=== PATIENT | male | born 1930 | race Caucasian/White ===

== ENCOUNTER 2016-05-02 16:11 | Observation (INO) | payer MEDICARE ==
[~2016-05-02] VITALS: Ht 170.2 cm; Wt 94.3 kg
[2016-05-02 16:15] VITALS: BP 134/99
[2016-05-02 16:38] LABS: BASOPHILS % (AUTO) 0 % (0-10); EOSINOPHILS # (AUTO) 0.2 10^3/uL (0.0-0.3); EOSINOPHILS % (AUTO) 3 % (0-10); LYMPHOCYTES # (AUTO) 2.2 X 10^3 (1.0-4.0); LYMPHOCYTES % (AUTO) 30 % (12-44); MEAN CORPUSCULAR HEMOGLOBIN 37 PG (25-34); MEAN CORPUSCULAR HGB CONC 37 G/DL (32-36); MEAN CORPUSCULAR VOLUME 99 FL (80-99); MEAN PLATELET VOLUME 9.7 FL (7.4-10.4); MONOCYTES # (AUTO) 0.8 X 10^3 (0.0-1.0); MONOCYTES % (AUTO) 10 % (0-12); NEUTROPHILS # (AUTO) 4.2 X 10^3 (1.8-7.8); NEUTROPHILS % (AUTO) 57 % (42-75); PLATELET COUNT 177 10^3/uL (130-400); RED BLOOD COUNT 4.37 10^6/uL (4.35-5.85); RED CELL DISTRIBUTION WIDTH 12.2 % (10.0-14.5); WHITE BLOOD COUNT 7.3 10^3/uL (4.3-11.0)
--- NOTE | 2016-05-02 16:43 | ED Neurological Problem ---
General Chief Complaint: Neuro-Stroke Like Symptoms Stated Complaint: SLURRED SPEECH/ISSUES WITH MOTOR SKILLS Source: patient (SPEECH DIFFICULT TO UNDERSTAND), family History of Present Illness Time seen by provider: 16:22 Initial Comments PT ARRIVES VIA POV FROM HOME PT HAS BEEN HAVING TIA/STROKE SYMPTOMS SINCE MARCH WITH OVERALL GRADUAL DECLINE IN NEURO STATUS--HAS BEEN SEEN BY DR. ENCARNACION, NEUROLOGIST ( HAS BEEN SEEING HIM FOR A LONG TIME, BUT PT AND FAMILY ARE NOT SURE WHY HE HAS BEEN SEEING HIM) , AND IS CURRENTLY ON PLAVIX PT HAS HAD WORSENING SYMPTOMS SINCE Monday04/29/16 WITH WORSENING OF SPEECH DIFFICULTIES, AND FAMILY NOTICED ON MONDAY THAT HE WAS HAVING PROBLEMS USING HIS RIGHT ARM--WEAK/COORDINATION PROBLEMS. SYMPTOMS ARE NOT ANY DIFFERENT TODAY FAMILY REPORT THAT SPEECH IS ACTUALLY BETTER AT THIS TIME HAVE NOT SOUGHT CARE FOR THIS MOST RECENT PROBLEM UNTIL TODAY. FAMILY CALLED NEUROLOGIST TODAY AND WAS TOLD TO COME HERE. NO HEADACHE NO DIZZINESS NO VISION CHANGES NO NAUSEA/VOMITING NO CHEST PAIN NO SHORTNESS OF BREATH PT ONLY HAS CHRONIC PAIN/NUMBNESS/TINGLING IN BOTH FEET FROM NEUROPATHY, AND IS EQUAL BILATERALLY AND NO DIFFERENT TODAY PCP: FT. [facility]AGO CODY. NEUROLOGIST: DR. ENCARNACION Allergies and Home Medications Allergies Coded Allergies: No Known Drug Allergies (Unverified , 01/16/11) Constitutional: no symptoms reported Eyes: No Symptoms Reported Ears, Nose, Mouth, Throat: no symptoms reported Respiratory: no symptoms reported Cardiovascular: no symptoms reported Gastrointestinal: LLQ Genitourinary: no symptoms reported Musculoskeletal: no symptoms reported Skin: no symptoms reported Psychiatric/Neurological: See HPI Endocrine: No Symptoms Reported Hematologic/Lymphatic: No Symptoms Reported Past Iicliqg-Gpiwid-Tgzkdq Hx Patient Social History Alcohol Use: Rarely Uses Recreational Drug Use: No Smoking Status: Former Smoker (QUIT 30 YEARS AGO, PER PT ON 05/02/16) Recent Foreign Travel: No Contact w/Someone Who Travel: No Surgeries HX Surgeries: Yes (CARDIAC CATH, STENT X 1) Surgeries: Cardiac, Coronary Stent Respiratory Hx Respiratory Disorders: No Cardiovascular Hx Cardiac Disorders: Yes Cardiac Disorders: Coronary Artery Disease, Heart Attack, Hypertension Neurological Hx Neurological Disorders: Yes Neurological Disorders: Neuropathy, TIA Genitourinary Hx Genitourinary Disorders: No Gastrointestinal Hx Gastrointestinal Disorders: No Musculoskeletal Hx Musculoskeletal Disorders: No Endocrine Hx Endocrine Disorders: Yes Endocrine Disorders: Diabetes, Non-Insulin dep HEENT HX ENT Disorders: No Cancer Hx Cancer: No Psychosocial Hx Psychiatric Problems: No Integumentary HX Skin/Integumentary Disorder: No Blood Transfusions Hx Blood Disorders: No Physical Exam Vital Signs Capillary Refill : General Appearance: WD/WN no apparent distress HEENT: PERRL/EOMI Neck: non-tender full range of motion supple normal inspection Respiratory: normal breath sounds no respiratory distress no accessory muscle use Cardiovascular: regular rate, rhythm no murmur Gastrointestinal: normal bowel sounds non tender soft Extremities: normal range of motion non-tender normal inspection no pedal edema no calf tenderness normal capillary refill Neurologic/Psychiatric: 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 BUT NOT ON MY EXAM. PT HAVING SOME SLURRED SPEECH AND EXPRESSIVE APHASIA) Crainal Nerves: PERRLNo facial droop Motor/Sensory: no sensory deficit Skin: normal color warm/dry Focused Exam Lactic Acid Level Laboratory Tests Test 05/02/16 16:31 Alanine Aminotransferase (ALT/SGPT) 34U/L (0-55) Albumin 4.2G/DL (3.2-4.5) Alkaline Phosphatase 54U/L (40-136) Anion Gap 10MMOL/L (5-14) Aspartate Amino Transf (AST/SGOT) 25U/L (5-34) BUN/Creatinine Ratio 19 Blood Urea Nitrogen 18MG/DL (7-18) Calcium Level 8.7MG/DL (8.5-10.1) Carbon Dioxide Level 24MMOL/L (21-32) Chloride Level 105MMOL/L (98-107) Creatinine 0.96MG/DL (0.60-1.30) Estimat Glomerular Filtration Rate > 60 Glucose Level 192MG/DL (70-105) H Magnesium Level 2.2MG/DL (1.8-2.4) Myoglobin 40.1NG/ML (10.0-92.0) Potassium Level 4.6MMOL/L (3.6-5.0) Sodium Level 139MMOL/L (135-145) TSH [place] Testing 0.68UIU/ML (0.35-4.94) Total Bilirubin 0.7MG/DL (0.1-1.0) Total Protein 7.4G/DL (6.4-8.2) Troponin I < 0.30NG/ML (<0.30) Progress/Results/Core Measures Results/Orders Lab Results Laboratory Tests Test 05/02/16 16:31 Range/Units Activated Partial Thromboplast Time 23 L 24-35 SEC Alanine Aminotransferase (ALT/SGPT) 34 0-55 U/L Albumin 4.2 3.2-4.5 G/DL Alkaline Phosphatase 54 40-136 U/L Anion Gap 10 5-14 MMOL/L Aspartate Amino Transf (AST/SGOT) 25 5-34 U/L BUN/Creatinine Ratio 19 Basophils # (Auto) 0.0 0.0-0.1 10^3/uL Basophils (%) (Auto) 0 0-10 % Blood Urea Nitrogen 18 7-18 MG/DL Calcium Level 8.7 8.5-10.1 MG/DL Carbon Dioxide Level 24 21-32 MMOL/L Chloride Level 105 98-107 MMOL/L Creatinine 0.96 0.60-1.30 MG/DL Eosinophils # (Auto) 0.2 0.0-0.3 10^3/uL Eosinophils (%) (Auto) 3 0-10 % Estimat Glomerular Filtration Rate > 60 Glucose Level 192 H 70-105 MG/DL Hematocrit 43 40-54 % Hemoglobin 16.0 13.3-17.7 G/DL INR Comment 1.1 0.8-1.4 Lymphocytes # (Auto) 2.2 1.0-4.0 X 10^3 Lymphocytes (%) (Auto) 30 12-44 % Magnesium Level 2.2 1.8-2.4 MG/DL Mean Corpuscular Hemoglobin 37 H 25-34 PG Mean Corpuscular Hemoglobin Concent 37 H 32-36 G/DL Mean Corpuscular Volume 99 80-99 FL Mean Platelet Volume 9.7 7.4-10.4 FL Monocytes # (Auto) 0.8 0.0-1.0 X 10^3 Monocytes (%) (Auto) 10 0-12 % Myoglobin 40.1 10.0-92.0 NG/ML Neutrophils # (Auto) 4.2 1.8-7.8 X 10^3 Neutrophils (%) (Auto) 57 42-75 % Platelet Count 177 130-400 10^3/uL Potassium Level 4.6 3.6-5.0 MMOL/L Prothrombin Time 13.7 12.2-14.7 SEC Red Blood Count 4.37 4.35-5.85 10^6/uL Red Cell Distribution Width 12.2 10.0-14.5 % Sodium Level 139 135-145 MMOL/L TSH [place] Testing 0.68 0.35-4.94 UIU/ML Total Bilirubin 0.7 0.1-1.0 MG/DL Total Protein 7.4 6.4-8.2 G/DL Troponin I < 0.30 <0.30 NG/ML White Blood Count 7.3 4.3-11.0 10^3/uL My Orders Orders-RUBY ROJAS DO Ekg Tracing (05/02/16 16:33) Cbc With Automated Diff (05/02/16 16:33) Comprehensive Metabolic Panel (05/02/16 16:33) Protime With Inr (05/02/16 16:33) Partial Thromboplastin Time (05/02/16 16:33) Magnesium (05/02/16 16:33) Chest 1 View, Ap/Pa Only (05/02/16 16:33) Cardiac Profile 1 (05/02/16 16:33) Cardiac Profile 2 (05/02/16 22:33) Myoglobin Serum (05/02/16 16:33) Ct Head Wo (05/02/16 16:33) Monitor-Rhythm Ecg Trace Only (05/02/16 16:33) Saline Lock/Iv-Start (05/02/16 16:33) Thyroid Analyzer (05/02/16 16:33) Ua Culture If Indicated (05/02/16 16:33) Enoxaparin Injection (Lovenox Injection) (05/02/16 17:30) Medications Given in ED Current Medications Medications Dose Ordered Sig/Taqueria Route Start Time Stop Time Status Last Admin Dose Admin Enoxaparin Sodium 100 mg ONCE ONCE SC 05/02/16 17:30 05/02/16 17:31 DC 05/02/16 17:59 100 MG Progress Note : Progress Note NO DETERIORATION IN PT'S CONDITION DURING ER STAY ECG Initial ECG Impression Time: 16:22 Initial ECG Rate: 76 Initial ECG Rhythm: Normal Sinus (RBBB) Initial ECG Comparisson: No Previous ECG Available Diagnostic Imaging Comments CXR--NO ACUTE PROCESS CT HEAD--CHRONIC SMALL VESSEL ISCHEMIC CHANGES, 6 MM HYPERDENSITY IN RIGHT PARIETAL AREA--CALCIFICATION VS PUNCTATE HEMORRHAGE PER RADIOLOGIST REPORTS @ 1645 Reviewed: Reviewed by Me, Discussed w/Radiologist Departure Communication Progress Notes 6455--SPOKE WITH DR. 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 Referrals: JOSÉ MIGUEL ROSALES MD (PCP/Family) Primary Care Physician RUBY ROJAS DO May 02, 2016 16:43
[2016-05-02 16:46] LABS: INR 1.1 (0.8-1.4); PROTHROMBIN TIME PATIENT 13.7 SEC (12.2-14.7)
--- NOTE | 2016-05-02 16:47 | Diagnostic Imaging Report ---
INDICATION: Slurred speech EXAM: Portable chest at 4:39 p.m. FINDINGS: Heart size and pulmonary vascularity are normal. Lungs are clear. There are no effusions or pneumothoraces IMPRESSION: Negative chest Dictated by: Dictated on workstation # [id number]
[2016-05-02 16:54] LABS: ALANINE AMINOTRANSFERASE 34 U/L (0-55); ALBUMIN 4.2 G/DL (3.2-4.5); ANION GAP 10 MMOL/L (5-14); ASPARTATE AMINO TRANSFERASE 25 U/L (5-34); BILIRUBIN,TOTAL 0.7 MG/DL (0.1-1.0); BLOOD UREA NITROGEN 18 MG/DL (7-18); BUN/CREATININE RATIO 19; CALCIUM 8.7 MG/DL (8.5-10.1); CARBON DIOXIDE 24 MMOL/L (21-32); CHLORIDE 105 MMOL/L (98-107); CREATININE SERUM 0.96 MG/DL (0.60-1.30); GFR ESTIMATED > 60; GLUCOSE 192 MG/DL (70-105); MAGNESIUM 2.2 MG/DL (1.8-2.4); POTASSIUM 4.6 MMOL/L (3.6-5.0); SODIUM 139 MMOL/L (135-145); TOTAL PROTEIN 7.4 G/DL (6.4-8.2)
--- NOTE | 2016-05-02 17:02 | Diagnostic Imaging Report ---
PROCEDURE: CT head without contrast. TECHNIQUE: Multiple contiguous axial images were obtained through the brain without the use of intravenous contrast. INDICATION: Slurred speech. FINDINGS: There is a 6 mm hyperdense focus seen in the right periventricular white matter, indeterminate whether it represents a focal intraparenchymal hemorrhage or calcification. There is background periventricular and deep white matter hypodensities compatible with chronic microvascular ischemic changes with old appearing lacunar infarcts in the left [place] radiata. There is no hydrocephalus. No extra-axial fluid collection is seen. The calvarium, the paranasal sinuses and orbits visualized portions appear grossly unremarkable. IMPRESSION: There is a 6 mm focus of hyperdensity in the periventricular white matter which may relate to calcification or focal parenchymal hemorrhage. There is background chronic microvascular ischemic changes in the white matter. No prior studies are available for comparison. A CT scan followup in 24-48 hours is suggested. The findings were discussed with Dr. Gomez by Dr. Lyle at time of dictation. Dictated by: Dictated on workstation # [id number]
[2016-05-02 17:14] LABS: MYOGLOBIN SERUM 40.1 NG/ML (10.0-92.0)
[2016-05-02] MEDS ORDERED: ENOXAPARIN 100 MG/1 ML (LOVENOX) SYR SC ONE (17:30)
[2016-05-02] MEDS ORDERED: ASPI-999 PO (18:39)
[2016-05-02] MEDS ORDERED: SIMV40TA4 PO (18:39)
[2016-05-02] MEDS ORDERED: CLOP75TA28 PO (18:39)
[2016-05-02] MEDS ORDERED: LISI40TA PO (18:39)
[2016-05-02] MEDS ORDERED: DOXA8TAB73 PO (18:39)
[2016-05-02] MEDS ORDERED: PHEN100C11 PO (18:39)
[2016-05-02] MEDS ORDERED: FINA5TAB6 PO (18:39)
[2016-05-02] MEDS ORDERED: GLYB5TAB6 PO (18:39)
[2016-05-02] MEDS ORDERED: FISH1CAP15 PO (18:39)
[2016-05-02] MEDS ORDERED: DONE10TA41 PO (18:39)
[2016-05-02] MEDS ORDERED: CYAN25006 SL (18:39)
[2016-05-02 19:00] VITALS: BP 142/72
[2016-05-02] MEDS ORDERED: CATHETER FLUSH 10 ML SYR IV PRN (19:00)
[2016-05-02] MEDS: ENOXAPARIN 100 MG/1 ML (LOVENOX) SYR SC SCH (19:11)
[2016-05-02 20:00] VITALS: BP 142/72
[2016-05-02 21:00] VITALS: BP 148/88
[2016-05-02 22:00] VITALS: BP 134/65
[2016-05-02 23:00] VITALS: BP 143/71
[2016-05-02] MEDS: CATHETER FLUSH 10 ML SYR IV SCH (23:20)
[2016-05-03] VITALS (17 sets, daily range): BP systolic 108–149; BP diastolic 64–96
[2016-05-03 04:37] LABS: BASOPHILS % (AUTO) 0 % (0-10); EOSINOPHILS # (AUTO) 0.4 10^3/uL (0.0-0.3); EOSINOPHILS % (AUTO) 5 % (0-10); LYMPHOCYTES % (AUTO) 40 % (12-44); MEAN CORPUSCULAR HEMOGLOBIN 36 PG (25-34); MEAN CORPUSCULAR HGB CONC 36 G/DL (32-36); MEAN CORPUSCULAR VOLUME 99 FL (80-99); MONOCYTES # (AUTO) 0.8 X 10^3 (0.0-1.0); MONOCYTES % (AUTO) 11 % (0-12); NEUTROPHILS # (AUTO) 3.3 X 10^3 (1.8-7.8); NEUTROPHILS % (AUTO) 45 % (42-75); PLATELET COUNT 159 10^3/uL (130-400); RED CELL DISTRIBUTION WIDTH 12.3 % (10.0-14.5); WHITE BLOOD COUNT 7.4 10^3/uL (4.3-11.0)
[2016-05-03 05:12] LABS: ALANINE AMINOTRANSFERASE 31 U/L (0-55); ALBUMIN 3.6 G/DL (3.2-4.5); ANION GAP 11 MMOL/L (5-14); ASPARTATE AMINO TRANSFERASE 22 U/L (5-34); BILIRUBIN,TOTAL 0.4 MG/DL (0.1-1.0); BLOOD UREA NITROGEN 16 MG/DL (7-18); BUN/CREATININE RATIO 18; CALCIUM 8.3 MG/DL (8.5-10.1); CARBON DIOXIDE 24 MMOL/L (21-32); CHLORIDE 106 MMOL/L (98-107); CREATININE SERUM 0.89 MG/DL (0.60-1.30); GFR ESTIMATED > 60; GLUCOSE 156 MG/DL (70-105); POTASSIUM 4.2 MMOL/L (3.6-5.0); SODIUM 141 MMOL/L (135-145); TOTAL PROTEIN 6.4 G/DL (6.4-8.2)
[2016-05-03] MEDS: ENOXAPARIN 100 MG/1 ML (LOVENOX) SYR SC SCH ×2 (06:09→16:55)
[2016-05-03] MEDS: CATHETER FLUSH 10 ML SYR IV SCH (06:12)
[2016-05-03] MEDS ORDERED: CYAN250010 PO (10:04)
--- NOTE | 2016-05-03 10:35 | History & Physical-Hospitalist ---
HPI History of Present Illness: HPI/Chief Complaint The patient's an 86-year-old white male who is brought to the emergency room last night by his family. From the patient and his family get a history going back Perhaps 2 months in which he had developed speech problems as well as some swallowing difficulty. There is some statement of mild right-sided weakness. They thought that this had gotten somewhat worse yesterday and had called their neurologist Dr. Tres banda [place] who advised them to get to the nearest emergency room. The definition of acute phase here is difficult to extract Date Seen 05/03/16 Attending Physician Lior Dasilva MD PCP No,Local Physician Referring Physician Date of Admission May 02, 2016 at 17:37 Home Medications & Allergies Home Medications Reviewed patient Home Medication Reconciliation Form Allergies Allergies Coded Allergies No Known Drug Allergies (Cxcjcgpucq16/4/11) Past Rcrzwin-Xoerpe-Fbzogf Hx Patient Social History Alcohol Use: Occasionally Uses Recreational Drug Use: No Smoking Status: Former Smoker Physical Abuse Screen: No Sexual Abuse: No Recent Foreign Travel: No Contact w/other who traveled: No Recent Hopitalizations: No Recent Infectious Disease Expo: No Immunizations Up To Date Date of Pneumonia Vaccine: Dec 15, 2015 Date of Influenza Vaccine: Oct 15, 2015 Surgeries HX Surgeries: Yes (CARDIAC CATH, STENT X 1) Surgeries: Cardiac, Coronary Stent Respiratory Hx Respiratory Disorders: No Cardiovascular Hx Cardiovascular Disorders: Yes Cardiac Disorders: Coronary Artery Disease, Heart Attack, Hypertension Neurological Hx Neurological Disorders: Yes Neurological Disorders: Neuropathy, TIA Genitourinary Hx Genitourinary Disorders: No Gastrointestinal Hx Gastrointestinal Disorders: No Musculoskeletal Hx Musculoskeletal Disorders: No Endocrine Hx Endocrine Disorders: Yes Endocrine Disorders: Diabetes, Non-Insulin dep HEENT HX ENT Disorders: No HEENT Disorders: Cataract Cancer Hx Cancer: No Psychosocial Hx Psychiatric Problems: No Integumentary HX Skin/Integumentary Disorder: No Blood Transfusions Hx Blood Disorders: No Family Medical History Family Hx: Diabetes mellitus 19 MOTHER FH: congestive heart failure 19 MOTHER Headache disorder Hypertension 19 FATHER Myocardial infarction 19 FATHER Review of Systems Constitutional: see HPI EENTM: see HPI Respiratory: no symptoms reported Cardiovascular: other (previous NV) Gastrointestinal: no symptoms reported Genitourinary: no symptoms reported Musculoskeletal: muscle weakness Skin: no symptoms reported Psychiatric/Neurological: Numbness Pre-Existing Deficit Tremors (left hand) Physical Exam Physical Exam Vital Signs Vital Sign - Last 12Hours Capillary Refill : Less Than 3 Seconds General Appearance: Mild Distress Eyes: Bilateral Eye Normal Inspection Neck: Normal Inspection Respiratory: Decreased Breath Sounds (distant but clear) Cardiovascular: Regular Rate, Rhythm No Edema No Gallop No JVD No Murmur Normal Peripheral Pulses Gastrointestinal: Normal Bowel Sounds No Organomegaly No Pulsatile Mass Non Tender Soft Back: Normal Inspection No CVA Tenderness No Vertebral Tenderness Extremity: Normal Capillary Refill Normal Inspection Normal Range of Motion Non Tender No Calf Tenderness No Pedal Edema Neurologic/Psychiatric: Alert Oriented x3 No Motor/Sensory Deficits Normal Mood/Affect Skin: Normal Color Warm/Dry Lymphatic: No Adenopathy Comments The patient is alert and pleasant. His tentative in speech and a man of few words. These tend to be somewhat difficult to understand. It also appears that he may have some difficulty in swallowing. I note no abnormality relative to his strength in the upper and lower extremities. [place] [employer] and coordination in the hands appear to be normal. Extension of the hands show a mild tremor on the left. Results Results/Procedures Lab Laboratory Tests 05/02/16 16:31 05/03/16 04:00 Assessment/Plan Admission Diagnosis 1.previous CVA as characterized by speech abnormality and swallowing difficulties. 2.questionable recent increase in symptomatology. 3.past history of myocardial infarction. 4.hypertension. 5.diabetes mellitus type II uzk-rpqxxyg-alaljntps. 6.peripheral neuropathy Assessment and Plan Complete studies relative to MRI, physical therapy, speech therapy, occupational therapy. In addition carotid Dopplers and echocardiogram will be done. Clinical Quality Measures DVT/VTE Risk/Contraindication: Risk Factor Score Per Nursin RFS Level Per Nursing on Admit: 4+=Very High Stroke: Date of last known well: Apr 29, 2016 LIOR DASILVA MD May 03, 2016 10:35
[2016-05-03] MEDS ORDERED: PHENYTOIN 100 MG (DILANTIN) CAP PO SCH (10:54)
[2016-05-03] MEDS ORDERED: lisINopril 20 MG (ZESTRIL) TAB PO SCH (10:55)
[2016-05-03] MEDS ORDERED: CLOPIDOGREL 75 MG (PLAVIX) TABLET PO SCH (10:55)
[2016-05-03] MEDS ORDERED: PATIENT MAY USE OWN MEDS, ALL MC SCH (11:15)
--- NOTE | 2016-05-03 11:19 | Diagnostic Imaging Report ---
PROCEDURE: US Carotid Duplex Bilateral. TECHNIQUE: Multiple real-time grayscale images were obtained over the carotid arteries in various projections bilaterally. Additional duplex Doppler and color Doppler images were also obtained. INDICATION: Difficulty speaking. FINDINGS: Grayscale images demonstrate mild thoracic atherosclerotic plaque along the carotid bifurcation slightly more prominent on the right side. Color Doppler demonstrates patency of the common, internal and external carotid arteries bilaterally. The vertebral arteries demonstrate antegrade flow on both sides. The right ICA velocities are 60, 50 and 82 CM per second from proximal to distal and on the left side 48, 44 and 53 CM per second. ICA versus CCA ratios are up to 1.1 on the right and up to 0.6 on the left. IMPRESSION: Asymmetric underlying stenosis is in the range of 0-40% bilaterally. Dictated by: Dictated on workstation # [id number]
--- NOTE | 2016-05-03 11:48 | Occupational Therapy Eval ---
OT Evaluation-General/PLF Medical Diagnosis Admission Date May 02, 2016 at 17:37 Medical Diagnosis: CVA with right sided weakness and aphasia Onset Date: May 02, 2016 (Daughter in room. States that pt. has acutally had symptoms for approximately 3 weeks, and that she was finally able to convince him to come to hospital.) Therapy Diagnosis Therapy Diagnosis: right sided weakness, Decreased ADL skills Height/Weight Height (Feet): 5 Height (Inches): 7.00 Weight (Pounds): 209 Weight (Ounces): 14.4 Precautions Precautions/Isolations: Fall Prevention, Standard Precautions Safety Interventions: Bed Exit Alarm, Reorient-PRN Weight Bear Status Weight Bearing Restriction: Weight Bearing/Tolerated Referral Physician: Dr. Reinoso Referral Reason: Activity Tolerance, Self Care, Evaluation/Treatment, Strengthening/ROM Medical History Pertinent Medical History: CAD, HTN Additional Medical History cardiac cath, stent x 1 Current History Daughter states that pt. has been "going down hill" for approximately 3 weeks. She states that he got to the point that she almost could not get him out of the car. She was finally able to convince him to come to the hospital. Reviewed History: Yes Social History Home: Single Level Current Living Status: Alone Entry Into Home: Ramp Steps Into Home: 1 (1 step over threshold.) ADL-Prior Level of Function ADL PLOF Comments Previous to 3 weeks ago, when pt. began having symptoms, he was completely independent with daily tasks. DME/Equipment: Bath Chair, Shower DME/Equipment Comments Pt. has a cane that he uses, and a rolling walker that he does not. Drive Self: Yes OT Current Status Subjective No pain reported at this time. Appearance Pt. has just returned from getting CT scan. In wheelchair. Agrees to allow OT to assist him to bed. Mental Status/Objective Patient Orientation: Person, Place Pt. is able to answer in one word answers. This is difficult for him however. Current Hand Dominance: Right Upper Extremity ROM Pt. is able to flex bilateral shoulders to approximately 100 degrees in bed. Demonstrates adequate ROM throughout other planes. Upper Extremity Coordination Seems intact at evaluation. Upper Extremity Strength 5/5 distally in left UE, 4/5 distally in right UE. Edema: no edema noted. ADL-Treatment Functional [place] Measure 0=Not Assessed/NA 4=Minimal Assistance 1=Total Assistance 5=Supervision or Setup 2=Maximal Assistance 6=Modified [place] 3=Moderate Assistance 7=Complete IndependenceIRFPAI Quality Coding Scale 6 Independent with activity with or without an assistive device 5 Patient requires set up or clean up by helper. Patient completes activity by themselves 4 Supervision or touching assist (CGA). Mousie provide cues , steadying assist 3 The helper provides less than half the effort to complete the activity 2 The helper provides more than half the effort to complete the activity 1 Dependent. The helper does all the effort to complete an activity 7 Patient refused to complete or attempt activity 9 The patient did not perform the activity before the current illness or injury 88 Not attempted due to Medical conditions or safety concerns Eating (FIM): 5 (Family states that he has been able to feed himself and swallow. However, has not been hungry. Daughter concerned over this, with pt. having diabetes. However, reported this to nursing and they are watching his blood sugar, and have been offering him food.) Lower Body Dressing (FIM): 3 (Pt. already dressed but did practice doffing/ donning socks. Pt. able to doff socks, but had difficulty getting on his left sock. Continually attempted to put it in between toes. OT assisted him.) Transfers (B, C, W/C) (FIM): 4 (Pt. required min assist to stand and take steps to bed. Pt. able to lay down with SBA, and able to pull self up in bed with SBA and cues to continue to do so.) Other Treatments Spoke with daughter and pt. regarding need for further therapy services. Pt.'s daughter had questions about "what is next." OT educated them on difference between inpatient rehab to go home, and skilled therapy. Pt. made face and daughter states, "he does not like that" when possible intermediate placement was brought up. It is felt at time of this evaluation, that pt. would be a good rehab candidate. Education OT Patient Education: Correct positioning, Exercise program, Modified ADL techniques, Progress toward Goal/Update tx plan, Purpose of tx/functional activities, Reviewed precautions, Rehab process, Transfer techniques Teaching Recipient: Patient, Family Teaching Methods: Demonstration, Discussion Response to Teaching: Verbalize Understanding, Return Demonstration OT Short Term Goals Short Term Goals Time Frame: May 10, 2016 Eating(FIM): 6 Grooming(FIM): 5 Bathing(FIM): 4 Upper Body Dressing(FIM): 4 Lower Body Dressing(FIM): 4 Toileting(FIM): 4 Transfers (B,C,W/C) (FIM): 5 Toilet/Commode Transfer(FIM): 5 Shower Transfer(FIM): 4 Additional Short Term Goals: 1-Demonstrate ADL Tasks, 2-Verbalize Understanding , 3-ImproveStrength/Gamaliel 1=Demonstrate adherence to instructed precautions during ADL tasks. 2=Patient will verbalize/demonstrate understanding of assistive devices/ modifications for ADL. 3=Patient will improve strength/tolerance for activity to enable patient to perform ADL's. OT Mcfp Goals Mcfp Goals Time Frame: May 24, 2016 Eating (FIM): 6 Grooming(FIM): 6 Bathing(FIM): 5 Upper Body Dressing(FIM): 6 Lower Body Dressing(FIM): 6 Toileting(FIM): 6 Transfers (B,C,W/C) (FIM): 6 Toilet/Commode Transfer(FIM): 6 Shower Transfer(FIM): 5 Additional Goals: 1-Demonstrate ADL Tasks, 2-Verbalize Understanding, 3- ImproveStrength/Gamaliel 1=Demonstrate adherence to instructed precautions during ADL tasks. 2=Patient will verbalize/demonstrate understanding of assistive devices/ modifications for ADL. 3=Patient will improve strength/tolerance for activity to enable patient to perform ADL's. OT Education/Plan Problem List/Assessment Assessment: Decreased Activ Tolerance, Decreased UE Strength, Dependent Transfers, Impaired Bed Mobility, Impaired Funct Balance, Impaired I ADL's, Impaired Self-Care Skills, Restricted Funct UE ROM Discharge Recommendations Plan/Recommendations: Continue POC Therapy D/C Recommendations: Acute Rehab Target Placement Pt. would benefit from inpatient rehab services. Treatment Plan/Plan of Care Treatment,Training & Education: Yes Patient would benefit from OT for education, treatment and training to promote independence in ADL's, mobility, safety and/or upper extremity function for ADL' s. Plan of Care: ADL Retraining, Caregiver Training, Cognitive Retraining, Functional Mobility, Group Exercise/Act as Ind, UE Funct Exercise/Act Treatment Duration: May 24, 2016 # of days/week 5-6 Visits Per Week: 5-6 Agreement: Yes Rehab Potential: Good Time/GCodes Start Time: 10:30 Stop Time: 10:50 Total Time Billed (hr/min): 20 Billed Treatment Time 1, EVhigh complexity x 20minutes TREY MICHELLE OT May 03, 2016 11:47
--- NOTE | 2016-05-03 11:51 | Diagnostic Imaging Report ---
PROCEDURE: CT head without contrast. TECHNIQUE: Multiple contiguous axial images were obtained through the brain without the use of intravenous contrast. INDICATION: Slurred speech. Followup hyperdensity in the right frontoparietal region. FINDINGS: When compared to 05/02/2016, a 6 cm hyperdensity in the right periventricular white matter is again noted without change. This could be a focus of parenchymal hemorrhage or calcification. There are background prominent periventricular and deep white hypodensities and lacunar infarcts in the white matter, more prominent in the left periventricular region. There is no hydrocephalus. No extra-axial fluid collection is seen. Geographic lucencies in the superior aspect of the calvarium in the frontal region on both sides are probably related to venous lakes. The visualized paranasal sinuses demonstrate minimal mucosal thickening in the left maxillary sinus. The orbits appear grossly unremarkable. IMPRESSION: The unchanged 6 mm right centrum semiovale hyperdensity could relate to focal parenchymal calcification or intraparenchymal hemorrhage. Dictated by: Dictated on workstation # [id number]
--- NOTE | 2016-05-03 12:16 | Physical Therapy Evaluation ---
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 States that pt. has acutally had symptoms for approximately 3 weeks, and that she was finally able to convince him to come to hospital.) Therapy Diagnosis Therapy Diagnosis: weakness; abn gait Height/Weight Height (Feet): 5 Height (Inches): 7.00 Weight (Pounds): 209 Weight (Ounces): 14.4 Precautions Precautions/Isolations: Fall Prevention, Standard Precautions Weight Bear Status Weight Bearing Restriction: Weight Bearing/Tolerated Referral Physician: Dr. Reinoso Reason for Referral: Evaluation/Treatment Medical History Pertinent Medical History: CAD, DM, HTN, [place] Current History Pt presents to ED with complaints of TIA like symptoms and expressive aphasia. Chart review indicates TIA-like symptoms since Mar with a gradual decline in function. Reviewed History: Yes Social History Home: Single Level Current Living Status: Alone Entry Into Home: Ramp PT Steps Into Home: 1 (1 step over threshold.) Prior/Core FIM Prior Level of Function Functional [place] Measure 0=Not Assessed/NA 4=Minimal Assistance 1=Total Assistance 5=Supervision or Setup 2=Maximal Assistance 6=Modified [place] 3=Moderate Assistance 7=Complete [place] Bed Mobility: 7 Transfers (B,C,W/C) (FIM): 7 Gait: 6 (occas use of cane) Reports he was able to bathe and dress himself and prepare meals. Reports he had someone clean his house. He was unclear if he did own shopping or not. PT Evaluation-Current Subjective Agreeable to PT. No complaints. Pain Numeric Pain Scale: 0-No Pain Location: No Pain Reported Objective Patient Orientation: Person, Place, Time, Situation Problem Solving: Fair ROM/Strength ROM Lower Extremities WFL Strenght Lower Extremities LE strength is grossly 4/5 throughout; unable to detect significant difference between left and right except DF on the right is 3/5. Integumentary/Posture Integumentary intact Bowel Incontinence: No Bladder Incontinence: No Posture normal and symmetrical Neuromuscular (Tone, Coordination, Reflexes) No noted tone. Decreased coordination right LE during gait. Reflexes intact. Sensory Vision: Functional Hearing: Functional Hand Dominance: Right Sensation Right Lower Extremit: Intact Sensation Left Lower Extremity: Intact Transfers Functional [place] Measure 0=Not Assessed/NA 4=Minimal Assistance 1=Total Assistance 5=Supervision or Setup 2=Maximal Assistance 6=Modified [place] 3=Moderate Assistance 7=Complete [place] Transfers (B, C, W/C) (FIM): 4 Supine to/from Sit: 4 (min assit to lift trunk) Sit to/from Stand: 4 (min -CGA to steady him) Gait Mode of Locomotion: Walk Anticipated Mode of Locomotion: Walk Gait (FIM): 2 Distance (FIM): 9=677-22 ft Distance: 125 ft Gait Level of Assist: 4 Gait Assistive Device: FWW Comments/Gait Description Narrow NERY with occas crossing; difficulty with turning 180 degrees with incidences of scissored gait; no yefri LOB noted but necessary to provide close CGA. Balance Sitting Static: Good Sitting Dynamic: Fair Standing Static: Fair Standing Dynamic: Fair Treatment Functional transfers and facilitation of transfers; functional mobility. Pt in chair post treatment with needs met. Assessment/Needs Pt presents with CVA like symptoms with continued testing to diagnose. He has slight weakness in DF on the right LE; requires assist with transfers, has balance deficits and impaired functional gait requiring assist for safety. He follows cues well and is participatory and motivated. He does demonstrate expressive aphasia. He would benefit from skilled PT services to address above noted deficits and assist in functional safety and mobility to allow him to return home alone as before. Rehab Potential: Good PT Short Term Goals Short Term Goals Time Frame: May 07, 2016 Transfers (B,C,W/C) (FIM): 5 Gait (FIM): 4 Distance (FIM): 3=150 ft Gait Assistive Device: FWW Additional Short Term Goals Post STG, recommend follow up therapy services at a different level of care to achieve mod indep status. PT Plan Problem List Problem List: Activity Tolerance, Functional Strength, Safety, Balance, Gait, Transfer, Bed Mobility Treatment/Plan Treatment Plan: Continue Plan of Care Treatment Plan: Bed Mobility, Education, Functional Activity Gamaliel, Functional Strength, Gait, Safety, Therapeutic Exercise, Transfers Treatment Duration: May 07, 2016 # of days/week 5-6 Visits Per Week: 11 Pt/Family Agrees w/Plan: Yes Safety Risks/Education Patient Education: Transfer Techniques, Safety Issues Teaching Recipient: Patient Teaching Methods: Demonstration, Discussion Response to Teaching: Reinforcement Needed Time/GCodes Time In: 1112 Time Out: 1140 Total Billed Treatment Time: 28 Total Billed Treatment visit EVM 15 FA 13 G Codes Necessary: Yes PT/OT Therapy GCodes Therapy Functional Limitation: Physical Therapy Test(s)/Tool used to determine: Level of Assistance Scale Functional Limitation-Current Charge Code: MOBCUR Modifier: RODERICK Functional Limitation-Goal Charge Code: KENNETH Modifier: MERNA JESSICA PT May 03, 2016 12:15
--- NOTE | 2016-05-03 12:58 | ST Dysphagia Evaluation ---
Speech Evaluation-General Medical Diagnosis CVA with Right Sided Weakness and Expressive Aphasia Onset Date: May 02, 2016 (Daughter in room. States that pt. has acutally had symptoms for approximately 3 weeks, and that she was finally able to convince him to come to hospital.) Therapy Diagnosis Therapy Diagnosis: Oropharyngeal Swallow WNL Precautions Precautions: Aspiration Precautions/Isolations: Fall Prevention, Standard Precautions Referral Referring Physician: Dr. Lior Reinoso Reason for Referral: Evaluation/Treatment Clinical Bedside Swallowing Evaluation Medical History Pertinent Medical History: CAD, DM, HTN, [place] TIA Reviewed History: Yes Social History Current Living Status: Alone Speech PLF/Current-Dysphagia Prior Level of Function While the patient does demonstrate mild to moderate expressive aphasia, he was able to report he consumed a regular diet with thin liquids prior to admission. The patient denied signs/symptoms of aspiration with the diet consistency he currently consumes. Subjective The patient was recently admitted to [facility] with a diagnosis of CVA with residual right sided weakness and expressive aphasia. Per chart review , the patient has been experiencing "speech" difficulties and progressive weakness since March 2016. The patient greeted the clinician upon entrance and agreed to participate in the dysphagia evaluation on this date. CXR: 05/02/2016: Negative Chest. Cognitive Status Patient Orientation: Person Oral Motor Skills Dentition: Natural Current Food Consistancy: Regular, Thin Liquids Ability to Follow Directions: Good The patient is currently receiving a heart healthy diet. Voice Voice Phonatory-Based Quality: Normal Voice Pitch: Normal Voice Loudness: Normal Face Facial Symmetry: Symmetrical Oral-Facial Assessment Oral-Facial Dentition: Normal Labial Seal Description: Normal Smile: Normal Puff Cheeks: Normal Lingual Protrusion: Normal Lingual ROM: Normal Lingual Strength: Normal Pharynx Velopharyngeal Move.: Normal Volitional Dry Swallow: Yes Dysphagia Evaluation Consistencies Presented: Regular, Thin Liquid, Pureed No oral impairments were noted throughout the evaluation. No pharyngeal impairments were noted throughout the evaluation. - Thin liquid (via teaspoon, cup sip, straw), puree, and solid: No signs/ symptoms of aspiration were demonstrated with multiple boluses of each consistency tested. The patient's vocal quality remained clear and his SpO2% remained stable at 93%. Dietary Recommendations: Regular Liquid Recommendations: Thin Swallowing Precautions: Small Bites and Sips, Sitting Upright 90 Degrees Dysphagia Evaluation Summary Oropharyngeal swallow function grossly WNL Speech-Plan Treatment Plan Speech Therapy Treatment Plan: Discontinue ST (For dysphagia, only.) Discontinue skilled speech services for dysphagia. Skilled speech services will continue with a detailed expressive and receptive language assessment. Rehab Potential: Good Safety Risks/Education Teaching Recipient: Patient Teaching Methods: Discussion Response to Teaching: Verbalize Understanding Education Topics Provided: Results, Recommendations, Signs/symptoms of aspiration Time Speech Therapy Time In: 10:40 Speech Therapy Time Out: 11:00 Total Billed Time: 20 Billed Treatment Time 1, DYSEVS Speech GCodes Functional Limitation-Current Current: ELDER Modifier: CH Functional Limitation-Goal Goal: SWALGOAL Modifier: CH Functional Limitation-D/C Discharge: [facility] Modifier: CH AUBREY MCMILLAN May 03, 2016 12:58
[2016-05-03] MEDS: LISINOPRIL 40 MG PO SCH (14:01)
[2016-05-03] MEDS: CLOPIDOGREL 75 MG (PLAVIX) TABLET PO SCH (14:01)
[2016-05-03] MEDS: PHENYTOIN 100 MG (DILANTIN) CAP PO SCH ×2 (14:02→20:49)
[2016-05-03] MEDS ORDERED: GADOBUTROL 10 MMOL/10 ML (GADAVIST) VIAL IV ONE (14:45)
--- NOTE | 2016-05-03 16:01 | Physical Therapy Daily Note ---
PT Daily Note-Current Subjective Pt sitting in recliner upon arrival and had just gotten back from MRI. Pt agrees to walk with PT. Mental Status Patient Orientation: Person, Place, Situation Transfers Functional [place] Measure 0=Not Assessed/NA 4=Minimal Assistance 1=Total Assistance 5=Supervision or Setup 2=Maximal Assistance 6=Modified [place] 3=Moderate Assistance 7=Complete IndependenceIRFPAI Quality Coding Scale 6 Independent with activity with or without an assistive device 5 Patient requires set up or clean up by helper. Patient completes activity by themselves 4 Supervision or touching assist (CGA). [place] provide cues , steadying assist 3 The helper provides less than half the effort to complete the activity 2 The helper provides more than half the effort to complete the activity 1 Dependent. The helper does all the effort to complete an activity 7 Patient refused to complete or attempt activity 9 The patient did not perform the activity before the current illness or injury 88 Not attempted due to Medical conditions or safety concerns Transfers (B, C, W/C) (FIM): 5 Scootin Sit to/from Stand: 5 Weight Bearing Weight Bearing Restriction: Full Weight Bearing Location Restriction: L LE Gait Training Gait (FIM): 4 Distance (FIM): 3=150 ft Distance: 400' Gait Level of Assist: 4 Gait Persons Needed: 1 Gait Assistive Device: FWW Pt ambulates at close CGA for safety due scissoring of feet when turning. Treatments Pt transferred at SBA using FWW. Pt ambulated using FWW at close CGA for safety. Pt returns to EOB in room to rest and visit with family at end of tx with all needs met. Assessment Current Status: Good Progress Pt wants to increase his walking distance and get stronger to go home. PT Short Term Goals Short Term Goals Time Frame: May 07, 2016 Transfers (B,C,W/C) (FIM): 5 Gait (FIM): 4 Distance (FIM): 3=150 ft Gait Assistive Device: FWW PT Plan Problem List Problem List: Activity Tolerance, Functional Strength, Safety, Balance, Gait, Transfer Treatment/Plan Treatment Plan: Continue Plan of Care Treatment Plan: Bed Mobility, Education, Functional Activity Gamaliel, Functional Strength, Gait, Safety, Therapeutic Exercise, Transfers Treatment Duration: May 07, 2016 Visits Per Week: 11 Safety Risks/Education Patient Education: Gait Training, Transfer Techniques, Correct Positioning, Safety Issues Teaching Recipient: Patient Teaching Methods: Discussion Response to Teaching: Verbalize Understanding Time/GCodes Time In: 1530 Time Out: 1545 Total Billed Treatment Time: 15 Total Billed Treatment visit, GT (15m) PT/OT Therapy GCodes Therapy Functional Limitation: Physical Therapy Test(s)/Tool used to determine: Level of Assistance Scale Functional Limitation-Current Charge Code: MOBCUR Modifier: FERN Functional Limitation-Goal Charge Code: MOBGOAL Modifier: SAKSHI ANDERSON LADLE PULLER May 03, 2016 16:01
--- NOTE | 2016-05-03 16:08 | Diagnostic Imaging Report ---
PROCEDURE: MR imaging of the brain with and without contrast. TECHNIQUE: Multiplanar, multisequence MR imaging of the brain was performed with and without contrast. INDICATION: Weakness. Slurred speech. 9 mL of Gadavist is administered intravenously. FINDINGS: There are areas of diffusion restriction seen in the periventricular white matter on the left side along the frontoparietal region of the [place] radiata with patchy areas, the largest is 1.6 x 1 cm in size. This is associated with T2 hyperintense lesion and no contrast enhancement compatible with a late acute to subacute infarct. These are within the left MCA territory. There is background T2 hyperintense signal seen in the white matter bilaterally in periventricular, deep and juxtacortical locations compatible with chronic microvascular ischemic changes. There is no enhancing mass in the brain or extra-axial space. There is no hydrocephalus. No fluid collection in the extra-axial space is seen. The focus of hyperdensity seen in the right centrum semiovale noted on concurrent CT scan is occult by MRI. As explained on the CT scan report, it could be related to focal parenchymal calcification or hemorrhage. Based on the acute infarcts in the left [place] radiata, probably explaining the symptoms, the right centrum semiovale hyperdensity on CT scan is more likely to be incidental calcification from prior insult. The pituitary gland is normal in size. No hypothalamic or pineal region mass. The internal auditory canals and inner ear structures appear unremarkable. The central vascular flow-voids appear preserved. The visualized portions of the paranasal sinuses and the mastoid air cells demonstrate no significant abnormality. The orbits appear symmetric. IMPRESSION: 1. Patchy relatively small areas of late acute to subacute infarcts within the left frontoparietal periventricular white matter up to 2 cm in size. These are within the left MCA territory. 2. The focal hyperdensity in the right frontoparietal region seen on CT scan is occult by MRI. Given the recent infarct in the left hemisphere, probably explaining the recent symptoms, the focal hyperdensity CT finding is favored to be an incidental parenchymal calcification. Dr. Reinoso was informed of the findings at time of dictation. Dictated by: Dictated on workstation # [id number]
[2016-05-03] MEDS: glyBURIDE 5 MG (MICRONASE) TAB PO SCH (16:55)
[2016-05-03] MEDS ORDERED: ASPIRIN 81 MG CHEW (CHILDREN'S ASA) PO SCH (21:00)
[2016-05-03] MEDS ORDERED: SIMvastatin 40 MG (ZOCOR) TAB PO SCH (21:00)
[2016-05-03] MEDS ORDERED: DONEPEZIL 10 MG (ARICEPT) TAB PO SCH (21:00)
[2016-05-04 04:00] VITALS: BP 136/74
[2016-05-04] MEDS: ENOXAPARIN 100 MG/1 ML (LOVENOX) SYR SC SCH (06:10)
[2016-05-04] MEDS: glyBURIDE 5 MG (MICRONASE) TAB PO SCH (06:11)
--- NOTE | 2016-05-04 08:06 | ECHOCARDIOGRAPHY REPORT ---
PROCEDURE PHYSICIAN: GIOVANNY CARDOSO DATE OF PROCEDURE: 05/03/2016 TWO DIMENSIONAL ECHOCARDIOGRAM REPORT PRIMARY PHYSICIAN: OTHER PHYSICIAN: REFERRING PHYSICIAN: Dr. Lior Reinoso ORDERING PHYSICIAN: INDICATION FOR THE PROCEDURE: 1. Hypertension. 2. Shortness of breath. MEASUREMENTS DERIVED VALUES LV DIAMETER (LAX) NORMALS NORMALS Diastolic 4 (3.6-5.2) Eject. Fract. 60% (60%+/-6%) Systolic (2.3-3.9) Diastolic Vol. % Shortening (0.22-0.42) Systolic Vol. Aortic Root IVS THICKNESS Diastolic 1.2 (0.6-1.1) LVPW THICKNESS Diastolic 1.2 (0.6-1.1) LA DIAMETER Systolic 4.3 (2.1-3.7) FINDINGS: 1. Technical quality is good. 2. The left ventricle is normal in size with mild left ventricular hypertrophy noted diffusely. Systolic function appeared to be normal. Estimated ejection fraction 60%. 3. The left atrium is normal in size. No clot or thrombus were seen within the left atrium. 4. The right atrium and right ventricle are normal in size. No clot or thrombus were seen within the right side. 5. Mitral valve is normal in morphology with myxomatous degeneration of the mitral leaflet. Mild mitral regurgitation noted by color Doppler flow. No mitral valve prolapse. No mitral valve stenosis. 6. Aortic valve is trileaflet with normal opening with normal opening and closing pattern. No significant aortic valve stenosis was noted. Mild to moderate aortic regurgitation noted by color Doppler flow. 7. Tricuspid valve is normal in morphology with mild tricuspid regurgitation noted by color Doppler flow. Doppler across tricuspid valve estimated pulmonary artery pressure of 36+ right atrial pressure. 8. Pulmonic valve is functioning normally. 9. No pericardial effusion. IN CONCLUSION: 1. Mild to moderate left ventricular hypertrophy noted diffusely with normal systolic function. Estimated ejection fraction 60%. 2. Mildly dilated left atrium. 3. 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 4. Aortic valve sclerosis. No aortic stenosis, mild to moderate aortic regurgitation. 5. Pulmonary hypertension with estimated pulmonary artery pressure of 45 mmHg. Job ID: [id number] Dictated Date: 05/03/2016 15:47:10 Concrete Hopper Operator Date: 05/04/2016 07:59:05 / leo
[2016-05-04 08:45] VITALS: BP 111/62
[2016-05-04] MEDS: CLOPIDOGREL 75 MG (PLAVIX) TABLET PO SCH (08:45)
[2016-05-04] MEDS: LISINOPRIL 40 MG PO SCH (08:46)
[2016-05-04] MEDS: PHENYTOIN 100 MG (DILANTIN) CAP PO SCH (08:47)
[2016-05-04] MEDS ORDERED: ENOX100D4 SC (09:56)
--- NOTE | 2016-05-04 09:57 | Discharge Summary-Hospitalist ---
Diagnosis/Chief Complaint Date of Admission May 02, 2016 at 17:37 Date of Discharge Discharge Date: May 04, 2016 Admission Diagnosis 1.previous CVA as characterized by speech abnormality and swallowing difficulties. 2.questionable recent increase in symptomatology. 3.past history of myocardial infarction. 4.hypertension. 5.diabetes mellitus type II [id number]. 6.peripheral neuropathy Discharge Diagnosis 1.previous CVA as characterized by speech abnormality and swallowing difficulties. 2.questionable recent increase in symptomatology. 3.past history of myocardial infarction. 4.hypertension. 5.diabetes mellitus type II [id number]. 6.peripheral neuropathy Reason Hospital Visit/Course The patient's an 86-year-old white male who is brought to the emergency room last night by his family. From the patient and his family get a history going back Perhaps 2 months in which he had developed speech problems as well as some swallowing difficulty. There is some statement of mild right-sided weakness. They thought that this had gotten somewhat worse yesterday and had called their neurologist Dr. Tres banda Loraine who advised them to get to the nearest emergency room. The definition of acute phase here is difficult to extract Notes from 05/04/2016: Chart Review: Brain MRI late acute to subacute infarct left side. drip box tender: RN states that strength is improving bilaterally and pt is able to swallow. Pt has some difficulty speaking. Pt stable for DC to home if pt feels ready. Rehab will also accept pt. Pt's daughter will visit today. Patient Interview: Pt states that he is doing well today. Pt able to ambulate, drink, and eat without complications. Physical exam stable. Pt has minor pain. Pt reports normal BMs. no fever, vital signs stable, pleasant, slightly aphasic Regular rate and rhythm, clear to auscultation bilaterally Plan: In-patient rehab Scribed by Samuel Denton under the direct supervision of Dr. Mitchell. Hospital course: Patient had an uneventful hospital course it was felt that the stroke had affected his ability to speak and overall balance so he stabilized and was sent to inpatient rehabilitation for further management and recovery following stroke. Discharge Summary Discharge Physical Examination Allergies: Coded Allergies: No Known Drug Allergies (Unverified , 01/16/11) Vitals & I&Os Vital Signs Date Time Temp Pulse Resp B/P (MAP) Pulse Ox O2 Delivery O2 Flow Rate FiO2 05/04/16 10:49 05/04/16 09:00 Room Air 05/04/16 08:45 96.2 57 16 98 Hospital Course Labs (last 24 hrs) Laboratory Tests 05/03/16 16:17: Glucometer 180H 05/03/16 20:27: Glucometer 151H 05/04/16 06:43: Glucometer 142H 05/04/16 10:33: Glucometer 222H Pending Labs Laboratory Tests 05/04/16 06:43: Glucometer 142 05/04/16 10:33: Glucometer 222 Discharge Home Medications: Active Scripts Active Enoxaparin Sodium 100 Mg/1 Ml Syringe 100 Mg SC Q12H 30 Days Reported Vitamin B12 (Cyanocobalamin (Vitamin B-12)) 2,500 Mcg Tablet 1,250 Mcg PO DAILY TAKES 1/2 OF A (2,500 MCG) TABLET Glyburide 5 Mg Tablet 5 Mg PO BIDAC Clopidogrel (Clopidogrel Bisulfate) 75 Mg Tablet 75 Mg PO DAILY Aspirin 81 Mg Tab.chew 81 Mg PO HS Finasteride 5 Mg Tablet 5 Mg PO HS Simvastatin 40 Mg Tablet 20 Mg PO HS TAKES 1/2 OF A (40 MG) TABLET Fish Oil 1,200 mg Fish Oil (Fish Oil/Dha/Epa) 1 Each Capsule 2,400 Mg PO BID TAKES 2 (1,200 MG) CAPSULES Doxazosin Mesylate 8 Mg Tablet 4 Mg PO HS TAKES 1/2 OF A (8 MG) TABLET Donepezil HCl 10 Mg Tablet 10 Mg PO HS Lisinopril 40 Mg Tablet 40 Mg PO DAILY Phenytoin Sodium Extended 100 Mg Capsule 200 Mg PO BID TAKES 2 (100 MG) CAPSULES Instructions to patient/family Please see electonic discharge instructions given to patient. Clinical Quality Measures DVT/VTE Risk/Contraindication: Risk Factor Score Per Nursin RFS Level Per Nursing on Admit: 4+=Very High Stroke: Date of last known well: Apr 29, 2016 MARYAM MITCHELL DO May 04, 2016 09:57
== END 2016-05-04 09:56 ==
LOC: DELPENDDIS → EDUNIT# 16:11 → ER 16:14 → UNDOADMOB 17:37 → ICU 17:37 → 4TH 05-03 14:06 → ICU 05-03 14:06 → UNDODISOB 05-04 10:32
PROVIDERS: ADMIT Internal Medicine; ATTEND Internal Medicine
DX: I69.320 Aphasia following cerebral infarction (principal); I69.391 Dysphagia following cerebral infarction; I10 Essential (primary) hypertension; E11.9 Type 2 diabetes mellitus without complications; G62.9 Polyneuropathy, unspecified; I25.2 Old myocardial infarction; Z79.84 Long term (current) use of oral hypoglycemic drugs
CPT/HCPCS: 36415; 70450; 70553; 71010; 80053; 82962; 83735; 83874; 84443; 84484; 85025; 85610; 85730; 93005; 93041; 93306; 93880; 96372; G0378

== ENCOUNTER 2016-05-04 10:32 | Inpatient (IN) | payer MEDICARE ==
[~2016-05-04] VITALS: Ht 167.6 cm; Wt 93.2 kg
[~2016-05-04 10:32] MED LIST: ASPI-999 PO; CLOP75TA28 PO; CYAN250010 PO; CYAN25006 SL; DONE10TA41 PO; DOXA8TAB73 PO; ENOX100D4 SC; FINA5TAB6 PO; FISH1CAP15 PO; GLYB5TAB6 PO; LISI40TA PO; PHEN100C11 PO; SIMV40TA4 PO
[2016-05-04 12:00] VITALS: BP 100/62
--- NOTE | 2016-05-04 12:16 | Physical Therapy Evaluation ---
PT Evaluation-General Medical Diagnosis Admission Date May 04, 2016 at 10:32 Medical Diagnosis: CVA Onset Date: May 02, 2016 Therapy Diagnosis Therapy Diagnosis: weakness; abn gait Height/Weight Height (Feet): 5 Height (Inches): 7.00 Weight (Pounds): 207 Weight (Ounces): 14.4 Precautions Precautions/Isolations: Standard Precautions Referral Physician: Christiano Reason for Referral: Evaluation/Treatment Medical History Pertinent Medical History: CAD, DM, HTN, [place] Current History Pt admitted with stroke like symptoms; family reports this type of symptom ongoing since Mar with a gradual decline in function. Reviewed History: Yes Social History Home: Single Level Current Living Status: Alone Entry Into Home: Ramp Prior/Core FIM Prior Level of Function Functional [place] Measure 0=Not Assessed/NA 4=Minimal Assistance 1=Total Assistance 5=Supervision or Setup 2=Maximal Assistance 6=Modified [place] 3=Moderate Assistance 7=Complete [place] Bed Mobility: 7 Transfers (B,C,W/C) (FIM): 7 Gait: 6 (occas use of Quad cane, but not always) Pt reports he still drives and is a community ambulator. PT Evaluation-Current Subjective Agreeable to PT. Denies pain. Pain Numeric Pain Scale: 0-No Pain Location: No Pain Reported Objective Patient Orientation: Person, Place, Time, Situation Problem Solving: Fair ROM/Strength ROM Lower Extremities WFL Strenght Lower Extremities grossly 4/5 throughout Integumentary/Posture Integumentary Intact Bowel Incontinence: No Bladder Incontinence: No Posture normal and symmetrical Neuromuscular (Tone, Coordination, Reflexes) Slight diminished coordination right LE with turning and during gait activities. No noted increased or decreased tone and reflexes intact Sensory Vision: Wears Glasses Hearing: Functional Hand Dominance: Right Sensation Right Lower Extremit: Intact Sensation Left Lower Extremity: Intact Transfers Functional [place] Measure 0=Not Assessed/NA 4=Minimal Assistance 1=Total Assistance 5=Supervision or Setup 2=Maximal Assistance 6=Modified [place] 3=Moderate Assistance 7=Complete IndependenceIRFPAI Quality Coding Scale 6 Independent with activity with or without an assistive device 5 Patient requires set up or clean up by helper. Patient completes activity by themselves 4 Supervision or touching assist (CGA). [place] provide cues , steadying assist 3 The helper provides less than half the effort to complete the activity 2 The helper provides more than half the effort to complete the activity 1 Dependent. The helper does all the effort to complete an activity 7 Patient refused to complete or attempt activity 9 The patient did not perform the activity before the current illness or injury 88 Not attempted due to Medical conditions or safety concerns Transfers (B, C, W/C) (FIM): 4 Roll Left to Right (QC): 5 Supine to/from Sit: 4 (assist to sit up in bed to transfer to EOB) Sit to/from Stand: 4 (CGA for safety. ) Sit to Lying (QC): 5 Lying to Sitting/Side of Bed(Q: 4 Sit to Stand (QC): 4 Chair/Dbr-sy-Xgmaj Xfer(QC): 4 Car Transfer (QC): 4 Requires heavy cueing for hand placement with sit to/from stand, want to reach for or leave hands on the walker. Gait Does the Patient Walk?: Yes Mode of Locomotion: Walk Anticipated Mode of Locomotion: Walk Gait (FIM): 4 Distance (FIM): 3=150 ft Walk 10 feet (QC): 4 Walk 50 ft with 2 Turns(QC): 4 Walk 150 ft (QC): 4 Walking 10ft/uneven surface-QC: 4 Gait Assistive Device: FWW Comments/Gait Description Skilled cues for safety with turning and CGA for safety. Pt tends to run into objects on his right and had trouble squaring up to uneven surface with acknowledging the right edge. Cues and min assist to correct. Wheelchair Training Does the Pt Use a Wheelchair?: No Stairs Stairs (FIM): 1 #of Steps: 1 Level of Assist: 4 (CGA for safety and verbal cues to sequence. ) 1 Step (curb) (QC): 4 4 Steps (QC): 88 Assistive Device: Walker 12 Steps (QC): 88 Balance Sitting Static: Good Sitting Dynamic: Good Standing Static: Fair Standing Dynamic: Fair Picking up an Object (QC): 4 Treatment Gait training with turns and varied surfaces to focus on attention to the right. Also worked on sit to from stand anc correct hand placement. Assessment/Needs Post CVA with deficits with gait and safety and noted right neglect with ambulation and management of FWW safely. He has some difficulty with sequencing for sit to from stand transfers needing heavy cuing to complete correctly. slight balance deficits noted as well. Pt is an excellent candidate for skilled PT intervention to work on functional strength and mobility to allow him to return home alone. Co morbidities include TIA like symptoms x 2 months, IA, HTN, DM. Systems affected include gait, balance, transfers, safety awareness and feel his presentation is unstable as the expressive aphasia seems more enhances as well as the right neglect. High complexity evaluation. Rehab Potential: Good PT Short Term Goals Short Term Goals Time Frame: May 11, 2016 Transfers (B,C,W/C) (FIM): 5 Gait (FIM): 5 Distance (FIM): 3=150 ft Stairs (FIM): 4 PT Custodial Goals Custodial Goals PT Custodial Goals Time Frame: May 25, 2016 Transfers (B,C,W/C) (FIM): 7 Sit to Lying (QC): 6 Lying-Sitting on Side/Bed(QC): 6 Sit to Stand (QC): 6 Roll Left to Right (QC): 6 Chair/Zor-tw-Vjnkj Xfer(QC): 6 Car Transfer (QC): 6 Does the Patient Walk: Yes Gait (FIM): 6 Gait distance (FIM): 3=150 ft Walk 10 feet (QC): 6 Walk 10ft-Uneven Surface(QC): 6 Walk 50ft with 2 Turns (QC): 6 Walk 150 ft (QC): 6 Gait Assistive Device: FWW Does the Pt use WC or Scooter?: No Stairs (FIM): 6 # of Steps: 12 1 Step (curb) (QC): 6 4 Steps (QC): 6 12 Steps (QC): 6 Picking up an Object (QC): 6 PT Plan Problem List Problem List: Activity Tolerance, Functional Strength, Safety, Balance, Gait, Transfer, Bed Mobility Treatment/Plan Treatment Plan: Continue Plan of Care Treatment Plan: Bed Mobility, Education, Functional Activity Gamaliel, Functional Strength, Group Therapy, Gait, Safety, Therapeutic Exercise, Transfers Treatment Duration: May 25, 2016 # of days/week 5-6 Visits Per Week: 10-15 Minutes/Day (M-F): 60-90 Minutes/Day (Sat/Fierro): prn Pt/Family Agrees w/Plan: Yes Safety Risks/Education Patient Education: Transfer Techniques, Safety Issues Teaching Recipient: Patient Teaching Methods: Demonstration, Discussion Response to Teaching: Reinforcement Needed Discharge Recommendations Therapy D/C Recommendations: Physical Therapy Home Care Time/GCodes Time In: 1020 Time Out: 1100 Total Billed Treatment Time: 40 Total Billed Treatment visit EVH 15 GT 15 FA 10 MERNA HUMPHRIES PT May 04, 2016 12:16
--- NOTE | 2016-05-04 13:08 | Occupational Therapy Eval ---
OT Evaluation-General/PLF Medical Diagnosis Admission Date May 04, 2016 at 10:32 Medical Diagnosis: CVA Onset Date: May 02, 2016 Therapy Diagnosis Therapy Diagnosis: Right sided weakness, Decreased ADL skills Height/Weight Height (Feet): 5 Height (Inches): 6.00 Weight (Pounds): 206 Weight (Ounces): 0.8 Precautions Precautions/Isolations: Standard Precautions Weight Bear Status Weight Bearing Restriction: Weight Bearing/Tolerated Referral Physician: Christiano Referral Reason: Activity Tolerance, Self Care, Evaluation/Treatment, Strengthening/ROM Medical History Pertinent Medical History: CAD, DM, HTN, [place] Current History Daughter states at yesterday's session, that pt. was having symptoms for the last three weeks. He began having increased weakness. Daughter was able to talk him into going to hospital. Reviewed History: Yes Social History Home: Single Level Current Living Status: Alone Entry Into Home: Ramp ADL-Prior Level of Function ADL PLOF Comments Previous to three weeks ago, pt. was independent with daily tasks. 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 is non verbal. He attempts to speak, but is unable to get words out. OT provides paper and pen, but pt. is unable to legibly write. Is able to nod yes and no. Appearance Pt. is up in chair. Is able to indicate that he has already bathed and dressed on acute. Pt. does however agree to work with OT. Mental Status/Objective Patient Orientation: Person Please defer speech to speech pathologist. Current Hand Dominance: Right Upper Extremity ROM Pt. is today able to demonstrate bilateral ROM functionally within all planes. Upper Extremity Coordination Pt. demonstrates impaired coordination in right UE. With further testing, pt. had difficulty tying his shoes. Also noted that when he was completing a beading activity, he would switch hands so that his left was his dominant, even with cues to stay with the right. Pt. is able to grasp objects, but noted that he does not complete full hand closure, and requires cues to perform this. Upper Extremity Strength Left UE- 4/5 distally Right UE- 3/5 distally Edema: no edema noted. ADL-Treatment Functional [place] Measure 0=Not Assessed/NA 4=Minimal Assistance 1=Total Assistance 5=Supervision or Setup 2=Maximal Assistance 6=Modified [place] 3=Moderate Assistance 7=Complete IndependenceIRFPAI Quality Coding Scale 6 Independent with activity with or without an assistive device 5 Patient requires set up or clean up by helper. Patient completes activity by themselves 4 Supervision or touching assist (CGA). [place] provide cues , steadying assist 3 The helper provides less than half the effort to complete the activity 2 The helper provides more than half the effort to complete the activity 1 Dependent. The helper does all the effort to complete an activity 7 Patient refused to complete or attempt activity 9 The patient did not perform the activity before the current illness or injury 88 Not attempted due to Medical conditions or safety concerns Lower Body Dressing (FIM): 4 (Pt. is able to doff/don socks, and doff/don shoes. However, requires cues to tie shoes.) On/Off Footwear (QC): 4 Transfers (B, C, W/C) (FIM): 4 (CGA with transfers. Able to stand and ambulate with CGA. Requires cues due to inattention on right side.) Noted during transfers that pt. demonstrates right sided neglect. OT completed crude testing for visual kaur. Note that pt. seems to be unable to see anything in upper quadrant kaur. Is able to see items at mid range and below. Other Treatments Pt. ambulated to therapy gym with CGA. Completed 5 minutes on armbike. Tested blood pressure. 95/59. Waited a minute and took it again. 100/62. Waited another minute and then taken again. 102/63. Pt. completed another 5 minutes on armbike at mod resistance. Tolerated well. Indicates that he is not dizzy. Blood pressure again is 98/63. Ambulated back to room. All needs met. Nursing notified of pt's blood pressure. Education OT Patient Education: Correct positioning, Exercise program, Modified ADL techniques, Progress toward Goal/Update tx plan, Purpose of tx/functional activities, Reviewed precautions, Rehab process, Transfer techniques Teaching Recipient: Patient Teaching Methods: Demonstration, Discussion Response to Teaching: Verbalize Understanding, Return Demonstration OT Short Term Goals Short Term Goals Time Frame: May 11, 2016 Eating(FIM): 5 Grooming(FIM): 5 Bathing(FIM): 4 Upper Body Dressing(FIM): 5 Lower Body Dressing(FIM): 5 Toileting(FIM): 5 Transfers (B,C,W/C) (FIM): 5 Toilet/Commode Transfer(FIM): 5 Shower Transfer(FIM): 4 Additional Short Term Goals: 1-Demonstrate ADL Tasks, 2-Verbalize Understanding , 3-ImproveStrength/Gamaliel 1=Demonstrate adherence to instructed precautions during ADL tasks. 2=Patient will verbalize/demonstrate understanding of assistive devices/ modifications for ADL. 3=Patient will improve strength/tolerance for activity to enable patient to perform ADL's. OT Pattern Fitter Goals Pattern Fitter Goals Time Frame: May 18, 2016 Eating (FIM): 6 Eating (QC): 6 Groomin Oral Hygiene (QC): 6 Bathing(FIM): 5 Shower/Bathe Self (QC): 5 Upper Body Dressing(FIM): 6 Upper Body Dressing (QC): 6 Lower Body Dressing(FIM): 6 Lower Body Dressing (QC): 6 On/Off Footwear (QC): 6 Toileting(FIM): 6 Toileting Hygiene (QC): 6 Transfers (B,C,W/C) (FIM): 6 Toilet/Commode Transfer(FIM): 6 Toilet/Commode Transfer (QC): 6 Shower Transfer(FIM): 5 Additional Goals: 1-Demonstrate ADL Tasks, 2-Verbalize Understanding, 3- ImproveStrength/Gam[place]iel 1=Demonstrate adherence to instructed precautions during ADL tasks. 2=Patient will verbalize/demonstrate understanding of assistive devices/ modifications for ADL. 3=Patient will improve strength/tolerance for activity to enable patient to perform ADL's. OT Education/Plan Problem List/Assessment Assessment: Decreased Activ Tolerance, Decreased UE Strength, Dependent Transfers, Impaired Bed Mobility, Impaired Coordination, Impaired Funct Balance , Impaired I ADL's, Impaired Self-Care Skills, Visual-Perceptual Deficit Discharge Recommendations Plan/Recommendations: Continue POC Therapy D/C Recommendations: Home w/ Family Support, Occupational Therapy Home Care, Scheduled Assistance Comment Unsure at this time of exact equipment needs. Pt. unable to fully state what equipment he has at home. Target Placement Home with daughter support. Patient/Family Goals On acute, daughter told this therapist that pt. adamently does not want to go to a [facility]. Treatment Plan/Plan of Care Treatment,Training & Education: Yes Patient would benefit from OT for education, treatment and training to promote independence in ADL's, mobility, safety and/or upper extremity function for ADL' s. Plan of Care: ADL Retraining, Functional Mobility, UE Funct Exercise/Act Treatment Duration: May 18, 2016 # of days/week 5-6 Visits Per Week: 10-12 Minutes/Day (M-F): 60-90 Minutes/Day (Sat/Fierro): PRN Agreement: Yes Rehab Potential: Good Time/GCodes Start Time: 11:00 Stop Time: 11:50 Total Time Billed (hr/min): 50 Billed Treatment Time 1, EVmod complexity x 15minutes, FA x 35minutes TREY MICHELLE OT May 04, 2016 13:08
--- NOTE | 2016-05-04 14:53 | Therapy Group Daily Note ---
Therapy Daily Group Note Patient Education Topic Home Safety Exercises LE Seated Exercise, UE Exercise Other/Notes Pt was an active participant in OT group but did seem sleepy at times. He was unable to verbally introduce himself to the group but could nod yes and no when questioned - he indicated that he likes to be outside in the springtime. He attended to group education/discussion on home safety and fall prevention but was not able to verbally offer comments. He did seated exercises but needed occasion additional physical or verbal assistance. At the end of the group, he was not able to verbalize the springtime activities of the other group members but nodded agreement. He walked back to his room with assistance, FWW and was left seated in recliner, chair alarm on, all needs met. Start Time: 13:00 Stop Time: 14:10 Total Billed Treatment Time: 70 Total Billed Treatment visit, 70 minutes group DARELL GALVEZ OT May 04, 2016 14:53
--- NOTE | 2016-05-04 15:13 | ST Cognitive Linguistic Eval ---
Speech Evaluation-General Medical Diagnosis CVA Onset Date: May 02, 2016 Therapy Diagnosis Therapy Diagnosis: Severe Expressive Aphasia, Moderate Receptive Aphasia Precautions Precautions/Isolations: Standard Precautions Referral Referring Physician: Dr. Rafi Alvarado Reason for Referral: Evaluation/Treatment Cognitive, Speech, Language Evaluation Medical History Pertinent Medical History: CAD, DM, HTN, [place] Reviewed History: Yes Social History Current Living Status: Alone Speech PLF-Current Status Prior Level of Function The patient was unable to provide information regarding prior level of function due to severe expressive aphasia. Subjective The patient was recently admitted to [facility] following a CVA with residual weakness and expressive aphasia. The patient made eye contact with clinician upon entrance into the room. The patient agreed ( nonverbally with head nod) to participate in the cognitive, speech, and language evaluation on this date. Language Eval: Auditory Comprehends Simple Yes/No Ques: Moderate (Inconsistent: The patient demonstrated inconsistent, inaccurate responses to simple and complex yes/no questions.) Indent/Objects Multiple Lauren: Moderate (The patient was able to inconsistently name single, common objects.) Ident/Pics in Multiple Lauren: Moderate (The patient was able to identify pictures by function, however, not by name.) Follows 1-Step Commands: Severe (The patient was able to intermittently following single, one-step commands, however, frequent repetition and direct modeling was necessary.) Follows Complex Directions: Severe Follows General Conversations: Moderate Language Eval: Verbal Language Completes Spontaneous Greeting: Moderate Produces Auto, Serial Info: Severe Imitates Simple Words/Phrases: Severe (The patient was able to intermittently repeat single words following several attempts. The patient was unable to repeat short phrases.) Requests Basic Needs: Severe States Basic Personal Info: Severe Expresses Complex Ideas: Severe Language Evaluation: Reading Comprehends Single Nouns: Severe Follows Simple Written Direct: Severe The patient was unable to follow written directions, read single words, or identify specific single words in a field of three. Language Evaluation: Writing Writes to Simple Dictation: Severe Writes Personal Information: Severe (The patient was unable to write personal information (request presented verbally and in writing).) Cognitive Patient Orientation Patient orientation is unknown due to severe expressive and moderate receptive aphasia. The patient stated his first name once, however, was unable to repeat his name at the close of the session or provide additional orientation information. Objective Cognitive Domain Unable to receive accurate cognitive information/results due to severe expressive and moderate receptive aphasia. Objective Oral Motor/Speech Production A right labial droop is noted, as well as, right labial weakness. Imprecise articulation was noted throughout patient's attempts to repeat clinician's prompts. Impression The patient demonstrates severe expressive aphasia and moderate receptive aphasia. Communication/Social Cognition Comprehension: 2 Expression: 1 Social Interaction: 2 Speech Patient Assess Expression of Ideas/Wants: Rarely/Never (1) Understanding [place] Content: Rarely/Never Understand (1) Brief Interview-Mental Status: No(pt is rarely/never understood) Memory/Recall Ability: None of the above were recalled Speech Short Term Goals Short Term Goals Short Term Goals 1. The patient will state names of five common objects and five common pictures with 90% accuracy and mild clinician cueing. 2. The patient will repeat single words and short phrases with 90% accuracy with moderate clinician verbal cueing. 3. The patient will demonstrated 90% accuracy with simple yes/no questions. 4. The patient will display 90% accuracy with simple, one-step commands. Time Frame-STG: Three Weeks Speech Fdc Goals Mold Carrier Goals 1. The patient will demonstrate improved receptive and expressive communication skills for increased safety and function with ADL's. Time Frame: Two Months Comprehension: 3 Expression: 3 Social Interaction: 4 Speech-Plan Treatment Plan Speech Therapy Treatment Plan: Continue Plan of Care Continue skilled speech therapy to target receptive and expressive communication. Treatment Duration: June 29, 2016 # of days/week Five. Visits Per Week: Five. Minutes/Day (M-F): 30 to 60 Rehab Potential: Guarded Safety Risks/Education Teaching Recipient: Patient, Family Teaching Methods: Discussion Response to Teaching: Verbalize Understanding, Reinforcement Needed Education Topics Provided: Results, Recommendations Time Speech Therapy Time In: 14:10 Speech Therapy Time Out: 14:40 Total Billed Time: 30 Billed Treatment Time 1, GALINDOANAYA AUBREY MCMILLAN May 04, 2016 15:13
[2016-05-04 17:00] VITALS: BP 118/66
[2016-05-04] MEDS: ENOXAPARIN 100 MG/1 ML (LOVENOX) SYR SC SCH (17:11)
[2016-05-04] MEDS: glyBURIDE 5 MG (MICRONASE) TAB PO SCH (17:11)
[2016-05-04] MEDS: OMEGA 3 (FISH OIL) 1000 MG CAP PO SCH (17:11)
[2016-05-04] MEDS: FINASTERIDE (PROSCAR) 5 MG TAB PO SCH (20:57)
[2016-05-04] MEDS: PHENYTOIN 100 MG (DILANTIN) CAP PO SCH (20:57)
[2016-05-04] MEDS: SIMvastatin 20 MG (ZOCOR) TAB PO SCH (20:57)
[2016-05-04] MEDS: DONEPEZIL 10 MG (ARICEPT) TAB PO SCH (20:57)
[2016-05-04] MEDS: doxAzosin 4 MG (CARDURA) TAB PO SCH (20:59)
[2016-05-05] MEDS: ENOXAPARIN 100 MG/1 ML (LOVENOX) SYR SC SCH (05:33)
[2016-05-05 05:39] VITALS: BP 136/70
[2016-05-05] MEDS: glyBURIDE 5 MG (MICRONASE) TAB PO SCH ×2 (06:45→16:16)
[2016-05-05] MEDS: OMEGA 3 (FISH OIL) 1000 MG CAP PO SCH ×2 (06:45→16:15)
[2016-05-05] MEDS: lisINopril 20 MG (ZESTRIL) TAB PO SCH (08:00)
[2016-05-05] MEDS: CLOPIDOGREL 75 MG (PLAVIX) TABLET PO SCH (08:01)
[2016-05-05] MEDS: CYANOCOBALAMIN 500 MCG TAB (VITAMIN B-12) PO SCH (08:01)
[2016-05-05] MEDS: ASPIRIN 81 MG CHEW (CHILDREN'S ASA) PO SCH (08:02)
[2016-05-05] MEDS: PHENYTOIN 100 MG (DILANTIN) CAP PO SCH ×2 (08:27→20:22)
--- NOTE | 2016-05-05 09:00 | Physical Therapy Daily Note ---
PT Daily Note-Current Subjective Pt sitting in recliner upon arrival. Pt agrees to PT by nodding due to unable to verbalize. Pain Location: No Pain Reported Mental Status Patient Orientation: Person, Place, Time, Situation Pt has some cognitive awareness problems and when FWW is in front of pt, pt will stand without staff. Transfers Functional [place] Measure 0=Not Assessed/NA 4=Minimal Assistance 1=Total Assistance 5=Supervision or Setup 2=Maximal Assistance 6=Modified [place] 3=Moderate Assistance 7=Complete IndependenceIRFPAI Quality Coding Scale 6 Independent with activity with or without an assistive device 5 Patient requires set up or clean up by helper. Patient completes activity by themselves 4 Supervision or touching assist (CGA). [place] provide cues , steadying assist 3 The helper provides less than half the effort to complete the activity 2 The helper provides more than half the effort to complete the activity 1 Dependent. The helper does all the effort to complete an activity 7 Patient refused to complete or attempt activity 9 The patient did not perform the activity before the current illness or injury 88 Not attempted due to Medical conditions or safety concerns Scootin Sit to/from Stand: 5 Sit to Stand (QC): 5 Weight Bearing Weight Bearing Restriction: Full Weight Bearing Location Restriction: LE Bilateral Gait Training Does the Patient Walk?: Yes Gait (FIM): 4 Distance (FIM): 3=150 ft Distance: 150' Walk 10 feet (QC): 4 Walk 50 ft with 2 Turns(QC): 4 Walk 150 ft (QC): 4 Gait Level of Assist: 4 Gait Persons Needed: 1 Gait Assistive Device: FWW Pt leans to the R side when ambulating and demonstrates some R neglect especially with turning toward R. Pt has slow [place] and has moments of unsteadiness but no LOB. Wheelchair Training Does the Pt Use a Wheelchair?: No Exercises Seated Therapy Exercises: Ankle pumps, Long arc quads, Hip flexion, Kicking activity Seated Reps: 20 NuStep Minutes: 10 NuStep Workload: 5 Treatments Pt transfers using FWW at close SBA for safety and balance upon standing. Pt ambulates using FWW at Min A-CGA for safety due to balance while ambulating. Pt uses NuStep and completes Seated Ex in chair to increase strength, activity tolerance and balance/coordination. Assessment Current Status: Fair Progress Pt needs VC for hand placement with transfers. Pt also tries to stand independently if FWW is in front of him. Pt has deficit in cognitive awareness. PT Short Term Goals Short Term Goals Time Frame: May 11, 2016 Transfers (B,C,W/C) (FIM): 5 Gait (FIM): 5 Distance (FIM): 3=150 ft Stairs (FIM): 4 PT Long-Term Goals Long-Term Goals PT Long-Term Goals Time Frame: May 25, 2016 Transfers (B,C,W/C) (FIM): 7 Sit to Lying (QC): 6 Lying-Sitting on Side/Bed(QC): 6 Sit to Stand (QC): 6 Roll Left to Right (QC): 6 Chair/Cal-fk-Wmppx Xfer(QC): 6 Car Transfer (QC): 6 Does the Patient Walk: Yes Gait (FIM): 6 Gait distance (FIM): 3=150 ft Walk 10 feet (QC): 6 Walk 10ft-Uneven Surface(QC): 6 Walk 50ft with 2 Turns (QC): 6 Walk 150 ft (QC): 6 Gait Assistive Device: FWW Does the Pt use WC or Scooter?: No Stairs (FIM): 6 # of Steps: 12 1 Step (curb) (QC): 6 4 Steps (QC): 6 12 Steps (QC): 6 Picking up an Object (QC): 6 PT Plan Problem List Problem List: Activity Tolerance, Functional Strength, Safety, Balance, Gait, Transfer Treatment/Plan Treatment Plan: Continue Plan of Care Treatment Plan: Bed Mobility, Education, Functional Activity Gamaliel, Functional Strength, Group Therapy, Gait, Safety, Therapeutic Exercise, Transfers Treatment Duration: May 25, 2016 Visits Per Week: 10-15 Minutes/Day (M-F): 60-90 Minutes/Day (Sat/Fierro): prn Safety Risks/Education Patient Education: Gait Training, Transfer Techniques, Correct Positioning, Safety Issues Teaching Recipient: Patient Teaching Methods: Discussion Response to Teaching: Reinforcement Needed Time/GCodes Time In: 800 Time Out: 845 Total Billed Treatment Time: 45 Total Billed Treatment visit, EX X2 (25m) & GT (20m) SAKSHI PRESSLEY PTA May 05, 2016 09:00
--- NOTE | 2016-05-05 09:45 | HISTORY AND PHYSICAL ---
DATE OF ADMISSION: 05/04/2016 CHIEF COMPLAINT: Difficulty with walking. HISTORY OF PRESENT ILLNESS: The patient is an 86 year-old male who was admitted via the ED to [facility] on 05/12 to the hospitalist service due to right-sided weakness, swallowing and speech difficulty. The patient had an MRI revealing an acute WA. He has a history of prior stroke with similar symptomatology and family has seen Dr. Joshua, neurologist, in the past. The patient was continued on home medications, Accu-Cheks monitored, and blood pressure control. The patient was started on therapy and found to be appropriate for inpatient rehabilitation. The patient referred here this date. PAST MEDICAL HISTORY: 1. Prior stroke. 2. WA. 3. Hypertension. 4. Coronary artery disease. 5. Type 2 diabetes mellitus. 6. Diabetic peripheral neuropathy. PAST SURGICAL HISTORY: Noncontributory. ALLERGIES: No known medication allergies. FAMILY HISTORY: Noncontributory. SOCIAL HISTORY: She lives alone in single level house with ramps. He lives in [place], [place]. REVIEW OF SYSTEMS: Ten-point review of systems significant for right-sided weakness, aphasia, cognitive impairment, difficulty with speech and memory. MEDICATIONS: 1. Lisinopril 40 mg p.o. daily. 2. Vitamin B12 1200 mcg p.o. daily. 3. Plavix 75 mg p.o. daily. 4. ASA 81 mg p.o. daily. 5. Simvastatin 20 mg p.o. at bedtime. 6. Phenytoin 200 mg p.o. q.12 h. 7. Cardura 4 mg p.o. at bedtime. 8. Finasteride 5 mg p.o. at bedtime. 9. Aricept 10 mg p.o. at bedtime. 10. Lovenox 100 mg subcutaneous q.12 hours. 11. Fish oil 2000 mg p.o. b.i.d. with meals. 12. Glyburide 5 mg p.o. b.i.d. before meals. PHYSICAL EXAMINATION: Significant for a male appearing his stated age, alert, and oriented in no acute distress. BMI 32.3 kg, per meter square. VITAL SIGNS: He is afebrile. Pulse 62, respirations 18, blood pressure 162, O2 sat 95% on room air. HEENT: He has some word finding difficulty, mild aphasia. Hearing and vision grossly intact. No oral lesion is noted. NECK: Supple without mass. HEART: Regular rhythm. LUNGS: Clear. ABDOMEN: Soft, nontender. Bowel sounds present. EXTREMITIES: No lower leg edema. No calf tenderness. MUSCULOSKELETAL: The patient has functional active range of motion of all 4 extremities. NEUROLOGIC: He has a mild right hemiparesis, mostly in the upper limb 3/5, right distally 4/5, left upper limb strength 4/5 of both lower extremities. He is reported to be continent of bowel and bladder. He has slightly diminished coordination on the right side. Sensation is grossly intact to touch. Cognition mildly impaired IMPRESSION: 1. Ambulatory dysfunction secondary to acute left-sided infarct with mild right hemiparesis and aphasia. 2. Hypertension, controlled with medication. 3. Diabetes type, controlled with medication. 4. History of prior stroke 5. Diabetic peripheral neuropathy. PLAN: The patient will have comprehensive program of inpatient rehabilitation with goal of maximizing level of functional independence prior to discharge home. The patient will have PT/OT 90 minutes per day, each discipline 5 days week for gait strengthening, conditioning, balance, ADLs, any patient family care and training necessary, any adaptive equipment and training necessary. Speech therapy to treat speech and cognitive impairments 3 to 5 times a week, 30 to 45 minutes per session for 2 to 3 weeks. Rehabilitation nursing to assist with bowel, bladder, and skin care. Rehabilitation nursing to assist with bowel, bladder, skin care, medication administration, pain management, reorientation as needed. grain farmworker to assist with discharge planning, community reentry. Follow-up with hospitalist service Dr. Weinberg for medical issues. Routine admission labs monitor Accu-Cheks, adjust medications as needed. ESTIMATED LENGTH OF STAY: 2 to 3 weeks. PROGNOSIS: Rehab prognosis appears good for goal of discharging home with family, modified independent to supervision for ADLs and mobility skills. DIET: Carb consistent. CODE STATUS: Full code. POST ADMISSION PHYSICIAN ASSESSMENT: The preadmission screen agrees with the post admission assessment that the patient is a good candidate for inpatient rehabilitation. He appears to be well motivated to participate in 3 hours of therapy a day. He should be able tolerate 3 hours therapy a day from a medical standpoint. He should benefit from the 3 hours of therapy a day. He has a reasonable discharge plan, reasonable discharge rehabilitation goals and a supportive family. He has various comorbidities that need to be closely monitored with medications and treatments adjusted on daily basis as needed. These include his hypertension and diabetes mellitus. BARRIERS TO DISCHARGE: Barriers to discharge for this patient who had been modified independent prior to this are for him to be modified independent to supervision for ADLs and mobility skills, with improved speech communication skills, cognitive skills, prior to discharge home so as to lessen the burden of the caregivers. RISKS FOR THIS PATIENT: Include: 1. Recurrent stroke. 2. Poorly controlled diabetes. 3. Poorly controlled hypertension. 4. DVT. 5. Pulmonary embolism. 6. Urinary retention. 7. UTI. 8. Respiratory infection. 9. Aspiration. 10. We will utilize SCDs for DVT prophylaxis. Job ID: [id number] Dictated Date: 05/04/2016 16:42:21 House Supervisor Date: 05/05/2016 09:06:44/leo
--- NOTE | 2016-05-05 10:01 | Speech Therapy Daily Note ---
Speech Daily Progress Note Subjective The patient was seated upright in recliner upon entrance. The patient greeted the clinician and was agreeable to participate in speech and language therapy on this date. To note, the patient appears more alert for his treatment session , replying to clinician's questions more promptly. Objective Orientation: The patient and clinician discussed the in-room white board for orientation aid on this date. The patient continues to state the date is (his date of ) regardless of maximum clinician cueing. With the use of the white board (external aid), the patient was able to intermittently ( increased accuracy) state the month, date, year, and day of week with verbal prompting and direct modeling by the clinician. Repetition: The patient was able to consistently repeat single words and short phrases with 100% accuracy on this date. The patient continues to demonstrate moderate dysarthria and right labial weakness, reduced coordination. Yes/No: Increased accuracy was demonstrated with yes/no questions (simple) on this date, however, moderate clinician verbal prompting was required (70% accuracy). Phrase Completion: The patient demonstrated 83% accuracy with simple phrase completion. Picture Naming: The patient demonstrated 65% accuracy with picture naming with mild clinician verbal cueing. * The patient demonstrated increased accuracy with receptive and expressive communication on this date. Assessment Assessment Current Status: Good Progress Treatment Plan Continue Plan of Care Communication Comprehension: 3 Expression: 2 Social Cognition Social Interaction: 2 Problem Solvin Memory: 3 Speech Short Term Goals Short Term Goals Short Term Goals 1. The patient will state names of five common objects and five common pictures with 90% accuracy and mild clinician cueing. 2. The patient will repeat single words and short phrases with 90% accuracy with moderate clinician verbal cueing. 3. The patient will demonstrated 90% accuracy with simple yes/no questions. 4. The patient will display 90% accuracy with simple, one-step commands. Time Frame-STG: Three Weeks Speech Long-Term Goals Long-Term Goals 1. The patient will demonstrate improved receptive and expressive communication skills for increased safety and function with ADL's. Time Frame: Two Months Comprehension: 3 Expression: 3 Social Interaction: 4 Speech-Plan Treatment Plan Speech Therapy Treatment Plan: Continue Plan of Care Continue skilled speech therapy to target expressive and receptive communication. Treatment Duration: June 29, 2016 # of days/week Five. Visits Per Week: Five. Minutes/Day (M-F): 30 to 60 Rehab Potential: Guarded Safety Risks/Education Teaching Recipient: Patient Teaching Methods: Demonstration, Discussion Response to Teaching: Verbalize Understanding, Return Demonstration, Reinforcement Needed Education Topics Provided: Orientation Strategies Time Speech Therapy Time In: 08:45 Speech Therapy Time Out: 09:15 Total Billed Time: 30 Billed Treatment Time 1, AUBREY GALLEGOS May 05, 2016 10:01
--- NOTE | 2016-05-05 11:01 | Occupational Ther Daily Note ---
OT Current Status-Daily Note Subjective Pt. attempts multiple times to verbalize, but has great difficulty. Is able to nod yes and no. No pain reported this morning. Appearance Pt. is up in chair. Agrees to shower. Mental Status/Objective Patient Orientation: Person Functional [place] Measure 0=Not Assessed/NA 4=Minimal Assistance 1=Total Assistance 5=Supervision or Setup 2=Maximal Assistance 6=Modified [place] 3=Moderate Assistance 7=Complete [place] ADL-Treatment Functional [place] Measure 0=Not Assessed/NA 4=Minimal Assistance 1=Total Assistance 5=Supervision or Setup 2=Maximal Assistance 6=Modified [place] 3=Moderate Assistance 7=Complete IndependenceIRFPAI Quality Coding Scale 6 Independent with activity with or without an assistive device 5 Patient requires set up or clean up by helper. Patient completes activity by themselves 4 Supervision or touching assist (CGA). [place] provide cues , steadying assist 3 The helper provides less than half the effort to complete the activity 2 The helper provides more than half the effort to complete the activity 1 Dependent. The helper does all the effort to complete an activity 7 Patient refused to complete or attempt activity 9 The patient did not perform the activity before the current illness or injury 88 Not attempted due to Medical conditions or safety concerns Grooming (FIM): 5 (set up to brush hair only. Pt. did indicate that he wanted to shave. Pt. has a razor in room, but no shave cream. Left note for family.) Bathing (FIM): 4 (Pt. needs constant CGA in stance during shower. Requires cues as well for safety.) Upper Body (FIM): 3 (Pt. has difficulty manipulating shirt over his head. Requires assistance for this.) Lower Body Dressing (FIM): 3 (Pt. is able to don underwear and pants with CGA, but requires assistance to don socks, and then assist to tie shoes.) Transfers (B, C, W/C) (FIM): 4 (Pt. requires min assist at times with hand placement on walker with right hand, especially when he fatigues.) Shower Transfer(FIM): 4 Other Treatment After shower, pt. ambulated to therapy gym. Tolerated armbike x 15 minutes at mod resistance. Worked on bilateral coordination on armbike for increased ability to don shirt, and other coordination with tasks. Pt. required several brief rest breaks, but unable to identify with therapist that he was tired. Pt. given nut/bolt activity. Pt. was asked to undo the bolts, and put them back on. Pt. able to undo them, but this was difficult for him. Pt. attempted to put them back together, but unable to do. Became discouraged. Pt. is encouraged to keep trying, as he needs to work on coordination. Ambulated back to room. All needs met. Education OT Patient Education: Correct positioning, Exercise program, Modified ADL techniques, Progress toward Goal/Update tx plan, Purpose of tx/functional activities, Reviewed precautions, Rehab process, Transfer techniques Teaching Recipient: Patient Teaching Methods: Demonstration, Discussion Response to Teaching: Verbalize Understanding, Return Demonstration OT Short Term Goals Short Term Goals Time Frame: May 11, 2016 Eating(FIM): 5 Grooming(FIM): 5 Bathing(FIM): 4 Upper Body Dressing(FIM): 5 Lower Body Dressing(FIM): 5 Toileting(FIM): 5 Transfers (B,C,W/C) (FIM): 5 Toilet/Commode Transfer(FIM): 5 Shower Transfer(FIM): 4 Additional Short Term Goals: 1-Demonstrate ADL Tasks, 2-Verbalize Understanding , 3-ImproveStrength/Gamaliel 1=Demonstrate adherence to instructed precautions during ADL tasks. 2=Patient will verbalize/demonstrate understanding of assistive devices/ modifications for ADL. 3=Patient will improve strength/tolerance for activity to enable patient to perform ADL's. OT [facility] Goals [facility] Goals Time Frame: May 18, 2016 Eating (FIM): 6 Eating (QC): 6 Groomin Oral Hygiene (QC): 6 Bathing(FIM): 5 Shower/Bathe Self (QC): 5 Upper Body Dressing(FIM): 6 Upper Body Dressing (QC): 6 Lower Body Dressing(FIM): 6 Lower Body Dressing (QC): 6 On/Off Footwear (QC): 6 Toileting(FIM): 6 Toileting Hygiene (QC): 6 Transfers (B,C,W/C) (FIM): 6 Toilet/Commode Transfer(FIM): 6 Toilet/Commode Transfer (QC): 6 Shower Transfer(FIM): 5 Comprehension(FIM): 3 Expression (FIM): 3 Social Interaction(FIM): 4 Additional Goals: 1-Demonstrate ADL Tasks, 2-Verbalize Understanding, 3- ImproveStrength/Gam[place]iel 1=Demonstrate adherence to instructed precautions during ADL tasks. 2=Patient will verbalize/demonstrate understanding of assistive devices/ modifications for ADL. 3=Patient will improve strength/tolerance for activity to enable patient to perform ADL's. OT Education/Plan Problem List/Assessment Assessment: Decreased Safety Aware, Decreased UE Strength, Impaired Coordination, Impaired Funct Balance, Impaired I ADL's, Impaired Self-Care Skills, Visual-Perceptual Deficit Pt. was noted to run into items on the right side. Note right sided neglect. Discharge Recommendations Plan/Recommendations: Continue POC Therapy D/C Recommendations: Home w/ Family Support, Occupational Therapy Home Care, Scheduled Assistance Barriers to Progress Aphasia, fatigue Target Placement Home with family support. Treatment Plan/Plan of Care Treatment,Training & Education: Yes Patient would benefit from OT for education, treatment and training to promote independence in ADL's, mobility, safety and/or upper extremity function for ADL' s. Plan of Care: ADL Retraining, Functional Mobility, UE Funct Exercise/Act Treatment Duration: May 18, 2016 Visits Per Week: 10-12 Minutes/Day (M-F): 60-90 Minutes/Day (Sat/Fierro): PRN Agreement: Yes Rehab Potential: Fair Time/GCodes Start Time: 09:30 Stop Time: 10:45 Total Time Billed (hr/min): 75 Billed Treatment Time 1, ADL x 45minutes, Ex x 15minutes, FA x 15minutes TREY MICHELLE OT May 05, 2016 11:01
--- NOTE | 2016-05-05 11:52 | Physical Therapy Daily Note ---
PT Daily Note-Current Subjective Pt agreeable. Pt attempted to but unable to express and answer to this INVESTMENT DIRECTOR at times during the treatment. Pt able to tell me he is from [place]. Mental Status Patient Orientation: Person, Non-Verbal/Aphasic some frustration evident with aphasia. Transfers Functional [place] Measure 0=Not Assessed/NA 4=Minimal Assistance 1=Total Assistance 5=Supervision or Setup 2=Maximal Assistance 6=Modified [place] 3=Moderate Assistance 7=Complete IndependenceIRFPAI Quality Coding Scale 6 Independent with activity with or without an assistive device 5 Patient requires set up or clean up by helper. Patient completes activity by themselves 4 Supervision or touching assist (CGA). [place] provide cues , steadying assist 3 The helper provides less than half the effort to complete the activity 2 The helper provides more than half the effort to complete the activity 1 Dependent. The helper does all the effort to complete an activity 7 Patient refused to complete or attempt activity 9 The patient did not perform the activity before the current illness or injury 88 Not attempted due to Medical conditions or safety concerns Gait Training Gait Assistive Device: FWW Pt seen for gait training in [facility], x 25 min with emphasis on obstacles, very simple instructions, and turning to the R. Practiced sit to stand, ambulation around a round table and back to same chair x 4 bouts, turning the R. Pt requires direction from his (L) side in order to ambulate and turn successfully to the R. Stair Training Stair Training: Handrails/: 2 handrails CGA of 2 people for practice up/down steps of 4 x one bout. Pt tended to hurry going up the stairs in automatic fashion, with pt landing (R) foot precariously on the last step. No incident but pt did not follow directions to stop. Pt was able to go down the steps in slow and controlled manner and followed directions for sequence appropriately. Treatments Pt seated and practiced following object and tracking with eyes to the R. Pt able to follow the object perfectly x 10. Pt also practiced turning head to the R x 5 bouts. Pt able to demonstrate R cervical rotation equal to that on the L. Assessment Current Status: Good Progress Pt neema well with rest breaks as needed. (R) LE appeared to fatigue toward end of treatment. Pt safety limited by R side neglect. Pt able to follow directions most of the time with exception of ascending stairs and using hands for sit <->stand transfers. Pt was back in recliner with call light and all needs met. Ambu alarm activated. PT Short Term Goals Short Term Goals Time Frame: May 11, 2016 Transfers (B,C,W/C) (FIM): 5 Gait (FIM): 5 Distance (FIM): 3=150 ft Stairs (FIM): 4 PT Bed Operator Goals Bed Operator Goals PT Nursing Home Goals Time Frame: May 25, 2016 Transfers (B,C,W/C) (FIM): 7 Sit to Lying (QC): 6 Lying-Sitting on Side/Bed(QC): 6 Sit to Stand (QC): 6 Roll Left to Right (QC): 6 Chair/Ouv-as-Syjye Xfer(QC): 6 Car Transfer (QC): 6 Does the Patient Walk: Yes Gait (FIM): 6 Gait distance (FIM): 3=150 ft Walk 10 feet (QC): 6 Walk 10ft-Uneven Surface(QC): 6 Walk 50ft with 2 Turns (QC): 6 Walk 150 ft (QC): 6 Gait Assistive Device: FWW Does the Pt use WC or Scooter?: No Stairs (FIM): 6 # of Steps: 12 1 Step (curb) (QC): 6 4 Steps (QC): 6 12 Steps (QC): 6 Picking up an Object (QC): 6 PT Plan Treatment/Plan Treatment Plan: Continue Plan of Care Treatment Plan: Bed Mobility, Education, Functional Activity Gamaliel, Functional Strength, Group Therapy, Gait, Safety, Therapeutic Exercise, Transfers Treatment Duration: May 25, 2016 Visits Per Week: 10-15 Minutes/Day (M-F): 60-90 Minutes/Day (Sat/Fierro): prn Time/GCodes Time In: 1110 Time Out: 1140 Total Billed Treatment Time: 30 Total Billed Treatment 1, gait 30 min BALDOMERO WHALEN CPTA May 05, 2016 11:52
[2016-05-05 18:22] VITALS: BP 110/65
[2016-05-05] MEDS: SIMvastatin 20 MG (ZOCOR) TAB PO SCH (20:22)
[2016-05-05] MEDS: DONEPEZIL 10 MG (ARICEPT) TAB PO SCH (20:22)
[2016-05-05] MEDS: FINASTERIDE (PROSCAR) 5 MG TAB PO SCH (20:22)
[2016-05-05] MEDS: doxAzosin 4 MG (CARDURA) TAB PO SCH (20:22)
--- NOTE | 2016-05-05 20:26 | PM & R (SOAP) Progress Note ---
Subjective Subjective/Events-last exam Patient was seen on IRU earlier today Adjusting well to Unit Patient min assist for transfers Review of Systems Neurological: Weakness Objective Exam Last Set of Vital Signs Vital Signs Date Time Temp Pulse Resp B/P (MAP) Pulse Ox O2 Delivery O2 Flow Rate FiO2 05/05/16 18:22 97.5 72 14 110/65 95 05/05/16 09:00 Room Air 05/04/16 12:00 95.00 Capillary Refill : I&O Bad tableGeneral: Alert, Oriented X3, Cooperative, No Acute Distress HEENT: Atraumatic, PERRLA, EOMI, Mucous Memb Moist/[place] Neck: Supple, No JVD Lungs: Clear to Auscultation Heart: Regular Rate Abdomen: Normal Bowel Sounds, Soft, No Tenderness Extremities: No Edema Neuro: Other (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) Results Lab Laboratory Tests 05/05/16 05:20: Glucometer 151H 05/05/16 11:01: Glucometer 137H 05/05/16 16:08: Glucometer 128H Assessment/Plan Assessment Left MCA distribution CVA( frontal-parietal ) with RT 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
--- NOTE | 2016-05-05 20:34 | Individualized Plan of Care ---
Individualized Plan of Care Rehab Nursing IPOC Order Admission Date May 04, 2016 at 10:32 Current Orders Orders Code/Resuscitation (05/05/16 01:14) Consult Physician (05/05/16 09:38) Patient Visit (05/05/16 ) Treat. Speech/Lang/Voice (05/05/16 ) Patient Visit (05/05/16 ) Exercise Therap, Ea 15 Min (05/05/16 ) Gait Training, Ea 15 Min (05/05/16 ) Patient Visit (05/05/16 ) Gait Training, Ea 15 Min (05/05/16 ) Cbc With Automated Diff (05/06/16 06:00) Comprehensive Metabolic Panel (05/06/16 06:00) Rehab Nursing Orders: Diseage Management, Edu in Press Rel Techn, Hydration Management, Nutrition Management, Pain Management Toilet every (bladder): (hrs): q 2 hours while awake PT IPOC Problem List: Activity Tolerance, Functional Strength, Safety, Balance, Gait, Transfer Treatment Plan: Continue Plan of Care Bed Mobility, Education, Functional Activity Gamal[place], Functional Strength, Group Therapy, Gait, Safety, Therapeutic Exercise, Transfers Treatment Duration: May 25, 2016 Visits Per Week: 10-15 Minutes/Day (M-F): 60-90 Minutes/Day (Sat/Fierro): prn OT IPOC Problems: Decreased Safety Aware, Decreased UE Strength, Impaired Coordination , Impaired Funct Balance, Impaired I ADL's, Impaired Self-Care Skills, Visual- Perceptual Deficit OT Problems Pt. was noted to run into items on the right side. Note right sided neglect. Plan of Care: ADL Retraining, Functional Mobility, UE Funct Exercise/Act Treatment Duration: May 18, 2016 Visits Per Week: 10-12 Minutes/Day (M-F): 60-90 Minutes/Day (Sat/Fierro): PRN ST IPOC Speech Therapy Treatment Plan: Continue Plan of Care Treatment Duration: June 29, 2016 Visits Per Week: Five. Minutes/Day (M-F): 30 to 60 Physician IPOC Medical Issues being managed closely and that require the 24 hour availability of a physician:DM HTN Medical Issues: Bowel/Bladder Function, DVT Prophylaxis, Falls Precautions, Fluid/Electrolyte/Nutrition Balance, Infection Protection, Pain Management, Other (List) (as per above) Brief Synthesis of Preadmission Screen, Post-Admission Evaluation, and Therapy Evaluations:86 yo male who had been Independent and living in [facility] who had a repeat Left MCA distribution stroke with Rt HP and aphasia.Had a decline in Functional [place] due to this.Referred to IRU for comprhensive stroke rehab program Medical Prognosis: good Anticipated Length of Stay: 05/25/2016 Rehab Goals Modified Independent to supervision for adls and mobility skills with improved speech intelligibility Anticipated discharge destinat: Home with family and [facility] RACHAEL THEODORE MD May 05, 2016 20:34
[2016-05-06 05:13] VITALS: BP 124/57
[2016-05-06 05:32] LABS: BASOPHILS % (AUTO) 1 % (0-10); EOSINOPHILS # (AUTO) 0.2 10^3/uL (0.0-0.3); EOSINOPHILS % (AUTO) 3 % (0-10); LYMPHOCYTES % (AUTO) 36 % (12-44); MEAN CORPUSCULAR HEMOGLOBIN 36 PG (25-34); MEAN CORPUSCULAR HGB CONC 37 G/DL (32-36); MEAN CORPUSCULAR VOLUME 98 FL (80-99); MEAN PLATELET VOLUME 10.2 FL (7.4-10.4); MONOCYTES # (AUTO) 0.6 X 10^3 (0.0-1.0); MONOCYTES % (AUTO) 11 % (0-12); NEUTROPHILS # (AUTO) 2.7 X 10^3 (1.8-7.8); NEUTROPHILS % (AUTO) 50 % (42-75); PLATELET COUNT 150 10^3/uL (130-400); RED BLOOD COUNT 3.88 10^6/uL (4.35-5.85); RED CELL DISTRIBUTION WIDTH 12.1 % (10.0-14.5); WHITE BLOOD COUNT 5.5 10^3/uL (4.3-11.0)
[2016-05-06 05:58] LABS: ALANINE AMINOTRANSFERASE 38 U/L (0-55); ALBUMIN 3.5 G/DL (3.2-4.5); ANION GAP 11 MMOL/L (5-14); ASPARTATE AMINO TRANSFERASE 34 U/L (5-34); BILIRUBIN,TOTAL 0.5 MG/DL (0.1-1.0); BLOOD UREA NITROGEN 12 MG/DL (7-18); BUN/CREATININE RATIO 16; CALCIUM 8.2 MG/DL (8.5-10.1); CARBON DIOXIDE 22 MMOL/L (21-32); CHLORIDE 106 MMOL/L (98-107); CREATININE SERUM 0.77 MG/DL (0.60-1.30); GFR ESTIMATED > 60; GLUCOSE 154 MG/DL (70-105); POTASSIUM 3.8 MMOL/L (3.6-5.0); SODIUM 139 MMOL/L (135-145)
[2016-05-06] MEDS: OMEGA 3 (FISH OIL) 1000 MG CAP PO SCH ×2 (06:09→17:04)
[2016-05-06] MEDS: glyBURIDE 5 MG (MICRONASE) TAB PO SCH ×2 (06:09→17:04)
[2016-05-06] MEDS: lisINopril 20 MG (ZESTRIL) TAB PO SCH (07:46)
[2016-05-06] MEDS: CYANOCOBALAMIN 500 MCG TAB (VITAMIN B-12) PO SCH (07:47)
[2016-05-06] MEDS: PHENYTOIN 100 MG (DILANTIN) CAP PO SCH ×2 (07:47→20:09)
[2016-05-06] MEDS: ASPIRIN 81 MG CHEW (CHILDREN'S ASA) PO SCH (07:47)
[2016-05-06] MEDS: CLOPIDOGREL 75 MG (PLAVIX) TABLET PO SCH (07:47)
--- NOTE | 2016-05-06 07:57 | PM & R (SOAP) Progress Note ---
Subjective Subjective/Events-last exam Patient was seen in his room this AM Patient min assist for transfers Objective Exam Last Set of Vital Signs Vital Signs Date Time Temp Pulse Resp B/P (MAP) Pulse Ox O2 Delivery O2 Flow Rate FiO2 05/06/16 05:13 97.0 61 18 124/57 96 Room Air 05/04/16 12:00 95.00 Capillary Refill : I&O Intake and Output 05/06/16 00:00 Intake Total 1050 ml Balance 1050 ml Intake Oral 1050 ml # Voids 6 # Bowel Movements 1 General: Alert, Oriented X3, Cooperative, No Acute Distress HEENT: Atraumatic, PERRLA, EOMI, Mucous Memb Moist/[place] Neck: Supple, No JVD Lungs: Clear to Auscultation Heart: Regular Rate Abdomen: Normal Bowel Sounds, Soft, No Tenderness Extremities: No Edema Neuro: Other (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) Results Lab Laboratory Tests 05/05/16 05:20: Glucometer 151H 05/05/16 11:01: Glucometer 137H 05/05/16 16:08: Glucometer 128H 05/05/16 20:21: Glucometer 209H 05/06/16 05:10: Glucometer 147H 05/06/16 05:18: White Blood Count 5.5, Red Blood Count 3.88L, Hemoglobin 14.1, Hematocrit 38L, Mean Corpuscular Volume 98, Mean Corpuscular Hemoglobin 36H, Mean Corpuscular Hemoglobin Concent 37H, Red Cell Distribution Width 12.1, Platelet Count 150, Mean Platelet Volume 10.2, Neutrophils (%) (Auto) 50, Lymphocytes (%) (Auto) 36 , Monocytes (%) (Auto) 11, Eosinophils (%) (Auto) 3, Basophils (%) (Auto) 1, Neutrophils # (Auto) 2.7, Lymphocytes # (Auto) 2.0, Monocytes # (Auto) 0.6, Eosinophils # (Auto) 0.2, Basophils # (Auto) 0.0, Sodium Level 139, Potassium Level 3.8, Chloride Level 106, Carbon Dioxide Level 22, Anion Gap 11, Blood Urea Nitrogen 12, Creatinine 0.77, Estimat Glomerular Filtration Rate > 60, BUN/ Creatinine Ratio 16, Glucose Level 154H, Calcium Level 8.2L, Total Bilirubin 0.5 , Aspartate Amino Transf (AST/SGOT) 34, Alanine Aminotransferase (ALT/SGPT) 38, Alkaline Phosphatase 50, Total Protein 6.0L, Albumin 3.5 Assessment/Plan Assessment 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
--- NOTE | 2016-05-06 09:41 | Occupational Ther Daily Note ---
OT Current Status-Daily Note Subjective Pt alert, sitting in recliner. Pt agreed to therapy. No c/o pain at this time. Mental Status/Objective Patient Orientation: Person, Place, Time, Situation Functional [place] Measure 0=Not Assessed/NA 4=Minimal Assistance 1=Total Assistance 5=Supervision or Setup 2=Maximal Assistance 6=Modified [place] 3=Moderate Assistance 7=Complete [place] ADL-Treatment Pt declined a shower today and wanted to wash up at the sink. Pt took increased time to complete grooming skills due to working through steps and how to do things. Pt applied shaving cream to L side of face and shaved L side, inefficient. GRIDER had pt feel R side of face to make pt aware of R side. Pt completed own oral care and washed face sitting at sink. Cleansed upper body by self then SBA to cleanse lower body. After set up, pt donned/doffed upper body clothing and lower body clothing with SBA. Pt had difficulty stating what he needed then would either gesture to item or if seen and in reach would pick it up. After therapy, nrsg present in room, pt sitting in recliner with call light/phone in reach. All needs met in room. Functional [place] Measure 0=Not Assessed/NA 4=Minimal Assistance 1=Total Assistance 5=Supervision or Setup 2=Maximal Assistance 6=Modified [place] 3=Moderate Assistance 7=Complete IndependenceIRFPAI Quality Coding Scale 6 Independent with activity with or without an assistive device 5 Patient requires set up or clean up by helper. Patient completes activity by themselves 4 Supervision or touching assist (CGA). [place] provide cues , steadying assist 3 The helper provides less than half the effort to complete the activity 2 The helper provides more than half the effort to complete the activity 1 Dependent. The helper does all the effort to complete an activity 7 Patient refused to complete or attempt activity 9 The patient did not perform the activity before the current illness or injury 88 Not attempted due to Medical conditions or safety concerns Grooming (FIM): 3 Oral Hygiene (QC): 5 Bathing (FIM): 4 Upper Body (FIM): 5 Lower Body Dressing (FIM): 5 Transfers (B, C, W/C) (FIM): 4 OT Short Term Goals Short Term Goals Time Frame: May 11, 2016 Eating(FIM): 5 Grooming(FIM): 5 Bathing(FIM): 4 Upper Body Dressing(FIM): 5 Lower Body Dressing(FIM): 5 Toileting(FIM): 5 Transfers (B,C,W/C) (FIM): 5 Toilet/Commode Transfer(FIM): 5 Shower Transfer(FIM): 4 Additional Short Term Goals: 1-Demonstrate ADL Tasks, 2-Verbalize Understanding , 3-ImproveStrength/[place] 1=Demonstrate adherence to instructed precautions during ADL tasks. 2=Patient will verbalize/demonstrate understanding of assistive devices/ modifications for ADL. 3=Patient will improve strength/tolerance for activity to enable patient to perform ADL's. OT Shelter Goals B2B Sales Executive Goals Time Frame: May 18, 2016 Eating (FIM): 6 Eating (QC): 6 Groomin Oral Hygiene (QC): 6 Bathing(FIM): 5 Shower/Bathe Self (QC): 5 Upper Body Dressing(FIM): 6 Upper Body Dressing (QC): 6 Lower Body Dressing(FIM): 6 Lower Body Dressing (QC): 6 On/Off Footwear (QC): 6 Toileting(FIM): 6 Toileting Hygiene (QC): 6 Transfers (B,C,W/C) (FIM): 6 Toilet/Commode Transfer(FIM): 6 Toilet/Commode Transfer (QC): 6 Shower Transfer(FIM): 5 Comprehension(FIM): 3 Expression (FIM): 3 Social Interaction(FIM): 4 Additional Goals: 1-Demonstrate ADL Tasks, 2-Verbalize Understanding, 3- ImproveStrength/Gamaliel 1=Demonstrate adherence to instructed precautions during ADL tasks. 2=Patient will verbalize/demonstrate understanding of assistive devices/ modifications for ADL. 3=Patient will improve strength/tolerance for activity to enable patient to perform ADL's. OT Education/Plan Problem List/Assessment Pt. was noted to run into items on the right side. Note right sided neglect. Discharge Recommendations Plan/Recommendations: Continue POC Treatment Plan/Plan of Care Patient would benefit from OT for education, treatment and training to promote independence in ADL's, mobility, safety and/or upper extremity function for ADL' s. Plan of Care: ADL Retraining, Functional Mobility, UE Funct Exercise/Act Treatment Duration: May 18, 2016 Visits Per Week: 10-12 Minutes/Day (M-F): 60-90 Minutes/Day (Sat/Fierro): PRN Agreement: Yes Rehab Potential: Fair Time/GCodes Start Time: 07:00 Stop Time: 08:00 Total Time Billed (hr/min): 60 Billed Treatment Time 1 visit-ADL 4 (60 min) MERNA HOPSON May 06, 2016 09:41
--- NOTE | 2016-05-06 09:55 | Physical Therapy Daily Note ---
PT Daily Note-Current Subjective Pt agreeable and denies pain. Pt communicating by pointing and shaking head yes or no this morning. Pt did say a few appropriate phrases in answer to this SALES ORDER PROCESSOR' s questions. Pt also tends to repeat my instructions to verify he understands. Mental Status Patient Orientation: Person, Place, Situation Transfers Functional [place] Measure 0=Not Assessed/NA 4=Minimal Assistance 1=Total Assistance 5=Supervision or Setup 2=Maximal Assistance 6=Modified [place] 3=Moderate Assistance 7=Complete IndependenceIRFPAI Quality Coding Scale 6 Independent with activity with or without an assistive device 5 Patient requires set up or clean up by helper. Patient completes activity by themselves 4 Supervision or touching assist (CGA). [place] provide cues , steadying assist 3 The helper provides less than half the effort to complete the activity 2 The helper provides more than half the effort to complete the activity 1 Dependent. The helper does all the effort to complete an activity 7 Patient refused to complete or attempt activity 9 The patient did not perform the activity before the current illness or injury 88 Not attempted due to Medical conditions or safety concerns Pt requires vc's for hand placement during sit <->stand transfers. Pt showing better follow through by using hands today in comparison to yesterday. Gait Training Gait Assistive Device: FWW Gait training with and without FWW today. Pt practiced standing from a chair and walking 75ft around a round table and back to the chair, (practicing turning to his R) x 4 bouts. Pt required vc's for turns the first 2 bouts, pt did not require any vc's during the lat 2 bouts. Pt showing improvement in scanning and looking to his R this morning. Gait training x 125ft without AD, CGA of 2. Stair Training Stairs up/down x 2 bouts with rest between, CGA of 2 and vc's as needed as pt tends to hurry going up the stairs. Vc's to place entire foot on the step as needed and manual assist to the (R) hand for advancement as needed. Exercises Standin way Ex=Flex, Abd, Ext, Marching, Side steps Standing Reps: 15 Treatments Pt donned pants SBA. Pt donned shoes with assist. BR privileges, SBA. Pt seen for gait, balance and stair training. Pt education on safe transfer with use of hands, vc's for awareness to the R required and practice scanning with eyes toward the R throughout the treatment. Assessment Current Status: Good Progress Pt following instructions appropriately. Pt showing improved balance and coordination (R) LE today. Pt also showing improved awareness with improved ability to turn R. Pt back to chair with call light and all needs met. Ambu alarm activated. PT Short Term Goals Short Term Goals Time Frame: May 11, 2016 Transfers (B,C,W/C) (FIM): 5 Gait (FIM): 5 Distance (FIM): 3=150 ft Stairs (FIM): 4 PT Skilled Nursing Goals Photograph Editor Goals PT Skilled Nursing Goals Time Frame: May 25, 2016 Transfers (B,C,W/C) (FIM): 7 Sit to Lying (QC): 6 Lying-Sitting on Side/Bed(QC): 6 Sit to Stand (QC): 6 Roll Left to Right (QC): 6 Chair/Erm-if-Jokyq Xfer(QC): 6 Car Transfer (QC): 6 Does the Patient Walk: Yes Gait (FIM): 6 Gait distance (FIM): 3=150 ft Walk 10 feet (QC): 6 Walk 10ft-Uneven Surface(QC): 6 Walk 50ft with 2 Turns (QC): 6 Walk 150 ft (QC): 6 Gait Assistive Device: FWW Does the Pt use WC or Scooter?: No Stairs (FIM): 6 # of Steps: 12 1 Step (curb) (QC): 6 4 Steps (QC): 6 12 Steps (QC): 6 Picking up an Object (QC): 6 PT Plan Treatment/Plan Treatment Plan: Continue Plan of Care Treatment Plan: Bed Mobility, Education, Functional Activity Gamaliel, Functional Strength, Group Therapy, Gait, Safety, Therapeutic Exercise, Transfers Treatment Duration: May 25, 2016 Visits Per Week: 10-15 Minutes/Day (M-F): 60-90 Minutes/Day (Sat/Fierro): prn Time/GCodes Time In: 850 Time Out: 945 Total Billed Treatment Time: 55 Total Billed Treatment 1, FA 10min, Gait 30 min, Ther ex 15 min BALDOMERO WHALEN CPTA May 06, 2016 09:55
--- NOTE | 2016-05-06 10:08 | Speech Therapy Daily Note ---
Speech Daily Progress Note Subjective The patient was seated upright in recliner upon entrance. The patient greeted the clinician appropriately and agreed to participate in the speech and language session on this date. To note, the patient reported left eye discomfort. The patient's eye was visualized to be red and watery with sensitivity to light observed. The patient's RN was notified of the discomfort and stated she would address the report with the patient. Objective Orientation: The patient accurately stated his name, location, month, date, day of week, and year (independently). The patient continues to demonstrate imprecise articulation, however, remains 80% intelligible in known contexts. Bilabial Single and Multi-Syllabic Words: The patient demonstrated 80% accuracy with single syllable /b/ words (moderate clinician verbal cueing and modeling) and 90% accuracy with single syllable /p/ words (moderate clinician verbal cueing and modeling). The patient's accuracy continued to multi-syllabic words, however, slightly reduced to 70% with bilabial sentences. Providing the patient with a visual of the words appeared to increase accuracy. Assessment Assessment Current Status: Good Progress Treatment Plan Continue Plan of Care Communication Comprehension: 3 Expression: 2 Social Cognition Social Interaction: 2 Problem Solvin Memory: 4 Speech Short Term Goals Short Term Goals Short Term Goals 1. The patient will state names of five common objects and five common pictures with 90% accuracy and mild clinician cueing. 2. The patient will repeat single words and short phrases with 90% accuracy with moderate clinician verbal cueing. 3. The patient will demonstrated 90% accuracy with simple yes/no questions. 4. The patient will display 90% accuracy with simple, one-step commands. Time Frame-STG: Three Weeks Speech Fpc Goals Fpc Goals 1. The patient will demonstrate improved receptive and expressive communication skills for increased safety and function with ADL's. Time Frame: Two Months Comprehension: 3 Expression: 3 Social Interaction: 4 Speech-Plan Treatment Plan Speech Therapy Treatment Plan: Continue Plan of Care Continue skilled speech therapy to target improved expressive and receptive communication. Treatment Duration: June 29, 2016 # of days/week Five Visits Per Week: Five. Minutes/Day (M-F): 30 to 60 Rehab Potential: Fair Safety Risks/Education Teaching Recipient: Patient Teaching Methods: Demonstration, Handout, Discussion Response to Teaching: Reinforcement Needed Education Topics Provided: Bilabial Practice Sheets Time Speech Therapy Time In: 08:00 Speech Therapy Time Out: 08:45 Total Billed Time: 45 Billed Treatment Time 1, AUBREY GALLEGOS May 06, 2016 10:08
--- NOTE | 2016-05-06 10:25 | Progress Note-Hospitalist ---
Progress Note Progress Notes/Assess & Plan Date Seen 05/06/16 Diagonsis/Assessment & Plan Chart Review: Vitals stable WBC 5.5 Hgb 14 CMP all normal supplier quality engineer: RN states that pt is doing well and RN has no requests. Patient Interview: Pt states that he does not feel very well overall, and has some pain. Pt reports regular BMs. Physical exam stable. abdomen fever, vital signs stable, pleasant, up in chair Mostly aphasic Regular rate and rhythm, clear to auscultation bilaterally No edema Assessment: 1.previous CVA as characterized by speech abnormality and swallowing difficulties. 2.questionable recent increase in symptomatology. 3.past history of myocardial infarction. 4.hypertension. 5.diabetes mellitus type II [id number]. 6.peripheral neuropathy Plan: Pain management Continue rehab recovery Scribed by Samuel Denton under the direct supervision of Dr. Mitchell. MARYAM MITCHELL DO May 06, 2016 10:25
--- NOTE | 2016-05-06 14:56 | Therapy Group Daily Note ---
Therapy Daily Group Note Patient Education Topic Home Safety, Exercises Exercises LE Seated Exercise, LE Standing Exercise, Balance, Sit to/from Stand, ROM, Stretching, Gross Motor, UE Exercise Other/Notes Patient participated in OT/PT therapeutic group activity. Tasks performed with intent to stimulate skills needed for discharge plan. He was able to whisper but needed assist to clearly make answers know to the group. Performed seated and standing exercises. Worked on dynamic balance in standing to perform dice and valderrama bag toss. Worked on multi step planning during high attention activities. Cognitive facilitation during group to stimulate critical thinking and educate on home safety. Pt was able to stand with Minimal Assist for balance. Pt worked on verbalizing to the group in response to home safety questions. He ambulated 75ft with a FWW and Minimal Assist. Pt highly fatigued post treatment and became unsafe with transfer back to bed. Start Time: 13:00 Stop Time: 14:15 Total Billed Treatment Time: 75 Total Billed Treatment visit, Therapeutic group 75 minutes AGATHA REYEZ PT May 06, 2016 14:56
[2016-05-06] MEDS: LIDOCAINE 2% VISCOUS 15 ML UDC PO SCH (17:04)
[2016-05-06 17:28] VITALS: BP 133/75
[2016-05-06] MEDS: doxAzosin 4 MG (CARDURA) TAB PO SCH (20:08)
[2016-05-06] MEDS: DONEPEZIL 10 MG (ARICEPT) TAB PO SCH (20:08)
[2016-05-06] MEDS: FINASTERIDE (PROSCAR) 5 MG TAB PO SCH (20:08)
[2016-05-06] MEDS: SIMvastatin 20 MG (ZOCOR) TAB PO SCH (20:09)
[2016-05-06 20:18] VITALS: BP 118/82
[2016-05-07 05:08] VITALS: BP 125/63
[2016-05-07] MEDS: LIDOCAINE 2% VISCOUS 15 ML UDC PO SCH ×3 (06:00→16:32)
[2016-05-07] MEDS: OMEGA 3 (FISH OIL) 1000 MG CAP PO SCH ×2 (06:05→16:32)
[2016-05-07] MEDS: glyBURIDE 5 MG (MICRONASE) TAB PO SCH ×2 (06:05→16:32)
[2016-05-07] MEDS: CYANOCOBALAMIN 500 MCG TAB (VITAMIN B-12) PO SCH (08:02)
[2016-05-07] MEDS: ASPIRIN 81 MG CHEW (CHILDREN'S ASA) PO SCH (08:03)
[2016-05-07] MEDS: lisINopril 20 MG (ZESTRIL) TAB PO SCH (08:03)
[2016-05-07] MEDS: PHENYTOIN 100 MG (DILANTIN) CAP PO SCH ×2 (08:03→20:25)
[2016-05-07] MEDS: CLOPIDOGREL 75 MG (PLAVIX) TABLET PO SCH (08:03)
--- NOTE | 2016-05-07 09:41 | Physical Therapy Daily Note ---
PT Daily Note-Current Subjective Pt is non-verbal, but nods yes/no as needed. No issues indicated prior to start of therapy. Mental Status Patient Orientation: Non-Verbal/Aphasic Transfers Functional [place] Measure 0=Not Assessed/NA 4=Minimal Assistance 1=Total Assistance 5=Supervision or Setup 2=Maximal Assistance 6=Modified [place] 3=Moderate Assistance 7=Complete IndependenceIRFPAI Quality Coding Scale 6 Independent with activity with or without an assistive device 5 Patient requires set up or clean up by helper. Patient completes activity by themselves 4 Supervision or touching assist (CGA). [place] provide cues , steadying assist 3 The helper provides less than half the effort to complete the activity 2 The helper provides more than half the effort to complete the activity 1 Dependent. The helper does all the effort to complete an activity 7 Patient refused to complete or attempt activity 9 The patient did not perform the activity before the current illness or injury 88 Not attempted due to Medical conditions or safety concerns Transfers (B, C, W/C) (FIM): 6 Sit to/from Stand: 6 Gait Training Does the Patient Walk?: Yes Gait (FIM): 5 Distance: 225ft Gait Level of Assist: 5 Gait Persons Needed: 1 Gait Assistive Device: FWW Exercises Seated Therapy Exercises: LE Protocol Seated Reps: 15 Assessment Pt showed instability while turning to either direction. Good activity tolerance, and safe sit to/from stand transfers. PT Short Term Goals Short Term Goals Time Frame: May 11, 2016 Transfers (B,C,W/C) (FIM): 5 Gait (FIM): 5 Distance (FIM): 3=150 ft Stairs (FIM): 4 PT Mcfp Goals Mcfp Goals PT Mcfp Goals Time Frame: May 25, 2016 Transfers (B,C,W/C) (FIM): 7 Sit to Lying (QC): 6 Lying-Sitting on Side/Bed(QC): 6 Sit to Stand (QC): 6 Roll Left to Right (QC): 6 Chair/Vsy-hz-Zjuhz Xfer(QC): 6 Car Transfer (QC): 6 Does the Patient Walk: Yes Gait (FIM): 6 Gait distance (FIM): 3=150 ft Walk 10 feet (QC): 6 Walk 10ft-Uneven Surface(QC): 6 Walk 50ft with 2 Turns (QC): 6 Walk 150 ft (QC): 6 Gait Assistive Device: FWW Does the Pt use WC or Scooter?: No Stairs (FIM): 6 # of Steps: 12 1 Step (curb) (QC): 6 4 Steps (QC): 6 12 Steps (QC): 6 Picking up an Object (QC): 6 PT Plan Treatment/Plan Treatment Plan: Continue Plan of Care Treatment Plan: Bed Mobility, Education, Functional Activity Gamaliel, Functional Strength, Group Therapy, Gait, Safety, Therapeutic Exercise, Transfers Treatment Duration: May 25, 2016 Visits Per Week: 10-15 Minutes/Day (M-F): 60-90 Minutes/Day (Sat/Fierro): prn Time/GCodes Time In: 914 Time Out: 929 Total Billed Treatment Time: 15 Total Billed Treatment 1, gt 15 LUIS ANTONIO VANCE PT May 07, 2016 09:41
[2016-05-07 18:28] VITALS: BP 152/66
[2016-05-07] MEDS: FINASTERIDE (PROSCAR) 5 MG TAB PO SCH (20:26)
[2016-05-07] MEDS: DONEPEZIL 10 MG (ARICEPT) TAB PO SCH (20:26)
[2016-05-07] MEDS: doxAzosin 4 MG (CARDURA) TAB PO SCH (20:26)
[2016-05-07] MEDS: SIMvastatin 20 MG (ZOCOR) TAB PO SCH (20:26)
[2016-05-08 05:18] VITALS: BP 127/65
[2016-05-08] MEDS: LIDOCAINE 2% VISCOUS 15 ML UDC PO SCH ×3 (06:00→17:00)
[2016-05-08] MEDS: OMEGA 3 (FISH OIL) 1000 MG CAP PO SCH ×2 (06:14→17:00)
[2016-05-08] MEDS: glyBURIDE 5 MG (MICRONASE) TAB PO SCH ×2 (06:14→17:00)
[2016-05-08] MEDS: PHENYTOIN 100 MG (DILANTIN) CAP PO SCH ×2 (09:00→19:56)
[2016-05-08] MEDS: CYANOCOBALAMIN 500 MCG TAB (VITAMIN B-12) PO SCH (09:00)
[2016-05-08] MEDS: CLOPIDOGREL 75 MG (PLAVIX) TABLET PO SCH (09:00)
[2016-05-08] MEDS: ASPIRIN 81 MG CHEW (CHILDREN'S ASA) PO SCH (09:00)
[2016-05-08] MEDS: lisINopril 20 MG (ZESTRIL) TAB PO SCH (09:00)
[2016-05-08 18:00] VITALS: BP 125/67
[2016-05-08] MEDS: doxAzosin 4 MG (CARDURA) TAB PO SCH (19:56)
[2016-05-08] MEDS: DONEPEZIL 10 MG (ARICEPT) TAB PO SCH (19:56)
[2016-05-08] MEDS: FINASTERIDE (PROSCAR) 5 MG TAB PO SCH (19:56)
[2016-05-08] MEDS: SIMvastatin 20 MG (ZOCOR) TAB PO SCH (19:56)
[2016-05-09 05:03] VITALS: BP 117/62
[2016-05-09] MEDS: LIDOCAINE 2% VISCOUS 15 ML UDC PO SCH ×3 (06:08→17:22)
[2016-05-09] MEDS: glyBURIDE 5 MG (MICRONASE) TAB PO SCH ×2 (06:08→17:21)
[2016-05-09] MEDS: OMEGA 3 (FISH OIL) 1000 MG CAP PO SCH ×2 (06:08→17:21)
[2016-05-09] MEDS: CYANOCOBALAMIN 500 MCG TAB (VITAMIN B-12) PO SCH (07:51)
[2016-05-09] MEDS: CLOPIDOGREL 75 MG (PLAVIX) TABLET PO SCH (07:52)
[2016-05-09] MEDS: lisINopril 20 MG (ZESTRIL) TAB PO SCH (07:52)
[2016-05-09] MEDS: ASPIRIN 81 MG CHEW (CHILDREN'S ASA) PO SCH (07:53)
[2016-05-09] MEDS: PHENYTOIN 100 MG (DILANTIN) CAP PO SCH ×2 (07:56→21:28)
--- NOTE | 2016-05-09 10:49 | Speech Therapy Daily Note ---
Speech Daily Progress Note Subjective The patient was seated upright in recliner upon entrance. The patient greeted the clinician appropriately and agreed to participate in the speech and language session on this date. Objective Orientation: The patient accurately stated his name, location, month, date, day of week, and year (year requiring repetition cue from clinician). The patient continues to demonstrate imprecise articulation, however, remains 80% intelligible in known contexts. Bilabial Single and Multi-Syllabic Words: The patient demonstrated 60% accuracy with single syllable /w/ and /m/ words (moderate clinician verbal cueing and modeling). The patient's accuracy continued to multi-syllabic words. Providing the patient with a visual of the words appeared to increase accuracy. The patient's accuracy was mildly declined on this date and the patient demonstrated increased frustration on this date. Assessment Assessment Current Status: Fair Progress Treatment Plan Continue Plan of Care Communication Comprehension: 3 Expression: 2 Social Cognition Social Interaction: 3 Problem Solvin Memory: 3 Speech Short Term Goals Short Term Goals Short Term Goals 1. The patient will state names of five common objects and five common pictures with 90% accuracy and mild clinician cueing. 2. The patient will repeat single words and short phrases with 90% accuracy with moderate clinician verbal cueing. 3. The patient will demonstrated 90% accuracy with simple yes/no questions. 4. The patient will display 90% accuracy with simple, one-step commands. Time Frame-STG: Three Weeks Speech Intermediate Goals Popped Corn Oven Attendant Goals 1. The patient will demonstrate improved receptive and expressive communication skills for increased safety and function with ADL's. Time Frame: Two Months Comprehension: 3 Expression: 3 Social Interaction: 4 Speech-Plan Treatment Plan Speech Therapy Treatment Plan: Continue Plan of Care Continue skilled speech pathology to improve verbal expressive communication. Treatment Duration: June 29, 2016 # of days/week Five. Visits Per Week: Five. Minutes/Day (M-F): 30 to 60 Rehab Potential: Fair Safety Risks/Education Teaching Recipient: Patient Teaching Methods: Demonstration, Handout, Discussion Response to Teaching: Return Demonstration, Reinforcement Needed Education Topics Provided: Bilabial Practice Sheets Time Speech Therapy Time In: 09:07 Speech Therapy Time Out: 09:52 Total Billed Time: 45 Billed Treatment Time 1FRANNIE ELIZABETH May 09, 2016 10:49
--- NOTE | 2016-05-09 11:18 | Physical Therapy Daily Note ---
PT Daily Note-Current Transfers Functional [place] Measure 0=Not Assessed/NA 4=Minimal Assistance 1=Total Assistance 5=Supervision or Setup 2=Maximal Assistance 6=Modified [place] 3=Moderate Assistance 7=Complete IndependenceIRFPAI Quality Coding Scale 6 Independent with activity with or without an assistive device 5 Patient requires set up or clean up by helper. Patient completes activity by themselves 4 Supervision or touching assist (CGA). [place] provide cues , steadying assist 3 The helper provides less than half the effort to complete the activity 2 The helper provides more than half the effort to complete the activity 1 Dependent. The helper does all the effort to complete an activity 7 Patient refused to complete or attempt activity 9 The patient did not perform the activity before the current illness or injury 88 Not attempted due to Medical conditions or safety concerns PT Short Term Goals Short Term Goals Time Frame: May 11, 2016 Transfers (B,C,W/C) (FIM): 5 Gait (FIM): 5 Distance (FIM): 3=150 ft Stairs (FIM): 4 PT Senior Living Goals Senior Living Goals PT Shipping Inspector Goals Time Frame: May 25, 2016 Transfers (B,C,W/C) (FIM): 7 Sit to Lying (QC): 6 Lying-Sitting on Side/Bed(QC): 6 Sit to Stand (QC): 6 Roll Left to Right (QC): 6 Chair/Tle-oj-Yjfuc Xfer(QC): 6 Car Transfer (QC): 6 Does the Patient Walk: Yes Gait (FIM): 6 Gait distance (FIM): 3=150 ft Walk 10 feet (QC): 6 Walk 10ft-Uneven Surface(QC): 6 Walk 50ft with 2 Turns (QC): 6 Walk 150 ft (QC): 6 Gait Assistive Device: FWW Does the Pt use WC or Scooter?: No Stairs (FIM): 6 # of Steps: 12 1 Step (curb) (QC): 6 4 Steps (QC): 6 12 Steps (QC): 6 Picking up an Object (QC): 6 PT Plan Treatment/Plan Treatment Plan: Bed Mobility, Education, Functional Activity Gamaliel, Functional Strength, Group Therapy, Gait, Safety, Therapeutic Exercise, Transfers Treatment Duration: May 25, 2016 Visits Per Week: 10-15 Minutes/Day (M-F): 60-90 Minutes/Day (Sat/Fierro): prn Time/GCodes Time In: 1000 Time Out: 1045 Total Billed Treatment Time: 45 Total Billed Treatment visit, GT(20m), EX (15m) & FA (10m) SAKSHI PRESSLEY LEAD RUBY ON RAILS DEVELOPER May 09, 2016 11:18
--- NOTE | 2016-05-09 12:16 | Physical Therapy Daily Note ---
PT Daily Note-Current Subjective Pt sitting in recliner upon arrival. Pt reports no pain when asked. Pt agrees to PT by nodding head. Pain Location: No Pain Reported Mental Status Patient Orientation: Person, Place, Time, Situation Transfers Functional [place] Measure 0=Not Assessed/NA 4=Minimal Assistance 1=Total Assistance 5=Supervision or Setup 2=Maximal Assistance 6=Modified [place] 3=Moderate Assistance 7=Complete IndependenceIRFPAI Quality Coding Scale 6 Independent with activity with or without an assistive device 5 Patient requires set up or clean up by helper. Patient completes activity by themselves 4 Supervision or touching assist (CGA). [place] provide cues , steadying assist 3 The helper provides less than half the effort to complete the activity 2 The helper provides more than half the effort to complete the activity 1 Dependent. The helper does all the effort to complete an activity 7 Patient refused to complete or attempt activity 9 The patient did not perform the activity before the current illness or injury 88 Not attempted due to Medical conditions or safety concerns Transfers (B, C, W/C) (FIM): 4 Scootin Sit to/from Stand: 4 Sit to Stand (QC): 4 Weight Bearing Weight Bearing Restriction: Full Weight Bearing Location Restriction: LE Bilateral Gait Training Does the Patient Walk?: Yes Gait (FIM): 4 Distance (FIM): 3=150 ft Distance: 300' Walk 10 feet (QC): 4 Walk 50 ft with 2 Turns(QC): 4 Walk 150 ft (QC): 4 Gait Level of Assist: 4 Gait Persons Needed: 1 Gait Assistive Device: FWW Pt walks with R lean due to R side neglect and has difficulty making R turns. Pt tends to drift to R while ambulating and PT is at [facility] for safety/balance. Wheelchair Training Does the Pt Use a Wheelchair?: No Exercises NuStep Minutes: 10 NuStep Workload: 6 Treatments Pt transfers at [facility] for safety/balance. Pt is also [facility] while ambulating using FWW. Pt needs frequent VC for reference and sequencing especially with R turns due to R neglect. Pt completes ambulation in [facility] with focus on R neglect while ambulating. Pt uses NuStep for strengthening and activity tolerance to increase balance. Pt returns to room to use restroom at end of tx before returning to recliner to rest with all needs met. Assessment Current Status: Fair Progress Pt is motivated and at times gets a little frustrated with self during tasks when getting VC for transfers and ambulation. Pt has some cognitive awareness deficits and PT tries to offer encouragement during tx if pt appears down. PT Short Term Goals Short Term Goals Time Frame: May 11, 2016 Transfers (B,C,W/C) (FIM): 5 Gait (FIM): 5 Distance (FIM): 3=150 ft Stairs (FIM): 4 PT Haul Truck Driver Goals Half-Way Goals PT Haul Truck Driver Goals Time Frame: May 25, 2016 Transfers (B,C,W/C) (FIM): 7 Sit to Lying (QC): 6 Lying-Sitting on Side/Bed(QC): 6 Sit to Stand (QC): 6 Roll Left to Right (QC): 6 Chair/Zsf-pg-Tajis Xfer(QC): 6 Car Transfer (QC): 6 Does the Patient Walk: Yes Gait (FIM): 6 Gait distance (FIM): 3=150 ft Walk 10 feet (QC): 6 Walk 10ft-Uneven Surface(QC): 6 Walk 50ft with 2 Turns (QC): 6 Walk 150 ft (QC): 6 Gait Assistive Device: FWW Does the Pt use WC or Scooter?: No Stairs (FIM): 6 # of Steps: 12 1 Step (curb) (QC): 6 4 Steps (QC): 6 12 Steps (QC): 6 Picking up an Object (QC): 6 PT Plan Problem List Problem List: Activity Tolerance, Functional Strength, Safety, Balance, Gait, Transfer Treatment/Plan Treatment Plan: Continue Plan of Care Treatment Plan: Bed Mobility, Education, Functional Activity Gamaliel, Functional Strength, Group Therapy, Gait, Safety, Therapeutic Exercise, Transfers Treatment Duration: May 25, 2016 Visits Per Week: 10-15 Minutes/Day (M-F): 60-90 Minutes/Day (Sat/Fierro): prn Safety Risks/Education Patient Education: Gait Training, Transfer Techniques, Correct Positioning, Safety Issues Teaching Recipient: Patient Teaching Methods: Discussion Response to Teaching: Reinforcement Needed Time/GCodes Time In: 1000 Time Out: 1045 Total Billed Treatment Time: 45 Total Billed Treatment visit, GT (20m), EX (15m) & FA (10m) SAKSHI PRESSLEY PTA May 09, 2016 12:16
--- NOTE | 2016-05-09 13:13 | Occupational Ther Daily Note ---
OT Current Status-Daily Note Subjective Pt seen in room, up in recliner, agreeable to OT. No pain mentioned Appearance Alert, cooperative, answered with yes/no that was about 75% accurate Mental Status/Objective Functional [place] Measure 0=Not Assessed/NA 4=Minimal Assistance 1=Total Assistance 5=Supervision or Setup 2=Maximal Assistance 6=Modified [place] 3=Moderate Assistance 7=Complete [place] ADL-Treatment Pt declined to bathe or change clothes but did agree to brush teeth. Functional [place] Measure 0=Not Assessed/NA 4=Minimal Assistance 1=Total Assistance 5=Supervision or Setup 2=Maximal Assistance 6=Modified [place] 3=Moderate Assistance 7=Complete IndependenceIRFPAI Quality Coding Scale 6 Independent with activity with or without an assistive device 5 Patient requires set up or clean up by helper. Patient completes activity by themselves 4 Supervision or touching assist (CGA). [place] provide cues , steadying assist 3 The helper provides less than half the effort to complete the activity 2 The helper provides more than half the effort to complete the activity 1 Dependent. The helper does all the effort to complete an activity 7 Patient refused to complete or attempt activity 9 The patient did not perform the activity before the current illness or injury 88 Not attempted due to Medical conditions or safety concerns Grooming (FIM): 5 (Pt sat in chair to brush teeth. He was able to find all the items necessary, put toothpaste on his toothbrush and clean his teeth with supervision. Had some difficulty locating items on Right side of sink. Walker to and from bathroom with FWW, CGA, help with steering) Other Treatment Pt walked CGA, FWW to gym, with assistance as he ran into items on R side and didn't look where he was going (for example, ran into leg of chair on his R side ). [facility] for safety. In gym, pt did 12 minutes bilat UE exercise with arm bike set at 20W resistance, with no breaks. To streghen arms for walker use. Also did standardized testing on UES: Marine Plumber: R 60, 56 58 (average (58 lb) L 54, 54, 60 (average (average 56 lb.) Box and Blocks Coordination test: R 15 blocks in 1 minute L 29 blocks in 1 minute 9 Hole Peg test: R 2:20 L :50 Gross strength is comparable in both hands but coordination is impaired Pt walked back to room, CGA, FWW and still ran into items on R side. Sat EOB and was able to feed himself with minimal setup. Education OT Patient Education: Progress toward Goal/Update tx plan, Purpose of tx/ functional activities Teaching Recipient: Patient Teaching Methods: Discussion Response to Teaching: Return Demonstration OT Short Term Goals Short Term Goals Time Frame: May 11, 2016 Eating(FIM): 5 Grooming(FIM): 5 Bathing(FIM): 4 Upper Body Dressing(FIM): 5 Lower Body Dressing(FIM): 5 Toileting(FIM): 5 Transfers (B,C,W/C) (FIM): 5 Toilet/Commode Transfer(FIM): 5 Shower Transfer(FIM): 4 Additional Short Term Goals: 1-Demonstrate ADL Tasks, 2-Verbalize Understanding , 3-ImproveStrength/Gamaliel 1=Demonstrate adherence to instructed precautions during ADL tasks. 2=Patient will verbalize/demonstrate understanding of assistive devices/ modifications for ADL. 3=Patient will improve strength/tolerance for activity to enable patient to perform ADL's. OT Retirement Goals Retirement Goals Time Frame: May 18, 2016 Eating (FIM): 6 Eating (QC): 6 Groomin Oral Hygiene (QC): 6 Bathing(FIM): 5 Shower/Bathe Self (QC): 5 Upper Body Dressing(FIM): 6 Upper Body Dressing (QC): 6 Lower Body Dressing(FIM): 6 Lower Body Dressing (QC): 6 On/Off Footwear (QC): 6 Toileting(FIM): 6 Toileting Hygiene (QC): 6 Transfers (B,C,W/C) (FIM): 6 Toilet/Commode Transfer(FIM): 6 Toilet/Commode Transfer (QC): 6 Shower Transfer(FIM): 5 Comprehension(FIM): 3 Expression (FIM): 3 Social Interaction(FIM): 4 Additional Goals: 1-Demonstrate ADL Tasks, 2-Verbalize Understanding, 3- ImproveStrength/Gamaliel 1=Demonstrate adherence to instructed precautions during ADL tasks. 2=Patient will verbalize/demonstrate understanding of assistive devices/ modifications for ADL. 3=Patient will improve strength/tolerance for activity to enable patient to perform ADL's. OT Education/Plan Problem List/Assessment Pt. was noted to run into items on the right side. Note right sided neglect. Discharge Recommendations Plan/Recommendations: Continue POC Treatment Plan/Plan of Care Patient would benefit from OT for education, treatment and training to promote independence in ADL's, mobility, safety and/or upper extremity function for ADL' s. Plan of Care: ADL Retraining, Functional Mobility, UE Funct Exercise/Act Treatment Duration: May 18, 2016 Visits Per Week: 10-12 Minutes/Day (M-F): 60-90 Minutes/Day (Sat/Fierro): PRN Agreement: Yes Rehab Potential: Fair Time/GCodes Start Time: 11:00 Stop Time: 11:45 Total Time Billed (hr/min): 45 Billed Treatment Time visit, ADL 10 minutes, neuromotor 35 minutes DARELL GALVEZ OT May 09, 2016 13:13
--- NOTE | 2016-05-09 13:39 | Physical Therapy Daily Note ---
PT Daily Note-Current Subjective Pt. with some right neglect unless cued, attempts speaking and conversing several times and does eventually get his point across but its apparent he is frustrated with himself. Pain Numeric Pain Scale: 0-No Pain Appearance pt. only looks to right with cues and direction , but with cues pt. gives greater effort Mental Status Patient Orientation: Non-Verbal/Aphasic Transfers Functional [place] Measure 0=Not Assessed/NA 4=Minimal Assistance 1=Total Assistance 5=Supervision or Setup 2=Maximal Assistance 6=Modified [place] 3=Moderate Assistance 7=Complete IndependenceIRFPAI Quality Coding Scale 6 Independent with activity with or without an assistive device 5 Patient requires set up or clean up by helper. Patient completes activity by themselves 4 Supervision or touching assist (CGA). [place] provide cues , steadying assist 3 The helper provides less than half the effort to complete the activity 2 The helper provides more than half the effort to complete the activity 1 Dependent. The helper does all the effort to complete an activity 7 Patient refused to complete or attempt activity 9 The patient did not perform the activity before the current illness or injury 88 Not attempted due to Medical conditions or safety concerns Transfers (B, C, W/C) (FIM): 4 Scootin Rollin Supine to/from Sit: 5 Sit to/from Stand: 5 Bed to/from Chair: 4 pts. aphasia precludes his functional mobility, pt. can TRF with SBA but needs direction and often a demonstration repeated Gait Training Does the Patient Walk?: Yes Gait (FIM): 4 Distance (FIM): 3=150 ft Gait Level of Assist: 4 Gait Persons Needed: 1 Gait Assistive Device: FWW repeated cues and direction at pts right side as he leans occas and right hand begins to slip off FWW. pt. also would run into objects on right if not cued. Pt. does respond to repeated direction and shows at times temporary improvement Exercises Seated Therapy Exercises: Ankle pumps, Sit to stand, Long arc quads, Hip flexion Seated Reps: 15 NuStep Minutes: 10 NuStep Workload: 3 Treatments on Nustep much direction for attentiveness to right side as pts right hand slipped off occas etc. Assessment Current Status: Good Progress PT Short Term Goals Short Term Goals Time Frame: May 11, 2016 Transfers (B,C,W/C) (FIM): 5 Gait (FIM): 5 Distance (FIM): 3=150 ft Stairs (FIM): 4 PT Mcc Goals Tape Transferrer Goals PT Mcc Goals Time Frame: May 25, 2016 Transfers (B,C,W/C) (FIM): 7 Sit to Lying (QC): 6 Lying-Sitting on Side/Bed(QC): 6 Sit to Stand (QC): 6 Roll Left to Right (QC): 6 Chair/Yxc-sr-Yfhtt Xfer(QC): 6 Car Transfer (QC): 6 Does the Patient Walk: Yes Gait (FIM): 6 Gait distance (FIM): 3=150 ft Walk 10 feet (QC): 6 Walk 10ft-Uneven Surface(QC): 6 Walk 50ft with 2 Turns (QC): 6 Walk 150 ft (QC): 6 Gait Assistive Device: FWW Does the Pt use WC or Scooter?: No Stairs (FIM): 6 # of Steps: 12 1 Step (curb) (QC): 6 4 Steps (QC): 6 12 Steps (QC): 6 Picking up an Object (QC): 6 PT Plan Treatment/Plan Treatment Plan: Continue Plan of Care Treatment Plan: Bed Mobility, Education, Functional Activity Gamaliel, Functional Strength, Group Therapy, Gait, Safety, Therapeutic Exercise, Transfers Treatment Duration: May 25, 2016 Visits Per Week: 10-15 Minutes/Day (M-F): 60-90 Minutes/Day (Sat/Fierro): prn Safety Risks/Education Patient Education: Gait Training, Transfer Techniques, Correct Positioning, Disease Process, Safety Issues Teaching Recipient: Patient Teaching Methods: Demonstration, Discussion Response to Teaching: Verbalize Understanding, Return Demonstration, Reinforcement Needed Time/GCodes Time In: 1300 Time Out: 1330 Total Billed Treatment Time: 30 Total Billed Treatment 1,EX15,GT15 G Codes Necessary: AMNA Espinal FUR EXAMINER May 09, 2016 13:38
--- NOTE | 2016-05-09 15:04 | Occupational Ther Daily Note ---
OT Current Status-Daily Note Subjective Pt seen in room, up in recliner, agreeable to OT. No pain mentioned Appearance Alert, cooperative Mental Status/Objective Functional [place] Measure 0=Not Assessed/NA 4=Minimal Assistance 1=Total Assistance 5=Supervision or Setup 2=Maximal Assistance 6=Modified [place] 3=Moderate Assistance 7=Complete [place] ADL-Treatment Functional [place] Measure 0=Not Assessed/NA 4=Minimal Assistance 1=Total Assistance 5=Supervision or Setup 2=Maximal Assistance 6=Modified [place] 3=Moderate Assistance 7=Complete IndependenceIRFPAI Quality Coding Scale 6 Independent with activity with or without an assistive device 5 Patient requires set up or clean up by helper. Patient completes activity by themselves 4 Supervision or touching assist (CGA). [place] provide cues , steadying assist 3 The helper provides less than half the effort to complete the activity 2 The helper provides more than half the effort to complete the activity 1 Dependent. The helper does all the effort to complete an activity 7 Patient refused to complete or attempt activity 9 The patient did not perform the activity before the current illness or injury 88 Not attempted due to Medical conditions or safety concerns Other Treatment Pt walked CGA for safety, FWW to gym. pt sometimes leaned to the right and ran into chair legs or door frames unless skilled cues provided. Pt worked on fine motor coordination tasks with R hand, copying block patterns with 1" blocks an. Able to match colors and shapes but some incoord with placement of block. Also worked with 1" and 1/2" pegs, with assistance to place peg in his fingers. He occasionally used L hand to steady peg or to reposition it. occasional cues to look to the right side. Pt demonstrated increased accuracy with placement by end of tx. Pt walked back to room with CGA, FWW with occ leaning to R side. pt left up in recliner, chair alarm on, all needs met. Education OT Patient Education: Progress toward Goal/Update tx plan, Purpose of tx/ functional activities, Safety issues Teaching Methods: Discussion Response to Teaching: Return Demonstration, Reinforcement Needed OT Short Term Goals Short Term Goals Time Frame: May 11, 2016 Eating(FIM): 5 Grooming(FIM): 5 Bathing(FIM): 4 Upper Body Dressing(FIM): 5 Lower Body Dressing(FIM): 5 Toileting(FIM): 5 Transfers (B,C,W/C) (FIM): 5 Toilet/Commode Transfer(FIM): 5 Shower Transfer(FIM): 4 Additional Short Term Goals: 1-Demonstrate ADL Tasks, 2-Verbalize Understanding , 3-ImproveStrength/Gamaliel 1=Demonstrate adherence to instructed precautions during ADL tasks. 2=Patient will verbalize/demonstrate understanding of assistive devices/ modifications for ADL. 3=Patient will improve strength/tolerance for activity to enable patient to perform ADL's. OT Ergonomics Technician Goals Fdc Goals Time Frame: May 18, 2016 Eating (FIM): 6 Eating (QC): 6 Groomin Oral Hygiene (QC): 6 Bathing(FIM): 5 Shower/Bathe Self (QC): 5 Upper Body Dressing(FIM): 6 Upper Body Dressing (QC): 6 Lower Body Dressing(FIM): 6 Lower Body Dressing (QC): 6 On/Off Footwear (QC): 6 Toileting(FIM): 6 Toileting Hygiene (QC): 6 Transfers (B,C,W/C) (FIM): 6 Toilet/Commode Transfer(FIM): 6 Toilet/Commode Transfer (QC): 6 Shower Transfer(FIM): 5 Comprehension(FIM): 3 Expression (FIM): 3 Social Interaction(FIM): 4 Additional Goals: 1-Demonstrate ADL Tasks, 2-Verbalize Understanding, 3- ImproveStrength/Gamaliel 1=Demonstrate adherence to instructed precautions during ADL tasks. 2=Patient will verbalize/demonstrate understanding of assistive devices/ modifications for ADL. 3=Patient will improve strength/tolerance for activity to enable patient to perform ADL's. OT Education/Plan Problem List/Assessment Pt. was noted to run into items on the right side. Note right sided neglect. Discharge Recommendations Plan/Recommendations: Continue POC Treatment Plan/Plan of Care Patient would benefit from OT for education, treatment and training to promote independence in ADL's, mobility, safety and/or upper extremity function for ADL' s. Plan of Care: ADL Retraining, Functional Mobility, UE Funct Exercise/Act Treatment Duration: May 18, 2016 Visits Per Week: 10-12 Minutes/Day (M-F): 60-90 Minutes/Day (Sat/Fierro): PRN Agreement: Yes Rehab Potential: Fair Time/GCodes Start Time: 13:30 Stop Time: 14:00 Total Time Billed (hr/min): 30 Billed Treatment Time visit, 30 minutes neuromotor DARELL GALVEZ OT May 09, 2016 15:04
[2016-05-09 18:43] VITALS: BP 153/78
--- NOTE | 2016-05-09 20:42 | PM & R (SOAP) Progress Note ---
Subjective Subjective/Events-last exam Patient was seen in his room this evening Patient min assist for transfers.Appreciate DR Chakraborty note Objective Exam Last Set of Vital Signs Vital Signs Date Time Temp Pulse Resp B/P (MAP) Pulse Ox O2 Delivery O2 Flow Rate FiO2 05/09/16 18:43 98.4 74 20 153/78 96 Room Air 05/04/16 12:00 95.00 Capillary Refill : I&O Intake and Output 05/09/16 00:00 Intake Total 2300 ml Balance 2300 ml Intake Oral 2300 ml # Voids 6 # Bowel Movements 3 General: Alert, Oriented X3, Cooperative, No Acute Distress HEENT: Atraumatic, PERRLA, EOMI, Mucous Memb Moist/Krebs Neck: Supple, No JVD Lungs: Clear to Auscultation Heart: Regular Rate Abdomen: Normal Bowel Sounds, Soft, No Tenderness Extremities: No Edema Neuro: Other (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) Results Lab Laboratory Tests 05/07/16 06:06: Glucometer 173H 05/07/16 11:03: Glucometer 231H 05/07/16 16:30: Glucometer 108 05/07/16 21:06: Glucometer 200H 05/08/16 05:00: Glucometer 163H 05/08/16 11:09: Glucometer 259H 05/08/16 16:01: Glucometer 167H 05/08/16 20:28: Glucometer 251H 05/09/16 05:30: Glucometer 150H 05/09/16 10:56: Glucometer 200H 05/09/16 16:29: Glucometer 157H 05/09/16 20:11: Glucometer 249H Assessment/Plan Assessment 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
[2016-05-09] MEDS: doxAzosin 4 MG (CARDURA) TAB PO SCH (21:28)
[2016-05-09] MEDS: DONEPEZIL 10 MG (ARICEPT) TAB PO SCH (21:29)
[2016-05-09] MEDS: FINASTERIDE (PROSCAR) 5 MG TAB PO SCH (21:29)
[2016-05-09] MEDS: SIMvastatin 20 MG (ZOCOR) TAB PO SCH (21:29)
[2016-05-10 06:00] VITALS: BP 131/78
[2016-05-10] MEDS: LIDOCAINE 2% VISCOUS 15 ML UDC PO SCH ×3 (06:23→17:23)
[2016-05-10] MEDS: glyBURIDE 5 MG (MICRONASE) TAB PO SCH ×2 (06:23→17:23)
[2016-05-10] MEDS: OMEGA 3 (FISH OIL) 1000 MG CAP PO SCH ×2 (06:23→17:23)
[2016-05-10 08:01] VITALS: BP 114/68
[2016-05-10] MEDS: CYANOCOBALAMIN 500 MCG TAB (VITAMIN B-12) PO SCH (08:02)
[2016-05-10] MEDS: CLOPIDOGREL 75 MG (PLAVIX) TABLET PO SCH (08:03)
[2016-05-10] MEDS: ASPIRIN 81 MG CHEW (CHILDREN'S ASA) PO SCH (08:03)
[2016-05-10] MEDS: PHENYTOIN 100 MG (DILANTIN) CAP PO SCH ×2 (08:03→20:58)
[2016-05-10] MEDS: lisINopril 20 MG (ZESTRIL) TAB PO SCH (08:03)
--- NOTE | 2016-05-10 10:26 | Speech Therapy Daily Note ---
Speech Daily Progress Note Subjective The patient was seated upright in recliner upon entrance. The patient greeted the clinician appropriately and agreed to participate in the speech and language session on this date. Objective Orientation: The patient accurately stated his name, location, month, date, day of week, and year (year requiring repetition cue from clinician). The patient continues to demonstrate imprecise articulation, however, remains 80% intelligible in known contexts. Bilabial Single and Multi-Syllabic Words: The patient demonstrated 60% accuracy with single syllable /w/, /b/, /p/ and /m/ words (moderate clinician verbal cueing and modeling). The patient's accuracy continued to multi-syllabic words. Providing the patient with a visual of the words appeared to increase accuracy. The patient's accuracy was mildly declined on this date and the patient demonstrated increased frustration on this date. Sentence Completion: The patient demonstrated reduced accuracy with sentence completion on this date (approximately 40%) with maximum clinician cueing. Assessment Assessment Current Status: Fair Progress Treatment Plan Continue Plan of Care Communication Comprehension: 4 Expression: 3 Social Cognition Social Interaction: 3 Problem Solvin Memory: 3 Speech Short Term Goals Short Term Goals Short Term Goals 1. The patient will state names of five common objects and five common pictures with 90% accuracy and mild clinician cueing. 2. The patient will repeat single words and short phrases with 90% accuracy with moderate clinician verbal cueing. 3. The patient will demonstrated 90% accuracy with simple yes/no questions. 4. The patient will display 90% accuracy with simple, one-step commands. Time Frame-STG: Three Weeks Speech Skilled Nursing Goals Skilled Nursing Goals 1. The patient will demonstrate improved receptive and expressive communication skills for increased safety and function with ADL's. Time Frame: Two Months Comprehension: 3 Expression: 3 Social Interaction: 4 Speech-Plan Treatment Plan Speech Therapy Treatment Plan: Continue Plan of Care Continue skilled speech therapy to target functional expressive communication. Treatment Duration: June 29, 2016 # of days/week Five. Visits Per Week: Five. Minutes/Day (M-F): 30 to 60 Rehab Potential: Fair Safety Risks/Education Teaching Recipient: Patient Teaching Methods: Demonstration, Discussion Response to Teaching: Return Demonstration, Reinforcement Needed Education Topics Provided: Word-Finding Strategies Time Speech Therapy Time In: 08:30 Speech Therapy Time Out: 09:15 Total Billed Time: 45 Billed Treatment Time 1, SLAUBREY ROSARIO May 10, 2016 10:26
--- NOTE | 2016-05-10 11:05 | Occupational Ther Daily Note ---
OT Current Status-Daily Note Subjective Pt seen in room, up in recliner, agreeable to OT. Pt did not verbalize or demonstrate any pain. Pt pleased with progress Appearance Alert, cooperative Mental Status/Objective Functional [place] Measure 0=Not Assessed/NA 4=Minimal Assistance 1=Total Assistance 5=Supervision or Setup 2=Maximal Assistance 6=Modified [place] 3=Moderate Assistance 7=Complete [place] ADL-Treatment Pt used R hand throughout ADLs, with occasional skilled cues to use R UE. Able to wash under L arm, open toothpaste and put it on toothbrush, shave. Occasional cues due to R sided neglect Functional [place] Measure 0=Not Assessed/NA 4=Minimal Assistance 1=Total Assistance 5=Supervision or Setup 2=Maximal Assistance 6=Modified [place] 3=Moderate Assistance 7=Complete IndependenceIRFPAI Quality Coding Scale 6 Independent with activity with or without an assistive device 5 Patient requires set up or clean up by helper. Patient completes activity by themselves 4 Supervision or touching assist (CGA). [place] provide cues , steadying assist 3 The helper provides less than half the effort to complete the activity 2 The helper provides more than half the effort to complete the activity 1 Dependent. The helper does all the effort to complete an activity 7 Patient refused to complete or attempt activity 9 The patient did not perform the activity before the current illness or injury 88 Not attempted due to Medical conditions or safety concerns Grooming (FIM): 5 (supervision, occasional skilled cues for sequencing or completion of step. Washed face and hands, shaved, brushed teeth, combed hair. Seated) Bathing (FIM): 5 (Washed and dried all parts except back. Supervision and occasional cues for completing step in process of bathing. For example, skilled cues to wash lower legs, cues to sit for safety. Shower bench, grab bars, hand held shower. ) Upper Body (FIM): 5 (setup) Lower Body Dressing (FIM): 5 (SBA, supervision. Occas cues for sequencing and to sit to doff/don pants, for safety. ) Toileting (FIM): 5 (SBA when standing to manage clothing. managed hygiene.) Transfers (B, C, W/C) (FIM): 5 (Occ skilled cues for hand placement, especially for stand to sit so that he doesn't "plop") Toilet/Commode Transfer (FIM): 5 (SBA, supervision to use grab bar instead of FWW to stand up. Tall toilet, grab bar, FWW) Shower Transfer(FIM): 5 (SBA, shower bench, grab bars, FWW) Other Treatment Pt walked with CGA, FWW to [facility]. He tends to lean when he turns to his L side and is more unsteady than turns to his R. He also bumped items on R side x 3 with FWW throughout ADLS. In [facility], worked with R (medium resistance ) theraputty to find beads, working on coordination. Also did several additional exercises with the putty, working on coordination, not strengthening. pt returned to his room, up in recliner, chair alarm on, all needs met. Education OT Patient Education: Progress toward Goal/Update tx plan, Purpose of tx/ functional activities, Safety issues, Transfer techniques Teaching Recipient: Patient Teaching Methods: Demonstration, Discussion Response to Teaching: Reinforcement Needed OT Short Term Goals Short Term Goals Time Frame: May 11, 2016 Eating(FIM): 5 Grooming(FIM): 5 Bathing(FIM): 4 Upper Body Dressing(FIM): 5 Lower Body Dressing(FIM): 5 Toileting(FIM): 5 Transfers (B,C,W/C) (FIM): 5 Toilet/Commode Transfer(FIM): 5 Shower Transfer(FIM): 4 Additional Short Term Goals: 1-Demonstrate ADL Tasks, 2-Verbalize Understanding , 3-ImproveStrength/Gamaliel 1=Demonstrate adherence to instructed precautions during ADL tasks. 2=Patient will verbalize/demonstrate understanding of assistive devices/ modifications for ADL. 3=Patient will improve strength/tolerance for activity to enable patient to perform ADL's. OT [facility] Goals [facility] Goals Time Frame: May 18, 2016 Eating (FIM): 6 Eating (QC): 6 Groomin Oral Hygiene (QC): 6 Bathing(FIM): 5 Shower/Bathe Self (QC): 5 Upper Body Dressing(FIM): 6 Upper Body Dressing (QC): 6 Lower Body Dressing(FIM): 6 Lower Body Dressing (QC): 6 On/Off Footwear (QC): 6 Toileting(FIM): 6 Toileting Hygiene (QC): 6 Transfers (B,C,W/C) (FIM): 6 Toilet/Commode Transfer(FIM): 6 Toilet/Commode Transfer (QC): 6 Shower Transfer(FIM): 5 Comprehension(FIM): 3 Expression (FIM): 3 Social Interaction(FIM): 4 Additional Goals: 1-Demonstrate ADL Tasks, 2-Verbalize Understanding, 3- ImproveStrength/Gamaliel 1=Demonstrate adherence to instructed precautions during ADL tasks. 2=Patient will verbalize/demonstrate understanding of assistive devices/ modifications for ADL. 3=Patient will improve strength/tolerance for activity to enable patient to perform ADL's. OT Education/Plan Problem List/Assessment Pt. was noted to run into items on the right side. Note right sided neglect. Discharge Recommendations Plan/Recommendations: Continue POC Treatment Plan/Plan of Care Patient would benefit from OT for education, treatment and training to promote independence in ADL's, mobility, safety and/or upper extremity function for ADL' s. Plan of Care: ADL Retraining, Functional Mobility, UE Funct Exercise/Act Treatment Duration: May 18, 2016 Visits Per Week: 10-12 Minutes/Day (M-F): 60-90 Minutes/Day (Sat/[place]ier[place]): PRN Agreement: Yes Rehab Potential: Fair Time/GCodes Start Time: 09:15 Stop Time: 10:30 Total Time Billed (hr/min): 75 Billed Treatment Time visit, 55 minutes ADL, 20 minutes neuromotor DARELL GALVEZ OT May 10, 2016 11:05
--- NOTE | 2016-05-10 12:03 | Physical Therapy Daily Note ---
PT Daily Note-Current Subjective Pt. continues frustrated that he cant communicate well . Does states simple automatic responses however. " I dont know" "Oh boy" Pain Numeric Pain Scale: 0-No Pain Transfers Functional [place] Measure 0=Not Assessed/NA 4=Minimal Assistance 1=Total Assistance 5=Supervision or Setup 2=Maximal Assistance 6=Modified [place] 3=Moderate Assistance 7=Complete IndependenceIRFPAI Quality Coding Scale 6 Independent with activity with or without an assistive device 5 Patient requires set up or clean up by helper. Patient completes activity by themselves 4 Supervision or touching assist (CGA). [place] provide cues , steadying assist 3 The helper provides less than half the effort to complete the activity 2 The helper provides more than half the effort to complete the activity 1 Dependent. The helper does all the effort to complete an activity 7 Patient refused to complete or attempt activity 9 The patient did not perform the activity before the current illness or injury 88 Not attempted due to Medical conditions or safety concerns Transfers (B, C, W/C) (FIM): 4 Scootin Rollin Supine to/from Sit: 4 Sit to/from Stand: 4 Bed to/from Chair: 4 pt. on mat for rolling requires cuing and tactile directioning for all . sup to sit toward right side also requires the same. Gait Training Does the Patient Walk?: Yes Gait (FIM): 3 Distance (FIM): 3=150 ft (150, 75x2,50) Gait Level of Assist: 3 Gait Persons Needed: 1 Gait Assistive Device: FWW heavy list and lean to right during most of gait initially, mirror image used which helps pt. somewhat. pt. was challenged to walk and visually note items on his right side ie refrigerator, stove and medical practice administrator, pt. got 1/3 Exercises Supine Ex: Bridging, Ankle pumps, Quad Set, Rolling, Glut sets, Heel Slides, Short Arc Quads, Scooting, D1 F/E UE, Straight leg raise, D2 F/E UE, Hip abd/add Supine Reps: 12 D1 D2 RLE as well x10 Assessment Current Status: Fair Progress gait balance and quality waxes and wanes PT Short Term Goals Short Term Goals Time Frame: May 11, 2016 Transfers (B,C,W/C) (FIM): 5 Gait (FIM): 5 Distance (FIM): 3=150 ft Stairs (FIM): 4 PT Mixing Machine Operator Goals Mixing Machine Operator Goals PT Half-Way Goals Time Frame: May 25, 2016 Transfers (B,C,W/C) (FIM): 7 Sit to Lying (QC): 6 Lying-Sitting on Side/Bed(QC): 6 Sit to Stand (QC): 6 Rollin Roll Left to Right (QC): 6 Chair/Zne-hb-Aejji Xfer(QC): 6 Car Transfer (QC): 6 Does the Patient Walk: Yes Gait (FIM): 6 Gait distance (FIM): 3=150 ft Walk 10 feet (QC): 6 Walk 10ft-Uneven Surface(QC): 6 Walk 50ft with 2 Turns (QC): 6 Walk 150 ft (QC): 6 Gait Assistive Device: FWW Does the Pt use WC or Scooter?: No Stairs (FIM): 6 # of Steps: 12 1 Step (curb) (QC): 6 4 Steps (QC): 6 12 Steps (QC): 6 Picking up an Object (QC): 6 PT Plan Treatment/Plan Treatment Plan: Continue Plan of Care Treatment Plan: Bed Mobility, Education, Functional Activity Gamaliel, Functional Strength, Group Therapy, Gait, Safety, Therapeutic Exercise, Transfers Treatment Duration: May 25, 2016 Visits Per Week: 10-15 Minutes/Day (M-F): 60-90 Minutes/Day (Sat/Fierro): prn Safety Risks/Education Patient Education: Gait Training, Transfer Techniques, Correct Positioning, Disease Process, Safety Issues Teaching Recipient: Patient Teaching Methods: Demonstration, Discussion Response to Teaching: Verbalize Understanding, Return Demonstration, Reinforcement Needed Time/GCodes Time In: 1115 Time Out: 1200 Total Billed Treatment Time: 45 Total Billed Treatment 1,NM15m,GT15m,EX15m G Codes Necessary: [facility] DEPARTMENT CHAIR May 10, 2016 12:03
--- NOTE | 2016-05-10 15:34 | Physical Therapy Daily Note ---
PT Daily Note-Current Subjective Patient agrees to PT. No c/o at this time. Pain Numeric Pain Scale: 0-No Pain Location: No Pain Reported Mental Status Patient Orientation: Non-Verbal/Aphasic Problem Solvin (elevator button task with verbal instruction by PT for floor #; right and left problem solving) Transfers Functional [place] Measure 0=Not Assessed/NA 4=Minimal Assistance 1=Total Assistance 5=Supervision or Setup 2=Maximal Assistance 6=Modified [place] 3=Moderate Assistance 7=Complete IndependenceIRFPAI Quality Coding Scale 6 Independent with activity with or without an assistive device 5 Patient requires set up or clean up by helper. Patient completes activity by themselves 4 Supervision or touching assist (CGA). [place] provide cues , steadying assist 3 The helper provides less than half the effort to complete the activity 2 The helper provides more than half the effort to complete the activity 1 Dependent. The helper does all the effort to complete an activity 7 Patient refused to complete or attempt activity 9 The patient did not perform the activity before the current illness or injury 88 Not attempted due to Medical conditions or safety concerns Transfers (B, C, W/C) (FIM): 4 Scootin Sit to/from Stand: 4 Sit to Stand (QC): 4 Car Transfer (QC): 4 CGA for safety; noted right neglect with all mobility Gait Training Does the Patient Walk?: Yes Gait (FIM): 4 Distance (FIM): 3=150 ft Distance: 250' x 2; 400' x 3 Walk 150 ft (QC): 4 Gait Level of Assist: 4 Gait Persons Needed: 1 Gait Assistive Device: FWW 4 episodes LOB with self correct to right; slight shuffle gait sequence Exercises NuStep Minutes: 15 (reciprocal movement) NuStep Workload: 4 Assessment Patient tolerated treatment well and is up in recliner with needs met. PT to increase problem solving activity with functional mobility tasks. PT Short Term Goals Short Term Goals Time Frame: May 11, 2016 Transfers (B,C,W/C) (FIM): 5 Gait (FIM): 5 Distance (FIM): 3=150 ft Stairs (FIM): 4 PT Jail Goals Electrical Controls Assembler Goals PT Jail Goals Time Frame: May 25, 2016 Transfers (B,C,W/C) (FIM): 7 Sit to Lying (QC): 6 Lying-Sitting on Side/Bed(QC): 6 Sit to Stand (QC): 6 Rollin Roll Left to Right (QC): 6 Chair/Tkl-yp-Ucrts Xfer(QC): 6 Car Transfer (QC): 6 Does the Patient Walk: Yes Gait (FIM): 6 Gait distance (FIM): 3=150 ft Walk 10 feet (QC): 6 Walk 10ft-Uneven Surface(QC): 6 Walk 50ft with 2 Turns (QC): 6 Walk 150 ft (QC): 6 Gait Assistive Device: FWW Does the Pt use WC or Scooter?: No Stairs (FIM): 6 # of Steps: 12 1 Step (curb) (QC): 6 4 Steps (QC): 6 12 Steps (QC): 6 Picking up an Object (QC): 6 PT Plan Treatment/Plan Treatment Plan: Continue Plan of Care Treatment Plan: Bed Mobility, Education, Functional Activity Gamaliel, Functional Strength, Group Therapy, Gait, Safety, Therapeutic Exercise, Transfers Treatment Duration: May 25, 2016 Visits Per Week: 10-15 Minutes/Day (M-F): 60-90 Minutes/Day (Sat/Fierro): prn Time/GCodes Time In: 1440 Time Out: 1525 Total Billed Treatment Time: 45 Total Billed Treatment 1 visit GT x 2 30 min EX 15 min FORD QUAN PT May 10, 2016 15:33
[2016-05-10 18:08] VITALS: BP 110/67
--- NOTE | 2016-05-10 19:31 | PM & R (SOAP) Progress Note ---
Subjective Subjective/Events-last exam Patient was seen in his room earlier today Patient Min assist for transfers Mod assist for gait with FWW Objective Exam Last Set of Vital Signs Vital Signs Date Time Temp Pulse Resp B/P (MAP) Pulse Ox O2 Delivery O2 Flow Rate FiO2 05/10/16 18:08 96.3 70 16 110/67 98 05/10/16 08:56 Room Air 05/04/16 12:00 95.00 Capillary Refill : I&O Intake and Output 05/10/16 00:00 Intake Total 1390 ml Balance 1390 ml Intake Oral 1390 ml # Voids 7 # Bowel Movements 1 General: Alert, Oriented X3, Cooperative, No Acute Distress HEENT: Atraumatic, PERRLA, EOMI, Mucous Memb Moist/[place] Neck: Supple, No JVD Lungs: Clear to Auscultation Heart: Regular Rate Abdomen: Normal Bowel Sounds, Soft, No Tenderness Extremities: No Edema Neuro: Other (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) Results Lab Laboratory Tests 05/07/16 21:06: Glucometer 200H 05/08/16 05:00: Glucometer 163H 05/08/16 11:09: Glucometer 259H 05/08/16 16:01: Glucometer 167H 05/08/16 20:28: Glucometer 251H 05/09/16 05:30: Glucometer 150H 05/09/16 10:56: Glucometer 200H 05/09/16 16:29: Glucometer 157H 05/09/16 20:11: Glucometer 249H 05/10/16 06:18: Glucometer 143H 05/10/16 11:56: Glucometer 178H 05/10/16 16:00: Glucometer 181H Assessment/Plan Assessment 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
[2016-05-10] MEDS: DONEPEZIL 10 MG (ARICEPT) TAB PO SCH (20:58)
[2016-05-10] MEDS: FINASTERIDE (PROSCAR) 5 MG TAB PO SCH (20:58)
[2016-05-10] MEDS: doxAzosin 4 MG (CARDURA) TAB PO SCH (20:58)
[2016-05-10] MEDS: SIMvastatin 20 MG (ZOCOR) TAB PO SCH (20:58)
[2016-05-11 06:00] VITALS: BP 123/67
[2016-05-11] MEDS: LIDOCAINE 2% VISCOUS 15 ML UDC PO SCH ×3 (06:18→17:49)
[2016-05-11] MEDS: glyBURIDE 5 MG (MICRONASE) TAB PO SCH ×2 (06:18→17:49)
[2016-05-11] MEDS: OMEGA 3 (FISH OIL) 1000 MG CAP PO SCH ×2 (06:18→17:49)
[2016-05-11] MEDS: PHENYTOIN 100 MG (DILANTIN) CAP PO SCH ×2 (08:37→20:03)
[2016-05-11] MEDS: lisINopril 20 MG (ZESTRIL) TAB PO SCH (08:37)
[2016-05-11] MEDS: CLOPIDOGREL 75 MG (PLAVIX) TABLET PO SCH (08:37)
[2016-05-11] MEDS: CYANOCOBALAMIN 500 MCG TAB (VITAMIN B-12) PO SCH (08:37)
[2016-05-11] MEDS: ASPIRIN 81 MG CHEW (CHILDREN'S ASA) PO SCH (08:37)
--- NOTE | 2016-05-11 09:14 | Speech Therapy Daily Note ---
Speech Daily Progress Note Subjective The patient was seated upright in bed upon entrance. The patient was agreeable to speech and language therapy on this date. To note: The patient appeared fatigued throughout the session and demonstrated increased difficulty with language on this date. Additionally, the patient reported the presence of tremors in his right hand and increased weakness. Per patient, the above observations are new upon waking this morning. The patient's RN was notified of the discussion and findings. Objective Orientation: The patient was able to stated his first and last name, the month and the day of week accurately and independently. The patient require initial phoneme prompt for accurate statement of the year. In preparation for group therapy on this date, the patient was asked questions regarding his interests. The patient was unable to independently state his prior profession or favorite cheese. The patient was able to provide his favorite item when items were provided in a field of two. Picture Naming: The patient demonstrated 42% accuracy with picture naming which is a reduction in accuracy in comparison to a previous session. The patient's accuracy increased with initial phoneme cues, as well as, sentence completion cues. Assessment Assessment Current Status: Regressing Treatment Plan Continue Plan of Care Communication Comprehension: 3 Expression: 2 Social Cognition Social Interaction: 3 Problem Solvin Memory: 3 Speech Short Term Goals Short Term Goals Short Term Goals 1. The patient will state names of five common objects and five common pictures with 90% accuracy and mild clinician cueing. 2. The patient will repeat single words and short phrases with 90% accuracy with moderate clinician verbal cueing. 3. The patient will demonstrated 90% accuracy with simple yes/no questions. 4. The patient will display 90% accuracy with simple, one-step commands. Time Frame-STG: Three Weeks Speech [facility] Goals [facility] Goals 1. The patient will demonstrate improved receptive and expressive communication skills for increased safety and function with ADL's. Time Frame: Two Months Comprehension: 3 Expression: 3 Social Interaction: 4 Speech-Plan Treatment Plan Speech Therapy Treatment Plan: Continue Plan of Care Continue skilled speech pathology to target improvement of functional expressive communication. Treatment Duration: June 29, 2016 # of days/week Five. Visits Per Week: Five. Minutes/Day (M-F): 30 to 60 Rehab Potential: Fair Safety Risks/Education Teaching Recipient: Patient Teaching Methods: Discussion Response to Teaching: Verbalize Understanding Education Topics Provided: Progression, Results, Recommendations Time Speech Therapy Time In: 08:15 Speech Therapy Time Out: 09:00 Total Billed Time: 45 Billed Treatment Time 1, AUBREY GALLEGOS May 11, 2016 09:14
--- NOTE | 2016-05-11 10:16 | Occupational Ther Daily Note ---
OT Current Status-Daily Note Subjective Pt seen in room, up in bed, agreeable to OT. Pt indicated that he wanted to brush his teeth and shave but could not verbalize this. No pain mentioned. Appearance Alert, cooperative, makes needs known Mental Status/Objective Functional [place] Measure 0=Not Assessed/NA 4=Minimal Assistance 1=Total Assistance 5=Supervision or Setup 2=Maximal Assistance 6=Modified [place] 3=Moderate Assistance 7=Complete [place] ADL-Treatment Functional [place] Measure 0=Not Assessed/NA 4=Minimal Assistance 1=Total Assistance 5=Supervision or Setup 2=Maximal Assistance 6=Modified [place] 3=Moderate Assistance 7=Complete IndependenceIRFPAI Quality Coding Scale 6 Independent with activity with or without an assistive device 5 Patient requires set up or clean up by helper. Patient completes activity by themselves 4 Supervision or touching assist (CGA). [place] provide cues , steadying assist 3 The helper provides less than half the effort to complete the activity 2 The helper provides more than half the effort to complete the activity 1 Dependent. The helper does all the effort to complete an activity 7 Patient refused to complete or attempt activity 9 The patient did not perform the activity before the current illness or injury 88 Not attempted due to Medical conditions or safety concerns Grooming (FIM): 5 (Supervision for brushing teeth, combing hair, shaving. Used R hand throughout but at times needed to assist it with L hand. Sequenced correctly. One initiation cue. Done seated.) Lower Body Dressing (FIM): 4 (Pt was able to get pants over feet sitting EOB but needed min assist to maintain balance when standing to pull pant up, FWW. He tended to lean to the R. When standing to pull pull pants up from toileting , he did not lean R and stood with light CGA only. ) Toileting (FIM): 4 (CGA when standing to manage clothing. Better balance than when dressing. ) Transfers (B, C, W/C) (FIM): 4 (CGA, skilled cues when sitting down in recliner to reach back before sitting) Toilet/Commode Transfer (FIM): 5 (On/off tall toilet with SBA, using grab bar, FWW. ) Other Treatment Pt walked with CGA, FWW to commons area and sat down on chair without arms. He worked on coordination of R hand, placing and manipulating 1" pegs on a board, with some items placed on his R to address visual neglect. He also was able to place 1" plastic pegs with 1/4" stems, manipulating them slowly but accurately. He includes L hand in process but will do R hand only with cues. Also addressed manipulation with speed. Pt walked back to room with CGA, FWW, with skilled cues needed for hand placement prior to sitting. Chair alarm on, all needs met. Education OT Patient Education: Modified ADL techniques, Progress toward Goal/Update tx plan, Purpose of tx/functional activities, Safety issues, Transfer techniques Teaching Recipient: Patient Teaching Methods: Demonstration, Discussion Response to Teaching: Reinforcement Needed OT Short Term Goals Short Term Goals Time Frame: May 11, 2016 Eating(FIM): 5 Grooming(FIM): 5 Bathing(FIM): 4 Upper Body Dressing(FIM): 5 Lower Body Dressing(FIM): 5 Toileting(FIM): 5 Transfers (B,C,W/C) (FIM): 5 Toilet/Commode Transfer(FIM): 5 Shower Transfer(FIM): 4 Additional Short Term Goals: 1-Demonstrate ADL Tasks, 2-Verbalize Understanding , 3-ImproveStrength/Gamaliel 1=Demonstrate adherence to instructed precautions during ADL tasks. 2=Patient will verbalize/demonstrate understanding of assistive devices/ modifications for ADL. 3=Patient will improve strength/tolerance for activity to enable patient to perform ADL's. OT Skilled Nursing Goals Skilled Nursing Goals Time Frame: May 18, 2016 Eating (FIM): 6 Eating (QC): 6 Groomin Oral Hygiene (QC): 6 Bathing(FIM): 5 Shower/Bathe Self (QC): 5 Upper Body Dressing(FIM): 6 Upper Body Dressing (QC): 6 Lower Body Dressing(FIM): 6 Lower Body Dressing (QC): 6 On/Off Footwear (QC): 6 Toileting(FIM): 6 Toileting Hygiene (QC): 6 Transfers (B,C,W/C) (FIM): 6 Toilet/Commode Transfer(FIM): 6 Toilet/Commode Transfer (QC): 6 Shower Transfer(FIM): 5 Comprehension(FIM): 3 Expression (FIM): 3 Social Interaction(FIM): 4 Additional Goals: 1-Demonstrate ADL Tasks, 2-Verbalize Understanding, 3- ImproveStrength/Gamaliel 1=Demonstrate adherence to instructed precautions during ADL tasks. 2=Patient will verbalize/demonstrate understanding of assistive devices/ modifications for ADL. 3=Patient will improve strength/tolerance for activity to enable patient to perform ADL's. OT Education/Plan Problem List/Assessment Pt. was noted to run into items on the right side. Note right sided neglect. Discharge Recommendations Plan/Recommendations: Continue POC Treatment Plan/Plan of Care Patient would benefit from OT for education, treatment and training to promote independence in ADL's, mobility, safety and/or upper extremity function for ADL' s. Plan of Care: ADL Retraining, Functional Mobility, UE Funct Exercise/Act Treatment Duration: May 18, 2016 Visits Per Week: 10-12 Minutes/Day (M-F): 60-90 Minutes/Day (Sat/[place]): PRN Agreement: Yes Rehab Potential: Fair Time/GCodes Start Time: 09:15 Stop Time: 10:00 Total Time Billed (hr/min): 45 Billed Treatment Time visit, 25 minutes ADL, 20 minutes neuromotor DARELL GALVEZ OT May 11, 2016 10:16
--- NOTE | 2016-05-11 11:51 | PM & R (SOAP) Progress Note ---
Subjective Subjective/Events-last exam Patient was seen in his rrom earlier today Seems upset and RN reports patient concerned re patients speech still being impaired and some tremors DR Mitchell to assess Objective Exam Last Set of Vital Signs Vital Signs Date Time Temp Pulse Resp B/P (MAP) Pulse Ox O2 Delivery O2 Flow Rate FiO2 05/11/16 06:00 96.3 71 20 123/67 95 Room Air Capillary Refill : I&O Intake and Output 05/11/16 00:00 Intake Total 1330 ml Balance 1330 ml Intake Oral 1330 ml # Voids 5 # Bowel Movements 1 General: Alert, Oriented X3, Cooperative, No Acute Distress HEENT: Atraumatic, PERRLA, EOMI, Mucous Memb Moist/[place] Neck: Supple, No JVD Lungs: Clear to Auscultation Heart: Regular Rate Abdomen: Normal Bowel Sounds, Soft, No Tenderness Extremities: No Edema Neuro: Other (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) Results Lab Laboratory Tests 05/08/16 16:01: Glucometer 167H 05/08/16 20:28: Glucometer 251H 05/09/16 05:30: Glucometer 150H 05/09/16 10:56: Glucometer 200H 05/09/16 16:29: Glucometer 157H 05/09/16 20:11: Glucometer 249H 05/10/16 06:18: Glucometer 143H 05/10/16 11:56: Glucometer 178H 05/10/16 16:00: Glucometer 181H 05/10/16 20:15: Glucometer 199H 05/11/16 05:32: Glucometer 136H Assessment/Plan Assessment 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
--- NOTE | 2016-05-11 12:05 | Physical Therapy Daily Note ---
PT Daily Note-Current Subjective Once again pt. tries many times to express himself but is very frustrated. Does express that his grandson attended(s) college of one of the many college shirts he has worn. Frequent look of dispair and disappointment on his face. Pain Numeric Pain Scale: 0-No Pain Appearance worried look, frustrated, right ignoral. It is noted that pts. abdomen is > right than left and protrudes more to right but is soft to palpation and does not produce painful response Mental Status Patient Orientation: Non-Verbal/Aphasic (receptive and expressive) pt. follows commands approx 45-50% of time , speaks appropriately 20% of time he attempts Transfers Functional [place] Measure 0=Not Assessed/NA 4=Minimal Assistance 1=Total Assistance 5=Supervision or Setup 2=Maximal Assistance 6=Modified [place] 3=Moderate Assistance 7=Complete IndependenceIRFPAI Quality Coding Scale 6 Independent with activity with or without an assistive device 5 Patient requires set up or clean up by helper. Patient completes activity by themselves 4 Supervision or touching assist (CGA). [place] provide cues , steadying assist 3 The helper provides less than half the effort to complete the activity 2 The helper provides more than half the effort to complete the activity 1 Dependent. The helper does all the effort to complete an activity 7 Patient refused to complete or attempt activity 9 The patient did not perform the activity before the current illness or injury 88 Not attempted due to Medical conditions or safety concerns Transfers (B, C, W/C) (FIM): 5 Scootin Rollin Supine to/from Sit: 5 Sit to/from Stand: 5 Gait Training Does the Patient Walk?: Yes Gait (FIM): 3 Distance (FIM): 3=150 ft (x2) Gait Level of Assist: 3 Gait Persons Needed: 1 Gait Assistive Device: FWW pts gait improved this date as he did extend right knee and elbow and had better tending to right but still occas needs skilled verbal instruction for safety and staying inside FWW. Stair Training Stair Training: Handrails/: 2 handrails Stairs (FIM): 2 #of Steps: 4 Stairs: Pattern: Reciprocal Level of Assist: 4 pt. reciprocated and did well but needed tactile cues and assist to use UEs and for safety Exercises Supine Ex: Bridging, Ankle pumps, Quad Set, Rolling, Glut sets, Heel Slides, Short Arc Quads, Scooting, Straight leg raise, Hip abd/add Supine Reps: 12 pt. needs repeated and tactile as well as verbal to perform therex NuStep Minutes: 10 NuStep Workload: 3 Neuromuscular nu step with R hand on physician office assistant only and constant verbal reminders to tend to right , look right etc Treatments D1 D2 patterns RLE Assessment Current Status: Fair Progress gait more stable , less listing right PT Short Term Goals Short Term Goals Time Frame: May 11, 2016 Transfers (B,C,W/C) (FIM): 5 Gait (FIM): 5 Distance (FIM): 3=150 ft Stairs (FIM): 4 PT Solvent Process Extractor Operator Goals Solvent Process Extractor Operator Goals PT Solvent Process Extractor Operator Goals Time Frame: May 25, 2016 Transfers (B,C,W/C) (FIM): 7 Sit to Lying (QC): 6 Lying-Sitting on Side/Bed(QC): 6 Sit to Stand (QC): 6 Rollin Roll Left to Right (QC): 6 Chair/Qug-er-Zvyqv Xfer(QC): 6 Car Transfer (QC): 6 Does the Patient Walk: Yes Gait (FIM): 6 Gait distance (FIM): 3=150 ft Walk 10 feet (QC): 6 Walk 10ft-Uneven Surface(QC): 6 Walk 50ft with 2 Turns (QC): 6 Walk 150 ft (QC): 6 Gait Assistive Device: FWW Does the Pt use WC or Scooter?: No Stairs (FIM): 6 # of Steps: 12 1 Step (curb) (QC): 6 4 Steps (QC): 6 12 Steps (QC): 6 Picking up an Object (QC): 6 PT Plan Treatment/Plan Treatment Plan: Continue Plan of Care Treatment Plan: Bed Mobility, Education, Functional Activity Gamaliel, Functional Strength, Group Therapy, Gait, Safety, Therapeutic Exercise, Transfers Treatment Duration: May 25, 2016 Visits Per Week: 10-15 Minutes/Day (M-F): 60-90 Minutes/Day (Sat/[place]): prn Safety Risks/Education Patient Education: Gait Training, Correct Positioning, Disease Process, Safety Issues Teaching Recipient: Patient Teaching Methods: Demonstration, Discussion Response to Teaching: Reinforcement Needed Time/GCodes Time In: 1100 Time Out: 1200 Total Billed Treatment Time: 60 Total Billed Treatment 1,FA15m,GT15m,EX30m G Codes Necessary: AMNA Espinal FOUNTAIN WORKER May 11, 2016 12:05
--- NOTE | 2016-05-11 14:49 | Therapy Group Daily Note ---
Therapy Daily Group Note Patient Education Topic Fall Prevention Exercises LE Seated Exercise, UE Exercise Other/Notes Pt was a somewhat active participant in OT/PT group. He was unable to verbally introduce himself to the group due to expressive aphasia and attended to education/discussion on fall prevention and home safety but did not verbalize. At the end of the discussion, he was not able to identify at least one change that he has made in his home to be safer but did acknowledge that he has made some of the changed discussed. He also did seated UE and LE exercises but needed some physical assistance to complete several of the exercises. He needed mod assist to walk to the group with FWW, leaning to the right, but required the help of three people to get him back into the wheelchair after group. He was unable to stand on his R leg. Max assist of two people to transfer him from w/c to bed. Nursing notified and participated in transfers. Pt left up in bed, 4 rails up. Start Time: 13:00 Stop Time: 14:15 Total Billed Treatment Time: 75 Total Billed Treatment visit, 75 minutes group DARELL GALVEZ OT May 11, 2016 14:49
--- NOTE | 2016-05-11 15:48 | Diagnostic Imaging Report ---
PROCEDURE: MR imaging of the brain without contrast. TECHNIQUE: Multiplanar, multisequence MR imaging of the brain was performed without contrast. INDICATION: Right-sided weakness. Worsening symptoms. Rule out new extension of infarct seen on 05/03/2016. FINDINGS: The previously seen areas of diffusion restriction are again noted in the periventricular white matter on the right side with slightly increased more posteriorly with a new acute lacunar infarct in the periventricular white matter at the level of the atrium of the right lateral ventricle. The new area affected is 1.1 cm in size. There is otherwise no significant change from the previous exam with multiple acute to subacute lacunar infarcts in the periventricular white matter on the left side. No acute infarct in the right side of the brain. There is no large vascular territory involvement with an infarct seen as well. There is background periventricular and deep white matter hypodensities compatible with chronic microvascular ischemic changes. The pituitary gland is normal in size. No hypothalamic or pineal region mass. There is no hydrocephalus. No extra-axial fluid collection seen. The central vascular flow-voids appear grossly unremarkable. The internal auditory canals and inner ear structures appear unremarkable. IMPRESSION: There is a new component of acute lacunar infarct in the posterior left periventricular white matter seen in addition to the acute to subacute patchy left periventricular white matter infarcts seen on 05/03/2016. Dr. Rafi Alvarado was called about findings at time of dictation. Dictated by: Dictated on workstation # [id number]
[2016-05-11 15:51] LABS: BASOPHILS % (AUTO) 1 % (0-10); EOSINOPHILS # (AUTO) 0.2 10^3/uL (0.0-0.3); EOSINOPHILS % (AUTO) 2 % (0-10); LYMPHOCYTES # (AUTO) 1.8 X 10^3 (1.0-4.0); LYMPHOCYTES % (AUTO) 27 % (12-44); MEAN CORPUSCULAR HEMOGLOBIN 37 PG (25-34); MEAN CORPUSCULAR HGB CONC 37 G/DL (32-36); MEAN CORPUSCULAR VOLUME 100 FL (80-99); MEAN PLATELET VOLUME 9.8 FL (7.4-10.4); MONOCYTES # (AUTO) 0.8 X 10^3 (0.0-1.0); MONOCYTES % (AUTO) 12 % (0-12); NEUTROPHILS # (AUTO) 3.9 X 10^3 (1.8-7.8); NEUTROPHILS % (AUTO) 59 % (42-75); PLATELET COUNT 162 10^3/uL (130-400); RED BLOOD COUNT 4.02 10^6/uL (4.35-5.85); RED CELL DISTRIBUTION WIDTH 12.5 % (10.0-14.5); WHITE BLOOD COUNT 6.6 10^3/uL (4.3-11.0)
[2016-05-11 16:01] LABS: ALANINE AMINOTRANSFERASE 42 U/L (0-55); ALBUMIN 3.9 G/DL (3.2-4.5); ANION GAP 5 MMOL/L (5-14); ASPARTATE AMINO TRANSFERASE 24 U/L (5-34); BILIRUBIN,TOTAL 0.5 MG/DL (0.1-1.0); BLOOD UREA NITROGEN 13 MG/DL (7-18); BUN/CREATININE RATIO 15; CALCIUM 8.6 MG/DL (8.5-10.1); CARBON DIOXIDE 29 MMOL/L (21-32); CHLORIDE 103 MMOL/L (98-107); CREATININE SERUM 0.86 MG/DL (0.60-1.30); GFR ESTIMATED > 60; GLUCOSE 185 MG/DL (70-105); POTASSIUM 4.6 MMOL/L (3.6-5.0); SODIUM 137 MMOL/L (135-145); TOTAL PROTEIN 6.8 G/DL (6.4-8.2)
[2016-05-11 18:00] VITALS: BP 123/67
[2016-05-11] MEDS: DONEPEZIL 10 MG (ARICEPT) TAB PO SCH (20:03)
[2016-05-11] MEDS: FINASTERIDE (PROSCAR) 5 MG TAB PO SCH (20:03)
[2016-05-11] MEDS: SIMvastatin 20 MG (ZOCOR) TAB PO SCH (20:03)
[2016-05-11] MEDS: doxAzosin 4 MG (CARDURA) TAB PO SCH (20:03)
[2016-05-12 05:13] VITALS: BP 121/62
[2016-05-12] MEDS: glyBURIDE 5 MG (MICRONASE) TAB PO SCH ×2 (06:01→16:51)
[2016-05-12] MEDS: LIDOCAINE 2% VISCOUS 15 ML UDC PO SCH ×3 (06:01→16:51)
[2016-05-12] MEDS: OMEGA 3 (FISH OIL) 1000 MG CAP PO SCH ×2 (06:01→16:51)
--- NOTE | 2016-05-12 08:17 | PM & R (SOAP) Progress Note ---
Subjective Subjective/Events-last exam Patient was seen in his room this AM Sppech improved to baseline at least grossly-Will f/u with ST re her impression-Dr Brizuela Cardiology here to see re cardiac w/u fro repeated stroke Objective Exam Last Set of Vital Signs Vital Signs Date Time Temp Pulse Resp B/P (MAP) Pulse Ox O2 Delivery O2 Flow Rate FiO2 05/12/16 05:13 98.7 83 18 121/62 95 Room Air Capillary Refill : I&O Intake and Output 05/12/16 00:00 Intake Total 650 ml Balance 650 ml Intake Oral 650 ml # Voids 6 # Bowel Movements 1 General: Alert, Oriented X3, Cooperative, No Acute Distress HEENT: Atraumatic, PERRLA, EOMI, Mucous Memb Moist/[place] Neck: Supple, No JVD Lungs: Clear to Auscultation Heart: Regular Rate Abdomen: Normal Bowel Sounds, Soft, No Tenderness Extremities: No Edema Neuro: Other (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) Results Lab Laboratory Tests 05/09/16 10:56: Glucometer 200H 05/09/16 16:29: Glucometer 157H 05/09/16 20:11: Glucometer 249H 05/10/16 06:18: Glucometer 143H 05/10/16 11:56: Glucometer 178H 05/10/16 16:00: Glucometer 181H 05/10/16 20:15: Glucometer 199H 05/11/16 05:32: Glucometer 136H 05/11/16 15:30: White Blood Count 6.6, Red Blood Count 4.02L, Hemoglobin 14.9, Hematocrit 40, Mean Corpuscular Volume 100H, Mean Corpuscular Hemoglobin 37H, Mean Corpuscular Hemoglobin Concent 37H, Red Cell Distribution Width 12.5, Platelet Count 162, Mean Platelet Volume 9.8, Neutrophils (%) (Auto) 59, Lymphocytes (%) (Auto) 27, Monocytes (%) (Auto) 12, Eosinophils (%) (Auto) 2, Basophils (%) (Auto) 1, Neutrophils # (Auto) 3.9, Lymphocytes # (Auto) 1.8, Monocytes # (Auto) 0.8, Eosinophils # (Auto) 0.2, Basophils # (Auto) 0.0, Sodium Level 137, Potassium Level 4.6, Chloride Level 103, Carbon Dioxide Level 29, Anion Gap 5, Blood Urea Nitrogen 13, Creatinine 0.86, Estimat Glomerular Filtration Rate > 60, BUN/ Creatinine Ratio 15, Glucose Level 185H, Calcium Level 8.6, Total Bilirubin 0.5 , Aspartate Amino Transf (AST/SGOT) 24, Alanine Aminotransferase (ALT/SGPT) 42, Alkaline Phosphatase 51, Total Protein 6.8, Albumin 3.9 05/11/16 20:53: Glucometer 234H 05/12/16 05:59: Glucometer 160H Assessment/Plan Assessment 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
[2016-05-12] MEDS: CYANOCOBALAMIN 500 MCG TAB (VITAMIN B-12) PO SCH (08:42)
[2016-05-12] MEDS: PHENYTOIN 100 MG (DILANTIN) CAP PO SCH ×2 (08:42→20:31)
[2016-05-12] MEDS: ASPIRIN 81 MG CHEW (CHILDREN'S ASA) PO SCH (08:42)
[2016-05-12] MEDS: CLOPIDOGREL 75 MG (PLAVIX) TABLET PO SCH (08:42)
[2016-05-12] MEDS: lisINopril 20 MG (ZESTRIL) TAB PO SCH (08:43)
--- NOTE | 2016-05-12 08:49 | Consultation-Cardiology ---
HPI-Cardiology Cardiology Consultation Date of Consultation 05/12/16 Date of Admission Indication: CVA HPI Patient is a very pleasant 86 yo male with past history of IA in the remote past , HTN, HLP. Has been in ARU after having CVA with dysphagia and aphasia. Patient began having worsening of his symptoms. Repeat MRI done 04/14/2016 revealed new area of infarct. Upon interviewing the patient he denies any chest pain or palpitations. Denies any dizziness or lightheadedness. Still having speech difficulties. Next Patient was seen and evaluated with Yaa, unable to provide full history due to speech impairment with his stroke, has history of coronary artery disease , hypertension and hyperlipidemia. Admitted with CVA and aphasia. On echocardiogram had mildly enlarged left atrium. No arrhythmia was detected, has been on aspirin and Plavix. Home Medications & Allergies Allergies: Coded Allergies: No Known Drug Allergies (Unverified , 01/16/11) Home Medication List Reviewed: Yes ULL-Svhhjj-Mpcoga Hx Patient Social History Employed/Student: retired Alcohol Use: Occasionally Uses Recreational Drug Use: No Smoking Status: Former Smoker Recent Foreign Travel: No Recent Infectious Disease Expo: No Recent Hopitalizations: No Physical Abuse Screen: No Sexual Abuse: No Immunizations Up To Date Date of Pneumonia Vaccine: Dec 15, 2015 Date of Influenza Vaccine: Oct 15, 2015 Past Medical History CVA, hypertension, hyperlipidemia. Family Medical History Significant Family History: No Pertinent Family Hx Family History: Diabetes mellitus 19 MOTHER FH: congestive heart failure 19 MOTHER Headache disorder Hypertension 19 FATHER Myocardial infarction 19 FATHER Constitutional: No diaphoresis, No dizziness, No fever, malaise, No weakness EENTM: other (dysphagia, aphasia), No blurred vision, No double vision, No vision loss Respiratory: No cough, No dyspnea on exertion Cardiovascular: No chest pain, No edema, No palpitations Gastrointestinal: No abdominal pain, No constipation, No diarrhea, dysphagia Genitourinary: No discharge, No frequency Musculoskeletal: No back pain, No joint pain Skin: No lesions, No rash Psychiatric/Neurological: Denies Anxiety, Denies Depressed Reviewed Test Results Reviewed Test Results Lab Laboratory Tests 05/11/16 15:30: White Blood Count 6.6, Red Blood Count 4.02L, Hemoglobin 14.9, Hematocrit 40, Mean Corpuscular Volume 100H, Mean Corpuscular Hemoglobin 37H, Mean Corpuscular Hemoglobin Concent 37H, Red Cell Distribution Width 12.5, Platelet Count 162, Mean Platelet Volume 9.8, Neutrophils (%) (Auto) 59, Lymphocytes (%) (Auto) 27, Monocytes (%) (Auto) 12, Eosinophils (%) (Auto) 2, Basophils (%) (Auto) 1, Neutrophils # (Auto) 3.9, Lymphocytes # (Auto) 1.8, Monocytes # (Auto) 0.8, Eosinophils # (Auto) 0.2, Basophils # (Auto) 0.0, Sodium Level 137, Potassium Level 4.6, Chloride Level 103, Carbon Dioxide Level 29, Anion Gap 5, Blood Urea Nitrogen 13, Creatinine 0.86, Estimat Glomerular Filtration Rate > 60, BUN/ Creatinine Ratio 15, Glucose Level 185H, Calcium Level 8.6, Total Bilirubin 0.5 , Aspartate Amino Transf (AST/SGOT) 24, Alanine Aminotransferase (ALT/SGPT) 42, Alkaline Phosphatase 51, Total Protein 6.8, Albumin 3.9 05/11/16 20:53: Glucometer 234H 05/12/16 05:59: Glucometer 160H ECG Impression ECG Initial ECG Rhythm: Normal Sinus Physical Exam Vital Signs Vital Sign - Last 12Hours 05/06/16 05:13 Temp 97.0 Pulse 61 Resp 18 B/P (MAP) 124/57 Pulse Ox 96 O2 Delivery Room Air Capillary Refill : General Appearance: No Apparent Distress, WD/WN HEENT: PERRL/EOMI Neck: Non Tender, Supple Respiratory: Chest Non Tender, Lungs Clear, Normal Breath Sounds Cardiovascular: Regular Rate, Rhythm, No Edema, No Gallop, Normal Peripheral Pulses Gastrointestinal: No Pulsatile Mass, Non Tender, Soft Rectal: Deferred Back: No CVA Tenderness Extremity: Non Tender, No Calf Tenderness Neurologic/Psychiatric: Alert, Oriented x3, Aphasia, Facial Droop Skin: Normal Color, Warm/Dry A/P-Cardiology Admission Diagnosis CVA HTN HLP CAD Assessment/Plan CVA-patient having some dysphagia, expressive aphasia. Patient has been in the acute rehabilitation unit receiving physical therapy, had worsening of his symptoms. Repeat MRI of brain revealed no area of infarct. Has been maintained on Plavix and aspirin. Unknown etiology. Discussed management plan with patient. 2-D echocardiogram done 05/03/2016 revealed mild left atrial dilatation of 4.3. I will place him on telemetry, planning for GIANCARLO to be done tomorrow morning. Consider Linq implantation for further monitoring for atrial fibrillation. Coronary artery disease-patient reports history of IA in the remote past. 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 I will try to obtain records. States he has not seen his assistant plant control operator in a long time. Hypertension-controlled. Continue to monitor blood pressure/heart rate Hyperlipidemia-maintained on statin. Diabetes mellitus-managed by primary care physician Thank you for allowing us to participate in the management of . This is Yaa Catalan PA-C, acting as a scribe for Dr. Brizuela. Patient was seen and evaluated with Yaa, on examination lungs were clear to auscultation bilaterally, heart is regular rate and rhythm. Had CVA of unknown origin, I will place him on telemetry for the next 24-48 hours and monitor for arrhythmia, I will evaluate GIANCARLO, continue on aspirin and Plavix and consider a reveal device implantation if no other sources of stroke were found. Continue to monitor blood pressure and lipids. Tight control on his diabetes. I interviewed the patient and perform physical examination with Yaa, discussed the management plan and agree with the current scribe, I made few modification to the note and used Italic Font Clinical Quality Measures DVT/VTE Risk/Contraindication: Risk Factor Score Per Nursin RFS Level Per Nursing on Admit: 4+=Very High YAA DONOVAN May 12, 2016 08:49 GIOVANNY BRIZUELA MD May 12, 2016 09:38
--- NOTE | 2016-05-12 10:14 | Speech Therapy Daily Note ---
Speech Daily Progress Note Subjective The patient was seated upright in recliner upon entrance. The patient was alert , appropriate, and agreeable to the speech and language treatment session. To note: The patient demonstrated a decline in function during the previous session, due to this, a MRI was complete to assess for changes. The patient demonstrated the presence of a new CVA. Please see MRI results below for additional information. Due to this, the patient's language function will be reassessed for accuracy of treatment goals. Brain MRI: 05/11/16: The previously seen areas of diffusion restriction are again noted in the periventricular white matter on the right side with slightly increased more posteriorly with a new acute lacunar infarct in the periventricular white matter at the level of the atrium of the right lateral ventricle. The new area affected is 1.1 cm in size. There is otherwise no significant change from the previous exam with multiple acute to subacute lacunar infarcts in the periventricular white matter on the left side. Objective Orientation: The patient was able to state his full name, however, could not provide age or date. The patient required location orientation questions to be asked in yes/no format. Once presented with yes/no and in a field of two, the patient was able to identify his location of the hospital. The patient could state the month and day of week, however, could not state the year. Automatics: The patient was unable to complete automatic phrases (counting to ten, days of the week) regardless of maximum clinician verbal cueing. Attention and Memory: The patient was able to recall five digits forward. The patient was unable to recall three single words following a five minute delay. Language: The patient was able to repeat short, simple phrases. The patient was unable to state similarities between two items, list three fruits, complete word -finding activity, or describe the sequence of a common event. The patient was able to name three of five black and white photographs. Situation Problem Solving: The patient was unable to state appropriate solutions to simple safety problem solving. Auditory Comprehension: The patient demonstrated 50% accuracy with simple yes/ no questions. The patient was able to follow single, one-step commands, however , was unable to follow simple two-step commands. Confrontational Naming: The patient demonstrated 75% accuracy with naming items located in his room. Visuospatial: The patient was unable to complete clock drawing task. Patient was able to scan multiple letters for identification of a specific letter ( complete left and right attention noted). The patient has demonstrated a decline in function in expressive and receptive language, as well as, cognition. Assessment Assessment Current Status: Regressing Treatment Plan Modify Plan, See Comments (Due to a decline in status, the patient's short term goals have been modified.) Communication Comprehension: 2 Expression: 1 Social Cognition Social Interaction: 2 Problem Solvin Speech Short Term Goals Short Term Goals Short Term Goals 1. The patient will state names of five common objects and five common pictures with 80% accuracy and moderate clinician cueing. 2. The patient will repeat single words and short phrases with 70% accuracy with moderate clinician verbal cueing. 3. The patient will demonstrated 90% accuracy with simple yes/no questions. 4. The patient will display 90% accuracy with simple, one-step commands. Time Frame-STG: Three Weeks Speech Exterminator Helper Goals Longterm Goals 1. The patient will demonstrate improved receptive and expressive communication skills for increased safety and function with ADL's. Time Frame: Two Months Comprehension: 3 Expression: 3 Social Interaction: 4 Speech-Plan Treatment Plan Speech Therapy Treatment Plan: Continue Plan of Care Continue skilled speech therapy for improved receptive and expressive language. Treatment Duration: June 29, 2016 # of days/week Five. Visits Per Week: Five. Minutes/Day (M-F): 30 to 60 Rehab Potential: Fair Safety Risks/Education Teaching Recipient: Patient Teaching Methods: Discussion Response to Teaching: Verbalize Understanding Education Topics Provided: Results, Recommendations Time Speech Therapy Time In: 08:30 Speech Therapy Time Out: 09:15 Total Billed Time: 45 Billed Treatment Time 1FRANNIE ELIZABETH May 12, 2016 10:14
--- NOTE | 2016-05-12 11:45 | Occupational Ther Daily Note ---
OT Current Status-Daily Note Subjective Pt seen in room, up in recliner, agreeable to OT. Appearance Initially seemed sad, with flattened affect but became more animated. Mental Status/Objective Functional [place] Measure 0=Not Assessed/NA 4=Minimal Assistance 1=Total Assistance 5=Supervision or Setup 2=Maximal Assistance 6=Modified [place] 3=Moderate Assistance 7=Complete [place] ADL-Treatment Pt choked a little after brushing teeth. Unknown if this was from swallowing his own saliva or from water in mouth from rinsing after brushing. Information shared with speech therapy. Functional [place] Measure 0=Not Assessed/NA 4=Minimal Assistance 1=Total Assistance 5=Supervision or Setup 2=Maximal Assistance 6=Modified [place] 3=Moderate Assistance 7=Complete IndependenceIRFPAI Quality Coding Scale 6 Independent with activity with or without an assistive device 5 Patient requires set up or clean up by helper. Patient completes activity by themselves 4 Supervision or touching assist (CGA). [place] provide cues , steadying assist 3 The helper provides less than half the effort to complete the activity 2 The helper provides more than half the effort to complete the activity 1 Dependent. The helper does all the effort to complete an activity 7 Patient refused to complete or attempt activity 9 The patient did not perform the activity before the current illness or injury 88 Not attempted due to Medical conditions or safety concerns Grooming (FIM): 5 (Pt removed and reapplied cap to toothpaste. Brushed teeth using R hand. Setup, supervision. Washed face and hands with washcloth, setup) Upper Body (FIM): 5 (Doffed and donned t shirt with setup. ) Lower Body Dressing (FIM): 4 (Able to get pants over feet and pull them up but CGA needed whenstanding and he tends to lean over to the right side) Transfers (B, C, W/C) (FIM): 5 (Able to get up out of recliner with a little difficulty but able to do it. Cues for hand placement) Other Treatment 05-09-16 scores: Polishing Wheel Setter: R 60, 56 58 (average (58 lb) L 54, 54, 60 (average (average 56 lb.) 9 Hole Peg test: R 2:20 L :50 05-12-16 scores: Polishing Wheel Setter: R 62, 63, 59 (average 61 lb) L 64, 65, 65 (average 65 lb) 9 Hole Peg test: R 1:20 L :43 Polishing Wheel Setter strength scores have improved from previous testing. Speed has also increased with 9 hole peg test. Functionally, R hand is a little more clumsy today but pt still able to use it during ADLs. Pt worked on table top coordination activity with dominoes. He had difficulty picking up the dominoes because they were flat but was able to place them, with occasional cues for matching or for looking toward the right side to find items. Pleased that he won the game! Pt walked to and from commons area with min to CGA assistance, seeming to lean to the right side a little more, FWW. Pt returned to room, up in recliner, all needs met. Education OT Patient Education: Modified ADL techniques, Progress toward Goal/Update tx plan, Purpose of tx/functional activities, Transfer techniques Teaching Recipient: Patient Teaching Methods: Demonstration, Discussion Response to Teaching: Verbalize Understanding, Return Demonstration, Reinforcement Needed OT Short Term Goals Short Term Goals Time Frame: May 11, 2016 Eating(FIM): 5 Grooming(FIM): 5 Bathing(FIM): 4 Upper Body Dressing(FIM): 5 Lower Body Dressing(FIM): 5 Toileting(FIM): 5 Transfers (B,C,W/C) (FIM): 5 Toilet/Commode Transfer(FIM): 5 Shower Transfer(FIM): 4 Additional Short Term Goals: 1-Demonstrate ADL Tasks, 2-Verbalize Understanding , 3-ImproveStrength/Gamaliel 1=Demonstrate adherence to instructed precautions during ADL tasks. 2=Patient will verbalize/demonstrate understanding of assistive devices/ modifications for ADL. 3=Patient will improve strength/tolerance for activity to enable patient to perform ADL's. OT Retirement Goals Local Sales Manager Goals Time Frame: May 18, 2016 Eating (FIM): 6 Eating (QC): 6 Groomin Oral Hygiene (QC): 6 Bathing(FIM): 5 Shower/Bathe Self (QC): 5 Upper Body Dressing(FIM): 6 Upper Body Dressing (QC): 6 Lower Body Dressing(FIM): 6 Lower Body Dressing (QC): 6 On/Off Footwear (QC): 6 Toileting(FIM): 6 Toileting Hygiene (QC): 6 Transfers (B,C,W/C) (FIM): 6 Toilet/Commode Transfer(FIM): 6 Toilet/Commode Transfer (QC): 6 Shower Transfer(FIM): 5 Comprehension(FIM): 3 Expression (FIM): 3 Social Interaction(FIM): 4 Additional Goals: 1-Demonstrate ADL Tasks, 2-Verbalize Understanding, 3- ImproveStrength/Gamaliel 1=Demonstrate adherence to instructed precautions during ADL tasks. 2=Patient will verbalize/demonstrate understanding of assistive devices/ modifications for ADL. 3=Patient will improve strength/tolerance for activity to enable patient to perform ADL's. OT Education/Plan Problem List/Assessment Pt. was noted to run into items on the right side. Note right sided neglect. Discharge Recommendations Plan/Recommendations: Continue POC Treatment Plan/Plan of Care Patient would benefit from OT for education, treatment and training to promote independence in ADL's, mobility, safety and/or upper extremity function for ADL' s. Plan of Care: ADL Retraining, Functional Mobility, UE Funct Exercise/Act Treatment Duration: May 18, 2016 Visits Per Week: 10-12 Minutes/Day (M-F): 60-90 Minutes/Day (Sat/Fierro): PRN Agreement: Yes Rehab Potential: Fair Time/GCodes Start Time: 09:45 Stop Time: 11:00 Total Time Billed (hr/min): 75 Billed Treatment Time visit, 35 minutes ADL, 40 minutes neuromotor DARELL GALVEZ OT May 12, 2016 11:45
--- NOTE | 2016-05-12 11:51 | Progress Note-Hospitalist ---
Progress Note Progress Notes/Assess & Plan Date Seen 05/12/16 Diagonsis/Assessment & Plan Had more issues with a aphasia that was similar to when he presented although he 's been taking aspirin and Plavix for additional prevention but MRI was repeated and it showed a new acute lacunar infarct I consulted Dr. Brizuela who will evaluate a GIANCARLO tomorrow to see if there is any thrombosis in the left atrium slightly enlarged on echocardiogram if nothing is identified will place loop recorder reveal device and contemplate additional anticoagulation I saw the patient and he is certainly more aphasic today but this is a very difficult situation considering his advanced age at 86 and additional comorbidities the strokes could continue to occur and be more severe in nature causing more debility abdomen fever, vital signs stable, pleasant, up in chair Mostly aphasic and more so today Regular rate and rhythm, clear to auscultation bilaterally No edema Assessment: 1.previous CVA as characterized by speech abnormality and swallowing difficulties with another acute lacunar infarct prompting consultation with cardiology and GIANCARLO will be performed tomorrow and possible loop recorder implantation 2.questionable recent increase in symptomatology but now more aphasic since yesterday 3.past history of myocardial infarction. 4.hypertension. 5.diabetes mellitus type II pyc-cprmbky-kyuxxojin. 6.peripheral neuropathy Plan: Pain management Continue rehab recovery GIANCARLO tomorrow with loop recorder implantation Appreciate cardiology input MARYAM MANZO DO May 12, 2016 11:51
--- NOTE | 2016-05-12 12:06 | Physical Therapy Daily Note ---
PT Daily Note-Current Subjective Pt. expresses that he is fatigued, shakes his head no and opens only one eye keeping one closed at times. Pain Numeric Pain Scale: 0-No Pain Mental Status Patient Orientation: Non-Verbal/Aphasic minimally verbal Transfers Functional [place] Measure 0=Not Assessed/NA 4=Minimal Assistance 1=Total Assistance 5=Supervision or Setup 2=Maximal Assistance 6=Modified [place] 3=Moderate Assistance 7=Complete IndependenceIRFPAI Quality Coding Scale 6 Independent with activity with or without an assistive device 5 Patient requires set up or clean up by helper. Patient completes activity by themselves 4 Supervision or touching assist (CGA). [place] provide cues , steadying assist 3 The helper provides less than half the effort to complete the activity 2 The helper provides more than half the effort to complete the activity 1 Dependent. The helper does all the effort to complete an activity 7 Patient refused to complete or attempt activity 9 The patient did not perform the activity before the current illness or injury 88 Not attempted due to Medical conditions or safety concerns Transfers (B, C, W/C) (FIM): 4 Scootin Rollin Supine to/from Sit: 4 Sit to/from Stand: 4 Bed to/from Chair: 4 pt. listing to right at times heavily today during TRFs. sup to sit to right with min assist and instruction to tend appropriately Gait Training Does the Patient Walk?: Yes Gait (FIM): 2 Distance (FIM): 1=352-14 ft (75ftx4) Gait Level of Assist: 3 Gait Persons Needed: 1 (also safe to have w/c follow up as pt waxes and wanes with heavy lean to right) Gait Assistive Device: FWW poor geology professor on FWW right as well as poor extension right knee in stance phase Exercises Supine Ex: Bridging, Ankle pumps, Quad Set, Rolling, Lower trunk rotation, Heel Slides, Short Arc Quads, Scooting, Straight leg raise, Hip abd/add Supine Reps: 15 Standing: Side steps, Weight shifts Standing Reps: 10 use of mirror at parallel bars for feedback and chair behind for safety. pt. with some improvement with mirror Assessment Current Status: Fair Progress dependent for all mobility, communicated with OT re: possible double vision PT Short Term Goals Short Term Goals Time Frame: May 11, 2016 Transfers (B,C,W/C) (FIM): 5 Gait (FIM): 5 Distance (FIM): 3=150 ft Stairs (FIM): 4 PT Detention Goals Maintenance Worker Municipal Goals PT Detention Goals Time Frame: May 25, 2016 Transfers (B,C,W/C) (FIM): 7 Sit to Lying (QC): 6 Lying-Sitting on Side/Bed(QC): 6 Sit to Stand (QC): 6 Rollin Roll Left to Right (QC): 6 Chair/Ukr-ol-Yyikq Xfer(QC): 6 Car Transfer (QC): 6 Does the Patient Walk: Yes Gait (FIM): 6 Gait distance (FIM): 3=150 ft Walk 10 feet (QC): 6 Walk 10ft-Uneven Surface(QC): 6 Walk 50ft with 2 Turns (QC): 6 Walk 150 ft (QC): 6 Gait Assistive Device: FWW Does the Pt use WC or Scooter?: No Stairs (FIM): 6 # of Steps: 12 1 Step (curb) (QC): 6 4 Steps (QC): 6 12 Steps (QC): 6 Picking up an Object (QC): 6 PT Plan Treatment/Plan Treatment Plan: Continue Plan of Care Treatment Plan: Bed Mobility, Education, Functional Activity Gamaliel, Functional Strength, Group Therapy, Gait, Safety, Therapeutic Exercise, Transfers Treatment Duration: May 25, 2016 Visits Per Week: 10-15 Minutes/Day (M-F): 60-90 Minutes/Day (Sat/Fierro): prn Safety Risks/Education Patient Education: Gait Training, Transfer Techniques, Correct Positioning, Safety Issues Teaching Recipient: Patient Teaching Methods: Demonstration Response to Teaching: Return Demonstration (60% of time), Reinforcement Needed Time/GCodes Time In: 1100 Time Out: 1200 Total Billed Treatment Time: 60 Total Billed Treatment 1,NM25M,gt15M,ex20M G Codes Necessary: AMNA Espinal WARE FINISHER May 12, 2016 12:06
--- NOTE | 2016-05-12 13:49 | Physical Therapy Daily Note ---
PT Daily Note-Current Subjective Pt. in recliner head down, seemingly asleep. When awakened looks up and shakes his head 'no'. Shakes head 'yes' when after several attempts at standing with difficulty, if he would like to go to bed. Pain Numeric Pain Scale: 0-No Pain Mental Status Patient Orientation: Non-Verbal/Aphasic Pt. indicates with slight nod that he is not in pain but acknowledges as well with a nod that he feels foggy Transfers Functional [place] Measure 0=Not Assessed/NA 4=Minimal Assistance 1=Total Assistance 5=Supervision or Setup 2=Maximal Assistance 6=Modified [place] 3=Moderate Assistance 7=Complete IndependenceIRFPAI Quality Coding Scale 6 Independent with activity with or without an assistive device 5 Patient requires set up or clean up by helper. Patient completes activity by themselves 4 Supervision or touching assist (CGA). [place] provide cues , steadying assist 3 The helper provides less than half the effort to complete the activity 2 The helper provides more than half the effort to complete the activity 1 Dependent. The helper does all the effort to complete an activity 7 Patient refused to complete or attempt activity 9 The patient did not perform the activity before the current illness or injury 88 Not attempted due to Medical conditions or safety concerns sit to stand trials x 5 with mod assist and upon stance listing heavy to right, pt. required mod assist chair and 8 steps to bed Gait Training Gait Assistive Device: FWW 8-10 steps with heavy list right and required assist to stablize right knee into extension and utilize right hand on FWW Exercises Supine Ex: Bridging, Ankle pumps, Quad Set, Heel Slides, Straight leg raise, Hip abd/add Supine Reps: 10 pt. continues with great difficulty following directions and completing therex Assessment Current Status: Fair Progress very fatigued, more dependent this PM, pale manrique color, BP116/72, HR 73, O2sats 94% PT Short Term Goals Short Term Goals Time Frame: May 11, 2016 Transfers (B,C,W/C) (FIM): 5 Gait (FIM): 5 Distance (FIM): 3=150 ft Stairs (FIM): 4 PT Snf Goals Geologic Technician Goals PT Geologic Technician Goals Time Frame: May 25, 2016 Transfers (B,C,W/C) (FIM): 7 Sit to Lying (QC): 6 Lying-Sitting on Side/Bed(QC): 6 Sit to Stand (QC): 6 Rollin Roll Left to Right (QC): 6 Chair/Ohi-cj-Ljvxn Xfer(QC): 6 Car Transfer (QC): 6 Does the Patient Walk: Yes Gait (FIM): 6 Gait distance (FIM): 3=150 ft Walk 10 feet (QC): 6 Walk 10ft-Uneven Surface(QC): 6 Walk 50ft with 2 Turns (QC): 6 Walk 150 ft (QC): 6 Gait Assistive Device: FWW Does the Pt use WC or Scooter?: No Stairs (FIM): 6 # of Steps: 12 1 Step (curb) (QC): 6 4 Steps (QC): 6 12 Steps (QC): 6 Picking up an Object (QC): 6 PT Plan Treatment/Plan Treatment Plan: Continue Plan of Care Treatment Plan: Bed Mobility, Education, Functional Activity Gamaliel, Functional Strength, Group Therapy, Gait, Safety, Therapeutic Exercise, Transfers Treatment Duration: May 25, 2016 Visits Per Week: 10-15 Minutes/Day (M-F): 60-90 Minutes/Day (Sat/Fierro): prn Safety Risks/Education Patient Education: Transfer Techniques Time/GCodes Time In: 1320 Time Out: 1350 Total Billed Treatment Time: 30 Total Billed Treatment 1,FA20m,EX10m G Codes Necessary: AMNA Espinal FIELD ARTILLERY FIRE CONTROL MAN May 12, 2016 13:49
--- NOTE | 2016-05-12 15:21 | Physical Therapy Progress Note ---
Therapy Progress Note Review of MRI report reveals new component of acute lacunar infarct in the posterior left periventricular white matter. Pt's PT treatment and POC will remain unchanged at this time. Continue with skilled therapy intervention. MERNA HUMPHRIES PT May 12, 2016 15:21
[2016-05-12 18:55] VITALS: BP 132/73
[2016-05-12] MEDS: doxAzosin 4 MG (CARDURA) TAB PO SCH (20:31)
[2016-05-12] MEDS: DONEPEZIL 10 MG (ARICEPT) TAB PO SCH (20:31)
[2016-05-12] MEDS: SIMvastatin 20 MG (ZOCOR) TAB PO SCH (20:32)
[2016-05-12] MEDS: FINASTERIDE (PROSCAR) 5 MG TAB PO SCH (20:32)
[2016-05-12 21:55] LABS: BILIRUBIN,URINE NEGATIVE (NEGATIVE); KETONES,URINE NEGATIVE (NEGATIVE); LEUKOCYTE ESTERASE ,URINE NEGATIVE (NEGATIVE); NITRITE,URINE NEGATIVE (NEGATIVE); PH,URINE 7 (5-9); PROTEIN,URINE NEGATIVE (NEGATIVE); UROBILINOGEN,URINE NORMAL (NORMAL)
[2016-05-12 22:05] LABS: SQUAMOUS EPITHELIAL CELL,UR RARE /HPF
[2016-05-13] VITALS (14 sets, daily range): BP systolic 107–144; BP diastolic 56–94
[2016-05-13] MEDS: glyBURIDE 5 MG (MICRONASE) TAB PO SCH ×2 (04:49→17:45)
[2016-05-13] MEDS: OMEGA 3 (FISH OIL) 1000 MG CAP PO SCH ×2 (04:49→17:45)
[2016-05-13] MEDS: LIDOCAINE 2% VISCOUS 15 ML UDC PO SCH ×3 (04:49→17:46)
[2016-05-13] MEDS ORDERED: LIDOCAINE 2% VISCOUS 15 ML UDC ONE (07:23)
[2016-05-13] MEDS ORDERED: fentaNYL INJECTION 100 MCG/2 ML AMP ONE (07:23)
[2016-05-13] MEDS ORDERED: MIDAZOLAM 5 MG/5 ML (VERSED) VIAL ONE (07:27)
[2016-05-13] MEDS ORDERED: FLUMAZENIL (ROMAZICON) 0.1 MG/ML 5 ML VIAL ONE (07:27)
--- NOTE | 2016-05-13 07:53 | PM & R (SOAP) Progress Note ---
Subjective Subjective/Events-last exam Patient was seen in his room this AM Patient mod assist for transfers Patient to have GIANCARLO this AM Appreciate Cardiology and DR Chakraborty notes and orders. Labs reviewed U/A negative Objective Exam Last Set of Vital Signs Vital Signs Date Time Temp Pulse Resp B/P (MAP) Pulse Ox O2 Delivery O2 Flow Rate FiO2 05/13/16 05:00 97.4 61 20 144/64 96 Room Air Capillary Refill : I&O Intake and Output 05/13/16 00:00 Intake Total 1040 ml Balance 1040 ml Intake Oral 1040 ml # Voids 3 General: Alert, Oriented X3, Cooperative, No Acute Distress HEENT: Atraumatic, PERRLA, EOMI, Mucous Memb Moist/[place] Neck: Supple, No JVD Lungs: Clear to Auscultation Heart: Regular Rate Abdomen: Normal Bowel Sounds, Soft, No Tenderness Extremities: No Edema Neuro: Other (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) Results Lab Laboratory Tests 05/10/16 11:56: Glucometer 178H 05/10/16 16:00: Glucometer 181H 05/10/16 20:15: Glucometer 199H 05/11/16 05:32: Glucometer 136H 05/11/16 15:30: White Blood Count 6.6, Red Blood Count 4.02L, Hemoglobin 14.9, Hematocrit 40, Mean Corpuscular Volume 100H, Mean Corpuscular Hemoglobin 37H, Mean Corpuscular Hemoglobin Concent 37H, Red Cell Distribution Width 12.5, Platelet Count 162, Mean Platelet Volume 9.8, Neutrophils (%) (Auto) 59, Lymphocytes (%) (Auto) 27, Monocytes (%) (Auto) 12, Eosinophils (%) (Auto) 2, Basophils (%) (Auto) 1, Neutrophils # (Auto) 3.9, Lymphocytes # (Auto) 1.8, Monocytes # (Auto) 0.8, Eosinophils # (Auto) 0.2, Basophils # (Auto) 0.0, Sodium Level 137, Potassium Level 4.6, Chloride Level 103, Carbon Dioxide Level 29, Anion Gap 5, Blood Urea Nitrogen 13, Creatinine 0.86, Estimat Glomerular Filtration Rate > 60, BUN/ Creatinine Ratio 15, Glucose Level 185H, Calcium Level 8.6, Total Bilirubin 0.5 , Aspartate Amino Transf (AST/SGOT) 24, Alanine Aminotransferase (ALT/SGPT) 42, Alkaline Phosphatase 51, Total Protein 6.8, Albumin 3.9 05/11/16 20:53: Glucometer 234H 05/12/16 05:59: Glucometer 160H 05/12/16 11:33: Glucometer 166H 05/12/16 16:10: Glucometer 162H 05/12/16 16:22: Glucometer 151H 05/12/16 20:23: Glucometer 225H 05/12/16 21:35: Urine Color YELLOW, Urine Clarity CLEAR, Urine pH 7, Urine Specific [place] 1.010L, Urine Protein NEGATIVE, Urine Glucose (UA) 4+H, Urine Ketones NEGATIVE, Urine Nitrite NEGATIVE, Urine Bilirubin NEGATIVE, Urine Urobilinogen NORMAL, Urine Leukocyte Esterase NEGATIVE, Urine RBC (Auto) NEGATIVE, Urine RBC NONE, Urine WBC NONE, Urine Squamous Epithelial Cells RARE, Urine Crystals NONE, Urine Bacteria NONE, Urine Casts NONE, Urine Mucus NEGATIVE, Urine Culture Indicated NO 05/13/16 05:35: Glucometer 142H Assessment/Plan Assessment 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
--- NOTE | 2016-05-13 08:09 | Speech Therapy Progress Note ---
Therapy Progress Note Speech pathology received consultation for dysphagia evaluation and chart reviewed. The patient is currently NPO pending cardiac procedure this AM. ACETALDEHYDE CONVERTER OPERATOR will re-attempt dysphagia evaluation when patient is removed from NPO status. Thank you. AUBREY MCMILLAN May 13, 2016 08:09
[2016-05-13] MEDS ORDERED: NS IV 1000 ML 1,000 ML IV ONE (08:54)
[2016-05-13] MEDS: CLOPIDOGREL 75 MG (PLAVIX) TABLET PO SCH (09:00)
[2016-05-13] MEDS: PHENYTOIN 100 MG (DILANTIN) CAP PO SCH ×2 (09:00→20:51)
[2016-05-13] MEDS ORDERED: LIDOCAINE TOPICAL 4% 50 ML BTL MM PRN (09:00)
[2016-05-13] MEDS: ASPIRIN 81 MG CHEW (CHILDREN'S ASA) PO SCH (09:00)
[2016-05-13] MEDS ORDERED: fentaNYL INJECTION 100 MCG/2 ML AMP INJ PRN (09:00)
[2016-05-13] MEDS ORDERED: MIDAZOLAM 5 MG/5 ML (VERSED) VIAL IV PRN (09:00)
[2016-05-13] MEDS: lisINopril 20 MG (ZESTRIL) TAB PO SCH (09:00)
[2016-05-13] MEDS: CYANOCOBALAMIN 500 MCG TAB (VITAMIN B-12) PO SCH (09:00)
--- NOTE | 2016-05-13 09:16 | Cardiac Procedure Note-CS/ASA ---
Pre-Procedure Note Pre-Op Procedure Note H&P Reviewed The H&P was reviewed, patient examined and no changes noted. Date H&P Reviewed: May 13, 2016 Time H&P Reviewed: 08:10 Conscious Sedation Pre-Proced Time Reviewed: 08:10 ASA Class: 3 Airway Mallampati Classification: ([place] appropriate class) I. II. III, IV Lungs Heart ASA score ASA 1: a normal healthy patient ASA 2: a patient with a mild systemic disease (mid diabetes, controlled hypertension, obesity ASA 3: a patient with a severe systemic disease that limits activity (angina , COPD, prior Myocardial infarction) ASA 4: a patient with an incapacitating disease that is a constant threat to life (CHF, renal failure) ASA 5: a moribund patient not expected to survive 24 hrs. (ruptured aneurysm) ASA 6: a declared brain patient whose organs are being harvested. For emergent operations, add the letter E after the classification Grade 3 Sedation Plan: Analgesia, Amnesia, Plan communicated to team members, Discussed options with patient/fam, Discussed risks with patient/fam Note The patient is an appropriate candidate to undergo the planned procedure, sedation, and anesthesia. The patient immediately re-assessed prior to indication. LISA CHAUDHRY MD FACP FAC CCDS May 13, 2016 09:16
--- NOTE | 2016-05-13 09:24 | Progress Note-Cardiology ---
Cardiology SOAP Progress Note Subjective: Does not report cp or palp or syncope Able to communicated with gestures Objective: I&O/Vital Signs Vital Sign - Last 12Hours 05/13/16 05/13/16 05/13/16 05/13/16 00:57 05:00 07:56 08:12 Temp 97.4 Pulse 61 61 72 Resp 20 B/P (MAP) 144/64 136/64 Pulse Ox 96 96 O2 Delivery Room Air Nasal Cannula O2 Flow Rate 4.00 05/13/16 05/13/16 05/13/16 05/13/16 08:14 08:18 08:25 08:29 Pulse 77 69 66 71 Resp 18 17 B/P (MAP) 109/94 113/56 119/64 114/64 Pulse Ox 94 97 97 97 O2 Delivery Nasal Cannula Nasal Cannula Nasal Cannula Nasal Cannula O2 Flow Rate 4.00 4.00 4.00 4.00 05/13/16 05/13/16 05/13/16 05/13/16 08:34 08:41 08:46 08:51 Pulse 68 69 71 68 Resp 16 16 B/P (MAP) 130/64 119/63 117/59 110/66 Pulse Ox 96 96 95 96 O2 Delivery Nasal Cannula Nasal Cannula Nasal Cannula Room Air O2 Flow Rate 4.00 4.00 4.00 05/13/16 05/13/16 08:56 09:01 Pulse 75 72 B/P (MAP) 124/58 107/60 Pulse Ox 93 94 O2 Delivery Room Air Intake and Output 05/13/16 00:00 Intake Total 440 ml Balance 440 ml Weight (Pounds): 205 Weight (Ounces): 0.8 Weight (Calculated Kilograms): 92.133815 Constitutional: well-developed, well-nourished, other (appears oriented and seems to understand issues) Respiratory: No accessory muscle use, lungs clear to percussion, lungs clear to auscultation Cardiovascular: regular rate-rhythm, S1 and S2, systolic murmur (faint LIA at card base) Gastrointestional: No tender, soft, No guarding, No rebound, audible bowel sounds Extremities: No clubbing, No cyanosis, No significant edema Neurologic/Psychiatric: other (expressive aphasia; seems to be able to move all limbs ) Skin: No rash on exposed areas, No ulcerations on exposed areas Results/Procedures: Labs Laboratory Tests 3/30/17 11:33: Glucometer 166H 05/12/16 16:10: Glucometer 162H 05/12/16 16:22: Glucometer 151H 05/12/16 20:23: Glucometer 225H 05/12/16 21:35: Urine Color YELLOW, Urine Clarity CLEAR, Urine pH 7, Urine Specific [place] 1.010L, Urine Protein NEGATIVE, Urine Glucose (UA) 4+H, Urine Ketones NEGATIVE, Urine Nitrite NEGATIVE, Urine Bilirubin NEGATIVE, Urine Urobilinogen NORMAL, Urine Leukocyte Esterase NEGATIVE, Urine RBC (Auto) NEGATIVE, Urine RBC NONE, Urine WBC NONE, Urine Squamous Epithelial Cells RARE, Urine Crystals NONE, Urine Bacteria NONE, Urine Casts NONE, Urine Mucus NEGATIVE, Urine Culture Indicated NO 05/13/16 05:35: Glucometer 142H Laboratory Tests 05/11/16 15:30 A/P: Assessment: CVA: dysphagia, expressive aphasia. GIANCARLO on 05/13/16: no intracardiac thrombus, no evidence of intracardiac shunt on bubble contrast study, LVEF approx 60%, trivial MR and TR, technically difficult study Coronary artery disease-patient reports history of AR in the remote past, details not known Hypertension-controlled Hyperlipidemia-maintained on statin. Diabetes mellitus-managed by primary care physician Plan: I spoke with the patient prior to GIANCARLO and obtained informed consent Source of CVA remain unknown. PAF is a consideration. Dr Brizuela is consider implantable loop recorder I spoke with his family and explained GIANCARLO results and answered questions LISA CHAUDHRY MD [facility] May 13, 2016 09:24
--- NOTE | 2016-05-13 12:59 | Occupational Ther Daily Note ---
OT Current Status-Daily Note Subjective Pt seen in room, hopped up to take himself to the bathroom as OT walked in to room. Pt had been off floor for GIANCARLO. Appearance Alert, cooperative, aphasic Mental Status/Objective Functional [place] Measure 0=Not Assessed/NA 4=Minimal Assistance 1=Total Assistance 5=Supervision or Setup 2=Maximal Assistance 6=Modified [place] 3=Moderate Assistance 7=Complete [place] Attachments: IV ADL-Treatment Pt wanted to take a shower today. Initially had little difficulty using R hand but, as ADLs progressed, his ability to use R arm declined. He held things in his hand and wasn't aware of them and reached for faucet but didn't turn it on. He also had difficulty shaving with R hand. Nursing notified of changes. Pt is NPO after surgery - hasn't regained gag reflex. Pt walked fairly even to bathroom but, when walking back to recliner, listed to R and had decreased balance, requiring min assist, FWW. Functional [place] Measure 0=Not Assessed/NA 4=Minimal Assistance 1=Total Assistance 5=Supervision or Setup 2=Maximal Assistance 6=Modified [place] 3=Moderate Assistance 7=Complete IndependenceIRFPAI Quality Coding Scale 6 Independent with activity with or without an assistive device 5 Patient requires set up or clean up by helper. Patient completes activity by themselves 4 Supervision or touching assist (CGA). [place] provide cues , steadying assist 3 The helper provides less than half the effort to complete the activity 2 The helper provides more than half the effort to complete the activity 1 Dependent. The helper does all the effort to complete an activity 7 Patient refused to complete or attempt activity 9 The patient did not perform the activity before the current illness or injury 88 Not attempted due to Medical conditions or safety concerns Grooming (FIM): 4 (Needed help finishing shaving. Used both hands together to brush teeth. Washed face and hands in shower. ) Bathing (FIM): 5 (Pt was able to wash and dry all parts but needed skilled cues to wash LEs and to sit to bathe for safety. Required supervision. SHower bench, grab bars, hand held shower. ) Upper Body (FIM): 5 (Put shirt on with setup but did not get R arm into shirt until last step.Was able to problem solve why shirt wasn't going on.) Lower Body Dressing (FIM): 4 (Required heavy min assist to maintain balance when standing to pull boxers and pants on. Leaned heavily to R side. Able to get slipper socks on with setup. ) Toileting (FIM): 5 (Able to manage hygiene and clothing off. Tall toilet, grab bar, FWW) Toilet/Commode Transfer (FIM): 5 (SBA, off tall toilet, grab bar, FWW) Shower Transfer(FIM): 4 (Min assist to get up off bench after bathing. Grab bars) Pt left up in recliner, all needs met, chair alarm on. OT Short Term Goals Short Term Goals Time Frame: May 11, 2016 Eating(FIM): 5 Grooming(FIM): 5 Bathing(FIM): 4 Upper Body Dressing(FIM): 5 Lower Body Dressing(FIM): 5 Toileting(FIM): 5 Transfers (B,C,W/C) (FIM): 5 Toilet/Commode Transfer(FIM): 5 Shower Transfer(FIM): 4 Additional Short Term Goals: 1-Demonstrate ADL Tasks, 2-Verbalize Understanding , 3-ImproveStrength/Gamaliel 1=Demonstrate adherence to instructed precautions during ADL tasks. 2=Patient will verbalize/demonstrate understanding of assistive devices/ modifications for ADL. 3=Patient will improve strength/tolerance for activity to enable patient to perform ADL's. OT Professor Of Art Goals Longterm Goals Time Frame: May 18, 2016 Eating (FIM): 6 Eating (QC): 6 Groomin Oral Hygiene (QC): 6 Bathing(FIM): 5 Shower/Bathe Self (QC): 5 Upper Body Dressing(FIM): 6 Upper Body Dressing (QC): 6 Lower Body Dressing(FIM): 6 Lower Body Dressing (QC): 6 On/Off Footwear (QC): 6 Toileting(FIM): 6 Toileting Hygiene (QC): 6 Transfers (B,C,W/C) (FIM): 6 Toilet/Commode Transfer(FIM): 6 Toilet/Commode Transfer (QC): 6 Shower Transfer(FIM): 5 Comprehension(FIM): 3 Expression (FIM): 3 Social Interaction(FIM): 4 Additional Goals: 1-Demonstrate ADL Tasks, 2-Verbalize Understanding, 3- ImproveStrength/Gamaliel 1=Demonstrate adherence to instructed precautions during ADL tasks. 2=Patient will verbalize/demonstrate understanding of assistive devices/ modifications for ADL. 3=Patient will improve strength/tolerance for activity to enable patient to perform ADL's. OT Education/Plan Problem List/Assessment Pt. was noted to run into items on the right side. Note right sided neglect. Discharge Recommendations Plan/Recommendations: Continue POC Treatment Plan/Plan of Care Patient would benefit from OT for education, treatment and training to promote independence in ADL's, mobility, safety and/or upper extremity function for ADL' s. Plan of Care: ADL Retraining, Functional Mobility, UE Funct Exercise/Act Treatment Duration: May 18, 2016 Visits Per Week: 10-12 Minutes/Day (M-F): 60-90 Minutes/Day (Sat/Fierro): PRN Agreement: Yes Rehab Potential: Fair Time/GCodes Start Time: 09:40 Stop Time: 10:45 Total Time Billed (hr/min): 65 Billed Treatment Time visit, 65 minutes ADL DARELL GALVEZ OT May 13, 2016 12:59
--- NOTE | 2016-05-13 13:29 | Physical Therapy Daily Note ---
PT Daily Note-Current Subjective Pt. shakes head yes, ready for Rx. Pain Numeric Pain Scale: 0-No Pain Appearance right side ignoral Mental Status Patient Orientation: Non-Verbal/Aphasic Transfers Functional [place] Measure 0=Not Assessed/NA 4=Minimal Assistance 1=Total Assistance 5=Supervision or Setup 2=Maximal Assistance 6=Modified [place] 3=Moderate Assistance 7=Complete IndependenceIRFPAI Quality Coding Scale 6 Independent with activity with or without an assistive device 5 Patient requires set up or clean up by helper. Patient completes activity by themselves 4 Supervision or touching assist (CGA). [place] provide cues , steadying assist 3 The helper provides less than half the effort to complete the activity 2 The helper provides more than half the effort to complete the activity 1 Dependent. The helper does all the effort to complete an activity 7 Patient refused to complete or attempt activity 9 The patient did not perform the activity before the current illness or injury 88 Not attempted due to Medical conditions or safety concerns Transfers (B, C, W/C) (FIM): 4 Scootin Rollin (needs time) Supine to/from Sit: 4 Sit to/from Stand: 4 Bed to/from Chair: 4 Gait Training Does the Patient Walk?: Yes Gait (FIM): 2 Distance (FIM): 9=626-50 ft (50ftx4) Gait Level of Assist: 3 Gait Persons Needed: 1 Gait Assistive Device: FWW heavy list and lean right 60% of time during gait and rx Wheelchair Training Does the Pt Use a Wheelchair?: Yes Wheelchair (FIM): 2 Wheelchair Distance: 2=268-76 ft Wheelchair Level of Assist: 3 Type of Wheelchair: Manual pt. initiated to w/c mobility today as gait with FWW waxes and wanes and not functional off and on. pt educated in brakes off and on as well as propelling with UEs and heel digs Exercises Standing: Heel/toe raises, Sit to Stand, Weight shifts Standing Reps: 10 standing at parallel bars for wt shifts and sidestep with w/c behind as well as mirror in front of pt for feedback; NuStep Minutes: 10 NuStep Workload: 3 Neuromuscular using right hand only on Nustep Assessment Current Status: Fair Progress aphasia inhibits progress PT Short Term Goals Short Term Goals Time Frame: May 11, 2016 Transfers (B,C,W/C) (FIM): 5 Gait (FIM): 5 Distance (FIM): 3=150 ft Stairs (FIM): 4 PT Composition Roll Maker And Cutter Goals Composition Roll Maker And Cutter Goals PT Retirement Goals Time Frame: May 25, 2016 Transfers (B,C,W/C) (FIM): 7 Sit to Lying (QC): 6 Lying-Sitting on Side/Bed(QC): 6 Sit to Stand (QC): 6 Rollin Roll Left to Right (QC): 6 Chair/Gsq-rt-Cbatu Xfer(QC): 6 Car Transfer (QC): 6 Does the Patient Walk: Yes Gait (FIM): 6 Gait distance (FIM): 3=150 ft Walk 10 feet (QC): 6 Walk 10ft-Uneven Surface(QC): 6 Walk 50ft with 2 Turns (QC): 6 Walk 150 ft (QC): 6 Gait Assistive Device: FWW Does the Pt use WC or Scooter?: No Stairs (FIM): 6 # of Steps: 12 1 Step (curb) (QC): 6 4 Steps (QC): 6 12 Steps (QC): 6 Picking up an Object (QC): 6 PT Plan Treatment/Plan Treatment Plan: Continue Plan of Care Treatment Plan: Bed Mobility, Education, Functional Activity Gamaliel, Functional Strength, Group Therapy, Gait, Safety, Therapeutic Exercise, Transfers Treatment Duration: May 25, 2016 Visits Per Week: 10-15 Minutes/Day (M-F): 60-90 Minutes/Day (Sat/Fierro): prn Safety Risks/Education Patient Education: Gait Training, Transfer Techniques, Correct Positioning, W/ C Management, Safety Issues Teaching Recipient: Patient Teaching Methods: Demonstration Response to Teaching: Return Demonstration, Reinforcement Needed Time/GCodes Time In: 1215 Time Out: 1300 Total Billed Treatment Time: 45 Total Billed Treatment 1,EX25,WC20 G Codes Necessary: AMNA Espinal MINE ENGINEERING MANAGER May 13, 2016 13:29
--- NOTE | 2016-05-13 14:45 | Therapy Group Daily Note ---
Therapy Daily Group Note Exercises Balance, Sit to/from Stand, Fine Motor, UE Exercise Other/Notes Pt finished up with PT then was transported to OT/PT group in /. Group consisted of introductions, socialization, UE exercises, memory recall, fine motor, sit to stand activities and transfers. Pt was able to contribute to group conversations and answer questions when given choices to choose from. Pt has difficulty with receptive/expressive aphasia. Pt was able to recall safety items from previous group without difficulty with choices. Pt relied on GRIDER assistance during fine motor activities to assist reducing amount of choices then was able to appropriately pick item to place. Pt worked on UE exercises in standing. After each attempt pt would lean toward R side and lose balance. After group, pt transferred with mod A x1 to recliner from /. Call light/ phone in reach. All needs met in room. Start Time: 13:00 Stop Time: 14:15 Total Billed Treatment Time: 75 Total Billed Treatment 1-GRP MERNA HOPSON May 13, 2016 14:45
--- NOTE | 2016-05-13 14:50 | ST Dysphagia Evaluation ---
Speech Evaluation-General Medical Diagnosis CVA Onset Date: May 02, 2016 Therapy Diagnosis Therapy Diagnosis: Mild Oropharyngeal Dysphagia Precautions Precautions: Aspiration Precautions/Isolations: Fall Prevention, Standard Precautions Referral Referring Physician: Dr. Rafi Alvarado Reason for Referral: Evaluation/Treatment Clinical Bedside Swallowing Evaluation Medical History Pertinent Medical History: CAD, DM, HTN, IA Reviewed History: Yes Social History Current Living Status: Alone Speech PLF/Current-Dysphagia Prior Level of Function The patient reported consumption of a regular diet with thin liquids prior to admission. Subjective The patient was recently admitted to [facility] secondary to a stroke. Upon admission, the patient experienced a second CVA. Due to the presence of the second CVA, a dysphagia evaluation was requested. The patient was agreeable to participate in the dysphagia evaluation on this date. Cognitive Status Patient Orientation: Person Severe expressive aphasia noted. Oral Motor Skills Dentition: Natural Ability to Follow Directions: Fair Oral Expression Ability: Severe Impairment The patient is NPO following a recent cardiac procedure and pending the dysphagia evaluation. Voice Voice Phonatory-Based Quality: Glottal Granados Voice Pitch: Normal Voice Loudness: Normal Face Facial Symmetry: Asymmetrical (Right sided droop) Oral-Facial Assessment Oral-Facial Dentition: Normal Labial Seal Description: Droops Right Smile: Droops Right Puff Cheeks: Reduced Strength (Right) Lingual Protrusion: Normal Lingual ROM: Normal Lingual Strength: Normal Pharynx Velopharyngeal Move.: Normal Volitional Dry Swallow: Yes Dysphagia Evaluation Consistencies Presented: Regular, Thin Liquid, Mechanical Soft, Pureed Oral Phase: Anterior Spillage One occurrence of right labial anterior spillage was noted of thin liquid via straw. Additionally, mild right lingual residue was noted of puree following the swallow. Pharyngeal Phase: Reduced Laryngeal Elevation Mildly reduced laryngeal elevation was noted with all consistencies tested. To note: The patient demonstrated a wet vocal quality at baseline. The patient was able to clear vocal quality with a cued throat clear. - Thin Liquid (via teaspoon, cup sip, straw): No signs/symptoms of aspiration were demonstrated with multiple small, single sips of thin liquid. A delayed throat clear was noted with a large, consecutive straw drink of thin liquid ( water). - Puree, Mechanical Soft, Solid: No signs/symptoms of aspiration were demonstrated with multiple boluses of puree, mechanical soft, and solid consistencies tested. Dietary Recommendations: Regular Liquid Recommendations: Thin Swallowing Precautions: Small Bites and Sips, Sitting Upright 90 Degrees, Right Tongue Sweep 1. Crush medication and place in puree for administration. 2. Aid patient in meal ordering/placement. Dysphagia Evaluation Summary Mild oropharyngeal dysphagia characterized by decreased right labial strength, reduced lingual sensation, and decreased laryngeal elevation. Speech Short Term Goals Short Term Goals Short Term Goals 1. The patient will state names of five common objects and five common pictures with 80% accuracy and moderate clinician cueing. 2. The patient will repeat single words and short phrases with 70% accuracy with moderate clinician verbal cueing. 3. The patient will demonstrated 90% accuracy with simple yes/no questions. 4. The patient will display 90% accuracy with simple, one-step commands. Time Frame-STG: Three Weeks Speech Credit Manager Goals Credit Manager Goals 1. The patient will demonstrate improved receptive and expressive communication skills for increased safety and function with ADL's. Time Frame: Two Months Comprehension: 3 Expression: 3 Social Interaction: 4 Speech-Plan Treatment Plan Speech Therapy Treatment Plan: Discontinue ST Discontinue speech pathology for dysphagia services only. Speech pathology will continue to follow patient for speech and language. Treatment Duration: June 29, 2016 Rehab Potential: Fair Safety Risks/Education Teaching Recipient: Patient Teaching Methods: Handout, Discussion Response to Teaching: Verbalize Understanding Education Topics Provided: Results and Recommendations Time Speech Therapy Time In: 14:15 Speech Therapy Time Out: 14:45 Total Billed Time: 30 Billed Treatment Time 1, AUBREY VEE May 13, 2016 14:50
[2016-05-13] MEDS: FINASTERIDE (PROSCAR) 5 MG TAB PO SCH (20:51)
[2016-05-13] MEDS: SIMvastatin 20 MG (ZOCOR) TAB PO SCH (20:51)
[2016-05-13] MEDS: DONEPEZIL 10 MG (ARICEPT) TAB PO SCH (20:51)
[2016-05-13] MEDS: doxAzosin 4 MG (CARDURA) TAB PO SCH (20:51)
[2016-05-14 05:01] VITALS: BP 124/69
[2016-05-14] MEDS: LIDOCAINE 2% VISCOUS 15 ML UDC PO SCH ×3 (06:12→16:59)
[2016-05-14] MEDS: glyBURIDE 5 MG (MICRONASE) TAB PO SCH ×2 (06:12→16:59)
[2016-05-14] MEDS: OMEGA 3 (FISH OIL) 1000 MG CAP PO SCH ×2 (06:12→16:59)
[2016-05-14 09:53] VITALS: BP 126/64
[2016-05-14] MEDS: CLOPIDOGREL 75 MG (PLAVIX) TABLET PO SCH (09:57)
[2016-05-14] MEDS: lisINopril 20 MG (ZESTRIL) TAB PO SCH (09:57)
[2016-05-14] MEDS: ASPIRIN 81 MG CHEW (CHILDREN'S ASA) PO SCH (09:57)
[2016-05-14] MEDS: PHENYTOIN 100 MG (DILANTIN) CAP PO SCH ×2 (09:57→20:33)
[2016-05-14] MEDS: CYANOCOBALAMIN 500 MCG TAB (VITAMIN B-12) PO SCH (09:58)
--- NOTE | 2016-05-14 12:58 | Physical Therapy Daily Note ---
PT Daily Note-Current Subjective Pt sitting in chair and agreeable to treatment. Pt given choices on a piece of paper and asked to choose percentage of where his (R) leg strength falls at this time. Pt indicated (R) LE is 30% of where it should be. Mental Status Patient Orientation: Person, Non-Verbal/Aphasic Pt responds appropriately to instructions. Pt trying to speak but unable at times, at other times automatic. Transfers Functional [place] Measure 0=Not Assessed/NA 4=Minimal Assistance 1=Total Assistance 5=Supervision or Setup 2=Maximal Assistance 6=Modified [place] 3=Moderate Assistance 7=Complete IndependenceIRFPAI Quality Coding Scale 6 Independent with activity with or without an assistive device 5 Patient requires set up or clean up by helper. Patient completes activity by themselves 4 Supervision or touching assist (CGA). [place] provide cues , steadying assist 3 The helper provides less than half the effort to complete the activity 2 The helper provides more than half the effort to complete the activity 1 Dependent. The helper does all the effort to complete an activity 7 Patient refused to complete or attempt activity 9 The patient did not perform the activity before the current illness or injury 88 Not attempted due to Medical conditions or safety concerns PT donned pants with SBA, Pt stood without use of hands and demonstrated ability to pull up pants and get situated. Gait Training Gait Assistive Device: FWW Pt practiced turning and going toward his R around the round table in the dinning room. Practiced gait and traveling around the table 5 x 45 ft with seated rest each time so he had to practice his approach to chair and safe sitting technique. Pt improved each bout by less and less cueing required. Exercises Seated Therapy Exercises: Long arc quads, Hip flexion, Hip abd/add Seated Reps: 20 Practiced head turns and looking to his (R) with a target x 20 Assessment Current Status: Good Progress Pt was able to perform above gait training and transfers CGA. No LOB or unsteadiness noted. Pt back to chair with call light and lunch in front of him , ambu alarm activated. All needs met. PT Short Term Goals Short Term Goals Time Frame: May 11, 2016 Transfers (B,C,W/C) (FIM): 5 Gait (FIM): 5 Distance (FIM): 3=150 ft Stairs (FIM): 4 PT Risk Reduction Counselor Goals Correction Goals PT Risk Reduction Counselor Goals Time Frame: May 25, 2016 Transfers (B,C,W/C) (FIM): 7 Sit to Lying (QC): 6 Lying-Sitting on Side/Bed(QC): 6 Sit to Stand (QC): 6 Rollin (needs time) Roll Left to Right (QC): 6 Chair/Ggm-af-Evuhk Xfer(QC): 6 Car Transfer (QC): 6 Does the Patient Walk: Yes Gait (FIM): 6 Gait distance (FIM): 3=150 ft Walk 10 feet (QC): 6 Walk 10ft-Uneven Surface(QC): 6 Walk 50ft with 2 Turns (QC): 6 Walk 150 ft (QC): 6 Gait Assistive Device: FWW Does the Pt use WC or Scooter?: No Stairs (FIM): 6 # of Steps: 12 1 Step (curb) (QC): 6 4 Steps (QC): 6 12 Steps (QC): 6 Picking up an Object (QC): 6 PT Plan Treatment/Plan Treatment Plan: Continue Plan of Care Treatment Plan: Bed Mobility, Education, Functional Activity Gamaliel, Functional Strength, Group Therapy, Gait, Safety, Therapeutic Exercise, Transfers Treatment Duration: May 25, 2016 Visits Per Week: 10-15 Minutes/Day (M-F): 60-90 Minutes/Day (Sat/Fierro): prn Time/GCodes Time In: 1100 Time Out: 1140 Total Billed Treatment Time: 40 Total Billed Treatment 1, gait x 30 min, Ther ex 15min BALDOMERO WHALEN CPTDevon May 14, 2016 12:58
--- NOTE | 2016-05-14 15:18 | Cardiology Progress Note ---
Cardiology SOAP Progress Note Subjective: no complaints Objective: I&O/Vital Signs Vital Sign - Last 12Hours 05/14/16 05/14/16 05/14/16 05/14/16 05:01 07:00 08:01 09:53 Temp 98.6 96.5 Pulse 62 66 72 Resp 18 18 B/P (MAP) 124/69 126/64 Pulse Ox 96 95 O2 Delivery Room Air Room Air Room Air 05/14/16 13:00 Pulse 78 Intake and Output 05/14/16 00:00 Intake Total 650 ml Balance 650 ml Weight (Pounds): 205 Weight (Ounces): 0.8 Weight (Calculated Kilograms): 92.042800 Constitutional: well-developed, well-nourished, other (appears oriented and seems to understand issues) Respiratory: No accessory muscle use, lungs clear to percussion, lungs clear to auscultation Cardiovascular: regular rate-rhythm, S1 and S2, systolic murmur (faint LIA at card base) Gastrointestional: No tender, soft, No guarding, No rebound, audible bowel sounds Extremities: No clubbing, No cyanosis, No significant edema Neurologic/Psychiatric: other (expressive aphasia; seems to be able to move all limbs ) Skin: No rash on exposed areas, No ulcerations on exposed areas Results/Procedures: Labs Laboratory Tests 05/13/16 15:48: Glucometer 196H 05/13/16 20:50: Glucometer 167H 05/14/16 05:16: Glucometer 150H 05/14/16 11:20: Glucometer 172H A/P: Assessment/Dx: Assessment: CVA: dysphagia, expressive aphasia. GIANCARLO on 05/13/16: no intracardiac thrombus, no evidence of intracardiac shunt on bubble contrast study, LVEF approx 60%, trivial MR and TR, technically difficult study Coronary artery disease-patient reports history of GA in the remote past, details not known Hypertension-controlled Hyperlipidemia-maintained on statin. Diabetes mellitus-managed by primary care physician Plan: Plan: Source of CVA remain unknown. PAF is a consideration. Dr Brizuela is consider implantable loop recorder. if low risk for bleeding, it may be prudent to start him on oral anticoagulation. I will defer to Dr. Brizuela. GIANCARLO did not show any major abnormality. Liss MONTANO MD May 14, 2016 15:18
[2016-05-14 18:08] VITALS: BP 124/68
[2016-05-14] MEDS: DONEPEZIL 10 MG (ARICEPT) TAB PO SCH (20:33)
[2016-05-14] MEDS: SIMvastatin 20 MG (ZOCOR) TAB PO SCH (20:33)
[2016-05-14] MEDS: doxAzosin 4 MG (CARDURA) TAB PO SCH (20:33)
[2016-05-14] MEDS: FINASTERIDE (PROSCAR) 5 MG TAB PO SCH (20:33)
[2016-05-15 05:07] VITALS: BP 127/67
[2016-05-15] MEDS: glyBURIDE 5 MG (MICRONASE) TAB PO SCH ×2 (06:29→16:38)
[2016-05-15] MEDS: OMEGA 3 (FISH OIL) 1000 MG CAP PO SCH ×2 (06:29→16:38)
[2016-05-15] MEDS: LIDOCAINE 2% VISCOUS 15 ML UDC PO SCH ×3 (06:29→16:44)
[2016-05-15] MEDS: PHENYTOIN 100 MG (DILANTIN) CAP PO SCH ×2 (08:25→20:29)
[2016-05-15] MEDS: lisINopril 20 MG (ZESTRIL) TAB PO SCH (08:25)
[2016-05-15] MEDS: ASPIRIN 81 MG CHEW (CHILDREN'S ASA) PO SCH (08:25)
[2016-05-15] MEDS: CLOPIDOGREL 75 MG (PLAVIX) TABLET PO SCH (08:25)
[2016-05-15] MEDS: CYANOCOBALAMIN 500 MCG TAB (VITAMIN B-12) PO SCH (08:26)
--- NOTE | 2016-05-15 14:26 | Cardiology Progress Note ---
Cardiology SOAP Progress Note Subjective: Stable Objective: I&O/Vital Signs Vital Sign - Last 12Hours 05/15/16 05/15/16 05:07 08:56 Temp 97.0 Pulse 65 Resp 18 B/P (MAP) 127/67 Pulse Ox 94 O2 Delivery Room Air Room Air Intake and Output 05/15/16 00:00 Intake Total 1175 ml Balance 1175 ml Weight (Pounds): 205 Weight (Ounces): 0.8 Weight (Calculated Kilograms): 92.991111 Constitutional: well-developed, well-nourished, other (appears oriented and seems to understand issues) Respiratory: No accessory muscle use, lungs clear to percussion, lungs clear to auscultation Cardiovascular: regular rate-rhythm, S1 and S2, systolic murmur (faint LIA at card base) Gastrointestional: No tender, soft, No guarding, No rebound, audible bowel sounds Extremities: No clubbing, No cyanosis, No significant edema Neurologic/Psychiatric: other (expressive aphasia; seems to be able to move all limbs ) Skin: No rash on exposed areas, No ulcerations on exposed areas Results/Procedures: Labs Laboratory Tests 05/14/16 15:58: Glucometer 234H 05/14/16 20:16: Glucometer 127H 05/15/16 06:28: Glucometer 173H 05/15/16 11:46: Glucometer 235H A/P: Assessment/Dx: Assessment: CVA: dysphagia, expressive aphasia. GIANCARLO on 05/13/16: no intracardiac thrombus, no evidence of intracardiac shunt on bubble contrast study, LVEF approx 60%, trivial MR and TR, technically difficult study Coronary artery disease-patient reports history of HI in the remote past, details not known Hypertension-controlled Hyperlipidemia-maintained on statin. Diabetes mellitus-managed by primary care physician Plan: Plan: Source of CVA remain unknown. PAF is a consideration. Dr Brizuela is consider implantable loop recorder. if low risk for bleeding, it may be prudent to start him on oral anticoagulation. I will defer to Dr. Brizuela. GIANCARLO did not show any major abnormality. Continue physical therapy. Liss MONTANO MD May 15, 2016 14:26
[2016-05-15 16:37] VITALS: BP 130/70
[2016-05-15 17:50] VITALS: BP 114/69
[2016-05-15] MEDS: SIMvastatin 20 MG (ZOCOR) TAB PO SCH (20:29)
[2016-05-15] MEDS: DONEPEZIL 10 MG (ARICEPT) TAB PO SCH (20:29)
[2016-05-15] MEDS: FINASTERIDE (PROSCAR) 5 MG TAB PO SCH (20:29)
[2016-05-15] MEDS: doxAzosin 4 MG (CARDURA) TAB PO SCH (20:29)
[2016-05-16 05:07] VITALS: BP 122/54
[2016-05-16] MEDS: OMEGA 3 (FISH OIL) 1000 MG CAP PO SCH ×2 (06:15→16:49)
[2016-05-16] MEDS: LIDOCAINE 2% VISCOUS 15 ML UDC PO SCH ×3 (06:15→16:49)
[2016-05-16] MEDS: glyBURIDE 5 MG (MICRONASE) TAB PO SCH ×2 (06:15→16:49)
[2016-05-16] MEDS: CYANOCOBALAMIN 500 MCG TAB (VITAMIN B-12) PO SCH (07:59)
[2016-05-16] MEDS: CLOPIDOGREL 75 MG (PLAVIX) TABLET PO SCH (08:00)
[2016-05-16] MEDS: ASPIRIN 81 MG CHEW (CHILDREN'S ASA) PO SCH (08:00)
[2016-05-16] MEDS: PHENYTOIN 100 MG (DILANTIN) CAP PO SCH ×2 (08:00→20:47)
[2016-05-16] MEDS: lisINopril 20 MG (ZESTRIL) TAB PO SCH (08:00)
--- NOTE | 2016-05-16 08:33 | Cardiology Progress Note ---
Subjective Subjective/Events-last exam Patient is in chair. Complaining of some left jaw and eye pain. Jaw pain reproducible with palpation. Denies any CP or dyspnea. Review of Systems General: No Night Sweats, No Fatigue, No Malaise HEENT: Visual Changes, Eye Pain (left), Other (left jaw/dental pain) Pulmonary: No Dyspnea, No Cough Cardiovascular: No: Chest Pain, Edema, Palpitations, Paroxysmal Noc. Dyspnea Gastrointestinal: No: Abdominal Pain, Nausea, Vomiting Genitourinary: No Dysuria, No Frequency Musculoskeletal: No: back pain, neck pain Neurological: No: Change in speech, Confusion, Numbness, Weakness Objective-Cardiology Exam Last Set of Vital Signs Vital Signs 05/13/16 05/16/16 08:46 05:07 Temp 98.1 Pulse 75 Resp 18 B/P (MAP) 122/54 Pulse Ox 97 O2 Delivery Room Air O2 Flow Rate 4.00 Capillary Refill : I&O Intake and Output 05/16/16 00:00 Intake Total 1690 ml Balance 1690 ml Intake Oral 1690 ml # Voids 14 # Bowel Movements 3 General: Alert, Oriented X3, Cooperative, No Acute Distress HEENT: Atraumatic, PERRLA, EOMI, Mucous Memb Moist/[place] Neck: Supple, No JVD Lungs: Clear to Auscultation Heart: Regular Rate Abdomen: Normal Bowel Sounds, Soft, No Tenderness Extremities: No Edema Neuro: Other (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) A/P-Cardiology Admission Diagnosis CVA HTN HLP CAD Assessment/Plan CVA-patient having some dysphagia, expressive aphasia. Patient has been in the acute rehabilitation unit receiving physical therapy, had worsening of his symptoms. Repeat MRI of brain revealed new area of infarct. Has been maintained on Plavix and aspirin. Unknown etiology. GIANCARLO done 05/13/16 revealed no intracardiac thrombus, no evidence of intracardiac shunt on bubble contrast study, LVEF approx 60%, trivial MR and TR, technically difficult study. Telemetry showed SR with BBB. Planning for Linq implantation for further monitoring. Coronary artery disease-patient reports history of [place] in the remote past. 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 I will try to obtain records. States he has not seen his camera supervisor in a long time. Hypertension-controlled. Continue to monitor blood pressure/heart rate Hyperlipidemia-maintained on statin. Diabetes mellitus-managed by primary care physician Left jaw and eye pain- jaw pain reproducible with palpation. I will defer management to PCP. Clinical Quality Measures DVT/VTE Risk/Contraindication: Risk Factor Score Per Nursin RFS Level Per Nursing on Admit: 4+=Very High EMMA DONOVAN May 16, 2016 08:32
--- NOTE | 2016-05-16 09:04 | Physical Therapy Daily Note ---
PT Daily Note-Current Subjective Pt. sitting up in chair drinking coffee using right hand, speaking better, finishing thoughts etc. Pain Numeric Pain Scale: 0-No Pain Mental Status Patient Orientation: Non-Verbal/Aphasic Transfers Functional [place] Measure 0=Not Assessed/NA 4=Minimal Assistance 1=Total Assistance 5=Supervision or Setup 2=Maximal Assistance 6=Modified [place] 3=Moderate Assistance 7=Complete IndependenceIRFPAI Quality Coding Scale 6 Independent with activity with or without an assistive device 5 Patient requires set up or clean up by helper. Patient completes activity by themselves 4 Supervision or touching assist (CGA). [place] provide cues , steadying assist 3 The helper provides less than half the effort to complete the activity 2 The helper provides more than half the effort to complete the activity 1 Dependent. The helper does all the effort to complete an activity 7 Patient refused to complete or attempt activity 9 The patient did not perform the activity before the current illness or injury 88 Not attempted due to Medical conditions or safety concerns Transfers (B, C, W/C) (FIM): 5 Scootin Rollin Supine to/from Sit: 5 Sit to/from Stand: 5 Gait Training Does the Patient Walk?: Yes Gait (FIM): 4 Distance (FIM): 3=150 ft Gait Level of Assist: 4 Gait Persons Needed: 1 Gait Assistive Device: FWW gait improved, CGA with improved step length no listing, right hand manager community improved Exercises Seated Therapy Exercises: Ankle pumps, Sit to stand, Long arc quads, Hip flexion Seated Reps: 12 Treatments toileted with SBa to min assist for pants up down Assessment Current Status: Good Progress Cardiac in for procedure to place LINK device recorder PT Short Term Goals Short Term Goals Time Frame: May 11, 2016 Transfers (B,C,W/C) (FIM): 5 Gait (FIM): 5 Distance (FIM): 3=150 ft Stairs (FIM): 4 PT Fpc Goals Auto Fleet Maintenance Manager Goals PT Fpc Goals Time Frame: May 25, 2016 Transfers (B,C,W/C) (FIM): 7 Sit to Lying (QC): 6 Lying-Sitting on Side/Bed(QC): 6 Sit to Stand (QC): 6 Rollin (needs time) Roll Left to Right (QC): 6 Chair/Kvb-zg-Fgfda Xfer(QC): 6 Car Transfer (QC): 6 Does the Patient Walk: Yes Gait (FIM): 6 Gait distance (FIM): 3=150 ft Walk 10 feet (QC): 6 Walk 10ft-Uneven Surface(QC): 6 Walk 50ft with 2 Turns (QC): 6 Walk 150 ft (QC): 6 Gait Assistive Device: FWW Does the Pt use WC or Scooter?: No Stairs (FIM): 6 # of Steps: 12 1 Step (curb) (QC): 6 4 Steps (QC): 6 12 Steps (QC): 6 Picking up an Object (QC): 6 PT Plan Treatment/Plan Treatment Plan: Continue Plan of Care Treatment Plan: Bed Mobility, Education, Functional Activity Gamaliel, Functional Strength, Group Therapy, Gait, Safety, Therapeutic Exercise, Transfers Treatment Duration: May 25, 2016 Visits Per Week: 10-15 Minutes/Day (M-F): 60-90 Minutes/Day (Sat/Fierro): prn Safety Risks/Education Patient Education: Gait Training, Transfer Techniques, Correct Positioning, Safety Issues Teaching Recipient: Patient Teaching Methods: Demonstration Response to Teaching: Reinforcement Needed Time/GCodes Time In: 815 Time Out: 845 Total Billed Treatment Time: 30 Total Billed Treatment 1,FA20m,EX10m G Codes Necessary: No AMNA ABRAHAM PTA May 16, 2016 09:04
--- NOTE | 2016-05-16 09:16 | Cardiology Progress Note ---
Subjective Subjective/Events-last exam Patient is in bed, feeling better, complaining of left eye and jaw pain Review of Systems General: No Chills, No Night Sweats, No Fatigue, No Malaise, No Appetite, No Other HEENT: No Head Aches, No Visual Changes, No Eye Pain, No Ear Pain, No Dysphasia , No Sinus Congestion, No Post Nasal Drip, No Sore Throat, No Other Pulmonary: No Dyspnea, No Cough, No Pleuritic Chest Pain, No Other Cardiovascular: No: Chest Pain, Edema, Lt Headedness, Orthopnea, Other, Palpitations, Paroxysmal Noc. Dyspnea Objective-Cardiology Exam Last Set of Vital Signs Vital Signs 05/13/16 05/16/16 05/16/16 08:46 05:07 09:01 Temp 98.1 Pulse 75 Resp 18 B/P (MAP) 122/54 Pulse Ox 97 O2 Delivery Room Air O2 Flow Rate 4.00 Capillary Refill : I&O Intake and Output 05/16/16 00:00 Intake Total 1690 ml Balance 1690 ml Intake Oral 1690 ml # Voids 14 # Bowel Movements 3 General: Alert, Oriented X3, Cooperative, No Acute Distress HEENT: Atraumatic, PERRLA, EOMI, Mucous Memb Moist/[place] Neck: Supple, No JVD Lungs: Clear to Auscultation Heart: Regular Rate Abdomen: Normal Bowel Sounds, Soft, No Tenderness Extremities: No Edema Neuro: Other (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) Results Lab Laboratory Tests Test 05/15/16 11:46 05/15/16 16:38 05/15/16 20:35 05/16/16 05:11 Range/Units Glucometer 235 H 150 H 248 H 149 H 70-110 MG/DL A/P-Cardiology Admission Diagnosis CVA HTN HLP CAD Assessment/Plan CVA-patient having some dysphagia, expressive aphasia. Patient has been in the acute rehabilitation unit receiving physical therapy, had worsening of his symptoms. Repeat MRI of brain revealed new area of infarct. Has been maintained on Plavix and aspirin. Unknown etiology. GIANCARLO done 05/13/16 revealed no intracardiac thrombus, no evidence of intracardiac shunt on bubble contrast study, LVEF approx 60%, trivial MR and TR, technically difficult study. Telemetry showed SR with BBB. I proceeded with Linq implant with no complications, I will monitor for underlying A fib as a source of stroke Coronary artery disease-patient reports history of [place] in the remote past. Had supervisor dyer at [employer]. I will try to obtain records. States he has not seen his supervisor dyer in a long time. Hypertension-controlled. Continue to monitor blood pressure/heart rate Hyperlipidemia-maintained on statin. Diabetes mellitus-managed by primary care physician Left jaw and eye pain- jaw pain reproducible with palpation. I will defer management to PCP. Clinical Quality Measures DVT/VTE Risk/Contraindication: Risk Factor Score Per Nursin RFS Level Per Nursing on Admit: 4+=Very High GIOVANNY CARDOSO MD May 16, 2016 09:16
[2016-05-16] MEDS ORDERED: LIDOCAINE 1% INJ 20 ML (XYLOCAINE) VIAL ONE (09:51)
--- NOTE | 2016-05-16 10:27 | OPERATIVE REPORT ---
PROCEDURE PHYSICIAN: GIOVANNY CARDOSO DATE OF PROCEDURE: 05/16/2016 REVEAL DEVICE IMPLANTATION REPORT BRIEF HISTORY: Mr. Ruiz is an 86-year-old gentleman with a history of coronary artery disease, multiple CVA, occurred while on aspirin and Plavix. No source of stroke was identified. He was placed on telemetry and no arrhythmia was detected. We decided to proceed with Reveal device implantation to evaluate the source of stroke. PROCEDURE NOTE: After explaining the procedure to the patient, all pros and cons were explained. All questions were answered. The patient was in his room, no sedation was needed. Local anesthesia applied. A small skin incision was made. Then review LINQ device was implanted subcutaneously with serial number [id number]. Manual pressure applied. Dermabond applied. No complication noted. CONCLUSION: Successful Reveal device implantation with no complications. Job ID: [id number] Dictated Date: 05/16/2016 09:30:32 Radio Despatcher Date: 05/16/2016 10:22:49 / alfred
--- NOTE | 2016-05-16 11:54 | Occupational Ther Daily Note ---
OT Current Status-Daily Note Subjective Pt seen in room, up in bed, agreeable to OT. No pain mentioned. Appearance Alert, cooperative Mental Status/Objective Functional [place] Measure 0=Not Assessed/NA 4=Minimal Assistance 1=Total Assistance 5=Supervision or Setup 2=Maximal Assistance 6=Modified [place] 3=Moderate Assistance 7=Complete [place] ADL-Treatment Pt had cardiac procedure today and is not supposed to bathe for 24 hours. Pt agreeable to get dressed and groom. Functional [place] Measure 0=Not Assessed/NA 4=Minimal Assistance 1=Total Assistance 5=Supervision or Setup 2=Maximal Assistance 6=Modified [place] 3=Moderate Assistance 7=Complete IndependenceIRFPAI Quality Coding Scale 6 Independent with activity with or without an assistive device 5 Patient requires set up or clean up by helper. Patient completes activity by themselves 4 Supervision or touching assist (CGA). [place] provide cues , steadying assist 3 The helper provides less than half the effort to complete the activity 2 The helper provides more than half the effort to complete the activity 1 Dependent. The helper does all the effort to complete an activity 7 Patient refused to complete or attempt activity 9 The patient did not perform the activity before the current illness or injury 88 Not attempted due to Medical conditions or safety concerns Grooming (FIM): 5 (Pt sat next to sink, able to brush eeth with supervision only. Chose not to shave today) Upper Body (FIM): 5 (Supervision. Pt put R arm in wrong opening on shirt. Struggled and was able to solve problem and get shirt on correctly. ) Lower Body Dressing (FIM): 5 (Able to get pants on over feet and pulled up, with supervision. Stood with FWW for balance.) Toileting (FIM): 5 (SBA. Managed clothing and hygiene. Tall toilet, grab bars, FWW) Transfers (B, C, W/C) (FIM): 4 (CGA, getting up off chair. Walked to [facility] area with CGA and very little help needed due to not much trouble listing to R side. ) Toilet/Commode Transfer (FIM): 5 (SBA, tall toilet, grab bar, FWW) Other Treatment Pt walked to [facility] area with CGA, FWW, little leaning to R side. Sat in chair with arms at table, working on peg activity for R hand coordination. He was able to place and remove 1" pegs with 1/4" stem, choosing a pattern he created. Also worked on speed when taking pegs out of frame. Pt shows improvement in coordination R hand and it is evidenced by easier tooth brushing. Pt walked back to room, up in recliner, chair alarm on, all needs met. Education OT Patient Education: Progress toward Goal/Update tx plan, Purpose of tx/ functional activities Teaching Recipient: Patient Teaching Methods: Discussion Response to Teaching: Verbalize Understanding OT Short Term Goals Short Term Goals Time Frame: May 11, 2016 Eating(FIM): 5 Grooming(FIM): 5 Bathing(FIM): 4 Upper Body Dressing(FIM): 5 Lower Body Dressing(FIM): 5 Toileting(FIM): 5 Transfers (B,C,W/C) (FIM): 5 Toilet/Commode Transfer(FIM): 5 Shower Transfer(FIM): 4 Additional Short Term Goals: 1-Demonstrate ADL Tasks, 2-Verbalize Understanding , 3-ImproveStrength/[place] 1=Demonstrate adherence to instructed precautions during ADL tasks. 2=Patient will verbalize/demonstrate understanding of assistive devices/ modifications for ADL. 3=Patient will improve strength/tolerance for activity to enable patient to perform ADL's. OT Nursing Home Goals Nursing Home Goals Time Frame: May 18, 2016 Eating (FIM): 6 Eating (QC): 6 Groomin Oral Hygiene (QC): 6 Bathing(FIM): 5 Shower/Bathe Self (QC): 5 Upper Body Dressing(FIM): 6 Upper Body Dressing (QC): 6 Lower Body Dressing(FIM): 6 Lower Body Dressing (QC): 6 On/Off Footwear (QC): 6 Toileting(FIM): 6 Toileting Hygiene (QC): 6 Transfers (B,C,W/C) (FIM): 6 Toilet/Commode Transfer(FIM): 6 Toilet/Commode Transfer (QC): 6 Shower Transfer(FIM): 5 Comprehension(FIM): 3 Expression (FIM): 3 Social Interaction(FIM): 4 Additional Goals: 1-Demonstrate ADL Tasks, 2-Verbalize Understanding, 3- ImproveStrength/[place] 1=Demonstrate adherence to instructed precautions during ADL tasks. 2=Patient will verbalize/demonstrate understanding of assistive devices/ modifications for ADL. 3=Patient will improve strength/tolerance for activity to enable patient to perform ADL's. OT Education/Plan Problem List/Assessment Pt. was noted to run into items on the right side. Note right sided neglect. Discharge Recommendations Plan/Recommendations: Continue POC Treatment Plan/Plan of Care Patient would benefit from OT for education, treatment and training to promote independence in ADL's, mobility, safety and/or upper extremity function for ADL' s. Plan of Care: ADL Retraining, Functional Mobility, UE Funct Exercise/Act Treatment Duration: May 18, 2016 Visits Per Week: 10-12 Minutes/Day (M-F): 60-90 Minutes/Day (Sat/Fierro): PRN Agreement: Yes Rehab Potential: Fair Time/GCodes Start Time: 10:30 Stop Time: 11:15 Total Time Billed (hr/min): 45 Billed Treatment Time visit, 20 minutes ADL, 25 minutes neuromotor DARELL GALVEZ OT May 16, 2016 11:54
--- NOTE | 2016-05-16 12:38 | Speech Therapy Daily Note ---
Speech Daily Progress Note Subjective The patient was seated upright in bed upon entrance. The patient was agreeable to participate in speech and language therapy on this date. Objective Orientation: The patient accurately stated the month, date, day of week, and year (independently with additional processing time). The patient continues to demonstrate imprecise articulation, remaining approximately 60% intelligible in known contexts. Bilabial Single and Multi-Syllabic Words: The patient demonstrated 60% accuracy with single syllable /p/ words (moderate clinician verbal cueing and modeling). The patient's accuracy continued to multi-syllabic words. Providing the patient with a visual of the words appeared to increase accuracy. Phrase Completion: The patient demonstrated less than 50% accuracy with phrase completion with maximum clinician verbal cueing. Assessment Assessment Current Status: Poor Progress Treatment Plan Continue Plan of Care Speech Short Term Goals Short Term Goals Short Term Goals 1. The patient will state names of five common objects and five common pictures with 80% accuracy and moderate clinician cueing. 2. The patient will repeat single words and short phrases with 70% accuracy with moderate clinician verbal cueing. 3. The patient will demonstrated 90% accuracy with simple yes/no questions. 4. The patient will display 90% accuracy with simple, one-step commands. Time Frame-STG: Three Weeks Speech Ecommerce Merchandising Manager Goals Ecommerce Merchandising Manager Goals 1. The patient will demonstrate improved receptive and expressive communication skills for increased safety and function with ADL's. Time Frame: Two Months Comprehension: 3 Expression: 3 Social Interaction: 4 Speech-Plan Treatment Plan Speech Therapy Treatment Plan: Continue Plan of Care Continue skilled speech therapy to target functional expressive communication. Treatment Duration: June 29, 2016 # of days/week Five Visits Per Week: Five Minutes/Day (M-F): 30 to 45 Rehab Potential: Guarded Safety Risks/Education Teaching Recipient: Patient Teaching Methods: Demonstration, Handout, Discussion Response to Teaching: Return Demonstration, Reinforcement Needed Education Topics Provided: Bilabial Practice Sheets Time Speech Therapy Time In: 09:45 Speech Therapy Time Out: 10:30 Total Billed Time: 45 Billed Treatment Time NatalieFRANNIEAUBREY ST May 16, 2016 12:38
[2016-05-16 12:43] VITALS: BP 113/65
--- NOTE | 2016-05-16 13:24 | Physical Therapy Daily Note ---
PT Daily Note-Current Subjective Pt. up in recliner with nearly full plate of cold food in front of him. Pt. with furrowed brow, lifts right hand in air and motions for this GREEN BUILDING ENERGY ENGINEER to exit as he shakes his head "no". Eyes whinced, this GREEN BUILDING ENERGY ENGINEER inquires as to what is wrong, pt. points repeatedly to left eye, cheek and jaw and expresses pain. This GREEN BUILDING ENERGY ENGINEER asking and giving choices for pain level pt. inidicates 11/22. This was shared with nurse who explains that she has given him pain meds and has contacted Dr. Mitchell x2 with no other course of action ordered. Pt. agrees to lay down with encouragement. Pain Numeric Pain Scale: 10-Worst Possible Pain Location: Left Location Body Site: Cheek Pain Description: Twisting Appearance pt. appears to be in severe pain and is very distraught Transfers Functional [place] Measure 0=Not Assessed/NA 4=Minimal Assistance 1=Total Assistance 5=Supervision or Setup 2=Maximal Assistance 6=Modified [place] 3=Moderate Assistance 7=Complete IndependenceIRFPAI Quality Coding Scale 6 Independent with activity with or without an assistive device 5 Patient requires set up or clean up by helper. Patient completes activity by themselves 4 Supervision or touching assist (CGA). [place] provide cues , steadying assist 3 The helper provides less than half the effort to complete the activity 2 The helper provides more than half the effort to complete the activity 1 Dependent. The helper does all the effort to complete an activity 7 Patient refused to complete or attempt activity 9 The patient did not perform the activity before the current illness or injury 88 Not attempted due to Medical conditions or safety concerns TRFd recliner to bed with CGA to min assist. sit to supine min assist Assessment Current Status: Refused Treatment BP 119/68, HR 68, [id number]% PT Short Term Goals Short Term Goals Time Frame: May 11, 2016 Transfers (B,C,W/C) (FIM): 5 Gait (FIM): 5 Distance (FIM): 3=150 ft Stairs (FIM): 4 PT Fci Goals Aluminizer Goals PT Aluminizer Goals Time Frame: May 25, 2016 Transfers (B,C,W/C) (FIM): 7 Sit to Lying (QC): 6 Lying-Sitting on Side/Bed(QC): 6 Sit to Stand (QC): 6 Rollin Roll Left to Right (QC): 6 Chair/Tok-gu-Cihpg Xfer(QC): 6 Car Transfer (QC): 6 Does the Patient Walk: Yes Gait (FIM): 6 Gait distance (FIM): 3=150 ft Walk 10 feet (QC): 6 Walk 10ft-Uneven Surface(QC): 6 Walk 50ft with 2 Turns (QC): 6 Walk 150 ft (QC): 6 Gait Assistive Device: FWW Does the Pt use WC or Scooter?: No Stairs (FIM): 6 # of Steps: 12 1 Step (curb) (QC): 6 4 Steps (QC): 6 12 Steps (QC): 6 Picking up an Object (QC): 6 PT Plan Treatment/Plan Treatment Plan: Continue Plan of Care Treatment Plan: Bed Mobility, Education, Functional Activity Gamaliel, Functional Strength, Group Therapy, Gait, Safety, Therapeutic Exercise, Transfers Treatment Duration: May 25, 2016 Visits Per Week: 10-15 Minutes/Day (M-F): 60-90 Minutes/Day (Sat/Fierro): prn Time/GCodes Time In: 1300 Time Out: 1320 Total Billed Treatment Time: 20 Total Billed Treatment 1,FA20m G Codes Necessary: AMNA Espinal GREEN BUILDING ENERGY ENGINEER May 16, 2016 13:24
--- NOTE | 2016-05-16 13:35 | Occ Therapy Progress Note ---
Therapy Progress Note 1330 Pt seen in room, in bed, eyes closed. When asked, said, "No therapy" and pointed/indicated pain in L eye/cheek area. Pain rated 10/10. Nursing has been notified. DARELL GALVEZ OT May 16, 2016 13:35
[2016-05-16 17:24] VITALS: BP 109/59
--- NOTE | 2016-05-16 18:23 | Consultation ---
History of Present Illness History of Present Illness Patient Consulted On(josie/time) 05/16/16 18:12 Consulted on Pt for Left Jaw pain. Pt does have expressive aphasia so history was difficult to obtain. Pt c/o of pain in Left Jaw/Check area for at least last 2 days Nurse stated he has been treated with lidocaine rinse and tramadol- tramadol which is new and did seem to help Pt is also c/o pain in left side of face, around eye/nose area and maxillary check, and then jaw area stated burning pain Physical exam Pt sitting up in chair eating dinner. Face: no swelling or redness noted Oral exam: normal mucosa, left parotid area nontender with exam, left sublingual area nontender with exam, Left lower gum line with redness around back teeth, tenderness with touch Neck: supple with no masses or adenopathy Plan: Discussed with Dr. Guerra - will start on PenVK 500mg [id number] x 10 days for dental infection/abscess Would recommend dental referral either inpatient or outpatient for evaluation and follow up Reviewed last CT head showed minimal sinus thickening in max. sinus so I do not think this is the cause of the Left sided facial pain that he is having Left side facial pain could be neuralgia or referred dental pain Date of Admission Reason for Visit: CVA Allergies and Home Medications Allergies Coded Allergies: No Known Drug Allergies (Unverified , 01/16/11) Home Medications Aspirin 81 Mg Tab.chew, 81 MG PO HS, (Reported) Clopidogrel Bisulfate 75 Mg Tablet, 75 MG PO DAILY, (Reported) Cyanocobalamin (Vitamin B-12) 2,500 Mcg Tablet, 1,250 MCG PO DAILY, (Reported) TAKES 1/2 OF A (2,500 MCG) TABLET Donepezil HCl 10 Mg Tablet, 10 MG PO HS, (Reported) Doxazosin Mesylate 8 Mg Tablet, 4 MG PO HS, (Reported) TAKES 1/2 OF A (8 MG) TABLET Finasteride 5 Mg Tablet, 5 MG PO HS, (Reported) Fish Oil/Dha/Epa 1 Each Capsule, 2,400 MG PO BID, (Reported) TAKES 2 (1,200 MG) CAPSULES Glyburide 5 Mg Tablet, 5 MG PO BIDAC, (Reported) Lisinopril 40 Mg Tablet, 40 MG PO DAILY, (Reported) Phenytoin Sodium Extended 100 Mg Capsule, 200 MG PO BID, (Reported) TAKES 2 (100 MG) CAPSULES Simvastatin 40 Mg Tablet, 20 MG PO HS, (Reported) TAKES 1/2 OF A (40 MG) TABLET Past Mpqvjsb-Xdoxaq-Zehtxs Hx Patient Social History Alcohol Use: Occasionally Uses Recreational Drug Use: No Smoking Status: Former Smoker Recent Foreign Travel: No Contact w/Someone Who Travel: No Recent Infectious Disease Expo: No Recent Hopitalizations: No Physical Abuse Screen: No Sexual Abuse: No Immunizations Up To Date PED Vaccines UTD: Yes Date of Pneumonia Vaccine: Dec 15, 2015 Date of Influenza Vaccine: Oct 15, 2015 Seasonal Allergies Seasonal Allergies: No Surgeries HX Surgeries: Yes (CARDIAC CATH, STENT X 1) Surgeries: Cardiac, Coronary Stent Respiratory Hx Respiratory Disorders: No Cardiovascular Hx Cardiac Disorders: Yes Cardiac Disorders: Coronary Artery Disease, Heart Attack, Hypertension Neurological Hx Neurological Disorders: Yes Neurological Disorders: Neuropathy, TIA Reproductive System Sexually Transmitted Disease: No HIV/AIDS: No Genitourinary Hx Genitourinary Disorders: No Gastrointestinal Hx Gastrointestinal Disorders: No Musculoskeletal Hx Musculoskeletal Disorders: No Endocrine Hx Endocrine Disorders: Yes Endocrine Disorders: Diabetes, Non-Insulin dep HEENT HX ENT Disorders: No HEENT Disorders: Cataract Loss of Vision: Denies Hearing Impairment: Denies Cancer Hx Cancer: No Psychosocial Hx Psychiatric Problems: No Integumentary HX Skin/Integumentary Disorder: No Blood Transfusions Hx Blood Disorders: No Adverse Reaction to a Blood Tr: No Family Medical History Significant Family History: No Pertinent Family Hx Family Medial History: Diabetes mellitus 19 MOTHER FH: congestive heart failure 19 MOTHER Headache disorder Hypertension 19 FATHER Myocardial infarction 19 FATHER Physical Exam-General Problems Physical Exam Vital Signs Vital Sign - Last 12Hours 05/10/16 05/13/16 06:00 08:12 Temp 99.0 Pulse 61 Resp 20 B/P (MAP) 131/78 Pulse Ox 93 O2 Delivery Room Air O2 Flow Rate 4.00 Capillary Refill : Clinical Quality Measures DVT/VTE Risk/Contraindication: Risk Factor Score Per Nursin RFS Level Per Nursing on Admit: 4+=Very High DANIEL KEYES ESCORT BLIND May 16, 2016 18:23
[2016-05-16] MEDS: PENICILLIN V K 250 MG TAB PO SCH (19:47)
--- NOTE | 2016-05-16 19:58 | PM & R (SOAP) Progress Note ---
Subjective Subjective/Events-last exam Patient was seen in his room this evening Discussed case with RN earlier Patient again c/o rt sided facial pain ENT has Seen Appreciate their note and orders Patient SBA for transfers Using toilet in his room with assistance Review of Systems HEENT: Other (as per above) Objective Exam Last Set of Vital Signs Vital Signs Date Time Temp Pulse Resp B/P (MAP) Pulse Ox O2 Delivery O2 Flow Rate FiO2 05/16/16 17:24 96.9 55 16 109/59 97 Room Air 05/13/16 08:46 4.00 Capillary Refill : I&O Intake and Output 05/16/16 00:00 Intake Total 1690 ml Balance 1690 ml Intake Oral 1690 ml # Voids 14 # Bowel Movements 3 General: Alert, Oriented X3, Cooperative, No Acute Distress HEENT: Atraumatic, PERRLA, EOMI, Mucous Memb Moist/[place], Other (possible periodontal inflammation/infection) Neck: Supple, No JVD Lungs: Clear to Auscultation Heart: Regular Rate Abdomen: Normal Bowel Sounds, Soft, No Tenderness Extremities: No Edema Neuro: Other (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) Results Lab Laboratory Tests 05/13/16 20:50: Glucometer 167H 05/14/16 05:16: Glucometer 150H 05/14/16 11:20: Glucometer 172H 05/14/16 15:58: Glucometer 234H 05/14/16 20:16: Glucometer 127H 05/15/16 06:28: Glucometer 173H 05/15/16 11:46: Glucometer 235H 05/15/16 16:38: Glucometer 150H 05/15/16 20:35: Glucometer 248H 05/16/16 05:11: Glucometer 149H 05/16/16 10:55: Glucometer 217H 05/16/16 15:34: Glucometer 158H Assessment/Plan Assessment 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 with a set back with increased RT HP and Aphasia DM controlled HTN controlled Left facial pain-possible dental pain/periodontal pain Plan Continue PT/OT/ST -as tolerated-Has missed some therapy time the past 2 days due to recurrent stroke Monitor Blood pressure and Accucheks and adjust meds as needed Current labs and therapy notes reviewed F/U re Cardiology consult and orders-GIANCARLO done appreciate results The patient is currently on ASA and Plavix Discussed case/GIANCARLO with patients daughter last week F/U with ENT re any further recs Next Team Conference 05/18/16 Appreciate Cardiology note-Reveal device placed RACHAEL THEODORE MD May 16, 2016 19:58
[2016-05-16] MEDS: FINASTERIDE (PROSCAR) 5 MG TAB PO SCH (20:47)
[2016-05-16] MEDS: SIMvastatin 20 MG (ZOCOR) TAB PO SCH (20:47)
[2016-05-16] MEDS: doxAzosin 4 MG (CARDURA) TAB PO SCH (20:47)
[2016-05-16] MEDS: DONEPEZIL 10 MG (ARICEPT) TAB PO SCH (20:47)
[2016-05-17] MEDS: PENICILLIN V K 250 MG TAB PO SCH ×4 (00:52→16:04)
[2016-05-17 05:19] VITALS: BP 142/67
[2016-05-17] MEDS: LIDOCAINE 2% VISCOUS 15 ML UDC PO SCH ×3 (06:18→16:04)
[2016-05-17] MEDS: OMEGA 3 (FISH OIL) 1000 MG CAP PO SCH ×2 (06:18→16:04)
[2016-05-17] MEDS: glyBURIDE 5 MG (MICRONASE) TAB PO SCH ×2 (06:18→16:04)
--- NOTE | 2016-05-17 08:21 | Cardiology Progress Note ---
Subjective Subjective/Events-last exam Patient is with PT. Continues to complain of left jaw pain. Denies any CP or dyspnea. Review of Systems General: No Night Sweats, No Fatigue, No Malaise HEENT: No Visual Changes, No Dysphasia Pulmonary: No Dyspnea, No Cough Cardiovascular: No: Chest Pain, Palpitations Gastrointestinal: No: Abdominal Pain, Nausea, Vomiting Genitourinary: No Dysuria, No Frequency Musculoskeletal: No: back pain, neck pain Neurological: Change in speech, Weakness, No: Confusion (Right HP) Objective-Cardiology Exam Last Set of Vital Signs Vital Signs 05/13/16 05/17/16 08:46 05:19 Temp 97.1 Pulse 67 Resp 18 B/P (MAP) 142/67 Pulse Ox 96 O2 Delivery Room Air O2 Flow Rate 4.00 Capillary Refill : I&O Intake and Output 05/17/16 00:00 Intake Total 1710 ml Balance 1710 ml Intake Oral 1710 ml # Voids 7 General: Alert, Oriented X3, Cooperative, No Acute Distress HEENT: Atraumatic, PERRLA, EOMI, Mucous Memb Moist/[place], Other (possible periodontal inflammation/infection) Neck: Supple, No JVD Lungs: Clear to Auscultation Heart: Regular Rate Abdomen: Normal Bowel Sounds, Soft, No Tenderness Extremities: No Edema Neuro: Other (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) A/P-Cardiology Admission Diagnosis CVA HTN HLP CAD Assessment/Plan CVA-patient having some dysphagia, expressive aphasia. Patient has been in the acute rehabilitation unit receiving physical therapy, had worsening of his symptoms. Repeat MRI of brain revealed new area of infarct. Has been maintained on Plavix and aspirin. Unknown etiology. GIANCARLO done 05/13/16 revealed no intracardiac thrombus, no evidence of intracardiac shunt on bubble contrast study, LVEF approx 60%, trivial MR and TR, technically difficult study. Telemetry showed SR with BBB. S/P LINQ implantation, monitor for underlying A fib as a source of stroke. Coronary artery disease-patient reports history of CA in the remote past. 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 I will try to obtain records. States he has not seen his dinkey engine operator in a long time. Hypertension-controlled. Continue to monitor blood pressure/heart rate Hyperlipidemia-maintained on statin. Diabetes mellitus-managed by primary care physician Left jaw and eye pain- jaw pain reproducible with palpation. Evaluated by ENT. Placed on antibiotic for possible dental infection. Continue to monitor. Clinical Quality Measures DVT/VTE Risk/Contraindication: Risk Factor Score Per Nursin RFS Level Per Nursing on Admit: 4+=Very High EMMA DONOVAN May 17, 2016 08:21
--- NOTE | 2016-05-17 08:49 | Physical Therapy Daily Note ---
PT Daily Note-Current Subjective Patient sitting EOB with nurse pre tx, agrees to PT, has no complaints of pain. Appearance Patient in recliner post tx with nurse call, tray, chair alarm on, all needs met. Mental Status Patient Orientation: Unable to Assess Transfers Functional [place] Measure 0=Not Assessed/NA 4=Minimal Assistance 1=Total Assistance 5=Supervision or Setup 2=Maximal Assistance 6=Modified [place] 3=Moderate Assistance 7=Complete IndependenceIRFPAI Quality Coding Scale 6 Independent with activity with or without an assistive device 5 Patient requires set up or clean up by helper. Patient completes activity by themselves 4 Supervision or touching assist (CGA). Damon provide cues , steadying assist 3 The helper provides less than half the effort to complete the activity 2 The helper provides more than half the effort to complete the activity 1 Dependent. The helper does all the effort to complete an activity 7 Patient refused to complete or attempt activity 9 The patient did not perform the activity before the current illness or injury 88 Not attempted due to Medical conditions or safety concerns Transfers (B, C, W/C) (FIM): 5 Sit to/from Stand: 5 cues for safety and hand placement Gait Training Gait (FIM): 5 Distance: 150'x2 Gait Level of Assist: 5 Gait Persons Needed: 1 Gait Assistive Device: FWW occasional cues for obstacles due to right neglect Stair Training Stair Training: Handrails/: 2 handrails Stairs (FIM): 2 #of Steps: 8 Stairs: Pattern: Step to Level of Assist: 4 cues for safety and step pattern Exercises LAQ alternating for 5 min with 2# ankle weights NuStep Minutes: 15 NuStep Workload: 5 Treatments transfers, ambulation, functional strengthening, stair training Assessment Current Status: Fair Progress PT Short Term Goals Short Term Goals Time Frame: May 11, 2016 Transfers (B,C,W/C) (FIM): 5 Gait (FIM): 5 Distance (FIM): 3=150 ft Stairs (FIM): 4 PT Chief Dispatcher Service Goals Chief Dispatcher Service Goals PT Chief Dispatcher Service Goals Time Frame: May 25, 2016 Transfers (B,C,W/C) (FIM): 7 Sit to Lying (QC): 6 Lying-Sitting on Side/Bed(QC): 6 Sit to Stand (QC): 6 Rollin Roll Left to Right (QC): 6 Chair/Uxa-eg-Jybxx Xfer(QC): 6 Car Transfer (QC): 6 Does the Patient Walk: Yes Gait (FIM): 6 Gait distance (FIM): 3=150 ft Walk 10 feet (QC): 6 Walk 10ft-Uneven Surface(QC): 6 Walk 50ft with 2 Turns (QC): 6 Walk 150 ft (QC): 6 Gait Assistive Device: FWW Does the Pt use WC or Scooter?: No Stairs (FIM): 6 # of Steps: 12 1 Step (curb) (QC): 6 4 Steps (QC): 6 12 Steps (QC): 6 Picking up an Object (QC): 6 PT Plan Problem List Problem List: Activity Tolerance, Functional Strength, Safety, Balance, Gait, Transfer Treatment/Plan Treatment Plan: Continue Plan of Care Treatment Plan: Bed Mobility, Education, Functional Activity Gamaliel, Functional Strength, Group Therapy, Gait, Safety, Therapeutic Exercise, Transfers Treatment Duration: May 25, 2016 Visits Per Week: 10-15 Minutes/Day (M-F): 60-90 Minutes/Day (Sat/Fierro): prn Safety Risks/Education Patient Education: Gait Training, Transfer Techniques, Steps, Safety Issues Teaching Recipient: Patient Teaching Methods: Demonstration, Discussion Response to Teaching: Reinforcement Needed Time/GCodes Time In: 800 Time Out: 845 Total Billed Treatment Time: 45 Total Billed Treatment 1 visit GT 15 min EX 30 min CORY STEIN PT May 17, 2016 08:49
[2016-05-17] MEDS: CYANOCOBALAMIN 500 MCG TAB (VITAMIN B-12) PO SCH (08:59)
[2016-05-17] MEDS: CLOPIDOGREL 75 MG (PLAVIX) TABLET PO SCH (09:00)
[2016-05-17] MEDS: ASPIRIN 81 MG CHEW (CHILDREN'S ASA) PO SCH (09:00)
[2016-05-17] MEDS: PHENYTOIN 100 MG (DILANTIN) CAP PO SCH ×2 (09:00→19:53)
[2016-05-17] MEDS: lisINopril 20 MG (ZESTRIL) TAB PO SCH (09:02)
--- NOTE | 2016-05-17 09:17 | Speech Therapy Daily Note ---
Speech Daily Progress Note Subjective The patient was seated upright in recliner upon entrance. The patient was agreeable to speech and language therapy on this date. Objective - To note: The patient demonstrated increased difficulty on this date, as well as, increased frustration. The patient verbalized limited information and responses to the clinician regardless of maximum clinician cueing. - Confrontational Naming: The patient demonstrated 45% accuracy (+9/20) with confrontational naming on this date. Phonemic cues were mildly helpful in increasing accuracy. - Orientation: The patient required maximum cueing for orientation information on this date. The patient was able to repeat the month, date, day, and year following clinician direct modeling. Assessment Assessment Current Status: Poor Progress Treatment Plan Continue Plan of Care Communication Comprehension: 3 Expression: 1 Social Cognition Social Interaction: 2 Problem Solvin Memory: 2 Speech Short Term Goals Short Term Goals Short Term Goals 1. The patient will state names of five common objects and five common pictures with 80% accuracy and moderate clinician cueing. 2. The patient will repeat single words and short phrases with 70% accuracy with moderate clinician verbal cueing. 3. The patient will demonstrated 90% accuracy with simple yes/no questions. 4. The patient will display 90% accuracy with simple, one-step commands. Time Frame-STG: Three Weeks Speech Custodial Goals Licensed Funeral Director And Embalmer Goals 1. The patient will demonstrate improved receptive and expressive communication skills for increased safety and function with ADL's. Time Frame: Two Months Comprehension: 3 Expression: 3 Social Interaction: 4 Speech-Plan Treatment Plan Speech Therapy Treatment Plan: Continue Plan of Care Continue skilled speech therapy to target functional expressive communication. Treatment Duration: June 29, 2016 # of days/week Five. Visits Per Week: Five Minutes/Day (M-F): 30 to 45 Rehab Potential: Guarded Safety Risks/Education Teaching Recipient: Patient Teaching Methods: Demonstration, Discussion Response to Teaching: Return Demonstration, Reinforcement Needed Education Topics Provided: Expression Strategies Time Speech Therapy Time In: 08:45 Speech Therapy Time Out: 09:15 Total Billed Time: 30 Billed Treatment Time NatalieNENAMALLORY MARYDashaAUBREY May 17, 2016 09:17
--- NOTE | 2016-05-17 12:35 | Progress Note-Hospitalist ---
Standard Progress Note Progress Notes/Assess & Plan Date Seen 05/17/16 Assess & Plan/Chief Complaint Patient visit secondary to nursing request. Apparently the patient has begun to complain of pain in his left eye. Etiology is not clear. He is not able to give enough history to be helpful. Dr. Guerra has ordered a CT to evaluate. Tonometry may be in order as well. Physical exam: The eyes appear normal bilaterally. Lungs are clear to auscultation. CV is regular. Impression: Status post CVA in the same distribution 3. Hypertension. Left eye pain. Plan: Await CT. Continue physical therapy. MANJU DASILVA MD May 17, 2016 12:35
--- NOTE | 2016-05-17 12:47 | Occupational Ther Daily Note ---
OT Current Status-Daily Note Subjective Pt seen in room, up in recliner, agreeable to OT. No pain mentioned. Appearance Alert, cooperative Mental Status/Objective Functional [place] Measure 0=Not Assessed/NA 4=Minimal Assistance 1=Total Assistance 5=Supervision or Setup 2=Maximal Assistance 6=Modified [place] 3=Moderate Assistance 7=Complete [place] Problem Solving(FIM): 4 (Occasional assist with problem solving during ADLs ) ADL-Treatment Because pt had cardiac procedure yesterday, did sponge bath only - will do shower tomorrow. Pt walked to bathroom for ADLS with little difficulty with leaning to the right side but still required CGA, especially with turning toward his left side. Functional [place] Measure 0=Not Assessed/NA 4=Minimal Assistance 1=Total Assistance 5=Supervision or Setup 2=Maximal Assistance 6=Modified [place] 3=Moderate Assistance 7=Complete IndependenceIRFPAI Quality Coding Scale 6 Independent with activity with or without an assistive device 5 Patient requires set up or clean up by helper. Patient completes activity by themselves 4 Supervision or touching assist (CGA). [place] provide cues , steadying assist 3 The helper provides less than half the effort to complete the activity 2 The helper provides more than half the effort to complete the activity 1 Dependent. The helper does all the effort to complete an activity 7 Patient refused to complete or attempt activity 9 The patient did not perform the activity before the current illness or injury 88 Not attempted due to Medical conditions or safety concerns Grooming (FIM): 5 (Brushed teeth, shaved, brushed hair, all with supervision and occasional assist for sequencing and problem solving) Bathing (FIM): 5 (Pt washed and dried all parts with sponge bath at sink, setup , supervision during standing components. Stood with SBA when washing klaus/ bottom) Upper Body (FIM): 5 (setup. Oriented shirt without cues) Lower Body Dressing (FIM): 5 (SBA to pull pants up when leaning against the sink, balancing on counter top. Doffed and donned slipper socks with setup) Toileting (FIM): 5 (Managed clothing and hygiene with SBA, tall toilet, grab bars, FWW) Transfers (B, C, W/C) (FIM): 5 (Required skilled cues for hand placement and to get into position before sitting down, FWW) Toilet/Commode Transfer (FIM): 5 (SBA, tall toilet, grab bars, FWW) Other Treatment Pt walked with CGA, FWW to meat cutter area. Did 8 minutes bilat activity on arm bike set at 10W resistance, working on coordination, bilat integration, pt able to maintain R hand on arm job compositor throughout activity. Only required one brief recovery break. Pt walked back to room with CGA, FWW and was left up in recliner , chair alarm on, all needs met. Education OT Patient Education: Progress toward Goal/Update tx plan, Purpose of tx/ functional activities, Transfer techniques Teaching Recipient: Patient Teaching Methods: Demonstration, Discussion Response to Teaching: Reinforcement Needed OT Short Term Goals Short Term Goals Time Frame: May 11, 2016 Eating(FIM): 5 Grooming(FIM): 5 Bathing(FIM): 4 Upper Body Dressing(FIM): 5 Lower Body Dressing(FIM): 5 Toileting(FIM): 5 Transfers (B,C,W/C) (FIM): 5 Toilet/Commode Transfer(FIM): 5 Shower Transfer(FIM): 4 Additional Short Term Goals: 1-Demonstrate ADL Tasks, 2-Verbalize Understanding , 3-ImproveStrength/[place] 1=Demonstrate adherence to instructed precautions during ADL tasks. 2=Patient will verbalize/demonstrate understanding of assistive devices/ modifications for ADL. 3=Patient will improve strength/tolerance for activity to enable patient to perform ADL's. OT City Marshal Goals City Marshal Goals Time Frame: May 18, 2016 Eating (FIM): 6 Eating (QC): 6 Groomin Oral Hygiene (QC): 6 Bathing(FIM): 5 Shower/Bathe Self (QC): 5 Upper Body Dressing(FIM): 6 Upper Body Dressing (QC): 6 Lower Body Dressing(FIM): 6 Lower Body Dressing (QC): 6 On/Off Footwear (QC): 6 Toileting(FIM): 6 Toileting Hygiene (QC): 6 Transfers (B,C,W/C) (FIM): 6 Toilet/Commode Transfer(FIM): 6 Toilet/Commode Transfer (QC): 6 Shower Transfer(FIM): 5 Comprehension(FIM): 3 Expression (FIM): 3 Social Interaction(FIM): 4 Additional Goals: 1-Demonstrate ADL Tasks, 2-Verbalize Understanding, 3- ImproveStrength/[place] 1=Demonstrate adherence to instructed precautions during ADL tasks. 2=Patient will verbalize/demonstrate understanding of assistive devices/ modifications for ADL. 3=Patient will improve strength/tolerance for activity to enable patient to perform ADL's. OT Education/Plan Problem List/Assessment Pt. was noted to run into items on the right side. Note right sided neglect. Discharge Recommendations Plan/Recommendations: Continue POC Treatment Plan/Plan of Care Patient would benefit from OT for education, treatment and training to promote independence in ADL's, mobility, safety and/or upper extremity function for ADL' s. Plan of Care: ADL Retraining, Functional Mobility, UE Funct Exercise/Act Treatment Duration: May 18, 2016 Visits Per Week: 10-12 Minutes/Day (M-F): 60-90 Minutes/Day (Sat/Fierro): PRN Agreement: Yes Rehab Potential: Guarded Time/GCodes Start Time: 10:05 Stop Time: 11:20 Total Time Billed (hr/min): 75 Billed Treatment Time visit, 45 minutes ADL, 30 minutes neuromotor DARELL GALVEZ OT May 17, 2016 12:47
--- NOTE | 2016-05-17 14:02 | Diagnostic Imaging Report ---
PROCEDURE: CT sinuses without contrast TECHNIQUE: Multiple contiguous axial images were obtained through the sinuses without the use of intravenous contrast. Coronal and sagittal reformations were then performed. INDICATION: Facial pain. FINDINGS: There are no previous CT sinus examinations available for comparison. The MRI brain exam performed on 05/11/2016 failed to show any evidence for active sinus disease. On this study, the sinuses are generally clear and well aerated. There is very mild mucosal thickening of the ethmoid sinuses. There is also 5 mm mucosal thickening of the floor of the right maxillary antrum, and there appears to be a small 7 x 7 mm retention cyst in the floor of the left maxillary antrum. The ostiomeatal complexes are patent. The frontal and sphenoid sinuses are generally clear. The nasal septum is slightly bowed to the right. The orbits are symmetrical and within normal limits. The osseous structures, where visualized, are intact. The intracranial contents show no sign of an acute abnormality. IMPRESSION: There is mild bilateral ethmoid and right maxillary sinusitis. There is also small retention cyst in the floor of the left maxillary antrum. The sinuses are otherwise clear. Dictated by: Dictated on workstation # [id number]
--- NOTE | 2016-05-17 14:09 | PM & R (SOAP) Progress Note ---
Subjective Subjective/Events-last exam Patient was seen in his room this noonhour Discussed case with RN ORal/facial pain improved with antibiotic DR Guerra ENT has ordered CT sinuses Patient CGA for transfers Objective Exam Last Set of Vital Signs Vital Signs Date Time Temp Pulse Resp B/P (MAP) Pulse Ox O2 Delivery O2 Flow Rate FiO2 05/17/16 05:19 97.1 67 18 142/67 96 Room Air 05/13/16 08:46 4.00 Capillary Refill : I&O Intake and Output 05/17/16 00:00 Intake Total 1710 ml Balance 1710 ml Intake Oral 1710 ml # Voids 7 General: Alert, Oriented X3, Cooperative, No Acute Distress HEENT: Atraumatic, PERRLA, EOMI, Mucous Memb Moist/[place], Other (possible periodontal inflammation/infection) Neck: Supple, No JVD Lungs: Clear to Auscultation Heart: Regular Rate Abdomen: Normal Bowel Sounds, Soft, No Tenderness Extremities: No Edema Neuro: Other (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) Results Lab Laboratory Tests 05/14/16 15:58: Glucometer 234H 05/14/16 20:16: Glucometer 127H 05/15/16 06:28: Glucometer 173H 05/15/16 11:46: Glucometer 235H 05/15/16 16:38: Glucometer 150H 05/15/16 20:35: Glucometer 248H 05/16/16 05:11: Glucometer 149H 05/16/16 10:55: Glucometer 217H 05/16/16 15:34: Glucometer 158H 05/16/16 20:37: Glucometer 223H 05/17/16 05:48: Glucometer 156H 05/17/16 10:57: Glucometer 189H Assessment/Plan Assessment 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 with a set back with increased RT HP and Aphasia DM controlled HTN controlled Left facial/oral pain-possible dental pain/periodontal pain/sinus pain Plan Continue PT/OT/ST -as tolerated-Has missed some therapy time the past 2 days due to recurrent stroke Monitor Blood pressure and Accucheks and adjust meds as needed Current labs and therapy notes reviewed F/U re Cardiology consult and orders-GIANCARLO done appreciate results The patient is currently on ASA and Plavix Discussed case/GIANCARLO with patients daughter last week F/U with ENT re any further recs-done CT Sinuses ordered Next Team Conference tomorrow 05/18/16 Appreciate Cardiology note-Reveal device placed RACHAEL THEODORE MD May 17, 2016 14:09
--- NOTE | 2016-05-17 14:29 | Physical Therapy Daily Note ---
PT Daily Note-Current Subjective Patient in recliner pre tx, agrees to PT, no complaints of pain. Appearance Patient on toilet post tx with nurse call, instructed to call nurse when he is done, there is a nurse stationed right outside of his room, nurse notified patient is on toilet. Mental Status Patient Orientation: Unable to Assess Transfers Functional [place] Measure 0=Not Assessed/NA 4=Minimal Assistance 1=Total Assistance 5=Supervision or Setup 2=Maximal Assistance 6=Modified [place] 3=Moderate Assistance 7=Complete IndependenceIRFPAI Quality Coding Scale 6 Independent with activity with or without an assistive device 5 Patient requires set up or clean up by helper. Patient completes activity by themselves 4 Supervision or touching assist (CGA). [place] provide cues , steadying assist 3 The helper provides less than half the effort to complete the activity 2 The helper provides more than half the effort to complete the activity 1 Dependent. The helper does all the effort to complete an activity 7 Patient refused to complete or attempt activity 9 The patient did not perform the activity before the current illness or injury 88 Not attempted due to Medical conditions or safety concerns Transfers (B, C, W/C) (FIM): 4 Sit to/from Stand: 4 CGA with sit to stand Gait Training Gait (FIM): 4 Distance: 500', 150' Gait Level of Assist: 4 Gait Persons Needed: 1 Gait Assistive Device: FWW Patient seems a little unsteady this afternoon so CGA needed Exercises Standing: Hip Abduction, Heel/toe raises, Marching, Mini squats Standing Reps: 20 Treatments transfers, ambulation, functional strengthening Assessment Current Status: Fair Progress improving endurance, but he did seem a little unsteady this afternoon. PT Short Term Goals Short Term Goals Time Frame: May 11, 2016 Transfers (B,C,W/C) (FIM): 5 Gait (FIM): 5 Distance (FIM): 3=150 ft Stairs (FIM): 4 PT Confectionery Maker Goals Chcf Goals PT Chcf Goals Time Frame: May 25, 2016 Transfers (B,C,W/C) (FIM): 7 Sit to Lying (QC): 6 Lying-Sitting on Side/Bed(QC): 6 Sit to Stand (QC): 6 Rollin Roll Left to Right (QC): 6 Chair/Wgy-by-Jrtep Xfer(QC): 6 Car Transfer (QC): 6 Does the Patient Walk: Yes Gait (FIM): 6 Gait distance (FIM): 3=150 ft Walk 10 feet (QC): 6 Walk 10ft-Uneven Surface(QC): 6 Walk 50ft with 2 Turns (QC): 6 Walk 150 ft (QC): 6 Gait Assistive Device: FWW Does the Pt use WC or Scooter?: No Stairs (FIM): 6 # of Steps: 12 1 Step (curb) (QC): 6 4 Steps (QC): 6 12 Steps (QC): 6 Picking up an Object (QC): 6 PT Plan Problem List Problem List: Activity Tolerance, Functional Strength, Safety, Balance, Gait, Transfer, Bed Mobility Treatment/Plan Treatment Plan: Continue Plan of Care Treatment Plan: Bed Mobility, Education, Functional Activity Gamaliel, Functional Strength, Group Therapy, Gait, Safety, Therapeutic Exercise, Transfers Treatment Duration: May 25, 2016 Visits Per Week: 10-15 Minutes/Day (M-F): 60-90 Minutes/Day (Sat/[place]): prn Safety Risks/Education Patient Education: Gait Training, Transfer Techniques, Correct Positioning, Safety Issues Teaching Recipient: Patient Teaching Methods: Demonstration, Discussion Response to Teaching: Reinforcement Needed Time/GCodes Time In: 1400 Time Out: 1430 Total Billed Treatment Time: 30 Total Billed Treatment 1 visit GT 20 min EX 10 min CORY STEIN PT May 17, 2016 14:29
--- NOTE | 2016-05-17 15:24 | Cardiology Progress Note ---
Subjective Subjective/Events-last exam Patient was seen and evaluated, has been feeling better, reporting improvement in his symptoms. Review of Systems General: No Chills, No Night Sweats, No Fatigue, No Malaise, No Appetite, No Other HEENT: No Head Aches, No Visual Changes, No Eye Pain, No Ear Pain, No Dysphasia , No Sinus Congestion, No Post Nasal Drip, No Sore Throat, No Other Pulmonary: No Dyspnea, No Cough, No Pleuritic Chest Pain, No Other Cardiovascular: No: Chest Pain, Edema, Lt Headedness, Orthopnea, Other, Palpitations, Paroxysmal Noc. Dyspnea Objective-Cardiology Exam Last Set of Vital Signs Vital Signs 05/13/16 05/17/16 08:46 05:19 Temp 97.1 Pulse 67 Resp 18 B/P (MAP) 142/67 Pulse Ox 96 O2 Delivery Room Air O2 Flow Rate 4.00 Capillary Refill : I&O Intake and Output 05/17/16 00:00 Intake Total 1710 ml Balance 1710 ml Intake Oral 1710 ml # Voids 7 General: Alert, Oriented X3, Cooperative, No Acute Distress HEENT: Atraumatic, PERRLA, EOMI, Mucous Memb Moist/[place], Other (possible periodontal inflammation/infection) Neck: Supple, No JVD Lungs: Clear to Auscultation Heart: Regular Rate Abdomen: Normal Bowel Sounds, Soft, No Tenderness Extremities: No Edema Neuro: Other (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) A/P-Cardiology Admission Diagnosis CVA HTN HLP CAD Assessment/Plan CVA-patient having some dysphagia, expressive aphasia. Patient has been in the acute rehabilitation unit receiving physical therapy, had worsening of his symptoms. Repeat MRI of brain revealed new area of infarct. Has been maintained on Plavix and aspirin. Unknown etiology. GIANCARLO done 05/13/16 revealed no intracardiac thrombus, no evidence of intracardiac shunt on bubble contrast study, LVEF approx 60%, trivial MR and TR, technically difficult study. Telemetry showed SR with BBB. S/P LINQ implantation, monitor for underlying A fib as a source of stroke. Coronary artery disease-patient reports history of [place] in the remote past. 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 I will try to obtain records. States he has not seen his welding equipment repairer supervisor in a long time. Hypertension-controlled. Continue to monitor blood pressure/heart rate Hyperlipidemia-maintained on statin. Diabetes mellitus-managed by primary care physician Left jaw and eye pain- jaw pain reproducible with palpation. Evaluated by ENT. Placed on antibiotic for possible dental infection. Continue to monitor. Clinical Quality Measures DVT/VTE Risk/Contraindication: Risk Factor Score Per Nursin RFS Level Per Nursing on Admit: 4+=Very High GIOVANNY CARDOSO MD May 17, 2016 15:24
[2016-05-17 18:15] VITALS: BP 122/68
--- NOTE | 2016-05-17 19:48 | Progress Note-Standard ---
Standard Progress Note Progress Notes/Assess & Plan Progress/Assessment & Plan ENT-Mari Patient seen and evaluated CT of sinuses clear c/o pain on lower left face NOthing on ENT exam to explain pain IMP Left Facial Pain ] REc: 1. would continue the pcn vk and get a dental eval when possible 2. If dental eval is negative then pain must be either neurologic and related to his stroke or potenitally trigeminal neuralgia neuroloigc evaluation would be rec. at that point Final Diagnosis Left FAcial Pain RUSLAN TERRELL MD May 17, 2016 7:48 pm
[2016-05-17] MEDS: FINASTERIDE (PROSCAR) 5 MG TAB PO SCH (19:53)
[2016-05-17] MEDS: doxAzosin 4 MG (CARDURA) TAB PO SCH (19:53)
[2016-05-17] MEDS: DONEPEZIL 10 MG (ARICEPT) TAB PO SCH (19:53)
[2016-05-17] MEDS: SIMvastatin 20 MG (ZOCOR) TAB PO SCH (19:53)
[2016-05-18] MEDS: PENICILLIN V K 250 MG TAB PO SCH ×5 (01:02→23:54)
[2016-05-18 05:20] VITALS: BP 119/64
[2016-05-18] MEDS: OMEGA 3 (FISH OIL) 1000 MG CAP PO SCH ×2 (06:02→17:33)
[2016-05-18] MEDS: LIDOCAINE 2% VISCOUS 15 ML UDC PO SCH ×3 (06:02→17:31)
[2016-05-18] MEDS: glyBURIDE 5 MG (MICRONASE) TAB PO SCH ×2 (06:02→17:31)
[2016-05-18] MEDS: lisINopril 20 MG (ZESTRIL) TAB PO SCH (07:49)
[2016-05-18] MEDS: CYANOCOBALAMIN 500 MCG TAB (VITAMIN B-12) PO SCH (07:49)
[2016-05-18] MEDS: PHENYTOIN 100 MG (DILANTIN) CAP PO SCH ×2 (07:50→20:19)
[2016-05-18] MEDS: CLOPIDOGREL 75 MG (PLAVIX) TABLET PO SCH (07:50)
[2016-05-18] MEDS: ASPIRIN 81 MG CHEW (CHILDREN'S ASA) PO SCH (07:50)
--- NOTE | 2016-05-18 08:28 | PM & R (SOAP) Progress Note ---
Subjective Subjective/Events-last exam Patient was seen in his room this AM Up in chair eating breakfast without complaint No c/o oral or dental pain CT Sinuses appreciated Patient min assist for transfers Objective Exam Last Set of Vital Signs Vital Signs Date Time Temp Pulse Resp B/P (MAP) Pulse Ox O2 Delivery O2 Flow Rate FiO2 05/18/16 05:20 97.9 75 18 119/64 96 Room Air 05/13/16 08:46 4.00 Capillary Refill : I&O Intake and Output 05/18/16 00:00 Intake Total 950 ml Balance 950 ml Intake Oral 950 ml # Voids 7 # Bowel Movements 1 General: Alert, Oriented X3, Cooperative, No Acute Distress HEENT: Atraumatic, PERRLA, EOMI, Mucous Memb Moist/[place], Other (possible periodontal inflammation/infection) Neck: Supple, No JVD Lungs: Clear to Auscultation Heart: Regular Rate Abdomen: Normal Bowel Sounds, Soft, No Tenderness Extremities: No Edema Neuro: Other (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) Results Lab Laboratory Tests 05/15/16 11:46: Glucometer 235H 05/15/16 16:38: Glucometer 150H 05/15/16 20:35: Glucometer 248H 05/16/16 05:11: Glucometer 149H 05/16/16 10:55: Glucometer 217H 05/16/16 15:34: Glucometer 158H 05/16/16 20:37: Glucometer 223H 05/17/16 05:48: Glucometer 156H 05/17/16 10:57: Glucometer 189H 05/17/16 16:38: Glucometer 224H 05/18/16 05:11: Glucometer 176H Assessment/Plan Assessment 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 with a set back with increased RT HP and Aphasia DM controlled HTN controlled Left facial/oral pain-possible dental pain/periodontal pain/sinus pain-improved with po antibiotic Plan Continue PT/OT/ST -as tolerated-Has missed some therapy time the past 2 days due to recurrent stroke Monitor Blood pressure and Accucheks and adjust meds as needed Current labs and therapy notes reviewed F/U re Cardiology consult and orders-GIANCARLO done appreciate results The patient is currently on ASA and Plavix Discussed case/GIANCARLO with patients daughter last week F/U with ENT re any further recs-done CT Sinuses completed ENT to review Appreciate Cardiology note-Reveal device placed Team Conference later today See report for full functional update and POC and RACHAEL PHILLIPS MD May 18, 2016 08:28
--- NOTE | 2016-05-18 08:46 | Physical Therapy Daily Note ---
PT Daily Note-Current Subjective Patient in recliner pre tx, agrees to PT, states he does not have any pain. Patient needs to get dressed. Appearance Patient in recliner post tx with nurse call, phone, tray, chair alarm. Mental Status Patient Orientation: Unable to Assess Transfers Functional [place] Measure 0=Not Assessed/NA 4=Minimal Assistance 1=Total Assistance 5=Supervision or Setup 2=Maximal Assistance 6=Modified [place] 3=Moderate Assistance 7=Complete IndependenceIRFPAI Quality Coding Scale 6 Independent with activity with or without an assistive device 5 Patient requires set up or clean up by helper. Patient completes activity by themselves 4 Supervision or touching assist (CGA). [place] provide cues , steadying assist 3 The helper provides less than half the effort to complete the activity 2 The helper provides more than half the effort to complete the activity 1 Dependent. The helper does all the effort to complete an activity 7 Patient refused to complete or attempt activity 9 The patient did not perform the activity before the current illness or injury 88 Not attempted due to Medical conditions or safety concerns Transfers (B, C, W/C) (FIM): 4 Scootin Rollin Supine to/from Sit: 5 Sit to/from Stand: 4 bed mobility SBA, sit to stand CGA Gait Training Gait (FIM): 5 Distance: 400', 150' Gait Level of Assist: 5 Gait Persons Needed: 1 Gait Assistive Device: FWW patient occasionally will get his right walker wheel caught on obstacles Stair Training Stair Training: Handrails/: 2 handrails Stairs (FIM): 4 #of Steps: 12 Level of Assist: 4 CGA, needs cues to get his right hand on the railing correctly Exercises NuStep Minutes: 15 NuStep Workload: 5 Treatments ambulation, bed mobility and transfers, stair training, functional strengthening Assessment Current Status: Fair Progress improving endurance, has some right neglect PT Short Term Goals Short Term Goals Time Frame: May 11, 2016 Transfers (B,C,W/C) (FIM): 5 Gait (FIM): 5 Distance (FIM): 3=150 ft Stairs (FIM): 4 PT Chcf Goals Hat Finisher Goals PT Chcf Goals Time Frame: May 25, 2016 Transfers (B,C,W/C) (FIM): 7 Sit to Lying (QC): 6 Lying-Sitting on Side/Bed(QC): 6 Sit to Stand (QC): 6 Rollin Roll Left to Right (QC): 6 Chair/Diy-sl-Rahla Xfer(QC): 6 Car Transfer (QC): 6 Does the Patient Walk: Yes Gait (FIM): 6 Gait distance (FIM): 3=150 ft Walk 10 feet (QC): 6 Walk 10ft-Uneven Surface(QC): 6 Walk 50ft with 2 Turns (QC): 6 Walk 150 ft (QC): 6 Gait Assistive Device: FWW Does the Pt use WC or Scooter?: No Stairs (FIM): 6 # of Steps: 12 1 Step (curb) (QC): 6 4 Steps (QC): 6 12 Steps (QC): 6 Picking up an Object (QC): 6 PT Plan Problem List Problem List: Activity Tolerance, Functional Strength, Safety, Balance, Gait, Transfer, Bed Mobility Treatment/Plan Treatment Plan: Continue Plan of Care Treatment Plan: Bed Mobility, Education, Functional Activity Gamaliel, Functional Strength, Group Therapy, Gait, Safety, Therapeutic Exercise, Transfers Treatment Duration: May 25, 2016 Visits Per Week: 10-15 Minutes/Day (M-F): 60-90 Minutes/Day (Sat/[place]ierro): prn Safety Risks/Education Patient Education: Gait Training, Transfer Techniques, Steps, Safety Issues Teaching Recipient: Patient Teaching Methods: Demonstration, Discussion Response to Teaching: Reinforcement Needed Time/GCodes Time In: 800 Time Out: 845 Total Billed Treatment Time: 45 Total Billed Treatment 1 visit EX 15 min FA 15 min GT 15 min CORY STEIN PT May 18, 2016 08:46
--- NOTE | 2016-05-18 11:13 | Speech Therapy Daily Note ---
Speech Daily Progress Note Subjective The patient was seated upright in recliner upon entrance. The patient made eye contact and smiled at the clinician upon entrance. The patient was agreeable to speech and language therapy via head nod to clinician. Objective - Confrontational Naming: The patient demonstrated 35% accuracy (+7/20) with confrontational naming on this date during the first attempt. The patient demonstrated mildly increased accuracy with confrontational naming on the second attempt to 45% accuracy (+9/20). Phonemic cues were mildly helpful in increasing accuracy. - Orientation: The patient required maximum cueing for orientation information on this date. The patient was able to repeat the month, date, day, and year following clinician direct modeling. Assessment Assessment Current Status: Poor Progress Treatment Plan Continue Plan of Care Communication Comprehension: 3 Expression: 2 Social Cognition Social Interaction: 3 Problem Solvin Memory: 2 Speech Short Term Goals Short Term Goals Short Term Goals 1. The patient will state names of five common objects and five common pictures with 80% accuracy and moderate clinician cueing. 2. The patient will repeat single words and short phrases with 70% accuracy with moderate clinician verbal cueing. 3. The patient will demonstrated 90% accuracy with simple yes/no questions. 4. The patient will display 90% accuracy with simple, one-step commands. Time Frame-STG: Three Weeks Speech Jail Goals Shop Tailor Apprentice Goals 1. The patient will demonstrate improved receptive and expressive communication skills for increased safety and function with ADL's. Time Frame: Two Months Comprehension: 3 Expression: 3 Social Interaction: 4 Speech-Plan Treatment Plan Speech Therapy Treatment Plan: Continue Plan of Care Continue skilled speech pathology to target expressive functional communication. Treatment Duration: June 29, 2016 # of days/week Five Visits Per Week: Five Minutes/Day (M-F): 30 to 45 Rehab Potential: Guarded Safety Risks/Education Teaching Recipient: Patient Teaching Methods: Demonstration, Discussion Response to Teaching: Return Demonstration, Reinforcement Needed Education Topics Provided: Orientation Strategies, Expressive Language Strategies Time Speech Therapy Time In: 08:45 Speech Therapy Time Out: 09:15 Total Billed Time: 30 Billed Treatment Time FRANNIE Estrada ELIZABETH May 18, 2016 11:13
--- NOTE | 2016-05-18 11:34 | Cardiology Progress Note ---
Subjective Subjective/Events-last exam Patient is in chair, eating lunch. No new complaints. No evidence of atrial fibrillation on Linq device. Review of Systems General: No Night Sweats, No Fatigue, No Malaise HEENT: No Visual Changes, No Dysphasia Pulmonary: No Dyspnea, No Cough Cardiovascular: No: Chest Pain, Palpitations Gastrointestinal: No: Abdominal Pain, Nausea, Vomiting Genitourinary: No Dysuria, No Frequency Musculoskeletal: No: back pain, neck pain Neurological: Change in speech, Weakness, No: Confusion, Numbness Objective-Cardiology Exam Last Set of Vital Signs Vital Signs 05/13/16 05/18/16 08:46 05:20 Temp 97.9 Pulse 75 Resp 18 B/P (MAP) 119/64 Pulse Ox 96 O2 Delivery Room Air O2 Flow Rate 4.00 Capillary Refill : I&O Intake and Output 05/18/16 00:00 Intake Total 950 ml Balance 950 ml Intake Oral 950 ml # Voids 7 # Bowel Movements 1 General: Alert, Oriented X3, Cooperative, No Acute Distress HEENT: Atraumatic, PERRLA, EOMI, Mucous Memb Moist/[place], Other (possible periodontal inflammation/infection) Neck: Supple, No JVD Lungs: Clear to Auscultation Heart: Regular Rate Abdomen: Normal Bowel Sounds, Soft, No Tenderness Extremities: No Edema Neuro: Other (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) A/P-Cardiology Admission Diagnosis CVA HTN HLP CAD Assessment/Plan CVA-patient having some dysphagia, expressive aphasia. Patient has been in the acute rehabilitation unit receiving physical therapy, had worsening of his symptoms. Repeat MRI of brain revealed new area of infarct. Has been maintained on Plavix and aspirin. Unknown etiology. GIANCARLO done 05/13/16 revealed no intracardiac thrombus, no evidence of intracardiac shunt on bubble contrast study, LVEF approx 60%, trivial MR and TR, technically difficult study. Telemetry showed SR with BBB. S/P LINQ implantation, monitor for underlying A fib as a source of stroke. Coronary artery disease-patient reports history of [place] in the remote past. 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 I will try to obtain records. Hypertension-controlled. Continue to monitor blood pressure/heart rate Hyperlipidemia-maintained on statin. Diabetes mellitus-managed by primary care physician Left jaw and eye pain- Evaluated by ENT. Placed on antibiotic for possible dental infection vs trigeminal neuralgia. Continue to monitor. Clinical Quality Measures DVT/VTE Risk/Contraindication: Risk Factor Score Per Nursin RFS Level Per Nursing on Admit: 4+=Very High EMMA DONOVAN May 18, 2016 11:34
--- NOTE | 2016-05-18 11:58 | Progress Note-Hospitalist ---
Progress Note Progress Notes/Assess & Plan Date Seen 05/18/16 Di[place]is/Assessment & Plan training facilitator: Will call Dr. Vargas. Pt is doing well today. Patient Interview: Pt was told an eye doctor will come look at pt left eye today. Physical exam was stable. Pt states he had BM. Scribed by Herrera Coyne under the direct supervision of Dr. Mitchell. AF, vital signs stable, pleasant, up in chair Mostly aphasic no change Regular rate and rhythm, clear to auscultation bilaterally No edema Assessment: 1.previous CVA as characterized by speech abnormality and swallowing difficulties with another acute lacunar infarct prompting consultation with cardiology but GIANCARLO negative so placed loop recorder implantation 2.questionable recent increase in symptomatology but now more aphasic since yesterday 3.past history of myocardial infarction. 4.hypertension. 5.diabetes mellitus type II [id number]. 6.peripheral neuropathy 7. Left eye pain Plan: Pain management Continue rehab recovery Appreciate cardiology input Eye doctor to see today MARYAM MITCHELL DO May 18, 2016 11:58
--- NOTE | 2016-05-18 14:51 | Occupational Ther Daily Note ---
OT Current Status-Daily Note Subjective Pt seen in room, up in recliner, agreeable to OT. Pt was able to communicate that his shirt and pants were clean but he needed new underwear (some verbal and some prompting) Appearance Alert, cooperative Mental Status/Objective Functional [place] Measure 0=Not Assessed/NA 4=Minimal Assistance 1=Total Assistance 5=Supervision or Setup 2=Maximal Assistance 6=Modified [place] 3=Moderate Assistance 7=Complete [place] ADL-Treatment Pt left up in recliner, all needs met, chair alarm on. Functional [place] Measure 0=Not Assessed/NA 4=Minimal Assistance 1=Total Assistance 5=Supervision or Setup 2=Maximal Assistance 6=Modified [place] 3=Moderate Assistance 7=Complete IndependenceIRFPAI Quality Coding Scale 6 Independent with activity with or without an assistive device 5 Patient requires set up or clean up by helper. Patient completes activity by themselves 4 Supervision or touching assist (CGA). [place] provide cues , steadying assist 3 The helper provides less than half the effort to complete the activity 2 The helper provides more than half the effort to complete the activity 1 Dependent. The helper does all the effort to complete an activity 7 Patient refused to complete or attempt activity 9 The patient did not perform the activity before the current illness or injury 88 Not attempted due to Medical conditions or safety concerns Grooming (FIM): 5 (Supervision, sitting at sink to brush teeth, comb hair, shave. Pt was able to problem solve that he held razor in his R hand hand, not a toothbrush. Some difficulty problem solving putting shaving cream on.) Bathing (FIM): 4 (CGA when standing to wash bottom. Pt washed and dried all parts, with some verbal cues. Shower bench, grab bars, hand held shower. Needed a little help to get hair wet to wash it. ) Upper Body (FIM): 5 (Doffed and donned t shirt with setup) Lower Body Dressing (FIM): 5 (One time LOB toward R side when standing to pull pants up. Able to doff slipper socks and don shoes. ) Transfers (B, C, W/C) (FIM): 4 (Skilled cues each time for hand placement, FWW) Shower Transfer(FIM): 4 (CGA, FWW, grab bars, shower bench) Education OT Patient Education: Modified ADL techniques, Progress toward Goal/Update tx plan, Purpose of tx/functional activities, Safety issues, Transfer techniques Teaching Recipient: Patient Teaching Methods: Demonstration, Discussion Response to Teaching: Reinforcement Needed OT Short Term Goals Short Term Goals Time Frame: May 11, 2016 Eating(FIM): 5 Grooming(FIM): 5 Bathing(FIM): 4 Upper Body Dressing(FIM): 5 Lower Body Dressing(FIM): 5 Toileting(FIM): 5 Transfers (B,C,W/C) (FIM): 5 Toilet/Commode Transfer(FIM): 5 Shower Transfer(FIM): 4 Additional Short Term Goals: 1-Demonstrate ADL Tasks, 2-Verbalize Understanding , 3-ImproveStrength/Gamaliel 1=Demonstrate adherence to instructed precautions during ADL tasks. 2=Patient will verbalize/demonstrate understanding of assistive devices/ modifications for ADL. 3=Patient will improve strength/tolerance for activity to enable patient to perform ADL's. OT Casino Accountant Goals Casino Accountant Goals Time Frame: May 18, 2016 Eating (FIM): 6 Eating (QC): 6 Groomin Oral Hygiene (QC): 6 Bathing(FIM): 5 Shower/Bathe Self (QC): 5 Upper Body Dressing(FIM): 6 Upper Body Dressing (QC): 6 Lower Body Dressing(FIM): 6 Lower Body Dressing (QC): 6 On/Off Footwear (QC): 6 Toileting(FIM): 6 Toileting Hygiene (QC): 6 Transfers (B,C,W/C) (FIM): 6 Toilet/Commode Transfer(FIM): 6 Toilet/Commode Transfer (QC): 6 Shower Transfer(FIM): 5 Comprehension(FIM): 3 Expression (FIM): 3 Social Interaction(FIM): 4 Additional Goals: 1-Demonstrate ADL Tasks, 2-Verbalize Understanding, 3- ImproveStrength/Gamaliel 1=Demonstrate adherence to instructed precautions during ADL tasks. 2=Patient will verbalize/demonstrate understanding of assistive devices/ modifications for ADL. 3=Patient will improve strength/tolerance for activity to enable patient to perform ADL's. OT Education/Plan Problem List/Assessment Pt. was noted to run into items on the right side. Note right sided neglect. Discharge Recommendations Plan/Recommendations: Continue POC Treatment Plan/Plan of Care Patient would benefit from OT for education, treatment and training to promote independence in ADL's, mobility, safety and/or upper extremity function for ADL' s. Plan of Care: ADL Retraining, Functional Mobility, UE Funct Exercise/Act Treatment Duration: May 18, 2016 Visits Per Week: 10-12 Minutes/Day (M-F): 60-90 Minutes/Day (Sat/Fierro): PRN Agreement: Yes Rehab Potential: Guarded Time/GCodes Start Time: 09:45 Stop Time: 10:45 Total Time Billed (hr/min): 60 Billed Treatment Time visit, 60 minutes ADL DARELL GALVEZ OT May 18, 2016 14:51
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
--- NOTE | 2016-05-18 16:41 | Cardiology Progress Note ---
Subjective Subjective/Events-last exam Patient is in bed, feeling better, still having jaw pain Objective-Cardiology Exam Last Set of Vital Signs Vital Signs 05/13/16 05/18/16 08:46 05:20 Temp 97.9 Pulse 75 Resp 18 B/P (MAP) 119/64 Pulse Ox 96 O2 Delivery Room Air O2 Flow Rate 4.00 Capillary Refill : I&O Intake and Output 05/18/16 00:00 Intake Total 950 ml Balance 950 ml Intake Oral 950 ml # Voids 7 # Bowel Movements 1 General: Alert, Oriented X3, Cooperative, No Acute Distress HEENT: Atraumatic, PERRLA, EOMI, Mucous Memb Moist/[place], Other (possible periodontal inflammation/infection) Neck: Supple, No JVD Lungs: Clear to Auscultation Heart: Regular Rate Abdomen: Normal Bowel Sounds, Soft, No Tenderness Extremities: No Edema Neuro: Other (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) A/P-Cardiology Admission Diagnosis CVA HTN HLP CAD Assessment/Plan CVA-patient having some dysphagia, expressive aphasia. Patient has been in the acute rehabilitation unit receiving physical therapy, had worsening of his symptoms. Repeat MRI of brain revealed new area of infarct. Has been maintained on Plavix and aspirin. Unknown etiology. GIANCARLO done 05/13/16 revealed no intracardiac thrombus, no evidence of intracardiac shunt on bubble contrast study, LVEF approx 60%, trivial MR and TR, technically difficult study. Telemetry showed SR with BBB. S/P LINQ implantation, monitor for underlying A fib as a source of stroke. Coronary artery disease-patient reports history of ID in the remote past. 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 I will try to obtain records. Hypertension-controlled. Continue to monitor blood pressure/heart rate Hyperlipidemia-maintained on statin. Diabetes mellitus-managed by primary care physician Left jaw and eye pain- Evaluated by ENT. Placed on antibiotic for possible dental infection vs trigeminal neuralgia. Continue to monitor. Clinical Quality Measures DVT/VTE Risk/Contraindication: Risk Factor Score Per Nursin RFS Level Per Nursing on Admit: 4+=Very High GIOVANNY CARDOSO MD May 18, 2016 4:41 pm
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
[2016-05-18 18:25] VITALS: BP 135/77
[2016-05-18] MEDS: SIMvastatin 20 MG (ZOCOR) TAB PO SCH (20:19)
[2016-05-18] MEDS: doxAzosin 4 MG (CARDURA) TAB PO SCH (20:19)
[2016-05-18] MEDS: FINASTERIDE (PROSCAR) 5 MG TAB PO SCH (20:19)
[2016-05-18] MEDS: DONEPEZIL 10 MG (ARICEPT) TAB PO SCH (20:19)
[2016-05-19 05:04] VITALS: BP 113/61
[2016-05-19] MEDS: OMEGA 3 (FISH OIL) 1000 MG CAP PO SCH ×2 (06:04→16:56)
[2016-05-19] MEDS: LIDOCAINE 2% VISCOUS 15 ML UDC PO SCH ×3 (06:04→16:59)
[2016-05-19] MEDS: PENICILLIN V K 250 MG TAB PO SCH ×3 (06:04→17:00)
[2016-05-19] MEDS: glyBURIDE 5 MG (MICRONASE) TAB PO SCH ×2 (06:04→16:56)
[2016-05-19] MEDS: CYANOCOBALAMIN 500 MCG TAB (VITAMIN B-12) PO SCH (08:26)
[2016-05-19] MEDS: CLOPIDOGREL 75 MG (PLAVIX) TABLET PO SCH (08:26)
[2016-05-19] MEDS: lisINopril 20 MG (ZESTRIL) TAB PO SCH (08:26)
[2016-05-19] MEDS: ASPIRIN 81 MG CHEW (CHILDREN'S ASA) PO SCH (08:26)
[2016-05-19] MEDS: PHENYTOIN 100 MG (DILANTIN) CAP PO SCH ×2 (08:26→19:59)
--- NOTE | 2016-05-19 08:36 | PM & R (SOAP) Progress Note ---
Subjective Subjective/Events-last exam Patient was seen in his room this AM Dental/facial pain improved with antibiotic and Tramodol prn Current meds reviewed Appreciate Optometrists consult and recs Patient min assist for transfers Objective Exam Last Set of Vital Signs Vital Signs Date Time Temp Pulse Resp B/P (MAP) Pulse Ox O2 Delivery O2 Flow Rate FiO2 05/19/16 05:04 98.6 70 18 113/61 95 Room Air 05/13/16 08:46 4.00 Capillary Refill : I&O Intake and Output 05/18/16 23:59 Intake Total 2200 ml Balance 2200 ml Intake Oral 2200 ml # Voids 8 General: Alert, Oriented X3, Cooperative, No Acute Distress HEENT: Atraumatic, PERRLA, EOMI, Mucous Memb Moist/[place], Other (possible periodontal inflammation/infection) Neck: Supple, No JVD Lungs: Clear to Auscultation Heart: Regular Rate Abdomen: Normal Bowel Sounds, Soft, No Tenderness Extremities: No Edema Neuro: Other (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) Results Lab Laboratory Tests 05/16/16 10:55: Glucometer 217H 05/16/16 15:34: Glucometer 158H 05/16/16 20:37: Glucometer 223H 05/17/16 05:48: Glucometer 156H 05/17/16 10:57: Glucometer 189H 05/17/16 16:38: Glucometer 224H 05/18/16 05:11: Glucometer 176H 05/18/16 10:53: Glucometer 164H 05/18/16 15:53: Glucometer 160H 05/19/16 06:02: Glucometer 175H Assessment/Plan Assessment 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 gradually improving Recurrent Left MCA distribution CVA with a set back with increased RT HP and Aphasia DM controlled HTN controlled Left facial/oral pain-possible dental pain/periodontal pain/sinus pain-improved with po antibiotic Plan Continue PT/OT/ST -as tolerated-Has missed some therapy time during stay due to recurrent stroke Monitor Blood pressure and Accucheks and adjust meds as needed Current labs and therapy notes reviewed F/U re Cardiology consult and orders-GIANCARLO done appreciate results The patient is currently on ASA and Plavix Discussed case/GIANCARLO with patients daughter last week-negative F/U with ENT re any further recs-done CT Sinuses completed ENT to review-done Women'S Studies Lecturer has seen Appreciate Cardiology note-Reveal device placed Team Conference held yesterday See report for full functional update and POC and ELOS Discharge set tentatively for Monday05/23/16 RACHAEL THEODORE MD May 19, 2016 08:36
--- NOTE | 2016-05-19 08:47 | Physical Therapy Daily Note ---
PT Daily Note-Current Subjective Patient in recliner pre tx, agrees to PT, no complaints of pain. Appearance Patient in recliner post tx with nurse call, phone, tray, all needs met. Mental Status Patient Orientation: Unable to Assess Transfers Functional [place] Measure 0=Not Assessed/NA 4=Minimal Assistance 1=Total Assistance 5=Supervision or Setup 2=Maximal Assistance 6=Modified [place] 3=Moderate Assistance 7=Complete IndependenceIRFPAI Quality Coding Scale 6 Independent with activity with or without an assistive device 5 Patient requires set up or clean up by helper. Patient completes activity by themselves 4 Supervision or touching assist (CGA). [place] provide cues , steadying assist 3 The helper provides less than half the effort to complete the activity 2 The helper provides more than half the effort to complete the activity 1 Dependent. The helper does all the effort to complete an activity 7 Patient refused to complete or attempt activity 9 The patient did not perform the activity before the current illness or injury 88 Not attempted due to Medical conditions or safety concerns Transfers (B, C, W/C) (FIM): 5 Sit to/from Stand: 5 cues for safety and hand placement, patient will often pull up from the walker Gait Training Gait (FIM): 5 Distance: 400', 150' Gait Level of Assist: 5 Gait Persons Needed: 1 Gait Assistive Device: FWW slow, needs cues for direction, occasional cues to put his right hand on the walker Exercises Seated Therapy Exercises: Long arc quads, Hip flexion Seated Reps: 20 Standing: Heel/toe raises, Step-ups Standing Reps: 10 NuStep Minutes: 15 NuStep Workload: 5 Treatments transfers, ambulation, functional strengthening Assessment Current Status: Fair Progress improving endurance PT Short Term Goals Short Term Goals Time Frame: May 11, 2016 Transfers (B,C,W/C) (FIM): 5 Gait (FIM): 5 Distance (FIM): 3=150 ft Stairs (FIM): 4 PT Director Of Science Goals Assisted Goals PT Assisted Goals Time Frame: May 25, 2016 Transfers (B,C,W/C) (FIM): 7 Sit to Lying (QC): 6 Lying-Sitting on Side/Bed(QC): 6 Sit to Stand (QC): 6 Rollin Roll Left to Right (QC): 6 Chair/Wtp-pm-Kldhd Xfer(QC): 6 Car Transfer (QC): 6 Does the Patient Walk: Yes Gait (FIM): 6 Gait distance (FIM): 3=150 ft Walk 10 feet (QC): 6 Walk 10ft-Uneven Surface(QC): 6 Walk 50ft with 2 Turns (QC): 6 Walk 150 ft (QC): 6 Gait Assistive Device: FWW Does the Pt use WC or Scooter?: No Stairs (FIM): 6 # of Steps: 12 1 Step (curb) (QC): 6 4 Steps (QC): 6 12 Steps (QC): 6 Picking up an Object (QC): 6 PT Plan Problem List Problem List: Activity Tolerance, Functional Strength, Safety, Balance, Gait, Transfer Treatment/Plan Treatment Plan: Continue Plan of Care Treatment Plan: Bed Mobility, Education, Functional Activity Gamaliel, Functional Strength, Group Therapy, Gait, Safety, Therapeutic Exercise, Transfers Treatment Duration: May 25, 2016 Visits Per Week: 10-15 Minutes/Day (M-F): 60-90 Minutes/Day (Sat/Fierro): prn Safety Risks/Education Patient Education: Gait Training, Transfer Techniques, Correct Positioning, Safety Issues Teaching Recipient: Patient Teaching Methods: Demonstration, Discussion Response to Teaching: Reinforcement Needed Time/GCodes Time In: 800 Time Out: 845 Total Billed Treatment Time: 45 Total Billed Treatment 1 visit EX 30 min GT 15 min CORY STEIN PT May 19, 2016 08:47
[2016-05-19] MEDS ORDERED: carBAMazepine 200 MG (TEGretol) TAB PO SCH (10:00)
[2016-05-19] MEDS ORDERED: HYDROcodone/APAP 5 MG/325 MG (LORTAB) TAB PO PRN (10:30)
[2016-05-19] MEDS ORDERED: ACETAMINOPHEN 500 MG TAB (TYLENOL) PO PRN ×2 (10:30)
--- NOTE | 2016-05-19 10:41 | Progress Note-Hospitalist ---
Progress Note Progress Notes/Assess & Plan Date Seen 05/19/16 Diagonsis/Assessment & Plan manager hospice: Dr. Vargas saw pt and states the left eye issue is trigeminal neuralgia or dental issue. Patient Interview: Pt states he is doing okay. Pt was told he will be started on a different medicine to treat pain. Physical exam was stable. Pt states he has no needs currently. Scribed by Herrera Coyne under the direct supervision of Dr. Mitchell. AF, vital signs stable, pleasant, up in chair in bathroom brushing teeth Mostly aphasic no change Regular rate and rhythm, clear to auscultation bilaterally No edema Assessment: 1.previous CVA as characterized by speech abnormality and swallowing difficulties with another acute lacunar infarct prompting consultation with cardiology but GIANCARLO negative so placed loop recorder implantation 2.questionable recent increase in symptomatology but now more aphasic since yesterday 3.past history of myocardial infarction. 4.hypertension. 5.diabetes mellitus type II adv-[id number]. 6.peripheral neuropathy 7. Left eye pain likely due to trigeminal neuralgia Plan: Pain management w/APAP and Hydrocodone and DC Ultram to be able to start Tegretol Continue rehab recovery Appreciate cardiology input MARYAM MITCHELL DO May 19, 2016 10:41
--- NOTE | 2016-05-19 10:54 | Occupational Ther Daily Note ---
OT Current Status-Daily Note Subjective Pt seen in room, up in chair, agreeable to OT. Indicated he wasn't in any pain this morning but he just didn't look like he felt good. Mental Status/Objective Functional [place] Measure 0=Not Assessed/NA 4=Minimal Assistance 1=Total Assistance 5=Supervision or Setup 2=Maximal Assistance 6=Modified [place] 3=Moderate Assistance 7=Complete [place] ADL-Treatment Functional [place] Measure 0=Not Assessed/NA 4=Minimal Assistance 1=Total Assistance 5=Supervision or Setup 2=Maximal Assistance 6=Modified [place] 3=Moderate Assistance 7=Complete IndependenceIRFPAI Quality Coding Scale 6 Independent with activity with or without an assistive device 5 Patient requires set up or clean up by helper. Patient completes activity by themselves 4 Supervision or touching assist (CGA). [place] provide cues , steadying assist 3 The helper provides less than half the effort to complete the activity 2 The helper provides more than half the effort to complete the activity 1 Dependent. The helper does all the effort to complete an activity 7 Patient refused to complete or attempt activity 9 The patient did not perform the activity before the current illness or injury 88 Not attempted due to Medical conditions or safety concerns Grooming (FIM): 5 (Supervision, setup for shaving, brushing teeth. Today he was not able to problem-solve how to get shaving cream from can to his face. He used both hands for shaving and is slow but accurate - no nicks. No assistance needed with brushing teeth.) Upper Body (FIM): 5 (Doffed and donned shirt with setup, supervision, while seated) Lower Body Dressing (FIM): 5 (Supervision, setup, SBA for balance. Pt wobbled 1 -2 times toward R side but self-corrected. Had more difficulty with sit to stand , with hand placement and LOB backwards. Able to get socks on without help) Toileting (FIM): 3 (Pt was able to manage clothing but asked for help for wiping bottom. ) Transfers (B, C, W/C) (FIM): 4 (Physical assist for hand placement each time he got up and down. He has LOB backwards a couple times when getting up if he didn't push up from arms of chair) Toilet/Commode Transfer (FIM): 5 (SBA when getting up off toilet. Sat down without using grab bar and tends to sit a little hard. ) Other Treatment Pt walked to gym with CGA, FWW and ran walker into either doorway when turning R or chair legs on the right. Tends to look ahead and not where walker is. In gym, worked with 1" blocks to recreate designs, with min assist. Was able to do both two dimensional and three dimensional designs, with a little incoordination. Also was able to manipulate graded clothespins with R hand, showing increased coordination. Pt walked back to room, CGA, FWW and left up in recliner, chair alarm on, all needs met. Education OT Patient Education: Purpose of tx/functional activities, Safety issues, Transfer techniques Teaching Recipient: Patient Response to Teaching: Reinforcement Needed OT Short Term Goals Short Term Goals Time Frame: May 11, 2016 Eating(FIM): 5 Grooming(FIM): 5 Bathing(FIM): 4 Upper Body Dressing(FIM): 5 Lower Body Dressing(FIM): 5 Toileting(FIM): 5 Transfers (B,C,W/C) (FIM): 5 Toilet/Commode Transfer(FIM): 5 Shower Transfer(FIM): 4 Additional Short Term Goals: 1-Demonstrate ADL Tasks, 2-Verbalize Understanding , 3-ImproveStrength/Gamaliel 1=Demonstrate adherence to instructed precautions during ADL tasks. 2=Patient will verbalize/demonstrate understanding of assistive devices/ modifications for ADL. 3=Patient will improve strength/tolerance for activity to enable patient to perform ADL's. OT Senior Living Goals Senior Living Goals Time Frame: May 18, 2016 Eating (FIM): 6 Eating (QC): 6 Groomin Oral Hygiene (QC): 6 Bathing(FIM): 5 Shower/Bathe Self (QC): 5 Upper Body Dressing(FIM): 6 Upper Body Dressing (QC): 6 Lower Body Dressing(FIM): 6 Lower Body Dressing (QC): 6 On/Off Footwear (QC): 6 Toileting(FIM): 6 Toileting Hygiene (QC): 6 Transfers (B,C,W/C) (FIM): 6 Toilet/Commode Transfer(FIM): 6 Toilet/Commode Transfer (QC): 6 Shower Transfer(FIM): 5 Comprehension(FIM): 3 Expression (FIM): 3 Social Interaction(FIM): 4 Additional Goals: 1-Demonstrate ADL Tasks, 2-Verbalize Understanding, 3- ImproveStrength/Gamaliel 1=Demonstrate adherence to instructed precautions during ADL tasks. 2=Patient will verbalize/demonstrate understanding of assistive devices/ modifications for ADL. 3=Patient will improve strength/tolerance for activity to enable patient to perform ADL's. OT Education/Plan Problem List/Assessment Pt. was noted to run into items on the right side. Note right sided neglect. Discharge Recommendations Plan/Recommendations: Continue POC Treatment Plan/Plan of Care Patient would benefit from OT for education, treatment and training to promote independence in ADL's, mobility, safety and/or upper extremity function for ADL' s. Plan of Care: ADL Retraining, Functional Mobility, UE Funct Exercise/Act Treatment Duration: May 18, 2016 Visits Per Week: 10-12 Minutes/Day (M-F): 60-90 Minutes/Day (Sat/Fierro): PRN Agreement: Yes Rehab Potential: Guarded Time/GCodes Start Time: 09:30 Stop Time: 10:45 Total Time Billed (hr/min): 75 Billed Treatment Time visit, 35 minutes ADL, 40 minutes neuromotor DARELL GALVEZ OT May 19, 2016 10:54
--- NOTE | 2016-05-19 11:40 | Speech Therapy Daily Note ---
Speech Daily Progress Note Subjective The patient was seated upright in recliner upon entrance. The patient made eye contact and smiled at the clinician upon entrance. The patient was agreeable to speech and language therapy via head nod to clinician. Objective - Confrontational Naming (Common ADL Items): The patient demonstrated 35% accuracy (+7/20) with confrontational naming on this date with maximum clinician verbal cueing. Phonemic cues were mildly helpful in increasing accuracy, however, phrase completion was not an effective strategy. The patient was unable to write or spell the name of the pictures provided. - Orientation: The patient required maximum cueing for orientation information on this date. The patient was able to repeat the month and year following clinician direct modeling. Assessment Assessment Current Status: Poor Progress Treatment Plan Continue Plan of Care Communication Comprehension: 4 Expression: 1 Social Cognition Social Interaction: 3 Problem Solvin Memory: 4 Speech Short Term Goals Short Term Goals Short Term Goals 1. The patient will state names of five common objects and five common pictures with 80% accuracy and moderate clinician cueing. 2. The patient will repeat single words and short phrases with 70% accuracy with moderate clinician verbal cueing. 3. The patient will demonstrated 90% accuracy with simple yes/no questions. 4. The patient will display 90% accuracy with simple, one-step commands. Time Frame-STG: Three Weeks Speech Migration Agent Goals Migration Agent Goals 1. The patient will demonstrate improved receptive and expressive communication skills for increased safety and function with ADL's. Time Frame: Two Months Comprehension: 3 Expression: 3 Social Interaction: 4 Speech-Plan Treatment Plan Speech Therapy Treatment Plan: Continue Plan of Care Continue skilled speech pathology intervention to target improved expressive communication. Treatment Duration: June 29, 2016 # of days/week Five. Visits Per Week: Five Minutes/Day (M-F): 30 to 45 Rehab Potential: Guarded Safety Risks/Education Teaching Recipient: Patient Teaching Methods: Demonstration, Discussion Response to Teaching: Return Demonstration, Reinforcement Needed Education Topics Provided: Expressive Speech Strategies Time Speech Therapy Time In: 08:45 Speech Therapy Time Out: 09:15 Total Billed Time: 30 Billed Treatment Time FRANNIE Estrada ELIZABETH May 19, 2016 11:40
[2016-05-19] MEDS: carBAMazepine 100 MG (TEGretol) CHEW PO SCH ×2 (12:01→19:59)
--- NOTE | 2016-05-19 13:21 | Cardiology Progress Note ---
Subjective Subjective/Events-last exam Patient sitting up in chair. No new complaints. Denies any CP or palpitation Review of Systems General: No Night Sweats, No Fatigue, No Malaise HEENT: No Visual Changes Pulmonary: No Dyspnea, No Cough Cardiovascular: No: Chest Pain, Palpitations Gastrointestinal: No: Abdominal Pain, Nausea, Vomiting Genitourinary: No Dysuria, No Frequency Musculoskeletal: No: back pain, neck pain Neurological: No: Change in speech, Confusion, Numbness, Weakness Objective-Cardiology Exam Last Set of Vital Signs Vital Signs 05/13/16 05/19/16 08:46 05:04 Temp 98.6 Pulse 70 Resp 18 B/P (MAP) 113/61 Pulse Ox 95 O2 Delivery Room Air O2 Flow Rate 4.00 Capillary Refill : I&O Intake and Output 05/19/16 00:00 Intake Total 2200 ml Balance 2200 ml Intake Oral 2200 ml # Voids 8 General: Alert, Oriented X3, Cooperative, No Acute Distress HEENT: Atraumatic, PERRLA, EOMI, Mucous Memb Moist/[place], Other (possible periodontal inflammation/infection) Neck: Supple, No JVD Lungs: Clear to Auscultation Heart: Regular Rate Abdomen: Normal Bowel Sounds, Soft, No Tenderness Extremities: No Edema Neuro: Other (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) A/P-Cardiology Admission Diagnosis CVA HTN HLP CAD Assessment/Plan CVA-patient having some dysphagia, expressive aphasia. Patient has been in the acute rehabilitation unit receiving physical therapy, had worsening of his symptoms. Repeat MRI of brain revealed new area of infarct. Has been maintained on Plavix and aspirin. Unknown etiology. GIANCARLO done 05/13/16 revealed no intracardiac thrombus, no evidence of intracardiac shunt on bubble contrast study, LVEF approx 60%, trivial MR and TR, technically difficult study. Telemetry showed SR with BBB. S/P LINQ implantation, monitor for underlying A fib as a source of stroke. Coronary artery disease-patient reports history of PR in the remote past. 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 I will try to obtain records. Hypertension-controlled. Continue to monitor blood pressure/heart rate Hyperlipidemia-maintained on statin. Diabetes mellitus-managed by primary care physician Left jaw and eye pain- Evaluated by Dr. Guerra and Dr. Brock. Placed on antibiotic for possible dental infection vs trigeminal neuralgia. Continue to monitor. Clinical Quality Measures DVT/VTE Risk/Contraindication: Risk Factor Score Per Nursin RFS Level Per Nursing on Admit: 4+=Very High EMMA DONOVAN May 19, 2016 13:21
--- NOTE | 2016-05-19 16:19 | Physical Therapy Daily Note ---
PT Daily Note-Current Subjective Nods to agree to therapy. Transfers Functional [place] Measure 0=Not Assessed/NA 4=Minimal Assistance 1=Total Assistance 5=Supervision or Setup 2=Maximal Assistance 6=Modified [place] 3=Moderate Assistance 7=Complete IndependenceIRFPAI Quality Coding Scale 6 Independent with activity with or without an assistive device 5 Patient requires set up or clean up by helper. Patient completes activity by themselves 4 Supervision or touching assist (CGA). [place] provide cues , steadying assist 3 The helper provides less than half the effort to complete the activity 2 The helper provides more than half the effort to complete the activity 1 Dependent. The helper does all the effort to complete an activity 7 Patient refused to complete or attempt activity 9 The patient did not perform the activity before the current illness or injury 88 Not attempted due to Medical conditions or safety concerns Treatments Treatment consisted of gait training throughout facility with multiple turns, elevator (with pt pushing elevator buttons and selecting correct button) needing skilled cues to problem solve and for safe gait pattern. Pt ambulated up/down a sloped resendiz with FWW wth close CGA. Pt ambulate >1000 ft total with 3 -4 sitting rest breaks. Up/down 12 steps with hand rail with close CGA and skilled cues for safety with pattern inconsistent between reciprocal and 1 step at a time. Pt in chair with alarm activated after treatment. Assessment Impulsive and at times has difficulty with turning and presents with decreased safety awareness. PT Short Term Goals Short Term Goals Time Frame: May 11, 2016 Transfers (B,C,W/C) (FIM): 5 Gait (FIM): 5 Distance (FIM): 3=150 ft Stairs (FIM): 4 PT Long-Term Goals Nurse Discharge Planner Goals PT Long-Term Goals Time Frame: May 25, 2016 Transfers (B,C,W/C) (FIM): 7 Sit to Lying (QC): 6 Lying-Sitting on Side/Bed(QC): 6 Sit to Stand (QC): 6 Rollin Roll Left to Right (QC): 6 Chair/Cao-gn-Ltqvo Xfer(QC): 6 Car Transfer (QC): 6 Does the Patient Walk: Yes Gait (FIM): 6 Gait distance (FIM): 3=150 ft Walk 10 feet (QC): 6 Walk 10ft-Uneven Surface(QC): 6 Walk 50ft with 2 Turns (QC): 6 Walk 150 ft (QC): 6 Gait Assistive Device: FWW Does the Pt use WC or Scooter?: No Stairs (FIM): 6 # of Steps: 12 1 Step (curb) (QC): 6 4 Steps (QC): 6 12 Steps (QC): 6 Picking up an Object (QC): 6 PT Plan Problem List Problem List: Activity Tolerance, Functional Strength, Safety Treatment/Plan Treatment Plan: Continue Plan of Care Treatment Plan: Bed Mobility, Education, Functional Activity Gamaliel, Functional Strength, Group Therapy, Gait, Safety, Therapeutic Exercise, Transfers Treatment Duration: May 25, 2016 Visits Per Week: 10-15 Minutes/Day (M-F): 60-90 Minutes/Day (Sat/Fierro): prn Safety Risks/Education Patient Education: Safety Issues Teaching Recipient: Patient Teaching Methods: Discussion Response to Teaching: Reinforcement Needed Time/GCodes Time In: 1345 Time Out: 1415 Total Billed Treatment Time: 30 Total Billed Treatment vsiit GT 30 MERNA HUMPHRIES PT May 19, 2016 16:19
--- NOTE | 2016-05-19 16:41 | Cardiology Progress Note ---
Subjective Subjective/Events-last exam Patient is sitting in a chair, feeling better. Denied any chest pain. Review of Systems General: No Chills, No Night Sweats, No Fatigue, No Malaise, No Appetite, No Other HEENT: No Head Aches, No Visual Changes, No Eye Pain, No Ear Pain, No Dysphasia , No Sinus Congestion, No Post Nasal Drip, No Sore Throat, No Other Pulmonary: No Dyspnea, No Cough, No Pleuritic Chest Pain, No Other Cardiovascular: No: Chest Pain, Edema, Lt Headedness, Orthopnea, Other, Palpitations, Paroxysmal Noc. Dyspnea Objective-Cardiology Exam Last Set of Vital Signs Vital Signs 05/13/16 05/19/16 08:46 05:04 Temp 98.6 Pulse 70 Resp 18 B/P (MAP) 113/61 Pulse Ox 95 O2 Delivery Room Air O2 Flow Rate 4.00 Capillary Refill : I&O Intake and Output 05/19/16 00:00 Intake Total 2200 ml Balance 2200 ml Intake Oral 2200 ml # Voids 8 General: Alert, Oriented X3, Cooperative, No Acute Distress HEENT: Atraumatic, PERRLA, EOMI, Mucous Memb Moist/[place], Other (possible periodontal inflammation/infection) Neck: Supple, No JVD Lungs: Clear to Auscultation Heart: Regular Rate Abdomen: Normal Bowel Sounds, Soft, No Tenderness Extremities: No Edema Neuro: Other (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) Results Lab Laboratory Tests Test 05/19/16 06:02 05/19/16 11:26 Range/Units Glucometer 175 H 170 H 70-110 MG/DL A/P-Cardiology Admission Diagnosis CVA HTN HLP CAD Assessment/Plan CVA-patient having some dysphagia, expressive aphasia. Patient has been in the acute rehabilitation unit receiving physical therapy, had worsening of his symptoms. Repeat MRI of brain revealed new area of infarct. Has been maintained on Plavix and aspirin. Unknown etiology. GIANCARLO done 05/13/16 revealed no intracardiac thrombus, no evidence of intracardiac shunt on bubble contrast study, LVEF approx 60%, trivial MR and TR, technically difficult study. Telemetry showed SR with BBB. S/P LINQ implantation, monitor for underlying A fib as a source of stroke. Coronary artery disease-patient reports history of [place] in the remote past. 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 I will try to obtain records. Hypertension-controlled. Continue to monitor blood pressure/heart rate Hyperlipidemia-maintained on statin. Diabetes mellitus-managed by primary care physician Left jaw and eye pain- Evaluated by Dr. Guerra and Dr. Brock. Placed on antibiotic for possible dental infection vs trigeminal neuralgia. Continue to monitor. Clinical Quality Measures DVT/VTE Risk/Contraindication: Risk Factor Score Per Nursin RFS Level Per Nursing on Admit: 4+=Very High GIOVANNY CARDOSO MD May 19, 2016 16:41
[2016-05-19 17:01] VITALS: BP 121/71
[2016-05-19] MEDS: FINASTERIDE (PROSCAR) 5 MG TAB PO SCH (19:58)
[2016-05-19] MEDS: SIMvastatin 20 MG (ZOCOR) TAB PO SCH (19:59)
[2016-05-19] MEDS: doxAzosin 4 MG (CARDURA) TAB PO SCH (19:59)
[2016-05-19] MEDS: DONEPEZIL 10 MG (ARICEPT) TAB PO SCH (19:59)
[2016-05-19 20:30] VITALS: BP 126/75
[2016-05-20] MEDS: PENICILLIN V K 250 MG TAB PO SCH ×4 (00:21→17:12)
[2016-05-20 05:14] VITALS: BP 123/71
[2016-05-20] MEDS: OMEGA 3 (FISH OIL) 1000 MG CAP PO SCH ×2 (06:31→17:12)
[2016-05-20] MEDS: glyBURIDE 5 MG (MICRONASE) TAB PO SCH ×2 (06:31→17:12)
[2016-05-20] MEDS: LIDOCAINE 2% VISCOUS 15 ML UDC PO SCH ×3 (06:31→17:12)
[2016-05-20] MEDS: lisINopril 20 MG (ZESTRIL) TAB PO SCH (08:18)
[2016-05-20] MEDS: CYANOCOBALAMIN 500 MCG TAB (VITAMIN B-12) PO SCH (08:19)
[2016-05-20] MEDS: CLOPIDOGREL 75 MG (PLAVIX) TABLET PO SCH (08:19)
[2016-05-20] MEDS: PHENYTOIN 100 MG (DILANTIN) CAP PO SCH ×2 (08:19→21:26)
[2016-05-20] MEDS: ASPIRIN 81 MG CHEW (CHILDREN'S ASA) PO SCH (08:19)
[2016-05-20] MEDS: carBAMazepine 100 MG (TEGretol) CHEW PO SCH ×2 (08:20→21:26)
--- NOTE | 2016-05-20 08:43 | Physical Therapy Daily Note ---
PT Daily Note-Current Subjective Patient in recliner pre tx, has no complaints of pain. Patient needs to get dressed, has a lot of difficulty with that and needs mod assist. Appearance Patient in recliner post tx with nurse call, tray, chair alarm. Mental Status Patient Orientation: Unable to Assess Transfers Functional [place] Measure 0=Not Assessed/NA 4=Minimal Assistance 1=Total Assistance 5=Supervision or Setup 2=Maximal Assistance 6=Modified [place] 3=Moderate Assistance 7=Complete IndependenceIRFPAI Quality Coding Scale 6 Independent with activity with or without an assistive device 5 Patient requires set up or clean up by helper. Patient completes activity by themselves 4 Supervision or touching assist (CGA). [place] provide cues , steadying assist 3 The helper provides less than half the effort to complete the activity 2 The helper provides more than half the effort to complete the activity 1 Dependent. The helper does all the effort to complete an activity 7 Patient refused to complete or attempt activity 9 The patient did not perform the activity before the current illness or injury 88 Not attempted due to Medical conditions or safety concerns Transfers (B, C, W/C) (FIM): 4 Sit to/from Stand: 4 Patient min assist for transfers today, he is having some problems with retropulsion and balance. Needs cues for safety and hand placement. Gait Training Gait (FIM): 4 Distance: 150'x2 Gait Level of Assist: 4 Gait Persons Needed: 1 Gait Assistive Device: FWW min assist for balance Exercises NuStep Minutes: 15 NuStep Workload: 5 Treatments transfers, ambulation, functional strengthening, dressing Assessment Current Status: Poor Progress Patient had a decline in function today. PT Short Term Goals Short Term Goals Time Frame: May 11, 2016 Transfers (B,C,W/C) (FIM): 5 Gait (FIM): 5 Distance (FIM): 3=150 ft Stairs (FIM): 4 PT Care Home Goals Care Home Goals PT Care Home Goals Time Frame: May 25, 2016 Transfers (B,C,W/C) (FIM): 7 Sit to Lying (QC): 6 Lying-Sitting on Side/Bed(QC): 6 Sit to Stand (QC): 6 Rollin Roll Left to Right (QC): 6 Chair/Atz-tm-Kemob Xfer(QC): 6 Car Transfer (QC): 6 Does the Patient Walk: Yes Gait (FIM): 6 Gait distance (FIM): 3=150 ft Walk 10 feet (QC): 6 Walk 10ft-Uneven Surface(QC): 6 Walk 50ft with 2 Turns (QC): 6 Walk 150 ft (QC): 6 Gait Assistive Device: FWW Does the Pt use WC or Scooter?: No Stairs (FIM): 6 # of Steps: 12 1 Step (curb) (QC): 6 4 Steps (QC): 6 12 Steps (QC): 6 Picking up an Object (QC): 6 PT Plan Problem List Problem List: Activity Tolerance, Functional Strength, Safety, Balance, Gait, Transfer, Bed Mobility, ROM Treatment/Plan Treatment Plan: Continue Plan of Care Treatment Plan: Bed Mobility, Education, Functional Activity Gamaliel, Functional Strength, Group Therapy, Gait, Safety, Therapeutic Exercise, Transfers Treatment Duration: May 25, 2016 Visits Per Week: 10-15 Minutes/Day (M-F): 60-90 Minutes/Day (Sat/Fierro): prn Safety Risks/Education Patient Education: Gait Training, Transfer Techniques, Safety Issues Teaching Recipient: Patient Teaching Methods: Demonstration, Discussion Response to Teaching: Reinforcement Needed Time/GCodes Time In: 800 Time Out: 845 Total Billed Treatment Time: 45 Total Billed Treatment 1 visit FA 15 min GT 15 min EX 15 min CORY STEIN PT May 20, 2016 08:43
--- NOTE | 2016-05-20 09:40 | Cardiology Progress Note ---
Subjective Subjective/Events-last exam patient is sitting in a chair receiving therapy, worsening today with his facial droop and muscle strength. Reveal device interrogation did not show any episode of atrial fibrillation. Review of Systems General: No Chills, No Night Sweats, No Fatigue, No Malaise, No Appetite, No Other HEENT: No Head Aches, No Visual Changes, No Eye Pain, No Ear Pain, No Dysphasia , No Sinus Congestion, No Post Nasal Drip, No Sore Throat, No Other Pulmonary: No Dyspnea, No Cough, No Pleuritic Chest Pain, No Other Cardiovascular: No: Chest Pain, Edema, Lt Headedness, Orthopnea, Other, Palpitations, Paroxysmal Noc. Dyspnea Objective-Cardiology Exam Last Set of Vital Signs Vital Signs 05/20/16 05:14 Temp 96.9 Pulse 67 Resp 18 B/P (MAP) 123/71 Pulse Ox 93 O2 Delivery Room Air Capillary Refill : I&O Intake and Output 05/20/16 00:00 Intake Total 950 ml Balance 950 ml Intake Oral 950 ml # Voids 9 General: Alert, Oriented X3, Cooperative, No Acute Distress HEENT: Atraumatic, PERRLA, EOMI, Mucous Memb Moist/[place], Other (possible periodontal inflammation/infection) Neck: Supple, No JVD Lungs: Clear to Auscultation Heart: Regular Rate, Normal S1, Normal S2 Abdomen: Normal Bowel Sounds, Soft, No Tenderness Extremities: No Clubbing, No Cyanosis, No Edema Skin: No Rashes, No Breakdown Neuro: Other (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) A/P-Cardiology Admission Diagnosis CVA HTN HLP CAD Assessment/Plan CVA-patient having some dysphagia, expressive aphasia. Patient has been in the acute rehabilitation unit receiving physical therapy, had worsening of his symptoms. Repeat MRI of brain revealed new area of infarct. Has been maintained on Plavix and aspirin. Unknown etiology. GIANCARLO done 05/13/16 revealed no intracardiac thrombus, no evidence of intracardiac shunt on bubble contrast study, LVEF approx 60%, trivial MR and TR, technically difficult study. Telemetry showed SR with BBB. S/P LINQ implantation, noted today to have slight induration in his symptoms, interrogation of his linq device did not show any episode of atrial fibrillation, I discussed the management plan with Dr. Mitchell, we will continue with physical therapy at this time. I will evaluate Plavix metabolism Coronary artery disease-patient reports history of CA in the remote past. Had net coordinator at [facility]. Hypertension-controlled. Continue to monitor blood pressure/heart rate Hyperlipidemia-maintained on statin. Diabetes mellitus-managed by primary care physician Left jaw and eye pain- Evaluated by Dr. Guerra and Dr. Brock. Placed on antibiotic for possible dental infection vs trigeminal neuralgia. Continue to monitor. Clinical Quality Measures DVT/VTE Risk/Contraindication: Risk Factor Score Per Nursin RFS Level Per Nursing on Admit: 4+=Very High GIOVANNY CARDOSO MD May 20, 2016 09:40
--- NOTE | 2016-05-20 10:23 | Progress Note-Hospitalist ---
Progress Note Progress Notes/Assess & Plan Date Seen 05/20/16 Diagonsis/Assessment & Plan Dr. Brizuela Review: Pt is infarcting again in cerebral region and on all medicine available to prevent. Switch to Aggrenox and baby Aspirin. REVEAL device did not reveal any AF. Pharmacy Review: Switch to Aggrenox and baby Aspirin. vending machine refiller: Pt is not doing well currently. Pt is on Plavix and Aspirin. Pt has not complained of left eye pain. Patient Interview: Pt was told his heart looks good. Pt is on medicine to prevent strokes and is still having issues. Pt states his pain meds are helping. Scribed by Herrera Coyne under the direct supervision of Dr. Mitchell. AF, vital signs stable, pleasant, up in chair Mostly aphasic no change Regular rate and rhythm, clear to auscultation bilaterally No edema Assessment: 1.previous CVA as characterized by speech abnormality and swallowing difficulties with another acute lacunar infarct prompting consultation with cardiology but GIANCARLO negative so placed loop recorder implantation 2.questionable recent increase in symptomatology but now more aphasic since yesterday 3.past history of myocardial infarction. 4.hypertension. 5.diabetes mellitus type II [id number]. 6.peripheral neuropathy 7. Left eye pain to trigeminal neuralgia responding to Tegretol Plan: Pain management w/APAP and Hydrocodone and DC Ultram to be able to start Tegretol Continue rehab recovery Appreciate cardiology input ASA 81mg along with Aggrenox MARYAM MITCHELL DO May 20, 2016 10:23
--- NOTE | 2016-05-20 11:05 | Occupational Ther Daily Note ---
OT Current Status-Daily Note Subjective Pt seen in room, up in bed, indicated that he didn't feel good but wasn't in any pain. Pt reported, "I want to quit" and talked a little about going to the [facility] next week. Appearance Alert, cooperative, looks sad Mental Status/Objective Functional [place] Measure 0=Not Assessed/NA 4=Minimal Assistance 1=Total Assistance 5=Supervision or Setup 2=Maximal Assistance 6=Modified [place] 3=Moderate Assistance 7=Complete [place] ADL-Treatment Pt did not want to brush his teeth, shave or shower (which is unusual for him). Struggled a little with supine to sit and needed min assist to stand, with some retropulsion. Min assist transfer to recliner, with FWW. Skilled cues for hand placement throughout, including help to get R hand on walker. Once seated, did AROM, with a little lag with R UE at shoulder. AROM elbow and distal was equal ( visual cues and occasional physical assist to do correctly). Pt worked with Theraputty for coordination and was able to use both hands together to find hidden beads. Also able to do gross grasp and roll putty into ball, using both hands. Pt was also able to put regular socks on, shoes on and tie his shoes, although it took some effort. Pt attempted to talk about going to [facility]dc and said "I want to quit."Pt left up in recliner, all needs met, chair alarm on. Pt said it was OK with him to call jewelry bearing maker to talk to him. Functional [place] Measure 0=Not Assessed/NA 4=Minimal Assistance 1=Total Assistance 5=Supervision or Setup 2=Maximal Assistance 6=Modified [place] 3=Moderate Assistance 7=Complete IndependenceIRFPAI Quality Coding Scale 6 Independent with activity with or without an assistive device 5 Patient requires set up or clean up by helper. Patient completes activity by themselves 4 Supervision or touching assist (CGA). [place] provide cues , steadying assist 3 The helper provides less than half the effort to complete the activity 2 The helper provides more than half the effort to complete the activity 1 Dependent. The helper does all the effort to complete an activity 7 Patient refused to complete or attempt activity 9 The patient did not perform the activity before the current illness or injury 88 Not attempted due to Medical conditions or safety concerns Education OT Patient Education: Progress toward Goal/Update tx plan, Purpose of tx/ functional activities, Transfer techniques Teaching Recipient: Patient Response to Teaching: Reinforcement Needed OT Short Term Goals Short Term Goals Time Frame: May 11, 2016 Eating(FIM): 5 Grooming(FIM): 5 Bathing(FIM): 4 Upper Body Dressing(FIM): 5 Lower Body Dressing(FIM): 5 Toileting(FIM): 5 Transfers (B,C,W/C) (FIM): 5 Toilet/Commode Transfer(FIM): 5 Shower Transfer(FIM): 4 Additional Short Term Goals: 1-Demonstrate ADL Tasks, 2-Verbalize Understanding , 3-ImproveStrength/[place] 1=Demonstrate adherence to instructed precautions during ADL tasks. 2=Patient will verbalize/demonstrate understanding of assistive devices/ modifications for ADL. 3=Patient will improve strength/tolerance for activity to enable patient to perform ADL's. OT Cad Designer Goals Cad Designer Goals Time Frame: May 18, 2016 Eating (FIM): 6 Eating (QC): 6 Groomin Oral Hygiene (QC): 6 Bathing(FIM): 5 Shower/Bathe Self (QC): 5 Upper Body Dressing(FIM): 6 Upper Body Dressing (QC): 6 Lower Body Dressing(FIM): 6 Lower Body Dressing (QC): 6 On/Off Footwear (QC): 6 Toileting(FIM): 6 Toileting Hygiene (QC): 6 Transfers (B,C,W/C) (FIM): 6 Toilet/Commode Transfer(FIM): 6 Toilet/Commode Transfer (QC): 6 Shower Transfer(FIM): 5 Comprehension(FIM): 3 Expression (FIM): 3 Social Interaction(FIM): 4 Additional Goals: 1-Demonstrate ADL Tasks, 2-Verbalize Understanding, 3- ImproveStrength/[place] 1=Demonstrate adherence to instructed precautions during ADL tasks. 2=Patient will verbalize/demonstrate understanding of assistive devices/ modifications for ADL. 3=Patient will improve strength/tolerance for activity to enable patient to perform ADL's. OT Education/Plan Problem List/Assessment Pt. was noted to run into items on the right side. Note right sided neglect. Discharge Recommendations Plan/Recommendations: Continue POC Treatment Plan/Plan of Care Patient would benefit from OT for education, treatment and training to promote independence in ADL's, mobility, safety and/or upper extremity function for ADL' s. Plan of Care: ADL Retraining, Functional Mobility, UE Funct Exercise/Act Treatment Duration: May 18, 2016 Visits Per Week: 10-12 Minutes/Day (M-F): 60-90 Minutes/Day (Sat/Fierro): PRN Agreement: Yes Rehab Potential: Guarded Time/GCodes Start Time: 09:15 Stop Time: 10:00 Total Time Billed (hr/min): 45 Billed Treatment Time visit, 30 minutes neuromotor, 15 minutes ADL DARELL GALVEZ OT May 20, 2016 11:05
[2016-05-20] MEDS: DIPYRIDAMOLE/ASA ER CAPSULE (AGGRENOX) PO SCH ×2 (11:32→21:26)
--- NOTE | 2016-05-20 12:57 | Speech Therapy Daily Note ---
Speech Daily Progress Note Subjective Pt up in chair, agreed to therapy. Pleasant and cooperative with all therapy tasks. Objective Phrase completion with 9/15 (60%) accy given min phonemic cues. Confrontational naming completed with 70% accy given min phonemic/phrase lead-in cues. 1-step commands completed with mod cues with 60% accy. [place] naming completed with 100% accy for days of week and 50% accy for months of year. Assessment Assessment Current Status: Fair Progress Treatment Plan Continue Plan of Care Communication Comprehension: 3 Expression: 2 Social Cognition Social Interaction: 3 Problem Solvin Memory: 2 Speech Short Term Goals Short Term Goals Short Term Goals 1. The patient will state names of five common objects and five common pictures with 80% accuracy and moderate clinician cueing. 2. The patient will repeat single words and short phrases with 70% accuracy with moderate clinician verbal cueing. 3. The patient will demonstrated 90% accuracy with simple yes/no questions. 4. The patient will display 90% accuracy with simple, one-step commands. Time Frame-STG: Three Weeks Speech Group Home Goals Maintenance Associate Goals 1. The patient will demonstrate improved receptive and expressive communication skills for increased safety and function with ADL's. Time Frame: Two Months Comprehension: 3 Expression: 3 Social Interaction: 4 Speech-Plan Treatment Plan Speech Therapy Treatment Plan: Continue Plan of Care Treatment Duration: June 29, 2016 Visits Per Week: Five Minutes/Day (M-F): 30 to 45 Rehab Potential: Fair Time Speech Therapy Time In: 10:48 Speech Therapy Time Out: 11:20 Billed Treatment Time [address] May 20, 2016 12:57
--- NOTE | 2016-05-20 14:33 | Therapy Group Daily Note ---
Therapy Daily Group Note Patient Education Topic Other List Below Other/Notes Pt was an active participant in OT/PT group. For introductions, he was able to state his name "Bruce", where he lived "[facility]" and if he had ever been scammed "No." He listened to guest speakers from [place] [employer] who talked about phone and credit card scams, public safety techniques, home safety, and community services available such as well checks. He walked back to his room with FWW and assistance and was left up in recliner, chair alarm on, all needs met. Start Time: 13:00 Stop Time: 14:15 Total Billed Treatment Time: 75 Total Billed Treatment visit, 75 minutes group DARELL GALVEZ OT May 20, 2016 14:33
[2016-05-20 18:31] VITALS: BP 122/68
[2016-05-20] MEDS: SIMvastatin 20 MG (ZOCOR) TAB PO SCH (21:26)
[2016-05-20] MEDS: FINASTERIDE (PROSCAR) 5 MG TAB PO SCH (21:26)
[2016-05-20] MEDS: DONEPEZIL 10 MG (ARICEPT) TAB PO SCH (21:26)
[2016-05-20] MEDS: doxAzosin 4 MG (CARDURA) TAB PO SCH (21:26)
[2016-05-21] MEDS: PENICILLIN V K 250 MG TAB PO SCH ×4 (00:56→17:00)
[2016-05-21 04:41] VITALS: BP 118/62
[2016-05-21] MEDS: OMEGA 3 (FISH OIL) 1000 MG CAP PO SCH ×2 (06:39→17:00)
[2016-05-21] MEDS: LIDOCAINE 2% VISCOUS 15 ML UDC PO SCH ×3 (06:39→17:00)
[2016-05-21] MEDS: glyBURIDE 5 MG (MICRONASE) TAB PO SCH ×2 (06:39→17:00)
[2016-05-21] MEDS: DIPYRIDAMOLE/ASA ER CAPSULE (AGGRENOX) PO SCH ×2 (09:23→20:24)
[2016-05-21] MEDS: ASPIRIN 81 MG CHEW (CHILDREN'S ASA) PO SCH (09:24)
[2016-05-21] MEDS: lisINopril 20 MG (ZESTRIL) TAB PO SCH (09:24)
[2016-05-21] MEDS: PHENYTOIN 100 MG (DILANTIN) CAP PO SCH ×2 (09:24→20:24)
[2016-05-21] MEDS: CYANOCOBALAMIN 500 MCG TAB (VITAMIN B-12) PO SCH (09:24)
[2016-05-21] MEDS: carBAMazepine 100 MG (TEGretol) CHEW PO SCH ×2 (09:25→20:24)
--- NOTE | 2016-05-21 10:39 | Physical Therapy Daily Note ---
PT Daily Note-Current Subjective Patient agrees to PT. Pain Numeric Pain Scale: 0-No Pain Location: No Pain Reported Mental Status Patient Orientation: Non-Verbal/Aphasic Transfers Functional [place] Measure 0=Not Assessed/NA 4=Minimal Assistance 1=Total Assistance 5=Supervision or Setup 2=Maximal Assistance 6=Modified [place] 3=Moderate Assistance 7=Complete IndependenceIRFPAI Quality Coding Scale 6 Independent with activity with or without an assistive device 5 Patient requires set up or clean up by helper. Patient completes activity by themselves 4 Supervision or touching assist (CGA). [place] provide cues , steadying assist 3 The helper provides less than half the effort to complete the activity 2 The helper provides more than half the effort to complete the activity 1 Dependent. The helper does all the effort to complete an activity 7 Patient refused to complete or attempt activity 9 The patient did not perform the activity before the current illness or injury 88 Not attempted due to Medical conditions or safety concerns Transfers (B, C, W/C) (FIM): 4 Scootin Sit to/from Stand: 4 Sit to Stand (QC): 4 CGA with gait belt for safety Gait Training Does the Patient Walk?: Yes Gait (FIM): 1 Distance (FIM): 1=up to 49 ft Distance: 15' x 2 Walk 10 feet (QC): 4 Gait Level of Assist: 4 Gait Persons Needed: 1 Gait Assistive Device: FWW functional, slightly unsteady Exercises Standing: Weight shifts standing balance activity at sink for patient to shave and brush teeth. Patient fatigues with this activity and ceased treatment upon completion. Patient was close SBA with this activity. Assessment Patient tolerated treatment and returned to recliner with needs met. PT Short Term Goals Short Term Goals Time Frame: May 11, 2016 Transfers (B,C,W/C) (FIM): 5 Gait (FIM): 5 Distance (FIM): 3=150 ft Stairs (FIM): 4 PT Senior Living Goals Senior Living Goals PT Senior Living Goals Time Frame: May 25, 2016 Transfers (B,C,W/C) (FIM): 7 Sit to Lying (QC): 6 Lying-Sitting on Side/Bed(QC): 6 Sit to Stand (QC): 6 Rollin Roll Left to Right (QC): 6 Chair/Otr-io-Ybvvi Xfer(QC): 6 Car Transfer (QC): 6 Does the Patient Walk: Yes Gait (FIM): 6 Gait distance (FIM): 3=150 ft Walk 10 feet (QC): 6 Walk 10ft-Uneven Surface(QC): 6 Walk 50ft with 2 Turns (QC): 6 Walk 150 ft (QC): 6 Gait Assistive Device: FWW Does the Pt use WC or Scooter?: No Stairs (FIM): 6 # of Steps: 12 1 Step (curb) (QC): 6 4 Steps (QC): 6 12 Steps (QC): 6 Picking up an Object (QC): 6 PT Plan Treatment/Plan Treatment Plan: Continue Plan of Care Treatment Plan: Bed Mobility, Education, Functional Activity Gamaliel, Functional Strength, Group Therapy, Gait, Safety, Therapeutic Exercise, Transfers Treatment Duration: May 25, 2016 Visits Per Week: 10-15 Minutes/Day (M-F): 60-90 Minutes/Day (Sat/Fierro): prn Time/GCodes Time In: 1020 Time Out: 1035 Total Billed Treatment Time: 15 Total Billed Treatment 1 visit FA 15 min FORD QUAN PT May 21, 2016 10:39
[2016-05-21 17:05] VITALS: BP 131/72
[2016-05-21] MEDS: SIMvastatin 20 MG (ZOCOR) TAB PO SCH (20:24)
[2016-05-21] MEDS: doxAzosin 4 MG (CARDURA) TAB PO SCH (20:24)
[2016-05-21] MEDS: FINASTERIDE (PROSCAR) 5 MG TAB PO SCH (20:24)
[2016-05-21] MEDS: DONEPEZIL 10 MG (ARICEPT) TAB PO SCH (20:24)
[2016-05-22] MEDS: PENICILLIN V K 250 MG TAB PO SCH ×5 (00:15→23:06)
[2016-05-22 04:53] VITALS: BP 114/61
[2016-05-22] MEDS: OMEGA 3 (FISH OIL) 1000 MG CAP PO SCH ×2 (06:08→16:27)
[2016-05-22] MEDS: glyBURIDE 5 MG (MICRONASE) TAB PO SCH ×2 (06:08→16:27)
[2016-05-22] MEDS: LIDOCAINE 2% VISCOUS 15 ML UDC PO SCH ×4 (06:08→16:00)
[2016-05-22] MEDS: CYANOCOBALAMIN 500 MCG TAB (VITAMIN B-12) PO SCH (09:18)
[2016-05-22] MEDS: carBAMazepine 100 MG (TEGretol) CHEW PO SCH ×2 (09:18→20:12)
[2016-05-22] MEDS: ASPIRIN 81 MG CHEW (CHILDREN'S ASA) PO SCH (09:18)
[2016-05-22] MEDS: PHENYTOIN 100 MG (DILANTIN) CAP PO SCH ×2 (09:18→20:12)
[2016-05-22] MEDS: DIPYRIDAMOLE/ASA ER CAPSULE (AGGRENOX) PO SCH ×2 (09:18→20:11)
[2016-05-22] MEDS: lisINopril 20 MG (ZESTRIL) TAB PO SCH (09:18)
[2016-05-22 18:36] VITALS: BP 126/69
[2016-05-22] MEDS: doxAzosin 4 MG (CARDURA) TAB PO SCH (20:12)
[2016-05-22] MEDS: DONEPEZIL 10 MG (ARICEPT) TAB PO SCH (20:12)
[2016-05-22] MEDS: FINASTERIDE (PROSCAR) 5 MG TAB PO SCH (20:12)
[2016-05-22] MEDS: SIMvastatin 20 MG (ZOCOR) TAB PO SCH (20:12)
[2016-05-23 05:26] VITALS: BP 125/65
[2016-05-23] MEDS: glyBURIDE 5 MG (MICRONASE) TAB PO SCH (06:07)
[2016-05-23] MEDS: LIDOCAINE 2% VISCOUS 15 ML UDC PO SCH ×2 (06:07→11:00)
[2016-05-23] MEDS: PENICILLIN V K 250 MG TAB PO SCH (06:07)
[2016-05-23] MEDS: OMEGA 3 (FISH OIL) 1000 MG CAP PO SCH (06:07)
[2016-05-23] MEDS: ASPIRIN 81 MG CHEW (CHILDREN'S ASA) PO SCH (08:25)
[2016-05-23] MEDS: CYANOCOBALAMIN 500 MCG TAB (VITAMIN B-12) PO SCH (08:25)
[2016-05-23] MEDS: carBAMazepine 100 MG (TEGretol) CHEW PO SCH (08:25)
[2016-05-23] MEDS: PHENYTOIN 100 MG (DILANTIN) CAP PO SCH (08:25)
[2016-05-23] MEDS: lisINopril 20 MG (ZESTRIL) TAB PO SCH (08:25)
[2016-05-23] MEDS: DIPYRIDAMOLE/ASA ER CAPSULE (AGGRENOX) PO SCH (08:25)
--- NOTE | 2016-05-23 08:31 | Cardiology Progress Note ---
Subjective Subjective/Events-last exam Patient in chair. No new complaints. Denies any CP. States facial pain has improved. Review of Systems General: No Night Sweats, No Fatigue, No Malaise HEENT: No Visual Changes, No Eye Pain, No Dysphasia Pulmonary: No Dyspnea, No Cough Cardiovascular: No: Chest Pain, Edema, Palpitations Gastrointestinal: No: Abdominal Pain, Nausea, Vomiting Genitourinary: No Dysuria, No Frequency Musculoskeletal: No: back pain, neck pain Neurological: Change in speech, Weakness, No: Confusion, Numbness Objective-Cardiology Exam Last Set of Vital Signs Vital Signs 05/23/16 05:26 Temp 97.1 Pulse 73 Resp 18 B/P (MAP) 125/65 Pulse Ox 98 O2 Delivery Room Air Capillary Refill : I&O Intake and Output 05/23/16 00:00 Intake Total 1360 ml Balance 1360 ml Intake Oral 1360 ml # Voids 9 # Bowel Movements 1 General: Alert, Oriented X3, Cooperative, No Acute Distress HEENT: Atraumatic, PERRLA, EOMI, Mucous Memb Moist/[place], Other (possible periodontal inflammation/infection) Neck: Supple, No JVD Lungs: Clear to Auscultation Heart: Regular Rate, Normal S1, Normal S2 Abdomen: Normal Bowel Sounds, Soft, No Tenderness Extremities: No Clubbing, No Cyanosis, No Edema Skin: No Rashes, No Breakdown Neuro: Other (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) A/P-Cardiology Admission Diagnosis CVA HTN HLP CAD Assessment/Plan CVA-patient having some dysphagia, expressive aphasia. Patient has been in the acute rehabilitation unit receiving physical therapy, had worsening of his symptoms. Repeat MRI of brain revealed new area of infarct. Has been maintained on Plavix and aspirin. Unknown etiology. GIANCARLO done 05/13/16 revealed no intracardiac thrombus, no evidence of intracardiac shunt on bubble contrast study, LVEF approx 60%, trivial MR and TR, technically difficult study. Telemetry showed SR with BBB. S/P LINQ implantation, noted on Monday to have slight induration in his symptoms, interrogation of his linq device did not show any episode of atrial fibrillation, I discussed the management plan with Dr. Mitchell, we will continue with physical therapy at this time. I will evaluate Plavix metabolism. Currently on Aggrenox and ASA. Coronary artery disease-patient reports history of [place] in the remote past. Had viscosity tester at [facility]. Hypertension-controlled. Continue to monitor blood pressure/heart rate Hyperlipidemia-maintained on statin. Diabetes mellitus-managed by primary care physician Left jaw and eye pain- Evaluated by Dr. Guerra and Dr. Brock. Placed on antibiotic for possible dental infection vs trigeminal neuralgia. Continue to monitor. Clinical Quality Measures DVT/VTE Risk/Contraindication: Risk Factor Score Per Nursin RFS Level Per Nursing on Admit: 4+=Very High EMMA DONOVAN May 23, 2016 08:31
[2016-05-23] MEDS ORDERED: DPAS20025 PO (09:45)
[2016-05-23] MEDS ORDERED: CARB100T6 PO (09:45)
--- NOTE | 2016-05-23 09:47 | Discharge Inst-Skilled Nursing ---
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 Residential Facility Order: Nursing Services, Slot Tag Inserter-Evaluate & Treat, Physical Therapy-Evaluate & Treat, Speech Language-Evaluate & Treat Discharge Diet: No Restrictions Daily Activity as Tolerated: Yes New & Resume Previous Orders Ara Mitchell May 23, 2016 09:46 ARA MITCHELL DO May 23, 2016 09:47
--- NOTE | 2016-05-23 11:06 | Physical Therapy Daily Note ---
PT Daily Note-Current Subjective Patient in recliner pre tx, agrees to PT. Patient is discharging today and just needs to be FIM'ed. Pain Numeric Pain Scale: 0-No Pain Appearance Patient in wheelchair post tx, his ride is here to take him out of this facility. Mental Status Patient Orientation: Unable to Assess Transfers Functional [place] Measure 0=Not Assessed/NA 4=Minimal Assistance 1=Total Assistance 5=Supervision or Setup 2=Maximal Assistance 6=Modified [place] 3=Moderate Assistance 7=Complete IndependenceIRFPAI Quality Coding Scale 6 Independent with activity with or without an assistive device 5 Patient requires set up or clean up by helper. Patient completes activity by themselves 4 Supervision or touching assist (CGA). [place] provide cues , steadying assist 3 The helper provides less than half the effort to complete the activity 2 The helper provides more than half the effort to complete the activity 1 Dependent. The helper does all the effort to complete an activity 7 Patient refused to complete or attempt activity 9 The patient did not perform the activity before the current illness or injury 88 Not attempted due to Medical conditions or safety concerns Transfers (B, C, W/C) (FIM): 4 Scootin Rollin Roll Left to Right (QC): 6 Supine to/from Sit: 6 Sit to/from Stand: 4 Sit to Lying (QC): 6 Sit to Stand (QC): 4 Chair/Uow-sx-Itlsj Xfer(QC): 4 Bed to/from Chair: 4 Car Transfer (QC): 88 Patient performs bed mobility with mod I and transfers with close CGA and cues for safety and hand placement. Gait Training Gait (FIM): 4 Distance: 150'x2 Walk 10 feet (QC): 4 Walk 50 ft with 2 Turns(QC): 4 Walk 150 ft (QC): 4 Walking 10ft/uneven surface-QC: 3 Gait Level of Assist: 4 Gait Persons Needed: 1 Gait Assistive Device: FWW Patient needs CGA to ambulate 150' with a rolling walker (including 50' with at least 2 turns of 90 degrees). However to go 10' on an uneven surface using a rolling walker he needs min assist to maintain balance. Stair Training Stair Training: Handrails/: 2 handrails Stairs (FIM): 2 #of Steps: 4 1 Step (curb) (QC): 3 4 Steps (QC): 3 12 Steps (QC): 88 Stairs: Pattern: Step to Level of Assist: 4 Patient needs min/mod assist to go up and down 4 steps using 2 handrails. He almost always proceeds using the wrong leg and needs cues and assist for positioning and balance. Balance Picking up an Object (QC): 88 Treatments bed mobility and transfers, ambulation, stair training Assessment Current Status: Poor Progress Patient has had a decline overall in balance and mobility and endurance. Patient is being discharged from this facility, see DC note. PT Short Term Goals Short Term Goals Time Frame: May 11, 2016 Transfers (B,C,W/C) (FIM): 5 Gait (FIM): 5 Distance (FIM): 3=150 ft Stairs (FIM): 4 PT Instructor Watch Assembly Goals Instructor Watch Assembly Goals PT Instructor Watch Assembly Goals Time Frame: May 25, 2016 Transfers (B,C,W/C) (FIM): 7 Sit to Lying (QC): 6 (met) Lying-Sitting on Side/Bed(QC): 6 (met) Sit to Stand (QC): 6 Rollin (met) Roll Left to Right (QC): 6 (met) Chair/Yvl-ty-Fpcka Xfer(QC): 6 Car Transfer (QC): 6 Does the Patient Walk: Yes Gait (FIM): 6 Gait distance (FIM): 3=150 ft Walk 10 feet (QC): 6 Walk 10ft-Uneven Surface(QC): 6 Walk 50ft with 2 Turns (QC): 6 Walk 150 ft (QC): 6 Gait Assistive Device: FWW Does the Pt use WC or Scooter?: No Stairs (FIM): 6 # of Steps: 12 1 Step (curb) (QC): 6 4 Steps (QC): 6 12 Steps (QC): 6 Picking up an Object (QC): 6 PT Plan Problem List Problem List: Activity Tolerance, Functional Strength, Safety, Balance, Gait, Transfer Treatment/Plan Treatment Plan: Discontinue PT Treatment Plan: Bed Mobility, Education, Functional Activity Gamaliel, Functional Strength, Group Therapy, Gait, Safety, Therapeutic Exercise, Transfers Treatment Duration: May 25, 2016 Visits Per Week: 10-15 Minutes/Day (M-F): 60-90 Minutes/Day (Sat/Fierro): prn Safety Risks/Education Patient Education: Gait Training, Transfer Techniques, Steps, Correct Positioning, Safety Issues Teaching Recipient: Patient Teaching Methods: Demonstration, Discussion Response to Teaching: Reinforcement Needed Time/GCodes Time In: 1045 Time Out: 1100 Total Billed Treatment Time: 15 Total Billed Treatment 1 visit GT 15' CORY STEIN PT May 23, 2016 11:06
--- NOTE | 2016-05-23 11:21 | Therapy Team Discharge Summary ---
Therapy Discharge Summary Discharge Recommendations Date of Discharge Therapy D/C Recommendations: Home w/ Family Support, Occupational Therapy Home Care, Scheduled Assistance Physical Therapy Patient came to rehab following a CVA. Upon admission patient performed bed mobility and transfers with min assist, ambulated 150' with min assist, and could go up and down 1 step using a rolling walker with CGA. Patient has been performing bed mobility and transfer training, balance and endurance training, functional strengthening, stair training, gait training, and education. Patient has made poor progress due to a declining medical status. He has only met his bed bug exterminator goals for bed mobility. Now, patient performs bed mobility with mod I, performs transfers with CGA (close guarding), can ambulate 150' with a rolling walker with CGA, and can go up and down 4 steps using 2 handrails with mod A. Patient is being discharged from this facility today and will be discharged from PT at this time. PT Embalmer Assistant Goals [facility] Goals PT Embalmer Assistant Goals Time Frame: May 25, 2016 Transfers (B,C,W/C) (FIM): 7 Roll Left to Right (QC): 6 (met) Sit to Lying (QC): 6 (met) Lying-Sitting on Side/Bed(QC): 6 (met) Sit to Stand (QC): 6 Chair/Oya-fq-Tvbkl Xfer(QC): 6 Car Transfer (QC): 6 Does the Patient Walk: Yes Gait (FIM): 6 Gait distance (FIM): 3=150 ft Walk 10 feet (QC): 6 Walk 10ft-Uneven Surface(QC): 6 Walk 50ft with 2 Turns (QC): 6 Walk 150 ft (QC): 6 Gait Assistive Device: FWW Does the Pt use WC or Scooter?: No Stairs (FIM): 6 # of Steps: 12 1 Step (curb) (QC): 6 4 Steps (QC): 6 12 Steps (QC): 6 Picking up an Object (QC): 6 OT Embalmer Assistant Goals [facility] Goals Time Frame: May 18, 2016 Eating (FIM): 6 Eating (QC): 6 Oral Hygiene (QC): 6 Grooming(FIM): 6 Bathing(FIM): 5 Shower/Bathe Self (QC): 5 Upper Body Dressing(FIM): 6 Upper Body Dressing (QC): 6 Lower Body Dressing(FIM): 6 Lower Body Dressing (QC): 6 On/Off Footwear (QC): 6 Toileting(FIM): 6 Toileting Hygiene (QC): 6 Transfers (B,C,W/C) (FIM): 6 Toilet/Commode Transfer(FIM): 6 Toilet/Commode Transfer (QC): 6 Shower Transfer(FIM): 5 Comprehension(FIM): 3 Expression (FIM): 3 Social Interaction(FIM): 4 Additional Goals: 1-Demonstrate ADL Tasks, 2-Verbalize Understanding, 3- ImproveStrength/Gamaliel 1=Demonstrate adherence to instructed precautions during ADL tasks. 2=Patient will verbalize/demonstrate understanding of assistive devices/ modifications for ADL. 3=Patient will improve strength/tolerance for activity to enable patient to perform ADL's. Speech Embalmer Assistant Goals Embalmer Assistant Goals 1. The patient will demonstrate improved receptive and expressive communication skills for increased safety and function with ADL's. Time Frame: Two Months Comprehension: 3 Expression: 3 Social Interaction: 4 CORY STEIN PT May 23, 2016 11:21
--- NOTE | 2016-05-23 15:09 | Occupational Ther Daily Note ---
OT Current Status-Daily Note Subjective Pt seen in room, up in recliner, agreeable to OT. No pain mentioned. Appearance Pleasant, cooperative, smiled and laughed occasionally Mental Status/Objective Functional [place] Measure 0=Not Assessed/NA 4=Minimal Assistance 1=Total Assistance 5=Supervision or Setup 2=Maximal Assistance 6=Modified [place] 3=Moderate Assistance 7=Complete [place] ADL-Treatment Functional [place] Measure 0=Not Assessed/NA 4=Minimal Assistance 1=Total Assistance 5=Supervision or Setup 2=Maximal Assistance 6=Modified [place] 3=Moderate Assistance 7=Complete IndependenceIRFPAI Quality Coding Scale 6 Independent with activity with or without an assistive device 5 Patient requires set up or clean up by helper. Patient completes activity by themselves 4 Supervision or touching assist (CGA). [place] provide cues , steadying assist 3 The helper provides less than half the effort to complete the activity 2 The helper provides more than half the effort to complete the activity 1 Dependent. The helper does all the effort to complete an activity 7 Patient refused to complete or attempt activity 9 The patient did not perform the activity before the current illness or injury 88 Not attempted due to Medical conditions or safety concerns Eating (FIM): 6 (Pt can open packages and cut up food. Extra time.) Eating (QC): 6 Grooming (FIM): 5 (Supervision throughout, seated in chair with arms. Pt put toothpaste on razor and did not see it. Had difficulty problem solving how to get shaving cream in his face. Washed face and hands in shower. ) Oral Hygiene (QC): 4 (Supervision) Bathing (FIM): 4 (Washed and dried all parts, sitting or standing with CGA. Skilled cues to wash lower legs. Perseverated on washing hair and arms. Shower bench, grab bars, hand held shower. Decreased safety awareness when standing) Bathing Location: L Arm, R Arm, L Upper Leg, R Upper Leg, L Lower Leg ( including foot), R Lower Leg (including foot), Chest, Abdomen, Buttocks, Perineal Area Shower/Bathe Self (QC): 4 (Supervision) Upper Body (FIM): 5 (Supervision. Pt got tangled up in shirt and needed help to just take it off and start over. ) Upper Body Dressing (QC): 4 Lower Body Dressing (FIM): 4 (Help to tie shoes. Doffed and donned pants, needing close SBA to CGA when standing because he tends to lean to the right. FWW for balance) Lower Body Dressing (QC): 4 (CGA) On/Off Footwear (QC): 3 (Just a little help to tie shoe laces) Toileting (FIM): 5 (SBA to manage clothing and hygiene. Grab bar, tall toilet, FWW. Supervision because he will get up without calling for help) Toileting Hygiene (QC): 4 (Supervision) Transfers (B, C, W/C) (FIM): 5 (Supervision. Consistently needs skilled cues to push up rather than pull up from chair. CGA when walking because he tends to lose balance or drift away from FWW when he makes left turns. Also consistently runs walker into door frame on the right side when entering rooms) Toilet/Commode Transfer (FIM): 5 (SBA when getting off and on toilet. Supervision for safety) Toilet Transfer (QC): 4 (Supervision for safety) Shower Transfer(FIM): 5 (SBA, shower bench, grab bars) Pt returned to recliner, left with chair alarm on, all needs met. Education OT Patient Education: Modified ADL techniques, Progress toward Goal/Update tx plan, Purpose of tx/functional activities, Safety issues, Transfer techniques Response to Teaching: Reinforcement Needed OT Short Term Goals Short Term Goals Time Frame: May 11, 2016 Eating(FIM): 5 Grooming(FIM): 5 Bathing(FIM): 4 Upper Body Dressing(FIM): 5 Lower Body Dressing(FIM): 5 Toileting(FIM): 5 Transfers (B,C,W/C) (FIM): 5 Toilet/Commode Transfer(FIM): 5 Shower Transfer(FIM): 4 Additional Short Term Goals: 1-Demonstrate ADL Tasks, 2-Verbalize Understanding , 3-ImproveStrength/Gamaliel 1=Demonstrate adherence to instructed precautions during ADL tasks. 2=Patient will verbalize/demonstrate understanding of assistive devices/ modifications for ADL. 3=Patient will improve strength/tolerance for activity to enable patient to perform ADL's. OT Snf Goals Snf Goals Time Frame: May 18, 2016 Eating (FIM): 6 (met 05-23-16) Eating (QC): 6 (met 05-23-16) Groomin (Not met 05-23-16) Oral Hygiene (QC): 6 (Not met 05-23-16) Bathing(FIM): 5 (Not met 05-23-16) Shower/Bathe Self (QC): 5 (Not met 05-23-16) Upper Body Dressing(FIM): 6 (Not met 05-23-16) Upper Body Dressing (QC): 6 (Not met 05-23-16) Lower Body Dressing(FIM): 6 (Not met 05-23-16) Lower Body Dressing (QC): 6 (Not met 05-23-16) On/Off Footwear (QC): 6 (Not met 05-23-16) Toileting(FIM): 6 (Not met 05-23-16) Toileting Hygiene (QC): 6 (Not met 05-23-16) Transfers (B,C,W/C) (FIM): 6 (Not met 05-23-16) Toilet/Commode Transfer(FIM): 6 (Not met 05-23-16) Toilet/Commode Transfer (QC): 6 (Not met 05-23-16) Shower Transfer(FIM): 5 (Met 05-23-16) Comprehension(FIM): 3 Expression (FIM): 3 Social Interaction(FIM): 4 Additional Goals: 1-Demonstrate ADL Tasks, 2-Verbalize Understanding, 3- ImproveStrength/Gamaliel 1=Demonstrate adherence to instructed precautions during ADL tasks. 2=Patient will verbalize/demonstrate understanding of assistive devices/ modifications for ADL. 3=Patient will improve strength/tolerance for activity to enable patient to perform ADL's. OT Education/Plan Problem List/Assessment Pt. was noted to run into items on the right side. Note right sided neglect. Discharge Recommendations Plan/Recommendations: Discharge/Goals Met (See tx plan for specifics) Treatment Plan/Plan of Care Patient would benefit from OT for education, treatment and training to promote independence in ADL's, mobility, safety and/or upper extremity function for ADL' s. Plan of Care: ADL Retraining, Functional Mobility, UE Funct Exercise/Act Treatment Duration: May 18, 2016 Visits Per Week: 10-12 Minutes/Day (M-F): 60-90 Minutes/Day (Sat/Fierro): PRN Agreement: Yes Rehab Potential: Fair Time/GCodes Start Time: 09:15 Stop Time: 10:25 Total Time Billed (hr/min): 70 Billed Treatment Time visit, 70 minutes ADL DARELL GALVEZ OT May 23, 2016 15:09
--- NOTE | 2016-05-23 15:27 | Occ Therapy Rehab Re-Cert ---
OT Re-Certification Form Plan of Care: ADL Retraining, Functional Mobility, Group Exercise/Act as Ind, UE Funct Exercise/Act, UE Neuromus Re-Ed/Coord Continue same goals. Pt making progress but tx plan is longer due to discharge plans Treatment Duration: May 23, 2016 # of days/week 5-6 Visits Per Week: 10-12 Minutes/Day (M-F): 60-90 Minutes/Day (Sat/Fierro): PRN Agreement: Yes Rehab Potential: Fair OT Short Term Goals Short Term Goals Time Frame: May 11, 2016 Eating(FIM): 5 Grooming(FIM): 5 Bathing(FIM): 4 Upper Body Dressing(FIM): 5 Lower Body Dressing(FIM): 5 Toileting(FIM): 5 Transfers (B,C,W/C) (FIM): 5 Toilet/Commode Transfer(FIM): 5 Shower Transfer(FIM): 4 Additional Short Term Goals: 1-Demonstrate ADL Tasks, 2-Verbalize Understanding , 3-ImproveStrength/Gamaliel 1=Demonstrate adherence to instructed precautions during ADL tasks. 2=Patient will verbalize/demonstrate understanding of assistive devices/ modifications for ADL. 3=Patient will improve strength/tolerance for activity to enable patient to perform ADL's. OT Emt Goals Half-Way Goals Time Frame: May 18, 2016 Eating (FIM): 6 (met 05-23-) Grooming(FIM): 6 (Not met 05-23-) Bathing(FIM): 5 (Not met 05-23-) Upper Body Dressing(FIM): 6 (Not met 05-23-16) Lower Body Dressing(FIM): 6 (Not met 05-23-16) Toileting(FIM): 6 (Not met --17) Transfers (B,C,W/C) (FIM): 6 (Not met 05-23-17) Toilet/Commode Transfer(FIM): 6 (Not met 05-23-) Shower Transfer(FIM): 5 (Met --17) Comprehension(FIM): 3 Expression (FIM): 3 Social Interaction(FIM): 4 Additional Goals: 1-Demonstrate ADL Tasks, 2-Verbalize Understanding, 3- ImproveStrength/Gamaliel 1=Demonstrate adherence to instructed precautions during ADL tasks. 2=Patient will verbalize/demonstrate understanding of assistive devices/ modifications for ADL. 3=Patient will improve strength/tolerance for activity to enable patient to perform ADL's. DARELL GALVEZ OT May 23, 2016 15:27
--- NOTE | 2016-05-23 15:33 | Therapy Team Discharge Summary ---
Therapy Discharge Summary Discharge Recommendations Date of Discharge Therapy D/C Recommendations: Home w/ Family Support, Occupational Therapy Home Care, Senior Care (TCU/NH) Occupational Therapy Pt was seen for skilled OT to increase his independence in basic self care to allow him to return home after CVA and decreased coordination/strength. On admission be needed mod to min assist with most ADLs. By discharge he needed supervision and setup for most ADLs and CGA when standing for bath. He was modified independent with eating. His coordination improved but he still has some R sided neglect, especially when walking during ADLs and needs supervision due to cognitive reasons. Equipment used included shower bench, FWW, grab bars and tall toilet. See tx plan for goals met. Pt discharged to [facility] with continued OT. PT Coordinator Of Health Services Goals Fci Goals PT Fci Goals Time Frame: May 25, 2016 Transfers (B,C,W/C) (FIM): 7 Roll Left to Right (QC): 6 (met) Sit to Lying (QC): 6 (met) Lying-Sitting on Side/Bed(QC): 6 (met) Sit to Stand (QC): 6 Chair/Znz-hk-Rasgr Xfer(QC): 6 Car Transfer (QC): 6 Does the Patient Walk: Yes Gait (FIM): 6 Gait distance (FIM): 3=150 ft Walk 10 feet (QC): 6 Walk 10ft-Uneven Surface(QC): 6 Walk 50ft with 2 Turns (QC): 6 Walk 150 ft (QC): 6 Gait Assistive Device: FWW Does the Pt use WC or Scooter?: No Stairs (FIM): 6 # of Steps: 12 1 Step (curb) (QC): 6 4 Steps (QC): 6 12 Steps (QC): 6 Picking up an Object (QC): 6 OT Coordinator Of Health Services Goals Coordinator Of Health Services Goals Time Frame: May 18, 2016 Eating (FIM): 6 (met 05-23-16) Eating (QC): 6 (met 05-23-16) Oral Hygiene (QC): 6 (Not met 05-23-16) Grooming(FIM): 6 (Not met 05-23-16) Bathing(FIM): 5 (Not met 05-23-16) Shower/Bathe Self (QC): 5 (Not met 4-10-17) Upper Body Dressing(FIM): 6 (Not met 05-23-16) Upper Body Dressing (QC): 6 (Not met 05-23-16) Lower Body Dressing(FIM): 6 (Not met 05-23-16) Lower Body Dressing (QC): 6 (Not met 05-23-16) On/Off Footwear (QC): 6 (Not met 05-23-16) Toileting(FIM): 6 (Not met 05-23-16) Toileting Hygiene (QC): 6 (Not met 05-23-16) Transfers (B,C,W/C) (FIM): 6 (Not met 05-23-16) Toilet/Commode Transfer(FIM): 6 (Not met 05-23-16) Toilet/Commode Transfer (QC): 6 (Not met 05-23-16) Shower Transfer(FIM): 5 (Met 05-23-16) Comprehension(FIM): 3 Expression (FIM): 3 Social Interaction(FIM): 4 Additional Goals: 1-Demonstrate ADL Tasks, 2-Verbalize Understanding, 3- ImproveStrength/Gamaliel 1=Demonstrate adherence to instructed precautions during ADL tasks. 2=Patient will verbalize/demonstrate understanding of assistive devices/ modifications for ADL. 3=Patient will improve strength/tolerance for activity to enable patient to perform ADL's. Speech Coordinator Of Health Services Goals Coordinator Of Health Services Goals 1. The patient will demonstrate improved receptive and expressive communication skills for increased safety and function with ADL's. Time Frame: Two Months Comprehension: 3 Expression: 3 Social Interaction: 4 DARELL GALVEZ OT May 23, 2016 15:33
--- NOTE | 2016-05-24 14:26 | Therapy Team Discharge Summary ---
Therapy Discharge Summary Discharge Recommendations Date of Discharge May 23, 2016 at 11:15 Therapy D/C Recommendations: Home w/ Family Support, Occupational Therapy Home Care, Senior Living (TCU/NH) Speech-Language Pathology The patient was recently admitted to [facility] following a CVA. Upon admission, the patient demonstrated moderate expressive and mild receptive aphasia. Unfortunately, the patient experienced a second stroke throughout his stay. Following the second stroke, the patient demonstrated severe expressive aphasia. Skilled speech pathology focused on confrontational naming, phrase completion, word-finding strategies, and orientation questions. The patient did not reach initial goals placed by speech pathology. Speech pathology recommends continued skilled speech intervention post discharge to target expressive communication. PT Fci Goals Media Director Goals PT Media Director Goals Time Frame: May 25, 2016 Transfers (B,C,W/C) (FIM): 7 Roll Left to Right (QC): 6 (met) Sit to Lying (QC): 6 (met) Lying-Sitting on Side/Bed(QC): 6 (met) Sit to Stand (QC): 6 Chair/Bap-rd-Cyqjm Xfer(QC): 6 Car Transfer (QC): 6 Does the Patient Walk: Yes Gait (FIM): 6 Gait distance (FIM): 3=150 ft Walk 10 feet (QC): 6 Walk 10ft-Uneven Surface(QC): 6 Walk 50ft with 2 Turns (QC): 6 Walk 150 ft (QC): 6 Gait Assistive Device: FWW Does the Pt use WC or Scooter?: No Stairs (FIM): 6 # of Steps: 12 1 Step (curb) (QC): 6 4 Steps (QC): 6 12 Steps (QC): 6 Picking up an Object (QC): 6 OT Media Director Goals Fci Goals Time Frame: May 18, 2016 Eating (FIM): 6 (met 4-10-17) Eating (QC): 6 (met 4-10-17) Oral Hygiene (QC): 6 (Not met 4-10-17) Grooming(FIM): 6 (Not met 4-10-17) Bathing(FIM): 5 (Not met 4-10-17) Shower/Bathe Self (QC): 5 (Not met 4-10-17) Upper Body Dressing(FIM): 6 (Not met 4-10-17) Upper Body Dressing (QC): 6 (Not met 4-10-17) Lower Body Dressing(FIM): 6 (Not met 05-23-16) Lower Body Dressing (QC): 6 (Not met 05-23-16) On/Off Footwear (QC): 6 (Not met 05-23-16) Toileting(FIM): 6 (Not met 05-23-16) Toileting Hygiene (QC): 6 (Not met 05-23-16) Transfers (B,C,W/C) (FIM): 6 (Not met 05-23-16) Toilet/Commode Transfer(FIM): 6 (Not met 05-23-16) Toilet/Commode Transfer (QC): 6 (Not met 05-23-16) Shower Transfer(FIM): 5 (Met 05-23-16) Comprehension(FIM): 3 Expression (FIM): 3 Social Interaction(FIM): 4 Additional Goals: 1-Demonstrate ADL Tasks, 2-Verbalize Understanding, 3- ImproveStrength/Gamaliel 1=Demonstrate adherence to instructed precautions during ADL tasks. 2=Patient will verbalize/demonstrate understanding of assistive devices/ modifications for ADL. 3=Patient will improve strength/tolerance for activity to enable patient to perform ADL's. Speech Media Director Goals Fci Goals 1. The patient will demonstrate improved receptive and expressive communication skills for increased safety and function with ADL's. Time Frame: Two Months Comprehension: 3 (Not Met) Expression: 3 (Not Met) Social Interaction: 4 (Not Met) Problem Solvin (Not Met) Memory: 4 (Not Met) AUBREY MCMILLAN May 24, 2016 14:26
[2016-05-26 07:04] LABS: CYP2C19 GENO *2/Neg; CYP2C19 SPEC Whole Blood
--- NOTE | 2016-06-01 12:51 | TEE REPORT ---
DATE OF PROCEDURE: 05/13/2016 ORDERING PHYSICIAN: Dr. Brizuela. ATTENDING PHYSICIAN: Dr. Alvarado CLINICAL DIAGNOSIS: Cerebral vascular accident. Transesophageal echocardiography was carried out under conscious sedation using multiplane probe. The patient tolerated the procedure well. Global left ventricular systolic function appears normal with an ejection fraction of approximately 60%. Aortic, mitral, tricuspid and pulmonic valve leaflets show good leaflet excursion. The aortic valve is trileaflet and exhibits mild thickening and sclerosis. Doppler imaging shows mild mitral and tricuspid regurgitation. Pulmonary artery systolic pressure is estimated to be approximately 25 to 30 mmHg on this study. There is no evidence of any intracardiac thrombus. Left atrial appendage was visualized and no thrombus was seen. We used a right arm pain to inject agitated saline contrast, which delineated the right heart well. There was no spill over of the contrast into the left heart, indicating no significant intracardiac shunt. No negative contrast was seen either. The visualized of the intra-atrial septum, however, was quite difficult. CONCLUSIONS: 1. No evidence of intracardiac thrombus. 2. No evidence of intracardiac shunt. 3. Normal global left ventricular systolic function with an ejection fraction of 60%. 4. Trivial to mild mitral and tricuspid regurgitation. Job ID: [id number] Dictated Date: 05/13/2016 08:58:00 Vocational Guidance Counselor Date: 05/13/2016 13:24:48/alfred
== END 2016-05-23 11:15 | DRG 40 ==
LOC: DELPENDDIS
PROVIDERS: ADMIT Physical Medicine & Rehabilitation; ATTEND Physical Medicine & Rehabilitation
PROC: 0JH602Z Insertion of Monitoring Device into Chest Subcutaneous Tissue and Fascia, Open Approach (ICD-10-PCS; principal; 2016-05-16)
DX: I69.351 Hemiplegia and hemiparesis following cerebral infarction affecting right dominant side (principal); I69.320 Aphasia following cerebral infarction; I63.512 Cerebral infarction due to unspecified occlusion or stenosis of left middle cerebral artery; R13.10 Dysphagia, unspecified; G50.0 Trigeminal neuralgia; K04.7 Periapical abscess without sinus; E11.51 Type 2 diabetes mellitus with diabetic peripheral angiopathy without gangrene; I10 Essential (primary) hypertension; I25.10 Atherosclerotic heart disease of native coronary artery without angina pectoris; E78.5 Hyperlipidemia, unspecified; I25.2 Old myocardial infarction; Z79.84 Long term (current) use of oral hypoglycemic drugs
CPT/HCPCS: 33282; 36415; 70486; 70551; 80053; 81000; 81225; 82962; 85025; 93312

== ENCOUNTER → 2016-07-20 | Outpatient (CLI) | payer MEDICARE ==
[~2016-07-20] VITALS: Ht 167.6 cm; Wt 93.0 kg
[~2016-07-20] MED LIST changes: +CARB100T6 PO; +CATHETER FLUSH 10 ML SYR IV PRN; +DPAS20025 PO; +REGADENOSON 0.4 MG/5 ML SYR (LEXISCAN) IV ONE
[2016-07-20 09:16] VITALS: BP 133/75
--- NOTE | 2016-07-21 06:07 | STRESS TEST ---
DATE OF SERVICE: 07/20/2016 LEXISCAN MYOVIEW STRESS TEST Baseline heart rate is 60. Baseline blood pressure 142/73. Baseline EKG is sinus rhythm with no ischemic changes, right bundle branch block. SUMMARY: The patient was injected with 10.38 mCi of technetium-99 Myoview and the resting images were obtained. Then the patient received 0.4 mg of Lexiscan followed by 30.8 mCi of technetium-99 Myoview. Throughout the test, there were no EKG changes. The resting and stress images were reviewed and compared in the short axis, horizontal long axis and vertical long axis views. Review of the images showed good radiotracer uptake with no significant ischemia or infarction on SPECT images. SSS is 1, SDS 1, TID value 1.08. On the gated images, the left ventricle appeared to be normal size with normal contractility. Calculated ejection fraction 65%. Job ID: [id number] DocumentID: [id number] Dictated Date: 07/20/2016 15:00:54 Electric Motor And Generator Assembler Date: 07/20/2016 19:29:54 Dictated By: GIOVANNY CARDOSO MD
== END ==
LOC: CARD 07:33
PROVIDERS: ATTEND Physician Assistant
DX: I63.8 Other cerebral infarction (principal); I65.23 Occlusion and stenosis of bilateral carotid arteries; E78.2 Mixed hyperlipidemia; I34.0 Nonrheumatic mitral (valve) insufficiency
CPT/HCPCS: 78452; 93017

== ENCOUNTER 2017-11-21 22:31 | Inpatient (IN) | payer MEDICARE ==
[~2017-11-21] VITALS: Ht 175.3 cm; Wt 91.7 kg
[~2017-11-21 22:31] MED LIST changes: -CATHETER FLUSH 10 ML SYR IV PRN; -REGADENOSON 0.4 MG/5 ML SYR (LEXISCAN) IV ONE
[2017-11-22] MEDS ORDERED: ACETAMINOPHEN 325 MG TABLET ONE (00:22)
[2017-11-22] MEDS ORDERED: NS IV 1000 ML 1,000 ML ONE (00:23)
[2017-11-22] MEDS ORDERED: ACETAMINOPHEN 325 MG TABLET PO PRN (00:30)
[2017-11-22] MEDS: NS IV 1000 ML 1,000 ML IV SCH ×2 (00:47→10:41)
[2017-11-22 04:00] VITALS: BP 141/75
[2017-11-22 04:13] VITALS: BP 166/71
[2017-11-22] MEDS ORDERED: RT-ALBUTEROL SULF 2.5 MG/3 ML PRE-MIX VIAL INH PRN (04:30)
[2017-11-22 05:27] LABS: BASOPHILS % (AUTO) 0 % (0-10); EOSINOPHILS # (AUTO) 0.2 10^3/uL (0.0-0.3); EOSINOPHILS % (AUTO) 3 % (0-10); HEMATOCRIT 33 % (40-54); HEMOGLOBIN 12.7 G/DL (13.3-17.7); LYMPHOCYTES # (AUTO) 2.6 X 10^3 (1.0-4.0); LYMPHOCYTES % (AUTO) 31 % (12-44); MEAN CORPUSCULAR HEMOGLOBIN 38 PG (25-34); MEAN CORPUSCULAR HGB CONC 38 G/DL (32-36); MEAN CORPUSCULAR VOLUME 99 FL (80-99); MEAN PLATELET VOLUME 9.2 FL (7.4-10.4); MONOCYTES # (AUTO) 0.9 X 10^3 (0.0-1.0); MONOCYTES % (AUTO) 11 % (0-12); NEUTROPHILS # (AUTO) 4.6 X 10^3 (1.8-7.8); NEUTROPHILS % (AUTO) 55 % (42-75); PLATELET COUNT 195 10^3/uL (130-400); RED BLOOD COUNT 3.34 10^6/uL (4.35-5.85); RED CELL DISTRIBUTION WIDTH 12.2 % (10.0-14.5); WHITE BLOOD COUNT 8.3 10^3/uL (4.3-11.0)
[2017-11-22 05:43] LABS: BUN/CREATININE RATIO 11; CALCIUM 8.1 MG/DL (8.5-10.1); CARBON DIOXIDE 21 MMOL/L (21-32); CHLORIDE 108 MMOL/L (98-107); CREATININE SERUM 0.73 MG/DL (0.60-1.30); GFR ESTIMATED > 60; GLUCOSE 161 MG/DL (70-105); POTASSIUM 3.8 MMOL/L (3.6-5.0); SODIUM 137 MMOL/L (135-145)
[2017-11-22 08:00] VITALS: BP 158/78
--- NOTE | 2017-11-22 11:54 | History & Physical-Hospitalist ---
History of Present Illness HPI/Chief Complaint The patient is an 87-year-old white male who referred to the hospitalist service from the emergency room at [facility]. He apparently lives in an assisted living facility. He had been troubled by a cough and his family member who is present today states that he seemed to get progressively more anxious as the day went on. Workup at the emergency room showed no evidence of pneumonia however he was unable to urinate. Bladder scan showed 600+ cc of urine. He was asked to urinate and could not. In attempt was made to place a Randolph with a COUDE. This was unsuccessful but caused hematuria. He was able to urinate 300+ ML's of urine. Transfer was accepted relative to the possibility of urinary retention and ultimate sepsis. His family member reports that cough had continued to be the primary complaint. He has limited speech ability. Chest x-ray report that accompanied him from [place] showed no evidence of pneumonia or other process. He was given Zosyn 4.5 g vancomycin 1500 mg and Levaquin 750 mg IV as well as 30 mL/kg of normal saline. It is noted that he had a CVA earlier this year and has had limited speech plus impaired gait and the requirement of using a walker for ambulation Source: family Exam Limitations: no limitations Date Seen 11/22/17 Time Seen by a Provider: 11:54 Attending Physician Lior Dasilva MD PCP Rafat Rios MD Referring Physician Date of Admission Nov 21, 2017 at 23:47 Home Medications & Allergies Home Medications Reviewed patient Home Medication Reconciliation performed by pharmacy medication reconciliations refrigerating technician and/or nursing. Patients Allergies have been reviewed. Allergies Allergies Coded Allergies dapagliflozin (Verified Allergy, Unknown, 11/22/17) donepezil (Verified Allergy, Unknown, 11/22/17) iodine (Verified Allergy, Unknown, 11/22/17) Past Fyvffon-Cdjhvv-Vyxwla Hx Past Med/Social Hx: Reviewed Nursing Past Med/Soc Hx Patient Social History Alcohol Use: Occasionally Uses Alcohol Beverage of Choice: Beer, Gabbs, Wine Recreational Drug Use: No Smoking Status: Former Smoker Type Used: Cigarettes Physical Abuse Screen: No Sexual Abuse: No Recent Foreign Travel: No Contact w/other who traveled: No Recent Hopitalizations: Yes Recent Infectious Disease Expo: No Immunizations Up To Date Pediatric: Yes Date of Pneumonia Vaccine: Dec 15, 2015 Date of Influenza Vaccine: Nov 20, 2017 Seasonal Allergies Seasonal Allergies: No Past Medical History Surgeries: Cardiac, Coronary Stent Currently Using CPAP: No Currently Using BIPAP: No Cardiac: Coronary Artery Disease, Heart Attack, Hypertension Neurological: Neuropathy, TIA Sexually Transmitted Disease: No HIV/AIDS: No Endocrine: Diabetes, Non-Insulin dep HEENT: Cataract Loss of Vision: Denies Hearing Impairment: Denies History of Blood Disorders: No Adverse Reaction to Blood Hensley: No Family History Diabetes mellitus 19 MOTHER FH: congestive heart failure 19 MOTHER Headache disorder Hypertension 19 FATHER Myocardial infarction 19 FATHER No Pertinent Family Hx Review of Systems Constitutional: other EENTM: other (watery nasal drainage) Respiratory: cough Cardiovascular: no symptoms reported Physical Exam Physical Exam Vital Signs Capillary Refill : Less Than 3 Seconds Height, Weight, BMI Height: 5'9.00" Weight: 202lbs. 1.0oz. 91.063879lc; 29.8 BMI Method:Stated General Appearance: No Apparent Distress, WD/WN HEENT: Normal ENT Inspection Neck: Normal Inspection Respiratory: Chest Non Tender, Lungs Clear, Normal Breath Sounds, No Accessory Muscle Use, No Respiratory Distress Cardiovascular: Regular Rate, Rhythm, No Edema, No Gallop, No JVD, No Murmur, Normal Peripheral Pulses Gastrointestinal: Normal Bowel Sounds, No Organomegaly, No Pulsatile Mass, Non Tender, Soft Extremity: Normal Capillary Refill, Normal Inspection Neurologic/Psychiatric: Alert, Oriented x3, No Motor/Sensory Deficits, Normal Mood/Affect Results Results/Procedures Labs Patient resulted labs reviewed. Assessment/Plan Admission Diagnosis Cough for the past 2 weeks. Likely viral. 2.diabetes mellitus type II. 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 4.prostatism Admission Status: Observation Assessment and Plan Patient has been seen by Dr. Guzman who recommends conservative care. He will be seen as an outpatient at Dr. Guzman s office next week. See discharge summary for medications and activities. Clinical Quality Measures DVT/VTE Risk/Contraindication: Risk Factor Score Per Nursin RFS Level Per Nursing on Admit: 3=High LIOR DASILVA MD Nov 22, 2017 11:54
--- NOTE | 2017-11-22 11:58 | Discharge Instructions ---
Discharge Instructions Patient Instructions Patient Instructions: Medications and routines as on the discharge sequence. Keep appointment with Dr. Guzman for next week. Activity & Diet Discharge Diet: No Restrictions Activity as Tolerated: Yes MANJU DASILVA MD Nov 22, 2017 11:58
[2017-11-22 12:00] VITALS: BP 163/72
--- NOTE | 2017-11-22 12:32 | CONSULTATION REPORT ---
DATE OF SERVICE: 11/22/2017 REFERRING PHYSICIAN: Lior Reinoso MD. SUMMARY: The patient admitted with apparently pneumonia, urosepsis, hematuria from [facility] where he was seen originally in an attempt to insert a Randolph catheter for a presumed retention of about 600 mL, was unsuccessful causing some hematuria after multiple attempts after which the patient voided 250 mL and was transferred here. Since then, he has been voiding well with no problems and clear urine. The patient has a questionable history of prostate surgery and he is not very clear about it and never was. IMPRESSION: 1. Gross hematuria, resolved 2. Urinary retention resolved. PLAN: I will do a postvoid residual bladder scanner and was only 190cc. We will observe, no instrumentation at this point. Sometime next week at the office as an outpatient, we will do a cystoscopy to check the channel and make sure there are no obstruction and/or false passages. Thank you for letting me participate in the care of this patient. We will follow with you. Job ID: [id number] DocumentID: [id number] Dictated Date: 11/22/2017 11:52:05 Risk Tech Date: 11/22/2017 12:31:11 Dictated By: BAMBI GOLDEN MD MTDD
[2017-11-22] MEDS ORDERED: IPRA30SP NS (12:50)
[2017-11-22] MEDS ORDERED: GUAI120L56 PO (12:50)
--- NOTE | 2017-12-11 10:25 | Physician Query-Final Dx ---
CRYSTAL HUNT 12/11/17 1025: Final Diagnosis Give Final Diagnosis Please give Final Diagnosis SERENITY DUNLAP 12/20/17 1014: CRYSTAL HUNT Dec 11, 2017 10:25 SERENITY DUNLAP Dec 20, 2017 10:14
--- NOTE | 2017-12-19 13:04 | Short Stay Summary-Hospitalist ---
Short Stay Diagnosis D/C Date Nov 22, 2017 at 15:16 Hematuria post unsuccessful attempt at insertion of catheter. 2.urinary tract infection. Clinical Quality Measures DVT/VTE Risk/Contraindication: Risk Factor Score Per Nursin RFS Level Per Nursing on Admit: 3=High MANJU DASILVA MD Dec 19, 2017 13:04
== END 2017-11-22 15:16 | DRG 699 ==
LOC: 4TH 23:47
PROVIDERS: ADMIT Internal Medicine; ATTEND Internal Medicine
DX: S37.30XA Unspecified injury of urethra, initial encounter (principal); R31.0 Gross hematuria; N39.0 Urinary tract infection, site not specified; R33.9 Retention of urine, unspecified; I25.10 Atherosclerotic heart disease of native coronary artery without angina pectoris; I10 Essential (primary) hypertension; E11.40 Type 2 diabetes mellitus with diabetic neuropathy, unspecified; I25.2 Old myocardial infarction; Z86.73 Personal history of transient ischemic attack (TIA), and cerebral infarction without residual deficits; Z87.891 Personal history of nicotine dependence
CPT/HCPCS: 36415; 80048; 83605; 85025; 94760

== ENCOUNTER 2018-05-19 22:00 | Inpatient (IN) | payer MEDICARE ==
[~2018-05-19] VITALS: Ht 175.3 cm; Wt 91.6 kg
[~2018-05-19 22:00] MED LIST changes: +GUAI120L56 PO; +IPRA30SP NS
[2018-05-19] MEDS ORDERED: RT-ALBUTEROL/IPRATROPIUM 3 ML (DUONEB) VIAL ONE (22:04)
[2018-05-19] MEDS ORDERED: RT-ALBUTEROL SULF 2.5 MG/3 ML PRE-MIX VIAL ONE (22:10)
[2018-05-19] MEDS ORDERED: cefTRIAXone FOR IV USE 1,000 MG in WATER (STERILE) FOR INJECTION 10 ML IV ONE (22:15)
--- OUTSIDE RECORDS SUMMARY | 2018-05-19 22:27 | XMS REPORT | Continuity of Care Document ---
Author Organization Unknown Address Unknown Allergies There is no data. Medications There is no data. Problems There is no data. Procedures There is no data. Results Test Result Range A1C - 05/07/18 10:11 HEMOGLOBIN A1c 6.4 % of total Hgb <5.7 Encounters ACCT No. Visit Date/Time Discharge Status Pt. Type Provider Facility Loc./Unit Complaint [id number] 05/19/2018 17:20:00 [facility] [id number] 05/07/2018 09:00:00 Document Registration
[2018-05-19] MEDS ORDERED: methylPREDNISolone 125 MG (Solu-MEDROL) VIAL IVP ONE (22:30)
[2018-05-19 22:36] LABS: BASOPHILS % (AUTO) 0 % (0-10); EOSINOPHILS # (AUTO) 0.1 10^3/uL (0.0-0.3); EOSINOPHILS % (AUTO) 2 % (0-10); HEMATOCRIT 34 % (40-54); HEMOGLOBIN 12.6 G/DL (13.3-17.7); LYMPHOCYTES % (AUTO) 24 % (12-44); MEAN CORPUSCULAR HEMOGLOBIN 38 PG (25-34); MEAN CORPUSCULAR HGB CONC 37 G/DL (32-36); MEAN CORPUSCULAR VOLUME 105 FL (80-99); MEAN PLATELET VOLUME 9.2 FL (7.4-10.4); MONOCYTES % (AUTO) 12 % (0-12); NEUTROPHILS # (AUTO) 5.1 X 10^3 (1.8-7.8); NEUTROPHILS % (AUTO) 63 % (42-75); PLATELET COUNT 174 10^3/uL (130-400); RED CELL DISTRIBUTION WIDTH 13.2 % (10.0-14.5); WHITE BLOOD COUNT 8.2 10^3/uL (4.3-11.0)
[2018-05-19 22:44] LABS: INR 1.1 (0.8-1.4); PROTHROMBIN TIME PATIENT 14.1 SEC (12.2-14.7)
[2018-05-19 22:54] LABS: ALANINE AMINOTRANSFERASE 19 U/L (0-55); ALBUMIN 3.6 GM/DL (3.2-4.5); ALKALINE PHOSPHATASE 57 U/L (40-136); BILIRUBIN,TOTAL 0.6 MG/DL (0.1-1.0); BUN/CREATININE RATIO 12; CALCIUM 8.4 MG/DL (8.5-10.1); CARBON DIOXIDE 22 MMOL/L (21-32); CHLORIDE 100 MMOL/L (98-107); CREATININE SERUM 0.94 MG/DL (0.60-1.30); GFR ESTIMATED > 60; GLUCOSE 393 MG/DL (70-105); MAGNESIUM 2.2 MG/DL (1.8-2.4); POTASSIUM 3.8 MMOL/L (3.6-5.0); SODIUM 133 MMOL/L (135-145); TOTAL PROTEIN 6.4 GM/DL (6.4-8.2)
--- NOTE | 2018-05-19 23:12 | NUR ---
REPORT TO ILYA GARCIA
[2018-05-19] MEDS ORDERED: NS IV 500 ML 500 ML IV ONE (23:17)
[2018-05-19] MEDS ORDERED: inSUlin (REGULAR) HUMAN 1 UNIT/0.01 ML (CHARGE PER UNIT) IV ONE (23:30)
--- OUTSIDE RECORDS SUMMARY | 2018-05-19 23:59 | XMS REPORT | Continuity of Care Document ---
Author Organization Unknown Address Unknown Allergies There is no data. Medications There is no data. Problems There is no data. Procedures There is no data. Results Test Result Range A1C - 05/07/18 10:11 HEMOGLOBIN A1c 6.4 % of total Hgb <5.7 Encounters ACCT No. Visit Date/Time Discharge Status Pt. Type Provider Facility Loc./Unit Complaint [id number] 05/19/2018 17:20:00 [facility] Out[facility] SELF[facility] [id number] 05/07/2018 09:00:00 Document Registration
[2018-05-20] VITALS (7 sets, daily range): BP systolic 109–131; BP diastolic 53–66
[2018-05-20] MEDS ORDERED: ONDANSETRON 4 MG/2 ML (SDV) Z0FRAN IV PRN (01:00)
[2018-05-20] MEDS ORDERED: NS IV 1000 ML 1,000 ML IV SCH (01:00)
[2018-05-20] MEDS ORDERED: AZITHROMYCIN INJECTION 500 MG in NS (IVPB) 250 ML IV SCH (01:00)
[2018-05-20] MEDS ORDERED: RT-ALBUTEROL/IPRATROPIUM 3 ML (DUONEB) VIAL INH PRN (02:30)
--- NOTE | 2018-05-20 03:30 | NUR ---
pt cool and diaphoretic, aroused drowsy and pt is aphagic, fsbs done 214 mg/dl. more alert as time passes.
[2018-05-20] MEDS: methylPREDNISolone 125 MG (Solu-MEDROL) VIAL IVP SCH ×3 (04:44→16:40)
[2018-05-20 05:38] LABS: BASOPHILS % (AUTO) 0 % (0-10); EOSINOPHILS % (AUTO) 0 % (0-10); HEMATOCRIT 34 % (40-54); HEMOGLOBIN 12.2 G/DL (13.3-17.7); LYMPHOCYTES # (AUTO) 0.5 X 10^3 (1.0-4.0); LYMPHOCYTES % (AUTO) 7 % (12-44); MEAN CORPUSCULAR HEMOGLOBIN 38 PG (25-34); MEAN CORPUSCULAR HGB CONC 36 G/DL (32-36); MEAN CORPUSCULAR VOLUME 105 FL (80-99); MEAN PLATELET VOLUME 9.1 FL (7.4-10.4); MONOCYTES # (AUTO) 0.2 X 10^3 (0.0-1.0); MONOCYTES % (AUTO) 3 % (0-12); NEUTROPHILS % (AUTO) 90 % (42-75); PLATELET COUNT 171 10^3/uL (130-400); RED CELL DISTRIBUTION WIDTH 13.2 % (10.0-14.5); WHITE BLOOD COUNT 7.8 10^3/uL (4.3-11.0)
[2018-05-20 05:58] LABS: ALANINE AMINOTRANSFERASE 18 U/L (0-55); ALBUMIN 3.6 GM/DL (3.2-4.5); ALKALINE PHOSPHATASE 55 U/L (40-136); BILIRUBIN,TOTAL 0.5 MG/DL (0.1-1.0); BUN/CREATININE RATIO 14; CALCIUM 8.3 MG/DL (8.5-10.1); CARBON DIOXIDE 23 MMOL/L (21-32); CHLORIDE 102 MMOL/L (98-107); CREATININE SERUM 0.86 MG/DL (0.60-1.30); GFR ESTIMATED > 60; GLUCOSE 264 MG/DL (70-105); POTASSIUM 4.3 MMOL/L (3.6-5.0); SODIUM 135 MMOL/L (135-145); TOTAL PROTEIN 6.5 GM/DL (6.4-8.2)
--- NOTE | 2018-05-20 07:36 | Diagnostic Imaging Report ---
INDICATION: Shortness of breath. Comparison made with prior examination from 05/02/2016. FINDINGS: Heart size is normal. There is mild venous congestion. There is no pleural effusion, pneumothorax or pneumonia. The mediastinum is unremarkable. Pacemaker overlies the left heart border. IMPRESSION: Interval placement of a pacemaker. Mild central pulmonary venous congestion. Dictated by: Dictated on workstation # [id number]
[2018-05-20] MEDS: RT-ALBUTEROL/IPRATROPIUM 3 ML (DUONEB) VIAL INH SCH ×4 (07:57→20:10)
[2018-05-20] MEDS: AZITHROMYCIN 250 MG TAB (ZITHROMAX) PO SCH (08:23)
[2018-05-20 11:04] LABS: BILIRUBIN,URINE NEGATIVE (NEGATIVE); CLARITY,URINE SLIGHTLY CLOUDY; COLOR,URINE YELLOW; GLUCOSE, URINE (UA) 4+ (NEGATIVE); KETONES,URINE NEGATIVE (NEGATIVE); LEUKOCYTE ESTERASE ,URINE NEGATIVE (NEGATIVE); NITRITE,URINE NEGATIVE (NEGATIVE); PH,URINE 6 (5-9); PROTEIN,URINE 2+ (NEGATIVE); UROBILINOGEN,URINE 1 MG/DL (NORMAL)
[2018-05-20 11:18] LABS: BACTERIA,URINE NEGATIVE /HPF
[2018-05-20] MEDS ORDERED: FUROSEMIDE 40 MG/4 ML INJ (LASIX) ONE (11:34)
--- NOTE | 2018-05-20 11:44 | NUR ---
DR DE LEÓN HERE, ORDERED TO GIVE LASIX 40MG IV NOW, DC IV FLUIDS AND GET ABG'S, O2 ON PER NC AT 2 LITERS, WHEEZES HEARD
[2018-05-20 11:52] LABS: ABG BASE EXCESS 0.2 MMOL/L (-2.5-2.5); ABG OXYGEN SATURATION 96 % (94-100); ABG PCO2 41 MMHG (35-45); ABG PH 7.39 (7.37-7.43); ABG PO2 73 MMHG (79-93); ABG TCO2 25.8 MMOL/L (21.0-31.0)
[2018-05-20 11:54] LABS: ALLENS TEST YES-POS; INSPIRED O2 2; PATIENT TEMP 98.2; VENTILATOR NO
[2018-05-20] MEDS ORDERED: FUROSEMIDE 40 MG/4 ML INJ (LASIX) IVP NR (12:30)
--- NOTE | 2018-05-20 14:12 | NUR ---
LACTIC ACID 4.77, RESULTS CALLED TO DR DE LEÓN, ORDER TO REPEAT IN FOUR HOURS, BP 126/58,PULSE 74, O2 SAT 96 PERCENT, TEMP 98.6, O2 ON PER NC AT 2 LITERS, DENIES PAIN, GOOD URINE OUTPUT FROM LASIX, UP IN CHAIR WATCHING TV WITH FAMILY
--- NOTE | 2018-05-20 18:11 | ED Respiratory ---
General Chief Complaint: Respiratory Problems Stated Complaint: PNEUMONIA; HYPOXIA; DIABETES;APHASIA DEMENTIA Nursing Triage Note: PT TO ED PER [facility] FOR C/O SOB ONSET THIS AFTERNOON AFTER BEING DX W/ PNEUMONIA THIS AM. PT IS NONVERBAL R/T STROKE. PRODUCTIVE MOIST COUGH NOTED. PER EMS, BREATHING TX ADMINISTERED ENROUTE. PT CURRENTLY ON 4L NC. NO OTHER C/O VOICED Source: patient, family, EMS Exam Limitations: other (PT IS NON-VERBAL BUT CAN NOD HEAD YES/NO--SEEMS APPROPRIATELY) History of Present Illness Date Seen by Provider: May 19, 2018 Time Seen by Provider: 22:09 Initial Comments PT ARRIVES VIA [facility] FROM [facility]. PT HAS BEEN SICK FOR AT LEAST A WEEK WITH COUGH AND CONGESTION WAS STARTED ON MUCINEX ON MONDAY, AND HAD SEEN DR. ROSALES FOR ROUTINE EXAM THAT DAY APPARENTLY PT'S SYMPTOMS WORSENED, AND RX FOR ZITHROMAX WAS CALLED IN YESTERDAY AND PT TOOK A DOSE LAST NIGHT PT HAS HAD INCREASED COUGH AND SHORTNESS OF BREATH TODAY, SO WENT TO URGENT CARE THIS AM AND WAS DX WITH PNEUMONIA. NO NEW RX'S WERE GIVEN. PT HAS HAD INCREASED SHORTNESS OF BREATH AND PT REPORTEDLY HAD O2 SATS OF 85-88 % AT NURSING FACILITY. FAMILY WANTED PT ADMITTED HERE, SO EMS WAS DIRECTED TO COME TO THIS ER EMS GAVE DUONEB TREATMENT EN ROUTE, AND PT IS STILL WITH WHEEZING ON ARRIVAL O2 SATS 95-97/5 ON 4L/NC ON ARRIVAL PT DOES NOT HAVE A HISTORY OF RESPIRATORY PROBLEMS, DOES NOT WEAR HOME O2 PT DENIES ANY PAIN ANYWHERE PT DENIES FEVER. PT IS FULL CODE PCP: DR. ROSALES Allergies and Home Medications Allergies Coded Allergies: dapagliflozin (Verified Allergy, Unknown, 11/22/17) donepezil (Verified Allergy, Unknown, 11/22/17) iodine (Verified Allergy, Unknown, 11/22/17) Home Medications Aspirin 81 Mg Tab.chew, 81 MG PO HS, (Reported) Carbamazepine 100 Mg Tab.chew, 100 MG PO BID Prescribed by: MARYAM MANZO on 05/23/16 2319 Cyanocobalamin (Vitamin B-12) 2,500 Mcg Tablet, 1,250 MCG PO DAILY, (Reported) TAKES 1/2 OF A (2,500 MCG) TABLET Dipyridamole/Aspirin 1 Ea Cap, 1 EA PO BID Prescribed by: MARYAM MANZO on 05/23/16 0945 Donepezil HCl 10 Mg Tablet, 10 MG PO HS, (Reported) Doxazosin Mesylate 8 Mg Tablet, 4 MG PO HS, (Reported) TAKES 1/2 OF A (8 MG) TABLET Finasteride 5 Mg Tablet, 5 MG PO HS, (Reported) Fish Oil/Dha/Epa 1 Each Capsule, 2,400 MG PO BID, (Reported) TAKES 2 (1,200 MG) CAPSULES Glyburide 5 Mg Tablet, 5 MG PO BIDAC, (Reported) Guaifenesin/Codeine Phosphate 120 Ml Liquid, 10 ML PO 4 TIMES A DAY PRN for COUGH Prescribed by: MANJU DASILVA on 11/22/17 1250 Ipratropium [place] 30 Ml [place], 30 ML NS twice a day 1 puff each nostril twice a day Prescribed by: MANJU DASILVA on 11/22/17 1250 Lisinopril 40 Mg Tablet, 40 MG PO DAILY, (Reported) Phenytoin Sodium Extended 100 Mg Capsule, 200 MG PO BID, (Reported) TAKES 2 (100 MG) CAPSULES Simvastatin 40 Mg Tablet, 20 MG PO HS, (Reported) TAKES 1/2 OF A (40 MG) TABLET Patient Home Medication List Home Medication List Reviewed: Yes Review of Systems Review of Systems Constitutional: weakness EENTM: nose congestion Respiratory: see HPI, cough, short of breath, wheezing Cardiovascular: No chest pain Musculoskeletal: other (NO SWELLING) Psychiatric/Neurological: Pre-Existing Deficit, Other (PT WITH APHASIA) Past Emtmdqd-Wsdzlv-Uyhnoe Hx Patient Social History Alcohol Use: Regular Use Number of Drinks Today: 1 Alcohol Beverage of Choice: [place], Wine Recreational Drug Use: No Smoking Status: Former Smoker Type Used: Cigarettes Recent Foreign Travel: No Contact w/Someone Who Travel: No Recent Infectious Disease Expo: No Recent Hopitalizations: Yes Physical Abuse: No Sexual Abuse: No Mistreated: No Fear: No Immunizations Up To Date PED Vaccines UTD: Yes Date of Pneumonia Vaccine: Dec 15, 2015 Date of Influenza Vaccine: Nov 20, 2017 Seasonal Allergies Seasonal Allergies: Yes Past Medical History Surgeries: Yes (KNEE SCOPE; CARDIAC CATHS WITH STENT; LOOP RECORDER) Cardiac, Coronary Stent, Orthopedic Respiratory: No Currently Using CPAP: No Currently Using BIPAP: No Cardiac: Yes (CARDIAC CATH WITH STENT; LOOP RECORDER IN PLACE) Coronary Artery Disease, Heart Attack, High Cholesterol, Hypertension Neurological: Yes (CVA WITH APHASIA; TRIGEMINAL NEURALGIA) Neuropathy, Stroke, TIA Sexually Transmitted Disease: No HIV/AIDS: No Genitourinary: Yes Prostate Problems Gastrointestinal: No Musculoskeletal: Yes (KNEE SCOPE) Endocrine: Yes Diabetes, Non-Insulin dep Are Your Blood Sugars Over 250: No HEENT: Yes Cataract Loss of Vision: Denies Hearing Impairment: Denies Cancer: No Psychosocial: Yes Depression Integumentary: No Blood Disorders: No Adverse Reaction/Blood Tranf: No Family Medical History Diabetes mellitus 19 MOTHER FH: congestive heart failure 19 MOTHER Headache disorder Hypertension 19 FATHER Myocardial infarction 19 FATHER No Pertinent Family Hx Physical Exam Vital Signs - First Documented Capillary Refill : NONELess Than 3 Seconds Height: 5'9.00" Weight: 200lbs. 8.0oz. 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, no motor/sensory deficits ( GROSSLY INTACT), alert, normal mood/affect, aphasia Skin: normal color, warm/dry Focused Exam Lactic Acid Level Laboratory Tests Test 05/19/18 22:20 Lactic Acid Level 2.56 MMOL/L (0.50-2.00) *H Progress/Results/Core Measures Suspected Sepsis Recent Fever Within 48 Hours: No Infection Criteria Present: Suspected New Infection New/Unexplained Altered Menta: No Sepsis Screen: No Definite Risk SIRS Temperature:97.6 Pulse: 72 Respiratory Rate: 18 Laboratory Tests 05/19/18 22:20: White Blood Count 8.2 Blood Pressure 131 /64 Mean: 86 Laboratory Tests 05/19/18 22:20: Creatinine 0.94, INR Comment 1.1, Platelet Count 174, Total Bilirubin 0.6 Results/Orders Lab Results Laboratory Tests Test 05/19/18 22:20 Range/Units White Blood Count 8.2 4.3-11.0 10^3/uL Red Blood Count 3.29 L 4.35-5.85 10^6/uL Hemoglobin 12.6 L 13.3-17.7 G/DL Hematocrit 34 L 40-54 % Mean Corpuscular Volume 105 H 80-99 FL Mean Corpuscular Hemoglobin 38 H 25-34 PG Mean Corpuscular Hemoglobin Concent 37 H 32-36 G/DL Red Cell Distribution Width 13.2 10.0-14.5 % Platelet Count 174 130-400 10^3/uL Mean Platelet Volume 9.2 7.4-10.4 FL Neutrophils (%) (Auto) 63 42-75 % Lymphocytes (%) (Auto) 24 12-44 % Monocytes (%) (Auto) 12 0-12 % Eosinophils (%) (Auto) 2 0-10 % Basophils (%) (Auto) 0 0-10 % Neutrophils # (Auto) 5.1 1.8-7.8 X 10^3 Lymphocytes # (Auto) 2.0 1.0-4.0 X 10^3 Monocytes # (Auto) 1.0 0.0-1.0 X 10^3 Eosinophils # (Auto) 0.1 0.0-0.3 10^3/uL Basophils # (Auto) 0.0 0.0-0.1 10^3/uL Prothrombin Time 14.1 12.2-14.7 SEC INR Comment 1.1 0.8-1.4 Activated Partial Thromboplast Time 29 24-35 SEC Sodium Level 133 L 135-145 MMOL/L Potassium Level 3.8 3.6-5.0 MMOL/L Chloride Level 100 98-107 MMOL/L Carbon Dioxide Level 22 21-32 MMOL/L Anion Gap 11 5-14 MMOL/L Blood Urea Nitrogen 11 7-18 MG/DL Creatinine 0.94 0.60-1.30 MG/DL Estimat Glomerular Filtration Rate > 60 BUN/Creatinine Ratio 12 Glucose Level 393 H 70-105 MG/DL Lactic Acid Level 2.56 *H 0.50-2.00 MMOL/L Calcium Level 8.4 L 8.5-10.1 MG/DL Corrected Calcium 8.7 8.5-10.1 MG/DL Magnesium Level 2.2 1.8-2.4 MG/DL Total Bilirubin 0.6 0.1-1.0 MG/DL Aspartate Amino Transf (AST/SGOT) 16 5-34 U/L Alanine Aminotransferase (ALT/SGPT) 19 0-55 U/L Alkaline Phosphatase 57 40-136 U/L Troponin I < 0.028 <0.028 NG/ML B-Type Natriuretic Peptide 27.9 <100.0 PG/ML Total Protein 6.4 6.4-8.2 GM/DL Albumin 3.6 3.2-4.5 GM/DL Micro Results Microbiology 05/19/18 Blood Culture - Preliminary, Resulted No growth 05/19/18 Blood Culture - Preliminary, Resulted No growth 05/19/18 Influenza Types A,B Antigen (KELLEY) - Final, Complete My Orders Orders - RUBY ROJAS DO Albuterol/Ipra Inhalation Soln (Duoneb I (05/19/18 22:04) Cbc With Automated Diff (05/19/18 22:05) Comprehensive Metabolic Panel (05/19/18 22:05) Blood Culture (05/19/18 22:05) Sputum Culture (05/19/18 22:05) Urinalysis (05/19/18 22:05) Urine Culture (05/19/18 22:05) Protime With Inr (05/19/18 22:05) Partial Thromboplastin Time (05/19/18 22:05) Chest 1 View, Ap/Pa Only (05/19/18 22:05) Saline Lock/Iv-Start (05/19/18 22:05) Saline Lock/Iv-Start (05/19/18 22:05) Ekg Tracing (05/19/18 22:05) Troponin I (05/19/18 22:05) Vital Signs Adult Sepsis Patie Q15M (05/19/18 22:05) O2 (05/19/18 22:05) Remove Rings In Anticipation O (05/19/18 22:05) Lactic Acid Analyzer (05/19/18 22:05) Influenza A And B Antigens (05/19/18 22:05) Ceftriaxone For Iv Use (Rocephin For I (05/19/18 22:15) BNP (05/19/18 22:05) Magnesium (05/19/18 22:05) Albuterol Pre-Mix Nebs (Rt) (Proventil (05/19/18 22:10) Methylprednisolone Sod Succ (Solu-Medrol (05/19/18 22:30) Vital Signs/I&O 05/19/18 05/19/18 05/19/18 22:02 22:02 22:19 Temp 99.7 Pulse 89 Resp 20 B/P (MAP) 109/69 (82) Pulse Ox 96 97 O2 Delivery Nasal Cannula Nasal Cannula Nasal Cannula O2 Flow Rate 4.00 4.00 4.00 Capillary Refill : NONELess Than 3 Seconds Blood Pressure Mean: 86 Progress Note : Progress Note PT WITH INCREASED AERATION, DECREASED WHEEZING BUT HAS RHONCHI AND UPPER AIRWAY NOISE O2 SATS REMAINED IN LOW TO MID 90'S NO DETERIORATION IN PT'S CONDITION DURING ER STAY ECG Initial ECG Impression Date: May 19, 2018 Initial ECG Impression Time: 22:24 Initial ECG Rate: 90 Initial ECG Rhythm: Normal Sinus (RBBB) Diagnostic Imaging Comments CXR--BIBASILAR INFILTRATES, PENDING RADIOLOGIST REVIEW Reviewed: Reviewed by Me Departure Communication (Admissions) 1030--SPOKE WITH DR. DE LEÓN, ACCEPTS PT FOR ADMIT Impression Primary Impression: Pneumonia Additional Impressions: Hypoxia HX OF CVA WITH APHASIA NIDDM Disposition: ADMITTED INPATIENT Condition: Improved Departure-Patient Inst. Referrals: JOSÉ MIGUEL ROSALES MD (PCP) Primary Care Physician RUBY ROJAS DO May 20, 2018 18:11
--- NOTE | 2018-05-20 18:27 | History & Physicial (CHS) ---
HPI History of Present Illness: 88 yo M that presented with hypoxia after being diagnosed with PNA yesterday. Patient states that he has not yet got his antibiotic that was sent to the pharmacy. States that he has been short of breath for several days. Patient does not have a home oxygen requirement. Recent stroke has left him with aphasia. Source: patient Exam Limitations: clinical condition Date seen by provider: May 20, 2018 Time Seen by Provider: 11:00 Attending Physician Kade Valdivia MD PCP Self,Rafat NUÑEZ Consult Date of Admission May 19, 2018 at 23:15 Home Medications Home Medications Reviewed patient Home Medication Reconciliation performed by pharmacy medication reconciliations soil field technician and/or nursing. Patients Allergies have been reviewed. Allergies Coded Allergies: dapagliflozin (Verified Allergy, Unknown, 11/22/17) donepezil (Verified Allergy, Unknown, 11/22/17) iodine (Verified Allergy, Unknown, 11/22/17) RND-Vkudxw-Ebjinz Hx Patient Social History Alcohol Use: Regular Use Recreational Drug Use: No Smoking Status: Former Smoker Type Used: Cigarettes Recent Foreign Travel: No Contact w/other who traveled: No Recent Hopitalizations: Yes Recent Infectious Disease Expo: No Physical Abuse Screen: No Sexual Abuse: No Immunizations Up To Date Date of Pneumonia Vaccine: Dec 15, 2015 Date of Influenza Vaccine: Nov 20, 2017 Past Medical History CVA with aphasia Family Medical History Significant Family History: No Pertinent Family Hx Family History: Diabetes mellitus 19 MOTHER FH: congestive heart failure 19 MOTHER Headache disorder Hypertension 19 FATHER Myocardial infarction 19 FATHER Review of Systems (CHC) Constitutional: no symptoms reported, fever, weakness EENTM: nose congestion, throat pain Respiratory: cough, dyspnea on exertion, short of breath Cardiovascular: no symptoms reported; No chest pain, No edema, No palpitations Gastrointestinal: no symptoms reported; No abdominal pain, No constipation, No diarrhea, No loss of appetite, No nausea, No vomiting Genitourinary: no symptoms reported; No dysuria, No frequency, No hematuria Musculoskeletal: no symptoms reported; No back pain, No joint pain, No muscle pain Skin: no symptoms reported; No rash Psychiatric/Neurological: No Symptoms Reported Reviewed Test Results Reviewed Test Results Lab Laboratory Tests Test 05/19/18 22:20 05/20/18 00:18 05/20/18 03:32 05/20/18 05:20 Range/Units White Blood Count 8.2 7.8 4.3-11.0 10^3/uL Red Blood Count 3.29 L 3.22 L 4.35-5.85 10^6/uL Hemoglobin 12.6 L 12.2 L 13.3-17.7 G/DL Hematocrit 34 L 34 L 40-54 % Mean Corpuscular Volume 105 H 105 H 80-99 FL Mean Corpuscular Hemoglobin 38 H 38 H 25-34 PG Mean Corpuscular Hemoglobin Concent 37 H 36 32-36 G/DL Red Cell Distribution Width 13.2 13.2 10.0-14.5 % Platelet Count 174 171 130-400 10^3/uL Mean Platelet Volume 9.2 9.1 7.4-10.4 FL Neutrophils (%) (Auto) 63 90 H 42-75 % Lymphocytes (%) (Auto) 24 7 L 12-44 % Monocytes (%) (Auto) 12 3 0-12 % Eosinophils (%) (Auto) 2 0 0-10 % Basophils (%) (Auto) 0 0 0-10 % Neutrophils # (Auto) 5.1 7.0 1.8-7.8 X 10^3 Lymphocytes # (Auto) 2.0 0.5 L 1.0-4.0 X 10^3 Monocytes # (Auto) 1.0 0.2 0.0-1.0 X 10^3 Eosinophils # (Auto) 0.1 0.0 0.0-0.3 10^3/uL Basophils # (Auto) 0.0 0.0 0.0-0.1 10^3/uL Prothrombin Time 14.1 12.2-14.7 SEC INR Comment 1.1 0.8-1.4 Activated Partial Thromboplast Time 29 24-35 SEC Sodium Level 133 L 135 135-145 MMOL/L Potassium Level 3.8 4.3 3.6-5.0 MMOL/L Chloride Level 100 102 98-107 MMOL/L Carbon Dioxide Level 22 23 21-32 MMOL/L Anion Gap 11 10 5-14 MMOL/L Blood Urea Nitrogen 11 12 7-18 MG/DL Creatinine 0.94 0.86 0.60-1.30 MG/DL Estimat Glomerular Filtration Rate > 60 > 60 BUN/Creatinine Ratio 12 14 Glucose Level 393 H 264 H 70-105 MG/DL Lactic Acid Level 2.56 *H 4.00 *H 0.50-2.00 MMOL/L Calcium Level 8.4 L 8.3 L 8.5-10.1 MG/DL Corrected Calcium 8.7 8.6 8.5-10.1 MG/DL Magnesium Level 2.2 1.8-2.4 MG/DL Total Bilirubin 0.6 0.5 0.1-1.0 MG/DL Aspartate Amino Transf (AST/SGOT) 16 16 5-34 U/L Alanine Aminotransferase (ALT/SGPT) 19 18 0-55 U/L Alkaline Phosphatase 57 55 40-136 U/L Troponin I < 0.028 <0.028 NG/ML B-Type Natriuretic Peptide 27.9 <100.0 PG/ML Total Protein 6.4 6.5 6.4-8.2 GM/DL Albumin 3.6 3.6 3.2-4.5 GM/DL Glucometer 214 H 70-110 MG/DL Test 05/20/18 07:35 05/20/18 11:21 05/20/18 11:47 05/20/18 13:41 Range/Units Urine Color YELLOW Urine Clarity SLIGHTLY CLOUDY Urine pH 6 5-9 Urine Specific [place] 1.015 L 1.016-1.022 Urine Protein 2+ H NEGATIVE Urine Glucose (UA) 4+ H NEGATIVE Urine Ketones NEGATIVE NEGATIVE Urine Nitrite NEGATIVE NEGATIVE Urine Bilirubin NEGATIVE NEGATIVE Urine Urobilinogen 1 NORMAL MG/DL Urine Leukocyte Esterase NEGATIVE NEGATIVE Urine RBC (Auto) NEGATIVE NEGATIVE Urine RBC NONE /HPF Urine WBC NONE /HPF Urine Squamous Epithelial Cells NONE /HPF Urine Crystals NONE /LPF Urine Bacteria NEGATIVE /HPF Urine Casts NONE /LPF Urine Mucus NEGATIVE /LPF Urine Culture Indicated CULTURE PENDING Lactic Acid Level 2.42 *H 4.77 *H 0.50-2.00 MMOL/L Blood Gas Puncture Site R RAD Blood Gas Patient Temperature 98.2 Arterial Blood pH 7.39 7.37-7.43 Arterial Blood Partial Pressure CO2 41 35-45 MMHG Arterial Blood Partial Pressure O2 73 L 79-93 MMHG Arterial Blood HCO3 25 23-27 MMOL/L Arterial Blood Total CO2 25.8 21.0-31.0 MMOL/L Arterial Blood Oxygen Saturation 96 94-100 % Arterial Blood Base Excess 0.2 -2.5-2.5 MMOL/L Izaiah Test YES-POS Blood Gas Ventilator Setting NO Blood Gas Inspired Oxygen 2 Test 05/20/18 17:49 Range/Units Lactic Acid Level 1.35 0.50-2.00 MMOL/L Physical Exam-(CHC) Physical Exam Vital Signs VS - Last 72 Hours, by Label 05/19/18 05/19/18 05/19/18 05/20/18 22:02 22:02 22:19 00:30 Temp 99.7 99.7 Pulse 89 91 Resp 20 18 B/P (MAP) 109/69 (82) 110/60 (77) Pulse Ox 96 97 97 O2 Delivery Nasal Cannula Nasal Cannula Nasal Cannula Nasal Cannula O2 Flow Rate 4.00 4.00 4.00 3.00 05/20/18 05/20/18 05/20/18 05/20/18 00:51 01:00 02:05 04:00 Temp 98.3 97.8 Pulse 87 82 69 Resp 18 B/P (MAP) 111/66 109/53 (71) Pulse Ox 97 91 93 O2 Delivery Nasal Cannula Nasal Cannula Nasal Cannula O2 Flow Rate 3.00 3.00 FiO2 28 05/20/18 05/20/18 05/20/18 05/20/18 04:44 07:00 08:00 08:00 Temp 98.0 Pulse 69 63 65 Resp 18 B/P (MAP) 112/55 (74) Pulse Ox 92 95 O2 Delivery Nasal Cannula Nasal Cannula O2 Flow Rate 2.00 05/20/18 05/20/18 05/20/18 05/20/18 08:01 11:21 12:00 13:00 Temp 98.3 Pulse 70 86 Resp 20 B/P (MAP) 122/60 (80) Pulse Ox 95 96 95 O2 Delivery Nasal Cannula Nasal Cannula Nasal Cannula O2 Flow Rate 2.00 2.00 2.00 05/20/18 05/20/18 05/20/18 14:28 15:15 16:00 Temp 96.0 97.6 Pulse 74 72 Resp 20 18 B/P (MAP) 126/58 (80) 131/64 (86) Pulse Ox 96 96 97 O2 Delivery Nasal Cannula Nasal Cannula Nasal Cannula O2 Flow Rate 2.00 2.00 2.00 Capillary Refill : NONELess Than 3 Seconds General Appearance: mild distress HEENT: PERRL/EOMI Neck: non-tender, full range of motion, supple Respiratory: respiratory distress, crackles, wheezing Cardiovascular: normal peripheral pulses, regular rate, rhythm, no edema, no murmur Gastrointestinal: normal bowel sounds, non tender, soft, no organomegaly Back: no CVA tenderness, no vertebral tenderness Extremities: normal range of motion, no calf tenderness, normal capillary refill, pedal edema (1+ pitting edema) 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, no motor/sensory deficits, alert, aphasia Skin: normal color, warm/dry Lymphatic: no adenopathy Assessment/Plan Assessment/Plan Admission Status: Inpatient Order (span 2 midnights) Reason for Inpatient Admission: Requiring oxygen and IV antibiotics (1) CAP (community acquired pneumonia) Status: Acute Assessment & Plan: - Azithromycin, MAT protocol (2) Hypoxia Status: Acute Assessment & Plan: - Titrate oxygen as tolerated (3) HTN (hypertension) Status: Acute Assessment & Plan: - Continue home meds Qualifiers: Qualified Codes: I10 - Essential (primary) hypertension (4) CVA (cerebral vascular accident) Status: Chronic (5) DVT prophylaxis Status: Acute Assessment & Plan: - Lovenox Clinical Quality Measures DVT/VTE Risk/Contraindication: Risk Factor Score Per Nursin RFS Level Per Nursing on Admit: 4+=Very High Copy Copies To 1: SELF,KADE BUCIO MD, MD May 20, 2018 18:27
[2018-05-20] MEDS ORDERED: CARBAMAZEPINE 100 MG PO SCH (21:00)
[2018-05-20] MEDS ORDERED: NON-FORMULARY MEDICATION 1 EA EA (Phenytoin Sodium Extended 200 MG) PO SCH (21:00)
[2018-05-20] MEDS: DIPYRIDAMOLE/ASA ER CAPSULE (AGGRENOX) PO SCH (21:57)
[2018-05-20] MEDS: FINASTERIDE (PROSCAR) 5 MG TAB PO SCH (21:57)
[2018-05-20] MEDS: PHENYTOIN 100 MG (DILANTIN) CAP PO SCH (21:57)
[2018-05-20] MEDS: carBAMazepine 100 MG (TEGretol) CHEW PO SCH (21:58)
[2018-05-20] MEDS: cefTRIAXone FOR IV USE 1,000 MG in WATER (STERILE) FOR INJECTION 10 ML IV SCH (21:58)
[2018-05-21 00:12] VITALS: BP 128/60
[2018-05-21 04:05] VITALS: BP 157/79
[2018-05-21 06:42] LABS: BASOPHILS % (AUTO) 0 % (0-10); EOSINOPHILS # (AUTO) 0.1 10^3/uL (0.0-0.3); EOSINOPHILS % (AUTO) 0 % (0-10); HEMATOCRIT 35 % (40-54); HEMOGLOBIN 12.6 G/DL (13.3-17.7); LYMPHOCYTES # (AUTO) 2.4 X 10^3 (1.0-4.0); LYMPHOCYTES % (AUTO) 18 % (12-44); MEAN CORPUSCULAR HEMOGLOBIN 38 PG (25-34); MEAN CORPUSCULAR HGB CONC 36 G/DL (32-36); MEAN CORPUSCULAR VOLUME 105 FL (80-99); MEAN PLATELET VOLUME 9.1 FL (7.4-10.4); MONOCYTES # (AUTO) 1.2 X 10^3 (0.0-1.0); MONOCYTES % (AUTO) 9 % (0-12); NEUTROPHILS # (AUTO) 9.2 X 10^3 (1.8-7.8); NEUTROPHILS % (AUTO) 72 % (42-75); PLATELET COUNT 188 10^3/uL (130-400); RED CELL DISTRIBUTION WIDTH 13.3 % (10.0-14.5); WHITE BLOOD COUNT 12.8 10^3/uL (4.3-11.0)
[2018-05-21 07:07] LABS: ALANINE AMINOTRANSFERASE 19 U/L (0-55); ALBUMIN 3.6 GM/DL (3.2-4.5); ALKALINE PHOSPHATASE 56 U/L (40-136); BILIRUBIN,TOTAL 0.4 MG/DL (0.1-1.0); BUN/CREATININE RATIO 21; CALCIUM 8.6 MG/DL (8.5-10.1); CARBON DIOXIDE 28 MMOL/L (21-32); CHLORIDE 99 MMOL/L (98-107); CREATININE SERUM 0.73 MG/DL (0.60-1.30); GFR ESTIMATED > 60; GLUCOSE 211 MG/DL (70-105); POTASSIUM 3.9 MMOL/L (3.6-5.0); SODIUM 135 MMOL/L (135-145); TOTAL PROTEIN 6.3 GM/DL (6.4-8.2)
[2018-05-21 08:00] VITALS: BP 161/69
[2018-05-21] MEDS: RT-ALBUTEROL/IPRATROPIUM 3 ML (DUONEB) VIAL INH SCH ×4 (08:00→20:14)
[2018-05-21] MEDS ORDERED: lisINopril 40 MG (PRINIVIL) TABLET PO SCH (09:00)
[2018-05-21] MEDS: DIPYRIDAMOLE/ASA ER CAPSULE (AGGRENOX) PO SCH (09:01)
[2018-05-21] MEDS: PHENYTOIN 100 MG (DILANTIN) CAP PO SCH ×2 (09:02→21:53)
[2018-05-21] MEDS: AZITHROMYCIN 250 MG TAB (ZITHROMAX) PO SCH (09:02)
[2018-05-21] MEDS: carBAMazepine 100 MG (TEGretol) CHEW PO SCH (09:02)
[2018-05-21] MEDS: ACETAMINOPHEN 500 MG TAB (TYLENOL) PO PRN ×2 (09:04→21:54)
--- NOTE | 2018-05-21 09:33 | NUR ---
PRIOR TO A.M. MEDICATIONS PULSE WAS 63 B/P 161/69
[2018-05-21] MEDS ORDERED: TRAM50TA2 PO (09:51)
[2018-05-21] MEDS ORDERED: GUAI600T43 PO (09:51)
[2018-05-21] MEDS ORDERED: ASPI-983 PO (09:51)
[2018-05-21] MEDS ORDERED: CARB15DR OU (09:51)
[2018-05-21] MEDS ORDERED: LORA10TA7 PO (09:51)
[2018-05-21] MEDS ORDERED: POLY17PO6 PO (09:51)
[2018-05-21] MEDS ORDERED: CLOP75TA69 PO (09:51)
[2018-05-21] MEDS ORDERED: GUAI-813 PO (09:51)
[2018-05-21] MEDS ORDERED: SILV25CR21 TOP (09:51)
[2018-05-21] MEDS ORDERED: HYDR-3812 PO (09:51)
[2018-05-21] MEDS ORDERED: CITA40TA11 PO (09:51)
[2018-05-21] MEDS ORDERED: TRAZ-189 PO (09:51)
[2018-05-21] MEDS ORDERED: OMG1KC PO (09:51)
[2018-05-21] MEDS ORDERED: METF-397 PO (09:51)
[2018-05-21] MEDS ORDERED: PHEN177S52 MM (09:51)
[2018-05-21] MEDS ORDERED: AZIT250T12 PO (09:51)
--- NOTE | 2018-05-21 10:00 | NUR ---
UPDATED MED REC WITH MAR FROM [facility]. SEVERAL CHANGES WERE MADE AND SOME OF THOSE CHANGES HAD ALREADY BEEN CONTINUED BY . I GAVE CORRECTIONS TO PHARMACIST FOR CLARIFICATION.
--- NOTE | 2018-05-21 10:07 | Progress Note-Hospitalist ---
Subjective HPI/CC On Admission Date Seen by Provider: May 21, 2018 Time Seen by Provider: 09:00 Subjective/Events-last exam Will order PT and OT. Pt resides in assisted living so will need to evaluate for return there or go to a longterm. Weaning off oxygen so he doesn't have to go home on oxygen. Will review home meds after they were corrected after admission this weekend. Pt has dementia and Parkinson's and overall has difficulty communicating. Review of Systems General: Fatigue Pulmonary: Cough Neurological: Confusion Focused Exam Lactate Level 05/20/18 11:21: Lactic Acid Level 2.42*H 05/20/18 13:41: Lactic Acid Level 4.77*H 05/20/18 17:49: Lactic Acid Level 1.35 Objective Exam Vital Signs Vital Signs Date Time Temp Pulse Resp B/P (MAP) Pulse Ox O2 Delivery O2 Flow Rate FiO2 05/21/18 19:35 98.2 71 20 134/68 (90) 95 Nasal Cannula 1.00 05/20/18 02:05 28 Capillary Refill : NONELess Than 3 Seconds General Appearance: No Apparent Distress, WD/WN Respiratory: No Accessory Muscle Use, No Respiratory Distress, Crackles, Decreased Breath Sounds, Wheezing Cardiovascular: Regular Rate, Rhythm, No Edema, No Gallop, No JVD, No Murmur, Normal Peripheral Pulses Neurologic/Psychiatric: Alert, Oriented x3, No Motor/Sensory Deficits, Normal Mood/Affect, Disoriented Results/Procedures Lab Laboratory Tests 05/21/18 06:05 Patient resulted labs reviewed. Assessment/Plan Assessment and Plan Assess & Plan/Chief Complaint (1) CAP (community acquired pneumonia) Status: Acute Assessment & Plan: - Azithromycin, MAT protocol (2) Hypoxia Status: Acute Assessment & Plan: - Titrate oxygen as tolerated (3) HTN (hypertension) Status: Acute Assessment & Plan: - Continue home meds Qualifiers: Qualified Codes: I10 - Essential (primary) hypertension (4) CVA (cerebral vascular accident) Status: Chronic (5) DVT prophylaxis Status: Acute Assessment & Plan: - Lovenox DC tomorrow Diagnosis/Problems Diagnosis/Problems (1) CAP (community acquired pneumonia) Status: Acute Qualifiers: Lung location: unspecified part of lung (2) CVA (cerebral vascular accident) Status: Chronic Qualifiers: CVA mechanism: unspecified Qualified Codes: I63.9 - Cerebral infarction, unspecified (3) HTN (hypertension) Status: Chronic Qualifiers: Hypertension type: essential hypertension Qualified Codes: I10 - Essential (primary) hypertension (4) DVT prophylaxis Status: Acute (5) Hypoxia Status: Acute (6) Dementia Status: Chronic Qualifiers: Dementia type: unspecified type (7) Aphasia Status: Chronic (8) Diabetes Status: Chronic Qualifiers: Diabetes mellitus type: type 2 Diabetes mellitus terminal worker insulin use: without terminal worker use Diabetes mellitus complication status: with unspecified complications Qualified Codes: 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 transplanted heart: [place] heart Associated angina: without angina Qualified Codes: I25.10 - Atherosclerotic heart disease of [place] coronary artery without angina pectoris Clinical Quality Measures DVT/VTE Risk/Contraindication: Risk Factor Score Per Nursin RFS Level Per Nursing on Admit: 4+=Very High MARYAM MANZO DO May 21, 2018 10:07
--- NOTE | 2018-05-21 11:42 | Physical Therapy Evaluation ---
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 Patient completes activity by themselves 4 Supervision or touching assist (CGA). [place] provide cues , steadying assist 3 The helper provides less than half the effort to complete the activity 2 The helper provides more than half the effort to complete the activity 1 Dependent. The helper does all the effort to complete an activity 7 Patient refused to complete or attempt activity 9 The patient did not perform the activity before the current illness or injury 88 Not attempted due to Medical conditions or safety concerns Functional Abilities and Goals: Independent: Patient completed the activities by him/herself, with or without an assistive device, with no assistance from a helper. Needed Some Help: Patient needed partial assistance from another person to complete activities. Dependent: A helper completed the activities for the patient. Unknown: Not Applicable: Bed Mobility: 5 Transfers (B,C,W/C) (FIM): 5 Gait: 5 Indoor Mobility (Ambulation): Needed Some Help Prior Devices Use: Walker PT Evaluation-Current Subjective Patient agrees to PT by nodding head. Pain Numeric Pain Scale: 0-No Pain Location: No Pain Reported Objective Patient Orientation: Confused Problem Solving: Poor Attachments: Oxygen ROM/Strength ROM Lower Extremities bilateral LE WFL Strength Lower Extremities bilateral LE WFL Integumentary/Posture Integumentary refer to nursing notes Bowel Incontinence: No Bladder Incontinence: No Posture slight kyphosis Neuromuscular (Tone, Coordination, Reflexes) grossly intact Sensory Vision: Functional Hearing: Impaired Sensation Right Lower Extremit: Impaired Sensation Left Lower Extremity: Impaired Transfers Therapy Code Descriptions/Definitions Functional [place] Measure: 0=Not Assessed/NA 4=Minimal Assistance 1=Total Assistance 5=Supervision or Setup 2=Maximal Assistance 6=Modified [place] 3=Moderate Assistance 7=Complete [place] Transfers (B, C, W/C) (FIM): 4 Scootin Rollin Supine to/from Sit: 5 Sit to/from Stand: 4 CGA for safety Gait Mode of Locomotion: Walk Anticipated Mode of Locomotion: Walk Gait (FIM): 4 Distance (FIM): 3=150 ft Distance: 350' Gait Level of Assist: 4 Gait Persons Needed: 1 Gait Assistive Device: FWW Comments/Gait Description CGA for safety Balance Sitting Static: Normal Sitting Dynamic: Normal Standing Static: Good Standing Dynamic: Good Assessment/Needs 88 y.o. male, will benefit from skilled PT to address functional strength and mobility to improve current LOF. Rehab Potential: Fair PT Welder Explosion Goals Custodial Goals PT Welder Explosion Goals Time Frame: May 30, 2018 Transfers (B,C,W/C) (FIM): 5 Gait (FIM): 5 Gait distance (FIM): 3=150 ft Distance: 350' Gait Level of Assist: 5 Gait Assistive Device: FWW PT Plan Problem List Problem List: Activity Tolerance, Safety Treatment/Plan Treatment Plan: Continue Plan of Care Treatment Plan: Bed Mobility, Education, Functional Activity Gamaliel, Functional Strength, Gait, Safety, Therapeutic Exercise, Transfers Treatment Duration: May 30, 2018 Frequency: 6 times per week Estimated Hrs Per Day: .25 hour per day Patient and/or Family Agrees t: Yes Discharge Recommendations Therapy D/C Recommendations: Assisted Placement, Snf (TCU/NH) Time/GCodes Time In: 1050 Time Out: 1100 Total Billed Treatment Time: 10 Total Billed Treatment 1 visit EVLow 10 min FORD QUAN PT May 21, 2018 11:42
[2018-05-21 12:00] VITALS: BP 106/56
--- NOTE | 2018-05-21 14:13 | Occupational Therapy Eval ---
OT Evaluation-General/PLF Medical Diagnosis Admission Date May 19, 2018 at 23:15 Medical Diagnosis: pneumonia/hypoxia Onset Date: May 19, 2018 Therapy Diagnosis Therapy Diagnosis: impaired ADLs and mobility Height/Weight Height (Feet): 5 Height (Inches): 9.00 Weight (Pounds): 205 Weight (Ounces): 1.0 Precautions Precautions/Isolations: Standard Precautions Safety Interventions: Bed Exit Alarm Referral Physician: Paula Referral Reason: Activity Tolerance, Self Care, Evaluation/Treatment, Strengthening/ROM Medical History Pertinent Medical History: CAD, CVA, DM, Dementia, HTN, [place] Social History Home: [facility] Entry Into Home: Level Entry ADL-Prior Level of Function Therapy Code Descriptions/Definitions Functional [place] Measure: 0=Not Assessed/NA 4=Minimal Assistance 1=Total Assistance 5=Supervision or Setup 2=Maximal Assistance 6=Modified [place] 3=Moderate Assistance 7=Complete [place] Therapy Quality Codes: 6 Independent with activity with or without an assistive device 5 Patient requires set up or clean up by helper. Patient completes activity by themselves 4 Supervision or touching assist (CGA). [place] provide cues , steadying assist 3 The helper provides less than half the effort to complete the activity 2 The helper provides more than half the effort to complete the activity 1 Dependent. The helper does all the effort to complete an activity 7 Patient refused to complete or attempt activity 9 The patient did not perform the activity before the current illness or injury 88 Not attempted due to Medical conditions or safety concerns Functional Abilities and Goals: Independent: Patient completed the activities by him/herself, with or without an assistive device, with no assistance from a helper. Needed Some Help: Patient needed partial assistance from another person to complete activities. Dependent: A helper completed the activities for the patient. Unknown: Not Applicable: Self Care: Independent OT Current Status Subjective pt reports no pain. pt agreed to OT evaluation session Appearance pt agreed to work with therapy. pt wearing O2 NC Mental Status/Objective Patient Orientation: Person Current Glasses/Contacts: Yes Hand Dominance: Right Upper Extremity Coordination decrease [facility] Mohsen UE ROM WFL Upper Extremity Sensation mohsen 4/5 MMT ADL-Treatment Therapy Code Descriptions/Definitions Functional [place] Measure: 0=Not Assessed/NA 4=Minimal Assistance 1=Total Assistance 5=Supervision or Setup 2=Maximal Assistance 6=Modified [place] 3=Moderate Assistance 7=Complete [place] Therapy Quality Codes: 6 Independent with activity with or without an assistive device 5 Patient requires set up or clean up by helper. Patient completes activity by themselves 4 Supervision or touching assist (CGA). [place] provide cues , steadying assist 3 The helper provides less than half the effort to complete the activity 2 The helper provides more than half the effort to complete the activity 1 Dependent. The helper does all the effort to complete an activity 7 Patient refused to complete or attempt activity 9 The patient did not perform the activity before the current illness or injury 88 Not attempted due to Medical conditions or safety concerns Grooming (FIM): 4 (CGA while standing for safety) Lower Body Dressing (FIM): 5 (mohsen socks sitting EOB) Toilet/Commode Transfer (FIM): 4 (CGA. noted 2 LOB corrected by therapist ) Education OT Patient Education: Correct positioning, Energy conservation, Safety issues Teaching Recipient: Patient Teaching Methods: Discussion Response to Teaching: Verbalize Understanding OT Short Term Goals Short Term Goals Grooming(FIM): 5 (standing at sink) Bathing(FIM): 5 Lower Body Dressing(FIM): 5 (with gathing clothing from closet ) Toileting(FIM): 5 Toilet/Commode Transfer(FIM): 5 1=Demonstrate adherence to instructed precautions during ADL tasks. 2=Patient will verbalize/demonstrate understanding of assistive devices/ modifications for ADL. 3=Patient will improve strength/tolerance for activity to enable patient to perform ADL's. OT Alf Goals Entertainment Agent Goals Grooming(FIM): 6 (standing at sink) Bathing(FIM): 6 Lower Body Dressing(FIM): 6 Toileting(FIM): 6 Toilet/Commode Transfer(FIM): 6 1=Demonstrate adherence to instructed precautions during ADL tasks. 2=Patient will verbalize/demonstrate understanding of assistive devices/ modifications for ADL. 3=Patient will improve strength/tolerance for activity to enable patient to perform ADL's. OT Education/Plan Problem List/Assessment Assessment: Decreased Activ Tolerance, Decreased Safety Aware, Decreased UE Strength, Impaired Coordination, Impaired Funct Balance, Impaired I ADL's 88 year old males presents to OT services secondary to dx of hypoxia chart review completed NSG stated pt may participate in OT evaluation session. Pt laying supine in bed upon OT arrival with HOB elevated to approx 50 degrees in no apparent distress. Pt agreed to OT evaluation session. Pt presents with functional limitations affecting areas of ADLS and functional transfers with deficits in: SOB with activity, decrease dyn standing balance, decrease safety awareness. Pt would benefit from OT services to address above mention deficits and to increase overall safety with functional transfers in sitting/ standing. pt will required supervision when d.c from hospital Discharge Recommendations Plan/Recommendations: Continue POC Therapy D/C Recommendations: [facility] Placement, Fdc (TCU/NH) Treatment Plan/Plan of Care Treatment,Training & Education: Yes Patient would benefit from OT for education, treatment and training to promote independence in ADL's, mobility, safety and/or upper extremity function for ADL' s. Plan of Care: ADL Retraining, Caregiver Training, Functional Mobility, UE Funct Exercise/Act Treatment Duration: Jun 04, 2018 Frequency: 5 times per week Estimated Hrs Per Day: .5 hour per day Agreement: Yes Rehab Potential: Fair Time/GCodes Start Time: 13:08 Stop Time: 13:28 Total Time Billed (hr/min): 20 Billed Treatment Time ISAI GORDILLO OT May 21, 2018 14:13
[2018-05-21 15:25] VITALS: BP 124/61
[2018-05-21 19:35] VITALS: BP 134/68
[2018-05-21] MEDS: cefTRIAXone FOR IV USE 1,000 MG in WATER (STERILE) FOR INJECTION 10 ML IV SCH (21:53)
[2018-05-21] MEDS: FINASTERIDE (PROSCAR) 5 MG TAB PO SCH (21:54)
[2018-05-22 00:48] VITALS: BP 143/68
[2018-05-22 04:21] VITALS: BP 162/69
[2018-05-22 06:14] LABS: BASOPHILS # (AUTO) 0.1 10^3/uL (0.0-0.1); BASOPHILS % (AUTO) 1 % (0-10); EOSINOPHILS # (AUTO) 0.2 10^3/uL (0.0-0.3); EOSINOPHILS % (AUTO) 2 % (0-10); HEMATOCRIT 38 % (40-54); HEMOGLOBIN 13.9 G/DL (13.3-17.7); LYMPHOCYTES # (AUTO) 2.9 X 10^3 (1.0-4.0); LYMPHOCYTES % (AUTO) 37 % (12-44); MEAN CORPUSCULAR HEMOGLOBIN 38 PG (25-34); MEAN CORPUSCULAR HGB CONC 37 G/DL (32-36); MEAN CORPUSCULAR VOLUME 104 FL (80-99); MEAN PLATELET VOLUME 9.4 FL (7.4-10.4); MONOCYTES # (AUTO) 0.8 X 10^3 (0.0-1.0); MONOCYTES % (AUTO) 10 % (0-12); NEUTROPHILS # (AUTO) 3.9 X 10^3 (1.8-7.8); NEUTROPHILS % (AUTO) 50 % (42-75); PLATELET COUNT 158 10^3/uL (130-400); RED CELL DISTRIBUTION WIDTH 13.5 % (10.0-14.5); WHITE BLOOD COUNT 7.8 10^3/uL (4.3-11.0)
[2018-05-22 06:56] LABS: ALANINE AMINOTRANSFERASE 21 U/L (0-55); ALBUMIN 3.6 GM/DL (3.2-4.5); ALKALINE PHOSPHATASE 56 U/L (40-136); BILIRUBIN,TOTAL 0.4 MG/DL (0.1-1.0); BUN/CREATININE RATIO 18; CALCIUM 8.4 MG/DL (8.5-10.1); CARBON DIOXIDE 25 MMOL/L (21-32); CHLORIDE 102 MMOL/L (98-107); CREATININE SERUM 0.76 MG/DL (0.60-1.30); GFR ESTIMATED > 60; GLUCOSE 204 MG/DL (70-105); POTASSIUM 4.5 MMOL/L (3.6-5.0); SODIUM 137 MMOL/L (135-145); TOTAL PROTEIN 6.3 GM/DL (6.4-8.2)
[2018-05-22] MEDS: RT-ALBUTEROL/IPRATROPIUM 3 ML (DUONEB) VIAL INH SCH ×2 (07:20→11:51)
[2018-05-22 08:00] VITALS: BP 141/66
[2018-05-22] MEDS: PHENYTOIN 100 MG (DILANTIN) CAP PO SCH (08:57)
[2018-05-22] MEDS: AZITHROMYCIN 250 MG TAB (ZITHROMAX) PO SCH (08:57)
--- NOTE | 2018-05-22 09:53 | Physical Therapy Daily Note ---
PT Daily Note-Current Subjective Patient is in bed and agrees to PT. Mental Status Patient Orientation: Person Attachments: Oxygen Transfers Therapy Code Descriptions/Definitions Functional [place] Measure: 0=Not Assessed/NA 4=Minimal Assistance 1=Total Assistance 5=Supervision or Setup 2=Maximal Assistance 6=Modified [place] 3=Moderate Assistance 7=Complete [place] Therapy Quality Codes: 6 Independent with activity with or without an assistive device 5 Patient requires set up or clean up by helper. Patient completes activity by themselves 4 Supervision or touching assist (CGA). [place] provide cues , steadying assist 3 The helper provides less than half the effort to complete the activity 2 The helper provides more than half the effort to complete the activity 1 Dependent. The helper does all the effort to complete an activity 7 Patient refused to complete or attempt activity 9 The patient did not perform the activity before the current illness or injury 88 Not attempted due to Medical conditions or safety concerns Transfers (B, C, W/C) (FIM): 5 Scootin Rollin Supine to/from Sit: 6 Sit to/from Stand: 5 Bed to/from Chair: 5 Gait Training Gait (FIM): 5 Distance (FIM): 3=150 ft Distance: 600' Gait Level of Assist: 5 Gait Assistive Device: FWW steady, functional gait sequence with SBA only for safety Exercises Supine Ex: Ankle pumps, Quad Set, Heel Slides Supine Reps: 15 Seated Therapy Exercises: Long arc quads Seated Reps: 20 Assessment Patient tolerated treatment well and is up in recliner with needs met. Patient is currently at SBA with all gross motor skills. PT Basketball Player Goals Care Home Goals PT Care Home Goals Time Frame: May 30, 2018 Transfers (B,C,W/C) (FIM): 5 Gait (FIM): 5 Gait distance (FIM): 3=150 ft Distance: 350' Gait Level of Assist: 5 Gait Assistive Device: FWW PT Plan Treatment/Plan Treatment Plan: Continue Plan of Care Treatment Plan: Bed Mobility, Education, Functional Activity Gamaliel, Functional Strength, Gait, Safety, Therapeutic Exercise, Transfers Treatment Duration: May 30, 2018 Frequency: 6 times per week Estimated Hrs Per Day: .25 hour per day Patient and/or Family Agrees t: Yes Time/GCodes Time In: 850 Time Out: 913 Total Billed Treatment Time: 23 Total Billed Treatment 1 visit FA x 2 23 min FORD QUAN PT May 22, 2018 09:52
[2018-05-22] MEDS ORDERED: CEFD300C3 PO (10:51)
--- NOTE | 2018-05-22 10:54 | D/C HH Face to Face Order ---
D/C Face to Face Orders Instructions for Patient Home Health Patient Instructions/FollowUp: [facility] 1 week Physician to follow Patient: [facility] Discharge Diet for Home: ADA Diet Patient Problems: Pneumonia Goals for Patient: Return to independent living Patient Data-Allergies,Ht & Wt Patient Allergies: Coded Allergies: dapagliflozin (Verified Allergy, Unknown, 11/22/17) donepezil (Verified Allergy, Unknown, 11/22/17) iodine (Verified Allergy, Unknown, 11/22/17) Height (Feet): 5 Height (Inches): 9.00 Weight (Pounds): 202 Weight (Ounces): 0.0 Home Health Need/Face to Face Date of Face to Face: May 22, 2018 Clinical Findings: Generalized weakness and fatigue, Muscle weakness, Shortness of breath, Unsteady gait I have seen Pt [id number]: Yes Discharged To: Home Diagnosis/Conditions: pneumonia Patient is Homebound due to: CognItive deficits, Shortness of breath/distress Homebound Status Due to the above stated illness, injury or surgical procedure (medical condition or diagnosis) and associated clinical findings, the patient is homebound because of his/her inability to leave home except with aid of a supportive device and/or person AND leaving the home requires a considerable and taxing effort or is medically contraindicated. Pt req the following assistanc: Walker Home Health Nursing Orders Home Health Services Order: Physical Therapy-Evaluate & Treat Home Health Infusion Therapy Line Start Date: May 21, 2018 Line Start Time: 2300 Line Type: Saline Lock Site Location: Antecubital Certify Stmt I certify that this patient is under my care and that I, a nurse practitioner or a physician; a lead recreation assistant working with me, had a face to face encounter that - meets the physician face to face encounter requirements with this patient as dated. MARYAM MANZO DO May 22, 2018 10:54
--- NOTE | 2018-05-22 10:55 | Discharge Summary-Hospitalist ---
Diagnosis/Chief Complaint Date of Admission May 19, 2018 at 23:15 Date of Discharge Discharge Date: May 22, 2018 Discharge Diagnosis (1) CAP (community acquired pneumonia) Status: Acute (2) CVA (cerebral vascular accident) Status: Chronic (3) HTN (hypertension) Status: Chronic (4) DVT prophylaxis Status: Acute (5) Hypoxia Status: Acute (6) Dementia Status: Chronic (7) Aphasia Status: Chronic (8) Diabetes Status: Chronic (9) Peripheral neuropathy Status: Chronic (10) CAD (coronary artery disease) Status: Chronic Discharge Summary Discharge Physical Exam Allergies: Coded Allergies: dapagliflozin (Verified Allergy, Unknown, 11/22/17) donepezil (Verified Allergy, Unknown, 11/22/17) iodine (Verified Allergy, Unknown, 11/22/17) Vitals & I&Os Vital Signs Date Time Temp Pulse Resp B/P (MAP) Pulse Ox O2 Delivery O2 Flow Rate FiO2 05/22/18 13:56 86 20 122/74 93 Nasal Cannula 1.00 05/22/18 12:00 98.3 05/20/18 02:05 28 General Appearance: No Apparent Distress, WD/WN, Chronically ill Respiratory: Chest Non Tender, Normal Breath Sounds, No Accessory Muscle Use, No Respiratory Distress, Decreased Breath Sounds, Wheezing Cardiovascular: Regular Rate, Rhythm, No Edema, No Gallop, No JVD, No Murmur, Normal Peripheral Pulses Neurologic/Psychiatric: Alert, Oriented x3, No Motor/Sensory Deficits, Normal Mood/Affect Hospital Course Was the Problem List Reviewed?: Yes Hospital course: Pt had a lengthy hospital course after he was admitted for B/L pneumonia and hypoxia. He does have a history of aphasia from prior stroke so difficulty communicating during entire hospital course which was chronic. He was able to be discharged on oral antibiotics to complete medical treatment and home oxygen evaluation was completed at time of discharge and he will go home on home health with PT. Labs (last 24 hrs) Laboratory Tests 05/22/18 05:41: White Blood Count 7.8, Red Blood Count 3.65L, Hemoglobin 13.9, Hematocrit 38L, Mean Corpuscular Volume 104H, Mean Corpuscular Hemoglobin 38H, Mean Corpuscular Hemoglobin Concent 37H, Red Cell Distribution Width 13.5, Platelet Count 158, Mean Platelet Volume 9.4, Neutrophils (%) (Auto) 50, Lymphocytes (%) (Auto) 37, Monocytes (%) (Auto) 10, Eosinophils (%) (Auto) 2, Basophils (%) (Auto) 1, Neutrophils # (Auto) 3.9, Lymphocytes # (Auto) 2.9, Monocytes # (Auto) 0.8, Eosinophils # (Auto) 0.2, Basophils # (Auto) 0.1, Sodium Level 137, Potassium Level 4.5, Chloride Level 102, Carbon Dioxide Level 25, Anion Gap 10, Blood Urea Nitrogen 14, Creatinine 0.76, Estimat Glomerular Filtration Rate > 60, BUN/ Creatinine Ratio 18, Glucose Level 204H, Calcium Level 8.4L, Corrected Calcium 8.7, Total Bilirubin 0.4, Aspartate Amino Transf (AST/SGOT) 23, Alanine Aminotransferase (ALT/SGPT) 21, Alkaline Phosphatase 56, Total Protein 6.3L, Albumin 3.6 Microbiology 05/19/18 Blood Culture - Preliminary, Resulted No growth 05/19/18 Influenza Types A,B Antigen (KELLEY) - Final, Complete 05/20/18 Urine Culture - Final, Complete 3 or more isolates Patient resulted labs reviewed. Pending Labs Discussion & Recommendations Discharge Planning: <30 minutes discharge planning Discharge Home Medications: Active Scripts Active Cefdinir 300 Mg Capsule 300 Mg PO BID Reported Ssd (Silver Sulfadiazine) 25 Gm Cream..g. TOP DAILY RIGHT ANKLE Sore Throat [place] (Phenol) 177 Ml [place] 1 [place] MM Q2H PRN Virtussin AC Liquid (Guaifenesin/Codeine Phosphate) 118 Ml Liquid 10 Ml PO Q6H PRN Hydrocodone-Acetamin 5-325 mg (Hydrocodone/Acetaminophen) 1 Each Tablet 1 Tab PO Q4H PRN Loratadine 10 Mg Tablet 10 Mg PO DAILY Refresh Tears (Carboxymethylcellulose Sodium) 15 Ml Drops 1 Drop OU TID Metformin HCl 500 Mg Tablet 500 Mg PO DAILY Mucinex (Guaifenesin) 600 Mg Tab.er.12h 600 Mg PO Q12H PRN Tramadol HCl 50 Mg Tablet 50 Mg PO Q6H PRN Miralax (Polyethylene Glycol 3350) 17 Gm Powd.pack 17 Gm PO DAILY Plavix (Clopidogrel Bisulfate) 75 Mg Tablet 75 Mg PO DAILY Trazodone HCl 50 Mg Tablet 150 Mg PO HS TAKES 3 (50MG) TABLETS Citalopram HBr (Citalopram Hydrobromide) 40 Mg Tablet 20 Mg PO HS TAKES 1/2 (40MG) TABLET Aspirin EC (Aspirin) 81 Mg Tablet.dr 81 Mg PO HS Fish Oil 1,000 mg Capsule ([place] 3 Polyunsat Fatty Acids) 1,000 Mg Cap 2,000 Mg PO BID Vitamin B12 (Cyanocobalamin (Vitamin B-12)) 2,500 Mcg Tablet 1,250 Mcg PO DAILY TAKES 1/2 OF A (2,500 MCG) TABLET Glyburide 5 Mg Tablet 5 Mg PO 0700,1630 Finasteride 5 Mg Tablet 5 Mg PO DAILY Simvastatin 40 Mg Tablet 20 Mg PO HS TAKES 1/2 OF A (40 MG) TABLET Doxazosin Mesylate 8 Mg Tablet 8 Mg PO HS Donepezil HCl 10 Mg Tablet 10 Mg PO HS Phenytoin Sodium Extended 100 Mg Capsule 200 Mg PO BID TAKES 2 (100 MG) CAPSULES Instructions to patient/family Please see electronic discharge instructions given to patient. Clinical Quality Measures DVT/VTE Risk/Contraindication: Risk Factor Score Per Nursin RFS Level Per Nursing on Admit: 4+=Very High Problem Qualifiers (1) CAP (community acquired pneumonia): Lung location: unspecified part of lung (2) CVA (cerebral vascular accident): CVA mechanism: unspecified Qualified Codes: I63.9 - Cerebral infarction, unspecified (3) HTN (hypertension): Hypertension type: essential hypertension Qualified Codes: I10 - Essential ( primary) hypertension (4) Dementia: Dementia type: unspecified type (5) Diabetes: Diabetes mellitus type: type 2 Diabetes mellitus mcc insulin use: without mcc use Diabetes mellitus complication status: with unspecified complications Qualified Codes: E11.8 - Type 2 diabetes mellitus with unspecified complications (6) Peripheral neuropathy: Peripheral neuropathy type: polyneuropathy, unspecified Qualified Codes: G62.9 - Polyneuropathy, unspecified (7) CAD (coronary artery disease): Coronary Disease-Associated Artery/Lesion type: [place] artery [place] vs. transplanted heart: [place] heart Associated angina: without angina Qualified Codes: I25.10 - Atherosclerotic heart disease of [place] coronary artery without angina pectoris MARYAM MANZO DO May 22, 2018 10:55
--- NOTE | 2018-05-22 11:20 | Occupational Ther Daily Note ---
OT Current Status-Daily Note Subjective pt sitting in recliner chair upon OT arrival in no apparent distress. pt agreed to OT TX session with focus on increasing independence with toileting. pt became frustrated with task requiring additional timing. pt c/o of 0/10 pain throughout session Mental Status/Objective Therapy Code Descriptions/Definitions Functional [place] Measure: 0=Not Assessed/NA 4=Minimal Assistance 1=Total Assistance 5=Supervision or Setup 2=Maximal Assistance 6=Modified [place] 3=Moderate Assistance 7=Complete [place] ADL-Treatment Toileting (FIM): 3 (pt demo ability to pull up/ down brief but requried total assist to perform hygiene. pt required encourgement to perform hygine task. pt became frustrated and through toilet paper on floor during activity. ) Toilet/Commode Transfer (FIM): 4 (CGA secodnary to safety/ balance. pt demo poor safety awareness during task. (to BSC) pt demo poor use of RW and required education for proper technique/ hand placment) Education OT Patient Education: Energy conservation, Modified ADL techniques, Progress toward Goal/Update tx plan, Safety issues, Transfer techniques Teaching Recipient: Patient Teaching Methods: Demonstration, Discussion Response to Teaching: Verbalize Understanding, Reinforcement Needed OT Short Term Goals Short Term Goals Grooming(FIM): 5 (standing at sink) Bathing(FIM): 5 Lower Body Dressing(FIM): 5 (with gathing clothing from closet ) Toileting(FIM): 5 Toilet/Commode Transfer(FIM): 5 1=Demonstrate adherence to instructed precautions during ADL tasks. 2=Patient will verbalize/demonstrate understanding of assistive devices/ modifications for ADL. 3=Patient will improve strength/tolerance for activity to enable patient to perform ADL's. OT Business Process Specialist Goals Mcc Goals Grooming(FIM): 6 (standing at sink) Bathing(FIM): 6 Lower Body Dressing(FIM): 6 Toileting(FIM): 6 Toilet/Commode Transfer(FIM): 6 1=Demonstrate adherence to instructed precautions during ADL tasks. 2=Patient will verbalize/demonstrate understanding of assistive devices/ modifications for ADL. 3=Patient will improve strength/tolerance for activity to enable patient to perform ADL's. OT Education/Plan Problem List/Assessment 88 year old males presents to OT services secondary to dx of hypoxia chart review completed NSG stated pt may participate in OT evaluation session. Pt laying supine in bed upon OT arrival with HOB elevated to approx 50 degrees in no apparent distress. Pt agreed to OT evaluation session. Pt presents with functional limitations affecting areas of ADLS and functional transfers with deficits in: SOB with activity, decrease dyn standing balance, decrease safety awareness. Pt would benefit from OT services to address above mention deficits and to increase overall safety with functional transfers in sitting/ standing. pt will required supervision when d.c from hospital Discharge Recommendations Plan/Recommendations: Continue POC Therapy D/C Recommendations: 24 hr Supervision, Half-Way (TCU/NH) Treatment Plan/Plan of Care Patient would benefit from OT for education, treatment and training to promote independence in ADL's, mobility, safety and/or upper extremity function for ADL' s. Plan of Care: ADL Retraining, Caregiver Training, Functional Mobility, UE Funct Exercise/Act Treatment Duration: Jun 04, 2018 Frequency: 5 times per week Estimated Hrs Per Day: .5 hour per day Agreement: Yes Rehab Potential: Fair Time/GCodes Start Time: 10:22 Stop Time: 10:52 Total Time Billed (hr/min): 30 Billed Treatment Time ADL 2 units, 30 minutes ISAI BENITEZ OT May 22, 2018 11:20
--- NOTE | 2018-05-22 11:55 | NUR ---
SPO2 DID NOT DROP BELOW 90% WITH EXERTION. Addendum: 05/22/18 at 1158 by CHRISSY CAST RT Amended: Links added.
[2018-05-22 12:00] VITALS: BP 122/74
[2018-05-22 13:56] VITALS: BP 122/74
--- NOTE | 2018-05-22 13:56 | NUR ---
MENDEL AGUERO demonstrates understanding of discharge instructions and accurately returns instructions upon questioning. Copy of Post-Discharge Instructions and Medication Discharge Instructions given to . MENDEL AGUERO is able to manage continuing needs after discharge. Patients belongings returned to patient. Skin dry and intact; no breakdown noted. Patient discharged from [facility] on 05/22/18 at 1356. MENDEL AGUERO left floor via wheelchair, accompanied by family and staff.
--- NOTE | 2018-05-22 14:24 | NUR ---
CM/SS, respond to referral. Patient discharge back to established residency with [facility] in [place]. Daughter Marita Graham will transport later this afternoon. Dicer Operator has updated [facility] staff Taty x 2 phone calls. Faxed final orders. [facility]: Coordinated with [facility] for PT at request of Marita by phone and with agreement from [facility]. [facility] PH: [phone] FX: [phone] RN/Bonnie
== END 2018-05-22 13:56 | disposition home health service (06) | DRG 195 ==
LOC: EDUNIT# 22:00 → ER 22:01 → 4TH 23:15
PROVIDERS: ADMIT Family Medicine; ATTEND Family Medicine
DX: J18.9 Pneumonia, unspecified organism (principal); R09.02 Hypoxemia; I69.320 Aphasia following cerebral infarction; I10 Essential (primary) hypertension; I25.10 Atherosclerotic heart disease of native coronary artery without angina pectoris; I25.2 Old myocardial infarction; E11.42 Type 2 diabetes mellitus with diabetic polyneuropathy; G20 Parkinson's disease; F02.80 Dementia in other diseases classified elsewhere, unspecified severity, without behavioral disturbance, psychotic disturbance, mood disturbance, and anxiety; E78.00 Pure hypercholesterolemia, unspecified; G50.0 Trigeminal neuralgia; N42.9 Disorder of prostate, unspecified; F32.9 Major depressive disorder, single episode, unspecified; Z95.5 Presence of coronary angioplasty implant and graft; Z87.891 Personal history of nicotine dependence; Z79.84 Long term (current) use of oral hypoglycemic drugs
CPT/HCPCS: 36415; 36600; 71045; 80053; 81000; 82805; 82962; 83605; 83735; 83880; 84484; 85025; 85610; 85730; 87040; 87088; 87804; 93005; 94640; 94760; 94761; 96361; 96374; 96375

== ENCOUNTER 2018-06-29 09:25 | Emergency (ER) | payer MEDICARE ==
[~2018-06-29] VITALS: Ht 172.7 cm; Wt 113.4 kg
[~2018-06-29 09:25] MED LIST changes: +ASPI-983 PO; +AZIT250T12 PO; +CARB15DR OU; +CEFD300C3 PO; +CITA40TA11 PO; +CLOP75TA69 PO; +GUAI-813 PO; +GUAI600T43 PO; +HYDR-3812 PO; +LORA10TA7 PO; +METF-397 PO; +OMG1KC PO; +PHEN177S52 MM; +POLY17PO6 PO; +SILV25CR21 TOP; +TRAM50TA2 PO; +TRAZ-189 PO
--- NOTE | 2018-06-29 11:10 | Diagnostic Imaging Report ---
INDICATION: Abdominal pain and constipation. TIME OF EXAM: 10:27 a.m. Correlation is made with prior study from 05/19/2018. Cardiac monitoring device overlies the left chest. The lungs are clear. There is no infiltrate or failure. There is no effusion. No free air is identified. Bowel gas pattern is nonobstructive. There is moderate stool throughout the colon suggestive of constipation. No pathologic calcifications are seen. IMPRESSION: Constipation. The study is otherwise unremarkable. Dictated by: Dictated on workstation # [id number]
[2018-06-29 11:40] LABS: CLARITY,URINE CLEAR; COLOR,URINE YELLOW; PH,URINE 8.5 (5-9)
[2018-06-29 11:41] LABS: BACTERIA,URINE NEGATIVE /HPF; BILIRUBIN,URINE NEGATIVE (NEGATIVE); GLUCOSE, URINE (UA) 1+ (NEGATIVE); KETONES,URINE NEGATIVE (NEGATIVE); LEUKOCYTE ESTERASE ,URINE NEGATIVE (NEGATIVE); NITRITE,URINE NEGATIVE (NEGATIVE); PROTEIN,URINE NEGATIVE (NEGATIVE); UROBILINOGEN,URINE 0.2 MG/DL (NORMAL); WBC,URINE RARE /HPF
[2018-06-29] MEDS ORDERED: FLEET ENEMA ADULT 1 EA BTL PR ONE (12:45)
--- NOTE | 2018-06-29 12:45 | ED Abdominal Pain ---
General Chief Complaint: Abdominal/GI Problems Stated Complaint: BOWEL CONSTIPATION; NAUSEA Nursing Triage Note: Pt arrived with family member with chief complaint of abdominal pain, constipation and possible fungal infection on right foot. [facility] Pt's daughter did not know much of what was going on and patient can't communicate well verbally, besides rubbing his stomach, so [facility] stated that the patient has been on miralax on and off for 1 month and on it for 5 days now. He is only having pebble stools and some liquid. They stated he has been shaking for 2-3 day and is uncomfortable/ told staff he wanted to get looked at. Dr. Rios told the [facility] to send him to ER to get evaluated. They also think the patient's right foot is a fungal infection, because they have been treating it with silvadene cream and it is still rough and would like for it to get looked at as well. They stated his vital signs were stable for them. Sepsis Screen: No Definite Risk Source of Information: Patient History of Present Illness Date Seen by Provider: June 29, 2018 Time Seen by Provider: 12:18 Initial Comments 88 yo M presents from [place] with his daughter. Pt has had a prior stroke so he has difficulty with communicating. The [place] reportedly has been trying to treat him with miralax for constipation but he is complaining of abdominal pain still and not having more than a few rabbit pellet sized stools. he also has a small red rash to the outside of his foot theya re applying silvadene to but it is not resolving. He was not having any vomiting but was not eating as well as usual. No fever or chills. No change in urination Allergies and Home Medications Allergies Coded Allergies: dapagliflozin (Verified Allergy, Unknown, 11/22/17) donepezil (Verified Allergy, Unknown, 11/22/17) iodine (Verified Allergy, Unknown, 11/22/17) Home Medications Aspirin 81 Mg Tablet., 81 MG PO HS, (Reported) Carboxymethylcellulose Sodium 15 Ml Drops, 1 DROP OU TID, (Reported) Cefdinir 300 Mg Capsule, 300 MG PO BID Prescribed by: MARYAM MANZO on 05/22/18 1051 Citalopram Hydrobromide 40 Mg Tablet, 20 MG PO HS, (Reported) TAKES 1/2 (40MG) TABLET Clopidogrel Bisulfate 75 Mg Tablet, 75 MG PO DAILY, (Reported) Clotrimazole 15 Gm Cream..g., 15 GM TP BID Apply thin layer to rash on foot twice a day for 10 days to treat fungal rash Prescribed by: THOMAS CISNEROS on 06/29/18 1406 Cyanocobalamin (Vitamin B-12) 2,500 Mcg Tablet, 1,250 MCG PO DAILY, (Reported) TAKES 1/2 OF A (2,500 MCG) TABLET Donepezil HCl 10 Mg Tablet, 10 MG PO HS, (Reported) Doxazosin Mesylate 8 Mg Tablet, 8 MG PO HS, (Reported) Finasteride 5 Mg Tablet, 5 MG PO DAILY, (Reported) Glyburide 5 Mg Tablet, 5 MG PO 0700,1630, (Reported) Guaifenesin 600 Mg Tab.er.12h, 600 MG PO Q12H PRN for URI, (Reported) Guaifenesin/Codeine Phosphate 118 Ml Liquid, 10 ML PO Q6H PRN for COUGH, (Reported) Hydrocodone/Acetaminophen 1 Each Tablet, 1 TAB PO Q4H PRN for PAIN-MODERATE, (Reported) Loratadine 10 Mg Tablet, 10 MG PO DAILY, (Reported) Metformin HCl 500 Mg Tablet, 500 MG PO DAILY, (Reported) [place] 3 Polyunsat Fatty Acids 1,000 Mg Cap, 2,000 MG PO BID, (Reported) Phenol 177 Ml [place], 1 SPRAY MM Q2H PRN for SORE THROAT, (Reported) Phenytoin Sodium Extended 100 Mg Capsule, 200 MG PO BID, (Reported) TAKES 2 (100 MG) CAPSULES Polyethylene Glycol 3350 17 Gm Powd.pack, 17 GM PO DAILY, (Reported) Silver Sulfadiazine 25 Gm Cream..g., TOP DAILY, (Reported) RIGHT ANKLE Simvastatin 40 Mg Tablet, 20 MG PO HS, (Reported) TAKES 1/2 OF A (40 MG) TABLET Tramadol HCl 50 Mg Tablet, 50 MG PO Q6H PRN for PAIN-MODERATE, (Reported) Trazodone HCl 50 Mg Tablet, 150 MG PO HS, (Reported) TAKES 3 (50MG) TABLETS Patient Home Medication List Home Medication List Reviewed: Yes Review of Systems Review of Systems Constitutional: No chills, No fever EENTM: No Symptoms Reported Respiratory: No Symptoms Reported Cardiovascular: No Symptoms Reported Gastrointestinal: See HPI Genitourinary: No Symptoms Reported Musculoskeletal: no symptoms reported Skin: no symptoms reported Psychiatric/Neurological: No Symptoms Reported Past Zrfgopr-Asaojv-Oeztye Hx Past Med/Social Hx: Reviewed Nursing Past Med/Soc Hx Patient Social History Alcohol Use: Denies Use Alcohol Beverage of Choice: [place], Wine Recreational Drug Use: No Smoking Status: Unknown if Ever Smoked Type Used: Cigarettes 2nd Hand Smoke Exposure: No Recent Foreign Travel: No Contact w/Someone Who Travel: No Recent Infectious Disease Expo: No Recent Hopitalizations: No Physical Abuse: No Sexual Abuse: No Mistreated: No Fear: No Immunizations Up To Date PED Vaccines UTD: Yes Date of Pneumonia Vaccine: Dec 15, 2015 Date of Influenza Vaccine: Nov 20, 2017 Seasonal Allergies Seasonal Allergies: No Past Medical History Surgeries: Yes (KNEE SCOPE; CARDIAC CATHS WITH STENT; LOOP RECORDER) Cardiac, Coronary Stent, Orthopedic Respiratory: No Chronic Bronchitis Currently Using CPAP: No Currently Using BIPAP: No Cardiac: Yes (CARDIAC CATH WITH STENT; LOOP RECORDER IN PLACE) Coronary Artery Disease, Heart Attack, High Cholesterol, Hypertension Neurological: Yes (CVA WITH APHASIA; TRIGEMINAL NEURALGIA) Neuropathy, Stroke, TIA Sexually Transmitted Disease: No HIV/AIDS: No Genitourinary: Yes Prostate Problems Gastrointestinal: No Musculoskeletal: Yes (KNEE SCOPE) Endocrine: Yes Diabetes, Non-Insulin dep HEENT: Yes Cataract Loss of Vision: Denies Hearing Impairment: Denies Cancer: No Psychosocial: Yes Depression Integumentary: No Blood Disorders: No Adverse Reaction/Blood Tranf: No Family Medical History Diabetes mellitus 19 MOTHER FH: congestive heart failure 19 MOTHER Headache disorder Hypertension 19 FATHER Myocardial infarction 19 FATHER No Pertinent Family Hx Physical Exam Vital Signs Vital Signs - First Documented 06/29/18 10:29 Temp 97.4 Pulse 58 Resp 24 B/P (MAP) 155/65 (95) Pulse Ox 97 O2 Delivery Room Air Capillary Refill : Less Than 3 Seconds Height/Weight/BMI Height: 5'8.00" Weight: 250lbs. 0oz. 113.628059ea; 29.6 BMI Method:Estimated General Appearance: WD/WN, no apparent distress HEENT: pharynx normal Neck: non-tender, supple Respiratory: chest non-tender, lungs clear Cardiovascular: normal peripheral pulses, regular rate, rhythm Gastrointestinal: soft, no pulsatile mass, abnormal bowel sounds (hypoactive bowel sounds); No rebound; tenderness (mild diffuse tenderness) Genital/Rectal: normal rectal exam, normal rectal tone, other (No fecal impaction palpated with my finger but he was so tensed up that I could not remov e any stool with my finger either) Neurologic/Psychiatric: alert Skin: normal color, warm/dry, rash (erythematous lacy rash on lateral portion of right foot by heel) Progress/Results/Core Measures Results/Orders Lab Results Laboratory Tests Test 06/29/18 10:25 Range/Units Urine Color YELLOW Urine Clarity CLEAR Urine pH 8.5 5-9 Urine Specific [place] 1.010 L 1.016-1.022 Urine Protein NEGATIVE NEGATIVE Urine Glucose (UA) 1+ H NEGATIVE Urine Ketones NEGATIVE NEGATIVE Urine Nitrite NEGATIVE NEGATIVE Urine Bilirubin NEGATIVE NEGATIVE Urine Urobilinogen 0.2 NORMAL MG/DL Urine Leukocyte Esterase NEGATIVE NEGATIVE Urine RBC (Auto) NEGATIVE NEGATIVE Urine RBC NONE /HPF Urine WBC RARE /HPF Urine Squamous Epithelial Cells 5-10 /HPF Urine Crystals NONE /LPF Urine Bacteria NEGATIVE /HPF Urine Casts NONE /LPF Urine Mucus NEGATIVE /LPF Urine Culture Indicated NO My Orders Orders - THOMAS CISNEROS MD Acute Abd Series (06/29/18 10:23) Ua Culture If Indicated (06/29/18 11:23) Na Phos/Na Biphos Enema (Fleet Enema [place] (06/29/18 12:45) Medications Given in ED Vital Signs/I&O 06/29/18 06/29/18 10:29 14:20 Temp 97.4 97.5 Pulse 58 72 Resp 24 20 B/P (MAP) 155/65 (95) 135/71 (92) Pulse Ox 97 96 O2 Delivery Room Air Room Air Blood Pressure Mean: 95 Progress Progress Note #1: Progress Note acute abdomen xray does show constipation and increased stool but no perforation or free air and no obstruction seen on films. No impaction felt or able to be removed by ROSENDA so will try a fleet's enema and see if that helps him have a BM and relieve his abdominal pain Progress Note #2: Progress Note He had good results with enema and was feeling better. discharge back to [place] and advised to use miralax daily. use clotrimazole on rash on his foot. Diagnostic Imaging Diagonstic Imaging: Xray Plain Films/CT/US/NM/MRI: abdomen Comments NAME: MENDEL AGUERO [facility] REC#: [id number] PT STATUS: REG ER : 1930 PHYSICIAN: THOMAS CISNEROS MD ADMIT DATE: 06/29/18/ER FS Signed Date of Exam:06/29/18 ACUTE ABD SERIES INDICATION: Abdominal pain and constipation. TIME OF EXAM: 10:27 a.m. Correlation is made with prior study from 05/19/2018. Cardiac monitoring device overlies the left chest. The lungs are clear. There is no infiltrate or failure. There is no effusion. No free air is identified. Bowel gas pattern is nonobstructive. There is moderate stool throughout the colon suggestive of constipation. No pathologic calcifications are seen. IMPRESSION: Constipation. The study is otherwise unremarkable. Dictated by: Dictated on workstation # [id number] Dict: 06/29/18 1105 Trans: 06/29/18 1522 [facility] [id number] Interpreted by: EZEQUIEL HUNT MD Electronically signed by: EZEQUIEL HUNT MD 06/29/18 1522 Departure Impression Primary Impression: Constipation Qualified Codes: K59.00 - Constipation, unspecified Additional Impression: Tinea corporis Disposition: HOME, SELF-CARE Condition: Stable Departure-Patient Inst. Decision time for Depature: 13:48 Referrals: JOSÉ MIGUEL RIOS MD (PCP/Family) Primary Care Physician Patient Instructions: Constipation, Adult (DC) Add. Discharge Instructions: Stay well hydrated and follow up with Dr. Rios. Drink more water to help with the constipation Resume all prior medicines and orders. Take Miralax on a daily basis to help with constipation. All discharge instructions reviewed with patient and/or family. Voiced understanding. Scripts Clotrimazole (Clotrimazole) 15 Gm Cream..g. 15 GM TP BID for fungal rash for 10 Days, #1 TUBE 0 Refills Apply thin layer to rash on foot twice a day for 10 days to treat fungal rash Prov: THOMAS CISNEROS MD 06/29/18 THOMAS CISNEROS MD June 29, 2018 12:45
[2018-06-29] MEDS ORDERED: CLOT15CR5 TP (14:06)
[2018-06-29 14:20] VITALS: BP 135/71
== END 2018-06-29 14:20 | disposition home or self-care (01) ==
LOC: EDUNIT# 09:25 → ER FS 09:26
DX: K59.00 Constipation, unspecified (principal); B35.4 Tinea corporis; I25.10 Atherosclerotic heart disease of native coronary artery without angina pectoris; I25.2 Old myocardial infarction; E78.00 Pure hypercholesterolemia, unspecified; I10 Essential (primary) hypertension; E11.40 Type 2 diabetes mellitus with diabetic neuropathy, unspecified; F32.9 Major depressive disorder, single episode, unspecified; Z86.73 Personal history of transient ischemic attack (TIA), and cerebral infarction without residual deficits; Z91.041 Radiographic dye allergy status; Z88.8 Allergy status to other drugs, medicaments and biological substances; Z82.49 Family history of ischemic heart disease and other diseases of the circulatory system; Z79.82 Long term (current) use of aspirin; Z79.02 Long term (current) use of antithrombotics/antiplatelets; Z79.4 Long term (current) use of insulin; Z95.5 Presence of coronary angioplasty implant and graft; Z98.890 Other specified postprocedural states; Z87.09 Personal history of other diseases of the respiratory system
CPT/HCPCS: 74022; 81000

== ENCOUNTER → 2018-07-07 | Outpatient (CLI) | payer MEDICARE ==
[~2018-07-07] MED LIST changes: +CLOT15CR5 TP; +FLUO10CA29 PO; +FLUO20CA42 PO; -TRAZ-189 PO; +TRAZ-222 PO
[2018-07-07 14:57] LABS: CLARITY,URINE CLEAR; COLOR,URINE YELLOW; GLUCOSE, URINE (UA) TRACE (NEGATIVE); KETONES,URINE NEGATIVE (NEGATIVE); NITRITE,URINE NEGATIVE (NEGATIVE); PROTEIN,URINE NEGATIVE (NEGATIVE)
[2018-07-07 14:58] LABS: BACTERIA,URINE NEGATIVE /HPF; BILIRUBIN,URINE NEGATIVE (NEGATIVE); LEUKOCYTE ESTERASE ,URINE NEGATIVE (NEGATIVE); SQUAMOUS EPITHELIAL CELL,UR 0-2 /HPF; UROBILINOGEN,URINE 0.2 MG/DL (NORMAL)
== END ==
LOC: LAB FS 14:39
PROVIDERS: ATTEND Family Medicine
DX: R35.0 Frequency of micturition (principal)
CPT/HCPCS: 81000

== ENCOUNTER 2018-07-10 17:34 | Emergency (ER) | payer MEDICARE ==
[~2018-07-10] VITALS: Ht 172.7 cm; Wt 113.4 kg
[~2018-07-10 17:34] MED LIST changes: -FLUO10CA29 PO; -FLUO20CA42 PO
[2018-07-10] MEDS ORDERED: fentaNYL INJECTION 100 MCG/2 ML AMP IVP ONE (18:30)
--- NOTE | 2018-07-10 18:38 | ED Integumentary General ---
General Chief Complaint: General Problems/Pain Stated Complaint: STROKE SYMPTOMS Source: patient, family Exam Limitations: clinical condition (post CVA dysphasia) History of Present Illness Date Seen by Provider: July 10, 2018 Time Seen by Provider: 18:22 Initial Comments Pt to ER from group home with 3-4 days increased weakness, shaking, difficulty ambulating with walker. He has a previous stroke with deficits walking and cannot verbally express himself. He nods his head and gestures. His daughter indicates that recently he developed a pressure ulcer in the gluteal cleft and is having significant pain. He indicates 10/10 pain. He becomes frustrated and has a tremor associated with his inability to express himself adequately. After an exhaustive ROS he hits upon no weakness but pos for numbness/tingling in the left arm down to the hand. He denies the symptoms are similar to previous stroke. No CP, SOA, N/V, Const, Diarrhea, abd pain, indigestion, RETANA, visual dis turbances, dysuria, etc. He is on dual antiplatelet but not a blood thinner. History of 2 falls last week per staff and CBG 140. Allergies and Home Medications Allergies Coded Allergies: dapagliflozin (Verified Allergy, Unknown, 11/22/17) donepezil (Verified Allergy, Unknown, 11/22/17) iodine (Verified Allergy, Unknown, 11/22/17) Home Medications Aspirin 81 Mg Tablet.dr, 81 MG PO HS, (Reported) Carboxymethylcellulose Sodium 15 Ml Drops, 1 DROP OU TID, (Reported) Cefdinir 300 Mg Capsule, 300 MG PO BID Prescribed by: MARYAM MANZO on 05/22/18 1051 Citalopram Hydrobromide 40 Mg Tablet, 20 MG PO HS, (Reported) TAKES 1/2 (40MG) TABLET Clopidogrel Bisulfate 75 Mg Tablet, 75 MG PO DAILY, (Reported) Clotrimazole 15 Gm Cream..g., 15 GM TP BID Apply thin layer to rash on foot twice a day for 10 days to treat fungal rash Prescribed by: THOMAS CISNEROS on 06/29/18 1406 Cyanocobalamin (Vitamin B-12) 2,500 Mcg Tablet, 1,250 MCG PO DAILY, (Reported) TAKES 1/2 OF A (2,500 MCG) TABLET Donepezil HCl 10 Mg Tablet, 10 MG PO HS, (Reported) Doxazosin Mesylate 8 Mg Tablet, 8 MG PO HS, (Reported) Finasteride 5 Mg Tablet, 5 MG PO DAILY, (Reported) Glyburide 5 Mg Tablet, 5 MG PO 0700,1630, (Reported) Guaifenesin 600 Mg Tab.er.12h, 600 MG PO Q12H PRN for URI, (Reported) Guaifenesin/Codeine Phosphate 118 Ml Liquid, 10 ML PO Q6H PRN for COUGH, (Reported) Hydrocodone/Acetaminophen 1 Each Tablet, 1 TAB PO Q4H PRN for PAIN-MODERATE, (Reported) Loratadine 10 Mg Tablet, 10 MG PO DAILY, (Reported) Metformin HCl 500 Mg Tablet, 500 MG PO DAILY, (Reported) [place] 3 Polyunsat Fatty Acids 1,000 Mg Cap, 2,000 MG PO BID, (Reported) Phenol 177 Ml [place], 1 SPRAY MM Q2H PRN for SORE THROAT, (Reported) Phenytoin Sodium Extended 100 Mg Capsule, 200 MG PO BID, (Reported) TAKES 2 (100 MG) CAPSULES Polyethylene Glycol 3350 17 Gm Powd.pack, 17 GM PO DAILY, (Reported) Silver Sulfadiazine 25 Gm Cream..g., TOP DAILY, (Reported) RIGHT ANKLE Simvastatin 40 Mg Tablet, 20 MG PO HS, (Reported) TAKES 1/2 OF A (40 MG) TABLET Tramadol HCl 50 Mg Tablet, 50 MG PO Q6H PRN for PAIN-MODERATE, (Reported) Trazodone HCl 50 Mg Tablet, 150 MG PO HS, (Reported) TAKES 3 (50MG) TABLETS Patient Home Medication List Home Medication List Reviewed: Yes Review of Systems Review of Systems Constitutional: No chills, No diaphoresis EENTM: No ear discharge, No ear pain, No eye pain, No vision loss, No mouth pain, No nose congestion, No nose pain, No throat pain Respiratory: No cough, No short of breath Cardiovascular: No chest pain, No edema Gastrointestinal: No abdominal pain, No constipation, No diarrhea, No heartburn, No loss of appetite, No nausea, No vomiting Genitourinary: No discharge, No dysuria Musculoskeletal: No back pain, No joint pain Skin: see HPI Psychiatric/Neurological: Numbness (LUE), Tremors Past Qewcyoq-Uhrcnv-Gudkmn Hx Patient Social History Alcohol Use: Regular Use Alcohol Beverage of Choice: [place], Wine Recreational Drug Use: No Smoking Status: Current Everyday Smoker Type Used: Cigarettes 2nd Hand Smoke Exposure: No Recent Foreign Travel: No Contact w/Someone Who Travel: No Recent Hopitalizations: No Immunizations Up To Date PED Vaccines UTD: Yes Date of Pneumonia Vaccine: Dec 15, 2015 Date of Influenza Vaccine: Nov 20, 2017 Seasonal Allergies Seasonal Allergies: No Past Medical History Surgeries: Yes (KNEE SCOPE; CARDIAC CATHS WITH STENT; LOOP RECORDER) Cardiac, Coronary Stent, Orthopedic Respiratory: No Chronic Bronchitis Currently Using CPAP: No Currently Using BIPAP: No Cardiac: Yes (CARDIAC CATH WITH STENT; LOOP RECORDER IN PLACE) Coronary Artery Disease, Heart Attack, High Cholesterol, Hypertension Neurological: Yes (CVA WITH APHASIA; TRIGEMINAL NEURALGIA) Neuropathy, Stroke, TIA Sexually Transmitted Disease: No HIV/AIDS: No Genitourinary: Yes Prostate Problems Gastrointestinal: No Musculoskeletal: Yes (KNEE SCOPE) Endocrine: Yes Diabetes, Non-Insulin dep HEENT: Yes Cataract Loss of Vision: Denies Hearing Impairment: Denies Cancer: No Psychosocial: Yes Depression Integumentary: No Blood Disorders: No Adverse Reaction/Blood Tranf: No Family Medical History Diabetes mellitus 19 MOTHER FH: congestive heart failure 19 MOTHER Headache disorder Hypertension 19 FATHER Myocardial infarction 19 FATHER No Pertinent Family Hx Physical Exam Vital Signs Capillary Refill : General Appearance: WD/WN, mild distress HEENT: PERRL/EOMI, normal ENT inspection, TMs normal, pharynx normal Neck: full range of motion, normal inspection Cardiovascular: normal peripheral pulses, regular rate, rhythm, other (1+ pedal cas edema) Respiratory: chest non-tender, lungs clear, normal breath sounds, no respiratory distress, no accessory muscle use Gastrointestinal: normal bowel sounds, non tender, soft 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 ) Skin: normal color, warm/dry, other (stage I PU in gluteal cleft 6x10 cm with some fissure/breakdown with a rubbery duoform type dressing and white cream. ) Progress/Results/Core Measures Results/Orders Lab Results Laboratory Tests Test 07/10/18 18:49 07/10/18 18:52 Range/Units Urine Color YELLOW Urine Clarity CLEAR Urine pH 8.0 5-9 Urine Specific [place] 1.010 L 1.016-1.022 Urine Protein NEGATIVE NEGATIVE Urine Glucose (UA) NEGATIVE NEGATIVE Urine Ketones NEGATIVE NEGATIVE Urine Nitrite NEGATIVE NEGATIVE Urine Bilirubin NEGATIVE NEGATIVE Urine Urobilinogen 0.2 NORMAL MG/DL Urine Leukocyte Esterase NEGATIVE NEGATIVE Urine RBC (Auto) NEGATIVE NEGATIVE Urine RBC NONE /HPF Urine WBC 0-2 /HPF Urine Squamous Epithelial Cells NONE /HPF Urine Crystals NONE /LPF Urine Bacteria TRACE /HPF Urine Casts NONE /LPF Urine Mucus NONE /LPF Urine Culture Indicated NO White Blood Count 7.9 4.3-11.0 10^3/uL Red Blood Count 3.61 L 4.35-5.85 10^6/uL Hemoglobin 13.6 13.3-17.7 G/DL Hematocrit 37 L 40-54 % Mean Corpuscular Volume 101 H 80-99 FL Mean Corpuscular Hemoglobin 38 H 25-34 PG Mean Corpuscular Hemoglobin Concent 37 H 32-36 G/DL Red Cell Distribution Width 11.7 10.0-14.5 % Platelet Count 179 130-400 10^3/uL Mean Platelet Volume 9.0 7.4-10.4 FL Neutrophils (%) (Auto) 39 L 42-75 % Lymphocytes (%) (Auto) 46 H 12-44 % Monocytes (%) (Auto) 10 0-12 % Eosinophils (%) (Auto) 3 0-10 % Basophils (%) (Auto) 1 0-10 % Neutrophils # (Auto) 3.1 1.8-7.8 X 10^3 Lymphocytes # (Auto) 3.6 1.0-4.0 X 10^3 Monocytes # (Auto) 0.8 0.0-1.0 X 10^3 Eosinophils # (Auto) 0.3 0.0-0.3 10^3/uL Basophils # (Auto) 0.1 0.0-0.1 10^3/uL Prothrombin Time 14.1 12.2-14.7 SEC INR Comment 1.1 0.8-1.4 Activated Partial Thromboplast Time 25 24-35 SEC Sodium Level 137 135-145 MMOL/L Potassium Level 3.4 L 3.6-5.0 MMOL/L Chloride Level 99 98-107 MMOL/L Carbon Dioxide Level 25 21-32 MMOL/L Anion Gap 13 5-14 MMOL/L Blood Urea Nitrogen 10 7-18 MG/DL Creatinine 0.67 0.60-1.30 MG/DL Estimat Glomerular Filtration Rate > 60 BUN/Creatinine Ratio 15 Glucose Level 121 H 70-105 MG/DL Calcium Level 8.5 8.5-10.1 MG/DL Corrected Calcium 8.6 8.5-10.1 MG/DL Total Bilirubin 0.7 0.1-1.0 MG/DL Aspartate Amino Transf (AST/SGOT) 21 5-34 U/L Alanine Aminotransferase (ALT/SGPT) 21 0-55 U/L Alkaline Phosphatase 57 40-136 U/L Troponin T 10 <=15 NG/L Pro-B-Type Natriuretic Peptide 60.2 <75.0 PG/ML Total Protein 6.6 6.4-8.2 GM/DL Albumin 3.9 3.2-4.5 GM/DL My Orders Orders - JEREMIAS BERKOWITZ Cbc With Automated Diff (07/10/18 18:26) Comprehensive Metabolic Panel (07/10/18 18:26) Protime With Inr (07/10/18 18:26) Partial Thromboplastin Time (07/10/18 18:26) Ua Culture If Indicated (07/10/18 18:26) Troponin T (07/10/18 18:26) Probnp Fs (07/10/18 18:26) Chest 1 View Ap/Pa Only (07/10/18 18:26) Shoulder 3 View Left (07/10/18 18:26) Ct Head/Cervical Spine Wo (07/10/18 18:26) Ekg Tracing (07/10/18 18:26) Continuous Ekg Monitoring (07/10/18 18:26) Fentanyl Injection (Sublimaze Injection (07/10/18 18:30) Hydrocodone/Apap 5/325 Tablet (Lortab 5 (07/10/18 19:45) Medications Given in ED Current Medications Medications Dose Ordered Sig/Taqueria Route Start Time Stop Time Status Last Admin Dose Admin Fentanyl Citrate 75 mcg ONCE ONCE IVP 07/10/18 18:30 07/10/18 18:31 DC 07/10/18 19:02 75 MCG Progress Progress Note #1: Time: 18:44 Progress Note Will clean and dress the gluteal cleft wound appropriately. If he is using a debriding cream on the PU then we would recommend to stop that. Fentanyl 75mcg for pain. EKG and CT head, chest and left shoulder plain films. Parasthesia from new CVA? intracranial bleed, fall related or atypical CAD? Progress Note #2: Time: 20:37 Progress Note After a thorough workup of labs, urine, imaging will find any evidence of infection, heart attack, stroke or intracranial hemorrhage. We've discussed this with him and he says that he is ready to go on home. I discussed with family and the patient has quite a bit of anxiety at baseline with panic attacks and I suspect that maybe the tingling he is feeling in his arms and hands which have since resolved are more related to panic attack. He was put on Prozac as well as trazodone for insomnia. We could probably increase his Prozac to 30 mg and have him follow-up in one to 2 weeks with primary care if that helps with his anxiety. He drinks alcohol so using Ativan is probably not a very good option. Initial ECG Impression Date: July 10, 2018 Initial ECG Impression Time: 18:39 Initial ECG Rate: 58 Initial ECG Rhythm: Normal Sinus Initial ECG Intervals: CA (230) Initial ECG Impression: Normal, Nonspecific Changes Comment Right bundle-branch block. No clinically significant ST elevation or depression. Diagnostic Imaging Diagonstic Imaging: Xray Plain Films/CT/US/NM/MRI: chest (1v) Comments NAME: MENDEL AGUERO [facility] REC#: [id number] PT STATUS: REG ER : 1930 PHYSICIAN: JEREMIAS BERKOWITZ MD ADMIT DATE: 07/10/18/ER FS Signed Date of Exam:07/10/18 CT HEAD/CERVICAL SPINE WO PROCEDURE: CT head and CT cervical spine without contrast. TECHNIQUE: Multiple contiguous axial images were obtained through the brain and cervical spine without the use of intravenous contrast. Sagittal and coronal reformations through the cervical spine were then performed. Auto Exposure Controls were utilized during the CT exam to meet ALARA standards for radiation dose reduction. INDICATION: Stroke symptoms and ectasia. COMPARISON: 05/03/2016. FINDINGS: There is prominence of the ventricles and sulci. There is moderate chronic microvascular ischemic disease. There is no hydrocephalus. There is no midline shift. There is no intracranial mass, hemorrhage or extra-axial fluid collection. There is an unchanged benign-appearing calcification in the right frontal lobe. There is extensive calcification along the frontal falx. The calvarium is intact. Sinuses and mastoid air cells are clear. There is straightening of the normal cervical lordosis. There is slight anterolisthesis of C3 on C4 and C4 on C5 which appears to be on a degenerative basis. There is degenerative disc disease at C4-5, C5-6 and C6-7. There is no fracture or traumatic subluxation. The odontoid is intact. The lateral masses are well-aligned. There is marked posterior facet arthropathy. Pre-vertebral soft tissues are within normal limits. The lung apices are clear. IMPRESSION: 1. Atrophy and chronic microvascular ischemic disease however no other acute intracranial abnormality. 2. Moderate cervical spondylosis and degenerative disc disease without acute fracture or traumatic subluxation. Dictated by: Dictated on workstation # [id number] Dict: 07/10/181933 Trans: 07/10/182013 [facility] [id number] Interpreted by: SHERIE ELAM MD Electronically signed by: SHERIE ELAM MD 07/10/182013 Reviewed: Reviewed by [facility] Diagonstic Imaging: Xray Plain Films/CT/US/NM/MRI: other (Left Shoulder) Comments Osteopenia and some degenerative changes however no acute fracture or dislocation. Reviewed: Reviewed by [facility] Diagonstic Imaging: CT (noncontrast) Plain Films/CT/US/NM/MRI: c-spine, head Comments NAME: MENDEL AGUERO [facility] REC#: [id number] PT STATUS: REG ER : 1930 PHYSICIAN: JEREMIAS BERKOWITZ MD ADMIT DATE: 07/10/18/ER FS Signed Date of Exam:07/10/18 CT HEAD/CERVICAL SPINE WO PROCEDURE: CT head and CT cervical spine without contrast. TECHNIQUE: Multiple contiguous axial images were obtained through the brain and cervical spine without the use of intravenous contrast. Sagittal and coronal reformations through the cervical spine were then performed. Auto Exposure Controls were utilized during the CT exam to meet ALARA standards for radiation dose reduction. INDICATION: Stroke symptoms and ectasia. COMPARISON: 05/03/2016. FINDINGS: There is prominence of the ventricles and sulci. There is moderate chronic microvascular ischemic disease. There is no hydrocephalus. There is no midline shift. There is no intracranial mass, hemorrhage or extra-axial fluid collection. There is an unchanged benign-appearing calcification in the right frontal lobe. There is extensive calcification along the frontal falx. The calvarium is intact. Sinuses and mastoid air cells are clear. There is straightening of the normal cervical lordosis. There is slight anterolisthesis of C3 on C4 and C4 on C5 which appears to be on a degenerative basis. There is degenerative disc disease at C4-5, C5-6 and C6-7. There is no fracture or traumatic subluxation. The odontoid is intact. The lateral masses are well-aligned. There is marked posterior facet arthropathy. Pre-vertebral soft tissues are within normal limits. The lung apices are clear. IMPRESSION: 1. Atrophy and chronic microvascular ischemic disease however no other acute intracranial abnormality. 2. Moderate cervical spondylosis and degenerative disc disease without acute fracture or traumatic subluxation. Dictated by: Dictated on workstation # [id number] Dict: 07/10/18 1934 Trans: 07/10/182013 [facility] [phone] Interpreted by: SHERIE ELAM MD Electronically signed by: SHERIE ELAM MD 07/10/182013 Reviewed: Reviewed by Me Departure Impression Primary Impression: Anxiety Additional Impressions: Panic attack Paresthesia of upper extremity Pressure ulcer of coccygeal region, stage 2 Disposition: 01 HOME, SELF-CARE Condition: Stable Departure-Patient Inst. Decision time for Depature: 20:39 Referrals: SELFJOSÉ MIGUEL MD (PCP/Family) Primary Care Physician Patient Instructions: Panic Disorder (DC), Pressure Sores Add. Discharge Instructions: Increase the Prozac to 30 mg at bedtime. Follow-up 1-2 weeks with primary care. Discuss whether the medication change helped. Reexamine the wound over the coccyx. Keep the skin clean with regular soap and water and dried thoroughly in the gluteal cleft. Apply a thin layer of vitamin A D ointment or other skin barriers cream with the zinc. Do not use silver sulfadiazine or similar debriding creams. All discharge instructions reviewed with patient and/or family. Voiced understanding. Scripts Fluoxetine HCl (Prozac) 20 Mg Capsule 20 MG PO HS for 14 Days, #14 CAP 0 Refills Prov: JEREMIAS BERKOWITZ 07/10/18 Fluoxetine HCl (Prozac) 10 Mg Capsule 10 MG PO HS for 14 Days, #14 CAP 0 Refills Prov: JEREMIAS BERKOWITZ 07/10/18 Copy Copies To 1: SELF,JEREMIAS CURIEL MD July 10, 2018 18:37
[2018-07-10 19:03] LABS: HEMATOCRIT 37 % (40-54); HEMOGLOBIN 13.6 G/DL (13.3-17.7); MEAN CORPUSCULAR HEMOGLOBIN 38 PG (25-34); MEAN CORPUSCULAR VOLUME 101 FL (80-99); WHITE BLOOD COUNT 7.9 10^3/uL (4.3-11.0)
[2018-07-10 19:04] LABS: MEAN CORPUSCULAR HGB CONC 37 G/DL (32-36); PLATELET COUNT 179 10^3/uL (130-400); RED CELL DISTRIBUTION WIDTH 11.7 % (10.0-14.5)
[2018-07-10 19:05] LABS: BASOPHILS # (AUTO) 0.1 10^3/uL (0.0-0.1); BASOPHILS % (AUTO) 1 % (0-10); EOSINOPHILS # (AUTO) 0.3 10^3/uL (0.0-0.3); EOSINOPHILS % (AUTO) 3 % (0-10); LYMPHOCYTES # (AUTO) 3.6 X 10^3 (1.0-4.0); LYMPHOCYTES % (AUTO) 46 % (12-44); MONOCYTES # (AUTO) 0.8 X 10^3 (0.0-1.0); MONOCYTES % (AUTO) 10 % (0-12); NEUTROPHILS # (AUTO) 3.1 X 10^3 (1.8-7.8); NEUTROPHILS % (AUTO) 39 % (42-75)
[2018-07-10 19:09] LABS: CLARITY,URINE CLEAR; COLOR,URINE YELLOW
[2018-07-10 19:10] LABS: BACTERIA,URINE TRACE /HPF; BILIRUBIN,URINE NEGATIVE (NEGATIVE); GLUCOSE, URINE (UA) NEGATIVE (NEGATIVE); KETONES,URINE NEGATIVE (NEGATIVE); LEUKOCYTE ESTERASE ,URINE NEGATIVE (NEGATIVE); NITRITE,URINE NEGATIVE (NEGATIVE); PROTEIN,URINE NEGATIVE (NEGATIVE); UROBILINOGEN,URINE 0.2 MG/DL (NORMAL)
[2018-07-10 19:11] LABS: WBC,URINE 0-2 /HPF
[2018-07-10 19:40] LABS: INR 1.1 (0.8-1.4); PROTHROMBIN TIME PATIENT 14.1 SEC (12.2-14.7)
--- NOTE | 2018-07-10 19:40 | Diagnostic Imaging Report ---
INDICATION: Stroke symptoms. FINDINGS: There is cardiomegaly and central pulmonary venous congestion. The lungs clear. There is no pleural effusion or pneumothorax. IMPRESSION: Cardiomegaly and moderate central venous pulmonary congestion. Dictated by: Dictated on workstation # [id number]
--- NOTE | 2018-07-10 19:40 | Diagnostic Imaging Report ---
INDICATION: Shoulder pain. FINDINGS: The alignment is normal. There are degenerative changes. There is no fracture or dislocation. Left lung is clear. Soft tissues are unremarkable. IMPRESSION: Osteopenia and some degenerative changes, however, no acute fracture or dislocation. Dictated by: Dictated on workstation # [id number]
--- NOTE | 2018-07-10 19:44 | Diagnostic Imaging Report ---
PROCEDURE: CT head and CT cervical spine without contrast. TECHNIQUE: Multiple contiguous axial images were obtained through the brain and cervical spine without the use of intravenous contrast. Sagittal and coronal reformations through the cervical spine were then performed. Auto Exposure Controls were utilized during the CT exam to meet ALARA standards for radiation dose reduction. INDICATION: Stroke symptoms and ectasia. COMPARISON: 05/03/2016. FINDINGS: There is prominence of the ventricles and sulci. There is moderate chronic microvascular ischemic disease. There is no hydrocephalus. There is no midline shift. There is no intracranial mass, hemorrhage or extra-axial fluid collection. There is an unchanged benign-appearing calcification in the right frontal lobe. There is extensive calcification along the frontal falx. The calvarium is intact. Sinuses and mastoid air cells are clear. There is straightening of the normal cervical lordosis. There is slight anterolisthesis of C3 on C4 and C4 on C5 which appears to be on a degenerative basis. There is degenerative disc disease at C4-5, C5-6 and C6-7. There is no fracture or traumatic subluxation. The odontoid is intact. The lateral masses are well-aligned. There is marked posterior facet arthropathy. Pre-vertebral soft tissues are within normal limits. The lung apices are clear. IMPRESSION: 1. Atrophy and chronic microvascular ischemic disease however no other acute intracranial abnormality. 2. Moderate cervical spondylosis and degenerative disc disease without acute fracture or traumatic subluxation. Dictated by: Dictated on workstation # [id number]
[2018-07-10] MEDS ORDERED: HYDROcodone/APAP 5 MG/325 MG (LORTAB) TAB PO ONE (19:45)
[2018-07-10 19:50] LABS: BILIRUBIN,TOTAL 0.7 MG/DL (0.1-1.0); BUN/CREATININE RATIO 15; CALCIUM 8.5 MG/DL (8.5-10.1); CARBON DIOXIDE 25 MMOL/L (21-32); CHLORIDE 99 MMOL/L (98-107); CREATININE SERUM 0.67 MG/DL (0.60-1.30); GFR ESTIMATED > 60; GLUCOSE 121 MG/DL (70-105); POTASSIUM 3.4 MMOL/L (3.6-5.0); SODIUM 137 MMOL/L (135-145)
[2018-07-10 19:51] LABS: ALANINE AMINOTRANSFERASE 21 U/L (0-55); ALBUMIN 3.9 GM/DL (3.2-4.5); ALKALINE PHOSPHATASE 57 U/L (40-136); TOTAL PROTEIN 6.6 GM/DL (6.4-8.2)
[2018-07-10] MEDS ORDERED: FLUO20CA42 PO (20:43)
[2018-07-10] MEDS ORDERED: FLUO10CA29 PO (20:43)
[2018-07-10 21:40] VITALS: BP 171/70
== END 2018-07-10 21:15 | disposition home or self-care (01) ==
LOC: EDUNIT# 17:34 → ER FS 17:34
DX: F41.0 Panic disorder [episodic paroxysmal anxiety] (principal); R20.2 Paresthesia of skin; L89.152 Pressure ulcer of sacral region, stage 2; I25.10 Atherosclerotic heart disease of native coronary artery without angina pectoris; I25.2 Old myocardial infarction; E78.00 Pure hypercholesterolemia, unspecified; I10 Essential (primary) hypertension; E11.40 Type 2 diabetes mellitus with diabetic neuropathy, unspecified; F32.9 Major depressive disorder, single episode, unspecified; F17.210 Nicotine dependence, cigarettes, uncomplicated; Z86.73 Personal history of transient ischemic attack (TIA), and cerebral infarction without residual deficits; Z82.49 Family history of ischemic heart disease and other diseases of the circulatory system; Z95.5 Presence of coronary angioplasty implant and graft; Z98.890 Other specified postprocedural states; Z88.8 Allergy status to other drugs, medicaments and biological substances; Z91.041 Radiographic dye allergy status; Z79.82 Long term (current) use of aspirin; Z79.02 Long term (current) use of antithrombotics/antiplatelets; Z79.4 Long term (current) use of insulin
CPT/HCPCS: 36415; 70450; 71045; 72125; 73030; 80053; 81000; 83880; 84484; 85025; 85610; 85730; 96374

== ENCOUNTER 2018-08-22 19:34 | Emergency (ER) | payer MEDICARE ==
[~2018-08-22] VITALS: Ht 172.7 cm; Wt 113.4 kg
[~2018-08-22 19:34] MED LIST changes: +FLUO10CA29 PO; +FLUO20CA42 PO
[2018-08-22] MEDS ORDERED: TETANUS,DIPTH,PERTUSS P/F (BOOSTRIX) 0.5 ML VIAL IM ONE (20:00)
[2018-08-22 20:01] LABS: BILIRUBIN,URINE NEGATIVE (NEGATIVE); CLARITY,URINE SLIGHTLY CLOUDY; COLOR,URINE YELLOW; GLUCOSE, URINE (UA) 2+ (NEGATIVE); KETONES,URINE NEGATIVE (NEGATIVE); LEUKOCYTE ESTERASE ,URINE NEGATIVE (NEGATIVE); NITRITE,URINE NEGATIVE (NEGATIVE); PH,URINE 6 (5-9); PROTEIN,URINE 1+ (NEGATIVE); UROBILINOGEN,URINE 1 MG/DL (NORMAL)
[2018-08-22 20:08] LABS: BACTERIA,URINE NEGATIVE /HPF; SQUAMOUS EPITHELIAL CELL,UR RARE /HPF
--- NOTE | 2018-08-22 20:26 | ED Lower Extremity ---
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 Daughter spent most of afternoon with him at [facility], his legs were elevated. After dinner, he was not attended to and got on his motorized scooter and was found driving down the road. He is complaining of left leg pain from swelling, his daughter reports both legs look swollen but no worse than usual. He had appt with Kristel TALBERT today, but didn't want to go, so they re-scheduled. He has superficial abrasions to his right lower leg and ecchymosis to his right inner thigh. When asked where he hurts, he points to his right thigh. He was unable to bear weight to be transferred from wheelchair to bed. He is on both Plavix and aspirin. Onset: this evening Pain/Injury Location: bilateral leg Method of Injury: unknown Allergies and Home Medications Allergies Coded Allergies: dapagliflozin (Verified Allergy, Unknown, 11/22/17) donepezil (Verified Allergy, Unknown, 11/22/17) iodine (Verified Allergy, Unknown, 11/22/17) Home Medications Aspirin 81 Mg Tablet.dr, 81 MG PO HS, (Reported) Carboxymethylcellulose Sodium 15 Ml Drops, 1 DROP OU TID, (Reported) Cefdinir 300 Mg Capsule, 300 MG PO BID Prescribed by: MARYAM MANZO on 05/22/18 1051 Citalopram Hydrobromide 40 Mg Tablet, 20 MG PO HS, (Reported) TAKES 1/2 (40MG) TABLET Clopidogrel Bisulfate 75 Mg Tablet, 75 MG PO DAILY, (Reported) Clotrimazole 15 Gm Cream..g., 15 GM TP BID Apply thin layer to rash on foot twice a day for 10 days to treat fungal rash Prescribed by: THOMAS CISNEROS on 06/29/18 1406 Cyanocobalamin (Vitamin B-12) 2,500 Mcg Tablet, 1,250 MCG PO DAILY, (Reported) TAKES 1/2 OF A (2,500 MCG) TABLET Donepezil HCl 10 Mg Tablet, 10 MG PO HS, (Reported) Doxazosin Mesylate 8 Mg Tablet, 8 MG PO HS, (Reported) Finasteride 5 Mg Tablet, 5 MG PO DAILY, (Reported) Fluoxetine HCl 10 Mg Capsule, 10 MG PO HS Prescribed by: JEREMIAS BERKOWITZ on 07/10/182042 Fluoxetine HCl 20 Mg Capsule, 20 MG PO HS Prescribed by: JEREMIAS BERKOWITZ on 07/10/182042 Furosemide 40 Mg Tablet, 40 MG PO DAILY Prescribed by: HIPOLITO AMANDA on 08/22/182130 Glyburide 5 Mg Tablet, 5 MG PO 0700,1630, (Reported) Guaifenesin 600 Mg Tab.er.12h, 600 MG PO Q12H PRN for URI, (Reported) Guaifenesin/Codeine Phosphate 118 Ml Liquid, 10 ML PO Q6H PRN for COUGH, (Reported) Hydrocodone/Acetaminophen 1 Each Tablet, 1 TAB PO Q4H PRN for PAIN-MODERATE, (Reported) Loratadine 10 Mg Tablet, 10 MG PO DAILY, (Reported) Metformin HCl 500 Mg Tablet, 500 MG PO DAILY, (Reported) Presto 3 Polyunsat Fatty Acids 1,000 Mg Cap, 2,000 MG PO BID, (Reported) Phenol 177 Ml Spearfish, 1 SPRAY MM Q2H PRN for SORE THROAT, (Reported) Phenytoin Sodium Extended 100 Mg Capsule, 200 MG PO BID, (Reported) TAKES 2 (100 MG) CAPSULES Polyethylene Glycol 3350 17 Gm Powd.pack, 17 GM PO DAILY, (Reported) Silver Sulfadiazine 25 Gm Cream..g., TOP DAILY, (Reported) RIGHT ANKLE Simvastatin 40 Mg Tablet, 20 MG PO HS, (Reported) TAKES 1/2 OF A (40 MG) TABLET Tramadol HCl 50 Mg Tablet, 50 MG PO Q6H PRN for PAIN-MODERATE, (Reported) Trazodone HCl 50 Mg Tablet, 150 MG PO HS, (Reported) TAKES 3 (50MG) TABLETS Patient Home Medication List Home Medication List Reviewed: Yes Review of Systems Constitutional: no symptoms reported, see HPI Musculoskeletal: see HPI, muscle pain (bilateral lower extremities) All Other Systems Reviewed Negative Unless Noted: Yes Past Fgybfhn-Ogfoum-Odhmwq Hx Past Med/Social Hx: Reviewed Nursing Past Med/Soc Hx Patient Social History Alcohol Beverage of Choice: [place], Wine Type Used: Cigarettes 2nd Hand Smoke Exposure: No Recent Foreign Travel: No Contact w/Someone Who Travel: No Recent Hopitalizations: No Immunizations Up To Date PED Vaccines UTD: Yes Date of Pneumonia Vaccine: Dec 15, 2015 Date of Influenza Vaccine: Nov 20, 2017 Seasonal Allergies Seasonal Allergies: No Past Medical History Surgeries: Yes (KNEE SCOPE; CARDIAC CATHS WITH STENT; LOOP RECORDER) Cardiac, Coronary Stent, Orthopedic Respiratory: No Chronic Bronchitis Currently Using CPAP: No Currently Using BIPAP: No Cardiac: Yes (CARDIAC CATH WITH STENT; LOOP RECORDER IN PLACE) Coronary Artery Disease, Heart Attack, High Cholesterol, Hypertension Neurological: Yes (CVA WITH APHASIA; TRIGEMINAL NEURALGIA) Neuropathy, Stroke, TIA Sexually Transmitted Disease: No HIV/AIDS: No Genitourinary: Yes Prostate Problems Gastrointestinal: No Musculoskeletal: Yes (KNEE SCOPE) Endocrine: Yes Diabetes, Non-Insulin dep HEENT: Yes Cataract Loss of Vision: Denies Hearing Impairment: Denies Cancer: No Psychosocial: Yes Depression Integumentary: No Blood Disorders: No Adverse Reaction/Blood Tranf: No Family Medical History Diabetes mellitus 19 MOTHER FH: congestive heart failure 19 MOTHER Headache disorder Hypertension 19 FATHER Myocardial infarction 19 FATHER No Pertinent Family Hx Physical Exam Vital Signs Vital Signs - First Documented 08/22/18 08/22/18 19:48 20:48 Temp 96.8 Pulse 64 Resp 18 B/P (MAP) 133/68 (89) Pulse Ox 99 O2 Delivery Room Air Capillary Refill : Height, Weight, BMI Height: 5'8.00" Weight: 250lbs. 0oz. 113.729086gy; 29.6 BMI Method:Estimated General Appearance: WD/WN, no apparent distress Neck: non-tender, full range of motion, supple, normal inspection Cardiovascular: normal peripheral pulses, regular rate, rhythm; No no edema; no murmur, other (peripheral pulses are 2+ and symmetric. 2+ pitting edema bilateral lower extremities) Respiratory: chest non-tender, lungs clear, normal breath sounds Gastrointestinal: normal bowel sounds, non tender, soft Hips: bilateral hip non-tender, bilateral hip normal inspection, bilateral hip normal range of motion, bilateral hip no evidence of injury Legs: right leg deformity (tray shortening and neck sternal rotation), right leg ecchymosis (medial thigh) Knees: left knee normal inspection, left knee normal range of motion, left knee bone tenderness, left knee pain (tibial tuberosity), left knee soft tissue tenderness Feet: bilateral foot non-tender, bilateral foot normal range of motion, bilateral foot no evidence of injury, bilateral foot swelling Neurologic/Tendon: normal sensation, normal motor functions, normal tendon functions Neurologic/Psychiatric: no motor/sensory deficits, alert, normal mood/affect (per baseline), other (negative Homans bilateral lower extremities) Skin: normal color, warm/dry Progress/Results/Core Measures Results/Orders Lab Results Laboratory Tests Test 08/22/18 19:48 08/22/18 19:54 Range/Units Urine Color YELLOW Urine Clarity SLIGHTLY CLOUDY Urine pH 6 5-9 Urine Specific [place] 1.015 L 1.016-1.022 Urine Protein 1+ H NEGATIVE Urine Glucose (UA) 2+ H NEGATIVE Urine Ketones NEGATIVE NEGATIVE Urine Nitrite NEGATIVE NEGATIVE Urine Bilirubin NEGATIVE NEGATIVE Urine Urobilinogen 1 NORMAL MG/DL Urine Leukocyte Esterase NEGATIVE NEGATIVE Urine RBC (Auto) NEGATIVE NEGATIVE Urine RBC NONE /HPF Urine WBC NONE /HPF Urine Squamous Epithelial Cells RARE /HPF Urine Crystals NONE /LPF Urine Bacteria NEGATIVE /HPF Urine Casts NONE /LPF Urine Mucus NEGATIVE /LPF Urine Culture Indicated NO Glucometer 193 H 70-110 MG/DL My Orders Orders - HIPOLITO AMANDA [employer] Tibia/Fibula, Right, 2 Views (08/22/18 19:57) Pelvis With Right Hip 2-3views (08/22/18 19:57) Dipht,Pertuss(Acell),Tet Adult (Boostrix (08/22/18 20:00) Ua Culture If Indicated (08/22/18 19:57) Knee, Left, 3 Views (08/22/18 21:00) Acetaminophen Tablet/Caplet (Tylenol T (08/22/18 21:23) Medications Given in ED Current Medications Medications Dose Ordered Sig/Taqueria Route Start Time Stop Time Status Last Admin Dose Admin Diphtheria/ Tetanus/Acell Pertussis 0.5 ml ONCE ONCE IM 08/22/18 20:00 08/22/18 20:01 DC 08/22/18 20:10 0.5 ML Vital Signs/I&O 08/22/18 08/22/18 08/22/18 19:48 20:48 21:41 Temp 96.8 96.8 96.8 Pulse 64 62 60 Resp 18 18 18 B/P (MAP) 133/68 (89) 126/84 (98) 130/66 (87) Pulse Ox 99 99 O2 Delivery Room Air Room Air Diagnostic Imaging Diagonstic Imaging: Xray Plain Films/CT/US/NM/MRI: pelvis, hip Comments NAME: MENDEL AGUERO [facility] REC#: [id number] PT STATUS: REG ER : 1930 PHYSICIAN: HIPOLITO AMANDA ADMIT DATE: 08/22/18/ER Draft Date of Exam:08/22/18 PELVIS WITH RIGHT HIP 2-3VIEWS INDICATION: Fell, right hip pain FINDINGS: AP view of the pelvis and two views of the right hip demonstrate no fracture, dislocation or diastasis. Arteriosclerosis is present. IMPRESSION: There are no acute findings. Dictated on workstation # [id number] Dict: 08/22/182028 Trans: 08/22/182036 JOHNIE [phone] Interpreted by: ADRIAN LEE MD Electronically signed by: Reviewed: Reviewed by Me Diagonstic Imaging: Xray Plain Films/CT/US/NM/MRI: other (tib-fib) Comments NAME: MENDEL AGUERO [facility] REC#: [id number] PT STATUS: REG ER : 1930 PHYSICIAN: HIPOLITO AMANDA ADMIT DATE: 08/22/18/ER Draft Date of Exam:08/22/18 TIBIA/FIBULA, RIGHT, 2 VIEWS INDICATION: Fell, right hip pain, right tibia and fibular swelling FINDINGS: Two views of the right tibia and fibula demonstrate no fracture or dislocation. IMPRESSION: Negative right tibia and fibula. Dictated on workstation # [id number] Dict: 08/22/182027 Trans: 08/22/182034 JOHNIE [phone] Interpreted by: ADRIAN LEE MD Electronically signed by: Reviewed: Reviewed by Me Diagonstic Imaging: Xray Plain Films/CT/US/NM/MRI: knee Comments NAME: MENDEL AGUERO [facility] REC#: [id number] PT STATUS: REG ER : 1930 PHYSICIAN: HIPOLITO AMANDA ADMIT DATE: 08/22/18/ER Draft Date of Exam:08/22/18 KNEE, LEFT, 3 VIEWS INDICATION: Fell with left knee pain. FINDINGS: 3 views of the left knee demonstrates mild degenerative changes. No fracture, dislocation or joint effusion is present. Arteriosclerosis is present. IMPRESSION: There are no acute findings to the left knee. Dictated on workstation # [id number] Dict: 08/22/182118 Trans: 08/22/182122 [facility] [phone] Interpreted by: ADRIAN LEE MD Electronically signed by: Reviewed: Reviewed by Me Departure Impression Primary Impression: Localized swelling of both lower legs Disposition: HOME, SELF-CARE Condition: Improved Departure-Patient Inst. Decision time for Depature: 21:15 Referrals: JOSÉ MIGUEL RIOS MD (PCP/Family) Primary Care Physician Patient Instructions: Dependent Edema (DC) Add. Discharge Instructions: Ice to left knee for 20 minutes every 2 hours while awake. Continue medications as previously ordered by Dr. Rios. Lasix 40 mg every morning. Follow-up with Dr. Rios early next week. Reschedule appointment with cardiology for next week. Return to emergency department for new, urgent health care problems. All discharge instructions reviewed with patient and/or family. Voiced understanding. Scripts Furosemide (Lasix) 40 Mg Tablet 40 MG PO DAILY, #6 TAB 0 Refills Prov: HIPOLITO AMANDA 08/22/18 Copy Copies To 1: JOSÉ MIGUEL RIOS MD, AMY ARNP Aug 22, 2018 20:26
--- NOTE | 2018-08-22 20:36 | Diagnostic Imaging Report ---
INDICATION: Fell, right hip pain, right tibia and fibular swelling FINDINGS: Two views of the right tibia and fibula demonstrate no fracture or dislocation. IMPRESSION: Negative right tibia and fibula. Dictated by: Dictated on workstation # [id number]
--- NOTE | 2018-08-22 20:37 | Diagnostic Imaging Report ---
INDICATION: Fell, right hip pain FINDINGS: AP view of the pelvis and two views of the right hip demonstrate no fracture, dislocation or diastasis. Arteriosclerosis is present. IMPRESSION: There are no acute findings. Dictated by: Dictated on workstation # [id number]
[2018-08-22] MEDS ORDERED: ACETAMINOPHEN 325 MG TABLET PO STA (21:23)
--- NOTE | 2018-08-22 21:24 | Diagnostic Imaging Report ---
INDICATION: Fell with left knee pain. FINDINGS: 3 views of the left knee demonstrates mild degenerative changes. No fracture, dislocation or joint effusion is present. Arteriosclerosis is present. IMPRESSION: There are no acute findings to the left knee. Dictated by: Dictated on workstation # [id number]
[2018-08-22] MEDS ORDERED: FURO-124 PO (21:31)
[2018-08-22 21:41] VITALS: BP 130/66
== END 2018-08-22 21:50 | disposition home or self-care (01) ==
LOC: EDUNIT# 19:34 → ER 19:36
DX: R22.43 Localized swelling, mass and lump, lower limb, bilateral (principal); J42 Unspecified chronic bronchitis; I10 Essential (primary) hypertension; E78.00 Pure hypercholesterolemia, unspecified; I25.10 Atherosclerotic heart disease of native coronary artery without angina pectoris; I25.2 Old myocardial infarction; E11.40 Type 2 diabetes mellitus with diabetic neuropathy, unspecified; F32.9 Major depressive disorder, single episode, unspecified; Z88.8 Allergy status to other drugs, medicaments and biological substances; Z91.041 Radiographic dye allergy status; Z79.82 Long term (current) use of aspirin; Z79.02 Long term (current) use of antithrombotics/antiplatelets; Z79.84 Long term (current) use of oral hypoglycemic drugs; Z95.5 Presence of coronary angioplasty implant and graft; Z86.73 Personal history of transient ischemic attack (TIA), and cerebral infarction without residual deficits; Z82.49 Family history of ischemic heart disease and other diseases of the circulatory system
CPT/HCPCS: 73562; 73590; 81000; 82962; 90471; 90715

== ENCOUNTER → 2018-10-08 | Outpatient (CLI) | payer MEDICARE ==
[~2018-10-08] MED LIST changes: +FURO-124 PO
[2018-10-08 17:50] LABS: CLARITY,URINE CLEAR; COLOR,URINE YELLOW; PH,URINE 6.5 (5-9)
[2018-10-08 17:51] LABS: BACTERIA,URINE NEGATIVE /HPF; BILIRUBIN,URINE NEGATIVE (NEGATIVE); GLUCOSE, URINE (UA) NEGATIVE (NEGATIVE); KETONES,URINE NEGATIVE (NEGATIVE); LEUKOCYTE ESTERASE ,URINE NEGATIVE (NEGATIVE); NITRITE,URINE NEGATIVE (NEGATIVE); PROTEIN,URINE NEGATIVE (NEGATIVE); SQUAMOUS EPITHELIAL CELL,UR RARE /HPF; UROBILINOGEN,URINE 0.2 MG/DL (NORMAL); WBC,URINE RARE /HPF
== END ==
LOC: LAB FS 17:33
PROVIDERS: ATTEND Family Medicine
DX: R39.15 Urgency of urination (principal)
CPT/HCPCS: 81000

== ENCOUNTER 2019-04-05 05:44 | Emergency (ER) | payer MEDICARE ==
[~2019-04-05] VITALS: Ht 180.3 cm; Wt 105.0 kg
[~2019-04-05 05:44] MED LIST changes: +SIMV40TA25 PO; -SIMV40TA4 PO; -TRAM50TA2 PO; -TRAZ-222 PO; +TRM50T PO; +TRZ50T PO
[2019-04-05] MEDS ORDERED: fentaNYL INJECTION 100 MCG/2 ML AMP IVP ONE ×2 (06:30→07:45)
--- NOTE | 2019-04-05 06:34 | ED General ---
General Stated Complaint: FALL History of Present Illness Date Seen by Provider: Apr 05, 2019 Time Seen by Provider: 06:10 Initial Comments The patient is an 89-year-old male with a history of hypertension, hyperlipidemia, coronary artery disease status post stenting, some degree of heart failure versus peripheral swelling managed with daily Lasix (no echocardiogram on file), seizure disorder on phenytoin, dementia, history of prior stroke with resulting aphasia although alert and able to answer questions appropriately by shaking head yes or no and following commands correctly as well. Mr. Juárez presents with concern for acute onset of right upper chest wall discomfort and bruising as well as left thigh and knee pain after a reported ground level fall yesterday. Fall was unwitnessed but [facility] staff told family that they believe the patient tried to get up from his recliner without preparing the chair properly and fell down. He was found down on the ground yesterday. He was evaluated by the facility nurse and was felt not to be significantly injured yesterday and so transportation to the emergency department for evaluation was deferred. This morning the patient was noted to be clutching his chest wall in discomfort and so he was transported here for evaluation. Patient is alert and responsive consistent with his baseline mental status per EMS. He appears in no significant distress. Vital signs were appropriate en route. Allergies and Home Medications Allergies Coded Allergies: dapagliflozin (Verified Allergy, Unknown, 11/22/17) donepezil (Verified Allergy, Unknown, 11/22/17) iodine (Verified Allergy, Unknown, 11/22/17) Home Medications Aspirin 81 Mg Tablet.dr, 81 MG PO HS, (Reported) Carboxymethylcellulose Sodium 15 Ml Drops, 1 DROP OU TID, (Reported) Cefdinir 300 Mg Capsule, 300 MG PO BID Prescribed by: MARYAM MANZO on 05/22/18 1051 Citalopram Hydrobromide 40 Mg Tablet, 20 MG PO HS, (Reported) TAKES 1/2 (40MG) TABLET Clopidogrel Bisulfate 75 Mg Tablet, 75 MG PO DAILY, (Reported) Clotrimazole 15 Gm Cream..g., 15 GM TP BID Apply thin layer to rash on foot twice a day for 10 days to treat fungal rash Prescribed by: THOMAS CISNEROS on 06/29/18 1406 Cyanocobalamin (Vitamin B-12) 2,500 Mcg Tablet, 1,250 MCG PO DAILY, (Reported) TAKES 1/2 OF A (2,500 MCG) TABLET Donepezil HCl 10 Mg Tablet, 10 MG PO HS, (Reported) Doxazosin Mesylate 8 Mg Tablet, 8 MG PO HS, (Reported) Finasteride 5 Mg Tablet, 5 MG PO DAILY, (Reported) Fluoxetine HCl 10 Mg Capsule, 10 MG PO HS Prescribed by: JEREMIAS BERKOWITZ on 07/10/182042 Fluoxetine HCl 20 Mg Capsule, 20 MG PO HS Prescribed by: JEREMIAS BERKOWITZ on 07/10/182042 Furosemide 40 Mg Tablet, 40 MG PO DAILY Prescribed by: HIPOLITO AMANDA on 08/22/182130 Glyburide 5 Mg Tablet, 5 MG PO 0700,1630, (Reported) Guaifenesin 600 Mg Tab.er.12h, 600 MG PO Q12H PRN for URI, (Reported) Guaifenesin/Codeine Phosphate 118 Ml Liquid, 10 ML PO Q6H PRN for COUGH, (Reported) Hydrocodone/Acetaminophen 1 Each Tablet, 1 TAB PO Q4H PRN for PAIN-MODERATE, (Reported) Loratadine 10 Mg Tablet, 10 MG PO DAILY, (Reported) Metformin HCl 500 Mg Tablet, 500 MG PO DAILY, (Reported) [place] 3 Polyunsat Fatty Acids 1,000 Mg Cap, 2,000 MG PO BID, (Reported) Phenol 177 Ml Ceiba, 1 SPRAY MM Q2H PRN for SORE THROAT, (Reported) Phenytoin Sodium Extended 100 Mg Capsule, 200 MG PO BID, (Reported) TAKES 2 (100 MG) CAPSULES Polyethylene Glycol 3350 17 Gm Powd.pack, 17 GM PO DAILY, (Reported) Silver Sulfadiazine 25 Gm Cream..g., TOP DAILY, (Reported) RIGHT ANKLE Simvastatin 40 Mg Tablet, 20 MG PO HS, (Reported) TAKES 1/2 OF A (40 MG) TABLET Tramadol HCl 50 Mg Tablet, 50 MG PO Q6H PRN for PAIN-MODERATE, (Reported) Trazodone HCl 50 Mg Tablet, 150 MG PO HS, (Reported) TAKES 3 (50MG) TABLETS Patient Home Medication List Home Medication List Reviewed: Yes Review of Systems Review of Systems Constitutional: see HPI All Other Systems Reviewed Negative Unless Noted: Yes (Negative excepted noted.) Past Rzzqmoe-Tuynyw-Iqnfgd Hx Past Med/Social Hx: Reviewed Nursing Past Med/Soc Hx Patient Social History Alcohol Beverage of Choice: Gallia, Wine Type Used: Cigarettes 2nd Hand Smoke Exposure: No Recent Foreign Travel: No Contact w/Someone Who Travel: No Recent Hopitalizations: No Immunizations Up To Date PED Vaccines UTD: Yes Date of Pneumonia Vaccine: Dec 15, 2015 Date of Influenza Vaccine: Nov 20, 2017 Seasonal Allergies Seasonal Allergies: No Past Medical History Surgeries: Yes (KNEE SCOPE; CARDIAC CATHS WITH STENT; LOOP RECORDER) Cardiac, Coronary Stent, Orthopedic Respiratory: No Chronic Bronchitis Currently Using CPAP: No Currently Using BIPAP: No Cardiac: Yes (CARDIAC CATH WITH STENT; LOOP RECORDER IN PLACE) Coronary Artery Disease, Heart Attack, High Cholesterol, Hypertension Neurological: Yes (CVA WITH APHASIA; TRIGEMINAL NEURALGIA) Neuropathy, Stroke, TIA Sexually Transmitted Disease: No HIV/AIDS: No Genitourinary: Yes Prostate Problems Gastrointestinal: No Musculoskeletal: Yes (KNEE SCOPE) Endocrine: Yes Diabetes, Non-Insulin dep HEENT: Yes Cataract Loss of Vision: Denies Hearing Impairment: Denies Cancer: No Psychosocial: Yes Depression Integumentary: No Blood Disorders: No Adverse Reaction/Blood Tranf: No Family Medical History Reviewed Nursing Family Hx Diabetes mellitus 19 MOTHER FH: congestive heart failure 19 MOTHER Headache disorder Hypertension 19 FATHER Myocardial infarction 19 FATHER No Pertinent Family Hx Physical Exam Vital Signs Vital Signs - First Documented 04/05/19 06:15 Temp 36.1 Pulse 72 Resp 20 B/P (MAP) 104/53 (70) Pulse Ox 100 O2 Delivery Room Air Capillary Refill : Height, Weight, BMI Height: 5'8.00" Weight: 250lbs. 0oz. [phone]; 29.6 BMI Method:Estimated General Appearance: No Apparent Distress Comments This is a very elderly male appearing nontoxic and in no acute distress. Head is normocephalic and atraumatic. Neck is supple and nontender. Oropharynx is moist. Lungs are clear to auscultation in all stations. There is a normal S1 and S2 without rubs or gallops and capillary refill is appropriate, less than 2 seconds globally. There is marked tenderness to palpation of the ribs over the right upper lateral chest wall and right lateral back with associated large area of bruising. No obvious deformity of the chest wall, flail segment or increased work of breathing. Abdomen is soft, nontender and nondistended. Examination of the back reveals bruising to the far right lateral back as above but no midline erythema, warmth, swelling, step-offs or deformities. Skin is warm and dry without cyanosis, clubbing or edema. Psychiatrically, the patient demonstrates appropriate mood and affect and is al ert. Ranging of all extremities demonstrates no pain with ranging of any joint aside from very mild pain with ranging at the left knee. Patient is focally tender over the left mid to lower thigh. Bilateral upper and lower extremities are neurovascularly intact. Neurologically, patient moves all extremities equally, cranial nerves II through XII are intact and no lateralizing deficits are grossly noted. Patient is alert and oriented consistent with his baseline mental status, and is aphasic consistent with his baseline. Progress/Results/Core Measures Suspected Sepsis SIRS Temperature: Pulse: Respiratory Rate: Laboratory Tests 04/05/19 06:30: White Blood Count 6.0 Blood Pressure / Mean: Laboratory Tests 04/05/19 06:30: Creatinine 0.71, INR Comment 1.0, Platelet Count 196, Total Bilirubin 0.5 Results/Orders Lab Results Laboratory Tests Test 04/05/19 06:30 Range/Units White Blood Count 6.0 4.3-11.0 10^3/uL Red Blood Count 3.58 L 4.35-5.85 10^6/uL Hemoglobin 13.6 13.3-17.7 G/DL Hematocrit 38 L 40-54 % Mean Corpuscular Volume 105 H 80-99 FL Mean Corpuscular Hemoglobin 38 H 25-34 PG Mean Corpuscular Hemoglobin Concent 36 32-36 G/DL Red Cell Distribution Width 12.9 10.0-14.5 % Platelet Count 196 130-400 10^3/uL Mean Platelet Volume 9.2 7.4-10.4 FL Neutrophils (%) (Auto) 50 42-75 % Lymphocytes (%) (Auto) 35 12-44 % Monocytes (%) (Auto) 10 0-12 % Eosinophils (%) (Auto) 4 0-10 % Basophils (%) (Auto) 1 0-10 % Neutrophils # (Auto) 3.0 1.8-7.8 X 10^3 Lymphocytes # (Auto) 2.1 1.0-4.0 X 10^3 Monocytes # (Auto) 0.6 0.0-1.0 X 10^3 Eosinophils # (Auto) 0.2 0.0-0.3 10^3/uL Basophils # (Auto) 0.0 0.0-0.1 10^3/uL Prothrombin Time 14.0 12.2-14.7 SEC INR Comment 1.0 0.8-1.4 Activated Partial Thromboplast Time 22 L 24-35 SEC Urine Color YELLOW Urine Clarity CLEAR Urine pH 8.0 5-9 Urine Specific [place] 1.010 L 1.016-1.022 Urine Protein NEGATIVE NEGATIVE Urine Glucose (UA) TRACE H NEGATIVE Urine Ketones NEGATIVE NEGATIVE Urine Nitrite NEGATIVE NEGATIVE Urine Bilirubin NEGATIVE NEGATIVE Urine Urobilinogen 0.2 < = 1.0 MG/DL Urine Leukocyte Esterase NEGATIVE NEGATIVE Urine RBC (Auto) NEGATIVE NEGATIVE Urine RBC NONE /HPF Urine WBC NONE /HPF Urine Squamous Epithelial Cells RARE /HPF Urine Crystals NONE /LPF Urine Bacteria NEGATIVE /HPF Urine Casts NONE /LPF Urine Mucus NEGATIVE /LPF Urine Culture Indicated NO Sodium Level 138 135-145 MMOL/L Potassium Level 4.3 3.6-5.0 MMOL/L Chloride Level 99 98-107 MMOL/L Carbon Dioxide Level 27 21-32 MMOL/L Anion Gap 12 5-14 MMOL/L Blood Urea Nitrogen 13 7-18 MG/DL Creatinine 0.71 0.60-1.30 MG/DL Estimat Glomerular Filtration Rate > 60 BUN/Creatinine Ratio 18 Glucose Level 187 H 70-105 MG/DL Calcium Level 8.7 8.5-10.1 MG/DL Corrected Calcium 8.6 8.5-10.1 MG/DL Total Bilirubin 0.5 0.1-1.0 MG/DL Aspartate Amino Transf (AST/SGOT) 18 5-34 U/L Alanine Aminotransferase (ALT/SGPT) 17 0-55 U/L Alkaline Phosphatase 73 40-136 U/L Troponin I < 0.30 <0.30 NG/ML Total Protein 7.0 6.4-8.2 GM/DL Albumin 4.1 3.2-4.5 GM/DL My Orders Orders - KEY BERMUDEZ MD Cbc With Automated Diff (04/05/19 06:21) Comprehensive Metabolic Panel (04/05/19 06:21) Troponin I Fs (04/05/19 06:21) Ekg Tracing (04/05/19 06:21) Ct Cervical Spine Wo (04/05/19 06:21) Ct Chest Wo (04/05/19 06:21) Protime With Inr (04/05/19 06:21) Partial Thromboplastin Time (04/05/19 06:21) Ua Culture If Indicated (04/05/19 06:21) Fentanyl Injection (Sublimaze Injection (04/05/19 06:30) Femur 2 View Left (04/05/19 06:27) Knee 2 View Left (04/05/19 06:27) Ct Head/Cervical Spine Wo (04/05/19 06:21) Fentanyl Injection (Sublimaze Injection (04/05/19 07:45) Tibia Fibula 2 View Left (04/05/19 07:59) Pelvis (Ap) (04/05/19 07:59) Medications Given in ED Current Medications Medications Dose Ordered Sig/Taqueria Route Start Time Stop Time Status Last Admin Dose Admin Fentanyl Citrate 50 mcg ONCE ONCE IVP 04/05/19 06:30 04/05/19 06:31 DC 04/05/19 06:30 50 MCG Fentanyl Citrate 50 mcg ONCE ONCE IVP 04/05/19 07:45 04/05/19 07:46 DC 04/05/19 07:38 50 MCG Vital Signs/I&O 04/05/19 06:15 Temp 36.1 Pulse 72 Resp 20 B/P (MAP) 104/53 (70) Pulse Ox 100 O2 Delivery Room Air Capillary Refill : Progress Note : Time: 06:37 Progress Note Very elderly gentleman with a fall at the nursing facility with right-sided rib discomfort and bruising since then. Also complaining of pain to his left thigh and knee. Likely a mechanical fall based on history but will obtain labs and urine and EKG to further evaluate for underlying medical cause for weakness leading to fall. We will image head, cervical spine and chest as well as left lower extremity as noted and will give medication for discomfort. We will then reevaluate. Update 0800: Patient is resting comfortably in no acute distress upon reassessment. Plain films read as negative. Labs and EKG nonacute. Patient continues to indicate that he is having discomfort and due to his baseline communication deficits it is rather difficult to discern exactly where he is having discomfort. He does seem to indicate his left buttock where we note a Stage 1 pressure ulcer which is, per daughter, not new. Patient also seems to indicate his left lower leg laterally where some mild bruising is seen. Low suspicion for fracture but will image both areas. Still pending CT reads at this time. Update 0840: Advanced imaging is back and remarkable for a subtle right fifth rib fracture, likely the source for the patient's chest wall pain. Pain is cont rolled here. We will discharge back to the nursing facility with medication for discomfort and instructions to follow-up very closely with his primary care physician in the office after the weekend. Patient and family are counseled that if he feels worse is that of better or develops other new symptoms of concern that he will need to return to the emergency department right away for reevaluation. All questions are answered. ECG Comment Sinus rhythm, rate 62, no acute ST elevation or depression, right bundle branch block, WA 229, QRS 140, QTc 469, nonischemic tracing, baseline artifact mildly complicates interpretation, EP interpretation. Diagnostic Imaging Comments FEMUR 2 VIEW LEFT INDICATION: Fall out of chair. TECHNIQUE: AP and lateral views left femur, 6:55 AM. CORRELATION STUDY: None FINDINGS: Advanced degenerative changes of the left hip with mild joint space narrowing and osteophyte formation. The femur is intact without evidence for acute fracture. Evaluation of the knee is limited on this study but appears generally unremarkable. Prominent vascular calcifications. IMPRESSION: 1. Negative for acute displaced left femur fracture. Dictated on workstation # [id number] KNEE 2 VIEW LEFT INDICATION: Fall out of chair, pain. TECHNIQUE: 2 views of the left knee CORRELATION STUDY: None FINDINGS: There is no acute fracture. Mild joint space narrowing medially and to a lesser degree laterally. Mild spurlike formation about superior and inferior pole of the patella. Prominent vascular calcifications. IMPRESSION: 1. Negative for acute bony abnormality of the knee. Mildly advanced degenerative changes left knee. Dictated on workstation # [id number] CT HEAD/CERVICAL SPINE WO PROCEDURE: CT head and CT cervical spine without contrast. TECHNIQUE: Multiple contiguous axial images were obtained through the brain and cervical spine without the use of intravenous contrast. Sagittal and coronal reformations through the cervical spine were then performed. Auto Exposure Controls were utilized during the CT exam to meet ALARA standards for radiation dose reduction. INDICATION: Status post fall out of chair. Right-sided rib pain. Bruising. Nonverbal from previous stroke. CORRELATION STUDY: 07/10/2018. FINDINGS: Overall assessment is compromised by some motion artifact. CT HEAD: Generalized atrophic changes with prominence of the ventricles and sulci. Scattered areas of decreased attenuation, while nonspecific, likely reflective of small vessel ischemic disease. Calcification of the right centrum semiovale appears unchanged. Extensive ossification along the falx. No intracranial hemorrhage. No definitive evidence for hyperdense MCA sign. Bony calvarium is intact. CT CERVICAL SPINE: There is rather significant straightening and reversal of the normal cervical lordosis. There is mild anterolisthesis of C3 on C4 and C4 on C5. Slight loss of fine anterior wedging at the C6 level. Rather significant severity of multilevel degenerative disc disease with various areas of disc space narrowing. Endplate osteophyte formation and spur-like formation. Posterior elements with asymmetric areas of hypertrophic facet arthropathy. Odontoid is intact. Lateral masses of C1 and C2 are aligned. Paraspinal soft tissues appearing unremarkable. No apical pneumothorax. IMPRESSION: CT HEAD: 1. Negative for acute traumatic intracranial abnormality. 2. Generalized atrophic changes and involutional changes are present. CT CERVICAL SPINE: 1. Negative for acute fracture or traumatic subluxation. 2. Rather pronounced multilevel cervical spondylosis with significant straightening and reversal of the normal cervical lordosis. Dictated on workstation # [id number] Date of Exam:04/05/19 CT CHEST WO PROCEDURE: CT chest without contrast. TECHNIQUE: Multiple contiguous axial images were obtained through the chest without the use of intravenous contrast. Auto Exposure Controls were utilized during the CT exam to meet ALARA standards for radiation dose reduction. INDICATION: Status post fall out of chair, nonverbal from prior stroke. Right-sided rib pain. CORRELATION STUDY: None FINDINGS: Heart size is enlarged with a prominent coronary artery calcification. No appreciable pericardial effusion. Small hiatal hernia. No appreciable mediastinal hematoma. No definitive pathologically enlarged mediastinal lymph nodes on noncontrast imaging. Moderate calcification of the thoracic aorta, nonaneurysmal. Lung kaur demonstrate no consolidating infiltrate. Trace pleural effusions. There is presence of a subtle nondisplaced anterior right 5th rib fracture just proximal to the costochondral junction. Loop recorder device over the anterior left chest. Visualized portion upper abdomen appearing unremarkable. IMPRESSION: 1. Subtle, nondisplaced anterior right 5th rib fracture. 2. Trace pleural effusions. Dictated on workstation # [id number] Departure Impression Primary Impression: Closed traumatic nondisplaced fracture of one rib of right side Qualified Codes: S22.31XA - Fracture of one rib, right side, initial encounter for closed fracture Additional Impression: Fall at [facility] Qualified Codes: W19.XXXA - Unspecified fall, initial encounter; Y92.129 - Unspecified place in [facility] as the place of occurrence of the external cause Disposition: 03 XFER SNF Condition: Improved Departure-Patient Inst. Referrals: JOSÉ MIGUEL ROSALES MD (PCP/Family) Primary Care Physician Patient Instructions: Preventing Falls in the Older Adult, Rib Fractures in [place] lts Add. Discharge Instructions: Please take Tylenol as needed for discomfort and if your pain is not controlled with Tylenol you may try a dose of the stronger pain medicine as discussed. Please follow up with her primary care physician in the next 2-4 days in the office. Return to the emergency department right away with worsening symptoms or other new concerns. Scripts Tramadol HCl (Tramadol HCl) 50 Mg Tablet 25 MG PO Q6H PRN for PAIN-SEVERE (8-10), #8 TAB Prov: KEY BERMUDEZ MD 04/05/19 Acetaminophen (Tylenol Extra Strength) 500 Mg Tablet 500 MG PO Q6H for Pain, #50 TAB Prov: KEY BERMUDEZ MD 04/05/19 KEY BERMUDEZ MD Apr 05, 2019 06:33
[2019-04-05 06:41] LABS: BASOPHILS % (AUTO) 1 % (0-10); EOSINOPHILS # (AUTO) 0.2 10^3/uL (0.0-0.3); EOSINOPHILS % (AUTO) 4 % (0-10); HEMATOCRIT 38 % (40-54); HEMOGLOBIN 13.6 G/DL (13.3-17.7); LYMPHOCYTES # (AUTO) 2.1 X 10^3 (1.0-4.0); LYMPHOCYTES % (AUTO) 35 % (12-44); MEAN CORPUSCULAR HEMOGLOBIN 38 PG (25-34); MEAN CORPUSCULAR HGB CONC 36 G/DL (32-36); MEAN CORPUSCULAR VOLUME 105 FL (80-99); MEAN PLATELET VOLUME 9.2 FL (7.4-10.4); MONOCYTES # (AUTO) 0.6 X 10^3 (0.0-1.0); MONOCYTES % (AUTO) 10 % (0-12); NEUTROPHILS % (AUTO) 50 % (42-75); PLATELET COUNT 196 10^3/uL (130-400); RED CELL DISTRIBUTION WIDTH 12.9 % (10.0-14.5)
[2019-04-05 06:42] LABS: BILIRUBIN,URINE NEGATIVE (NEGATIVE); CLARITY,URINE CLEAR; COLOR,URINE YELLOW; GLUCOSE, URINE (UA) TRACE (NEGATIVE); KETONES,URINE NEGATIVE (NEGATIVE); LEUKOCYTE ESTERASE ,URINE NEGATIVE (NEGATIVE); NITRITE,URINE NEGATIVE (NEGATIVE); PROTEIN,URINE NEGATIVE (NEGATIVE)
[2019-04-05 06:43] LABS: BACTERIA,URINE NEGATIVE /HPF; SQUAMOUS EPITHELIAL CELL,UR RARE /HPF
[2019-04-05 06:57] LABS: ALANINE AMINOTRANSFERASE 17 U/L (0-55); ALBUMIN 4.1 GM/DL (3.2-4.5); ALKALINE PHOSPHATASE 73 U/L (40-136); BILIRUBIN,TOTAL 0.5 MG/DL (0.1-1.0); BUN/CREATININE RATIO 18; CALCIUM 8.7 MG/DL (8.5-10.1); CARBON DIOXIDE 27 MMOL/L (21-32); CHLORIDE 99 MMOL/L (98-107); CREATININE SERUM 0.71 MG/DL (0.60-1.30); GFR ESTIMATED > 60; GLUCOSE 187 MG/DL (70-105); POTASSIUM 4.3 MMOL/L (3.6-5.0); SODIUM 138 MMOL/L (135-145)
--- NOTE | 2019-04-05 07:16 | Diagnostic Imaging Report ---
INDICATION: Fall out of chair, pain. TECHNIQUE: 2 views of the left knee CORRELATION STUDY: None FINDINGS: There is no acute fracture. Mild joint space narrowing medially and to a lesser degree laterally. Mild spurlike formation about superior and inferior pole of the patella. Prominent vascular calcifications. IMPRESSION: 1. Negative for acute bony abnormality of the knee. Mildly advanced degenerative changes left knee. Dictated by: Dictated on workstation # [id number]
--- NOTE | 2019-04-05 07:26 | Diagnostic Imaging Report ---
INDICATION: Fall out of chair. TECHNIQUE: AP and lateral views left femur, 6:55 AM. CORRELATION STUDY: None FINDINGS: Advanced degenerative changes of the left hip with mild joint space narrowing and osteophyte formation. The femur is intact without evidence for acute fracture. Evaluation of the knee is limited on this study but appears generally unremarkable. Prominent vascular calcifications. IMPRESSION: 1. Negative for acute displaced left femur fracture. Dictated by: Dictated on workstation # [id number]
--- NOTE | 2019-04-05 08:28 | Diagnostic Imaging Report ---
Indication: Trauma, fell out of chair Pelvis AP view pelvis shows no fracture or dislocation. IMPRESSION: Negative pelvis Dictated by: Dictated on workstation # [id number]
--- NOTE | 2019-04-05 08:29 | Diagnostic Imaging Report ---
Indication: Leg injury, fell out of chair AP and lateral views of left tibia-fibula show no fracture or dislocation. IMPRESSION: Negative left tibia and fibula Dictated by: Dictated on workstation # [id number]
--- NOTE | 2019-04-05 08:35 | Diagnostic Imaging Report ---
PROCEDURE: CT chest without contrast. TECHNIQUE: Multiple contiguous axial images were obtained through the chest without the use of intravenous contrast. Auto Exposure Controls were utilized during the CT exam to meet ALARA standards for radiation dose reduction. INDICATION: Status post fall out of chair, nonverbal from prior stroke. Right-sided rib pain. CORRELATION STUDY: None FINDINGS: Heart size is enlarged with a prominent coronary artery calcification. No appreciable pericardial effusion. Small hiatal hernia. No appreciable mediastinal hematoma. No definitive pathologically enlarged mediastinal lymph nodes on noncontrast imaging. Moderate calcification of the thoracic aorta, nonaneurysmal. Lung kaur demonstrate no consolidating infiltrate. Trace pleural effusions. There is presence of a subtle nondisplaced anterior right 5th rib fracture just proximal to the costochondral junction. Loop recorder device over the anterior left chest. Visualized portion upper abdomen appearing unremarkable. IMPRESSION: 1. Subtle, nondisplaced anterior right 5th rib fracture. 2. Trace pleural effusions. Dictated by: Dictated on workstation # [id number]
--- NOTE | 2019-04-05 08:38 | Diagnostic Imaging Report ---
PROCEDURE: CT head and CT cervical spine without contrast. TECHNIQUE: Multiple contiguous axial images were obtained through the brain and cervical spine without the use of intravenous contrast. Sagittal and coronal reformations through the cervical spine were then performed. Auto Exposure Controls were utilized during the CT exam to meet ALARA standards for radiation dose reduction. INDICATION: Status post fall out of chair. Right-sided rib pain. Bruising. Nonverbal from previous stroke. CORRELATION STUDY: 07/10/2018. FINDINGS: Overall assessment is compromised by some motion artifact. CT HEAD: Generalized atrophic changes with prominence of the ventricles and sulci. Scattered areas of decreased attenuation, while nonspecific, likely reflective of small vessel ischemic disease. Calcification of the right centrum semiovale appears unchanged. Extensive ossification along the falx. No intracranial hemorrhage. No definitive evidence for hyperdense MCA sign. Bony calvarium is intact. CT CERVICAL SPINE: There is rather significant straightening and reversal of the normal cervical lordosis. There is mild anterolisthesis of C3 on C4 and C4 on C5. Slight loss of fine anterior wedging at the C6 level. Rather significant severity of multilevel degenerative disc disease with various areas of disc space narrowing. Endplate osteophyte formation and spur-like formation. Posterior elements with asymmetric areas of hypertrophic facet arthropathy. Odontoid is intact. Lateral masses of C1 and C2 are aligned. Paraspinal soft tissues appearing unremarkable. No apical pneumothorax. IMPRESSION: CT HEAD: 1. Negative for acute traumatic intracranial abnormality. 2. Generalized atrophic changes and involutional changes are present. CT CERVICAL SPINE: 1. Negative for acute fracture or traumatic subluxation. 2. Rather pronounced multilevel cervical spondylosis with significant straightening and reversal of the normal cervical lordosis. Dictated by: Dictated on workstation # [id number]
[2019-04-05] MEDS ORDERED: ACET-2267 PO (08:56)
[2019-04-05] MEDS ORDERED: TRM50T PO (08:56)
[2019-04-05 09:20] VITALS: BP 115/58
== END 2019-04-05 09:15 ==
LOC: EDUNIT# 05:44 → ER FS 06:14
DX: S22.31XA Fracture of one rib, right side, initial encounter for closed fracture (principal); I11.0 Hypertensive heart disease with heart failure; I50.9 Heart failure, unspecified; E78.00 Pure hypercholesterolemia, unspecified; I25.10 Atherosclerotic heart disease of native coronary artery without angina pectoris; G40.909 Epilepsy, unspecified, not intractable, without status epilepticus; I25.2 Old myocardial infarction; E11.40 Type 2 diabetes mellitus with diabetic neuropathy, unspecified; F32.9 Major depressive disorder, single episode, unspecified; Z86.73 Personal history of transient ischemic attack (TIA), and cerebral infarction without residual deficits; Z88.8 Allergy status to other drugs, medicaments and biological substances; Z79.82 Long term (current) use of aspirin; Z79.02 Long term (current) use of antithrombotics/antiplatelets; Z79.84 Long term (current) use of oral hypoglycemic drugs; Z95.5 Presence of coronary angioplasty implant and graft; W18.30XA Fall on same level, unspecified, initial encounter; Y92.129 Unspecified place in nursing home as the place of occurrence of the external cause
CPT/HCPCS: 36415; 70450; 71250; 72125; 72170; 73552; 73560; 73590; 80053; 81000; 84484; 85025; 85610; 85730; 93005; 96374; 96376

== ENCOUNTER 2019-06-11 09:31 | Emergency (ER) | payer MEDICARE ==
[~2019-06-11] VITALS: Ht 172.7 cm; Wt 101.0 kg
[~2019-06-11 09:31] MED LIST changes: +ACET-2267 PO; +ACHD5005 PO; -HYDR-3812 PO
[2019-06-11] MEDS ORDERED: BENZONATATE 100 MG (TESSALON) CAPSULE PO STA (09:49)
--- NOTE | 2019-06-11 09:58 | ED Chest Pain ---
General Chief Complaint: Trauma-Non Activation Stated Complaint: RT SIDE PAIN Nursing Triage Note: Pt arrived via [facility] with c/o of Rt rib pain secondary to a fall from standing 4 days ago. Pt non verbal due to hx of CVA but able to communicate. Report per [facility] from [facility]. Pt denies any other pain or problem. Nursing Sepsis Screen: No Definite Risk Source: patient, RN notes reviewed, [facility] records, old records Exam Limitations: language barrier (old Stroke) History of Present Illness Date Seen by Provider: Jun 11, 2019 Time Seen by Provider: 09:54 Initial Comments This patient is an 89-year-old male that has a long history of stroke and dysphagia presents to the emergency department after slipping out of his wheelchair 4 days ago. Patient has bruising along the right rib cage. Complaints of pain with palpation of the right ribs. Patient states hurts to move his right arm. And is guarding his ribs. Patient was brought [facility] for x- rays to rule out fracture. Location Injury Occurred: intermediate Timing/Duration: 4-5 days Severity/Quality: moderate Radiation: no radiation Activities at Onset: activity Modifying Factors: improves with movement Allergies and Home Medications Allergies Coded Allergies: dapagliflozin (Verified Allergy, Unknown, 11/22/17) donepezil (Verified Allergy, Unknown, 11/22/17) iodine (Verified Allergy, Unknown, 11/22/17) Home Medications Acetaminophen 500 Mg Tablet, 500 MG PO Q6H Prescribed by: KEY BERMUDEZ on 04/05/19 0856 Aspirin 81 Mg Tablet.dr, 81 MG PO HS, (Reported) Carboxymethylcellulose Sodium 15 Ml Drops, 1 DROP OU TID, (Reported) Cefdinir 300 Mg Capsule, 300 MG PO BID Prescribed by: MARYAM MANZO on 05/22/18 1051 Citalopram Hydrobromide 40 Mg Tablet, 20 MG PO HS, (Reported) TAKES 1/2 (40MG) TABLET Clopidogrel Bisulfate 75 Mg Tablet, 75 MG PO DAILY, (Reported) Clotrimazole 15 Gm Cream..g., 15 GM TP BID Apply thin layer to rash on foot twice a day for 10 days to treat fungal rash Prescribed by: THOMAS CISNEROS on 06/29/18 1406 Cyanocobalamin (Vitamin B-12) 2,500 Mcg Tablet, 1,250 MCG PO DAILY, (Reported) TAKES 1/2 OF A (2,500 MCG) TABLET Donepezil HCl 10 Mg Tablet, 10 MG PO HS, (Reported) Doxazosin Mesylate 8 Mg Tablet, 8 MG PO HS, (Reported) Finasteride 5 Mg Tablet, 5 MG PO DAILY, (Reported) Fluoxetine HCl 10 Mg Capsule, 10 MG PO HS Prescribed by: JEREMIAS BERKOWITZ on 07/10/182042 Fluoxetine HCl 20 Mg Capsule, 20 MG PO HS Prescribed by: JEREMIAS BERKOWITZ on 07/10/182042 Furosemide 40 Mg Tablet, 40 MG PO DAILY Prescribed by: HIPOLITO AMANDA on 08/22/182130 Glyburide 5 Mg Tablet, 5 MG PO 0700,1630, (Reported) Guaifenesin 600 Mg Tab.er.12h, 600 MG PO Q12H PRN for URI, (Reported) Guaifenesin/Codeine Phosphate 118 Ml Liquid, 10 ML PO Q6H PRN for COUGH, (Reported) Hydrocodone Bit/Acetaminophen 1 Each Tablet, 1 TAB PO Q4H PRN for PAIN-MODERATE, (Reported) Loratadine 10 Mg Tablet, 10 MG PO DAILY, (Reported) Metformin HCl 500 Mg Tablet, 500 MG PO DAILY, (Reported) [place] 3 Polyunsat Fatty Acids 1,000 Mg Cap, 2,000 MG PO BID, (Reported) Phenol 177 Ml [place], 1 SPRAY MM Q2H PRN for SORE THROAT, (Reported) Phenytoin Sodium Extended 100 Mg Capsule, 200 MG PO BID, (Reported) TAKES 2 (100 MG) CAPSULES Polyethylene Glycol 3350 17 Gm Powd.pack, 17 GM PO DAILY, (Reported) Silver Sulfadiazine 25 Gm Cream..g., TOP DAILY, (Reported) RIGHT ANKLE Simvastatin 40 Mg Tablet, 20 MG PO HS, (Reported) TAKES 1/2 OF A (40 MG) TABLET Tramadol HCl 50 Mg Tablet, 50 MG PO Q6H PRN for PAIN-MODERATE, (Reported) Tramadol HCl 50 Mg Tablet, 25 MG PO Q6H PRN for PAIN-SEVERE (8-10) Prescribed by: KEY BERMUDEZ on 04/05/19 0856 Trazodone HCl 50 Mg Tablet, 150 MG PO HS, (Reported) TAKES 3 (50MG) TABLETS Patient Home Medication List Home Medication List Reviewed: Yes Review of Systems Review of Systems Constitutional: no symptoms reported, see HPI, chills, diaphoresis, dizziness, fever, malaise, weakness, weight gain, weight loss, other EENTM: No No Symptoms Reported, No See HPI, No Blurred Vision, No Double Vision, No Eye Pain, No Eye Tearing, No Ear Drainage, No Ear Pain, No Mouth Pain, No Mouth Swelling, No Nose Congestion, No Nose Pain, No Throat Pain, No Throat Swelling, No Other Respiratory: Denies No Symptoms Reported, Denies See HPI, Denies Cough, Denies Orthopnea, Denies Shortness of Air, Denies SOA With Exertion, Denies SOA at Rest, Denies Stridor, Denies Wheezing, Denies Other Cardiovascular: Chest Pain Gastrointestinal: Denies No Symptoms Reported, Denies See HPI, Denies Abdomen Distended, Denies Abdominal Pain, Denies Blood Streaked Stools, Denies Constipated, Denies Diarrhea, Denies Difficulty Swallowing, Denies Nausea, Denies Poor Appetite, Denies Poor Fluid Intake, Denies Rectal Bleeding, Denies Vomiting, Denies Other Genitourinary: Denies No Symptoms Reported, Denies See HPI, Denies Burning, Denies Discharge, Denies Drainage, Denies Frequency, Denies Flank Pain, Denies Hematuria, Denies Incontinence, Denies Pain, Denies Urgency, Denies Other Musculoskeletal: No no symptoms reported, No see HPI, No back pain, No gout, No joint pain, No joint swelling, No muscle pain, No muscle stiffness, No muscle cramps, No muscle twitching, No muscle weakness, No neck pain, No other Skin: No no symptoms reported, No see HPI, No change in color, No change in h air/nails, No dryness, No hx of skin cancer, No lesions, No lumps, No pruritus, No rash, No other Psychiatric/Neurological: Denies No Symptoms Reported, Denies See HPI, Denies Anxiety, Denies Depressed, Denies Emotional Problems, Denies Headache, Denies Numbness, Denies Paresthesia, Denies Pre-Existing Deficit, Denies Seizure, Denies Tingling, Denies Tremors, Denies Weakness, Denies Other Endocrine: Denies No Symptoms Reported, Denies See HPI, Denies Excessive Swe ating, Denies Flushing, Denies Intolerance to Cold, Denies Intolerance to Heat, Denies Increased Hunger, Denies Increased Thrist, Denies Increased Urine, Denies Unexplained Weight Gain, Denies Unexplaned Weight Loss, Denies Other All Other Systems Reviewed Negative Unless Noted: Yes Past Enuxulx-Kkybcl-Zypyam Hx Patient Social History Alcohol Beverage of Choice: [place], Wine Type Used: Cigarettes 2nd Hand Smoke Exposure: No Recent Foreign Travel: No Contact w/Someone Who Travel: No Recent Hopitalizations: No Immunizations Up To Date PED Vaccines UTD: Yes Date of Pneumonia Vaccine: Dec 15, 2015 Date of Influenza Vaccine: Nov 20, 2017 Seasonal Allergies Seasonal Allergies: No Past Medical History Surgeries: Yes (KNEE SCOPE; CARDIAC CATHS WITH STENT; LOOP RECORDER) Cardiac, Coronary Stent, Orthopedic Respiratory: No Chronic Bronchitis Currently Using CPAP: No Currently Using BIPAP: No Cardiac: Yes (CARDIAC CATH WITH STENT; LOOP RECORDER IN PLACE) Coronary Artery Disease, Heart Attack, High Cholesterol, Hypertension Neurological: Yes (CVA WITH APHASIA; TRIGEMINAL NEURALGIA) Neuropathy, Stroke, TIA Sexually Transmitted Disease: No HIV/AIDS: No Genitourinary: Yes Prostate Problems Gastrointestinal: No Musculoskeletal: Yes (KNEE SCOPE) Endocrine: Yes Diabetes, Non-Insulin dep HEENT: Yes Cataract Loss of Vision: Denies Hearing Impairment: Denies Cancer: No Psychosocial: Yes Depression Integumentary: No Blood Disorders: No Adverse Reaction/Blood Tranf: No Family Medical History Diabetes mellitus 19 MOTHER FH: congestive heart failure 19 MOTHER Headache disorder Hypertension 19 FATHER Myocardial infarction 19 FATHER No Pertinent Family Hx Physical Exam Vital Signs Vital Signs - First Documented 06/11/19 09:42 Temp 36.9 Pulse 58 Resp 18 B/P (MAP) 123/50 (74) Pulse Ox 96 O2 Delivery Room Air Capillary Refill : Less Than 3 Seconds Height, Weight, BMI Height: 5'8.00" Weight: 250lbs. 0oz. 113.760666ox; 32.00 BMI Method:Estimated General Appearance: No Apparent Distress, WD/WN HEENT: PERRL/EOMI, TMs Normal, Normal ENT Inspection, Pharynx Normal Neck: Full Range of Motion, Normal Inspection, Non Tender Respiratory: Lungs Clear, Normal Breath Sounds, No Accessory Muscle Use, No Respiratory Distress, Other (Chest Wall Tenderness on ) Cardiovascular: Regular Rate, Rhythm, No Edema, No Gallop, No JVD, No Murmur, Normal Peripheral Pulses Gastrointestinal: Normal Bowel Sounds, No Organomegaly, No Pulsatile Mass, Non Tender Extremity: Normal Capillary Refill, Normal Inspection, Normal Range of Motion, Non Tender, No Calf Tenderness, No Pedal Edema Neurologic/Psychiatric: Alert, Oriented x3, No Motor/Sensory Deficits, Normal Mood/Affect, Other (Chronic Deficit from previous Stroke. Wheel chair bound and Dysphasia) Skin: Normal Color, Warm/Dry Progress/Results/Core Measures Results/Orders My Orders Orders - MOSES TRAN MD Ribs 2-3 View Right (06/11/19 09:49) Benzonatate Capsule (Tessalon Perles) (06/11/19 09:49) Vital Signs/I&O 06/11/19 06/11/19 09:42 09:42 Temp 36.9 36.9 Pulse 58 58 Resp 18 18 B/P (MAP) 123/50 (74) 123/50 (74) Pulse Ox 96 O2 Delivery Room Air Room Air Blood Pressure Mean: 74 Diagnostic Imaging Diagonstic Imaging: Xray Plain Films/CT/US/NM/MRI: chest Comments Negative for any acute injury. Reviewed: Reviewed by Me Departure Impression Primary Impression: Rib contusion Additional Impression: Fall Disposition: 03 XFER SNF Condition: Stable Departure-Patient Inst. Decision time for Depature: 10:46 Referrals: JOSÉ MIGUEL ROSALES MD (PCP/Family) Primary Care Physician Patient Instructions: Bruised Rib Add. Discharge Instructions: Continue with home hydrocodone medication to take for pain. We will add Tessalon Perles to help with the chest wall pain. Follow-up with your primary care physician as needed. May use ice as needed for pain. Watch closely and be careful of falls. All discharge instructions reviewed with patient and/or family. Voiced understanding. Scripts Benzonatate (TESSALON PERLES) 100 Mg Capsule 100 MG PO TID for 10 Days, #30 CAP 0 Refills Prov: MOESS TRAN MD 06/11/19 MOSES TRAN MD Jun 11, 2019 09:58
--- OUTSIDE RECORDS SUMMARY | 2019-06-11 09:58 | XMS REPORT ---
Author Author [employer] Organization [employer] Address [address] [address] Care Team Providers Care Budget Examiner Name Role Phone NO, LOCAL PHYSICIAN Unavailable Unavailable VENUS TALBERT, EMMA Kraft Unavailable Unavailab nicki DASILVA MD, MANJU Kraft Unavailable Unavailable VIDYA NUÑEZ, MANJU Kraft Unavailable Unavailable EWELINA NUÑEZ, RACHAEL He Unavailable Unavailable EWELINA NUÑEZ, RACHAEL He Unavailable Unavailable SELF, JOSÉ MIGUEL Unavailable GENET NUÑEZ, KADE Fulton Unavailable Unavailable GENET NUÑEZ, KADE [place] Unavailable Unavailable SELF, JOSÉ MIGUEL PCP VENUS TALBERT, EMMA Kraft Unavailable Unavailab nicki DASILVA MD, MANJU Kraft Unavailable Unavailable VIDYA NUÑEZ, MANJU Kraft Unavailable Unavailable EWELINA NUÑEZ, RACHAEL E Unavailable Unavailable EWELINA NUÑEZ, RACHAEL E Unavailable Unavailable BLAYNE NUÑEZ, OSCAR He Unavailable Unavailable BOB RIDER, RUBY K Unavailable Unavailable VASILIY, [facility] Unavailable Unavailable JEREMIAS BERKOWITZ Unavailable Unavailable SELF, JOSÉ MIGUEL J Unavailable Unavailable SELF, JOSÉ MIGUEL Unavailable YASMIN ACOSTA DO Unavailable Unavailable JEREMIAS BERKOWITZ MD Unavailable Unavailable MICHELLE NUÑEZ, TASNEEM Gaspar Unavailable Unavailable SELF , JOSÉ MIGUEL Unavailable Unavailable ANUEL LEONARD Unavailable KEY BERMUDEZ MD Unavailable Unavailable Unavailable Unavailable Allergies Normalized Allergy Reported Date of Reaction(s) Care Provider Facility Allergy Type classification allergen Allergy Onset Drug Allergy dapagliflozin dapagliflozin 11-22-2017 - Unknown MANJU DASILVA Not Available (20 sources.) MD ([id number]) Translations: [ Allergy to Substance, Propensity to adverse reactions] Drug Allergy donepezil donepezil 11-22-2017 - Unknown MANJU RED Not Available (20 sources.) Translations: MD ([id number]) Translations: [ Donepezil, [ Allergy to Donepezil Substance, hydrochloride Drug allergy] 10 MG Disintegrating Oral Tablet, DONEPEZIL HCL] Propensity to Unclassified IODINATED 03-25-2019 - D[facility] [facility] reactions (1 AND IV [facility] [place] source[place] ([address]) Drug Allergy Iodine (and iodine 11-22-2017 - iodine MANJU Shaikh DGFELICIANO Not Available (20 sources.) Iodine Translations: ([id number]) MD ( 19460) Translations: containting [ iodine [ Allergy to drugs) ([id number])] Substance] DA (20 Unclassified No Known Drug 01-16-2011 - no information MANJU DASILVA Not Available sources.) Allergies , (73730) Medications Current Medications Medication Ingredient Drug Dose Dates Status Sig Sig Care Class(es) (Normalized) (Original) Provid er acetaminoph Acetaminoph Opioid 10-14-19 Active no Hydrocodon e- no en 325 mg / en / Agonist 18 information Acetaminophe name HYDROcodone HYDROcodone n 5-325 MG (no bitartrate Translation Sep, phone) 5 mg oral s: [ Active tablet (2 Hydrocodone sources.) -Acetaminop hen 5-325 MG] Completed take Hydrocod (no 5-325 one/Acet phone) mg by aminophe mouth n every (Hydroco four done-Deonte hours tamin as 5-325 needed Mg) 1 Each Tablet 1 Tab ORAL Every 4HRS as needed for Pain-Mod erate betamethaso Betamethaso Corticoster 6 mg 07-14-19 Active no no no ne 3 mg/ml ne / oid 18 information information n lonny / Betamethaso (no betamethaso ne acetate phone) ne acetate Translation 3 mg/ml s: [ injectable Betamethaso suspension ne Sod Phos (1 source.) & Acet 6 (3-3) MG/ML] no Carboxymeth no 0.5 % Active no no no information ylcellulose information information information name (1 source.) Sodium 0.5 (no % Eye Drops phone) ciprofloxac Ciprofloxac Quinolone 3 08-16-19 Active no no no in 3 mg/ml in Antimicrobi mg/mL 17 information informati on name ophthalmic Translation al (no solution (1 s: [ phone) source.) Ciprofloxac in HCl 0.3 %] citalopram Citalopram Serotonin 20 mg 08-10-19 Active no no no 20 mg oral Translation Reuptake 17 information informatio n name tablet (2 s: [ Inhibitor (no sources.) Citalopram phone) 20 MG Oral Tablet, Citalopram Hydrobromid e 20 MG] 40 mg Completed take 1 Citalopr (no tablet am phone) by Hydrobro mouth mide at (Citalop bedtim cheng Hbr) e 40 Mg Tablet 20 Mg ORAL Bedtime TAKES 1/2 (40MG) TABLET no Codeine 10 no 12-16-19 Active no no no information Mg-Guaifene information 18 information inform ation name (1 source.) sin 100 (no Mg/5 Ml phone) Oral Liquid 10 fluticasone fluticasone Corticoster 2.5 11-22-19 Active no no no propionate Translation oid mg/{ac 18 information informati on name 0.05 s: [ tuate} (no mg/actuat Fluticasone phone) metered Propionate dose nasal 50 MCG/ACT] spray (1 source.) loratadine Loratadine no 10 mg 11-14-19 Active no Lorat adine no 10 mg oral Translation information 18 information 10 MG 0 1 name tablet (3 s: [ Nov, 2017 (no sources.) Loratadine Active phone) 10 MG] metFORMIN metFORMIN Biguanide 500 mg 08-10-19 Active no Metf ormin no hydrochlori Translation 17 information HCl 500 MG name de 500 mg s: [ Jul, (no oral tablet Metformin Active phone) (2 HCl 500 MG] sources.) nystatin Nystatin Polyene [id number] 11-21-19 Active no no no [id number] Translation Antifungal [IU]/m 18 information informati on name unt/ml s: [ L (no topical Nystatin phone) cream (1 478191 source.) UNIT/GM] no [place] no 01-17-20 Active no [place] no information 3-Dha-Epa-F information 17 information 3-Dha- Epa-Fi name (1 source.) khloe Oil sh Oil 1,000 (no 1,000 Mg Mg (120 phone) (120 Mg-180 Mg-180 Mg) Mg) Capsule Capsule 1999Jan, Active polyethylen POLYETHYLEN Osmotic 17 g 10-04-19 Active no no no e glycol E GLYCOL Laxative 18 information information na me [phone] (no mg powder Translation phone) for oral s: [ solution (2 POLYETHYLEN sources.) E GLYCOL 3350 81306 MG Powder for Oral Solution, Polyethylen e Glycol 3350 -] traMADol traMADol Opioid 50 mg 08-10-19 Active no Tramadol HCl no hydrochlori Translation Agonist 18 information 50 MG 27 name de 50 mg s: [ Jul, 2017 (no oral tablet Tramadol Active phone) (2 HCl 50 MG] sources.) traZODone traZODone Serotonin 150 mg 11-09-19 Active no Traz odone no hydrochlori Translation Reuptake 18 information HCl 150 M G name de 150 mg s: [ Inhibitor Oct, (no oral tablet Trazodone Active phone) (2 Hydrochlori sources.) de 150 MG Oral Tablet, Trazodone HCl 150 MG] 150 mg Completed take 3 Trazodon (no tablet e Hcl 50 phone) s by Mg mouth Tablet at 150 Mg bedtim ORAL e Bedtime TAKES 3 (50MG) TABLETS Completed/Discontinued Medications Medication Ingredient Drug Dose Dates Status Sig Sig Care Class(es) (Normalized) (Original) Provid er azithromyci Azithromyci Macrolide 05-23-19 Complete no Azith romycin (no n 250 mg n Antimicrobi 19 d information 250 Mg ph one) oral tablet al Tablet, 250 (1 source.) Mg Oral As Directed Discontinued carboxymeth Carboxymeth no 1 Complete take 1 Carboxymeth y (no ylcellulose ylcellulose information drop(s d drop(s) into l cellulose phone) sodium 5 ) the eye(s) Sodium mg/ml three times (Refresh ophthalmic daily Tears) 15 Ml solution (1 Drops 1 Drop source.) OPTHALMIC Three Times A Day cefdinir cefdinir Cephalospor 300 mg 05-23-19 Complete take 1 Ce fdinir 300 Ara 300 mg oral in 19 d capsule by Mg Capsule G arner capsule (1 Antibacteri mouth twice 300 Mg ORAL (no source.) al daily Twice A Day phone) 6 Cap 05/22/18 clotrimazol Clotrimazol Azole 150 06-30-19 Complete apply 15 g Clotrimazole Oscar E e 10 mg/ml e Antifungal mg/mL 19 - d topically 15 G m Enyart topical 07-10-19 twice daily Cream..g. 15 (no cream (1 19 Gm TOPICAL phone) source.) Twice A Day for Fungal Rash 10 Days 1 Tube Apply thin layer to rash on foot twice a day for 10 days to treat fungal rash 06/29/18 codeine codeine / Opioid 11-23-19 Complete no Guaifenesin/ Manju phosphate 2 guaiFENesin Agonist 18 - d information Codein e K mg/ml / 05-22-19 Phosphate [place] guaiFENesin 19 (Codeine-Gua (no 20 mg/ml ifen phone) oral Mg/5 Ml) 120 solution (3 Ml Liquid, sources.) 10 Ml Oral 4 Times A Day as needed for Cough 11/22/17 Discontinued Completed take 1 Guaifene (no mL by sin/Code phone) mouth ine every Phosphat six e hours (Virtuss as in Ac needed Liquid) for 118 Ml cough Liquid 10 Ml ORAL Every 6 Hours as needed for Cough no Fish no 05-22-19 Complete no Fish (no information Oil/Dha/Epa information 19 d information Oi l/Dha/Epa phone) (1 source.) (Fish Oil (Fish Oil 1,200 Mg 1,200 Mg Fish Oil) 1 Fish Oil) 1 Each Each Capsule, Capsule, 2400 Mg 2400 Mg Oral Oral Twice A Day Discontinued 12 hr guaiFENesin no 600 mg Complete take 1 Guaifenesin (n o guaiFENesin information d tablet by (Mucinex) phone) 600 mg mouth every 600 Mg extended twelve hours Tab.er.12h release as needed 600 Mg ORAL oral tablet Every 12 (1 source.) Hours as needed for Uri ipratropium ipratropium Anticholine 0.021 11-23-19 Complete no Ipratropium Manju bromide rgic mg/{ac 18 - d information [place] 30 K 0.021 tuate} 05-22-19 Ml [place], 30 [place] mg/actuat 19 Ml Not (no metered Applicable phone) dose nasal Twice A Day spray (2 11/22/17 sources.) Discontinued 1 puff(s) 11-22-2017 Completed take 1 Ipratrop Manju K puff(s ium [place] ) [place] (no nasal 30 Ml phone) route [place] 30 twice Ml NOT daily APPLICAB LE Twice A Day 1 [facility] [place] 1 puff each nostril twice a day 10/10/18 no [place] 3 no 2000 Complete no [place] 3 (no information Polyunsat information mg d information Polyu nsat phone) (1 source.) Fatty Acids Fatty Acids (Fish Oil (Fish Oil 1,000 Mg 1,000 Mg Capsule) Capsule) 1,000 Mg 1,000 Mg Cap Cap 2,000 Mg ORAL Twice A Day phenol 14 phenol no 1 Complete no Phenol (Sore (no mg/ml information spray( d information Throat johnny ne) mucosal s) Halfway) 177 spray (1 Ml Halfway 1 source.) [place] SUBMUCOSAL Every 2 Hours as needed for Sore Throat silver silver Sulfonamide 250 Complete apply 25 g Silver (no sulfADIAZIN sulfADIAZIN Antibacteri mg/mL d topically Sulfa diazine phone) E 10 mg/ml E al once daily (Ssd) 25 Gm topical Cream..g. cream (1 TOPICAL source.) Daily RIGHT ANKLE Problems Active Problems Problem Normalized Date of Normalized Normalized Provider Fac ility Classification Problem(s) Problem Problem Problem Sta tus Onset/Resoluti Duration on Other upper Acute upper Episodic Active JOSÉ MIGUEL SELF Commu nity respiratory respiratory [facility] [facility] infections (2 infection, [place] sources.) unspecified [place] ([address]) Translations: [ - Viral upper respiratory tract infection J06.9] Anxiety Anxiety 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 Active JEREMIAS SHO [facility] Via disorders (15 Translations: [place] sources.) [ Anxiety, - Hospital - Anxiety F41.9, [place] PANIC DISORDER (88365) [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 JOSÉ MIGUEL SELF [facility] Via system [address] [place] disorders (1 Hospital source.) (33152) 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 MANJU CHOU RS Not Available of following MD (21082) cerebrovascula cerebral r disease (29 infarction sources.) Translations: [ DYSPHAGIA FOLLOWING CEREBRAL INFARCTION, HEMIPLGA FOLLOWING CEREBRAL INFRC AFF RI, APHASIA FOLLOWING CEREBRAL INFARCTION, DYSPHAGIA FOLLOWING CEREBRAL INFARCTION, APHASIA FOLLOWING CEREBRAL INFARCTION, Aphasia as late effect of cerebrovascula r disease, Aphasia as late effect of stroke, - 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, - 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, Aphasia following cerebral infarction] Other Constipation Episodic Active JOSÉ MIGUEL SELF [facility] Via gastrointestin Translations: 36422 [place] al disorders [ Hospital (3 sources.) Constipation, (11518) unspecified constipation type, Constipation, unspecified constipation type] Other Constipation, 04-05-2019 - Episodic Active OSCAR Yousif [facility] Via gastrointestin unspecified MD [place] pan disorders Translations: Hospital - (14 sources.) [ - [place] Constipation, (35458) unspecified constipation type K59.00] Superficial Contusion of Episodic Active JOSÉ MIGUEL SELF Comm unity injury; left upper [address] [facility] contusion (2 arm, initial [facility] sources[facility] encounter [place] () Translations: [ - Contusion of left upper extremity, initial encounter S40.022A] Other lower Cough Episodic Active JOSÉ MIGUEL SELF Communit y respiratory Translations: [address] [facility] disease (2 [ - Cough R05] [place] sources[place] (67145) 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 KADE DE LEÓN , Not Available dementia and other diseases (09464) amnestic and classified other elsewhere cognitive without disorders (13 behavioral sources.) disturbance Other 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 AKDE ARLENE T , Not Available genital prostate, (60353) disorders (13 unspecified sources.) Other skin Disorder of Episodic Active JOSÉ MIGUEL SELF Commun ity disorders (4 the skin and [address] [facility] sources.) subcutaneous of [place], [place] () unspecified Translations: [ - Skin lesion L98.9] Other Dysphagia, 04-05-2019 - Episodic Active RACHAEL THEODORE [facility] Via gastrointestin unspecified MD [place] pan disorders Hospital - (11 sources.) [place] (63106) Epilepsy; Epilepsy, 04-09-2019 - Chronic Active RADHA SALVADOR Via convulsions (2 unspecified, MD Tong sources.) not Hospital - intractable, [place] without status (41997) epilepticus 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 ANUEL COLLINS Community disorders (1 dysphasia [facility] [facility] source.) Translations: [facility] [ Expressive [place] (59205) aphasia] External cause Fall on same 04-09-2019 - Episodic Active RADHA SALVADOR Via codes: Fall (2 level, MD [place] sources.) unspecified, Hospital - initial [place] encounter (96597) Residual Family history 04-05-2019 - Episodic Active OSCAR MORENO RT , [facility] Via codes; of ischemic MD Tong unclassified heart disease Hospital - (15 sources.) and other [place] diseases of (72106) the circulatory system Fever of Fever, Episodic Active JOSÉ MIGUEL SELF Community unknown origin unspecified [address] [facility] (2 sources.) Translations: [facility] [ - Fever, [place] (87259) unspecified fever cause R50.9] Other Fracture of 04-09-2019 - Episodic Active KEY BERMUDEZ [facility] Via fractures (4 one rib, right MD Tong sources.) side, initial Hospital - encounter for [place] closed (32331) fracture Genitourinary Gross 04-05-2019 - Episodic Active MANJU HASSAN ERS [facility] Via symptoms and hematuria , MD Tong ill-defined Translations: Hospital - conditions (22 [ RETENTION OF [place] sources.) URINE, (94593) UNSPECIFIED, RETENTION OF URINE, UNSPECIFIED, - Urgency of urination R39.15, FREQUENCY OF MICTURITION] Congestive Heart failure, 04-09-2019 - Chronic Active KEY SWAN [facility] Via heart failure; unspecified MD Tong nonhypertensiv Hospital - e (2 sources.) [place] (57893) Hypertension Hypertensive 04-09-2019 - Chronic Active KEY SWAN [facility] Via with heart disease MD Tong complications with heart Hospital - and secondary failure [place] hypertension (65776) (2 sources.) Other lower Hypoxemia 04-05-2019 - Episodic Active KADE DE LEÓN , Not Available respiratory (74185) disease (13 sources.) Other lower Hypoxia Episodic Active JOSÉ MIGUEL SELF [facility] Via respiratory 8[address] [place] disease (2 Hospital sources.) (53378) Residual Localized Episodic Active JOSÉ MIGUEL SELF Community codes; edema [id number] [place] [address] unclassified Translations: [facility] [place] (5 sources.) [ - Lower leg [place] (39495) edema R60.0, - Pedal edema R60.0] Other skin Localized 04-05-2019 - Episodic Active HIPOLITO VASILIY [facility] Via disorders (5 swelling, mass [place] sources.) and lump, Hospital - lower limb, [place] bilateral (32596) Other ferry terminal agent 04-05-2019 - Episodic Active OSCAR CISNEROS , [facility] Via aftercare (17 (current) use MD Tong sources.) of Hospital - antithrombotic [place] s/antiplatelet (34204) s Other ferry terminal agent 04-05-2019 - Episodic Active OSCAR ENYART , [facility] Via aftercare (17 (current) use MD Tong sources.) of aspirin [facility] (88707) Other [facility] 04-05-2019 - Episodic Active OSCAR ENYART , [facility] Via aftercare (10 (current) use MD Tong sources.) of insulin 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 KADE ZAMORA LT , [facility] Via (16 sources.) depressive MD Tong disorder, [facility] - single [place] episode, (48909) unspecified Disorders of Mixed 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 Active RACHAEL THEODORE , [facility] Via lipid hyperlipidemia MD Tong metabolism (23 Translations: Hospital - sources.) [ [place] HYPERLIPIDEMIA (59986) , UNSPECIFIED, PURE HYPERCHOLESTER OLEMIA, UNSPECIFIED, Pure hypercholester olemia, Pure hypercholester olemia] Other Morbid Chronic Active [employer] nutritional; (severe) [address] [facility] endocrine; and obesity due to of [facility] metabolic excess [place] (15563) disorders (4 calories sources.) Translations: [ - Morbid obesity E66.01] Substance-rela Nicotine 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 Active JEREMIAS WEL LER [facility] Via denis [place] cheung (4 sources.) cigarettes, Hospital - uncomplicated [place] (30676) Heart valve Nonrheumatic Chronic Active [facility] Not Taryn ilable disorders (10 mitral (valve) [facility] (66606) sources.) insufficiency N , [place] Other Obesity 09-01-2010 - Chronic Active [employer]ity nutritional; Translations: 28419 [facility] endocrine; and [ Obesity] of [facility] metabolic [place] (13252) disorders (2 sources.) Residual Obstructive 08-26-2008 - Chronic Active Fluid Stone Community codes; sleep apnea 73642 [facility] unclassified syndrome of [facility] (2 sources.) Translations: [place] (83409) [ SOPHIE on CPAP] Occlusion or Occlusion and Chronic Active [facility] Not A vailable stenosis of stenosis of [facility] (14821) precerebral bilateral N , [place] arteries (10 carotid sources.) arteries Coronary 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 KADE DE LEÓN , Not Available atherosclerosi infarction (82721) s and other Translations: heart disease [ ATHSCL HEART (21 sources.) DISEASE OF [place] CORONARY , PRESENCE OF CORONARY ANGIOPLASTY IMPLANT, OLD MYOCARDIAL INFARCTION, OLD MYOCARDIAL INFARCTION, PRESENCE OF CORONARY ANGIOPLASTY IMPLANT] Osteoarthritis Osteoarthritis 12-27-2011 - Chronic Active [employer] (2 sources.) of knee [address] [facility] Center Translations: [facility] [ [place] (77879) Osteoarthritis of left knee] Residual Other amnesia Episodic Active ANUEL LEONARD Comm unity codes; Translations: [address] [place] [address] unclassified [ - Memory of [facility] (1 source.) loss R41.3] [place] (48243) Residual Other 04-05-2019 - Episodic Active OSCAR CISNEROS [facility] Via codes; specified MD Tong unclassified postprocedural Hospital - (9 sources.) [facility] (56949) Transient Other 04-11-2016 - Chronic Active Fluid Stone [facility] cerebral transient [id number] [place] [address] Center ischemia (2 cerebral of [facility] sources.) ischemic [place] (57085) attacks and related syndromes Translations: [ Acute anterior circulation transient ischemic attack] Other Pain in left Episodic Active ANUEL Bettsu [place] non-traumatic ankle and [address] [facility] Center joint joints of left of [facility] disorders (1 foot [place] (55440) source.) Translations: [ - Left ankle pain M25.572] Other Pain in left 04-05-2019 - Episodic Active HIPOLITO VASILIY [facility] Via connective leg [place] tissue disease Hospital - (5 sources.) [place] (61238) Other nervous Paresthesia of 04-05-2019 - Episodic Active ELEAZAR S SHO 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 KADE ZAMORA LT , Not Available disease (12 disease (44727) sources.) Disorders of Periapical 04-05-2019 - Episodic Active RACHAEL LIVINGSTON [facility] Via teeth and jaw abscess MD Tong (11 sources.) without sinus Hospital - [place] (81443) Screening and Personal 04-05-2019 - Episodic Active MANJU HASSAN ERS Not Available history of history of , (70589) mental health nicotine and substance dependence abuse codes (20 sources.) Other lower Personal 04-05-2019 - Episodic Active OSCAR CISNEROS , [facility] Via respiratory history of MD Tong disease (6 other diseases Hospital - sources.) of the [place] respiratory (76085) system Other Personal 04-05-2019 - Episodic Active MANJU DASILVA [facility] Via circulatory history of , MD [place] disease (20 transient Hospital - sources.) ischemic [place] attack (TIA), (48267) and cerebral infarction without residual deficits Translations: [ - History of cerebrovascula r accident Z86.73] Pneumonia Pneumonia no information Active JOSÉ MIGUEL [employer] nsion Via (except that (except that [address] [place] caused by caused by Hospital tuberculosis tuberculosis (79157) or sexually or sexually transmitted transmitted disease) (1 disease) source.) Pneumonia Pneumonia, 04-05-2019 - Episodic Active KADE DE LEÓN , Not Available (except that unspecified (43924) caused by organism tuberculosis Translations: or sexually [ - Pneumonia transmitted of both lower disease) (19 lobes due to sources.) infectious organism J18.1, - Pneumonia of left lower lobe due to infectious organism J18.1] Other nervous 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 ANDRES DASILVA [facility] Via system , unspecified , MD [place] disorders (13 Hospital - sources.) [place] (08653) 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 KADE DE LEÓN [facility] Via atherosclerosi coronary MD [place]cia cloud and other angioplasty Hospital - heart disease implant and [place] (16 sources.) graft (76575) Chronic ulcer Pressure ulcer 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 Active ELEAZAR BERKOWITZ [facility] Via of skin (6 of sacral [place] sources.) region, stage Hospital - 2 [place] Translations: (49614) [ Decubitus ulcer of coccyx, stage 2, - Decubitus ulcer of coccyx, stage 2 L89.152] Allergic Radiographic 04-05-2019 - Episodic Active OSCAR CISNEROS , [facility] Via reactions (24 dye allergy MD Tong sources.) status Hospital - Translations: [place] [ ALLERGY (84626) STATUS TO OTH DRUG/MEDS/BIOL SUB] Urinary tract Sepsis due to 04-05-2019 - Episodic Active DUC DASILVA [facility] Via infections (8 urinary tract , MD Tong sources.) infection Hospital - Translations: [place] [ URINARY (65271) TRACT INFECTION, SITE NOT SPECIF] Mycoses (10 Tinea corporis 04-05-2019 - Episodic Active OSCAR AMEZCUA , [facility] Via sources.) Translations: MD [place] [ [facility] [place], - [place] Tinea corporis (84455) B35.4, - Yeast detected B37.9] Other nervous 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 RACHAEL VINCENT , Not Available system neuralgia (22298) disorders (20 sources.) Diabetes Type 2 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 Active RACHAEL THEODORE , [facility] Via mellitus with diabetes MD Tong complications mellitus with Hospital - (20 sources.) diabetic [place] polyneuropathy (41345) Translations: [ TYPE 2 DIABETES W DIABETIC PERIPHERAL AN, TYPE 2 DIABETES MELLITUS WITH DIABETIC N, Type 2 diabetes mellitus with diabetic neuropathy, unspecified whether terminal computer operator insulin use, - Type 2 diabetes mellitus with diabetic neuropathy, unspecified whether terminal computer operator insulin use E11.40] Diabetes Type 2 07-09-2015 - Chronic Active MANJU DASILVA 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 [place] Via codes: Place place in MD Tong of occurrence assisted Hospital - (2 sources.) as the place [place] of occurrence (29359) of the external cause Malaise and Weakness 04-05-2019 - Episodic Active JEREMIAS BERKOWITZ [facility] [place] Via fatigue (4 Alycia sources.) Hospital - [place] (02583) Unclassified no information no information Active JOSÉ MIGUEL LF Via Alycia (9 sources.) [address] [facility] (13421) Past or Other Problems Problem Normalized Date of Normalized Normalized Provider Fac ility Classification Problem(s) Problem Problem Problem Sta tus Onset/Resoluti Duration on Other Abnormal feces 06-02-2009 - Episodic Completed [facility] gastrointestin Translations: [id number] [place] [address] al disorders [ [facility]e [facility] ([facility] sources.) positive [place] ([address]13) stool] 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-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 Completed [facility] codes; Translations: [address] [place] [address] unclassified [ Memory loss] [facility] (2 sources.) [place] ([address]24) 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 Completed [employer] [facility] system Translations: [address] [place] [address] disorders (2 [ Roby palsy] [facility] sources.) [place] ([address]1686) 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 [facility] disorders (1 dysphasia 23806 [facility] source.) Translations: [facility] [ Expressive [place] (75933) aphasia] Other History of 08-05-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 Completed [facility] circulatory cerebrovascula [address] [place], [place] [address]e r disease (2 r accident of [facility] sources.) Translations: [place] (70100) [ History of cerebrovascula r accident] External Home accidents no information no information TYRAFAELE NI ELSEN Not Available Injury - Place , (84863) of occurrence (1 source.) Other [facility] no information no information MANJU DASILVA Not Available aftercare (21 (current) use , (39449) sources.) of oral hypoglycemic drugs Mood disorders Major no information no information KADE ZAMORA LT , Not Available (14 sources.) depressive (76993) disorder, single episode, unspecified Open wounds of Open wound of Episodic Completed SOPHIE WONG Not Available head; neck; tongue and , (78921) and trunk (1 floor of source.) mouth, without mention of complication External Other external no information no information JOSEE NI ELSEN Not Available Injury - cause status , (23046) Unspecified (1 source.) Residual Other no information no information RADHA CAMPA Via codes; specified MD Tong unclassified postprocedural Hospital - (1 source.) [facility] (50456) Disorders of Pure no information no information KADE DE LEÓN , Not Available lipid hypercholester (50934) metabolism (14 olemia, sources.) unspecified Syncope (2 Syncope and 07-23-[address] - [address] [facility] Community sources.) collapse [facility] Translations: [facility] [ Syncopal [place] (61170) episodes] Diabetes Type 2 no information no information RACHAEL THEODORE , Not Available mellitus with diabetes (85492) complications mellitus with (20 sources.) diabetic peripheral angiopathy without gangrene Translations: [ TYPE 2 DIABETES MELLITUS WITH DIABETIC N, TYPE 2 DIABETES MELLITUS WITH DIABETIC P] External Unspecified no information no information SOPHIE LIVINGSTON Not Available Injury - accident , (97620) Natural / Environment (1 source.) Unclassified no information no information no information ABHI TERRELL Not Available (1 source.) , (04448) Procedures Procedure Normalized Procedure Procedure Result Performer Facility Date 05-07-2018 Collection venous no information no name (no phone) [facility] blood venipuncture [facility] (41474) 05-07-2018 Comprehensive no information no name (no phone) [facility] metabolic panel [facility] (78005) 05-07-2018 FQ visit new patient no information no name (no p alexa) [facility] (77324) 05-07-2018 Hemoglobin no information no name (no phone) [facility] glycosylated a1c [facility] (77772) 05-16-2016 INSERT OF MONITOR DEV no information no name (no ph one) [facility] INTO CHEST SUBCU/F [facility] (03145) INSERT OF MONITOR DEV no information no name (no phone) Not Available (71615) INTO CHEST SUBCU/F Immunizations Normalized Immunization Date Notes Care Provider Facili ty Immunization tetanus toxoid, 08-22-2018 no information no name [facility] diphtheria [facility] toxoid, and (41427) acellular pertussis vaccine, adsorbed Results Test Name Value Interpretation Reference Range Date Time Fa cility (Normalized) (Normalized) (Medline Reference) No panel information on null BLO no information (no code) [facility] (00848) Exp date 04/2019 (no code) [facility] (34317) KET 01/2019~turbid~o (no code) [facility] Hea lth range~strong~250 [facility] mg/dL~neg~neg [facility] (74740) BREANNA neg~trace (no code) [facility] (67207) Lot # [id number] (no code) [facility] (98038) Lot # [id number] (no code) [facility] (84474) pH (Bld) 7.0 [pH] (no code) 7.38 - 7.42 [pH] [facility] (58668) Protein (U) trace (no code) [facility] [Mass/Vol] [facility] () SG 1.020 (no code) [facility] (89165) URO 1.0 (no code) [facility] (75447) No panel information on 2019-03-07 Phenytoin 16.5 (N) [facility] [Mass/Vol] [facility] () No panel information on 2019-01-24 Bacteria SEE NOTE (A) [facility] identified Cx [facility] (U) [facility] () No panel information on 2018-09-06 Albumin 4.1 g/dL (N) 3.4 - 5.4 g/dL [facility] [Mass/Vol] [facility] (05467) Albumin/Globulin 1.6 {ratio} (N) 1 - 2.5 {ratio} [facility] [Mass ratio] [facility] (22193) ALP [Catalytic 57 U/L (N) 44 - 147 U/L [facility] activity/Vol] [facility] (25838) ALT [Catalytic 26 U/L (N) 4 - 40 U/L [facility] ealth activity/Vol] [facility] (16164) AST [Catalytic 20 U/L (N) 10 - 34 U/L [facility] activity/Vol] [facility] (09672) Bilirubin 0.6 mg/dL (N) 0.1 - 1.2 mg/dL [facility] [Mass/Vol] [facility] (58761) Calcium 8.7 mg/dL (N) 8.5 - 10.2 mg/dL [facility] [Mass/Vol] [facility] (51993) Chloride 99 mmol/L (N) 95 - 106 mmol/L [facility] [Moles/Vol] [facility] (32222) CO2 [Moles/Vol] 27 mmol/L (N) 23 - 29 mmol/L [facility] (25006) Creatinine 0.70 mg/dL (N) [facility] [Mass/Vol] [facility] (75470) GFR/1.73 sq M 98 (N) 90 - 120 [facility] predicted among mL/min/{1.73_m2} mL/min/{1.73_m2} [facility] blacks MDRD [facility] (S/P/Bld) [Vol (72204) rate/Area] GFR/1.73 sq 85 (N) 90 - 120 [facility] th M.predicted MDRD mL/min/{1.73_m2} mL/min/{1.73_m2} [facility] (S/P/Bld) [Vol [facility] rate/Area] (80213) Globulin (S) 2.5 g/dL (N) 2 - 3.5 g/dL [facility] ealth [Mass/Vol] [facility] (36257) Glucose 202 mg/dL (H) 60 - 125 mg/dL [facility] [Mass/Vol] [facility] (07869) HbA1c (Bld) 6.2 (H) [facility] [Mass fraction] [facility] (24079) Potassium 4.0 mmol/L (N) 3.7 - 5.2 mmol/L [facility] [Moles/Vol] [facility] (36820) Protein 6.6 g/dL (N) 6.4 - 8.3 g/dL [facility] [Mass/Vol] [facility] (59875) Sodium 136 mmol/L (N) 135 - 145 mmol/L [facility] [Moles/Vol] [facility] (26289) Urea nitrogen 11 mg/dL (N) 7 - 20 mg/dL [facility] [Mass/Vol] [facility] (04792) Urea NOT APPLICABLE (no code) [facility] nitrogen/Creatin [facility] [Mass ratio] [facility] (50603) urine urobilinogen measurement by automated test strip (mass/volume) on 2018-06-29 Urobilinogen (U) 0.2 (no code) [place] Via [Mass/Vol] [facility] (72872) urine total bilirubin detection by test strip on 2018-06-29 Bilirubin Ql (U) no information (no code) [place] Via [facility] (40981) urine protein assay by test strip, semi-quantitativ e on 2018-06-29 Protein Ql (U) no information (no code) [place] Via [facility] (51913) urine ph measurement by test strip on 2018-06-29 pH (U) 8.5 [pH] (no code) 4.6 - 8 [pH] [place] Vi a [facility] (39078) urine nitrite detection by test strip on 2018-06-29 Nitrite Ql (U) no information (no code) [place] Via [facility] (47884) urine leukocyte esterase detection by dipstick on 2018-06-29 Leukocyte no information (no code) [place] Via esterase Test [facility] strip Ql (U) (33484) urine ketones detection by automated test strip on 2018-06-29 Ketones Auto no information (no code) [place] Via test strip Ql [facility] (U) (24444) urine glucose detection by automated test strip on 2018-06-29 Glucose Auto 1+ (*) [place] Via test strip Ql [facility] (U) (96735) urine color determination on 2018-06-29 Color (U) YELLOW (no code) [place] [facility] (09247) urine clarity determination on 2018-06-29 Clarity (U) CLEAR (no code) [place] [facility] (92400) squamous epithelial cells detection in urine sediment by light microscopy on 2018-06-29 Epithelial no information (no code) [place] Via cells.squamous [facility] LM Ql (Urine (40890) sed) specific gravity of urine by test strip on 2018-06-29 Specific gravity 1.010 (*) [place] Via (U) [Rel [facility] density] (88931) mucus detection in urine sediment by light microscopy on 2018-06-29 Mucus Ql (Urine no information (no code) [place] Via sed) [facility] (15697) erythrocytes detection in urine sediment by light microscopy on 2018-06-29 RBC Ql (U) no information (no code) [place] Via [facility] (81989) crystals detection in urine sediment by light microscopy on 2018-06-29 Crystals LM Ql NONE (no code) [place] Via (Urine sed) [facility] (10681) complete urinalysis with reflex to culture on 2018-06-29 Urinalysis NO (no code) [place] [facility] complete W [facility] Reflex Culture (61529) panel - Urine casts detection in urine sediment by light microscopy on 2018-06-29 Casts LM Ql NONE (no code) [place] Via (Urine sed) [facility] (42833) bacteria detection in urine sediment by light microscopy on 2018-06-29 Bacteria LM Ql no information (no code) [place] Via (Urine sed) [facility] (89058) automated urine sediment leukocyte count by microscopy (number/high power field) on 2018-06-29 WBC LM.HPF RARE (no code) [place] Via (Urine sed) [facility] [#/Area] (35401) automated urine sediment erythrocyte count by microscopy (number/high power field) on 2018-06-29 RBC LM.HPF NONE (no code) [place] Via (Urine sed) [facility] [#/Area] (51659) No panel information on 2018-05-19 Exp date no information (no code) [facility] Healt h [facility] (30866) No panel information on 2018-05-07 Albumin 4.2 g/dL (N) 3.4 - 5.4 g/dL [facility] [Mass/Vol] [facility] (45604) Albumin/Globulin 1.8 {ratio} (N) 1 - 2.5 {ratio} Comm [facility] [Mass ratio] [facility] (72556) ALP [Catalytic 58 U/L (N) 44 - 147 U/L [facility] activity/Vol] [facility] (71202) ALT [Catalytic 30 U/L (N) 4 - 40 U/L [facility] activity/Vol] [facility] (52340) AST [Catalytic 25 U/L (N) 10 - 34 U/L [facility] activity/Vol] [facility] (75115) Bilirubin 0.5 mg/dL (N) 0.1 - 1.2 mg/dL [facility] [Mass/Vol] [facility] (64388) Calcium 8.9 mg/dL (N) 8.5 - 10.2 mg/dL [facility] [Mass/Vol] [facility] (27843) Chloride 97 mmol/L (L) 95 - 106 mmol/L [facility] [Moles/Vol] [facility] (45547) CO2 [Moles/Vol] 30 mmol/L (N) 23 - 29 mmol/L [facility] (65380) Creatinine 0.72 mg/dL (N) [facility] h [Mass/Vol] [facility] (51491) GFR/1.73 sq M 97 (N) 90 - 120 [facility] predicted among mL/min/{1.73_m2} mL/min/{1.73_m2} [facility] blacks MDRD [facility] (S/P/Bld) [Vol (37318) rate/Area] GFR/1.73 sq 84 (N) 90 - 120 [facility] Heal th M.predicted MDRD mL/min/{1.73_m2} mL/min/{1.73_m2} [facility] (S/P/Bld) [Vol [facility] rate/Area] (58641) Globulin (S) 2.3 g/dL (N) 2 - 3.5 g/dL Community [facility] [Mass/Vol] [facility] (85759) Glucose 180 mg/dL (H) 60 - 125 mg/dL [facility] [Mass/Vol] [facility] (96426) Potassium 4.3 mmol/L (N) 3.7 - 5.2 mmol/L [facility] [Moles/Vol] [facility] (70834) Protein 6.5 g/dL (N) 6.4 - 8.3 g/dL [facility] [Mass/Vol] [facility] (84473) Sodium 134 mmol/L (L) 135 - 145 mmol/L [facility] [Moles/Vol] [facility] (76232) Urea nitrogen 10 mg/dL (N) 7 - 20 mg/dL [facility] [Mass/Vol] [facility] (16150) Urea NOT APPLICABLE (no code) [facility] Healt nitrogen/Creatin [facility] [Mass ratio] [facility] (19324) venous blood hemoglobin measurement (mass/volume) on 2017-11-22 Hemoglobin mass 12.7 g/dL (L) 12.1 - 17.2 g/dL Via [facility]) [facility] (88459) serum or plasma urea nitrogen/creatin ine mass ratio on 2017-11-22 Urea 11 mg/mg (no code) 6 - 22 mg/mg [facility] nitrogen/Creatin [facility] ine mass ratio [place] (97991) serum or plasma urea nitrogen measurement (mass/volume) on 2017-11-22 Urea nitrogen 8 mg/dL (no code) 7 - 20 mg/dL Via [facility] (44768) serum or plasma sodium measurement (moles/volume) on 2017-11-22 Sodium molar 137 mmol/L (no code) 135 - 145 mmol/L Via [facility] (33327) serum or plasma potassium measurement (moles/volume) on 2017-11-22 Potassium molar 3.8 mmol/L (no code) 3.7 - 5.2 mmol/L Via [facility] (26323) serum or plasma glucose measurement (mass/volume) on 2017-11-22 Glucose mass 161 mg/dL (H) 60 - 125 mg/dL Via [facility] (66538) serum or plasma creatinine measurement with calculation of estimated glomerular filtration rate on 2017-11-22 GFR/1.73 sq M no information (no code) Via [facility] vol rate/area () (S/P/Bld) serum or plasma creatinine measurement (mass/volume) on 2017-11-22 Creatinine mass 0.73 mg/dL (no code) Via [facility] () serum or plasma chloride measurement (moles/volume) on 2017-11-22 Chloride molar 108 mmol/L (H) 95 - 106 mmol/L Via [facility] (19926) serum or plasma calcium measurement (mass/volume) on 2017-11-22 Calcium mass 8.1 mg/dL (L) 8.5 - 10.2 mg/dL Via [facility] () serum or plasma anion gap determination (moles/volume) on 2017-11-22 Anion gap 3 8 mmol/L (no code) 3 - 11 mmol/L Via [facility] () carbon dioxide on 2017-11-22 CO2 molar conc 21 mmol/L (no code) 23 - 29 mmol/L Via [facility] () blood neutrophils automated count (number/volume) on 2017-11-22 Neutrophils Auto 4.6 10*3/uL (no code) 1.7 - 7 10*3/uL Via [facility] #/vol (Bld) [facility] () blood monocytes/100 leukocytes on 2017-11-22 Monocytes/100 11 % (no code) 2 - 8 % Via [facility] WBC Auto (Bld) [facility] () blood monocytes automated count (number/volume) on 2017-11-22 Monocytes Auto 0.9 10*3/uL (no code) 0.3 - 0.9 Via [facility] #/vol (Bld) 10*3/uL [facility] (76843) blood lymphocytes automated count (number/volume) on 2017-11-22 Lymphocytes Auto 2.6 10*3/uL (no code) 0.9 - 2.9 Via [place] ti #/vol (Bld) 10*3/uL [facility] () blood leukocytes automated count (number/volume) on 2017-11-22 WBC Auto #/vol 8.3 10*3/uL (no code) 3.5 - 10.5 Via [facility] (Bld) 10*3/uL [facility] () blood lactic acid measurement (moles/volume) on 2017-11-22 Lactate molar 1.04 mmol/L (no code) 0.5 - 2.2 mmol/L Via risti conc [facility] (09164) blood hematocrit (volume fraction) on 2017-11-22 Hematocrit Auto 33 % (L) 36.1 - 50.3 % Via [facility] (Bld) [place] (43877) blood erythrocytes automated count (number/volume) on 2017-11-22 RBC Auto #/vol 3.34 10*6/uL (L) 4.2 - 6.1 Via [place] i (Bld) 10*6/uL [facility] (15356) automated erythrocyte mean corpuscular volume on 2017-11-22 MCV Auto Entitic 99 fL (no code) 80 - 100 fL Via [facility] sti volume (RBC) [facility] (92354) automated erythrocyte mean corpuscular hemoglobin concentration measurement (mass/volume) on 2017-11-22 MCHC Auto mass 38 g/dL (H) 32 - 36 g/dL Via [facility] ti conc (RBC) [facility] (31170) automated erythrocyte mean corpuscular hemoglobin (mass per erythrocyte) on 2017-11-22 MCH Auto Entitic 38 pg (H) 27 - 31 pg Via [facility] ti mass (RBC) [facility] (55401) automated erythrocyte distribution width ratio on 2017-11-22 Erythrocyte 12.2 % (no code) 11.6 - 14.6 % Via [facility] distribution Hospital width Auto Ratio [place] (RBC) (92731) automated eosinophil count on 2017-11-22 Eosinophils Auto 0.2 10*3/uL (no code) 0.05 - 0.5 Via [facility] ti #/vol (Bld) 10*3/uL [facility] (34625) automated blood platelet mean volume measurement on 2017-11-22 Platelet mean 9.2 fL (no code) 7.2 - 11.7 fL Via [facility] ti volume Auto Hospital Entitic volume [place] (Bld) (28320) automated blood platelet count (count/volume) on 2017-11-22 Platelets Auto 195 10*3/uL (no code) 150 - 450 Via [place] #/vol (Bld) 10*3/uL [facility] (39291) automated blood neutrophils/100 leukocytes on 2017-11-22 Neutrophils/100 55 % (no code) 40 - 60 % Via [place] i WBC Auto (Bld) [facility] (43860) automated blood lymphocytes/100 leukocytes on 2017-11-22 Lymphocytes/100 31 % (no code) 20 - 40 % Via [place] i WBC Auto (Bld) [facility] (55929) automated blood eosinophils/100 leukocytes on 2017-11-22 Eosinophils/100 3 % (no code) 1 - 4 % Via [place] i WBC Auto (Bld) [facility] (14380) automated blood basophils/100 leukocytes on 2017-11-22 Basophils/100 0 % (no code) 0.5 - 1 % Via [facility] WBC Auto (Bld) [facility] (43755) automated blood basophil count (count/volume) on 2017-11-22 Basophils Auto 0.0 10*3/uL (no code) 0 - 0.3 10*3/uL Via Ch risti #/vol (Bld) [facility] (36682) Vital Signs Vital Sign Value Interpretation Reference Date Time Care Prov ider Facility (Normalized) (Normalized) Range BMI (Body Mass 31.91 kg/m2 (no code) 15 - 25 kg/m2 05-07-2018 Kamlesh LEONARD [facility]) 11: [address] [place] [address] (68278) Body 96.7 [degF] (no code) 97.8 - 99.0 05-07-2018 ANUEL THOMAS [facility] Temperature [degF] 11: [address] [place] [address] (93280) Body weight 92.44 kg (no code) kg 05-07-2018 [facility] [address] [place] [address] ([id number]) Height 170.2 cm (no code) cm 05-07-2018 ANUELBRIANDA LEONARD [facility] 11: [address] [place] [address] ([id number]) Interventions No Information Plan of Treatment The data below is from unstructured sources Discharge Date 05/04/16 10:32am Disposition 62 DISC/XFER TO IRF Instructions/Education Provided Meliv ng for a Loved One After a Stroke Prescriptions See Medication Section Discharge Date 05/23/16 11:15am Disposition 09 ADMITTED INPATIENT Instructions/Education Provided Melvi ng for a Loved One After a Stroke Forms Provided Rehab Team Conference Summary Prescriptions See Medication Section Additional Instructions/Education Fa ll precautions. Follow up appt with Dr Brizuela [phone] Follow up with Pts Dentist. Care Plan and Goals See Discharge In structions Section Discharge Date 11/22/17 3:16pm Disposition 05 XFER OTHER Instructions/Education Provided Bloo d in the Urine (Hematuria), Adult (DC) Prescriptions See Medication Section Referrals (Unspecified) Entered Date: 11/22/2017 1:39pm Note: APPOINTMENT DR. GOLDEN (PHONE [phone]) Monday11/28/17 @ 3:30 Discharge Date 06/29/18 2:20pm Disposition 01 HOME, SELF-CARE Condition at Discharge Stable Instructions/Education Provided Cons tipation, Adult (DC) Prescriptions See Medication Section Referrals JOSÉ MIGUEL ROSALES MD Order Date: Primary Care Physician Address: [address] [place] [id number] Additional Instructions/Education St ay well hydrated and follow up with Dr. Rosales. Drink more water to help with the constipation Resume all prior medicines and orders. Take Miralax on a daily basis to help with constipation. All discharge instructions reviewed with patient and/or family. Voiced understanding. Activity Details Follow Up [address] Gabriel boyle Reason: Activity Details Follow Up [address] Gabriel yousif. Reason: Goals No Information Social History No Information Functional Status The data below is from unstructured sources Query Response Date Florencio rded Patient Orientation Person Place Situation May 03, 2016 4:05pm Patient Orientation Person Place Time Situation May 04, 2016 9:00am Comprehension Ability Understands Co ncepts May 04, 2016 9:00am Query Response Date Florencio rded Patient Orientation Unable to Assess May 23, 2016 11:14am Patient Orientation Person Place Time Situation Non-Verbal/Aphasic May 23, 2016 9:00am Comprehension Ability Understands Co ncepts May 23, 2016 9:00am Query Response Date Florencio rded Comprehension Ability Understands Co ncepts November 22, 2017 8:00am Mental Status No Information Encounters Encounter Normalized Encounter Encounter Diagnosis Care Provi arcenio Organization Date Type 10-10-2018 [facility] Contusion of left JOSÉ MIGUEL SE LF (no [facility] - upper arm, initial phone) (no phone) 10-10-2018 encounter - 10-10-2018 08-24-2018 [facility] Localized edema JOSÉ MIGUEL SELF ([facility] - phone) (no phone) 08-24-2018 - 08-24-2018 [facility] Acute upper ANUEL LEONARD (n o [facility] - respiratory infection, phone) (no johnny ne) 05-14-2018 unspecified - 05-14-2018 05-07-2018 [facility] 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) (no phone) 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 05-07-2018 12-29-2018 [facility] Pain in left ankle and AUBREY ELAM [facility] IN CARE joints of left foot phone) IN CARE (n o phone) 05-19-2018 [facility] Lobar pneumonia, GLADISRORY ZENDEJAS (no [facility] - IN CARE unspecified organism phone) IN [place] RE (no phone) 05-19-2018 - 05-19-2018 11-27-2017 [facility] no information Doctor Migrati on (no [facility] - phone) (no phone) 11-27-2017 - 11-27-2017 11-24-2017 [facility] no information Doctor Migrati on (no [facility] - phone) (no phone) 11-24-2017 - 11-24-2017 11-22-2017 [facility] no information Doctor Migrati on (no [facility] - phone) (no phone) 11-22-2017 - 11-22-2017 11-21-2017 [facility] no information Doctor Migrati on (no [facility] - phone) (no phone) 11-21-2017 - 11-21-2017 11-06-2017 [facility] no information Doctor Migrati on (no [facility] - phone) (no phone) 11-06-2017 - 11-06-2017 01-24-2019 Consultation for Urgency of urination JOSÉ MIGUEL SELF (no [facility] laboratory medicine phone) (no phone) 09-06-2018 Consultation for Type 2 diabetes JOSÉ MIGUEL SELF (no [facility] - laboratory medicine mellitus without phone) ( no phone) 09-06-2018 complications - 09-06-2018 02-22-[address] [facility] Type 2 diabetes JOSÉ MIGUEL SELF ( no [facility] Care Unit mellitus with diabetic phone) Care Un it (no phone) neuropathy, unspecified 01-04-2019 [facility] Anxiety disorder, JOSÉ MIGUEL SELF (no [facility] unspecified phone) Care Unit (no p alexa) 12-07-2018 [facility] Other amnesia JOSÉ MIGUEL SELF (no [facility] phone) Care Unit (no phone ) 04-05-2019 Emergency department no information KEY BERMUDEZ MD (no [facility] - patient visit phone) [facility] 04-05-2019 (no phone) 08-22-2018 Emergency department no information no name (no johnny ne) no organization name - patient visit (no phone) 08-22-2018 08-22-2018 Emergency department no information HIPOLITO CHAMORRO (no [facility] - patient visit phone) [facility] 08-22-2018 (no phone) 07-10-2018 Emergency department no information no name (no johnny ne) no organization name patient visit (no phone) 07-10-2018 Emergency department no information JEREMIAS BERKOWITZ MD (no [facility] - patient visit phone) [facility] 07-10-2018 (no phone) 06-29-2018 Emergency department no information OSCAR mcpherson no organization name - patient visit (no phone ) 06-29-2018 06-29-2018 Emergency department no information OSCAR Bueno (no [facility] - patient visit phone) [facility] 06-29-2018 (no phone) 05-19-2018 Emergency department no information no name (no johnny ne) no organization name patient visit (no phone) 05-02-2016 Emergency department no information no name (no johnny ne) no organization name patient visit (no phone) 01-16-2011 Emergency department no information no name (no johnny ne) no organization name - patient visit (no phone) 01-16-2011 05-20-2018 Evaluation and no information no name (no phone) n o organization name - management of (no phone) 05-22-2018 inpatient 05-19-2018 Evaluation and no information KADE DE LEÓN MD (no [facility] - management of phone) [facility] 05-22-2018 inpatient (no phone) 11-22-2017 Evaluation and no information MANJU DASILVA Work no organization name - management of (no phone ) 11-22-2017 inpatient 11-21-2017 Evaluation and no information MANJU DASILVA MD (n o [facility] - management of phone) [facility] 11-22-2017 inpatient (no phone) 05-04-2016 Evaluation and no information RACHAEL THEODORE MD (no [facility] - management of phone) [facility] 05-23-2016 inpatient (no phone) 05-02-2016 Evaluation and no information MANJU DASILVA MD (n o [facility] - management of phone) [facility] 05-04-2016 inpatient (no phone) 07-23-2018 Follow-up encounter Anxiety disorder, JOSÉ MIGUEL SELF (no [facility] - unspecified phone) (no phone) 07-23-2018 - 07-23-2018 05-29-2018 Follow-up encounter Lobar pneumonia, JOSÉ MIGUEL SELF ( no [facility] - unspecified organism phone) (no phone ) 05-29-2018 - 05-29-2018 11-22-2017 Patient encounter no information no name (no phone) no organization name - (no phone) 11-22-2017 07-20-2016 Patient encounter no information no name (no phone) no organization name (no phone) 08-14-2008 Patient encounter no information no name (no phone) no organization name - (no phone) 08-15-2008 04-10-2019 Patient encounter no information (no phone) [facility] (no phone) 04-05-2019 Patient encounter no information KEY BERMUDEZ MD (no [facility] procedure phone) [facility] (no phone) 03-29-2019 Patient encounter no information JOSÉ MIGUEL Dodd SELF (no [facility] procedure phone) [facility] (no phone) 03-07-2019 Patient encounter no information no name (no phone) no organization name procedure (no phone) 02-22-2019 Patient encounter no information no name (no phone) no organization name procedure (no phone) 01-24-2019 Patient encounter no information no name (no phone) no organization name procedure (no phone) 12-29-2018 Patient encounter no information no name (no phone) no organization name procedure (no phone) 10-08-2018 Patient encounter no information no name (no phone) no organization name procedure (no phone) 10-08-2018 Patient encounter no information JOSÉ MIGUEL ROSALES MD (n o [facility] procedure phone) [facility] (no phone) 09-06-2018 Patient encounter no information no name (no phone) no organization name procedure (no phone) 09-06-2018 Patient encounter no information no name (no phone) no organization name procedure (no phone) 08-24-2018 Patient encounter no information no name (no phone) no organization name procedure (no phone) 08-22-2018 Patient encounter no information no name (no phone) no organization name procedure (no phone) 07-23-2018 Patient encounter no information no name (no phone) no organization name procedure (no phone) 07-10-2018 Patient encounter no information no name (no phone) no organization name procedure (no phone) 07-07-2018 Patient encounter no information no name (no phone) no organization name procedure (no phone) 07-07-2018 Patient encounter no information TASNEEM MARTINEZ MD (no [facility] procedure phone) [facility] (no phone) 06-29-2018 Patient encounter no information no name (no phone) no organization name procedure (no phone) 05-29-2018 Patient encounter no information no name (no phone) no organization name procedure (no phone) 05-20-2018 Patient encounter no information no name (no phone) no organization name - procedure (no phone) 05-22-2018 05-19-2018 Patient encounter no information no name (no phone) no organization name procedure (no phone) 05-07-2018 Patient encounter no information no name (no phone) no organization name procedure (no phone) 05-02-2016 Patient encounter no information no name (no phone) no organization name - procedure (no phone) 05-04-2016 Patient encounter no information no name (no phone) no organ ization name procedure (no phone) 02-27-2019 Telephone encounter no information JOSÉ MIGUEL SELF (no [facility] phone) (no phone) 02-25-2019 Telephone encounter Anxiety disorder, JOSÉ MIGUEL SELF (no [facility] unspecified phone) (no phone) 02-21-2019 Telephone encounter no information JOSÉ MIGUEL SELF (no [facility] - phone) (no phone) 02-21-2019 - 02-21-2019 02-14-2019 Telephone encounter no information JOSÉ MIGUEL SELF (no [facility] phone) (no phone) 02-09-2019 Telephone encounter no information JOSÉ MIGUEL SELF (no [facility] phone) (no phone) 01-31-2019 Telephone encounter no information JOSÉ MIGUEL SELF (no [facility] phone) (no phone) 01-24-2019 Telephone encounter Urgency of urination JOSÉ MIGUEL SE LF (no [facility] - phone) (no phone) 01-24-2019 - 01-24-2019 01-02-2019 Telephone encounter no information JOSÉ MIGUEL SELF (no [facility] phone) (no phone) 12-28-2018 Telephone encounter no information JOSÉ MIGUEL SELF (no [facility] - phone) (no phone) 12-28-2018 - 12-28-2018 12-26-2018 Telephone encounter Lobar pneumonia, JOSÉ MIGUEL SELF ( no [facility] unspecified organism phone) (no phone) 11-13-2018 Telephone encounter no information JOSÉ MIGUEL SELF (no [facility] phone) (no phone) 11-12-2018 Telephone encounter no information JOSÉ MIGUEL SELF (no [facility] phone) (no phone) 10-24-2018 Telephone encounter no information JOSÉ MIGUEL SELF (no [facility] phone) (no phone) 10-10-2018 Telephone encounter no information JOSÉ MIGUEL SELF (no [facility] - phone) (no phone) 10-10-2018 - 10-10-2018 10-08-2018 Telephone encounter Urgency of urination JOSÉ MIGUEL SE LF (no [facility] - phone) (no phone) 10-08-2018 - 10-08-2018 10-05-2018 Telephone encounter no information JOSÉ MIGUEL SELF (no [facility] - phone) (no phone) 10-05-2018 - 10-05-2018 09-21-2018 Telephone encounter no information JOSÉ MIGUEL SELF (no [facility] - phone) (no phone) 09-21-2018 - 09-21-2018 09-13-2018 Telephone encounter no information JOSÉ MIGUEL SELF (no [facility] - phone) (no phone) 09-13-2018 - 09-13-2018 08-10-2018 Telephone encounter no information JOSÉ MIGUEL SELF (no [facility] - phone) (no phone) 08-10-2018 - 08-10-2018 08-08-2018 Telephone encounter no information JOSÉ MIGUEL SELF (no [facility] - phone) (no phone) 08-08-2018 - 08-08-2018 07-31-2018 Telephone encounter Anxiety disorder, JOSÉ MIGUEL SELF (no [facility] - unspecified phone) (no phone) 07-31-2018 - 07-31-2018 07-25-2018 Telephone encounter no information JOSÉ MIGUEL SELF (no [facility] - phone) (no phone) 07-25-2018 - 07-25-2018 07-24-2018 Telephone encounter Anxiety disorder, JOSÉ MIGUEL SELF (no [facility] - unspecified phone) (no phone) 07-24-2018 - 07-24-2018 07-13-2018 Telephone encounter no information JOSÉ MIGUEL SELF (no [facility] - phone) (no phone) 07-13-2018 - 07-13-2018 07-12-2018 Telephone encounter no information JOSÉ MIGUEL SELF (no [facility] - phone) (no phone) 07-12-2018 - 07-12-2018 07-11-2018 Telephone encounter no information JOSÉ MIGUEL SELF (no [facility] - phone) (no phone) 07-11-2018 - 07-11-2018 07-07-2018 Telephone encounter no information JOSÉ MIGUEL SELF [facility] ([facility] phone) 07-07-2018 - 07-07-2018 07-03-2018 Telephone encounter no information JOSÉ MIGUEL SELF (no [facility] - phone) (no phone) 07-03-2018 - 07-03-2018 06-01-2018 Telephone encounter no information JOSÉ MIGUEL SELF (no [facility] - phone) (no phone) 06-01-2018 - 06-01-2018 05-31-2018 Telephone encounter no information JOSÉ MIGUEL SELF (no [facility] - phone) (no phone) 05-31-2018 - 05-31-2018 05-18-2018 Telephone encounter no information JOSÉ MIGUEL SELF (no [facility] - phone) (no phone) 05-18-2018 - 05-18-2018 05-04-2018 Telephone encounter no information JOSÉ MIGUEL SELF (no [facility] - phone) (no phone) 05-04-2018 - 05-04-2018 2018 Telephone encounter no information Doctor Migration ([facility] (no phone) 2018 - 2018 Medical Equipment No Information Payers Normalized Payer Value Medicare [id number] ([id number]) History general Narrative - Reported Note Type Note Facility History general Narrative - Reported Type Medical Coronary atherosclerosis History Medical Heme positive stool History Medical Expressive aphasia History Medical Syncopal episodes History Medical SOPHIE on CPAP History Medical Pure hypercholesterolemia History Medical History of cerebrovascular accident History Medical DM (diabetes mellitus), typ e 2 History Medical Acute anterior circulation transient ischemic attack History Medical Osteoarthritis of left knee History Medical Cerebrovascular accident ([facility]) History Medical 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 History Medical 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 Essential hypertension History Medical Obesity History Medical Memory loss History Medical 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 History Medical Constipation, unspecified c onstipation type History Surgical cardiac stent History [facility] ([id number]) Advance Directives Directive Response Recor ded Date/Time Advance Directives Yes 0 05/02/16 6:33pm Health Care Power of Spring Coiling Machine Setter Yes 05/02/16 6:33pm Organ Donor No 05/02/16 6:33pm Resuscitation Status Full Code 05/02/16 6:33pm Directive Response Recor ded Date/Time Advance Directives Yes 0 05/04/16 11:55am Health Care Power of Spring Coiling Machine Setter Yes 05/04/16 11:55am Organ Donor No 05/04/16 11:55am Resuscitation Status Full Code 05/04/16 11:55am Directive Response Recor ded Date/Time Advance Directives No 10 /09/18 11:50pm Health Care Power of Spring Coiling Machine Setter Y Angela obando (daughter) 11/21/17 11:50pm Organ Donor No 11/21/17 11:50pm Resuscitation Status Full Code 11/21/17 11:50pm Directive Response Recor ded Date/Time Advance Directives No 10:15am Health Care Power of Spring Coiling Machine Setter Y Angela obando (daughter) 11/21/17 11:50pm Organ Donor No 11/21/17 11:50pm Resuscitation Status Full Code 06/29/18 10:15am Discharge Instructions No hospital discharge instruction information available. 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 Chief Complaint and Reason for Visit Chief Complaint Abdominal/GI Problem s Reason for Visit Tinea corporis Constipation Additional Source Comments This clinical document has been generated using Anchor™ software that has been certified by the Office of the National Coordinator for Health Information Technology (ONC 15.99.04.3023.[id number].[id number]) and the National Committee for Pig Casting Machine Operator (NCQA, as an eMeasure certified technology). FOR RECORDS PERTAINING TO PATIENTS WHO ARE OR HAVE BEEN ENROLLED IN A CHEMICAL D EPENDENCY/SUBSTANCE ABUSE PROGRAM, SOME INFORMATION MAY BE OMITTED. This clinica l summary was aggregated from multiple sources. Caution should be exercised in using it in the provision of clinical care. This summary normalizes information from multiple sources, and as a consequence, information in this document may ma terially change the coding, format and clinical context of patient data. In estefania tion, data may be omitted in some cases. CLINICAL DECISIONS SHOULD BE BASED ON T HE PRIMARY CLINICAL RECORDS. [employer] provides no warranty or guara ntee of the accuracy or completeness of information in this document.The followi ng information is based on time limited clinical information UNRECOGNIZED CONTENT PROVIDED BELOW FOR UNRECOGNIZED SECTION REASON FOR VISIT Requesting appt.swelling in feet, sore on Rt ankle,x 1 week. decreased appetite started over the weekend. Kcox MA, Constipation has been on going little relief from miralax.Kcox MA UNRECOGNIZED CONTENT PROVIDED BELOW FOR UNRECOGNIZED SECTION MEDICAL (GENERAL) HISTORY Type Description Date Medical History Coronary atherosclerosis Medical History Heme positive stool Medical History Expressive aphasia Medical History Syncopal episodes Medical History SOPHIE on CPAP Medical History Pure hypercholesterolemia Medical History History of cerebrova scular accident Medical History DM (diabetes mellitu s), type 2 Medical History Acute anterior circu lation transient ischemic attack Medical History Osteoarthritis of left kne e Medical History Cerebrovascular acci dent (CVA) Medical History 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
--- OUTSIDE RECORDS SUMMARY | 2019-06-11 09:59 | XMS REPORT ---
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 Nov, Active 262107351 Problem Occlusion and stenosis of carotid artery with ce rebral infarction I63.239 Mar, Active 61915687258845 Problem Memory loss R41.3 Mar, Active 42883 000 Problem Cerebrovascular accident (CVA) I63.9 08 July, 2 017 Active 575473110 Problem Essential hypertension I10 Active 96526744 Problem Obesity E66.9 Aug, Active 0591227 01 Problem SOPHIE on CPAP G47.33 14 Aug, 2008 Active 37048 009 Problem Acute anterior circulation transient ischemic attack G45.8 Mar, Active Problem Pure hypercholesterolemia E78.00 Acti ve 579805152 Problem Osteoarthritis of left knee M17.12 13 Dec, 2011 Active 137335026 Problem Coronary atherosclerosis I25.10 Activ e 881328077 Problem Heme positive stool R19.5 May, Active 017774004 Problem Constipation, unspecified constipation type K59.00 Active 18726542 Problem Decubitus ulcer of coccyx, stage 2 L89.152 Active 270469121 Problem Expressive aphasia R47.01 Jul, Active 048934535 Problem History of cerebrovascular accident Z86.73 23 J , 2016 Active 907464534 Problem Type 2 diabetes mellitus wit h diabetic neuropathy, unspecified whether snf insulin use E11.40 Active 211555 567292531 Problem Syncopal episodes R55 10 Jul, 2013 Active 123115827 Problem DM (diabetes mellitus), type 2 E11.9 08 July, 2 016 Active 08847136 Problem [place] palsy G51.0 Aug, Active 38756 3009 Problem 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 Active 090056177 Problem Anxiety F41.9 Active 46925650 Problem Essential (primary) hypertension I10 Active 75716209 Problem 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 Active 889600542 ALLERGIES Substance Reaction Event Type Date Status DONEPEZIL HCL Unknown Drug Allergy Apr, Active IODINATED CONTRAST- ORAL AND IV DYE Dizziness Non Drug Allergy 2 5 Apr, 2018 Active DAPAGLIFLOZIN Unknown Non Drug Allergy Apr, Active ENCOUNTERS Encounter Location Date Diagnosis [address] [place] [address] Feb, [address] [place] [address] Feb, Anxiety F41.9 [facility] [address] [place] [address] 10 Feb, 2019 Type 2 diabetes mellitus with diabetic n europathy, unspecified whether snf insulin use E11.40 ; Essential (primary) hypertension I10 ; Decubitus ulcer of coccyx, stage 2 L89.152 and Yeast detected B37.[address] [place] [address] Feb, [facility] [address] [id number] [place] [address] Feb, [address] [place] [address] Feb, [address] [place] [address] Jan, [address] [place] [address] Jan, [address] [place] [address] Jan, [address] [place] [address] Jan, Urgency of urination R39.[address] [place] [address] Jan, Urgency of urination R39.15 [facility] [address] [place] [address] Dec, Anxiety F41.9 ; Pedal edema R60.0 and Ap hasia following cerebral infarction I69.[address] [place] [address] Dec, [facility] [address] [place] [address] Dec, Left ankle pain M25.[address] [place] [address] Dec, [address] [place] [address] Dec, [address] [place] [address] Dec, Pneumonia of left lower lobe due to infectious organism J18.1 and Anxiety F41.9 [facility] [address] [place] [address] Nov, Memory loss R41.3 ; Coronary atheroscler osis I25.10 ; 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 and History of cerebrovascular accident Z86.[address] [place] [address] Nov, [address] [place] [address] Oct, [address] [place] [address] Oct, [address] [place] [address] Sep, [address] [place] [address] Sep, Contusion of left upper extr emity, initial encounter S40.022A [address] [place] [address] Sep, Urgency of urination R39.15 [facility] [address] [place] [address] Sep, [facility] [address] [place] [address] Sep, [facility] [place] [address] [place] [address] Sep, [facility] [address] [place] [address] Aug, DM (diabetes mellitus), type 2 E11.9 and Essential (primary) hypertension I10 [facility] [address] [place] [address] Aug, Lower leg edema R60.0 ; DM ( diabetes mellitus), type 2 E11.9 and History of cerebrovascular accident Z86.73 [facility] [place] [address] [place] [address] Jul, [facility] [address] [place] [address] Jul, [facility] [address] [place] [address] Jul, [facility] [place] [address] [place] [address] Jul, Anxiety F41.9 [facility] [place] [address] [place] [address] Jul, [facility] [place] [address] [place] [address] Jul, Anxiety F41.[address] [place] [address] Jul, Anxiety F41.9 ; Tinea corpor is B35.4 and Morbid obesity E66.01 [facility] [place] [address] [place] [address] June, [facility] [place] [address] [place] [address] June, [facility] [address] [place] [address] June, [facility] [address] [place] [address] June, [facility] [address] [place] [address] June, [facility] [address] [id number] [place] [address] June, [facility] [facility] [address] [place] [address] June, [facility] [facility] [address] [place] [address] May, [facility] [address] [place] [address] May, [facility] [address] [place] [address] May, Pneumonia of both lower lobe s due to infectious organism J18.1 and Morbid obesity E66.01 [facility] [address] [place] [address] May, Pneumonia of left lower lobe due to infectious organism J18.1 ; Cough R05 and Fever, unspecified fever cause R50.9 [facility] [address] [place] [address] May, [facility] [address] [place] [address] May, Viral upper respiratory trac t infection J06.9 and Skin lesion L98.9 [facility] [address] [place] [address] Apr, Cerebral infarction due to e mbolism of unspecified carotid artery I63.139 ; Lower leg edema R60.0 ; Constipation, unspecified constipation type K59.00 and Skin lesion L98.9 [facility] [place] [address] [place] [address] Apr, [facility] [id number] [place] [address] Jan, [facility] [address] [address] Nov, [facility] [address] [address] Nov, [facility] [address] [address] Nov, [facility] [address] [address] Nov, [facility] [address] [address] Oct, IMMUNIZATIONS No Known Immunizations SOCIAL HISTORY Never Assessed REASON FOR VISIT swelling in feet, sore on Rt ankle,x 1 week. decreased appetite started over the weekend. Carine BARAJAS, Constipation has been on going little relief from miralax.Carine BARAJAS PLAN OF CARE Activity Details Follow Up [address] Gabriel rodriguez. Reason: VITAL SIGNS Height 67.1408028 in 2018-05-07 Weight 203.8 lbs 2018-05-07 Temperature 96.7 degrees Fahrenheit 2018-05-07 Heart Rate 61 bpm 2018-05-07 Respiratory Rate 18 2018-05-07 BMI 31.91 kg/m2 2018-05-07 Blood pressure systolic 126 mmHg 2018-05-07 Blood pressure diastolic 66 mmHg 2018-05-07 MEDICATIONS Medication Instructions Dosage Frequency Start Date End Date Duration S tatus Nystatin 109307 UNIT/GM Nov, Unknown Trazodone HCl 150 MG Oct, Active [place] 5-Hzk-Msu-Fish Oil 1,000 Mg (120 Mg-180 Mg) Capsule 1999Jan, Active Cyanocobalamin (Vit B-12) 2,500 McG Chewable Tablet Active Citalopram Hydrobromide 20 MG Jul, Unknown Polyethylene Glycol 3350 - Sep, Unknown Carboxymethylcellulose Sodium 0.5 % Eye Drops Unknown Donepezil HCl 10 MG Sep, Active Fluticasone Propionate 50 MCG/ACT Nov, Unknown Metformin HCl 500 MG Jul, Active Simvastatin 20 MG Active Codeine 10 Mg-Guaifenesin 100 Mg/5 Ml Oral Liquid 10 Dec, Unknown Phenytoin Sodium Extended 100 Mg Capsule 200 Unknown Loratadine 10 MG Nov, Ac tive Tramadol HCl 50 MG Jul, Active Finasteride 5 MG Unknown GlyBURIDE 5 MG Mar, Unkn own Ciprofloxacin HCl 0.3 % Aug, Unknown Clopidogrel Bisulfate 75 MG Jul, Active Doxazosin 4 Mg Tablet 4 Unknown Betamethasone Sod Phos & Acet 6 (3-3) MG/ML 31 M 2017 Unknown Hydrocodone-Acetaminophen 5-325 MG Sep, Active Loratadine 10 TAKE 1 TABLET (10 MG) BY MOUTH DAILY. Not-Taking Aspirin 81 MG Active RESULTS No Results PROCEDURES Procedure Date Ordered Result Body Site [facility] VISIT NEW PATIENT May 07, 2018 VENIPUNCT, ROUTINE* May 07, 2018 COMPREHEN METABOLIC PANEL May 07, 2018 Hemoglobin Test Send Out 0 dollar May 07, 2018 INSTRUCTIONS MEDICATIONS ADMINISTERED No Known Medications MEDICAL (GENERAL) HISTORY Type Description Date Medical History Coronary atherosclerosis Medical History Heme positive stool Medical History Expressive aphasia Medical History Syncopal episodes Medical History SOPHIE on CPAP Medical History Pure hypercholesterolemia Medical History History of cerebrovascular accident Medical History DM (diabetes mellitus), type 2 Medical History Acute anterior circulation transient isc hemic attack Medical History Osteoarthritis of left knee Medical History Cerebrovascular accident (CVA) Medical History Aphasia as late effect of stroke Medical History Occlusion and stenosis of ca rotid artery with cerebral infarction Medical History [place] palsy Medical History Essential hypertension Medical History Obesity Medical History Memory loss Medical History Cerebral infarction due to e mbolism of unspecified carotid artery Medical History Constipation, unspecified constipation t ype Surgical History cardiac stent
--- OUTSIDE RECORDS SUMMARY | 2019-06-11 09:59 | XMS REPORT ---
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 Mar, Active 28625189622286 Problem Osteoarthritis of left knee M17.12 13 Dec, 2011 Active 631017909 Problem Cerebrovascular accident (CVA) I63.9 08 July, 2 017 Active 136722666 Problem DM (diabetes mellitus), type 2 E11.9 08 July, 2 016 Active 58536479 Problem Acute anterior circulation transient ischemic attack G45.8 Mar, Active Problem SOPHIE on CPAP G47.33 14 Aug, 2008 Active 39947 009 Problem Syncopal episodes R55 10 Jul, 2013 Active 025174076 Problem Expressive aphasia R47.01 Jul, Active 838254393 Problem Anxiety F41.9 Active 97126009 Problem Pure hypercholesterolemia E78.00 Acti ve 410258258 Problem Memory loss R41.3 Mar, Active 93041 000 Problem Essential (primary) hypertension I10 Active 88930572 Problem History of cerebrovascular accident Z86.73 23 J , 2016 Active 196232419 Problem Obesity E66.9 Aug, Active 4677345 01 Problem Coronary atherosclerosis I25.10 Activ e 579181134 Problem Heme positive stool R19.5 May, Active 683271073 Problem Constipation, unspecified constipation type K59.00 Active 06352059 Problem 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 Active 686233262 ALLERGIES No Information ENCOUNTERS Encounter Location Date Diagnosis [facility] [address] [address] Sep, [facility] [address] [address] Sep, Contusion of left upper extremity, initi al encounter S40.022A [facility] [address] [address] Sep, Urgency of urination R39.15 [facility] [address] [address] Sep, [facility] [address] [address] Sep, [address] [address] Sep, [address] [address] Aug, DM (diabetes mellitus), type 2 E11.9 and Essential (primary) hypertension I10 [address] [address] Aug, Lower leg edema R60.0 ; DM (diabetes milka litus), type 2 E11.9 and History of cerebrovascular accident Z86.73 [facility] [address] [address] Jul, [address] [address] Jul, [address] [address] Jul, [address] [address] Jul, Anxiety F41.[address] [address] Jul, [address] [address] Jul, Anxiety F41.[address] [address] Jul, Anxiety F41.9 ; Tinea corporis B35.4 and Morbid obesity E66.[address] [place] [address] June, [facility] [address] [place] [address] June, [facility] [address] [address] June, [facility] [address] [place] [address] June, [facility] [address] [address] June, [facility] [address] [facility] [id number] [place] [address] June, [facility] [address] [address] June, [address] [place] [address] May, [facility] [address] [address] May, [address] [address] May, Pneumonia of both lower lobes due to inf ectious organism J18.1 and Morbid obesity E66.01 [facility] [address] [place] [address] May, Pneumonia of left lower lobe due to infe ctious organism J18.1 ; Cough R05 and Fever, unspecified fever cause R50.9 [facility] [address] [address] May, [facility] [address] [address] May, Viral upper respiratory tract infection J06.9 and Skin lesion L98.[address] [address] Apr, Cerebral infarction due to embolism of u nspecified carotid artery I63.139 ; Lower leg edema R60.0 ; Constipation, unspecified constipation type K59.00 and Skin lesion L98.9 [facility] [address] [address] Apr, [facility] [address] [facility] [id number] [address] [place] [address] Jan, [facility] [address] [id number] [address] [place] [address] Nov, [facility] [address] [facility] [id number] [address] [place] [address] Nov, [facility] [address] [facility] [id number] [address] [place] [address] Nov, [facility] [address] [facility] [id number] [address] [place] [address] Nov, [facility] [address] [facility] [id number] [address] [place] [address] Oct, IMMUNIZATIONS No Known Immunizations SOCIAL HISTORY Never Assessed REASON FOR VISIT Requesting appt. PLAN OF CARE VITAL SIGNS MEDICATIONS Unknown Medications RESULTS No Results PROCEDURES No Known procedures INSTRUCTIONS MEDICATIONS ADMINISTERED No Known Medications MEDICAL [...] rotid artery with cerebral infarction Medical History [place] palsy Medical History Essential hypertension Medical History Obesity Medical History Memory loss Medical History Cerebral infarction due to e mbolism of unspecified carotid artery Medical History Constipation, unspecified constipation t ype Surgical History cardiac stent
--- OUTSIDE RECORDS SUMMARY | 2019-06-11 10:00 | XMS REPORT | Continuity of Care Document ---
Author Organization Unknown Address Unknown Phone Unavailable Allergies Active Description Code Type Severity Reaction Onset Reported/Identified Relationship to Patient Clinical Status Yes No Known Drug Allergies [id number] Drug Allergy Unknown N/A 01/16/2011 Yes dapagliflozin [id number] [place] g Allergy Unknown N/A 11/22/2017 Yes donepezil [id number] Drug Allergy Unknown N/A 11/22/2017 Yes iodine [id number] Drug Allergy Unknown N/A 11/22/2017 Medications There is no data. 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 05/04/2016 MANJU DASILVA MD Ot I69.320 APHASIA FOLLOWING CEREBRAL INFARCTION 05/04/2016 MANJU DASILVA MD Ot I69.391 DYSPHAGIA FOLLOWING CEREBRAL INFARCTION 05/04/2016 MANJU DASILVA MD Ot Z79.84 JAIL (CURRENT) USE OF ORAL HYPOGLYC 05/11/2016 RACHAEL THEODORE MD Ot 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 05/11/2016 RACHAEL THEODORE MD Ot I10 ESSENTIAL (PRIMARY) HYPERTENSION 05/11/2016 RACHAEL THEODORE MD Ot I25.1 0 ATHSCL HEART DISEASE OF [place] CORONARY 05/11/2016 THEODORE MD, RACHAEL E Ot I25.2 OLD MYOCARDIAL INFARCTION 05/11/2016 RACHAEL THEODORE MD E Ot 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 05/11/2016 RACHAEL THEODORE MD E Ot 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 05/11/2016 RACHAEL THEODORE MD E Ot Z79.8 4 JAIL (CURRENT) USE OF ORAL HYPOGLYC 05/11/2016 RACHAEL THEODORE MD E Ot 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 05/11/2016 RACHAEL THEODORE MD E Ot I10 ESSENTIAL (PRIMARY) HYPERTENSION 05/11/2016 RACHAEL THEODORE MD E Ot I25.1 0 ATHSCL HEART DISEASE OF [place] CORONARY 05/11/2016 RACHAEL THEODORE MD Ot I25.2 OLD MYOCARDIAL INFARCTION 05/11/2016 RACHAEL THEODORE MD E Ot 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 05/11/2016 RACHAEL THEODORE MD E Ot 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 05/11/2016 RACHAEL THEODORE MD E Ot Z79.8 4 JAIL (CURRENT) USE OF ORAL HYPOGLYC 05/16/2016 RACHAEL THEODORE MD E Ot 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 05/16/2016 RACHAEL THEODORE MD E Ot I10 ESSENTIAL (PRIMARY) HYPERTENSION 05/16/2016 RACHAEL THEODORE MD E Ot I25.1 0 ATHSCL HEART DISEASE OF [place] CORONARY 05/16/2016 RACHAEL THEODORE MD E Ot I25.2 OLD MYOCARDIAL INFARCTION 05/16/2016 RACHAEL THEODORE MD E Ot 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 05/16/2016 RACHAEL THEODROE MD E Ot 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 05/16/2016 RACHAEL THEODORE MD E Ot Z79.8 4 CONTROLLER COAL OR ORE (CURRENT) USE OF ORAL HYPOGLYC 05/18/2016 RACHAEL THEODORE MD E Ot 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 05/18/2016 RACHAEL THEODORE MD E Ot I10 ESSENTIAL (PRIMARY) HYPERTENSION 05/18/2016 RACHAEL THEODORE MD E Ot I25.1 0 ATHSCL HEART DISEASE OF [place] CORONARY 05/18/2016 RACHAEL THEODORE MD E Ot I25.2 OLD MYOCARDIAL INFARCTION 05/18/2016 RACHAEL THEODORE MD E Ot 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 05/18/2016 RACHAEL THEODORE MD E Ot 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 05/18/2016 RACHAEL THEODORE MD E Ot 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 05/18/2016 RACHAEL THEODORE MD Ot Z79.8 4 CONTROLLER COAL OR ORE (CURRENT) USE OF ORAL HYPOGLYC 05/18/2016 RACHAEL THEODORE MD Ot 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 05/18/2016 RACHAEL THEODORE MD Ot I10 ESSENTIAL (PRIMARY) HYPERTENSION 05/18/2016 RACHAEL THEODORE MD Ot I25.1 0 ATHSCL HEART DISEASE OF [place] CORONARY 05/18/2016 RACHAEL THEODORE MD Ot I25.2 OLD MYOCARDIAL INFARCTION 05/18/2016 RACHAEL THEODORE MD Ot 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 05/18/2016 RACHAEL THEODORE MD Ot 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 05/18/2016 RACHAEL THEODORE MD Ot 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 05/18/2016 RACHAEL THEODORE MD Ot Z79.8 4 JAIL (CURRENT) USE OF ORAL HYPOGLYC 05/23/2016 RACHAEL THEODORE MD Ot 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 05/23/2016 RACHAEL THEODORE MD Ot E78.5 HYPERLIPIDEMIA, UNSPECIFIED 05/23/2016 RACHAEL THEODORE MD Ot 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 05/23/2016 RACHAEL THEODORE MD Ot I10 ESSENTIAL (PRIMARY) HYPERTENSION 05/23/2016 RACHAEL THEODORE MD E Ot I25.1 0 ATHSCL HEART DISEASE OF [place] CORONARY 05/23/2016 RACHAEL THEODORE MD E Ot I25.2 OLD MYOCARDIAL INFARCTION 05/23/2016 RACHAEL THEODORE MD Ot 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 05/23/2016 RACHAEL THEODORE MD E Ot 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 05/23/2016 RACHAEL THEODORE MD E Ot 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 05/23/2016 RACHAEL THEODORE MD Ot K04.7 PERIAPICAL ABSCESS WITHOUT SINUS 05/23/2016 EWELINA NUÑEZ, RACHAEL He Ot R13.1 0 DYSPHAGIA, UNSPECIFIED 05/23/2016 EWELINA NUÑEZ, RACHAEL He Ot Z79.8 4 CONTROLLER COAL OR ORE (CURRENT) USE OF ORAL HYPOGLYC 07/21/2016 BLANTON-AD PA, EMMA K Ot E78.2 MIXED HYPERLIPIDEMIA 07/21/2016 BLANTON-AD PA, EMMA K Ot I34.0 NONRHEUMATIC MITRAL (VALVE) INSUFFICIENC 07/21/2016 BLANTON-AD PA, EMMA K Ot 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 07/21/2016 BLANTON-AD PA, EMMA K Ot I65.23 OCCLUSION AND STENOSIS OF BILATERAL [place] 08/09/2016 BLANTON-AD PA, EMMA K Ot E78.2 MIXED HYPERLIPIDEMIA 08/09/2016 BLANTON-AD PA, EMMA K Ot I34.0 NONRHEUMATIC MITRAL (VALVE) INSUFFICIENC 08/09/2016 BLANTON-AD PA, EMMA K Ot 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 08/09/2016 BLANTON-AD PA, EMMA K Ot I65.23 OCCLUSION AND STENOSIS OF [place] 08/25/2016 BLANTON-AD PA, EMMA K Ot E78.2 MIXED HYPERLIPIDEMIA 08/25/2016 BLANTON-AD PA, EMMA K Ot I34.0 NONRHEUMATIC MITRAL (VALVE) INSUFFICIENC 08/25/2016 BLANTON-AD PA, EMMA K Ot 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 08/25/2016 BLANTON-AD PA, EMMA K Ot I65.23 OCCLUSION AND STENOSIS OF [place] 10/07/2016 BLANTON-AD PA, EMMA K Ot E78.2 MIXED HYPERLIPIDEMIA 10/07/2016 BLANTON-AD PA, EMMA K Ot I34.0 NONRHEUMATIC MITRAL (VALVE) INSUFFICIENC 10/07/2016 BLANTON-AD PA, EMMA K Ot 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 10/07/2016 BLANTON-AD PA, EMMA K Ot I65.23 OCCLUSION AND STENOSIS OF [place] 10/07/2016 BLANTON-AD PA, EMMA K Ot E78.2 MIXED HYPERLIPIDEMIA 10/07/2016 BLANT[place]-AD PA, EMMA K Ot I34.0 NONRHEUMATIC MITRAL (VALVE) INSUFFICIENC 10/07/2016 BLANTONAngelaAD NITISH, EMMA Kraft Ot 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 10/07/2016 BLANTON-AD TALBERT, EMMA Abena Ot I65.23 OCCLUSION AND STENOSIS OF [place]IL[place]AL [place] 06/09/2017 BLANTON-AD TALBERT, EMMA Kraft Ot E78.2 MIXED HYPERLIPIDEMIA 06/09/2017 BLANTON-AD NITISH, EMMA Kraft Ot I34.0 NONRHEUMATIC MITRAL (VALVE) INSUFFICIENC 06/09/2017 BLANTON-AD NITISH, EMMA Kraft Ot 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 06/09/2017 BLANTON-AD PA, EMMA Kraft Ot I65.23 OCCLUSION AND STENOSIS OF [place]IL[place] 11/22/2017 BLANTON-AD TALBERT EMMA Abena Ot E78.2 MIXED HYPERLIPIDEMIA 11/22/2017 BLANTON-AD NITISH, EMMA Kraft Ot I34.0 NONRHEUMATIC MITRAL (VALVE) INSUFFICIENC 11/22/2017 BLANTON-AD TALBERT EMMA Abena Ot 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 11/22/2017 BLANTON-AD TALBERT, EMMA Abena Ot I65.23 OCCLUSION AND STENOSIS OF [place]IL[place] 11/22/2017 MANJU DASILVA MD Ot 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 MELLITUS WITH DIABETIC N 11/22/2017 MANJU DASILVA MD Ot I10 ESSENTIAL (PRIMARY) HYPERTENSION 11/22/2017 MANJU DASILVA MD, Ot I25.10 ATHSCL HEART DISEASE OF [place] CORONARY 11/22/2017 MANJU DASILVA MD, Ot 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 11/22/2017 MANJU DASILVA MD Ot N39 .0 URINARY TRACT INFECTION, SITE NOT SPECIF 11/22/2017 MANJU DASILVA MD, Ot R31 .0 GROSS HEMATURIA 11/22/2017 MANJU DASILVA MD, Ot R33 .9 RETENTION OF URINE, UNSPECIFIED 11/22/2017 MANJU DASILVA MD, Ot S37.30XA UNSPECIFIED INJURY OF URETHRA, INITIAL E 11/22/2017 MANJU DASILVA MD, Ot Z86.73 PRSNL HX OF TIA (TIA), AND CEREB INFRC W 11/22/2017 MANJU DASILVA MD, Ot Z87.891 PERSONAL HISTORY OF NICOTINE DEPENDENCE 11/23/2017 EMMA ANDREWS Ot E78.2 MIXED HYPERLIPIDEMIA 11/23/2017 EMMA ANDREWS Ot I34.0 NONRHEUMATIC MITRAL (VALVE) INSUFFICIENC 11/23/2017 EMMA ANDREWS Ot 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 11/23/2017 EMMA ANDREWS Ot I65.23 OCCLUSION AND STENOSIS OF [place]IL[place] 05/22/2018 KADE DE LEÓN MD Ot E11.4 0 TYPE 2 DIABETES MELLITUS WITH DIABETIC N 05/22/2018 KADE DE LEÓN MD, Ot E78.0 0 PURE HYPERCHOLESTEROLEMIA, UNSPECIFIED 05/22/2018 KADE DE LEÓN MD Ot F32.9 MAJOR DEPRESSIVE DISORDER, SINGLE EPISOD 05/22/2018 KADE DE LEÓN MD Ot 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 05/22/2018 KADE DE LEÓN MD Ot I10 ESSENTIAL (PRIMARY) HYPERTENSION 05/22/2018 KADE DE LEÓN MD Ot I25.1 0 ATHSCL HEART DISEASE OF [place] CORONARY 05/22/2018 KADE DE LEÓN MD Ot I25.2 OLD MYOCARDIAL INFARCTION 05/22/2018 KADE DE LEÓN MD Ot 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 05/22/2018 KADE DE LEÓN MD Ot J18.9 PNEUMONIA, UNSPECIFIED ORGANISM 05/22/2018 KADE DE LEÓN MD Ot N42.9 DISORDER OF PROSTATE, UNSPECIFIED 05/22/2018 KADE DE LEÓN MD Ot R09.0 2 HYPOXEMIA 05/22/2018 KADE DE LEÓN MD Ot Z79.8 4 JAIL (CURRENT) USE OF ORAL HYPOGLYC 05/22/2018 KADE DE LEÓN MD Ot Z87.8 91 PERSONAL HISTORY OF NICOTINE DEPENDENCE 05/22/2018 KADE DE LEÓN MD Ot Z95.5 PRESENCE OF CORONARY ANGIOPLASTY IMPLANT 05/22/2018 KADE DE LEÓN MD Ot E11.4 0 TYPE 2 DIABETES MELLITUS WITH DIABETIC N 05/22/2018 KADE DE LEÓN MD Ot E11.4 2 TYPE 2 DIABETES MELLITUS WITH DIABETIC P 05/22/2018 KADE DE LEÓN MD Ot E78.0 0 PURE HYPERCHOLESTEROLEMIA, UNSPECIFIED 05/22/2018 KADE DE LEÓN MD Ot F02.8 0 DEMENTIA IN OTH DISEASES CLASSD ELSWHR W 05/22/2018 KADE DE LEÓN MD Ot F32.9 MAJOR DEPRESSIVE DISORDER, SINGLE EPISOD 05/22/2018 KADE DE LEÓN MD Ot G20 PARKINSON'S DISEASE 05/22/2018 KADE DE LEÓN MD Ot 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 05/22/2018 KADE DE LEÓN MD Ot I10 ESSENTIAL (PRIMARY) HYPERTENSION 05/22/2018 KADE DE LEÓN MD Ot I25.1 0 ATHSCL HEART DISEASE OF [place] CORONARY 05/22/2018 KADE DE LEÓN MD Ot I25.2 OLD MYOCARDIAL INFARCTION 05/22/2018 KADE DE LEÓN MD Ot 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 05/22/2018 KADE DE LEÓN MD Ot J18.9 PNEUMONIA, UNSPECIFIED ORGANISM 05/22/2018 KADE DE LEÓN MD Ot N42.9 DISORDER OF PROSTATE, UNSPECIFIED 05/22/2018 KADE DE LEÓN MD Ot R09.0 2 HYPOXEMIA 05/22/2018 KADE DE LEÓN MD Ot Z79.8 4 JAIL (CURRENT) USE OF ORAL HYPOGLYC 05/22/2018 KADE DE LEÓN MD Ot Z87.8 91 PERSONAL HISTORY OF NICOTINE DEPENDENCE 05/22/2018 KADE DE LEÓN MD Ot Z95.5 PRESENCE OF CORONARY ANGIOPLASTY IMPLANT 05/22/2018 KADE DE LEÓN MD Ot E11.4 0 TYPE 2 DIABETES MELLITUS WITH DIABETIC N 05/22/2018 KADE DE LEÓN MD Ot E11.4 2 TYPE 2 DIABETES MELLITUS WITH DIABETIC P 05/22/2018 KADE DE LEÓN MD Ot E78.0 0 PURE HYPERCHOLESTEROLEMIA, UNSPECIFIED 05/22/2018 KADE DE LEÓN MD Ot F02.8 0 DEMENTIA IN OTH DISEASES CLASSD ELSWHR W 05/22/2018 KADE DE LEÓN MD Ot F32.9 MAJOR DEPRESSIVE DISORDER, SINGLE EPISOD 05/22/2018 KADE DE LEÓN MD Ot G20 PARKINSON'S DISEASE 05/22/2018 KADE DE LEÓN MD Ot 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 05/22/2018 KADE DE LEÓN MD Ot I10 ESSENTIAL (PRIMARY) HYPERTENSION 05/22/2018 KADE DE LEÓN MD, Ot I25.1 0 ATHSCL HEART DISEASE OF [place] CORONARY 05/22/2018 KADE DE LEÓN MD Ot I25.2 OLD MYOCARDIAL INFARCTION 05/22/2018 KADE DE LEÓN MD Ot 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 05/22/2018 KADE DE LEÓN MD Ot J18.9 PNEUMONIA, UNSPECIFIED ORGANISM 05/22/2018 KADE DE LEÓN MD Ot N42.9 DISORDER OF PROSTATE, UNSPECIFIED 05/22/2018 KADE DE LEÓN MD Ot R09.0 2 HYPOXEMIA 05/22/2018 KADE DE LEÓN MD, Ot Z79.8 4 JAIL (CURRENT) USE OF ORAL HYPOGLYC 05/22/2018 KADE DE LEÓN MD, Ot Z87.8 91 PERSONAL HISTORY OF NICOTINE DEPENDENCE 05/22/2018 KADE DE LEÓN MD Ot Z95.5 PRESENCE OF CORONARY ANGIOPLASTY IMPLANT 06/29/2018 EMMA ANDREWS Ot E78.2 MIXED HYPERLIPIDEMIA 06/29/2018 EMMA ANDREWS Ot I34.0 NONRHEUMATIC MITRAL (VALVE) INSUFFICIENC 06/29/2018 EMMA ANDREWS Ot 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 06/29/2018 EMMA ANDREWS Ot I65.23 OCCLUSION AND STENOSIS OF BILATERAL [place] 06/29/2018 THOMAS CISNEROS MD, Ot B35.4 TINEA CORPORIS 06/29/2018 THOMAS CISNEROS MD Ot E11.4 0 TYPE 2 DIABETES MELLITUS WITH DIABETIC N 06/29/2018 THOMAS CISNEROS MD, Ot E78.0 0 PURE HYPERCHOLESTEROLEMIA, UNSPECIFIED 06/29/2018 THOMAS CINSEROS MD Ot F32.9 MAJOR DEPRESSIVE DISORDER, SINGLE EPISOD 06/29/2018 THOMAS CISNEROS MD Ot I10 ESSENTIAL (PRIMARY) HYPERTENSION 06/29/2018 THOMAS CISNEROS MD, Ot I25.1 0 ATHSCL HEART DISEASE OF [place] CORONARY 06/29/2018 THOMAS CISNEROS MD, Ot I25.2 OLD MYOCARDIAL INFARCTION 06/29/2018 THOMAS CISNEROS MD Ot K59.0 0 CONSTIPATION, UNSPECIFIED 06/29/2018 THOMAS CISNEROS MD Ot Z79.0 2 JAIL (CURRENT) USE OF ANTITHROMBOTI 06/29/2018 THOMAS CISNEROS MD, Ot Z79.4 JAIL (CURRENT) USE OF INSULIN 06/29/2018 THOAMS CISNEROS MD, Ot Z79.8 2 JAIL (CURRENT) USE OF ASPIRIN 06/29/2018 THOMAS CISNEROS MD, Ot Z82.4 9 FAMILY HX OF ISCHEM HEART DIS AND OTH DI 06/29/2018 THOMAS CISNEROS MD, Ot Z86.7 3 PRSNL HX OF TIA (TIA), AND CEREB INFRC W 06/29/2018 THOMAS CISNEROS MD, Ot Z87.0 9 PERSONAL HISTORY OF OTHER DISEASES OF TH 06/29/2018 THOMAS CISNEROS MD, Ot Z88.8 ALLERGY STATUS TO [facility] DRUG/MEDS/BIOL SUB 06/29/2018 THOMAS CISNEROS MD, Ot Z91.0 41 RADIOGRAPHIC DYE ALLERGY STATUS 06/29/2018 THOMAS CISNEROS MD, Ot Z95.5 PRESENCE OF CORONARY ANGIOPLASTY IMPLANT 06/29/2018 THOMAS CISNEROS MD, Ot Z98.8 90 OTHER SPECIFIED POSTPROCEDURAL STATES 07/02/2018 EMMA ANDREWS Ot E78.2 MIXED HYPERLIPIDEMIA 07/02/2018 EMMA ANDREWS Ot I34.0 NONRHEUMATIC MITRAL (VALVE) INSUFFICIENC 07/02/2018 EMMA ANDREWS Ot 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 07/02/2018 EMMA ANDREWS Ot I65.23 OCCLUSION AND STENOSIS OF BILATERAL [place] 07/03/2018 THOMAS CISNEROS MD, Ot B35.4 TINEA CORPORIS 07/03/2018 THOMAS CISNEROS MD, Ot E11.4 0 TYPE 2 DIABETES MELLITUS WITH DIABETIC N 07/03/2018 THOMAS CISNEROS MD, Ot E78.0 0 PURE HYPERCHOLESTEROLEMIA, UNSPECIFIED 07/03/2018 THOMAS CISNEROS MD, Ot F32.9 MAJOR DEPRESSIVE DISORDER, SINGLE EPISOD 07/03/2018 THOMAS CISNEROS MD, Ot I10 ESSENTIAL (PRIMARY) HYPERTENSION 07/03/2018 THOMAS CISNEROS MD, Ot I25.1 0 ATHSCL HEART DISEASE OF [place] CORONARY 07/03/2018 THOMAS CISNEROS MD, Ot I25.2 OLD MYOCARDIAL INFARCTION 07/03/2018 THOMAS CISNEROS MD, Ot K59.0 0 CONSTIPATION, UNSPECIFIED 07/03/2018 THOMAS CISNEROS MD, Ot Z79.0 2 CONTROLLER COAL OR ORE (CURRENT) USE OF ANTITHROMBOTI 07/03/2018 THOMAS CISNEROS MD, Ot Z79.4 JAIL (CURRENT) USE OF INSULIN 07/03/2018 THOMAS CISNEROS MD, Ot Z79.8 2 CONTROLLER COAL OR ORE (CURRENT) USE OF ASPIRIN 07/03/2018 THOMAS CISNEROS MD, Ot Z82.4 9 FAMILY HX OF ISCHEM HEART DIS AND OTH DI 07/03/2018 THOMAS CISNEROS MD, Ot Z86.7 3 PRSNL HX OF TIA (TIA), AND CEREB INFRC W 07/03/2018 THOMAS CISNEROS MD, Ot Z87.0 9 PERSONAL HISTORY OF OTHER DISEASES OF TH 07/03/2018 THOMAS CISNEROS MD, Ot Z88.8 ALLERGY STATUS TO [facility] DRUG/MEDS/BIOL SUB 07/03/2018 THOMAS CISNEROS MD, Ot Z91.0 41 RADIOGRAPHIC DYE ALLERGY STATUS 07/03/2018 THOMAS CISNEROS MD, Ot Z95.5 PRESENCE OF CORONARY ANGIOPLASTY IMPLANT 07/03/2018 THOMAS CISNEROS MD, Ot Z98.8 90 OTHER SPECIFIED POSTPROCEDURAL STATES 07/10/2018 MICHELLE NUÑEZ, TASNEEM Gaspar Ot R35 .0 FREQUENCY OF MICTURITION 07/10/2018 JEREMIAS BERKOWITZ MD Ot E11. 40 TYPE 2 DIABETES MELLITUS WITH DIABETIC N 07/10/2018 JEREMIAS BERKOWITZ MD Ot E78. 00 PURE HYPERCHOLESTEROLEMIA, UNSPECIFIED 07/10/2018 JEREMIAS BERKOWITZ MD Ot F17.210 NICOTINE DEPENDENCE, CIGARETTES, UNCOMPL 07/10/2018 JEREMIAS BERKOWITZ MD Ot F32. 9 MAJOR DEPRESSIVE DISORDER, SINGLE EPISOD 07/10/2018 JEREMIAS BERKOWITZ MD Ot F41. 0 PANIC DISORDER [EPISODIC PAROXYSMAL ANXI 07/10/2018 JEREMIAS BERKOWITZ MD Ot I10 ESSENTIAL (PRIMARY) HYPERTENSION 07/10/2018 JEREMIAS BERKOWITZ MD Ot I25. 10 ATHSCL HEART DISEASE OF [place] CORONARY 07/10/2018 JEREMIAS BERKOWITZ MD, Ot I25. 2 OLD MYOCARDIAL INFARCTION 07/10/2018 JEREMIAS BERKOWITZ MD, Ot L89.152 PRESSURE ULCER OF SACRAL REGION, STAGE 2 07/10/2018 JEREMIAS BERKOWITZ MD Ot R20. 2 PARESTHESIA OF SKIN 07/10/2018 JEREMIAS BERKOWITZ MD Ot R53. 1 WEAKNESS 07/10/2018 JEREMIAS BERKOWITZ MD Ot Z79. 02 CONTROLLER COAL OR ORE (CURRENT) USE OF ANTITHROMBOTI 07/10/2018 JEREMIAS BERKOWITZ MD Ot Z79. 4 CONTROLLER COAL OR ORE (CURRENT) USE OF INSULIN 07/10/2018 JEREMIAS BERKOWITZ MD, Ot Z79. 82 JAIL (CURRENT) USE OF ASPIRIN 07/10/2018 JEREMIAS BERKOWITZ MD, Ot Z82. 49 FAMILY HX OF ISCHEM HEART DIS AND OTH DI 07/10/2018 JEREMIAS BERKOWITZ MD Ot Z86. 73 PRSNL HX OF TIA (TIA), AND CEREB INFRC W 07/10/2018 JEREMIAS BERKOWITZ MD Ot Z88. 8 ALLERGY STATUS TO OT DRUG/MEDS/BIOL SUB 07/10/2018 JEREMIAS BERKOWITZ MD Ot Z91.041 RADIOGRAPHIC DYE ALLERGY STATUS 07/10/2018 JEREMIAS BERKOWITZ MD Ot Z95. 5 PRESENCE OF CORONARY ANGIOPLASTY IMPLANT 07/10/2018 JEREMIAS BERKOWITZ MD Ot Z98.890 OTHER SPECIFIED POSTPROCEDURAL STATES 07/12/2018 MICHELLE NUÑEZ, TASNEEM Gaspar Ot R35 .0 FREQUENCY OF MICTURITION 07/13/2018 JEREMIAS BERKOWITZ MD Ot E11. 40 TYPE 2 DIABETES MELLITUS WITH DIABETIC N 07/13/2018 JEREMIAS BERKOWITZ MD Ot E78. 00 PURE HYPERCHOLESTEROLEMIA, UNSPECIFIED 07/13/2018 JEREMIAS BERKOWITZ MD Ot F17.210 NICOTINE DEPENDENCE, CIGARETTES, UNCOMPL 07/13/2018 JEREMIAS BERKOWITZ MD Ot F32. 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 10 ATHSCL HEART DISEASE OF [place] CORONARY 07/13/2018 JEREMIAS BERKOWITZ MD Ot I25. 2 OLD MYOCARDIAL INFARCTION 07/13/2018 JEREMIAS BERKOWITZ MD Ot L89.152 PRESSURE ULCER OF SACRAL REGION, STAGE 2 07/13/2018 JEREMIAS BERKOWITZ MD Ot R20. 2 PARESTHESIA OF SKIN 07/13/2018 JEREMIAS BERKOWITZ MD Ot R53. 1 WEAKNESS 07/13/2018 JEREMIAS BERKOWITZ MD, Ot Z79. 02 JAIL (CURRENT) USE OF ANTITHROMBOTI 07/13/2018 JEREMIAS BERKOWITZ MD, Ot Z79. 4 JAIL (CURRENT) USE OF INSULIN 07/13/2018 JEREMIAS BERKOWITZ MD, Ot Z79. 82 JAIL (CURRENT) USE OF ASPIRIN 07/13/2018 JEREMIAS BERKOWITZ MD, Ot Z82. 49 FAMILY HX OF ISCHEM HEART DIS AND OTH DI 07/13/2018 JEREMIAS BERKOWITZ MD, Ot Z86. 73 PRSNL HX OF TIA (TIA), AND CEREB INFRC W 07/13/2018 JEREMIAS BERKOWITZ MD, Ot Z88. 8 ALLERGY STATUS TO [facility] DRUG/MEDS/BIOL SUB 07/13/2018 JEREMIAS BERKOWITZ MD, Ot Z91.041 RADIOGRAPHIC DYE ALLERGY STATUS 07/13/2018 JEREMIAS BERKOWITZ MD, Ot Z95. 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 N 08/22/2018 HIPOLITO AMANDA Ot E78.00 PURE HYPERCHOLESTEROLEMIA, UNSPECIFIED 08/22/2018 HIPOLITO AMANDAP Ot F32.9 MAJOR DEPRESSIVE DISORDER, SINGLE EPISOD 08/22/2018 HIPOLITO AMANDAP Ot I10 ESSENTIAL (PRIMARY) HYPERTENSION 08/22/2018 HIPOLITO AMANDA Ot I25.10 ATHSCL HEART DISEASE OF [place] CORONARY 08/22/2018 HIPOLITO AMANDA Ot I25.2 OLD MYOCARDIAL INFARCTION 08/22/2018 HIPOLITO AMANDA Ot J42 UNSPECIFIED CHRONIC BRONCHITIS 08/22/2018 HIPOLITO AMANDA Ot M79.605 PAIN IN LEFT LEG 08/22/2018 HIPOLITO AMANDA Ot R22.43 LOCALIZED SWELLING, MASS AND LUMP, LOWER 08/22/2018 VASILIY HIPOLITO TRACK REPAIRER HELPER Ot Z79.02 CONTROLLER COAL OR ORE (CURRENT) USE OF ANTITHROMBOTI 08/22/2018 VASILIY, HIPOLITO TRACK REPAIRER HELPER Ot Z79.82 JAIL (CURRENT) USE OF ASPIRIN 08/22/2018 VASILIY, HIPOLITO TRACK REPAIRER HELPER Ot Z79.84 CONTROLLER COAL OR ORE (CURRENT) USE OF ORAL HYPOGLYC 08/22/2018 VASILIY, HIPOLITO TRACK REPAIRER HELPER Ot Z82.49 FAMILY HX OF ISCHEM HEART DIS AND OTH DI 08/22/2018 VASILIY, HIPOLITO TRACK REPAIRER HELPER Ot Z86.73 PRSNL HX OF TIA (TIA), AND CEREB INFRC W 08/22/2018 VASILIY, HIPOLITO TRACK REPAIRER HELPER Ot Z88.8 ALLERGY STATUS TO [facility] DRUG/MEDS/BIOL SUB 08/22/2018 VASILIY, HIPOLITO TRACK REPAIRER HELPER Ot Z91.041 RADIOGRAPHIC DYE ALLERGY STATUS 08/22/2018 VASILIY, HIPOLITO TRACK REPAIRER HELPER Ot Z95.5 PRESENCE OF CORONARY ANGIOPLASTY IMPLANT 08/28/2018 VASILIYHIPOLITO He TRACK REPAIRER HELPER Ot 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 MELLITUS WITH DIABETIC N 08/28/2018 VASILIY, HIPOLITO TRACK REPAIRER HELPER Ot E78.00 PURE HYPERCHOLESTEROLEMIA, UNSPECIFIED 08/28/2018 VASILIY, HIPOLITO TRACK REPAIRER HELPER Ot F32.9 MAJOR DEPRESSIVE DISORDER, SINGLE EPISOD 08/28/2018 VASILIY, HIPOLITO TRACK REPAIRER HELPER Ot I10 ESSENTIAL (PRIMARY) HYPERTENSION 08/28/2018 VASILIY, HIPOLITO TRACK REPAIRER HELPER Ot I25.10 ATHSCL HEART DISEASE OF [place] CORONARY 08/28/2018 VASILIY, HIPOLITO TRACK REPAIRER HELPER Ot I25.2 OLD MYOCARDIAL INFARCTION 08/28/2018 VASILIY, HIPOLITO TRACK REPAIRER HELPER Ot J42 UNSPECIFIED CHRONIC BRONCHITIS 08/28/2018 VASILIY, HIPOLITO TRACK REPAIRER HELPER Ot M79.605 PAIN IN LEFT LEG 08/28/2018 VASILIY, HIPOLITO TRACK REPAIRER HELPER Ot R22.43 LOCALIZED SWELLING, MASS AND LUMP, LOWER 08/28/2018 VASILIY, HIPOLITO TRACK REPAIRER HELPER Ot Z79.02 CONTROLLER COAL OR ORE (CURRENT) USE OF ANTITHROMBOTI 08/28/2018 VASILIY, HIPOLITO TRACK REPAIRER HELPER Ot Z79.82 CONTROLLER COAL OR ORE (CURRENT) USE OF ASPIRIN 08/28/2018 VASILIY, HIPOLITO TRACK REPAIRER HELPER Ot Z79.84 CONTROLLER COAL OR ORE (CURRENT) USE OF ORAL HYPOGLYC 08/28/2018 VASILIY, HIPOLITO TRACK REPAIRER HELPER Ot Z82.49 FAMILY HX OF ISCHEM HEART DIS AND OTH DI 08/28/2018 VASILIY HIPOLITO TRACK REPAIRER HELPER Ot Z86.73 PRSNL HX OF TIA (TIA), AND CEREB INFRC W 08/28/2018 VASILIY, HIPOLITO TRACK REPAIRER HELPER Ot Z88.8 ALLERGY STATUS TO [facility]TH DRUG/MEDS/BIOL SUB 08/28/2018 VASILIY, HIPOLITO TRACK REPAIRER HELPER Ot Z91.041 RADIOGRAPHIC DYE ALLERGY STATUS 08/28/2018 VASILIY, HIPOLITO TRACK REPAIRER HELPER Ot Z95.5 PRESENCE OF CORONARY ANGIOPLASTY IMPLANT 08/30/2018 VASILIY, HIPOLITO TRACK REPAIRER HELPER Ot 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 MELLITUS WITH DIABETIC N 08/30/2018 VASILIY, HIPOLITO TRACK REPAIRER HELPER Ot E78.00 PURE HYPERCHOLESTEROLEMIA, UNSPECIFIED 08/30/2018 VASILIY, HIPOLITO TRACK REPAIRER HELPER Ot F32.9 MAJOR DEPRESSIVE DISORDER, SINGLE EPISOD 08/30/2018 VASILIY, HIPOLITO TRACK REPAIRER HELPER Ot I10 ESSENTIAL (PRIMARY) HYPERTENSION 08/30/2018 VASILIY, HIPOLITO TRACK REPAIRER HELPER Ot I25.10 ATHSCL HEART DISEASE OF [place] CORONARY 08/30/2018 VASILIY, HIPOLITO TRACK REPAIRER HELPER Ot I25.2 OLD MYOCARDIAL INFARCTION 08/30/2018 VASILIY, HIPOLITO TRACK REPAIRER HELPER Ot J42 UNSPECIFIED CHRONIC BRONCHITIS 08/30/2018 VASILIY, HIPOLITO TRACK REPAIRER HELPER Ot M79.605 PAIN IN LEFT LEG 08/30/2018 VASILIY, HIPOLITO TRACK REPAIRER HELPER Ot R22.43 LOCALIZED SWELLING, MASS AND LUMP, LOWER 08/30/2018 VASILIY, HIPOLITO TRACK REPAIRER HELPER Ot Z79.02 JAIL (CURRENT) USE OF ANTITHROMBOTI 08/30/2018 VASILIY, HIPOLITO TRACK REPAIRER HELPER Ot Z79.82 CONTROLLER COAL OR ORE (CURRENT) USE OF ASPIRIN 08/30/2018 VASILIY, HIPOLITO TRACK REPAIRER HELPER Ot Z79.84 CONTROLLER COAL OR ORE (CURRENT) USE OF ORAL HYPOGLYC 08/30/2018 VASILIY, HIPOLITO TRACK REPAIRER HELPER Ot Z82.49 FAMILY HX OF ISCHE[place] HEART DIS AND OTH DI 08/30/2018 VASILIY, HIPOLITO TRACK REPAIRER HELPER Ot Z86.73 PRSNL HX OF TIA (TIA), AND CEREB INFRC W 08/30/2018 VASILIY, HIPOLITO TRACK REPAIRER HELPER Ot Z88.8 ALLERGY STATUS TO OTH DRUG/MEDS/BIOL SUB 08/30/2018 VASILIY, HIPOLITO TRACK REPAIRER HELPER Ot Z91.041 RADIOGRAPHIC DYE ALLERGY STATUS 08/30/2018 VASILIY, HIPOLITO TRACK REPAIRER HELPER Ot Z95.5 PRESENCE OF CORONARY ANGIOPLASTY IMPLANT 11/02/2018 JOSÉ MIGUEL ROSALES MD Ot R39.15 URGENCY OF URINATION 04/05/2019 MICHELLE NUÑEZ, TASNEEM Gaspar Ot R35 .0 FREQUENCY OF MICTURITION 04/05/2019 JOSÉ MIGUEL ROSALES MD Ot R39.15 URGENCY OF URINATION 04/05/2019 KEY BERMUDEZ MD, Ot E11. 40 TYPE 2 DIABETES MELLITUS WITH DIABETIC N 04/05/2019 KEY BERMUDEZ MD, Ot E78. 00 PURE HYPERCHOLESTEROLEMIA, UNSPECIFIED 04/05/2019 KEY BERMUDEZ MD, Ot F32. 9 MAJOR DEPRESSIVE DISORDER, SINGLE EPISOD 04/05/2019 KEY BERMUDEZ MD, Ot G40.909 EPILEPSY, UNSP, NOT INTRACTABLE, WITHOUT 04/05/2019 KEY BERMUDEZ MD, Ot I11. 0 HYPERTENSIVE HEART DISEASE WITH HEART FA 04/05/2019 KEY BERMUDEZ MD, Ot I25. 10 ATHSCL HEART DISEASE OF [place] CORONARY 04/05/2019 KEY BERMUDEZ MD, Ot I25. 2 OLD MYOCARDIAL INFARCTION 04/05/2019 KEY BERMUDEZ MD, Ot I50. 9 HEART FAILURE, UNSPECIFIED 04/05/2019 KEY BERMUDEZ MD, Ot S22.31XA FRACTURE OF ONE RIB, RIGHT SIDE, INIT FO 04/05/2019 KEY BERMUDEZ MD, Ot W18.30XA FALL ON SAME LEVEL, UNSPECIFIED, INITIAL 04/05/2019 KEY BERMUDEZ MD, Ot Y92.[address] IN CORRECTION PLACE 04/05/2019 KEY BERMUDEZ MD, Ot Z79. 02 JAIL (CURRENT) USE OF ANTITHROMBOTI 04/05/2019 KEY BERMUDEZ MD, Ot Z79. 82 CONTROLLER COAL OR ORE (CURRENT) USE OF ASPIRIN 04/05/2019 KEY BERMUDEZ MD, Ot Z79. 84 CONTROLLER COAL OR ORE (CURRENT) USE OF ORAL HYPOGLYC 04/05/2019 KEY BERMUDEZ MD, Ot Z86. 73 PRSNL HX OF TIA (TIA), AND CEREB INFRC W 04/05/2019 KEY BERMUDEZ MD, Ot Z88. 8 ALLERGY STATUS TO OTH DRUG/MEDS/BIOL SUB 04/05/2019 KEY BERMUDEZ MD, Ot Z95. 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 00 PURE HYPERCHOLESTEROLEMIA, UNSPECIFIED 04/09/2019 KEY BERMUDEZ MD, Ot F32. 9 MAJOR DEPRESSIVE DISORDER, SINGLE EPISOD 04/09/2019 KEY BERMUDEZ MD, Ot G40.909 EPILEPSY, UNSP, NOT INTRACTABLE, WITHOUT 04/09/2019 KEY BERMUDEZ MD, Ot I11. 0 HYPERTENSIVE HEART DISEASE WITH HEART FA 04/09/2019 KEY BERMUDEZ MD, Ot I25. 10 ATHSCL HEART DISEASE OF [place] CORONARY 04/09/2019 KEY BERMUDEZ MD, Ot I25. 2 OLD MYOCARDIAL INFARCTION 04/09/2019 KEY BERMUDEZ MD, Ot I50. 9 HEART FAILURE, UNSPECIFIED 04/09/2019 KEY BERMUDEZ MD, Ot S22.31XA FRACTURE OF ONE RIB, RIGHT SIDE, INIT FO 04/09/2019 KEY BERMUDEZ MD, Ot W18.30XA FALL ON SAME LEVEL, UNSPECIFIED, INITIAL 04/09/2019 KEY BERMUDEZ MD, Ot Y92.[address] CORRECTION PLACE 04/09/2019 KEY BERMUDEZ MD, Ot Z79. 02 JAIL (CURRENT) USE OF ANTITHROMBOTI 04/09/2019 KEY BERMUDEZ MD, Ot Z79. 82 JAIL (CURRENT) USE OF ASPIRIN 04/09/2019 KEY BERMUDEZ MD, Ot Z79. 84 JAIL (CURRENT) USE OF ORAL HYPOGLYC 04/09/2019 KEY BERMUDEZ MD, Ot Z86. 73 PRSNL HX OF TIA (TIA), AND CEREB INFRC W 04/09/2019 KEY BERMUDEZ MD, Ot Z88. 8 ALLERGY STATUS TO OT DRUG/MEDS/BIOL SUB 04/09/2019 KEY BERMUDEZ MD, Ot Z95. 5 PRESENCE OF CORONARY ANGIOPLASTY IMPLANT Procedures Code Description Performed By Per anabella On [id number] IN SERT OF MONITOR DEV INTO CHEST SUBCU/F 05/16/2016 Results Test Result Range Complete blood count (CBC) with automate d white blood cell (WBC) differential - 05/02/16 16:31 Blood leukocytes automated count (number/volume) 7.3 10*3/uL 4.3-11.0 Blood erythrocytes automated count (number/volume) 4.37 10*6/uL 4.35-5.85 Venous blood hemoglobin measurement (mass/volume) 16.0 g/dL 13.3-17.7 Blood hematocrit (volume fraction) 43 % 40-54 Automated erythrocyte mean corpuscular volume 99 [ foz_us] 80-99 Automated erythrocyte mean corpuscular h emoglobin (mass per erythrocyte) 37 pg 25-34 Automated erythrocyte mean corpuscular h emoglobin concentration measurement (mass/volume) 37 g/dL 32-36 Automated erythrocyte distribution width ratio 12. 2 % 10.0- 14.5 Automated blood platelet count (count/volume) 177 10*3/uL 130-400 Automated blood platelet mean volume measurement 9.7 [foz_us] 7.4-10.4 Automated blood neutrophils/100 leukocytes 57 % 42-75 Automated blood lymphocytes/100 leukocytes 30 % 12-44 Blood monocytes/100 leukocytes 10 % 0-12 Automated blood eosinophils/100 leukocytes 3 % 0-10 Automated blood basophils/100 leukocytes 0 % 0-10 Blood neutrophils automated count (number/volume) 4.2 10*3 1.8-7.8 Blood lymphocytes automated count (number/volume) 2.2 10*3 1.0-4.0 Blood monocytes automated count (number/volume) 0. 8 10*3 0.0-1.0 Automated eosinophil count 0.2 10*3/uL 0 .0-0.3 Automated blood basophil count (count/volume) 0.0 10*3/uL 0.0-0.1 PT panel in platelet poor plasma by coag ulation assay - 05/02/16 16:31 Prothrombin time (PT) in platelet poor plasma by coagu lation assay 13.7 s 12.2-14.7 INR in platelet poor plasma or blood by coagulation as say 1.1 0.8-1.4 Activated partial thromboplastin time (a PTT) in platelet poor plasma bycoagulation assay - 05/02/16 16:31 Activated partial thromboplastin time (a PTT) in platelet poor plasma bycoagulation assay 23 s 24-35 Comprehensive metabolic panel - 05/02/16 16:31 Serum or plasma sodium measurement (moles/volume) 139 mmol/L 135-145 Serum or plasma potassium measurement (moles/volume) 4.6 mmol/L 3.6-5.0 Serum or plasma chloride measurement (moles/volume) 105 mmol/L 98-107 Carbon dioxide 24 mmol/L 21-32 Serum or plasma anion gap determination (moles/volume) 10 mmol/L 5-14 Serum or plasma urea nitrogen measurement (mass/volume ) 18 mg/dL 7-18 Serum or plasma creatinine measurement (mass/volume) 0.96 mg/dL 0.60-1.30 Serum or plasma urea nitrogen/creatinine mass ratio 19 NRG Serum or plasma creatinine measurement w ith calculation of estimated glomerular filtration rate > NRG Serum or plasma glucose measurement (mass/volume) 192 mg/dL 70-105 Serum or plasma calcium measurement (mass/volume) 8.7 mg/dL 8.5-10.1 Serum or plasma total bilirubin measurement (mass/volu me) 0.7 mg/dL 0.1-1.0 Serum or plasma alkaline phosphatase harsh surement (enzymatic activity/volume) 54 U/L 40-136 Serum or plasma aspartate aminotransfera se measurement (enzymatic activity/volume) 25 U/L 5-34 Serum or plasma alanine aminotransferase measurement (enzymatic activity/volume) 34 U/L 0-55 Serum or plasma protein measurement (mass/volume) 7.4 g/dL 6.4-8.2 Serum or plasma albumin measurement (mass/volume) 4.2 g/dL 3.2-4.5 Magnesium - 05/02/16 16:31 Magnesium 2.2 mg/dL 1.8-2.4 Serum or plasma troponin i.cardiac measu rement (mass/volume) - 05/02/16 16:31 Serum or plasma troponin i.cardiac measurement (mass/v olume) < ng/mL <0.30 Myoglobin, serum - 05/02/16 16:31 Myoglobin, serum 40.1 ng/mL 10.0-92.0 Serum or plasma thyrotropin measurement by detection limit <=0.05 miu/l (units/volume) - 05/02/16 16:31 Serum or plasma thyrotropin measurement by detection limit <=0.05 miu/l (units/volume) 0.68 u[iU]/mL 0.35-4.94 Capillary blood glucose measurement by g lucometer (mass/volume) - 05/02/16 20:17 Capillary blood glucose measurement by glucometer (mas s/volume) 154 mg/dL 70-110 Serum or plasma troponin i.cardiac measu rement (mass/volume) - 05/02/16 22:26 Serum or plasma troponin i.cardiac measurement (mass/v olume) < ng/mL <0.30 Complete blood count (CBC) with automate d white blood cell (WBC) differential - 05/03/16 04:00 Blood leukocytes automated count (number/volume) 7.4 10*3/uL 4.3-11.0 Blood erythrocytes automated count (number/volume) 4.10 10*6/uL 4.35-5.85 Venous blood hemoglobin measurement (mass/volume) 14.7 g/dL 13.3-17.7 Blood hematocrit (volume fraction) 41 % 40-54 Automated erythrocyte mean corpuscular volume 99 [ foz_us] 80-99 Automated erythrocyte mean corpuscular h emoglobin (mass per erythrocyte) 36 pg 25-34 Automated erythrocyte mean corpuscular h emoglobin concentration measurement (mass/volume) 36 g/dL 32-36 Automated erythrocyte distribution width ratio 12. 3 % 10.0- 14.5 Automated blood platelet count (count/volume) 159 10*3/uL 130-400 Automated blood platelet mean volume measurement 10.0 [foz_us] 7.4-10.4 Automated blood neutrophils/100 leukocytes 45 % 42-75 Automated blood lymphocytes/100 leukocytes 40 % 12-44 Blood monocytes/100 leukocytes 11 % 0-12 Automated blood eosinophils/100 leukocytes 5 % 0-10 Automated blood basophils/100 leukocytes 0 % 0-10 Blood neutrophils automated count (number/volume) 3.3 10*3 1.8-7.8 Blood lymphocytes automated count (number/volume) 3.0 10*3 1.0-4.0 Blood monocytes automated count (number/volume) 0. 8 10*3 0.0-1.0 Automated eosinophil count 0.4 10*3/uL 0 .0-0.3 Automated blood basophil count (count/volume) 0.0 10*3/uL 0.0-0.1 Comprehensive metabolic panel - 05/03/16 04:00 Serum or plasma sodium measurement (moles/volume) 141 mmol/L 135-145 Serum or plasma potassium measurement (moles/volume) 4.2 mmol/L 3.6-5.0 Serum or plasma chloride measurement (moles/volume) 106 mmol/L 98-107 Carbon dioxide 24 mmol/L 21-32 Serum or plasma anion gap determination (moles/volume) 11 mmol/L 5-14 Serum or plasma urea nitrogen measurement (mass/volume ) 16 mg/dL 7-18 Serum or plasma creatinine measurement (mass/volume) 0.89 mg/dL 0.60-1.30 Serum or plasma urea nitrogen/creatinine mass ratio 18 NRG Serum or plasma creatinine measurement w ith calculation of estimated glomerular filtration rate > NRG Serum or plasma glucose measurement (mass/volume) 156 mg/dL 70-105 Serum or plasma calcium measurement (mass/volume) 8.3 mg/dL 8.5-10.1 Serum or plasma total bilirubin measurement (mass/volu me) 0.4 mg/dL 0.1-1.0 Serum or plasma alkaline phosphatase harsh surement (enzymatic activity/volume) 48 U/L 40-136 Serum or plasma aspartate aminotransfera se measurement (enzymatic activity/volume) 22 U/L 5-34 Serum or plasma alanine aminotransferase measurement (enzymatic activity/volume) 31 U/L 0-55 Serum or plasma protein measurement (mass/volume) 6.4 g/dL 6.4-8.2 Serum or plasma albumin measurement (mass/volume) 3.6 g/dL 3.2-4.5 Capillary blood glucose measurement by g lucometer (mass/volume) - 05/03/16 11:08 Capillary blood glucose measurement by glucometer (mas s/volume) 162 mg/dL 70-110 Capillary blood glucose measurement by g lucometer (mass/volume) - 05/03/16 16:17 Capillary blood glucose measurement by glucometer (mas s/volume) 180 mg/dL 70-110 Capillary blood glucose measurement by g lucometer (mass/volume) - 05/03/16 20:27 Capillary blood glucose measurement by glucometer (mas s/volume) 151 mg/dL 70-110 Capillary blood glucose measurement by g lucometer (mass/volume) - 05/04/16 06:43 Capillary blood glucose measurement by glucometer (mas s/volume) 142 mg/dL 70-110 Capillary blood glucose measurement by g lucometer (mass/volume) - 05/04/16 10:33 Capillary blood glucose measurement by glucometer (mas s/volume) 222 mg/dL 70-110 Capillary blood glucose measurement by g lucometer (mass/volume) - 05/04/16 17:07 Capillary blood glucose measurement by glucometer (mas s/volume) 128 mg/dL 70-110 Capillary blood glucose measurement by g lucometer (mass/volume) - 05/04/16 20:31 Capillary blood glucose measurement by glucometer (mas s/volume) 172 mg/dL 70-110 Capillary blood glucose measurement by g lucometer (mass/volume) - 05/05/16 05:20 Capillary blood glucose measurement by glucometer (mas s/volume) 151 mg/dL 70-110 Capillary blood glucose measurement by g lucometer (mass/volume) - 05/05/16 11:01 Capillary blood glucose measurement by glucometer (mas s/volume) 137 mg/dL 70-110 Capillary blood glucose measurement by g lucometer (mass/volume) - 05/05/16 16:08 Capillary blood glucose measurement by glucometer (mas s/volume) 128 mg/dL 70-110 Capillary blood glucose measurement by g lucometer (mass/volume) - 05/05/16 20:21 Capillary blood glucose measurement by glucometer (mas s/volume) 209 mg/dL 70-110 Capillary blood glucose measurement by g lucometer (mass/volume) - 05/06/16 05:10 Capillary blood glucose measurement by glucometer (mas s/volume) 147 mg/dL 70-110 Complete blood count (CBC) with automate d white blood cell (WBC) differential - 05/06/16 05:18 Blood leukocytes automated count (number/volume) 5.5 10*3/uL 4.3-11.0 Blood erythrocytes automated count (number/volume) 3.88 10*6/uL 4.35-5.85 Venous blood hemoglobin measurement (mass/volume) 14.1 g/dL 13.3-17.7 Blood hematocrit (volume fraction) 38 % 40-54 Automated erythrocyte mean corpuscular volume 98 [ foz_us] 80-99 Automated erythrocyte mean corpuscular h emoglobin (mass per erythrocyte) 36 pg 25-34 Automated erythrocyte mean corpuscular h emoglobin concentration measurement (mass/volume) 37 g/dL 32-36 Automated erythrocyte distribution width ratio 12. 1 % 10.0- 14.5 Automated blood platelet count (count/volume) 150 10*3/uL 130-400 Automated blood platelet mean volume measurement 10.2 [foz_us] 7.4-10.4 Automated blood neutrophils/100 leukocytes 50 % 42-75 Automated blood lymphocytes/100 leukocytes 36 % 12-44 Blood monocytes/100 leukocytes 11 % 0-12 Automated blood eosinophils/100 leukocytes 3 % 0-10 Automated blood basophils/100 leukocytes 1 % 0-10 Blood neutrophils automated count (number/volume) 2.7 10*3 1.8-7.8 Blood lymphocytes automated count (number/volume) 2.0 10*3 1.0-4.0 Blood monocytes automated count (number/volume) 0. 6 10*3 0.0-1.0 Automated eosinophil count 0.2 10*3/uL 0 .0-0.3 Automated blood basophil count (count/volume) 0.0 10*3/uL 0.0-0.1 Comprehensive metabolic panel - 05/06/16 05:18 Serum or plasma sodium measurement (moles/volume) 139 mmol/L 135-145 Serum or plasma potassium measurement (moles/volume) 3.8 mmol/L 3.6-5.0 Serum or plasma chloride measurement (moles/volume) 106 mmol/L 98-107 Carbon dioxide 22 mmol/L 21-32 Serum or plasma anion gap determination (moles/volume) 11 mmol/L 5-14 Serum or plasma urea nitrogen measurement (mass/volume ) 12 mg/dL 7-18 Serum or plasma creatinine measurement (mass/volume) 0.77 mg/dL 0.60-1.30 Serum or plasma urea nitrogen/creatinine mass ratio 16 NRG Serum or plasma creatinine measurement w ith calculation of estimated glomerular filtration rate > NRG Serum or plasma glucose measurement (mass/volume) 154 mg/dL 70-105 Serum or plasma calcium measurement (mass/volume) 8.2 mg/dL 8.5-10.1 Serum or plasma total bilirubin measurement (mass/volu me) 0.5 mg/dL 0.1-1.0 Serum or plasma alkaline phosphatase harsh surement (enzymatic activity/volume) 50 U/L 40-136 Serum or plasma aspartate aminotransfera se measurement (enzymatic activity/volume) 34 U/L 5-34 Serum or plasma alanine aminotransferase measurement (enzymatic activity/volume) 38 U/L 0-55 Serum or plasma protein measurement (mass/volume) 6.0 g/dL 6.4-8.2 Serum or plasma albumin measurement (mass/volume) 3.5 g/dL 3.2-4.5 Capillary blood glucose measurement by g lucometer (mass/volume) - 05/06/16 11:16 Capillary blood glucose measurement by glucometer (mas s/volume) 155 mg/dL 70-110 Capillary blood glucose measurement by g lucometer (mass/volume) - 05/06/16 16:14 Capillary blood glucose measurement by glucometer (mas s/volume) 149 mg/dL 70-110 Capillary blood glucose measurement by g lucometer (mass/volume) - 05/06/16 20:08 Capillary blood glucose measurement by glucometer (mas s/volume) 187 mg/dL 70-110 Capillary blood glucose measurement by g lucometer (mass/volume) - 05/07/16 06:06 Capillary blood glucose measurement by glucometer (mas s/volume) 173 mg/dL 70-110 Capillary blood glucose measurement by g lucometer (mass/volume) - 05/07/16 11:03 Capillary blood glucose measurement by glucometer (mas s/volume) 231 mg/dL 70-110 Capillary blood glucose measurement by g lucometer (mass/volume) - 05/07/16 16:30 Capillary blood glucose measurement by glucometer (mas s/volume) 108 mg/dL 70-110 Capillary blood glucose measurement by g lucometer (mass/volume) - 05/07/16 21:06 Capillary blood glucose measurement by glucometer (mas s/volume) 200 mg/dL 70-110 Capillary blood glucose measurement by g lucometer (mass/volume) - 05/08/16 05:00 Capillary blood glucose measurement by glucometer (mas s/volume) 163 mg/dL 70-110 Capillary blood glucose measurement by g lucometer (mass/volume) - 05/08/16 11:09 Capillary blood glucose measurement by glucometer (mas s/volume) 259 mg/dL 70-110 Capillary blood glucose measurement by g lucometer (mass/volume) - 05/08/16 16:01 Capillary blood glucose measurement by glucometer (mas s/volume) 167 mg/dL 70-110 Capillary blood glucose measurement by g lucometer (mass/volume) - 05/08/16 20:28 Capillary blood glucose measurement by glucometer (mas s/volume) 251 mg/dL 70-110 Capillary blood glucose measurement by g lucometer (mass/volume) - 05/09/16 05:30 Capillary blood glucose measurement by glucometer (mas s/volume) 150 mg/dL 70-110 Capillary blood glucose measurement by g lucometer (mass/volume) - 05/09/16 10:56 Capillary blood glucose measurement by glucometer (mas s/volume) 200 mg/dL 70-110 Capillary blood glucose measurement by g lucometer (mass/volume) - 05/09/16 16:29 Capillary blood glucose measurement by glucometer (mas s/volume) 157 mg/dL 70-110 Capillary blood glucose measurement by g lucometer (mass/volume) - 05/09/16 20:11 Capillary blood glucose measurement by glucometer (mas s/volume) 249 mg/dL 70-110 Capillary blood glucose measurement by g lucometer (mass/volume) - 05/10/16 06:18 Capillary blood glucose measurement by glucometer (mas s/volume) 143 mg/dL 70-110 Capillary blood glucose measurement by g lucometer (mass/volume) - 05/10/16 11:56 Capillary blood glucose measurement by glucometer (mas s/volume) 178 mg/dL 70-110 Capillary blood glucose measurement by g lucometer (mass/volume) - 05/10/16 16:00 Capillary blood glucose measurement by glucometer (mas s/volume) 181 mg/dL 70-110 Capillary blood glucose measurement by g lucometer (mass/volume) - 05/10/16 20:15 Capillary blood glucose measurement by glucometer (mas s/volume) 199 mg/dL 70-110 Capillary blood glucose measurement by g lucometer (mass/volume) - 05/11/16 05:32 Capillary blood glucose measurement by glucometer (mas s/volume) 136 mg/dL 70-110 Complete blood count (CBC) with automate d white blood cell (WBC) differential - 05/11/16 15:30 Blood leukocytes automated count (number/volume) 6.6 10*3/uL 4.3-11.0 Blood erythrocytes automated count (number/volume) 4.02 10*6/uL 4.35-5.85 Venous blood hemoglobin measurement (mass/volume) 14.9 g/dL 13.3-17.7 Blood hematocrit (volume fraction) 40 % 40-54 Automated erythrocyte mean corpuscular volume 100 [foz_us] 80-99 Automated erythrocyte mean corpuscular h emoglobin (mass per erythrocyte) 37 pg 25-34 Automated erythrocyte mean corpuscular h emoglobin concentration measurement (mass/volume) 37 g/dL 32-36 Automated erythrocyte distribution width ratio 12. 5 % 10.0- 14.5 Automated blood platelet count (count/volume) 162 10*3/uL 130-400 Automated blood platelet mean volume measurement 9.8 [foz_us] 7.4-10.4 Automated blood neutrophils/100 leukocytes 59 % 42-75 Automated blood lymphocytes/100 leukocytes 27 % 12-44 Blood monocytes/100 leukocytes 12 % 0-12 Automated blood eosinophils/100 leukocytes 2 % 0-10 Automated blood basophils/100 leukocytes 1 % 0-10 Blood neutrophils automated count (number/volume) 3.9 10*3 1.8-7.8 Blood lymphocytes automated count (number/volume) 1.8 10*3 1.0-4.0 Blood monocytes automated count (number/volume) 0. 8 10*3 0.0-1.0 Automated eosinophil count 0.2 10*3/uL 0 .0-0.3 Automated blood basophil count (count/volume) 0.0 10*3/uL 0.0-0.1 Comprehensive metabolic panel - 05/11/16 15:30 Serum or plasma sodium measurement (moles/volume) 137 mmol/L 135-145 Serum or plasma potassium measurement (moles/volume) 4.6 mmol/L 3.6-5.0 Serum or plasma chloride measurement (moles/volume) 103 mmol/L 98-107 Carbon dioxide 29 mmol/L 21-32 Serum or plasma anion gap determination (moles/volume) 5 mmol/L 5-14 Serum or plasma urea nitrogen measurement (mass/volume ) 13 mg/dL 7-18 Serum or plasma creatinine measurement (mass/volume) 0.86 mg/dL 0.60-1.30 Serum or plasma urea nitrogen/creatinine mass ratio 15 NRG Serum or plasma creatinine measurement w ith calculation of estimated glomerular filtration rate > NRG Serum or plasma glucose measurement (mass/volume) 185 mg/dL 70-105 Serum or plasma calcium measurement (mass/volume) 8.6 mg/dL 8.5-10.1 Serum or plasma total bilirubin measurement (mass/volu me) 0.5 mg/dL 0.1-1.0 Serum or plasma alkaline phosphatase harsh surement (enzymatic activity/volume) 51 U/L 40-136 Serum or plasma aspartate aminotransfera se measurement (enzymatic activity/volume) 24 U/L 5-34 Serum or plasma alanine aminotransferase measurement (enzymatic activity/volume) 42 U/L 0-55 Serum or plasma protein measurement (mass/volume) 6.8 g/dL 6.4-8.2 Serum or plasma albumin measurement (mass/volume) 3.9 g/dL 3.2-4.5 Capillary blood glucose measurement by g lucometer (mass/volume) - 05/11/16 20:53 Capillary blood glucose measurement by glucometer (mas s/volume) 234 mg/dL 70-110 Capillary blood glucose measurement by g lucometer (mass/volume) - 05/12/16 05:59 Capillary blood glucose measurement by glucometer (mas s/volume) 160 mg/dL 70-110 Capillary blood glucose measurement by g lucometer (mass/volume) - 05/12/16 11:33 Capillary blood glucose measurement by glucometer (mas s/volume) 166 mg/dL 70-110 Capillary blood glucose measurement by g lucometer (mass/volume) - 05/12/16 16:10 Capillary blood glucose measurement by glucometer (mas s/volume) 162 mg/dL 70-110 Capillary blood glucose measurement by g lucometer (mass/volume) - 05/12/16 16:22 Capillary blood glucose measurement by glucometer (mas s/volume) 151 mg/dL 70-110 Capillary blood glucose measurement by g lucometer (mass/volume) - 05/12/16 20:23 Capillary blood glucose measurement by glucometer (mas s/volume) 225 mg/dL 70-110 Complete urinalysis with reflex to cultu re - 05/12/16 21:35 Urine color determination YELLOW NRG Urine clarity determination CLEAR NR G Urine pH measurement by test strip 7 5-9 Specific gravity of urine by test strip 1.010 1.016-1.022 Urine protein assay by test strip, semi-quantitative NEGATIVE NEGATIVE Urine glucose detection by automated test strip 4+ NEGATIVE Erythrocytes detection in urine sediment by light micr oscopy NEGATIVE NEGATIVE Urine ketones detection by automated test strip NE GATIVE NEGATIVE Urine nitrite detection by test strip NEGATIVE NEGATIVE Urine total bilirubin detection by test strip NEGA TIVE NEGATIVE Urine urobilinogen measurement by automated test strip (mass/volume) NORMAL NORMAL Urine leukocyte esterase detection by dipstick NEG ATIVE NEGATIVE Automated urine sediment erythrocyte cou nt by microscopy (number/high power field) NONE NRG Automated urine sediment leukocyte count by microscopy (number/high power field) NONE NRG Bacteria detection in urine sediment by light microsco py NONE NRG Squamous epithelial cells detection in u rine sediment by light microscopy RARE NRG Crystals detection in urine sediment by light microsco py NONE NRG Casts detection in urine sediment by light microscopy NONE NRG Mucus detection in urine sediment by light microscopy NEGATIVE NRG Complete urinalysis with reflex to culture NO NRG Capillary blood glucose measurement by g lucometer (mass/volume) - 05/13/16 05:35 Capillary blood glucose measurement by glucometer (mas s/volume) 142 mg/dL 70-110 Capillary blood glucose measurement by g lucometer (mass/volume) - 05/13/16 12:09 Capillary blood glucose measurement by glucometer (mas s/volume) 191 mg/dL 70-110 Capillary blood glucose measurement by g lucometer (mass/volume) - 05/13/16 15:48 Capillary blood glucose measurement by glucometer (mas s/volume) 196 mg/dL 70-110 Capillary blood glucose measurement by g lucometer (mass/volume) - 05/13/16 20:50 Capillary blood glucose measurement by glucometer (mas s/volume) 167 mg/dL 70-110 Capillary blood glucose measurement by g lucometer (mass/volume) - 05/14/16 05:16 Capillary blood glucose measurement by glucometer (mas s/volume) 150 mg/dL 70-110 Capillary blood glucose measurement by g lucometer (mass/volume) - 05/14/16 11:20 Capillary blood glucose measurement by glucometer (mas s/volume) 172 mg/dL 70-110 Capillary blood glucose measurement by g lucometer (mass/volume) - 05/14/16 15:58 Capillary blood glucose measurement by glucometer (mas s/volume) 234 mg/dL 70-110 Capillary blood glucose measurement by g lucometer (mass/volume) - 05/14/16 20:16 Capillary blood glucose measurement by glucometer (mas s/volume) 127 mg/dL 70-110 Capillary blood glucose measurement by g lucometer (mass/volume) - 05/15/16 06:28 Capillary blood glucose measurement by glucometer (mas s/volume) 173 mg/dL 70-110 Capillary blood glucose measurement by g lucometer (mass/volume) - 05/15/16 11:46 Capillary blood glucose measurement by glucometer (mas s/volume) 235 mg/dL 70-110 Capillary blood glucose measurement by g lucometer (mass/volume) - 05/15/16 16:38 Capillary blood glucose measurement by glucometer (mas s/volume) 150 mg/dL 70-110 Capillary blood glucose measurement by g lucometer (mass/volume) - 05/15/16 20:35 Capillary blood glucose measurement by glucometer (mas s/volume) 248 mg/dL 70-110 Capillary blood glucose measurement by g lucometer (mass/volume) - 05/16/16 05:11 Capillary blood glucose measurement by glucometer (mas s/volume) 149 mg/dL 70-110 Capillary blood glucose measurement by g lucometer (mass/volume) - 05/16/16 10:55 Capillary blood glucose measurement by glucometer (mas s/volume) 217 mg/dL 70-110 Capillary blood glucose measurement by g lucometer (mass/volume) - 05/16/16 15:34 Capillary blood glucose measurement by glucometer (mas s/volume) 158 mg/dL 70-110 Capillary blood glucose measurement by g lucometer (mass/volume) - 05/16/16 20:37 Capillary blood glucose measurement by glucometer (mas s/volume) 223 mg/dL 70-110 Capillary blood glucose measurement by g lucometer (mass/volume) - 05/17/16 05:48 Capillary blood glucose measurement by glucometer (mas s/volume) 156 mg/dL 70-110 Capillary blood glucose measurement by g lucometer (mass/volume) - 05/17/16 10:57 Capillary blood glucose measurement by glucometer (mas s/volume) 189 mg/dL 70-110 Capillary blood glucose measurement by g lucometer (mass/volume) - 05/17/16 16:38 Capillary blood glucose measurement by glucometer (mas s/volume) 224 mg/dL 70-110 Capillary blood glucose measurement by g lucometer (mass/volume) - 05/18/16 05:11 Capillary blood glucose measurement by glucometer (mas s/volume) 176 mg/dL 70-110 Capillary blood glucose measurement by g lucometer (mass/volume) - 05/18/16 10:53 Capillary blood glucose measurement by glucometer (mas s/volume) 164 mg/dL 70-110 Capillary blood glucose measurement by g lucometer (mass/volume) - 05/18/16 15:53 Capillary blood glucose measurement by glucometer (mas s/volume) 160 mg/dL 70-110 Capillary blood glucose measurement by g lucometer (mass/volume) - 05/19/16 06:02 Capillary blood glucose measurement by glucometer (mas s/volume) 175 mg/dL 70-110 Capillary blood glucose measurement by g lucometer (mass/volume) - 05/19/16 11:26 Capillary blood glucose measurement by glucometer (mas s/volume) 170 mg/dL 70-110 Capillary blood glucose measurement by g lucometer (mass/volume) - 05/19/16 20:04 Capillary blood glucose measurement by glucometer (mas s/volume) 278 mg/dL 70-110 Capillary blood glucose measurement by g lucometer (mass/volume) - 05/20/16 05:09 Capillary blood glucose measurement by glucometer (mas s/volume) 177 mg/dL 70-110 [id number] gene mutation analysis - 7 09:57 [id number] gene mutation analysis Intermediate [facility] Capillary blood glucose measurement by g lucometer (mass/volume) - 05/20/16 11:04 Capillary blood glucose measurement by glucometer (mas s/volume) 138 mg/dL 70-110 Capillary blood glucose measurement by g lucometer (mass/volume) - 05/20/16 16:47 Capillary blood glucose measurement by glucometer (mas s/volume) 180 mg/dL 70-110 Capillary blood glucose measurement by g lucometer (mass/volume) - 05/21/16 05:18 Capillary blood glucose measurement by glucometer (mas s/volume) 142 mg/dL 70-110 Capillary blood glucose measurement by g lucometer (mass/volume) - 05/21/16 16:59 Capillary blood glucose measurement by glucometer (mas s/volume) 152 mg/dL 70-110 Capillary blood glucose measurement by g lucometer (mass/volume) - 05/22/16 06:18 Capillary blood glucose measurement by glucometer (mas s/volume) 156 mg/dL 70-110 Capillary blood glucose measurement by g lucometer (mass/volume) - 05/22/16 11:05 Capillary blood glucose measurement by glucometer (mas s/volume) 216 mg/dL 70-110 Capillary blood glucose measurement by g lucometer (mass/volume) - 05/22/16 16:31 Capillary blood glucose measurement by glucometer (mas s/volume) 178 mg/dL 70-110 Capillary blood glucose measurement by g lucometer (mass/volume) - 05/23/16 05:38 Capillary blood glucose measurement by glucometer (mas s/volume) 132 mg/dL 70-110 Complete blood count (CBC) with automate d white blood cell (WBC) differential - 11/22/17 05:10 Blood leukocytes automated count (number/volume) 8.3 10*3/uL 4.3-11.0 Blood erythrocytes automated count (number/volume) 3.34 10*6/uL 4.35-5.85 Venous blood hemoglobin measurement (mass/volume) 12.7 g/dL 13.3-17.7 Blood hematocrit (volume fraction) 33 % 40-54 Automated erythrocyte mean corpuscular volume 99 [ foz_us] 80-99 Automated erythrocyte mean corpuscular h emoglobin (mass per erythrocyte) 38 pg 25-34 Automated erythrocyte mean corpuscular h emoglobin concentration measurement (mass/volume) 38 g/dL 32-36 Automated erythrocyte distribution width ratio 12. 2 % 10.0- 14.5 Automated blood platelet count (count/volume) 195 10*3/uL 130-400 Automated blood platelet mean volume measurement 9.2 [foz_us] 7.4-10.4 Automated blood neutrophils/100 leukocytes 55 % 42-75 Automated blood lymphocytes/100 leukocytes 31 % 12-44 Blood monocytes/100 leukocytes 11 % 0-12 Automated blood eosinophils/100 leukocytes 3 % 0-10 Automated blood basophils/100 leukocytes 0 % 0-10 Blood neutrophils automated count (number/volume) 4.6 10*3 1.8-7.8 Blood lymphocytes automated count (number/volume) 2.6 10*3 1.0-4.0 Blood monocytes automated count (number/volume) 0. 9 10*3 0.0-1.0 Automated eosinophil count 0.2 10*3/uL 0 .0-0.3 Automated blood basophil count (count/volume) 0.0 10*3/uL 0.0-0.1 Blood lactic acid measurement (moles/vol ume) - 11/22/17 05:10 Blood lactic acid measurement (moles/volume) 1.04 mmol/L 0.50-2.00 Whole blood basic metabolic panel - 11/13 05:10 Serum or plasma sodium measurement (moles/volume) 137 mmol/L 135-145 Serum or plasma potassium measurement (moles/volume) 3.8 mmol/L 3.6-5.0 Serum or plasma chloride measurement (moles/volume) 108 mmol/L 98-107 Carbon dioxide 21 mmol/L 21-32 Serum or plasma anion gap determination (moles/volume) 8 mmol/L 5-14 Serum or plasma urea nitrogen measurement (mass/volume ) 8 mg/dL 7-18 Serum or plasma creatinine measurement (mass/volume) 0.73 mg/dL 0.60-1.30 Serum or plasma urea nitrogen/creatinine mass ratio 11 NRG Serum or plasma creatinine measurement w ith calculation of estimated glomerular filtration rate > NRG Serum or plasma glucose measurement (mass/volume) 161 mg/dL 70-105 Serum or plasma calcium measurement (mass/volume) 8.1 mg/dL 8.5-10.1 A1C - 05/07/18 10:11 HEMOGLOBIN A1c 6.4 % of total Hgb <5.7 Influenza virus A and B antigen detectio n - 05/19/18 22:15 FLU RESULT NEGATIVE FOR INFLUENZA A AND B ANTIGENS BY IA NR Complete blood count (CBC) with automate d white blood cell (WBC) differential - 05/19/18 22:20 Blood leukocytes automated count (number/volume) 8.2 10*3/uL 4.3-11.0 Blood erythrocytes automated count (number/volume) 3.29 10*6/uL 4.35-5.85 Venous blood hemoglobin measurement (mass/volume) 12.6 g/dL 13.3-17.7 Blood hematocrit (volume fraction) 34 % 40-54 Automated erythrocyte mean corpuscular volume 105 [foz_us] 80-99 Automated erythrocyte mean corpuscular h emoglobin (mass per erythrocyte) 38 pg 25-34 Automated erythrocyte mean corpuscular h emoglobin concentration measurement (mass/volume) 37 g/dL 32-36 Automated erythrocyte distribution width ratio 13. 2 % 10.0- 14.5 Automated blood platelet count (count/volume) 174 10*3/uL 130-400 Automated blood platelet mean volume measurement 9.2 [foz_us] 7.4-10.4 Automated blood neutrophils/100 leukocytes 63 % 42-75 Automated blood lymphocytes/100 leukocytes 24 % 12-44 Blood monocytes/100 leukocytes 12 % 0-12 Automated blood eosinophils/100 leukocytes 2 % 0-10 Automated blood basophils/100 leukocytes 0 % 0-10 Blood neutrophils automated count (number/volume) 5.1 10*3 1.8-7.8 Blood lymphocytes automated count (number/volume) 2.0 10*3 1.0-4.0 Blood monocytes automated count (number/volume) 1. 0 10*3 0.0-1.0 Automated eosinophil count 0.1 10*3/uL 0 .0-0.3 Automated blood basophil count (count/volume) 0.0 10*3/uL 0.0-0.1 PT panel in platelet poor plasma by coag ulation assay - 05/19/18 22:20 Prothrombin time (PT) in platelet poor plasma by coagu lation assay 14.1 s 12.2-14.7 INR in platelet poor plasma or blood by coagulation as say 1.1 0.8-1.4 Activated partial thromboplastin time (a PTT) in platelet poor plasma bycoagulation assay - 05/19/18 22:20 Activated partial thromboplastin time (a PTT) in platelet poor plasma bycoagulation assay 29 s 24-35 Blood lactic acid measurement (moles/vol ume) - 05/19/18 22:20 Blood lactic acid measurement (moles/volume) 2.56 mmol/L 0.50-2.00 Comprehensive metabolic panel - 05/19/18 22:20 Serum or plasma sodium measurement (moles/volume) 133 mmol/L 135-145 Serum or plasma potassium measurement (moles/volume) 3.8 mmol/L 3.6-5.0 Serum or plasma chloride measurement (moles/volume) 100 mmol/L 98-107 Carbon dioxide 22 mmol/L 21-32 Serum or plasma anion gap determination (moles/volume) 11 mmol/L 5-14 Serum or plasma urea nitrogen measurement (mass/volume ) 11 mg/dL 7-18 Serum or plasma creatinine measurement (mass/volume) 0.94 mg/dL 0.60-1.30 Serum or plasma urea nitrogen/creatinine mass ratio 12 NRG Serum or plasma creatinine measurement w ith calculation of estimated glomerular filtration rate > NRG Serum or plasma glucose measurement (mass/volume) 393 mg/dL 70-105 Serum or plasma calcium measurement (mass/volume) 8.4 mg/dL 8.5-10.1 Serum or plasma total bilirubin measurement (mass/volu me) 0.6 mg/dL 0.1-1.0 Serum or plasma alkaline phosphatase harsh surement (enzymatic activity/volume) 57 U/L 40-136 Serum or plasma aspartate aminotransfera se measurement (enzymatic activity/volume) 16 U/L 5-34 Serum or plasma alanine aminotransferase measurement (enzymatic activity/volume) 19 U/L 0-55 Serum or plasma protein measurement (mass/volume) 6.4 g/dL 6.4-8.2 Serum or plasma albumin measurement (mass/volume) 3.6 g/dL 3.2-4.5 CALCIUM CORRECTED 8.7 mg/dL 8.5-10.1 Magnesium - 05/19/18 22:20 Magnesium 2.2 mg/dL 1.8-2.4 Serum or plasma troponin i.cardiac measu rement (mass/volume) - 05/19/18 22:20 Serum or plasma troponin i.cardiac measurement (mass/v olume) < ng/mL <0.028 Serum or plasma lithium measurement (mol es/volume) - 05/19/18 22:20 BNP level 27.9 pg/mL <100.0 Bacterial blood culture - 05/19/18 22:20 Bacterial blood culture NG NRG Bacterial blood culture - 05/19/18 22:38 Bacterial blood culture NG NRG Serum or plasma lactate measurement (mol es/volume) - 05/20/18 00:18 Serum or plasma lactate measurement (moles/volume) 4.00 mmol/L 0.50-2.00 Capillary blood glucose measurement by g lucometer (mass/volume) - 05/20/18 03:32 Capillary blood glucose measurement by glucometer (mas s/volume) 214 mg/dL 70-110 Comprehensive metabolic panel - 05/20/18 05:20 Serum or plasma sodium measurement (moles/volume) 135 mmol/L 135-145 Serum or plasma potassium measurement (moles/volume) 4.3 mmol/L 3.6-5.0 Serum or plasma chloride measurement (moles/volume) 102 mmol/L 98-107 Carbon dioxide 23 mmol/L 21-32 Serum or plasma anion gap determination (moles/volume) 10 mmol/L 5-14 Serum or plasma urea nitrogen measurement (mass/volume ) 12 mg/dL 7-18 Serum or plasma creatinine measurement (mass/volume) 0.86 mg/dL 0.60-1.30 Serum or plasma urea nitrogen/creatinine mass ratio 14 NRG Serum or plasma creatinine measurement w ith calculation of estimated glomerular filtration rate > NRG Serum or plasma glucose measurement (mass/volume) 264 mg/dL 70-105 Serum or plasma calcium measurement (mass/volume) 8.3 mg/dL 8.5-10.1 Serum or plasma total bilirubin measurement (mass/volu me) 0.5 mg/dL 0.1-1.0 Serum or plasma alkaline phosphatase harsh surement (enzymatic activity/volume) 55 U/L 40-136 Serum or plasma aspartate aminotransfera se measurement (enzymatic activity/volume) 16 U/L 5-34 Serum or plasma alanine aminotransferase measurement (enzymatic activity/volume) 18 U/L 0-55 Serum or plasma protein measurement (mass/volume) 6.5 g/dL 6.4-8.2 Serum or plasma albumin measurement (mass/volume) 3.6 g/dL 3.2-4.5 CALCIUM CORRECTED 8.6 mg/dL 8.5-10.1 Complete blood count (CBC) with automate d white blood cell (WBC) differential - 05/20/18 05:20 Blood leukocytes automated count (number/volume) 7.8 10*3/uL 4.3-11.0 Blood erythrocytes automated count (number/volume) 3.22 10*6/uL 4.35-5.85 Venous blood hemoglobin measurement (mass/volume) 12.2 g/dL 13.3-17.7 Blood hematocrit (volume fraction) 34 % 40-54 Automated erythrocyte mean corpuscular volume 105 [foz_us] 80-99 Automated erythrocyte mean corpuscular h emoglobin (mass per erythrocyte) 38 pg 25-34 Automated erythrocyte mean corpuscular h emoglobin concentration measurement (mass/volume) 36 g/dL 32-36 Automated erythrocyte distribution width ratio 13. 2 % 10.0- 14.5 Automated blood platelet count (count/volume) 171 10*3/uL 130-400 Automated blood platelet mean volume measurement 9.1 [foz_us] 7.4-10.4 Automated blood neutrophils/100 leukocytes 90 % 42-75 Automated blood lymphocytes/100 leukocytes 7 % 12-44 Blood monocytes/100 leukocytes 3 % 0-12 Automated blood eosinophils/100 leukocytes 0 % 0-10 Automated blood basophils/100 leukocytes 0 % 0-10 Blood neutrophils automated count (number/volume) 7.0 10*3 1.8-7.8 Blood lymphocytes automated count (number/volume) 0.5 10*3 1.0-4.0 Blood monocytes automated count (number/volume) 0. 2 10*3 0.0-1.0 Automated eosinophil count 0.0 10*3/uL 0 .0-0.3 Automated blood basophil count (count/volume) 0.0 10*3/uL 0.0-0.1 Complete urinalysis with reflex to cultu re - 05/20/18 07:35 Urine color determination YELLOW NRG Urine clarity determination SLIGHTLY CLOUDY NRG Urine pH measurement by test strip 6 5-9 Specific gravity of urine by test strip 1.015 1.016-1.022 Urine protein assay by test strip, semi-quantitative 2+ NEGATIVE Urine glucose detection by automated test strip 4+ NEGATIVE Erythrocytes detection in urine sediment by light micr oscopy NEGATIVE NEGATIVE Urine ketones detection by automated test strip NE GATIVE NEGATIVE Urine nitrite detection by test strip NEGATIVE NEGATIVE Urine total bilirubin detection by test strip NEGA TIVE NEGATIVE Urine urobilinogen measurement by automated test strip (mass/volume) 1 mg/dL NORMAL Urine leukocyte esterase detection by dipstick NEG ATIVE NEGATIVE Automated urine sediment erythrocyte cou nt by microscopy (number/high power field) NONE NRG Automated urine sediment leukocyte count by microscopy (number/high power field) NONE NRG Bacteria detection in urine sediment by light microsco py NEGATIVE NRG Squamous epithelial cells detection in u rine sediment by light microscopy NONE NRG Crystals detection in urine sediment by light microsco py NONE NRG Casts detection in urine sediment by light microscopy NONE NRG Mucus detection in urine sediment by light microscopy NEGATIVE NRG Complete urinalysis with reflex to culture CULTURE PENDING NRG Bacterial urine culture - 05/20/18 07:35 Bacterial urine culture 3 OR MORE NRG COLONY COUNT 30,000 CFU/ML NRG FTX;REPORTABLE GRAM POSITIVE ISOLATES, SUGGESTING NRG FREE TEXT ENTRY 2 PROBABLE COLLECTION CONTAMINATIO N WITH NRG FREE TEXT ENTRY 3 SKIN BUCK. NO SUSCEPTIBILITY PE RFORMED. NRG Blood lactic acid measurement (moles/vol ume) - 05/20/18 11:21 Blood lactic acid measurement (moles/volume) 2.42 mmol/L 0.50-2.00 Arterial blood gas measurement - 9 11:47 Blood pCO2 41 mm[Hg] 35-45 Blood pO2 73 mm[Hg] 79-93 Arterial blood bicarbonate measurement (moles/volume) 25 mmol/L 23-27 Arterial blood base excess by calculation 0.2 mmol /L -2.5-2.5 Arterial blood oxygen saturation measurement 96 % 94-100 * Inhaled oxygen flow rate 2 NRG Arterial blood pH measurement with patient temperature correction 7.39 7.37-7.43 Arterial blood carbon dioxide, total measurement (mole s/volume) 25.8 mmol/L 21.0-31.0 Body site R RAD NRG Assessment of wrist artery patency prior to arterial p uncture YES-POS NRG Setting of ventilation mode NO NR G Measurement of body temperature 98.2 NRG Serum or plasma lactate measurement (mol es/volume) - 05/20/18 13:41 Serum or plasma lactate measurement (moles/volume) 4.77 mmol/L 0.50-2.00 Blood lactic acid measurement (moles/vol ume) - 05/20/18 17:49 Blood lactic acid measurement (moles/volume) 1.35 mmol/L 0.50-2.00 Complete blood count (CBC) with automate d white blood cell (WBC) differential - 05/21/18 06:05 Blood leukocytes automated count (number/volume) 12.8 10*3/uL 4.3-11.0 Blood erythrocytes automated count (number/volume) 3.33 10*6/uL 4.35-5.85 Venous blood hemoglobin measurement (mass/volume) 12.6 g/dL 13.3-17.7 Blood hematocrit (volume fraction) 35 % 40-54 Automated erythrocyte mean corpuscular volume 105 [foz_us] 80-99 Automated erythrocyte mean corpuscular h emoglobin (mass per erythrocyte) 38 pg 25-34 Automated erythrocyte mean corpuscular h emoglobin concentration measurement (mass/volume) 36 g/dL 32-36 Automated erythrocyte distribution width ratio 13. 3 % 10.0- 14.5 Automated blood platelet count (count/volume) 188 10*3/uL 130-400 Automated blood platelet mean volume measurement 9.1 [foz_us] 7.4-10.4 Automated blood neutrophils/100 leukocytes 72 % 42-75 Automated blood lymphocytes/100 leukocytes 18 % 12-44 Blood monocytes/100 leukocytes 9 % 0-12 Automated blood eosinophils/100 leukocytes 0 % 0-10 Automated blood basophils/100 leukocytes 0 % 0-10 Blood neutrophils automated count (number/volume) 9.2 10*3 1.8-7.8 Blood lymphocytes automated count (number/volume) 2.4 10*3 1.0-4.0 Blood monocytes automated count (number/volume) 1. 2 10*3 0.0-1.0 Automated eosinophil count 0.1 10*3/uL 0 .0-0.3 Automated blood basophil count (count/volume) 0.0 10*3/uL 0.0-0.1 Comprehensive metabolic panel - 05/21/18 06:05 Serum or plasma sodium measurement (moles/volume) 135 mmol/L 135-145 Serum or plasma potassium measurement (moles/volume) 3.9 mmol/L 3.6-5.0 Serum or plasma chloride measurement (moles/volume) 99 mmol/L 98-107 Carbon dioxide 28 mmol/L 21-32 Serum or plasma anion gap determination (moles/volume) 8 mmol/L 5-14 Serum or plasma urea nitrogen measurement (mass/volume ) 15 mg/dL 7-18 Serum or plasma creatinine measurement (mass/volume) 0.73 mg/dL 0.60-1.30 Serum or plasma urea nitrogen/creatinine mass ratio 21 NRG Serum or plasma creatinine measurement w ith calculation of estimated glomerular filtration rate > NRG Serum or plasma glucose measurement (mass/volume) 211 mg/dL 70-105 Serum or plasma calcium measurement (mass/volume) 8.6 mg/dL 8.5-10.1 Serum or plasma total bilirubin measurement (mass/volu me) 0.4 mg/dL 0.1-1.0 Serum or plasma alkaline phosphatase harsh surement (enzymatic activity/volume) 56 U/L 40-136 Serum or plasma aspartate aminotransfera se measurement (enzymatic activity/volume) 16 U/L 5-34 Serum or plasma alanine aminotransferase measurement (enzymatic activity/volume) 19 U/L 0-55 Serum or plasma protein measurement (mass/volume) 6.3 g/dL 6.4-8.2 Serum or plasma albumin measurement (mass/volume) 3.6 g/dL 3.2-4.5 CALCIUM CORRECTED 8.9 mg/dL 8.5-10.1 Capillary blood glucose measurement by g lucometer (mass/volume) - 05/21/18 11:11 Capillary blood glucose measurement by glucometer (mas s/volume) 278 mg/dL 70-110 Complete blood count (CBC) with automate d white blood cell (WBC) differential - 05/22/18 05:41 Blood leukocytes automated count (number/volume) 7.8 10*3/uL 4.3-11.0 Blood erythrocytes automated count (number/volume) 3.65 10*6/uL 4.35-5.85 Venous blood hemoglobin measurement (mass/volume) 13.9 g/dL 13.3-17.7 Blood hematocrit (volume fraction) 38 % 40-54 Automated erythrocyte mean corpuscular volume 104 [foz_us] 80-99 Automated erythrocyte mean corpuscular h emoglobin (mass per erythrocyte) 38 pg 25-34 Automated erythrocyte mean corpuscular h emoglobin concentration measurement (mass/volume) 37 g/dL 32-36 Automated erythrocyte distribution width ratio 13. 5 % 10.0- 14.5 Automated blood platelet count (count/volume) 158 10*3/uL 130-400 Automated blood platelet mean volume measurement 9.4 [foz_us] 7.4-10.4 Automated blood neutrophils/100 leukocytes 50 % 42-75 Automated blood lymphocytes/100 leukocytes 37 % 12-44 Blood monocytes/100 leukocytes 10 % 0-12 Automated blood eosinophils/100 leukocytes 2 % 0-10 Automated blood basophils/100 leukocytes 1 % 0-10 Blood neutrophils automated count (number/volume) 3.9 10*3 1.8-7.8 Blood lymphocytes automated count (number/volume) 2.9 10*3 1.0-4.0 Blood monocytes automated count (number/volume) 0. 8 10*3 0.0-1.0 Automated eosinophil count 0.2 10*3/uL 0 .0-0.3 Automated blood basophil count (count/volume) 0.1 10*3/uL 0.0-0.1 Comprehensive metabolic panel - 05/22/18 05:41 Serum or plasma sodium measurement (moles/volume) 137 mmol/L 135-145 Serum or plasma potassium measurement (moles/volume) 4.5 mmol/L 3.6-5.0 Serum or plasma chloride measurement (moles/volume) 102 mmol/L 98-107 Carbon dioxide 25 mmol/L 21-32 Serum or plasma anion gap determination (moles/volume) 10 mmol/L 5-14 Serum or plasma urea nitrogen measurement (mass/volume ) 14 mg/dL 7-18 Serum or plasma creatinine measurement (mass/volume) 0.76 mg/dL 0.60-1.30 Serum or plasma urea nitrogen/creatinine mass ratio 18 NRG Serum or plasma creatinine measurement w ith calculation of estimated glomerular filtration rate > NRG Serum or plasma glucose measurement (mass/volume) 204 mg/dL 70-105 Serum or plasma calcium measurement (mass/volume) 8.4 mg/dL 8.5-10.1 Serum or plasma total bilirubin measurement (mass/volu me) 0.4 mg/dL 0.1-1.0 Serum or plasma alkaline phosphatase harsh surement (enzymatic activity/volume) 56 U/L 40-136 Serum or plasma aspartate aminotransfera se measurement (enzymatic activity/volume) 23 U/L 5-34 Serum or plasma alanine aminotransferase measurement (enzymatic activity/volume) 21 U/L 0-55 Serum or plasma protein measurement (mass/volume) 6.3 g/dL 6.4-8.2 Serum or plasma albumin measurement (mass/volume) 3.6 g/dL 3.2-4.5 CALCIUM CORRECTED 8.7 mg/dL 8.5-10.1 Complete urinalysis with reflex to cultu re - 06/29/18 10:25 Urine color determination YELLOW NRG Urine clarity determination CLEAR NR G Urine pH measurement by test strip 8.5 5-9 Specific gravity of urine by test strip 1.010 1.016-1.022 Urine protein assay by test strip, semi-quantitative NEGATIVE NEGATIVE Urine glucose detection by automated test strip 1+ NEGATIVE Erythrocytes detection in urine sediment by light micr oscopy NEGATIVE NEGATIVE Urine ketones detection by automated test strip NE GATIVE NEGATIVE Urine nitrite detection by test strip NEGATIVE NEGATIVE Urine total bilirubin detection by test strip NEGA TIVE NEGATIVE Urine urobilinogen measurement by automated test strip (mass/volume) 0.2 mg/dL NORMAL Urine leukocyte esterase detection by dipstick NEG ATIVE NEGATIVE Automated urine sediment erythrocyte cou nt by microscopy (number/high power field) NONE NRG Automated urine sediment leukocyte count by microscopy (number/high power field) RARE NRG Bacteria detection in urine sediment by light microsco py NEGATIVE NRG Squamous epithelial cells detection in u rine sediment by light microscopy 5-10 NRG Crystals detection in urine sediment by light microsco py NONE NRG Casts detection in urine sediment by light microscopy NONE NRG Mucus detection in urine sediment by light microscopy NEGATIVE NRG Complete urinalysis with reflex to culture NO NRG Complete urinalysis with reflex to cultu re - 07/07/18 11:30 Urine color determination YELLOW NRG Urine clarity determination CLEAR NR G Urine pH measurement by test strip 7.0 5-9 Specific gravity of urine by test strip <= 1.016-1.022 Urine protein assay by test strip, semi-quantitative NEGATIVE NEGATIVE Urine glucose detection by automated test strip TR LEWIS NEGATIVE Erythrocytes detection in urine sediment by light micr oscopy NEGATIVE NEGATIVE Urine ketones detection by automated test strip NE GATIVE NEGATIVE Urine nitrite detection by test strip NEGATIVE NEGATIVE Urine total bilirubin detection by test strip NEGA TIVE NEGATIVE Urine urobilinogen measurement by automated test strip (mass/volume) 0.2 mg/dL NORMAL Urine leukocyte esterase detection by dipstick NEG ATIVE NEGATIVE Automated urine sediment erythrocyte cou nt by microscopy (number/high power field) NONE NRG Automated urine sediment leukocyte count by microscopy (number/high power field) NONE NRG Bacteria detection in urine sediment by light microsco py NEGATIVE NRG Squamous epithelial cells detection in u rine sediment by light microscopy 0-2 NRG Crystals detection in urine sediment by light microsco py NONE NRG Casts detection in urine sediment by light microscopy NONE NRG Mucus detection in urine sediment by light microscopy NONE NRG Complete urinalysis with reflex to culture NO NRG Complete urinalysis with reflex to cultu re - 07/10/18 18:49 Urine color determination YELLOW NRG Urine clarity determination CLEAR NR G Urine pH measurement by test strip 8.0 5-9 Specific gravity of urine by test strip 1.010 1.016-1.022 Urine protein assay by test strip, semi-quantitative NEGATIVE NEGATIVE Urine glucose detection by automated test strip NE GATIVE NEGATIVE Erythrocytes detection in urine sediment by light micr oscopy NEGATIVE NEGATIVE Urine ketones detection by automated test strip NE GATIVE NEGATIVE Urine nitrite detection by test strip NEGATIVE NEGATIVE Urine total bilirubin detection by test strip NEGA TIVE NEGATIVE Urine urobilinogen measurement by automated test strip (mass/volume) 0.2 mg/dL NORMAL Urine leukocyte esterase detection by dipstick NEG ATIVE NEGATIVE Automated urine sediment erythrocyte cou nt by microscopy (number/high power field) NONE NRG Automated urine sediment leukocyte count by microscopy (number/high power field) [HPF] NRG Bacteria detection in urine sediment by light microsco py TRACE NRG Squamous epithelial cells detection in u rine sediment by light microscopy NONE NRG Crystals detection in urine sediment by light microsco py NONE NRG Casts detection in urine sediment by light microscopy NONE NRG Mucus detection in urine sediment by light microscopy NONE NRG Complete urinalysis with reflex to culture NO NRG Complete blood count (CBC) with automate d white blood cell (WBC) differential - 07/10/18 18:52 Blood leukocytes automated count (number/volume) 7.9 10*3/uL 4.3-11.0 Blood erythrocytes automated count (number/volume) 3.61 10*6/uL 4.35-5.85 Venous blood hemoglobin measurement (mass/volume) 13.6 g/dL 13.3-17.7 Blood hematocrit (volume fraction) 37 % 40-54 Automated erythrocyte mean corpuscular volume 101 [foz_us] 80-99 Automated erythrocyte mean corpuscular h emoglobin (mass per erythrocyte) 38 pg 25-34 Automated erythrocyte mean corpuscular h emoglobin concentration measurement (mass/volume) 37 g/dL 32-36 Automated erythrocyte distribution width ratio 11. 7 % 10.0- 14.5 Automated blood platelet count (count/volume) 179 10*3/uL 130-400 Automated blood platelet mean volume measurement 9.0 [foz_us] 7.4-10.4 Automated blood neutrophils/100 leukocytes 39 % 42-75 Automated blood lymphocytes/100 leukocytes 46 % 12-44 Blood monocytes/100 leukocytes 10 % 0-12 Automated blood eosinophils/100 leukocytes 3 % 0-10 Automated blood basophils/100 leukocytes 1 % 0-10 Blood neutrophils automated count (number/volume) 3.1 10*3 1.8-7.8 Blood lymphocytes automated count (number/volume) 3.6 10*3 1.0-4.0 Blood monocytes automated count (number/volume) 0. 8 10*3 0.0-1.0 Automated eosinophil count 0.3 10*3/uL 0 .0-0.3 Automated blood basophil count (count/volume) 0.1 10*3/uL 0.0-0.1 PT panel in platelet poor plasma by coag ulation assay - 07/10/18 18:52 Prothrombin time (PT) in platelet poor plasma by coagu lation assay 14.1 s 12.2-14.7 INR in platelet poor plasma or blood by coagulation as say 1.1 0.8-1.4 Activated partial thromboplastin time (a PTT) in platelet poor plasma bycoagulation assay - 07/10/18 18:52 Activated partial thromboplastin time (a PTT) in platelet poor plasma bycoagulation assay 25 s 24-35 Comprehensive metabolic panel - 07/10/18 18:52 Serum or plasma sodium measurement (moles/volume) 137 mmol/L 135-145 Serum or plasma potassium measurement (moles/volume) 3.4 mmol/L 3.6-5.0 Serum or plasma chloride measurement (moles/volume) 99 mmol/L 98-107 Carbon dioxide 25 mmol/L 21-32 Serum or plasma anion gap determination (moles/volume) 13 mmol/L 5-14 Serum or plasma urea nitrogen measurement (mass/volume ) 10 mg/dL 7-18 Serum or plasma creatinine measurement (mass/volume) 0.67 mg/dL 0.60-1.30 Serum or plasma urea nitrogen/creatinine mass ratio 15 NRG Serum or plasma creatinine measurement w ith calculation of estimated glomerular filtration rate > NRG Serum or plasma glucose measurement (mass/volume) 121 mg/dL 70-105 Serum or plasma calcium measurement (mass/volume) 8.5 mg/dL 8.5-10.1 Serum or plasma total bilirubin measurement (mass/volu me) 0.7 mg/dL 0.1-1.0 Serum or plasma alkaline phosphatase harsh surement (enzymatic activity/volume) 57 U/L 40-136 Serum or plasma aspartate aminotransfera se measurement (enzymatic activity/volume) 21 U/L 5-34 Serum or plasma alanine aminotransferase measurement (enzymatic activity/volume) 21 U/L 0-55 Serum or plasma protein measurement (mass/volume) 6.6 g/dL 6.4-8.2 Serum or plasma albumin measurement (mass/volume) 3.9 g/dL 3.2-4.5 CALCIUM CORRECTED 8.6 mg/dL 8.5-10.1 TROPONIN T - 07/10/18 18:52 TROPONIN T 10 % <=15 PROBNP FS - 07/10/18 18:52 PROBNP FS 60.2 pg/mL <75.0 Complete urinalysis with reflex to cultu re - 08/22/18 19:48 Urine color determination YELLOW NRG Urine clarity determination SLIGHTLY CLOUDY NRG Urine pH measurement by test strip 6 5-9 Specific gravity of urine by test strip 1.015 1.016-1.022 Urine protein assay by test strip, semi-quantitative 1+ NEGATIVE Urine glucose detection by automated test strip 2+ NEGATIVE Erythrocytes detection in urine sediment by light micr oscopy NEGATIVE NEGATIVE Urine ketones detection by automated test strip NE GATIVE NEGATIVE Urine nitrite detection by test strip NEGATIVE NEGATIVE Urine total bilirubin detection by test strip NEGA TIVE NEGATIVE Urine urobilinogen measurement by automated test strip (mass/volume) 1 mg/dL NORMAL Urine leukocyte esterase detection by dipstick NEG ATIVE NEGATIVE Automated urine sediment erythrocyte cou nt by microscopy (number/high power field) NONE NRG Automated urine sediment leukocyte count by microscopy (number/high power field) NONE NRG Bacteria detection in urine sediment by light microsco py NEGATIVE NRG Squamous epithelial cells detection in u rine sediment by light microscopy RARE NRG Crystals detection in urine sediment by light microsco py NONE NRG Casts detection in urine sediment by light microscopy NONE NRG Mucus detection in urine sediment by light microscopy NEGATIVE NRG Complete urinalysis with reflex to culture NO NRG Capillary blood glucose measurement by g lucometer (mass/volume) - 08/22/18 19:54 Capillary blood glucose measurement by glucometer (mas s/volume) 193 mg/dL 70-110 CMP - 09/06/18 11:19 GLUCOSE 202 mg/dL 65-99 UREA NITROGEN (BUN) 11 mg/dL 7-25 CREATININE 0.70 mg/dL 0.70-1.11 eGFR NON-AFR. [place] 85 mL/min/1.73m2 > OR = 60 eGFR 98 mL/min/1.73m2 > OR = 60 BUN/CREATININE RATIO NOT APPLICABLE (calc) 6-22 SODIUM 136 mmol/L 135-146 POTASSIUM 4.0 mmol/L 3.5-5.3 CHLORIDE 99 mmol/L 98-110 CARBON DIOXIDE 27 mmol/L 20-32 CALCIUM 8.7 mg/dL 8.6-10.3 PROTEIN, TOTAL 6.6 g/dL 6.1-8.1 ALBUMIN 4.1 g/dL 3.6-5.1 GLOBULIN 2.5 g/dL (calc) 1.9-3.7 ALBUMIN/GLOBULIN RATIO 1.6 (calc) 1.0-2. 5 BILIRUBIN, TOTAL 0.6 mg/dL 0.2-1.2 ALKALINE PHOSPHATASE 57 U/L 40-115 AST 20 U/L 10-35 ALT 26 U/L 9-46 A1C - 09/06/18 11:19 HEMOGLOBIN A1c 6.2 % of total Hgb <5.7 Complete urinalysis with reflex to cultu re - 10/08/18 16:35 Urine color determination YELLOW NRG Urine clarity determination CLEAR NR G Urine pH measurement by test strip 6.5 5-9 Specific gravity of urine by test strip 1.010 1.016-1.022 Urine protein assay by test strip, semi-quantitative NEGATIVE NEGATIVE Urine glucose detection by automated test strip NE GATIVE NEGATIVE Erythrocytes detection in urine sediment by light micr oscopy NEGATIVE NEGATIVE Urine ketones detection by automated test strip NE GATIVE NEGATIVE Urine nitrite detection by test strip NEGATIVE NEGATIVE Urine total bilirubin detection by test strip NEGA TIVE NEGATIVE Urine urobilinogen measurement by automated test strip (mass/volume) 0.2 mg/dL NORMAL Urine leukocyte esterase detection by dipstick NEG ATIVE NEGATIVE Automated urine sediment erythrocyte cou nt by microscopy (number/high power field) NONE NRG Automated urine sediment leukocyte count by microscopy (number/high power field) RARE NRG Bacteria detection in urine sediment by light microsco py NEGATIVE NRG Squamous epithelial cells detection in u rine sediment by light microscopy RARE NRG Crystals detection in urine sediment by light microsco py NONE NRG Casts detection in urine sediment by light microscopy NONE NRG Mucus detection in urine sediment by light microscopy NONE NRG Complete urinalysis with reflex to culture NO NRG CULTURE, URINE - 01/24/19 12:03 CULTURE, URINE, ROUTINE SEE NOTE NRG DILANTIN - 03/07/19 10:10 PHENYTOIN 16.5 mg/L 10.0-20.0 Complete blood count (CBC) with automate d white blood cell (WBC) differential - 04/05/19 06:30 Blood leukocytes automated count (number/volume) 6.0 10*3/uL 4.3-11.0 Blood erythrocytes automated count (number/volume) 3.58 10*6/uL 4.35-5.85 Venous blood hemoglobin measurement (mass/volume) 13.6 g/dL 13.3-17.7 Blood hematocrit (volume fraction) 38 % 40-54 Automated erythrocyte mean corpuscular volume 105 [foz_us] 80-99 Automated erythrocyte mean corpuscular h emoglobin (mass per erythrocyte) 38 pg 25-34 Automated erythrocyte mean corpuscular h emoglobin concentration measurement (mass/volume) 36 g/dL 32-36 Automated erythrocyte distribution width ratio 12. 9 % 10.0- 14.5 Automated blood platelet count (count/volume) 196 10*3/uL 130-400 Automated blood platelet mean volume measurement 9.2 [foz_us] 7.4-10.4 Automated blood neutrophils/100 leukocytes 50 % 42-75 Automated blood lymphocytes/100 leukocytes 35 % 12-44 Blood monocytes/100 leukocytes 10 % 0-12 Automated blood eosinophils/100 leukocytes 4 % 0-10 Automated blood basophils/100 leukocytes 1 % 0-10 Blood neutrophils automated count (number/volume) 3.0 10*3 1.8-7.8 Blood lymphocytes automated count (number/volume) 2.1 10*3 1.0-4.0 Blood monocytes automated count (number/volume) 0. 6 10*3 0.0-1.0 Automated eosinophil count 0.2 10*3/uL 0 .0-0.3 Automated blood basophil count (count/volume) 0.0 10*3/uL 0.0-0.1 Complete urinalysis with reflex to cultu re - 04/05/19 06:30 Urine color determination YELLOW NRG Urine clarity determination CLEAR NR G Urine pH measurement by test strip 8.0 5-9 Specific gravity of urine by test strip 1.010 1.016-1.022 Urine protein assay by test strip, semi-quantitative NEGATIVE NEGATIVE Urine glucose detection by automated test strip TR LEWIS NEGATIVE Erythrocytes detection in urine sediment by light micr oscopy NEGATIVE NEGATIVE Urine ketones detection by automated test strip NE GATIVE NEGATIVE Urine nitrite detection by test strip NEGATIVE NEGATIVE Urine total bilirubin detection by test strip NEGA TIVE NEGATIVE Urine urobilinogen measurement by automated test strip (mass/volume) 0.2 mg/dL < = 1.0 Urine leukocyte esterase detection by dipstick NEG ATIVE NEGATIVE Automated urine sediment erythrocyte cou nt by microscopy (number/high power field) NONE NRG Automated urine sediment leukocyte count by microscopy (number/high power field) NONE NRG Bacteria detection in urine sediment by light microsco py NEGATIVE NRG Squamous epithelial cells detection in u rine sediment by light microscopy RARE NRG Crystals detection in urine sediment by light microsco py NONE NRG Casts detection in urine sediment by light microscopy NONE NRG Mucus detection in urine sediment by light microscopy NEGATIVE NRG Complete urinalysis with reflex to culture NO NRG PT panel in platelet poor plasma by coag ulation assay - 04/05/19 06:30 Prothrombin time (PT) in platelet poor plasma by coagu lation assay 14.0 s 12.2-14.7 INR in platelet poor plasma or blood by coagulation as say 1.0 0.8-1.4 Activated partial thromboplastin time (a PTT) in platelet poor plasma bycoagulation assay - 04/05/19 06:30 Activated partial thromboplastin time (a PTT) in platelet poor plasma bycoagulation assay 22 s 24-35 Comprehensive metabolic panel - 04/05/19 06:30 Serum or plasma sodium measurement (moles/volume) 138 mmol/L 135-145 Serum or plasma potassium measurement (moles/volume) 4.3 mmol/L 3.6-5.0 Serum or plasma chloride measurement (moles/volume) 99 mmol/L 98-107 Carbon dioxide 27 mmol/L 21-32 Serum or plasma anion gap determination (moles/volume) 12 mmol/L 5-14 Serum or plasma urea nitrogen measurement (mass/volume ) 13 mg/dL 7-18 Serum or plasma creatinine measurement (mass/volume) 0.71 mg/dL 0.60-1.30 Serum or plasma urea nitrogen/creatinine mass ratio 18 NRG Serum or plasma creatinine measurement w ith calculation of estimated glomerular filtration rate > NRG Serum or plasma glucose measurement (mass/volume) 187 mg/dL 70-105 Serum or plasma calcium measurement (mass/volume) 8.7 mg/dL 8.5-10.1 Serum or plasma total bilirubin measurement (mass/volu me) 0.5 mg/dL 0.1-1.0 Serum or plasma alkaline phosphatase harsh surement (enzymatic activity/volume) 73 U/L 40-136 Serum or plasma aspartate aminotransfera se measurement (enzymatic activity/volume) 18 U/L 5-34 Serum or plasma alanine aminotransferase measurement (enzymatic activity/volume) 17 U/L 0-55 Serum or plasma protein measurement (mass/volume) 7.0 g/dL 6.4-8.2 Serum or plasma albumin measurement (mass/volume) 4.1 g/dL 3.2-4.5 CALCIUM CORRECTED 8.6 mg/dL 8.5-10.1 TROPONIN I FS - 04/05/19 06:30 TROPONIN I FS < 0.30 <0.30 Encounters ACCT No. Visit Date/Time Discharge Status Pt. Type Provider Facility Loc./Unit Complaint [id number] 03/29/2019 14:15:00 03/29/2019 23:59: 59 CLS Outpatient SELFJOSÉ MIGUEL [facility] [id number] 03/07/2019 17:45:00 Document Registration [id number] 01/24/2019 10:45:00 Document Registration [id number] 09/06/2018 17:30:00 Document Registration [id number] 05/07/2018 09:00:00 Document Registration [id number] 04/05/2019 06:14:00 09:15:00 DIS Emergency KEY BERMUDEZ MD [facility] ER FS FALL [id number] 10/08/2018 17:33:00 23:59:59 CLS Outpatient SELF JOSÉ MIGUEL NUÑEZ [facility] LAB FS N39.15 [id number] 09/05/2018 11:45:00 23:59:59 CLS Preadmit EMMA ANDREWS [facility] CARD CAD [id number] 08/22/2018 19:36:00 21:50:00 DIS Emergency HIPOLITO AMANDA [facility] ER LEG SWELLING [id number] 07/10/2018 17:34:00 21:15:00 DIS Emergency JEREMIAS BERKOWITZ MD [facility] ER FS STROKE SYMPTOMS [id number] 07/07/2018 14:39:00 019 23:59:59 CLS Outpatient MICHELLE NUÑEZ, TASNEEM Gaspar [facility] LAB FS [id number] 06/29/2018 09:26:00 019 14:20:00 DIS Emergency BLAYNE NUÑEZ, THOMAS He [facility] ER FS BOWEL CONSTIPATION; HOMERO SEA [id number] 05/19/2018 23:15:00 019 13:56:00 DIS Inpatient KADE DE LEÓN MD [facility] 4TH PNEUMONIA; HYPOXIA; DIABETES;APHASIA DEMENTIA [id number] 11/21/2017 23:47:00 018 15:16:00 DIS Inpatient MANJU DASILVA MD [facility] 4TH UROSEPSIS,HEMATURIA ACU TE [id number] 07/20/2016 07:33:00 017 23:59:59 CLS Outpatient JOVANI ANDREWS [facility] CARD I63.8,I65.2 3,E78.2 [id number] 05/04/2016 10:32:00 017 11:15:00 DIS Inpatient RACHAEL THEODORE MD [facility] IRF CVA [id number] 05/02/2016 17:37:00 017 10:32:00 DIS Inpatient MANJU DASILVA MD [facility] 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
--- NOTE | 2019-06-11 10:40 | Diagnostic Imaging Report ---
INDICATION: Right rib pain. TECHNIQUE: 4 views of the right ribs were obtained. COMPARISON: CT chest on 04/05/2019. FINDINGS: No acute displaced right-sided rib fractures are seen. The previously described nondisplaced fracture involving the anterior aspect of the right 5th rib is not well demonstrated on this exam. The included right lung is clear. No evidence of pleural effusion or pneumothorax. IMPRESSION: 1. No acute displaced right-sided rib fractures. No pneumothorax. Dictated by: Dictated on workstation # [id number]
[2019-06-11] MEDS ORDERED: BENZ100C18 PO (10:48)
--- NOTE | 2019-06-11 10:55 | NUR ---
This RN called and spoke with Ciara at [facility]. Report was given. She stated she would have Isaura come and pick the pt up. Pt taken to waiting room in per his choice. Discharge paperwork with pt.
[2019-06-11 10:59] VITALS: BP 146/57
[2019-06-12] MEDS ORDERED: POLY17PO6 PO (14:16)
== END 2019-06-11 10:59 ==
LOC: EDUNIT# 09:31 → ER FS 09:33
DX: S20.211A Contusion of right front wall of thorax, initial encounter (principal); J42 Unspecified chronic bronchitis; I10 Essential (primary) hypertension; E78.00 Pure hypercholesterolemia, unspecified; I25.2 Old myocardial infarction; I25.10 Atherosclerotic heart disease of native coronary artery without angina pectoris; E11.40 Type 2 diabetes mellitus with diabetic neuropathy, unspecified; F32.9 Major depressive disorder, single episode, unspecified; Z86.73 Personal history of transient ischemic attack (TIA), and cerebral infarction without residual deficits; Z95.5 Presence of coronary angioplasty implant and graft; Z88.8 Allergy status to other drugs, medicaments and biological substances; Z79.82 Long term (current) use of aspirin; Z79.01 Long term (current) use of anticoagulants; Z79.84 Long term (current) use of oral hypoglycemic drugs; Z82.49 Family history of ischemic heart disease and other diseases of the circulatory system; V00.811A Fall from moving wheelchair (powered), initial encounter
CPT/HCPCS: 71100

== ENCOUNTER 2019-06-12 13:06 | Emergency (ER) | payer MEDICARE ==
[~2019-06-12] VITALS: Ht 177.8 cm; Wt 90.9 kg
[~2019-06-12 13:06] MED LIST changes: +BENZ100C18 PO
--- OUTSIDE RECORDS SUMMARY | 2019-06-12 13:21 | XMS REPORT ---
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 Machine Name Role Phone NO, LOCAL PHYSICIAN Unavailable [...] RIDER, RUBY K Unavailable Unavailable VASILIY, HIPOLITO DIRECTOR OF VIDEO ANALYTICS Unavailable Unavailable JEREMIAS BERKOWITZ Unavailable Unavailable SELF, [...] MANJU DASILVA Not Available (20 sources.) MD ([id number]) Translations: [ Allergy to Substance, Propensity to adverse reactions] Drug Allergy donepezil donepezil 11-22-2017 - Unknown MANJU RED Not Available (20 sources.) Translations: MD ([id number]) Translations: [ Donepezil, [ Allergy to Donepezil Substance, hydrochloride Drug allergy] 10 MG Disintegrating Oral Tablet, DONEPEZIL HCL] Propensity to Unclassified IODINATED 03-25-2019 - D[facility] reactions (1 AND IV DYE of [place] source[place] ([address]36) Drug Allergy Iodine (and iodine 11-22-2017 - iodine MANJU Shaikh DGFELICIANO Not Available (20 sources.) Iodine Translations: ([id number]) MD ( 35287) Translations: containting [ iodine [ Allergy to drugs) ([id number])] Substance] DA (20 Unclassified No Known Drug 01-16-2011 - no information MANJU DASILVA Not Available sources.) Allergies , (75013) Medications Current Medications Medication Ingredient Drug Dose [...] HCl 500 MG] sources.) nystatin Nystatin Polyene 965794 11-21-19 Active no no no 136759 Translation Antifungal [IU]/m 18 information informati on name unt/ml s: [ L (no topical Nystatin phone) cream (1 735148 source.) UNIT/GM] no [place]away no 01-17-20 Active no Onaway no information 3-Dha-Epa-F information 17 information 3-Dha- Epa-Fi name (1 source.) khloe Oil sh Oil 1,000 (no 1,000 Mg Mg (120 phone) (120 Mg-180 Mg-180 Mg) Mg) Capsule Capsule 1999Jan, Active polyethylen POLYETHYLEN Osmotic 17 g 10-04-19 Active no no no e glycol E GLYCOL Laxative 18 information information na me [phone] (no mg powder Translation phone) for oral s: [ solution (2 POLYETHYLEN sources.) E GLYCOL 3350 63461 MG Powder for Oral Solution, Polyethylen e [...] bromide rgic mg/{ac 18 - d information [place] 30 K 0.021 tuate} 05-22-19 Ml [place], 30 [place] mg/actuat 19 Ml Not (no metered Applicable phone) dose nasal Twice A Day spray (2 11/22/17 sources.) Discontinued 1 puff(s) 11-22-2017 Completed take 1 Ipratrop Manju K puff(s ium [place] ) [place] (no nasal 30 Ml phone) route [place] 30 twice Ml NOT daily APPLICAB LE Twice A Day 1 [facility] [place] 1 puff each nostril twice a day 10/10/18 no [place] 3 no 2000 Complete no [place] 3 (no information Polyunsat information mg d information Polyu nsat phone) (1 source.) Fatty Acids Fatty Acids (Fish Oil (Fish Oil 1,000 Mg 1,000 Mg Capsule) Capsule) 1,000 Mg 1,000 Mg Cap Cap 2,000 Mg ORAL Twice A Day phenol 14 phenol no 1 Complete no Phenol (Sore (no mg/ml information spray( d information Throat johnny ne) mucosal s) [place]) 177 spray (1 Ml [place] 1 source.) [place] SUBMUCOSAL Every 2 Hours as needed for [...] JOSÉ MIGUEL SELF Commu nity respiratory respiratory [facility] [facility] infections (2 infection, of [place] sources[place] unspecified [place] (36335) Translations: [ - Viral upper respiratory tract infection J06.9] Anxiety Anxiety 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 Active JEREMIAS SHO V [facility] Via disorders (15 Translations: [place] sources.) [ Anxiety, - Hospital - Anxiety F41.9, [place] PANIC DISORDER (58523) [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 JOSÉ MIGUEL SELF [facility] Via system 63895 [place] disorders (1 Hospital source.) (72922) 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 MANJU CHOU 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 Available of following MD (17827) cerebrovascula cerebral r disease (29 infarction sources.) [...] MIGUEL SELF [facility] Via gastrointestin Translations: 64593 [place] al disorders [ Hospital (3 sources.) Constipation, (78617) unspecified constipation type, Constipation, unspecified constipation type] Other Constipation, 04-05-2019 - Episodic Active OSCAR Yousif [facility] Via gastrointestin unspecified MD [place] pan disorders Translations: Hospital - (14 sources.) [ - [place] Constipation, (36573) unspecified constipation type K59.00] Superficial Contusion of Episodic Active JOSÉ MIGUEL SELF Comm unity injury; left upper [address] [facility] contusion (2 arm, initial of [facility] sources.) encounter [place] () Translations: [ - Contusion of left upper extremity, initial encounter S40.022A] Other lower Cough Episodic Active JOSÉ MIGUEL SELF Communit y respiratory Translations: [address] [facility] disease (2 [ - Cough R05] of [place] sources[place] (05038) 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 KADE DE LEÓN , Not Available dementia and other diseases (05310) amnestic and classified other elsewhere cognitive without disorders (13 behavioral sources.) disturbance Other 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 KADE ARLENE T , Not Available genital prostate, (68840) disorders (13 unspecified sources.) Other skin Disorder of Episodic Active JOSÉ MIGUEL SELF Commun ity disorders (4 the skin and [address] [facility] sources.) subcutaneous of [place], [place] () unspecified Translations: [ - Skin lesion L98.9] Other Dysphagia, 04-05-2019 - Episodic Active RACHAEL THEODORE [facility] Via gastrointestin unspecified MD [place] pan disorders Hospital - (11 sources.) [place] (16102) Epilepsy; Epilepsy, 04-09-2019 - Chronic Active RADHA SALVADOR Via convulsions (2 unspecified, MD [place] sources.) not Hospital - intractable, [place] without status (10323) epilepticus 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 ANUEL COLLINS Community disorders (1 dysphasia [facility] [facility] source.) Translations: of [facility] [ Expressive [place] (87395) aphasia] External cause Fall on same 04-09-2019 - Episodic Active RADHA SALVADOR Via codes: Fall (2 level, MD [place] sources.) unspecified, Hospital - initial [place] encounter (82667) Residual Family history 04-05-2019 - Episodic Active OSCAR MORENO RT , [facility] Via codes; of ischemic MD Tong unclassified heart disease Hospital - (15 sources.) and other [place] diseases of (16343) the circulatory system Fever of Fever, Episodic Active JOSÉ MIGUEL SELF Community unknown origin unspecified [address] [facility] (2 sources.) Translations: of [facility] [ - Fever, [place] (79074) unspecified fever cause R50.9] Other Fracture of 04-09-2019 - Episodic Active KEY BERMUDEZ [facility] Via fractures (4 one rib, right MD [place] sources.) side, initial Hospital - encounter for [place] closed (04535) fracture Genitourinary Gross 04-05-2019 - Episodic Active MANJU HASSAN ERS [facility] Via symptoms and hematuria , MD [place] ill-defined Translations: Hospital - conditions (22 [ RETENTION OF [place] sources.) URINE, (98763) UNSPECIFIED, RETENTION OF URINE, UNSPECIFIED, - Urgency of urination R39.15, FREQUENCY OF MICTURITION] Congestive Heart failure, 04-09-2019 - Chronic Active KEY SWAN [facility] Via heart failure; unspecified MD [place] nonhypertensiv Hospital - e (2 sources.) [place] (81400) Hypertension Hypertensive 04-09-2019 - Chronic Active KEY SWAN [facility] Via with heart disease MD [place] complications with heart Hospital - and secondary failure [place] hypertension (43719) (2 sources.) Other lower Hypoxemia 04-05-2019 - Episodic Active KADE DE LEÓN , Not Available respiratory (83816) disease (13 sources.) Other lower Hypoxia Episodic Active JOSÉ MIGUEL SELF [facility] Via respiratory 94908 [place] disease (2 Hospital sources.) (93259) Residual Localized Episodic Active JOSÉ MIGUEL SELF Community codes; edema [id number] [place] [address] unclassified Translations: of [place] (5 sources.) [ - Lower leg [place] (29599) edema R60.0, - Pedal edema R60.0] Other skin Localized 04-05-2019 - Episodic Active HIPOLITO VASILIY [facility] Via disorders (5 swelling, mass [place] sources.) and lump, Hospital - lower limb, [place] bilateral (82585) 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-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 - 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 Active OSCAR CISNEROS , [facility] Via aftercare (17 (current) use MD Tong sources.) of Hospital - antithrombotic [place] s/antiplatelet (91268) s 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-2019 - Episodic Active OSCAR ENYART , [facility] Via aftercare (17 (current) use MD [place] sources.) of aspirin [facility] (43720) Other snf 04-05-2019 - Episodic Active OSCAR ENYART , [facility] Via aftercare (10 (current) use MD Tong sources.) of insulin [facility] (65564) 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-2019 - 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 Active MANJU DASILVA [facility] Via aftercare (11 (current) use , MD [place] sources.) of oral Hospital hypoglycemic [place] drugs (85242) 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 KADE ZAMORA LT , [facility] Via (16 sources.) depressive MD Tong disorder, [facility] - single [place] episode, (58828) unspecified Disorders of Mixed 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 Active RACHAEL THEODORE , [facility] Via lipid hyperlipidemia MD Tong metabolism (23 Translations: Hospital - sources.) [ [place] HYPERLIPIDEMIA (46841) , UNSPECIFIED, PURE HYPERCHOLESTER OLEMIA, UNSPECIFIED, Pure hypercholester olemia, Pure hypercholester olemia] Other Morbid Chronic Active [place] nutritional; (severe) [address] [facility] endocrine; and obesity due to of [facility] metabolic excess [place] (04446) disorders (4 calories sources.) Translations: [ - Morbid obesity E66.01] Substance-rela Nicotine 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 Active JEREMIAS WEL LER [facility] Via denis [place] cheung (4 sources.) cigarettes, Hospital - uncomplicated [place] (34132) Heart valve Nonrheumatic Chronic Active [facility] Not Taryn ilable disorders (10 mitral (valve) [place] (45130) sources.) insufficiency N , [place] Other Obesity 09-01-2010 - Chronic Active [employer] nutritional; Translations: [address]805 [facility] endocrine; and [ Obesity] of [facility] metabolic [place] (05165) disorders (2 sources.) Residual Obstructive 08-26-2008 - Chronic Active [employer] Community codes; sleep apnea [address]3947 [facility] unclassified syndrome of [facility] (2 sources.) Translations: [place] (88130) [ SOPHIE on CPAP] Occlusion or Occlusion and Chronic Active [facility] Not A vailable stenosis of stenosis of [facility] (55009) precerebral bilateral N , [place] arteries (10 carotid sources.) arteries Coronary 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 KADE DE LEÓN , Not Available atherosclerosi infarction (05241) s and other Translations: heart disease [ ATHSCL HEART (21 sources.) DISEASE OF [place] CORONARY , PRESENCE OF CORONARY ANGIOPLASTY IMPLANT, OLD MYOCARDIAL INFARCTION, OLD MYOCARDIAL INFARCTION, PRESENCE OF CORONARY ANGIOPLASTY IMPLANT] Osteoarthritis Osteoarthritis 12-27-2011 - Chronic Active [employer] (2 sources.) of knee [address]792 [facility] Center Translations: of [facility] [ [place] (45822) Osteoarthritis of left knee] Residual Other amnesia Episodic Active ANUEL LEONARD Comm unity codes; Translations: [address] [place] [address] unclassified [ - Memory of [facility] (1 source.) loss R41.3] [place] (67653) Residual Other 04-05-2019 - Episodic Active OSCAR CISNEROS [facility] Via codes; specified MD [place] unclassified postprocedural Hospital - (9 sources.) [facility] (24455) Transient Other 04-11-2016 - Chronic Active [employer] cerebral transient [id number] [place] [address] Center ischemia (2 cerebral of [facility] sources.) ischemic [place] (06485) attacks and related syndromes Translations: [ Acute anterior circulation transient ischemic attack] Other Pain in left Episodic Active ANUEL Bettsu [place] non-traumatic ankle and 8[address]80 [facility] Center joint joints of left of [facility] disorders (1 foot [place] (87593) source.) Translations: [ - Left ankle pain M25.572] Other Pain in left 04-05-2019 - Episodic Active HIPOLITO VASILIY V [facility] Via connective leg [place] tissue disease Hospital - (5 sources.) [place] (91528) Other nervous Paresthesia of 04-05-2019 - Episodic Active ELEAZAR S SHO [facility] Via system skin [place] disorders (4 Hospital - sources.) [place] (73534) 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 KADE ZAMORA LT , Not Available disease (12 disease (46086) sources.) Disorders of Periapical 04-05-2019 - Episodic Active RACHAEL LIVINGSTON [facility] Via teeth and jaw abscess MD Tong (11 sources.) without sinus Hospital - [place] (05915) Screening and Personal 04-05-2019 - Episodic Active MANJU HASSAN ERS Not Available history of history of , (59947) mental health nicotine and substance dependence abuse codes (20 sources.) Other lower Personal 04-05-2019 - Episodic Active OSCAR CISNEROS , [facility] Via respiratory history of MD [place] disease (6 other diseases Hospital - sources.) of the [place] respiratory (44972) system Other Personal 04-05-2019 - Episodic Active MANJU DASILVA [facility] Via circulatory history of , MD [place] disease (20 transient Hospital - sources.) ischemic [place] attack (TIA), (63818) and cerebral infarction without residual deficits Translations: [ - History of cerebrovascula r accident Z86.73] Pneumonia Pneumonia no information Active JOSÉ MIGUEL [employer] [place] [facility] Via (except that (except that 14924 [place] caused by caused by Hospital tuberculosis tuberculosis (38071) or sexually or sexually transmitted transmitted disease) (1 disease) source.) Pneumonia Pneumonia, 04-05-2019 - Episodic Active KADE DE LEÓN , Not Available (except that unspecified (10212) caused by organism tuberculosis Translations: or sexually [ - Pneumonia transmitted of both lower disease) (19 lobes due to sources.) infectious organism J18.1, - Pneumonia of left lower lobe due to infectious organism J18.1] Other nervous 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 ANDRES DASILVA [facility] Via system , unspecified , MD [place] disorders (13 Hospital - sources.) [place] (56684) 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 KADE DE LEÓN [facility] Via atherosclerosi coronary MD [place] cloud and other angioplasty Hospital - heart disease implant and [place] (16 sources.) graft (81953) Chronic ulcer Pressure ulcer 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 Active ELEAZAR BERKOWITZ [facility] Via of skin (6 of sacral [place] sources.) region, stage Hospital - 2 [place] Translations: (61330) [ Decubitus ulcer of coccyx, stage 2, - Decubitus ulcer of coccyx, stage 2 L89.152] Allergic Radiographic 04-05-2019 - Episodic Active OSCAR CISNEROS , [facility] Via reactions (24 dye allergy MD Tong sources.) status Hospital - Translations: [place] [ ALLERGY (06420) STATUS TO OTH DRUG/MEDS/BIOL SUB] Urinary tract Sepsis due to 04-05-2019 - Episodic Active DUC DASILVA [facility] Via infections (8 urinary tract , MD [place] sources.) infection Hospital - Translations: [place] [ URINARY (45047) TRACT INFECTION, SITE NOT SPECIF] Mycoses (10 Tinea corporis 04-05-2019 - Episodic Active OSCAR AMEZCUA , [facility] Via sources.) Translations: MD [place] [ [facility], - [place] Tinea corporis (35867) B35.4, - Yeast detected B37.9] Other nervous 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 RACHAEL VINCENT , Not Available system neuralgia (93238) disorders (20 sources.) Diabetes Type 2 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 Active RACHAEL THEODORE , [facility] Via mellitus with diabetes MD Tong complications mellitus with Hospital - (20 sources.) diabetic [place] polyneuropathy (62807) Translations: [ TYPE 2 DIABETES W DIABETIC PERIPHERAL AN, TYPE 2 DIABETES MELLITUS WITH DIABETIC N, Type 2 diabetes mellitus with diabetic neuropathy, unspecified whether ferry terminal agent insulin use, - Type 2 diabetes mellitus with diabetic neuropathy, unspecified whether ferry terminal agent insulin use E11.40] Diabetes Type 2 07-09-2015 - Chronic Active MANJU DASILVA [facility] Via mellitus diabetes , MD [place] without mellitus Hospital - complication without [place] (20 sources.) complications (00799) Translations: [ - DM (diabetes mellitus), type 2 E11.9, Diabetes mellitus type II, DM (diabetes mellitus), type 2] Chronic Unspecified 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 Active HIPOLITO AMANDA [facility] Via 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 Hospital - disease and [place] bronchiectasis (98769) (5 sources.) Crushing Unspecified 04-05-2019 - Episodic Active MANJU MARX S [facility] Via injury or injury of , MD [place] internal urethra, Hospital - injury (6 initial [place] sources.) encounter (25860) External cause Unspecified 04-09-2019 - Episodic Active KEY BERMUDEZ , [facility] Via codes: Place place in MD Tong of occurrence [facility] Hospital - (2 sources.) as the place [place] of occurrence (83353) of the external cause Malaise and Weakness 04-05-2019 - Episodic Active JEREMIAS BERKOWITZ [facility] Via fatigue (4 [place] sources.) Hospital - [place] (94254) Unclassified no information no information Active JOSÉ MIGUEL LF Via [place] (9 sources.) [address] [facility] (11415) Past or Other Problems Problem Normalized Date of Normalized Normalized Provider Fac ility Classification Problem(s) Problem Problem Problem Sta tus Onset/Resoluti Duration on Other Abnormal feces 06-02-2009 - Episodic Completed [place] gastrointestin Translations: [id number] [place] [address] al disorders [ Heme of [facility] (2 sources.) positive [place] (98017) stool] 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-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 Completed [place] codes; Translations: [address] [place] [address] unclassified [ Memory loss] of [facility] (2 sources.) [place] (21680) 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 Completed [employer] [facility] system Translations: [address] [place] [address] disorders (2 [ [place] palsy] of [facility] sources.) [place] (67796) 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 [place] disorders (1 dysphasia [address]3093 [facility] source.) Translations: of [facility] [ Expressive [place] (39746) aphasia] Other History of 08-05-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 Completed [place] circulatory cerebrovascula [address] [place], [place] [address]e r disease (2 r accident of [facility] sources.) Translations: [place] (75634) [ History of cerebrovascula r accident] External Home accidents no information no information TYRAFAELE NI ELSEN Not Available Injury - Place , (51003) of occurrence (1 source.) Other snf no information no information MANJU DASILVA Not Available aftercare (21 (current) use , (64329) sources.) of oral hypoglycemic drugs Mood disorders Major no information no information KADE ZAMORA LT , Not Available (14 sources.) depressive (69619) disorder, single episode, unspecified Open wounds of Open wound of Episodic Completed SOPHIE WONG Not Available head; neck; tongue and , (95945) and trunk (1 floor of source.) mouth, without mention of complication External Other external no information no information JSOEE NI ELSEN Not Available Injury - cause status , (76780) Unspecified (1 source.) Residual Other no information no information RADHA CAMPA Via codes; specified MD Tong unclassified postprocedural Hospital - (1 source.) [facility] (39821) Disorders of Pure no information no information KADE DE LEÓN , Not Available lipid hypercholester (45973) metabolism (14 olemia, sources.) unspecified Syncope (2 Syncope and 07-23-2013 - Episodic Completed [facility] Community sources.) collapse [address] [facility] Center Translations: of [facility] [ Syncopal [place] (03718) episodes] Diabetes Type 2 no information no information RACHAEL THEODORE , Not Available mellitus with diabetes (93038) complications mellitus with (20 sources.) diabetic peripheral angiopathy without gangrene Translations: [ TYPE 2 DIABETES MELLITUS WITH DIABETIC N, TYPE 2 DIABETES MELLITUS WITH DIABETIC P] External Unspecified no information no information SOPHIE LIVINGSTON Not Available Injury - accident , (27595) Natural / Environment (1 source.) Unclassified no information no information no information ABHI TERRELL Not Available (1 source.) , (58329) Procedures Procedure Normalized Procedure Procedure Result Performer Facility Date 05-07-2018 Collection venous no information no name (no phone) [facility] blood venipuncture [facility] (77256) 05-07-2018 Comprehensive no information no name (no phone) [facility] metabolic panel [facility] (96192) 05-07-2018 FQ visit new patient no information no name (no p alexa) [facility] (57874) 05-07-2018 Hemoglobin no information no name (no phone) formerly [facility] glycosylated a1c [facility] (31554) 05-16-2016 INSERT OF MONITOR DEV no information no name (no ph one) [facility] Via [facility] INTO CHEST SUBCU/F [facility] (86447) INSERT OF MONITOR DEV no information no name (no phone) Not Available (88845) INTO CHEST SUBCU/F Immunizations Normalized Immunization Date Notes Care Provider Facili ty Immunization tetanus toxoid, 08-22-2018 no information no name [facility] Via [facility] diphtheria [facility] toxoid, and (70602) acellular pertussis vaccine, adsorbed Results Test Name Value Interpretation Reference Range Date Time Fa cility (Normalized) (Normalized) (Medline Reference) No panel information on null BLO no information (no code) [facility] (86554) Exp date 04/2019 (no code) [facility] (82118) KET 01/2019~turbid~o (no code) [facility] Hea lth range~strong~250 [facility] mg/dL~neg~neg [facility] (81329) BREANNA neg~trace (no code) [facility] (67095) Lot # [id number] (no code) [facility] (46072) Lot # [id number] (no code) [facility] (02976) pH (Bld) 7.0 [pH] (no code) 7.38 - 7.42 [pH] [facility] (59293) Protein (U) trace (no code) [facility] [[place]/Vol] [facility] () SG 1.020 (no code) [facility] (20991) URO 1.0 (no code) [facility] (09992) No panel information on 2019-03-07 Phenytoin 16.5 (N) [facility] [[place]/Vol] [facility] () No panel information on 2019-01-24 Bacteria SEE NOTE (A) [facility] identified [facility] (U) [facility] () No panel information on 2018-09-06 Albumin 4.1 g/dL (N) 3.4 - 5.4 g/dL [facility] [[place]/Vol] [facility] (89652) Albumin/Globulin 1.6 {ratio} (N) 1 - 2.5 {ratio} [facility] [Mass ratio] [facility] (09554) ALP [Catalytic 57 U/L (N) 44 - 147 U/L [facility] activity/Vol] [facility] (05265) ALT [Catalytic 26 U/L (N) 4 - 40 U/L [facility] ealth activity/Vol] [facility] (51243) AST [Catalytic 20 U/L (N) 10 - 34 U/L [facility] activity/Vol] [facility] (65119) Bilirubin 0.6 mg/dL (N) 0.1 - 1.2 mg/dL [facility] [Mass/Vol] [facility] (47557) Calcium 8.7 mg/dL (N) 8.5 - 10.2 mg/dL [facility] [Mass/Vol] [facility] (25721) Chloride 99 mmol/L (N) 95 - 106 mmol/L [facility] [Moles/Vol] [facility] (14421) CO2 [Moles/Vol] 27 mmol/L (N) 23 - 29 mmol/L [facility] (26447) Creatinine 0.70 mg/dL (N) [facility] [[place]/Vol] [facility] (26309) GFR/1.73 sq M 98 (N) 90 - 120 [facility] predicted among mL/min/{1.73_m2} mL/min/{1.73_m2} [facility] Center blacks MDRD [facility] (S/P/Bld) [Vol (69699) rate/Area] GFR/1.73 sq 85 (N) 90 - 120 [facility] th M.predicted MDRD mL/min/{1.73_m2} mL/min/{1.73_m2} [facility] (S/P/Bld) [Vol [facility] rate/Area] ([id number]) Globulin (S) 2.5 g/dL (N) 2 - 3.5 g/dL [facility] ealth [Mass/Vol] [facility] (34789) Glucose 202 mg/dL (H) 60 - 125 mg/dL [facility] [Mass/Vol] [facility] (41759) HbA1c (Bld) 6.2 (H) [facility] [Mass fraction] [facility] (77308) Potassium 4.0 mmol/L (N) 3.7 - 5.2 mmol/L [facility] [Moles/Vol] [facility] (61230) Protein 6.6 g/dL (N) 6.4 - 8.3 g/dL [facility] [Mass/Vol] [facility] (12793) Sodium 136 mmol/L (N) 135 - 145 mmol/L [facility] [Moles/Vol] [facility] (15969) Urea nitrogen 11 mg/dL (N) 7 - 20 mg/dL [facility] [Mass/Vol] [facility] (58719) Urea NOT APPLICABLE (no code) [facility] nitrogen/Creatin [facility] [Mass ratio] [facility] (05283) urine urobilinogen measurement by automated test strip (mass/volume) on 2018-06-29 Urobilinogen (U) 0.2 (no code) [facility] [Mass/Vol] [facility] (45936) urine total bilirubin detection by test strip on 2018-06-29 Bilirubin Ql (U) no information (no code) [facility] (83385) urine protein assay by test strip, semi-quantitativ e on 2018-06-29 Protein Ql (U) no information (no code) [facility] (76960) urine ph measurement by test strip on 2018-06-29 pH (U) 8.5 [pH] (no code) 4.6 - 8 [pH] [facility] (63719) urine nitrite detection by test strip on 2018-06-29 Nitrite Ql (U) no information (no code) [facility] (15697) urine leukocyte esterase detection by dipstick on 2018-06-29 Leukocyte no information (no code) [facility] esterase Test [facility] strip Ql (U) (24911) urine ketones detection by automated test strip on 2018-06-29 Ketones Auto no information (no code) [facility] test strip Ql [facility] (U) (51421) urine glucose detection by automated test strip on 2018-06-29 Glucose Auto 1+ (*) [facility] test strip Ql [facility] (U) (61209) urine color determination on 2018-06-29 Color (U) YELLOW (no code) [facility] (42072) urine clarity determination on 2018-06-29 Clarity (U) CLEAR (no code) [facility] (68140) squamous epithelial cells detection in urine sediment by light microscopy on 2018-06-29 Epithelial no information (no code) [facility] cells.squamous [facility] LM Ql (Urine (36101) sed) specific gravity of urine by test strip on 2018-06-29 Specific gravity 1.010 (*) [facility] (U) [Rel [facility] density] (92386) mucus detection in urine sediment by light microscopy on 2018-06-29 Mucus Ql (Urine no information (no code) [facility] sed) [facility] (21665) erythrocytes detection in urine sediment by light microscopy on 2018-06-29 RBC Ql (U) no information (no code) [facility] (07032) crystals detection in urine sediment by light microscopy on 2018-06-29 Crystals LM Ql NONE (no code) [facility] (Urine sed) [facility] (16561) complete urinalysis with reflex to culture on 2018-06-29 Urinalysis NO (no code) [facility] complete W [facility] Reflex Culture (83355) panel - Urine casts detection in urine sediment by light microscopy on 2018-06-29 Casts LM Ql NONE (no code) [facility] (Urine sed) [facility] (28964) bacteria detection in urine sediment by light microscopy on 2018-06-29 Bacteria LM Ql no information (no code) [facility] (Urine sed) [facility] (24951) automated urine sediment leukocyte count by microscopy (number/high power field) on 2018-06-29 WBC LM.HPF RARE (no code) [facility] (Urine sed) [facility] [#/Area] (28884) automated urine sediment erythrocyte count by microscopy (number/high power field) on 2018-06-29 RBC LM.HPF NONE (no code) [facility] (Urine sed) [facility] [#/Area] (41287) No panel information on 2018-05-19 Exp date no information (no code) [facility] Healt h [facility] (32410) No panel information on 2018-05-07 Albumin 4.2 g/dL (N) 3.4 - 5.4 g/dL [facility] [Mass/Vol] [facility] (90294) Albumin/Globulin 1.8 {ratio} (N) 1 - 2.5 {ratio} [facility] [Mass ratio] [facility] (90716) ALP [Catalytic 58 U/L (N) 44 - 147 U/L [facility] activity/Vol] [facility] (22711) ALT [Catalytic 30 U/L (N) 4 - 40 U/L [facility] activity/Vol] [facility] (96175) AST [Catalytic 25 U/L (N) 10 - 34 U/L [facility] activity/Vol] [facility] (47275) Bilirubin 0.5 mg/dL (N) 0.1 - 1.2 mg/dL [facility] [Mass/Vol] [facility] (53014) Calcium 8.9 mg/dL (N) 8.5 - 10.2 mg/dL [facility] [Mass/Vol] [facility] (44254) Chloride 97 mmol/L (L) 95 - 106 mmol/L [facility] [Moles/Vol] [facility] (64665) CO2 [Moles/Vol] 30 mmol/L (N) 23 - 29 mmol/L [facility] (32755) Creatinine 0.72 mg/dL (N) [facility] [Mass/Vol] [facility] (66811) GFR/1.73 sq M 97 (N) 90 - 120 [facility] predicted among mL/min/{1.73_m2} mL/min/{1.73_m2} [facility] blacks MDRD [facility] (S/P/Bld) [Vol (86744) rate/Area] GFR/1.73 sq 84 (N) 90 - 120 [facility] Heal th M.predicted MDRD mL/min/{1.73_m2} mL/min/{1.73_m2} [facility] (S/P/Bld) [Vol [facility] rate/Area] (67126) Globulin (S) 2.3 g/dL (N) 2 - 3.5 g/dL [facility] [Mass/Vol] [facility] (87080) Glucose 180 mg/dL (H) 60 - 125 mg/dL [facility] [Mass/Vol] [facility] (16152) Potassium 4.3 mmol/L (N) 3.7 - 5.2 mmol/L [facility] [Moles/Vol] [facility] (82348) Protein 6.5 g/dL (N) 6.4 - 8.3 g/dL [facility] [Mass/Vol] [facility] (45343) Sodium 134 mmol/L (L) 135 - 145 mmol/L [facility] [Moles/Vol] [facility] (87243) Urea nitrogen 10 mg/dL (N) 7 - 20 mg/dL [facility] [Mass/Vol] [facility] (13746) Urea NOT APPLICABLE (no code) [facility] Healt nitrogen/Creatin [facility] [Mass ratio] [facility] (17139) venous blood hemoglobin measurement (mass/volume) on 2017-11-22 Hemoglobin mass 12.7 g/dL (L) 12.1 - 17.2 g/dL [facility] (71159) serum or plasma urea nitrogen/creatin ine mass ratio on 2017-11-22 Urea 11 mg/mg (no code) 6 - 22 mg/mg [facility] nitrogen/Creatin [facility] ine mass ratio [place] (86025) serum or plasma urea nitrogen measurement (mass/volume) on 2017-11-22 Urea nitrogen 8 mg/dL (no code) 7 - 20 mg/dL [facility] (60485) serum or plasma sodium measurement (moles/volume) on 2017-11-22 Sodium molar 137 mmol/L (no code) 135 - 145 mmol/L [facility] (79306) serum or plasma potassium measurement (moles/volume) on 2017-11-22 Potassium molar 3.8 mmol/L (no code) 3.7 - 5.2 mmol/L [facility] (80817) serum or plasma glucose measurement (mass/volume) on 2017-11-22 Glucose mass 161 mg/dL (H) 60 - 125 mg/dL [facility] (01568) serum or plasma creatinine measurement with calculation of estimated glomerular filtration rate on 2017-11-22 GFR/1.73 sq M no information (no code) [facility] rate/area () (S/P/Bld) serum or plasma creatinine measurement (mass/volume) on 2017-11-22 Creatinine mass 0.73 mg/dL (no code) [facility] () serum or plasma chloride measurement (moles/volume) on 2017-11-22 Chloride molar 108 mmol/L (H) 95 - 106 mmol/L [facility] (32697) serum or plasma calcium measurement (mass/volume) on 2017-11-22 Calcium mass 8.1 mg/dL (L) 8.5 - 10.2 mg/dL [facility] () serum or plasma anion gap determination (moles/volume) on 2017-11-22 Anion gap 3 8 mmol/L (no code) 3 - 11 mmol/L [facility] () carbon dioxide on 2017-11-22 CO2 molar conc 21 mmol/L (no code) 23 - 29 mmol/L [facility] () blood neutrophils automated count (number/volume) on 2017-11-22 Neutrophils Auto 4.6 10*3/uL (no code) 1.7 - 7 10*3/uL [facility] #/vol (Bld) [facility] () blood monocytes/100 leukocytes on 2017-11-22 Monocytes/100 11 % (no code) 2 - 8 % Via [facility] WBC Auto (Bld) [facility] () blood monocytes automated count (number/volume) on 2017-11-22 Monocytes Auto 0.9 10*3/uL (no code) 0.3 - 0.9 [facility] #/vol (Bld) 10*3/uL [facility] (44942) blood lymphocytes automated count (number/volume) on 2017-11-22 Lymphocytes Auto 2.6 10*3/uL (no code) 0.9 - 2.9 [facility] #/vol (Bld) 10*3/uL [facility] () blood leukocytes automated count (number/volume) on 2017-11-22 WBC Auto #/vol 8.3 10*3/uL (no code) 3.5 - 10.5 [facility] (Bld) 10*3/uL [facility] () blood lactic acid measurement (moles/volume) on 2017-11-22 Lactate molar 1.04 mmol/L (no code) 0.5 - 2.2 mmol/L Via risti conc [facility] (55731) blood hematocrit (volume fraction) on 2017-11-22 Hematocrit Auto 33 % (L) 36.1 - 50.3 % [facility] (Bld) [place] (93908) blood erythrocytes automated count (number/volume) on 2017-11-22 RBC Auto #/vol 3.34 10*6/uL (L) 4.2 - 6.1 Via [facility] i (Bld) 10*6/uL [facility] (66981) automated erythrocyte mean corpuscular volume on 2017-11-22 MCV Auto Entitic 99 fL (no code) 80 - 100 fL [facility] volume (RBC) [facility] (94212) automated erythrocyte mean corpuscular hemoglobin concentration measurement (mass/volume) on 2017-11-22 MCHC Auto mass 38 g/dL (H) 32 - 36 g/dL Via [facility] ti conc (RBC) [facility] (98199) automated erythrocyte mean corpuscular hemoglobin (mass per erythrocyte) on 2017-11-22 MCH Auto Entitic 38 pg (H) 27 - 31 pg Via [facility] ti mass (RBC) [facility] (29264) automated erythrocyte distribution width ratio on 2017-11-22 Erythrocyte 12.2 % (no code) 11.6 - 14.6 % [facility] distribution Hospital width Auto Ratio [place] (RBC) (95149) automated eosinophil count on 2017-11-22 Eosinophils Auto 0.2 10*3/uL (no code) 0.05 - 0.5 Via [facility] #/vol (Bld) 10*3/uL [facility] (80152) automated blood platelet mean volume measurement on 2017-11-22 Platelet mean 9.2 fL (no code) 7.2 - 11.7 fL [facility] ti volume Auto Hospital Entitic volume [place] (Bld) (40369) automated blood platelet count (count/volume) on 2017-11-22 Platelets Auto 195 10*3/uL (no code) 150 - 450 [facility] #/vol (Bld) 10*3/uL [facility] (76168) automated blood neutrophils/100 leukocytes on 2017-11-22 Neutrophils/100 55 % (no code) 40 - 60 % [facility] WBC Auto (Bld) [facility] (33017) automated blood lymphocytes/100 leukocytes on 2017-11-22 Lymphocytes/100 31 % (no code) 20 - 40 % [facility] WBC Auto (Bld) [facility] (13199) automated blood eosinophils/100 leukocytes on 2017-11-22 Eosinophils/100 3 % (no code) 1 - 4 % [facility] WBC Auto (Bld) [facility] (59274) automated blood basophils/100 leukocytes on 2017-11-22 Basophils/100 0 % (no code) 0.5 - 1 % [facility] WBC Auto (Bld) [facility] (74137) automated blood basophil count (count/volume) on 2017-11-22 Basophils Auto 0.0 10*3/uL (no code) 0 - 0.3 10*3/uL Via [facility] risti #/vol (Bld) [facility] (57956) Vital Signs Vital Sign Value Interpretation Reference Date Time Care Prov ider Facility (Normalized) (Normalized) Range BMI (Body Mass 31.91 kg/m2 (no code) 15 - 25 kg/m2 05-07-2018 Kamlesh LEONARD [facility]) 11: [address] [place] [address] ([id number]) Body 96.7 [degF] (no code) 97.8 - 99.0 05-07-2018 ANUEL THOMAS [facility] Temperature [degF] 11: [address] [place] [address] (25250) Body weight 92.44 kg (no code) kg 05-07-2018 [facility]: [address] [place] [address] ([id number]) Height 170.2 cm (no code) cm 05-07-2018 ANUELBRIANDA LEONARD [facility] 11: [address] [place] [address] ([id number]) Interventions No Information Plan of Treatment The data below is from unstructured sources Discharge Date 05/04/16 10:32am Disposition 62 DISC/XFER TO IRF Instructions/Education Provided Melvi ng for a Loved One After a Stroke Prescriptions See Medication Section Discharge Date 05/23/16 11:15am Disposition 09 ADMITTED INPATIENT Instructions/Education Provided Melvi ng for a Loved One After a Stroke Forms Provided Rehab Team Conference Summary Prescriptions See Medication Section Additional Instructions/Education Fa ll precautions. Follow up appt with Dr Brizuela [phone] Follow up with Pts Dentist. Care Plan and Goals See Discharge In structions Section Discharge Date 11/22/17 3:16pm Disposition 05 XFER OTHER Instructions/Education Provided Bloo d in the Urine (Hematuria), Adult (DC) Prescriptions See Medication Section Referrals (Unspecified) Entered Date: 11/22/2017 1:39pm Note: APPOINTMENT DR. GOLDEN (PHONE [phone]) Monday11/28/17 @ 3:30 Discharge Date 06/29/18 2:20pm Disposition 01 HOME, SELF-CARE Condition at Discharge Stable Instructions/Education Provided Cons tipation, Adult (DC) Prescriptions See Medication Section Referrals JOSÉ MIGUEL ROSALES MD Order Date: Primary Care Physician Address: [address] [place] [id number] Additional Instructions/Education St ay well hydrated and [...] MAIN Localized edema JOSÉ MIGUEL SELF (no [employer] [facility] [facility] - phone) (no phone) 08-24-2018 - 08-24-2018 [facility]-14-[facility] Acute upper ANUEL LEONARD (n o [facility] - respiratory infection, phone) (no johnny ne) 05-14-2018 unspecified - 05-14-2018 05-07-2018 [facility] 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) (no phone) 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 05-07-2018 12-29-2018 [facility] Pain in left ankle and AUBREY ELAM (no [facility] joints of left foot phone) IN CARE (n o phone) 05-19-2018 [facility] Lobar pneumonia, GLADISRORY ZENDEJAS (no [employer] [facility] - IN CARE unspecified organism phone) IN [place] RE (no phone) 05-19-2018 - 05-19-2018 11-27-2017 [facility] no information Doctor Migrati on (no [facility] - phone) (no phone) 11-27-2017 - 11-27-2017 11-24-2017 [facility] no information Doctor Migrati on (no [facility] - phone) (no phone) 11-24-2017 - 11-24-2017 11-22-2017 [facility] no information Doctor Migrati on (no [facility] - phone) (no phone) 11-22-2017 - 11-22-2017 11-21-2017 [facility] no information Doctor Migrati on (no [facility] - phone) (no phone) 11-21-2017 - 11-21-2017 11-06-2017 [facility] no information Doctor Migrati on (no [facility] - phone) (no phone) 11-06-2017 - 11-06-2017 01-24-2019 Consultation for Urgency of urination JOSÉ MIGUEL SELF (no [employer] [facility] laboratory medicine phone) (no phone) [...] [facility] - patient visit phone) [facility] 04-05-2019 (no phone) 08-22-2018 Emergency department no information no name (no johnny ne) no organization name - patient visit (no phone) 08-22-2018 08-22-2018 Emergency department no information HIPOLITO CHAMORRO (no [facility] - patient visit phone) [facility] 08-22-2018 (no phone) 07-10-2018 Emergency department no information no name (no johnny ne) no organization name patient visit (no phone) 07-10-2018 Emergency department no information JEREMIAS BERKOWITZ MD (no [facility] - patient visit phone) [facility] 07-10-2018 (no phone) 06-29-2018 Emergency department no information OSCAR mcpherson no organization name - patient visit (no phone ) 06-29-2018 06-29-2018 Emergency department no information OSCAR Bueno (no [facility] - patient visit phone) [facility] 06-29-2018 (no phone) 05-19-2018 Emergency department [...] [facility] - management of phone) [facility] 05-22-2018 inpatient (no phone) 11-22-2017 Evaluation and no information MANJU DASILVA Work no organization name - management of (no phone ) 11-22-2017 inpatient 11-21-2017 Evaluation and no information MANJU DASILVA MD (n o [facility] - management of phone) [facility] 11-22-2017 inpatient (no phone) 05-04-2016 Evaluation and no information RACHAEL THEODORE MD (no [facility] - management of phone) [facility] 05-23-2016 inpatient (no phone) 05-02-2016 Evaluation and no information MANJU DASILVA MD (n o [facility] - management of phone) [facility] 05-04-2016 inpatient (no phone) 07-23-2018 Follow-up encounter Anxiety disorder, JOSÉ MIGUEL SELF (no [facility] [facility] - unspecified phone) (no phone) 07-23-2018 - 07-23-2018 05-29-2018 Follow-up encounter Lobar pneumonia, JOSÉ MIGUEL SELF ( no [employer] [facility] - unspecified organism phone) (no phone [...] 04-10-2019 Patient encounter no information (no phone) [facility] procedure [facility] (no phone) 04-05-2019 Patient encounter no information KEY BERMUDEZ MD (no [facility] procedure phone) [facility] (no phone) 03-29-2019 Patient encounter no information JOSÉ MIGUEL Dodd SELF (no [facility] phone) [facility] (no phone) 03-07-2019 Patient encounter no information [...] (n o [facility] procedure phone) [facility] (no phone) 09-06-2018 Patient encounter no information [...] MD (no [facility] procedure phone) [facility] (no phone) 06-29-2018 Patient encounter no information [...] no information JOSÉ MIGUEL SELF [facility] (no phone) 07-07-2018 - [...] encounter no information Doctor Migration (no [facility] phone) (no phone) 2018 - 2018 Medical Equipment No Information Payers Normalized Payer Value Medicare [id number] ([id number]) History general Narrative - Reported Note Type [...] 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 Medical Essential hypertension History Medical Obesity History Medical Memory loss History Medical 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 History Medical Constipation, unspecified c onstipation type History Surgical cardiac stent History [facility] ([id number]) Advance Directives Directive Response Recor ded Date/Time Advance Directives Yes 0 05/02/16 6:33pm Health Care Power of Spindle Setter Yes 05/02/16 6:33pm Organ Donor No 05/02/16 6:33pm Resuscitation Status Full Code 05/02/16 6:33pm Directive Response Recor ded Date/Time Advance Directives Yes 0 05/04/16 11:55am Health Care Power of Spindle Setter Yes 05/04/16 11:55am Organ Donor No 05/04/16 11:55am Resuscitation Status Full Code 05/04/16 11:55am Directive Response Recor ded Date/Time Advance Directives No 10 /09/18 11:50pm Health Care Power of Spindle Setter Y Angela obando (daughter) 11/21/17 11:50pm Organ Donor No 11/21/17 11:50pm Resuscitation Status Full Code 11/21/17 11:50pm Directive Response Recor ded Date/Time Advance Directives No 10:15am Health Care Power of Spindle Setter Y Angela obando (daughter) 11/21/17 11:50pm [...] of the above named patient's need for fci care on a continuing basis for the conditions(s) for which he/she was receiving inpatient hospital services prior to his/her transfer to the SNF. Assisted Facility Order: Nursing Services, [facility] [employer]-Evaluate & Treat, Physical Therapy-Evaluate & Treat, Speech [...] This clinical document has been generated using [employer] software that has been certified by the Office of the National Coordinator for Health Information Technology (ONC 15.99.04.3023.Diam.31.00.0.332104) and the National Committee for Wireless Telegrapher (NCQA, as an eMeasure certified technology). FOR [...] BASED ON T HE PRIMARY CLINICAL RECORDS. [employer]. 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
--- OUTSIDE RECORDS SUMMARY | 2019-06-12 13:22 | XMS REPORT | Continuity of Care Document ---
Author Organization Unknown Address Unknown Phone Unavailable Allergies Active Description Code Type Severity Reaction Onset Reported/Identified Relationship to Patient Clinical Status Yes No Known Drug Allergies [id number] Drug Allergy Unknown N/A 01/16/2011 Yes dapagliflozin [id number] [place] g Allergy Unknown N/A 11/22/2017 Yes donepezil [id number] Drug Allergy Unknown N/A 11/22/2017 Yes iodine [id number] Drug Allergy Unknown N/A 11/22/2017 Medications There [...] INFARCTION 05/04/2016 MANJU DASILVA MD Ot Z79.84 SENIOR LIVING (CURRENT) USE OF ORAL HYPOGLYC 05/11/2016 RACHAEL THEODORE MD Ot 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 05/11/2016 RACHAEL THEODORE MD Ot I10 ESSENTIAL (PRIMARY) HYPERTENSION 05/11/2016 RACHAEL THEODORE MD Ot I25.1 0 ATHSCL HEART DISEASE OF [place] CORONARY 05/11/2016 THEODORE MD, RACHAEL E Ot I25.2 OLD MYOCARDIAL INFARCTION 05/11/2016 RACHAEL THEODORE MD E Ot 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 05/11/2016 RACHAEL THEODORE MD E Ot 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 05/11/2016 RACHAEL THEODORE MD E Ot Z79.8 4 SENIOR LIVING (CURRENT) USE OF ORAL HYPOGLYC 05/11/2016 RACHAEL THEODORE MD E Ot 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 05/11/2016 RACHAEL THEODORE MD E Ot I10 ESSENTIAL (PRIMARY) HYPERTENSION 05/11/2016 RACHAEL THEODORE MD E Ot I25.1 0 ATHSCL HEART DISEASE OF [place] CORONARY 05/11/2016 RACHAEL THEODORE MD Ot I25.2 OLD MYOCARDIAL INFARCTION 05/11/2016 RACHAEL THEODORE MD E Ot 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 05/11/2016 RACHAEL THEODORE MD E Ot 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 05/11/2016 RACHAEL THEODORE MD E Ot Z79.8 4 SENIOR LIVING (CURRENT) USE OF ORAL HYPOGLYC 05/16/2016 RACHAEL THEODORE MD E Ot 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 05/16/2016 RACHAEL THEODORE MD E Ot I10 ESSENTIAL (PRIMARY) HYPERTENSION 05/16/2016 RACHAEL THEODORE MD E Ot I25.1 0 ATHSCL HEART DISEASE OF [place] CORONARY 05/16/2016 RACHAEL THEODORE MD E Ot I25.2 OLD MYOCARDIAL INFARCTION 05/16/2016 RACHAEL THEODORE MD E Ot 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 05/16/2016 RACHAEL THEODORE MD E Ot 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 05/16/2016 RACHAEL THEODORE MD E Ot Z79.8 4 REFERRAL COORDINATOR (CURRENT) USE OF ORAL HYPOGLYC 05/18/2016 RACHAEL THEODORE MD E Ot 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 05/18/2016 RACHAEL THEODORE MD E Ot I10 ESSENTIAL (PRIMARY) HYPERTENSION 05/18/2016 RACHAEL THEODORE MD E Ot I25.1 0 ATHSCL HEART DISEASE OF [place] CORONARY 05/18/2016 RACHAEL THEODORE MD E Ot I25.2 OLD MYOCARDIAL INFARCTION 05/18/2016 RACHAEL THEODORE MD E Ot 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 05/18/2016 RACHAEL THEODORE MD E Ot 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 05/18/2016 RACHAEL THEODORE MD E Ot 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 05/18/2016 RACHAEL THEODORE MD Ot Z79.8 4 REFERRAL COORDINATOR (CURRENT) USE OF ORAL HYPOGLYC 05/18/2016 RACHAEL THEODORE MD Ot 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 05/18/2016 RACHAEL THEODORE MD Ot I10 ESSENTIAL (PRIMARY) HYPERTENSION 05/18/2016 RACHAEL THEODORE MD Ot I25.1 0 ATHSCL HEART DISEASE OF [place] CORONARY 05/18/2016 RACHAEL THEODORE MD Ot I25.2 OLD MYOCARDIAL INFARCTION 05/18/2016 RACHAEL THEODORE MD Ot 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 05/18/2016 RACHAEL THEODORE MD Ot 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 05/18/2016 RACHAEL THEODORE MD Ot 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 05/18/2016 RACHAEL THEODORE MD Ot Z79.8 4 SENIOR LIVING (CURRENT) USE OF ORAL HYPOGLYC 05/23/2016 RACHAEL THEODORE MD Ot 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 05/23/2016 RACHAEL THEODORE MD Ot E78.5 HYPERLIPIDEMIA, UNSPECIFIED 05/23/2016 RACHAEL THEODORE MD Ot 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 05/23/2016 RACHAEL THEODORE MD Ot I10 ESSENTIAL (PRIMARY) HYPERTENSION 05/23/2016 RACHAEL THEODORE MD E Ot I25.1 0 ATHSCL HEART DISEASE OF [place] CORONARY 05/23/2016 RACHAEL THEODORE MD E Ot [...] EWELINA NUÑEZ, RACHAEL He Ot Z79.8 4 REFERRAL COORDINATOR (CURRENT) USE OF ORAL HYPOGLYC 07/21/2016 BLANTON-AD [...] MD, Ot I25.10 ATHSCL HEART DISEASE OF [place] CORONARY 11/22/2017 MANJU DASILVA MD, Ot 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 11/22/2017 MANJU DASILVA MD Ot N39 .0 URINARY TRACT INFECTION, SITE NOT SPECIF 11/22/2017 MANJU DASILVA MD, Ot R31 .0 GROSS HEMATURIA 11/22/2017 MANJU DASILVA MD, Ot R33 .9 RETENTION OF URINE, UNSPECIFIED 11/22/2017 MANJU DASILVA MD, Ot S37.30XA UNSPECIFIED INJURY OF URETHRA, INITIAL E 11/22/2017 MAJNU DASILVA MD, Ot Z86.73 PRSNL HX OF [...] Ot I25.1 0 ATHSCL HEART DISEASE OF [place] CORONARY 05/22/2018 KADE DE LEÓN MD Ot I25.2 OLD MYOCARDIAL INFARCTION 05/22/2018 KADE DE LEÓN MD Ot 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 05/22/2018 KADE DE LEÓN MD Ot J18.9 PNEUMONIA, UNSPECIFIED ORGANISM 05/22/2018 KADE DE LEÓN MD Ot N42.9 DISORDER OF PROSTATE, UNSPECIFIED 05/22/2018 KADE DE LEÓN MD Ot R09.0 2 HYPOXEMIA 05/22/2018 KADE DE LEÓN MD Ot Z79.8 4 SENIOR LIVING (CURRENT) USE OF ORAL HYPOGLYC 05/22/2018 KADE [...] Ot I25.1 0 ATHSCL HEART DISEASE OF [place] CORONARY 05/22/2018 KADE DE LEÓN MD Ot I25.2 OLD MYOCARDIAL INFARCTION 05/22/2018 KADE DE LEÓN MD Ot 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 05/22/2018 KADE DE LEÓN MD Ot J18.9 PNEUMONIA, UNSPECIFIED ORGANISM 05/22/2018 KADE DE LEÓN MD Ot N42.9 DISORDER OF PROSTATE, UNSPECIFIED 05/22/2018 KADE DE LEÓN MD Ot R09.0 2 HYPOXEMIA 05/22/2018 KADE DE LEÓN MD Ot Z79.8 4 SENIOR LIVING (CURRENT) USE OF ORAL HYPOGLYC 05/22/2018 KADE [...] Ot I25.1 0 ATHSCL HEART DISEASE OF [place] CORONARY 05/22/2018 KADE DE LEÓN MD Ot I25.2 OLD MYOCARDIAL INFARCTION 05/22/2018 KADE DE LEÓN MD Ot 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 05/22/2018 KADE DE LEÓN MD Ot J18.9 PNEUMONIA, UNSPECIFIED ORGANISM 05/22/2018 KADE DE LEÓN MD Ot N42.9 DISORDER OF PROSTATE, UNSPECIFIED 05/22/2018 KADE DE LEÓN MD Ot R09.0 2 HYPOXEMIA 05/22/2018 KADE DE LEÓN MD, Ot Z79.8 4 SENIOR LIVING (CURRENT) USE OF ORAL HYPOGLYC 05/22/2018 KADE [...] E78.0 0 PURE HYPERCHOLESTEROLEMIA, UNSPECIFIED 06/29/2018 THOMAS CISNEROS MD Ot F32.9 MAJOR DEPRESSIVE DISORDER, SINGLE EPISOD 06/29/2018 THOMAS CISNEROS MD Ot I10 ESSENTIAL (PRIMARY) HYPERTENSION 06/29/2018 THOMAS CISNEROS MD, Ot I25.1 0 ATHSCL HEART DISEASE OF [place] CORONARY 06/29/2018 THOMAS CISNEROS MD, Ot I25.2 OLD MYOCARDIAL INFARCTION 06/29/2018 THOMAS CISNEROS MD Ot K59.0 0 CONSTIPATION, UNSPECIFIED 06/29/2018 THOMAS CISNEROS MD Ot Z79.0 2 SENIOR LIVING (CURRENT) USE OF ANTITHROMBOTI 06/29/2018 THOMAS CISNEROS MD, Ot Z79.4 SENIOR LIVING (CURRENT) USE OF INSULIN 06/29/2018 THOMAS CISNEROS MD, Ot Z79.8 2 SENIOR LIVING (CURRENT) USE OF ASPIRIN 06/29/2018 THOMAS CISNEROS MD, Ot Z82.4 9 FAMILY HX OF ISCHEM HEART DIS AND OTH DI 06/29/2018 THOMAS CISNEROS MD, Ot Z86.7 3 PRSNL HX OF TIA (TIA), AND CEREB INFRC W 06/29/2018 THOMAS CISNEROS MD, Ot Z87.0 9 PERSONAL HISTORY OF OTHER DISEASES OF TH 06/29/2018 THOMAS CISNEROS MD, Ot Z88.8 ALLERGY STATUS TO [facility] DRUG/MEDS/BIOL SUB 06/29/2018 THOMAS CISNEROS MD, Ot [...] Ot I25.1 0 ATHSCL HEART DISEASE OF [place] CORONARY 07/03/2018 THOMAS CISNEROS MD, Ot I25.2 OLD MYOCARDIAL INFARCTION 07/03/2018 THOMAS CISNEROS MD, Ot K59.0 0 CONSTIPATION, UNSPECIFIED 07/03/2018 THOMAS CISNEROS MD, Ot Z79.0 2 REFERRAL COORDINATOR (CURRENT) USE OF ANTITHROMBOTI 07/03/2018 THOMAS CISNEROS MD, Ot Z79.4 SENIOR LIVING (CURRENT) USE OF INSULIN 07/03/2018 THOMAS CISNEROS MD, Ot Z79.8 2 REFERRAL COORDINATOR (CURRENT) USE OF ASPIRIN 07/03/2018 THOMAS CISNEROS MD, Ot Z82.4 9 FAMILY HX OF ISCHEM HEART DIS AND OTH DI 07/03/2018 THOMAS CISNEROS MD, Ot Z86.7 3 PRSNL HX OF TIA (TIA), AND CEREB INFRC W 07/03/2018 THOMAS CISNEROS MD, Ot Z87.0 9 PERSONAL HISTORY OF OTHER DISEASES OF TH 07/03/2018 THOMAS CISNEROS MD, Ot Z88.8 ALLERGY STATUS TO [facility] DRUG/MEDS/BIOL SUB 07/03/2018 THOMAS CISNEROS MD, Ot [...] Ot I25. 10 ATHSCL HEART DISEASE OF [place] CORONARY 07/10/2018 JEREMIAS BERKOWITZ MD, Ot I25. 2 OLD MYOCARDIAL INFARCTION 07/10/2018 JEREMIAS BERKOWITZ MD, Ot L89.152 PRESSURE ULCER OF SACRAL REGION, STAGE 2 07/10/2018 JEREMIAS BERKOWITZ MD Ot R20. 2 PARESTHESIA OF SKIN 07/10/2018 JEREMIAS BERKOWITZ MD Ot R53. 1 WEAKNESS 07/10/2018 JEREMIAS BERKOWITZ MD Ot Z79. 02 REFERRAL COORDINATOR (CURRENT) USE OF ANTITHROMBOTI 07/10/2018 JEREMIAS BERKOWITZ MD Ot Z79. 4 REFERRAL COORDINATOR (CURRENT) USE OF INSULIN 07/10/2018 JEREMIAS BERKOWITZ MD, Ot Z79. 82 SENIOR LIVING (CURRENT) USE OF ASPIRIN 07/10/2018 JEREMIAS BERKOWITZ [...] Ot I25. 10 ATHSCL HEART DISEASE OF [place] CORONARY 07/13/2018 JEREMIAS BERKOWITZ MD Ot I25. 2 OLD MYOCARDIAL INFARCTION 07/13/2018 JEREMIAS BERKOWITZ MD Ot L89.152 PRESSURE ULCER OF [place] REGION, STAGE 2 07/13/2018 JEREMIAS BERKOWITZ MD Ot R20. 2 PARESTHESIA OF SKIN 07/13/2018 JEREMIAS BERKOWITZ MD Ot R53. 1 WEAKNESS 07/13/2018 JEREMIAS BERKOWITZ MD, Ot Z79. 02 SENIOR LIVING (CURRENT) USE OF ANTITHROMBOTI 07/13/2018 JEREMIAS BERKOWITZ MD, Ot Z79. 4 SENIOR LIVING (CURRENT) USE OF INSULIN 07/13/2018 JEREMIAS BERKOWITZ MD, Ot Z79. 82 SENIOR LIVING (CURRENT) USE OF ASPIRIN 07/13/2018 JEREMIAS BERKOWITZ MD, Ot Z82. 49 FAMILY HX OF ISCHEM HEART DIS AND OTH DI 07/13/2018 JEREMIAS BERKOWITZ MD, Ot Z86. 73 PRSNL HX OF TIA (TIA), AND CEREB INFRC W 07/13/2018 JEREMIAS BERKOWITZ MD, Ot Z88. 8 ALLERGY STATUS TO [facility] DRUG/MEDS/BIOL SUB 07/13/2018 JEREMIAS BERKOWITZ MD, Ot [...] AMANDA Ot I25.10 ATHSCL HEART DISEASE OF [place] CORONARY 08/22/2018 HIPOLITO AMANDA Ot I25.2 OLD MYOCARDIAL INFARCTION 08/22/2018 HIPOLITO AMANDA Ot J42 UNSPECIFIED CHRONIC BRONCHITIS 08/22/2018 HIPOLITO AMANDA Ot M79.605 PAIN IN LEFT LEG 08/22/2018 HIPOLITO AMANDA Ot R22.43 LOCALIZED SWELLING, MASS AND LUMP, LOWER 08/22/2018 VASILIY HIPOLITO INTERNET SALES ASSOCIATE Ot Z79.02 REFERRAL COORDINATOR (CURRENT) USE OF ANTITHROMBOTI 08/22/2018 VASILIY, [employer]ITO [employer] SALES ASSOCIATE Ot Z79.82 SENIOR LIVING (CURRENT) USE OF ASPIRIN 08/22/2018 VASILIY, [employer]ITO INTER[employer] SALES ASSOCIATE Ot Z79.84 REFERRAL COORDINATOR (CURRENT) USE OF ORAL HYPOGLYC 08/22/2018 VASILIY, HIPOLITO INTERNET SALES ASSOCIATE Ot Z82.49 FAMILY HX OF ISCHEM HEART DIS AND OTH DI 08/22/2018 VASILIY, HIPOLITO INTERNET SALES ASSOCIATE Ot Z86.73 PRSNL HX OF TIA (TIA), AND CEREB INFRC W 08/22/2018 VASILIY, HIPOLITO INTERNET SALES ASSOCIATE Ot Z88.8 ALLERGY STATUS TO [facility] DRUG/MEDS/BIOL SUB 08/22/2018 VASILIY, [employer]ITO INTER[employer] SALES ASSOCIATE Ot Z91.041 RADIOGRAPHIC DYE ALLERGY STATUS 08/22/2018 VASILIY, [employer]ITO INTER[employer] SALES ASSOCIATE Ot Z95.5 PRESENCE OF CORONARY ANGIOPLASTY IMPLANT 08/28/2018 VASILIYHIPOLITO He INTERNET SALES ASSOCIATE Ot 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 MELLITUS WITH DIABETIC N 08/28/2018 VASILIY, HIPOLITO INTER[employer] SALES ASSOCIATE Ot E78.00 PURE HYPERCHOLESTEROLEMIA, UNSPECIFIED 08/28/2018 VASILIY, [employer]ITO INTER[employer] SALES ASSOCIATE Ot F32.9 MAJOR DEPRESSIVE DISORDER, SINGLE EPISOD 08/28/2018 VASILIY, HIPOLITO INTER[employer] SALES ASSOCIATE Ot I10 ESSENTIAL (PRIMARY) HYPERTENSION 08/28/2018 VASILIY, HIPOLITO INTERNET SALES ASSOCIATE Ot I25.10 ATHSCL HEART DISEASE OF [place] CORONARY 08/28/2018 VASILIY, HIP[employer]ITO INTER[employer] SALES ASSOCIATE Ot I25.2 OLD MYOCARDIAL INFARCTION 08/28/2018 VASILIY, HIPOLITO INTERNET SALES ASSOCIATE Ot J42 UNSPECIFIED CHRONIC BRONCHITIS 08/28/2018 VASILIY, HIPOLITO INTER[employer] SALES ASSOCIATE Ot M79.605 PAIN IN LEFT LEG 08/28/2018 VASILIY, HIPOLITO INTERNET SALES ASSOCIATE Ot R22.43 LOCALIZED SWELLING, MASS AND LUMP, LOWER 08/28/2018 VASILIY, HIPOLITO INTERNET SALES ASSOCIATE Ot Z79.02 REFERRAL COORDINATOR (CURRENT) USE OF ANTITHROMBOTI 08/28/2018 VASILIY, HIPOLITO INTER[employer] SALES ASSOCIATE Ot Z79.82 REFERRAL COORDINATOR (CURRENT) USE OF ASPIRIN 08/28/2018 VASILIY, HIPOLITO INTER[employer] SALES ASSOCIATE Ot Z79.84 REFERRAL COORDINATOR (CURRENT) USE OF ORAL HYPOGLYC 08/28/2018 VASILIY, HIPOLITO INTERNET SALES ASSOCIATE Ot Z82.49 FAMILY HX OF ISCHEM HEART DIS AND OTH DI 08/28/2018 VASILIY [employer]O INTER[employer] SALES ASSOCIATE Ot Z86.73 PRSNL HX OF TIA (TIA), AND CEREB INFRC W 08/28/2018 VASILIY, HIPOLITO INTERNET SALES ASSOCIATE Ot Z88.8 ALLERGY STATUS TO [facility]TH DRUG/MEDS/BIOL SUB 08/28/2018 VASILIY, HIP[employer]ITO INTER[employer] SALES ASSOCIATE Ot Z91.041 RADIOGRAPHIC DYE ALLERGY STATUS 08/28/2018 VASILIY, HIPOLITO INTERNET SALES ASSOCIATE Ot Z95.5 PRESENCE OF CORONARY ANGIOPLASTY IMPLANT 08/30/2018 VASILIY, HIPOLITO INTERNET SALES ASSOCIATE Ot 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 MELLITUS WITH DIABETIC N 08/30/2018 VASILIY, HIPOLITO INTERNET SALES ASSOCIATE Ot E78.00 PURE HYPERCHOLESTEROLEMIA, UNSPECIFIED 08/30/2018 VASILIY, HIPOLITO INTERNET SALES ASSOCIATE Ot F32.9 MAJOR DEPRESSIVE DISORDER, SINGLE EPISOD 08/30/2018 VASILIY, HIPOLITO INTERNET SALES ASSOCIATE Ot I10 ESSENTIAL (PRIMARY) HYPERTENSION 08/30/2018 VASILIY, HIPOLITO INTERNET SALES ASSOCIATE Ot I25.10 ATHSCL HEART DISEASE OF [place] CORONARY 08/30/2018 VASILIY, HIPOLITO INTERNET SALES ASSOCIATE Ot I25.2 OLD MYOCARDIAL INFARCTION 08/30/2018 VASILIY, HIPOLITO INTERNET SALES ASSOCIATE Ot J42 UNSPECIFIED CHRONIC BRONCHITIS 08/30/2018 VASILIY, HIPOLITO INTERNET SALES ASSOCIATE Ot M79.605 PAIN IN LEFT LEG 08/30/2018 VASILIY, HIPOLITO INTERNET SALES ASSOCIATE Ot R22.43 LOCALIZED SWELLING, MASS AND LUMP, LOWER 08/30/2018 VASILIY, HIPOLITO INTERNET SALES ASSOCIATE Ot Z79.02 SENIOR LIVING (CURRENT) USE OF ANTITHROMBOTI 08/30/2018 VASILIY, HIPOLITO INTERNET SALES ASSOCIATE Ot Z79.82 REFERRAL COORDINATOR (CURRENT) USE OF ASPIRIN 08/30/2018 VASILIY, HIPOLITO INTERNET SALES ASSOCIATE Ot Z79.84 REFERRAL COORDINATOR (CURRENT) USE OF ORAL HYPOGLYC 08/30/2018 VASILIY, HIPOLITO INTERNET SALES ASSOCIATE Ot Z82.49 FAMILY HX OF ISCHEM HEART DIS AND OTH DI 08/30/2018 VASILIY, HIPOLITO INTERNET SALES ASSOCIATE Ot Z86.73 PRSNL HX OF TIA (TIA), AND CEREB INFRC W 08/30/2018 VASILIY, HIPOLITO INTERNET SALES ASSOCIATE Ot Z88.8 ALLERGY STATUS TO [facility]TH DRUG/MEDS/BIOL SUB 08/30/2018 VASILIY, HIPOLITO INTERNET SALES ASSOCIATE Ot Z91.041 RADIOGRAPHIC DYE ALLERGY STATUS 08/30/2018 VASILIY, HIPOLITO INTERNET SALES ASSOCIATE Ot Z95.5 PRESENCE OF CORONARY ANGIOPLASTY IMPLANT [...] Ot I25. 10 ATHSCL HEART DISEASE OF [place] CORONARY 04/05/2019 KEY BERMUDEZ MD, Ot I25. 2 OLD MYOCARDIAL INFARCTION 04/05/2019 KEY BERMUDEZ MD, Ot I50. 9 HEART FAILURE, UNSPECIFIED 04/05/2019 KEY BERMUDEZ MD, Ot S22.31XA FRACTURE OF ONE RIB, RIGHT SIDE, INIT FO 04/05/2019 KEY BERMUDEZ MD, Ot W18.30XA FALL ON SAME LEVEL, UNSPECIFIED, INITIAL 04/05/2019 KEY BERMUDEZ MD, Ot Y92.[address] IN CARE HOME PLACE 04/05/2019 KEY BERMUDEZ MD, Ot Z79. 02 SENIOR LIVING (CURRENT) USE OF ANTITHROMBOTI 04/05/2019 KEY BERMUDEZ MD, Ot Z79. 82 REFERRAL COORDINATOR (CURRENT) USE OF ASPIRIN 04/05/2019 KEY BERMUDEZ MD, Ot Z79. 84 REFERRAL COORDINATOR (CURRENT) USE OF ORAL HYPOGLYC 04/05/2019 KEY [...] Ot I25. 10 ATHSCL HEART DISEASE OF [place] CORONARY 04/09/2019 KEY BERMUDEZ MD, Ot I25. 2 OLD MYOCARDIAL INFARCTION 04/09/2019 KEY BERMUDEZ MD, Ot I50. 9 HEART FAILURE, UNSPECIFIED 04/09/2019 KEY BERMUDEZ MD, Ot S22.31XA FRACTURE OF ONE RIB, RIGHT SIDE, INIT FO 04/09/2019 KEY BERMUDEZ MD, Ot W18.30XA FALL ON SAME LEVEL, UNSPECIFIED, INITIAL 04/09/2019 KEY BERMUDEZ MD, Ot Y92.[address] IN CARE HOME PLACE 04/09/2019 KEY BERMUDEZ MD, Ot Z79. 02 SENIOR LIVING (CURRENT) USE OF ANTITHROMBOTI 04/09/2019 KEY BERMUDEZ MD, Ot Z79. 82 SENIOR LIVING (CURRENT) USE OF ASPIRIN 04/09/2019 KEY BERMUDEZ MD, Ot Z79. 84 SENIOR LIVING (CURRENT) USE OF ORAL HYPOGLYC 04/09/2019 KEY BERMUDEZ MD, Ot Z86. 73 PRSNL HX OF TIA (TIA), AND CEREB INFRC W 04/09/2019 KEY BERMUDEZ MD, Ot Z88. 8 ALLERGY STATUS TO OT DRUG/MEDS/BIOL SUB 04/09/2019 KEY BERMUDEZ MD, Ot Z95. 5 PRESENCE OF CORONARY ANGIOPLASTY IMPLANT Procedures Code Description Performed By Per anabella On [id number] IN SERT OF MONITOR DEV INTO CHEST [...] by glucometer (mas s/volume) 177 mg/dL 70-110 [id number] gene mutation analysis - 7 09:57 [id number] gene mutation analysis Intermediate [facility] Capillary blood glucose measurement by g lucometer [...] 7-25 CREATININE 0.70 mg/dL 0.70-1.11 eGFR NON-AFR. [place] 85 mL/min/1.73m2 > OR = 60 [...] Status Pt. Type Provider Facility Loc./Unit Complaint [id number] 03/29/2019 14:15:00 03/29/2019 23:59: 59 CLS Outpatient SELFJOSÉ MIGUEL [facility] [id number] 03/07/2019 17:45:00 Document Registration [id number] 01/24/2019 10:45:00 Document Registration [id number] 09/06/2018 17:30:00 Document Registration [id number] 05/07/2018 09:00:00 Document Registration [id number] 06/11/2019 09:33:00 10:59:00 DIS Emergency MOSES TRAN MD [facility] ER FS RT SIDE PAIN [id number] 04/05/2019 06:14:00 09:15:00 DIS Emergency KEY BERMUDEZ MD [facility] ER FS FALL [id number] 10/08/2018 17:33:00 23:59:59 CLS Outpatient SELF JOSÉ MIGUEL NUÑEZ [facility] LAB FS N39.15 [id number] 09/05/2018 11:45:00 23:59:59 CLS Preadmit EMMA ANDREWS [facility] CARD CAD [id number] 08/22/2018 19:36:00 21:50:00 DIS Emergency HIPOLITO AMANDA [facility] ER LEG SWELLING [id number] 07/10/2018 17:34:00 21:15:00 DIS Emergency SHO NUÑEZ, JEREMIAS Dodd [facility] ER FS STROKE SYMPTOMS [id number] 07/07/2018 14:39:00 23:59:59 CLS Outpatient MICHELLE NUÑEZ, TASNEEM Gaspar [facility] LAB FS [id number] 06/29/2018 09:26:00 14:20:00 DIS Emergency BLAYNE NUÑEZ, THOMAS He [facility] ER FS BOWEL CONSTIPATION; HOMERO SEA [id number] 05/19/2018 23:15:00 13:56:00 DIS Inpatient GENET NUÑEZ, KADE F[place] [facility] 4TH PNEUMONIA; HYPOXIA; DIABETES;APHASIA DEMENTIA [id number] 11/21/2017 23:47:00 018 15:16:00 DIS Inpatient MANJU DASILVA MD [facility] 4TH UROSEPSIS,HEMATURIA ACU TE [id number] 07/20/2016 07:33:00 017 23:59:59 CLS Outpatient JOVANI ANDREWS [facility] CARD I63.8,I65.2 3,E78.2 [id number] 05/04/2016 10:32:00 017 11:15:00 DIS Inpatient RACHAEL THEODORE MD [facility] IRF CVA [id number] 05/02/2016 17:37:00 017 10:32:00 DIS Inpatient MANJU DASILVA 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
[2019-06-12] MEDS ORDERED: NS IV 1000 ML 1,000 ML IV SCH (13:30)
[2019-06-12] MEDS ORDERED: fentaNYL INJECTION 100 MCG/2 ML AMP IVP ONE (13:30)
--- NOTE | 2019-06-12 13:32 | ED Abdominal Pain ---
General Chief Complaint: Abdominal/GI Problems Stated Complaint: ABD PAIN Source of Information: [facility] Records History of Present Illness Date Seen by Provider: Jun 12, 2019 Time Seen by Provider: 13:28 Initial Comments Presents w abdominal pain. 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 Points to abdomen when asked about pain. Nods when asked if he wanted something for pain. Sent from [place]. Fell recently and sent to ER w rib pain. Allergies and Home Medications Allergies Coded Allergies: dapagliflozin (Verified Allergy, Unknown, 11/22/17) donepezil (Verified Allergy, Unknown, 11/22/17) iodine (Verified Allergy, Unknown, 11/22/17) Home Medications Acetaminophen 500 Mg Tablet, 500 MG PO Q6H Prescribed by: KEY BERMUDEZ on 04/05/19 0856 Aspirin 81 Mg Tablet.dr, 81 MG PO HS, (Reported) Benzonatate 100 Mg Capsule, 100 MG PO TID Prescribed by: MOSES TRAN on 06/11/19 1048 Carboxymethylcellulose Sodium 15 Ml Drops, 1 DROP OU TID, (Reported) Cefdinir 300 Mg Capsule, 300 MG PO BID Prescribed by: MARYAM MANZO on 05/22/18 1051 Citalopram Hydrobromide 40 Mg Tablet, 20 MG PO HS, (Reported) TAKES 1/2 (40MG) TABLET Clopidogrel Bisulfate 75 Mg Tablet, 75 MG PO DAILY, (Reported) Clotrimazole 15 Gm Cream..g., 15 GM TP BID Apply thin layer to rash on foot twice a day for 10 days to treat fungal rash Prescribed by: THOMAS CISNEROS on 06/29/18 1406 Cyanocobalamin (Vitamin B-12) 2,500 Mcg Tablet, 1,250 MCG PO DAILY, (Reported) TAKES 1/2 OF A (2,500 MCG) TABLET Donepezil HCl 10 Mg Tablet, 10 MG PO HS, (Reported) Doxazosin Mesylate 8 Mg Tablet, 8 MG PO HS, (Reported) Finasteride 5 Mg Tablet, 5 MG PO DAILY, (Reported) Fluoxetine HCl 10 Mg Capsule, 10 MG PO HS Prescribed by: JEREMIAS BERKOWITZ on 07/10/182042 Fluoxetine HCl 20 Mg Capsule, 20 MG PO HS Prescribed by: JEREMIAS BERKOWITZ on 07/10/182042 Furosemide 40 Mg Tablet, 40 MG PO DAILY Prescribed by: HIPOLITO AMANDA on 08/22/18 2131 Glyburide 5 Mg Tablet, 5 MG PO 0700,1630, (Reported) Guaifenesin 600 Mg Tab.er.12h, 600 MG PO Q12H PRN for URI, (Reported) Guaifenesin/Codeine Phosphate 118 Ml Liquid, 10 ML PO Q6H PRN for COUGH, (Reported) Hydrocodone Bit/Acetaminophen 1 Each Tablet, 1 TAB PO Q4H PRN for PAIN-MODERATE, (Reported) Loratadine 10 Mg Tablet, 10 MG PO DAILY, (Reported) Metformin HCl 500 Mg Tablet, 500 MG PO DAILY, (Reported) [place] 3 Polyunsat Fatty Acids 1,000 Mg Cap, 2,000 MG PO BID, (Reported) Phenol 177 Ml [place], 1 SPRAY MM Q2H PRN for SORE THROAT, (Reported) Phenytoin Sodium Extended 100 Mg Capsule, 200 MG PO BID, (Reported) TAKES 2 (100 MG) CAPSULES Polyethylene Glycol 3350 17 Gm Powd.pack, 17 GM PO DAILY, (Reported) Polyethylene Glycol 3350 17 Gm Powd.pack, 17 GM PO DAILY PRN Prescribed by: ALEJO MICHAEL on 06/12/19 1416 Silver Sulfadiazine 25 Gm Cream..g., TOP DAILY, (Reported) RIGHT ANKLE Simvastatin 40 Mg Tablet, 20 MG PO HS, (Reported) TAKES 1/2 OF A (40 MG) TABLET Tramadol HCl 50 Mg Tablet, 50 MG PO Q6H PRN for PAIN-MODERATE, (Reported) Tramadol HCl 50 Mg Tablet, 25 MG PO Q6H PRN for PAIN-SEVERE (8-10) Prescribed by: KEY BERMUDEZ on 04/05/19 0856 Trazodone HCl 50 Mg Tablet, 150 MG PO HS, (Reported) TAKES 3 (50MG) TABLETS Patient Home Medication List Home Medication List Reviewed: Yes Review of Systems Review of Systems Constitutional: no symptoms reported Respiratory: Denies Cough, Denies SOA at Rest Gastrointestinal: Abdomen Distended, Abdominal Pain; Denies Diarrhea, Denies Vomiting Past [id number] Hx Past Med/Social Hx: Reviewed Nursing Past Med/Soc Hx Patient Social History Alcohol Use: Denies Use Alcohol Beverage of Choice: [place], Wine Recreational Drug Use: No Smoking Status: Never a Smoker Type Used: Cigarettes 2nd Hand Smoke Exposure: No Recent Foreign Travel: No Contact w/Someone Who Travel: No Recent Hopitalizations: No Physical Abuse: No Sexual Abuse: No Mistreated: No Fear: No Immunizations Up To Date PED Vaccines UTD: Yes Date of Pneumonia Vaccine: Dec 15, 2015 Date of Influenza Vaccine: Nov 20, 2017 Seasonal Allergies Seasonal Allergies: No Past Medical History Surgeries: Yes (KNEE SCOPE; CARDIAC CATHS WITH STENT; LOOP RECORDER) Cardiac, Coronary Stent, Orthopedic Respiratory: No Chronic Bronchitis Currently Using CPAP: No Currently Using BIPAP: No Cardiac: Yes (CARDIAC CATH WITH STENT; LOOP RECORDER IN PLACE) Coronary Artery Disease, Heart Attack, High Cholesterol, Hypertension Neurological: Yes (CVA WITH APHASIA; TRIGEMINAL NEURALGIA) Neuropathy, Stroke, TIA Sexually Transmitted Disease: No HIV/AIDS: No Genitourinary: Yes Prostate Problems Gastrointestinal: No Musculoskeletal: Yes (KNEE SCOPE) Endocrine: Yes Diabetes, Non-Insulin dep HEENT: Yes Cataract Loss of Vision: Denies Hearing Impairment: Denies Cancer: No Psychosocial: Yes Depression Integumentary: No Blood Disorders: No Adverse Reaction/Blood Tranf: No Family Medical History Diabetes mellitus 19 MOTHER FH: congestive heart failure 19 MOTHER Headache disorder Hypertension 19 FATHER Myocardial infarction 19 FATHER No Pertinent Family Hx Physical Exam Vital Signs Vital Signs - First Documented 06/12/19 13:10 Temp 36.5 Pulse 67 Resp 22 B/P (MAP) 127/63 (84) Pulse Ox 94 O2 Delivery Room Air Capillary Refill : Height/Weight/BMI Height: 5'8.00" Weight: 250lbs. 0oz. 113.051962pn; 33.00 BMI Method:Estimated General Appearance: WD/WN, no apparent distress Respiratory: chest non-tender, lungs clear Cardiovascular: regular rate, rhythm, no edema, no JVD Gastrointestinal: abnormal bowel sounds (diminished), distended, guarding, tenderness (generalized) Extremities: non-tender, normal inspection, no pedal edema, no calf tenderness Back: normal inspection, no CVA tenderness, no vertebral tenderness Neurologic/Psychiatric: alert, normal mood/affect Skin: normal color, warm/dry Progress/Results/Core Measures Results/Orders Lab Results Laboratory Tests Test 06/12/19 13:20 Range/Units White Blood Count 6.6 4.3-11.0 10^3/uL Red Blood Count 3.35 L 4.35-5.85 10^6/uL Hemoglobin 12.7 L 13.3-17.7 G/DL Hematocrit 35 L 40-54 % Mean Corpuscular Volume 105 H 80-99 FL Mean Corpuscular Hemoglobin 38 H 25-34 PG Mean Corpuscular Hemoglobin Concent 36 32-36 G/DL Red Cell Distribution Width 12.8 10.0-14.5 % Platelet Count 218 130-400 10^3/uL Mean Platelet Volume 9.3 7.4-10.4 FL Neutrophils (%) (Auto) 60 42-75 % Lymphocytes (%) (Auto) 26 12-44 % Monocytes (%) (Auto) 10 0-12 % Eosinophils (%) (Auto) 3 0-10 % Basophils (%) (Auto) 1 0-10 % Neutrophils # (Auto) 3.9 1.8-7.8 X 10^3 Lymphocytes # (Auto) 1.7 1.0-4.0 X 10^3 Monocytes # (Auto) 0.6 0.0-1.0 X 10^3 Eosinophils # (Auto) 0.2 0.0-0.3 10^3/uL Basophils # (Auto) 0.0 0.0-0.1 10^3/uL Sodium Level 137 135-145 MMOL/L Potassium Level 4.2 3.6-5.0 MMOL/L Chloride Level 97 L 98-107 MMOL/L Carbon Dioxide Level 26 21-32 MMOL/L Anion Gap 14 5-14 MMOL/L Blood Urea Nitrogen 12 7-18 MG/DL Creatinine 0.84 0.60-1.30 MG/DL Estimat Glomerular Filtration Rate > 60 BUN/Creatinine Ratio 14 Glucose Level 186 H 70-105 MG/DL Calcium Level 8.6 8.5-10.1 MG/DL Corrected Calcium 8.5 8.5-10.1 MG/DL Total Bilirubin 0.4 0.1-1.0 MG/DL Aspartate Amino Transf (AST/SGOT) 19 5-34 U/L Alanine Aminotransferase (ALT/SGPT) 17 0-55 U/L Alkaline Phosphatase 76 40-136 U/L Total Protein 7.0 6.4-8.2 GM/DL Albumin 4.1 3.2-4.5 GM/DL Lipase 30 8-78 U/L My Orders Orders - ROVENSTINE,ALEJO L DO Ed Iv/Invasive Line Start (06/12/19 13:25) Cbc With Automated Diff (06/12/19 13:25) Comprehensive Metabolic Panel (06/12/19 13:25) Lipase (06/12/19 13:25) Lactic Acid Analyzer (06/12/19 13:25) Urinalysis (06/12/19 13:25) Acute Abd Series (06/12/19 13:25) Ns Iv 1000 Ml (Sodium Chloride 0.9%) (06/12/19 13:30) Fentanyl Injection (Sublimaze Injection (06/12/19 13:30) Medications Given in ED Current Medications Medications Dose Ordered Sig/Taqueria Route Start Time Stop Time Status Last Admin Dose Admin Fentanyl Citrate 50 mcg ONCE ONCE IVP 06/12/19 13:30 06/12/19 13:31 DC 06/12/19 13:34 50 MCG Vital Signs/I&O 06/12/19 06/12/19 13:10 14:25 Temp 36.5 36.5 Pulse 67 65 Resp 22 18 B/P (MAP) 127/63 (84) 117/48 Pulse Ox 94 97 O2 Delivery Room Air Room Air Diagnostic Imaging Diagonstic Imaging: Xray Plain Films/CT/US/NM/MRI: abdomen Comments FINDINGS: A cardiac monitoring device overlies the lower left chest. The lungs appear to be clear. No definite free air is identified. The bowel gas pattern appears nonobstructed. There is a moderate stool load in the transverse and descending colon, suggestive of constipation. No pathologic calcifications are seen. IMPRESSION: Moderate stool, suggestive of constipation. No other abnormality is detected. Dictated on workstation # [id number] Dict: 06/12/19 1358 Trans: 06/12/19 1400 [id number] Interpreted by: EZEQUIEL HUNT MD Electronically signed by: Departure Impression Primary Impression: Abdominal pain Qualified Codes: R10.9 - Unspecified abdominal pain Additional Impression: Constipation Qualified Codes: K59.00 - Constipation, unspecified Disposition: HOME, SELF-CARE (return to [place]) Condition: Stable Departure-Patient Inst. Decision time for Depature: 14:15 Referrals: JOSÉ MIGUEL RIOS MD (PCP/Family) Primary Care Physician Patient Instructions: Constipation, Adult (DC) Add. Discharge Instructions: Advised to have an enema today and to notify Dr Rios in 2-3 days if not improving. All discharge instructions reviewed with patient and/or family. Voiced understanding. Scripts Polyethylene Glycol 3350 (Miralax) 17 Gm Powd.pack 17 GM PO DAILY PRN for Constipation for 7 Days, #7 EACH Prov: ALEJO MICHAEL DO 06/12/19 ALEJO MICHAEL DO Jun 12, 2019 13:32
[2019-06-12 13:47] LABS: HEMATOCRIT 35 % (40-54); HEMOGLOBIN 12.7 G/DL (13.3-17.7); MEAN CORPUSCULAR HEMOGLOBIN 38 PG (25-34); MEAN CORPUSCULAR HGB CONC 36 G/DL (32-36); MEAN CORPUSCULAR VOLUME 105 FL (80-99); MEAN PLATELET VOLUME 9.3 FL (7.4-10.4); NEUTROPHILS % (AUTO) 60 % (42-75); PLATELET COUNT 218 10^3/uL (130-400); RED CELL DISTRIBUTION WIDTH 12.8 % (10.0-14.5); WHITE BLOOD COUNT 6.6 10^3/uL (4.3-11.0)
[2019-06-12 13:48] LABS: BASOPHILS % (AUTO) 1 % (0-10); EOSINOPHILS % (AUTO) 3 % (0-10); LYMPHOCYTES % (AUTO) 26 % (12-44); MONOCYTES % (AUTO) 10 % (0-12)
[2019-06-12 13:49] LABS: EOSINOPHILS # (AUTO) 0.2 10^3/uL (0.0-0.3); LYMPHOCYTES # (AUTO) 1.7 X 10^3 (1.0-4.0); MONOCYTES # (AUTO) 0.6 X 10^3 (0.0-1.0); NEUTROPHILS # (AUTO) 3.9 X 10^3 (1.8-7.8)
--- NOTE | 2019-06-12 14:01 | Diagnostic Imaging Report ---
INDICATION: Abdominal pain on the right. TIME OF EXAM: 1:41 PM. FINDINGS: A cardiac monitoring device overlies the lower left chest. The lungs appear to be clear. No definite free air is identified. The bowel gas pattern appears nonobstructed. There is a moderate stool load in the transverse and descending colon, suggestive of constipation. No pathologic calcifications are seen. IMPRESSION: Moderate stool, suggestive of constipation. No other abnormality is detected. Dictated by: Dictated on workstation # [id number]
[2019-06-12 14:10] LABS: BUN/CREATININE RATIO 14; CARBON DIOXIDE 26 MMOL/L (21-32); CHLORIDE 97 MMOL/L (98-107); CREATININE SERUM 0.84 MG/DL (0.60-1.30); GFR ESTIMATED > 60; GLUCOSE 186 MG/DL (70-105); POTASSIUM 4.2 MMOL/L (3.6-5.0); SODIUM 137 MMOL/L (135-145)
[2019-06-12 14:11] LABS: ALANINE AMINOTRANSFERASE 17 U/L (0-55); ALBUMIN 4.1 GM/DL (3.2-4.5); ALKALINE PHOSPHATASE 76 U/L (40-136); BILIRUBIN,TOTAL 0.4 MG/DL (0.1-1.0); CALCIUM 8.6 MG/DL (8.5-10.1); LIPASE 30 U/L (8-78)
[2019-06-12] MEDS ORDERED: POLY17PO6 PO (14:16)
[2019-06-12 14:25] VITALS: BP 117/48
--- NOTE | 2019-06-12 14:42 | NUR ---
GAS MASK INSPECTOR from [facility] picked up patient at this time. Discharge instructions and summary packet were given to GAS MASK INSPECTOR. Care was transferred at this time.
== END 2019-06-12 14:42 ==
LOC: EDUNIT# 13:06 → ER FS 13:08
DX: K59.00 Constipation, unspecified (principal); I69.320 Aphasia following cerebral infarction; E11.40 Type 2 diabetes mellitus with diabetic neuropathy, unspecified; J42 Unspecified chronic bronchitis; I10 Essential (primary) hypertension; I25.10 Atherosclerotic heart disease of native coronary artery without angina pectoris; E78.00 Pure hypercholesterolemia, unspecified; I25.2 Old myocardial infarction; F32.9 Major depressive disorder, single episode, unspecified; Z79.82 Long term (current) use of aspirin; Z79.899 Other long term (current) drug therapy; Z79.84 Long term (current) use of oral hypoglycemic drugs
CPT/HCPCS: 36415; 74022; 80053; 83690; 85025

== ENCOUNTER 2020-01-16 12:21 | Emergency (ER) | payer MEDICARE ==
[~2020-01-16 12:21] MED LIST changes: +ASPI-1238 PO; -ASPI-983 PO; +CLOT15CR28 TP; -CLOT15CR5 TP
[2020-01-16 12:39] LABS: HEMOGLOBIN 12.8 G/DL (13.3-17.7); MEAN CORPUSCULAR HEMOGLOBIN 38 PG (25-34); WHITE BLOOD COUNT 8.1 10^3/uL (4.3-11.0)
[2020-01-16 12:40] LABS: BASOPHILS % (AUTO) 1 % (0-10); EOSINOPHILS % (AUTO) 3 % (0-10); HEMATOCRIT 35 % (40-54); LYMPHOCYTES % (AUTO) 38 % (12-44); MEAN CORPUSCULAR HGB CONC 36 G/DL (32-36); MEAN CORPUSCULAR VOLUME 105 FL (80-99); MONOCYTES % (AUTO) 9 % (0-12); NEUTROPHILS % (AUTO) 49 % (42-75); PLATELET COUNT 224 10^3/uL (130-400)
[2020-01-16 12:41] LABS: EOSINOPHILS # (AUTO) 0.2 10^3/uL (0.0-0.3); LYMPHOCYTES # (AUTO) 3.1 X 10^3 (1.0-4.0); MONOCYTES # (AUTO) 0.7 X 10^3 (0.0-1.0)
[2020-01-16 13:03] LABS: ALANINE AMINOTRANSFERASE 17 U/L (0-55); ALKALINE PHOSPHATASE 76 U/L (40-136); BILIRUBIN,TOTAL 0.4 MG/DL (0.1-1.0); BUN/CREATININE RATIO 15; CALCIUM 8.7 MG/DL (8.5-10.1); CARBON DIOXIDE 26 MMOL/L (21-32); CHLORIDE 98 MMOL/L (98-107); CREATININE SERUM 0.79 MG/DL (0.60-1.30); GFR ESTIMATED > 60; GLUCOSE 112 MG/DL (70-105); POTASSIUM 3.8 MMOL/L (3.6-5.0); SODIUM 138 MMOL/L (135-145)
[2020-01-16 13:04] LABS: ALBUMIN 4.1 GM/DL (3.2-4.5); TOTAL PROTEIN 6.9 GM/DL (6.4-8.2)
--- NOTE | 2020-01-16 13:10 | Diagnostic Imaging Report ---
EXAMINATION: Chest radiograph, portable AP view. DATE: 01/16/2020 12:55 PM INDICATION: 89-year-old male, chest pain. COMPARISON: CT chest April 05, 2019. Chest radiograph July 10, 2018. FINDINGS: Heart size and mediastinal contours are unremarkable. There is no identified pneumothorax. There is no large pleural effusion. There is no identified focal airspace consolidation. IMPRESSION: 1. No identified acute cardiopulmonary abnormality. Dictated by: Dictated on workstation # [id number]
--- NOTE | 2020-01-16 13:18 | ED General ---
General Chief Complaint: General Problems/Pain Stated Complaint: CHEST PAIN Nursing Triage Note: Patient presents to the ED via EMS from [facility]. EMS reports that [facility] staff reported patient c/o chest pain. EMS stated when they arrived on scene the patient denied any complaints. Upon arrival to the ED the patient denies any complaints. Patient is nonverbal following previous stroke but does deny c/o of chest pain by shaking his head no. Nursing Sepsis Screen: No Definite Risk Source of Information: EMS Notes Reviewed, [facility] Records Exam Limitations: Physical Impairments (non-verbal) History of Present Illness Date Seen by Provider: Jan 16, 2020 Time Seen by Provider: 12:15 Initial Comments Presents via EMS from [place] where staff stated he had c/o chest pain. Patient denies complaint to EMS or to ER staff including myself. Non-verbal post CVA. Able to communicate, yes and no to most questions. Allergies and Home Medications Allergies Coded Allergies: dapagliflozin (Verified Allergy, Unknown, 11/22/17) donepezil (Verified Allergy, Unknown, 11/22/17) iodine (Verified Allergy, Unknown, 11/22/17) Home Medications Acetaminophen 500 Mg Tablet, 500 MG PO Q6H Prescribed by: KEY BERMUDEZ on 04/05/19 0856 Aspirin 81 Mg Tablet.dr, 81 MG PO HS, (Reported) Benzonatate 100 Mg Capsule, 100 MG PO TID Prescribed by: MOSES TRAN on 06/11/19 1048 Carboxymethylcellulose Sodium 15 Ml Drops, 1 DROP OU TID, (Reported) Cefdinir 300 Mg Capsule, 300 MG PO BID Prescribed by: MARYAM MANZO on 05/22/18 1051 Citalopram Hydrobromide 40 Mg Tablet, 20 MG PO HS, (Reported) TAKES 1/2 (40MG) TABLET Clopidogrel Bisulfate 75 Mg Tablet, 75 MG PO DAILY, (Reported) Clotrimazole 15 Gm Cream..g., 15 GM TP BID Apply thin layer to rash on foot twice a day for 10 days to treat fungal rash Prescribed by: THOMAS CISNEROS on 06/29/18 1406 Cyanocobalamin (Vitamin B-12) 2,500 Mcg Tablet, 1,250 MCG PO DAILY, (Reported) TAKES 1/2 OF A (2,500 MCG) TABLET Donepezil HCl 10 Mg Tablet, 10 MG PO HS, (Reported) Doxazosin Mesylate 8 Mg Tablet, 8 MG PO HS, (Reported) Finasteride 5 Mg Tablet, 5 MG PO DAILY, (Reported) Fluoxetine HCl 10 Mg Capsule, 10 MG PO HS Prescribed by: JEREMIAS BERKOWITZ on 07/10/182042 Fluoxetine HCl 20 Mg Capsule, 20 MG PO HS Prescribed by: JEREMIAS BERKOWITZ on 07/10/182042 Furosemide 40 Mg Tablet, 40 MG PO DAILY Prescribed by: HIPOLITO AMANDA on 08/22/182130 Glyburide 5 Mg Tablet, 5 MG PO 0700,1630, (Reported) Guaifenesin 600 Mg Tab.er.12h, 600 MG PO Q12H PRN for URI, (Reported) Guaifenesin/Codeine Phosphate 118 Ml Liquid, 10 ML PO Q6H PRN for COUGH, (Reported) Hydrocodone Bit/Acetaminophen 1 Each Tablet, 1 TAB PO Q4H PRN for PAIN-MODERATE, (Reported) Loratadine 10 Mg Tablet, 10 MG PO DAILY, (Reported) Metformin HCl 500 Mg Tablet, 500 MG PO DAILY, (Reported) [place] 3 Polyunsat Fatty Acids 1,000 Mg Cap, 2,000 MG PO BID, (Reported) Phenol 177 Ml [place], 1 SPRAY MM Q2H PRN for SORE THROAT, (Reported) Phenytoin Sodium Extended 100 Mg Capsule, 200 MG PO BID, (Reported) TAKES 2 (100 MG) CAPSULES Polyethylene Glycol 3350 17 Gm Powd.pack, 17 GM PO DAILY, (Reported) Polyethylene Glycol 3350 17 Gm Powd.pack, 17 GM PO DAILY PRN Prescribed by: ALEJO MICHAEL on 06/12/19 1416 Silver Sulfadiazine 25 Gm Cream..g., TOP DAILY, (Reported) RIGHT ANKLE Simvastatin 40 Mg Tablet, 20 MG PO HS, (Reported) TAKES 1/2 OF A (40 MG) TABLET Tramadol HCl 50 Mg Tablet, 50 MG PO Q6H PRN for PAIN-MODERATE, (Reported) Tramadol HCl 50 Mg Tablet, 25 MG PO Q6H PRN for PAIN-SEVERE (8-10) Prescribed by: KEY BERMUDEZ on 04/05/19 0856 Trazodone HCl 50 Mg Tablet, 150 MG PO HS, (Reported) TAKES 3 (50MG) TABLETS Patient Home Medication List Home Medication List Reviewed: Yes Review of Systems Review of Systems Constitutional: No chills, No fever, No malaise, No weakness Respiratory: No cough, No short of breath Cardiovascular: No chest pain, No syncope Gastrointestinal: No abdominal pain, No diarrhea, No loss of appetite, No vomiting Past Vmsmpoz-Qpmtkc-Rxewue Hx Past Med/Social Hx: Reviewed Nursing Past Med/Soc Hx Patient Social History Alcohol Use: Denies Use Number of Drinks Today: Alcohol Beverage of Choice: [place], Wine Recreational Drug Use: No Smoking Status: Former Smoker Type Used: Cigarettes Former Smoker, Quit: Feb 13, 1979 2nd Hand Smoke Exposure: No Recent Foreign Travel: No Contact w/Someone Who Travel: No Recent Infectious Disease Expo: No Recent Hopitalizations: No Physical Abuse: No Sexual Abuse: No Mistreated: No Fear: No Immunizations Up To Date PED Vaccines UTD: Yes Date of Pneumonia Vaccine: Dec 15, 2015 Date of Influenza Vaccine: Nov 20, 2017 Seasonal Allergies Seasonal Allergies: No Past Medical History Surgeries: Yes (KNEE SCOPE; CARDIAC CATHS WITH STENT; LOOP RECORDER) Cardiac, Coronary Stent, Orthopedic Respiratory: No Chronic Bronchitis Currently Using CPAP: No Currently Using BIPAP: No Cardiac: Yes (CARDIAC CATH WITH STENT; LOOP RECORDER IN PLACE) Coronary Artery Disease, Heart Attack, High Cholesterol, Hypertension Neurological: Yes (CVA WITH APHASIA; TRIGEMINAL NEURALGIA) Neuropathy, Stroke, TIA Sexually Transmitted Disease: No HIV/AIDS: No Genitourinary: Yes Prostate Problems Gastrointestinal: No Musculoskeletal: Yes (KNEE SCOPE) Endocrine: Yes Diabetes, Non-Insulin dep HEENT: Yes Cataract Loss of Vision: Denies Hearing Impairment: Denies Cancer: No Psychosocial: Yes Depression Integumentary: No Blood Disorders: No Adverse Reaction/Blood Tranf: No Family Medical History Diabetes mellitus 19 MOTHER FH: congestive heart failure 19 MOTHER Headache disorder Hypertension 19 FATHER Myocardial infarction 19 FATHER No Pertinent Family Hx Physical Exam Vital Signs Vital Signs - First Documented 01/16/20 12:25 Temp 36.3 Pulse 62 Resp 15 B/P (MAP) 135/55 (81) Pulse Ox 97 O2 Delivery Room Air Capillary Refill : Less Than 3 Seconds Height, Weight, BMI Height: 5'8.00" Weight: 250lbs. 0oz. 113.427931rw; 28.00 BMI Method:Estimated General Appearance: No Apparent Distress, WD/WN HEENT: PERRL/EOMI, Normal ENT Inspection Neck: Normal Inspection, Non Tender, Supple Respiratory: Chest Non Tender, Lungs Clear, Normal Breath Sounds, No Accessory Muscle Use, No Respiratory Distress Cardiovascular: Regular Rate, Rhythm, No JVD, Normal Peripheral Pulses, Other (LE edema) Gastrointestinal: Normal Bowel Sounds, Non Tender, Soft Back: Normal Inspection, No CVA Tenderness Extremity: Normal Capillary Refill, Normal Inspection, Non Tender Neurologic/Psychiatric: Alert, No Motor/Sensory Deficits Skin: Normal Color, Warm/Dry Focused Exam Lactate Level 01/16/20 12:44: Lactic Acid Level 3.06*H Lactic Acid Level Laboratory Tests Test 01/16/20 12:44 Lactic Acid Level 3.06 MMOL/L (0.50-2.00) *H Progress/Results/Core Measures Suspected Sepsis Recent Fever Within 48 Hours: No Infection Criteria Present: None New/Unexplained Altered Menta: No Sepsis Screen: No Definite Risk SIRS Temperature: Pulse: 62 Respiratory Rate: 15 Laboratory Tests 01/16/20 12:26: White Blood Count 8.1 Blood Pressure 135 /55 Mean: 81 01/16/20 12:44: Lactic Acid Level 3.06*H Laboratory Tests 01/16/20 12:26: Creatinine 0.79, Platelet Count 224, Total Bilirubin 0.4 Results/Orders Lab Results Laboratory Tests Test 01/16/20 12:26 01/16/20 12:44 01/16/20 13:23 Range/Units White Blood Count 8.1 4.3-11.0 10^3/uL Red Blood Count 3.37 L 4.35-5.85 10^6/uL Hemoglobin 12.8 L 13.3-17.7 G/DL Hematocrit 35 L 40-54 % Mean Corpuscular Volume 105 H 80-99 FL Mean Corpuscular Hemoglobin 38 H 25-34 PG Mean Corpuscular Hemoglobin Concent 36 32-36 G/DL Red Cell Distribution Width 12.8 10.0-14.5 % Platelet Count 224 130-400 10^3/uL Mean Platelet Volume 9.0 7.4-10.4 FL Immature Granulocyte % (Auto) 0 % Neutrophils (%) (Auto) 49 42-75 % Lymphocytes (%) (Auto) 38 12-44 % Monocytes (%) (Auto) 9 0-12 % Eosinophils (%) (Auto) 3 0-10 % Basophils (%) (Auto) 1 0-10 % Neutrophils # (Auto) 4.0 1.8-7.8 X 10^3 Lymphocytes # (Auto) 3.1 1.0-4.0 X 10^3 Monocytes # (Auto) 0.7 0.0-1.0 X 10^3 Eosinophils # (Auto) 0.2 0.0-0.3 10^3/uL Basophils # (Auto) 0.0 0.0-0.1 10^3/uL Immature Granulocyte # (Auto) 0.0 0.0-0.1 10^3/uL Sodium Level 138 135-145 MMOL/L Potassium Level 3.8 3.6-5.0 MMOL/L Chloride Level 98 98-107 MMOL/L Carbon Dioxide Level 26 21-32 MMOL/L Anion Gap 14 5-14 MMOL/L Blood Urea Nitrogen 12 7-18 MG/DL Creatinine 0.79 0.60-1.30 MG/DL Estimat Glomerular Filtration Rate > 60 BUN/Creatinine Ratio 15 Glucose Level 112 H 70-105 MG/DL Calcium Level 8.7 8.5-10.1 MG/DL Corrected Calcium 8.6 8.5-10.1 MG/DL Total Bilirubin 0.4 0.1-1.0 MG/DL Aspartate Amino Transf (AST/SGOT) 18 5-34 U/L Alanine Aminotransferase (ALT/SGPT) 17 0-55 U/L Alkaline Phosphatase 76 40-136 U/L Troponin I < 0.30 <0.30 NG/ML Total Protein 6.9 6.4-8.2 GM/DL Albumin 4.1 3.2-4.5 GM/DL Lactic Acid Level 3.06 *H 0.50-2.00 MMOL/L Urine Color YELLOW Urine Clarity CLEAR Urine pH 8.0 5-9 Urine Specific [place] 1.015 L 1.016-1.022 Urine Protein NEGATIVE NEGATIVE Urine Glucose (UA) NEGATIVE NEGATIVE Urine Ketones NEGATIVE NEGATIVE Urine Nitrite NEGATIVE NEGATIVE Urine Bilirubin NEGATIVE NEGATIVE Urine Urobilinogen 0.2 < = 1.0 MG/DL Urine Leukocyte Esterase NEGATIVE NEGATIVE Urine RBC (Auto) NEGATIVE NEGATIVE Urine RBC NONE /HPF Urine WBC 0-2 /HPF Urine Squamous Epithelial Cells RARE /HPF Urine Crystals NONE /LPF Urine Bacteria MODERATE H /HPF Urine Casts NONE /LPF Urine Mucus NEGATIVE /LPF Urine Culture Indicated YES My Orders Orders - JANVENSTALEJO LANTIGUA DO Ed Iv/Invasive Line Start (01/16/20 12:32) Cbc With Automated Diff (01/16/20 12:32) Comprehensive Metabolic Panel (01/16/20 12:32) Troponin I Fs (01/16/20 12:32) Urinalysis (01/16/20 12:32) Lactic Acid Analyzer (01/16/20 12:32) Ekg Tracing (01/16/20 12:32) Chest 1 View Ap/Pa Only (01/16/20 12:32) Ns Iv 500 Ml (Sodium Chloride 0.9%) (01/16/20 13:30) Urine Culture (01/16/20 13:23) Vital Signs/I&O 01/16/20 01/16/20 12:25 14:09 Temp 36.3 36.5 Pulse 62 65 Resp 15 16 B/P (MAP) 135/55 (81) 164/65 (81) Pulse Ox 97 99 O2 Delivery Room Air Capillary Refill : Less Than 3 Seconds Blood Pressure Mean: 81 Progress Note : Progress Note patient awake, alert and in no distress. Able to communicate that he is not having chest pain or any other complaints other than some non-specific pain in his right foot/ great toe without any appreciable exam abnormality. Suspect arthritic pain. Patients daughter allowed to help with communicating w patient and was able to see him without complaint. Explained to them normal work up and advised to follow up for any change or progression of his symptoms. Mild non- specific elevation of lactic acid, given fluid bolus. Well appearing and actually somewhat jovial and engaging despite his aphasia. ECG Initial ECG Impression Time: 12:30 Initial ECG Rate: 60 Initial ECG Rhythm: Normal Sinus Initial ECG Intervals: Normal Initial ECG Impression: Normal Initial ECG Comparisson: No Previous ECG Available Comment RBBB Departure Impression Primary Impression: Chest pain Qualified Codes: R07.9 - Chest pain, unspecified Disposition: 01 HOME, SELF-CARE Condition: Stable Departure-Patient Inst. Decision time for Depature: 13:35 Referrals: SELF,JOSÉ MIGUEL NUÑEZ (PCP/Family) Primary Care Physician Patient Instructions: Chest Pain (DC) Add. Discharge Instructions: Follow up with your PCP (or [place] [facility] doctor) in 2 to 3 days for re-evaluation. ER sooner if worse. All discharge instructions reviewed with patient and/or family. Voiced understanding. ALEJO MICHAEL DO Jan 16, 2020 13:18
[2020-01-16] MEDS ORDERED: NS IV 500 ML 500 ML IV SCH (13:30)
[2020-01-16 13:41] LABS: BACTERIA,URINE MODERATE /HPF; BILIRUBIN,URINE NEGATIVE (NEGATIVE); CLARITY,URINE CLEAR; COLOR,URINE YELLOW; GLUCOSE, URINE (UA) NEGATIVE (NEGATIVE); KETONES,URINE NEGATIVE (NEGATIVE); LEUKOCYTE ESTERASE ,URINE NEGATIVE (NEGATIVE); NITRITE,URINE NEGATIVE (NEGATIVE); PROTEIN,URINE NEGATIVE (NEGATIVE); SQUAMOUS EPITHELIAL CELL,UR RARE /HPF; WBC,URINE 0-2 /HPF
[2020-01-16 14:09] VITALS: BP 164/65
== END 2020-01-16 14:08 | disposition home or self-care (01) ==
LOC: EDUNIT# 12:21 → ER FS 12:24
DX: R07.9 Chest pain, unspecified (principal); E11.9 Type 2 diabetes mellitus without complications; I25.2 Old myocardial infarction; E78.00 Pure hypercholesterolemia, unspecified; F32.9 Major depressive disorder, single episode, unspecified; I10 Essential (primary) hypertension; Z83.3 Family history of diabetes mellitus; Z82.49 Family history of ischemic heart disease and other diseases of the circulatory system; Z91.041 Radiographic dye allergy status; Z88.8 Allergy status to other drugs, medicaments and biological substances; Z87.891 Personal history of nicotine dependence; Z86.73 Personal history of transient ischemic attack (TIA), and cerebral infarction without residual deficits; Z95.9 Presence of cardiac and vascular implant and graft, unspecified; Z95.5 Presence of coronary angioplasty implant and graft; Z79.84 Long term (current) use of oral hypoglycemic drugs; Z79.82 Long term (current) use of aspirin
CPT/HCPCS: 36415; 71045; 80053; 81000; 83605; 84484; 85025; 87077; 87088

== ENCOUNTER → 2020-02-13 | Outpatient (CLI) | payer MEDICARE ==
[~2020-02-13] MED LIST changes: +BAMLANIVIMAB 700 MG in NS 200 ML IV ONE; +EPINEPHrine INJECTION 1 MG/ML AMP IM PRN; +diphenhydrAMINE 50 MG/ML INJ (BENADRYL) IV PRN
[2020-02-13 11:20] VITALS: BP 128/62
[2020-02-13 13:40] VITALS: BP 132/70
== END ==
LOC: INFUSION 11:32
PROVIDERS: ATTEND Family Medicine
DX: U07.1 COVID-19 (principal)

== ENCOUNTER 2020-02-19 06:17 | Emergency (ER) | payer MEDICARE ==
[~2020-02-19] VITALS: Ht 180.3 cm; Wt 83.9 kg
[~2020-02-19 06:17] MED LIST changes: -BAMLANIVIMAB 700 MG in NS 200 ML IV ONE; -EPINEPHrine INJECTION 1 MG/ML AMP IM PRN; -diphenhydrAMINE 50 MG/ML INJ (BENADRYL) IV PRN
--- NOTE | 2020-02-19 06:33 | ED Respiratory ---
General Chief Complaint: Respiratory Problems Stated Complaint: POS COVID Source: EMS Exam Limitations: no limitations History of Present Illness Date Seen by Provider: Feb 19, 2020 Time Seen by Provider: 06:20 Initial Comments 89-year-old [facility] with concern of low oxygen saturations morning. Staff evidently checked on him and said they couldn't get his sats above 90 percent. He normally is on 2 L per nasal cannula. No reported respiratory distress, however he was also stated to be COVID positive and received a BAMLANIVIMAB infusion yesterday without incident. Patient is non- verbal, secondary to a previous CVA, but comprehends and does communicate some with nods and gestures. On EMS arrival his sats were in the 90's on 4 liters/nc Allergies and Home Medications Allergies Coded Allergies: dapagliflozin (Verified Allergy, Unknown, 11/22/17) donepezil (Verified Allergy, Unknown, 11/22/17) iodine (Verified Allergy, Unknown, 11/22/17) Home Medications Acetaminophen 500 Mg Tablet, 500 MG PO Q6H Prescribed by: KEY BERMUDEZ on 04/05/19 0856 Aspirin 81 Mg Tablet.dr, 81 MG PO HS, (Reported) Benzonatate 100 Mg Capsule, 100 MG PO TID Prescribed by: MOSES TRAN on 06/11/19 1048 Carboxymethylcellulose Sodium 15 Ml Drops, 1 DROP OU TID, (Reported) Cefdinir 300 Mg Capsule, 300 MG PO BID Prescribed by: MARYAM MANZO on 05/22/18 1051 Citalopram Hydrobromide 40 Mg Tablet, 20 MG PO HS, (Reported) TAKES 1/2 (40MG) TABLET Clopidogrel Bisulfate 75 Mg Tablet, 75 MG PO DAILY, (Reported) Clotrimazole 15 Gm Cream..g., 15 GM TP BID Apply thin layer to rash on foot twice a day for 10 days to treat fungal rash Prescribed by: THOMAS CISNEROS on 06/29/18 1406 Cyanocobalamin (Vitamin B-12) 2,500 Mcg Tablet, 1,250 MCG PO DAILY, (Reported) TAKES 1/2 OF A (2,500 MCG) TABLET Donepezil HCl 10 Mg Tablet, 10 MG PO HS, (Reported) Doxazosin Mesylate 8 Mg Tablet, 8 MG PO HS, (Reported) Finasteride 5 Mg Tablet, 5 MG PO DAILY, (Reported) Fluoxetine HCl 10 Mg Capsule, 10 MG PO HS Prescribed by: JEREMIAS BERKOWITZ on 07/10/182042 Fluoxetine HCl 20 Mg Capsule, 20 MG PO HS Prescribed by: JEREMIAS BERKOWITZ on 07/10/182042 Furosemide 40 Mg Tablet, 40 MG PO DAILY Prescribed by: HIPOLITO AMANDA on 08/22/182130 Glyburide 5 Mg Tablet, 5 MG PO 0700,1630, (Reported) Guaifenesin 600 Mg Tab.er.12h, 600 MG PO Q12H PRN for URI, (Reported) Guaifenesin/Codeine Phosphate 118 Ml Liquid, 10 ML PO Q6H PRN for COUGH, (Reported) Hydrocodone Bit/Acetaminophen 1 Each Tablet, 1 TAB PO Q4H PRN for PAIN-MODERATE, (Reported) Loratadine 10 Mg Tablet, 10 MG PO DAILY, (Reported) Metformin HCl 500 Mg Tablet, 500 MG PO DAILY, (Reported) [place] 3 Polyunsat Fatty Acids 1,000 Mg Cap, 2,000 MG PO BID, (Reported) Phenol 177 Ml [place], 1 SPRAY MM Q2H PRN for SORE THROAT, (Reported) Phenytoin Sodium Extended 100 Mg Capsule, 200 MG PO BID, (Reported) TAKES 2 (100 MG) CAPSULES Polyethylene Glycol 3350 17 Gm Powd.pack, 17 GM PO DAILY, (Reported) Polyethylene Glycol 3350 17 Gm Powd.pack, 17 GM PO DAILY PRN Prescribed by: ALEJO MICHAEL on 06/12/19 1416 Silver Sulfadiazine 25 Gm Cream..g., TOP DAILY, (Reported) RIGHT ANKLE Simvastatin 40 Mg Tablet, 20 MG PO HS, (Reported) TAKES 1/2 OF A (40 MG) TABLET Tramadol HCl 50 Mg Tablet, 50 MG PO Q6H PRN for PAIN-MODERATE, (Reported) Tramadol HCl 50 Mg Tablet, 25 MG PO Q6H PRN for PAIN-SEVERE (8-10) Prescribed by: KEY BERMUDEZ on 04/05/19 0856 Trazodone HCl 50 Mg Tablet, 150 MG PO HS, (Reported) TAKES 3 (50MG) TABLETS Patient Home Medication List Home Medication List Reviewed: Yes Review of Systems Review of Systems Constitutional: no symptoms reported (unable to do ROS 2 to patient - nonverbal and mental status) Past Hnaeloh-Ynaplt-Udedou Hx Past Med/Social Hx: Reviewed Nursing Past Med/Soc Hx Patient Social History Alcohol Beverage of Choice: Wallace, Wine Type Used: Cigarettes Former Smoker, Quit: Feb 13, 1979 2nd Hand Smoke Exposure: No Recent Foreign Travel: No Contact w/Someone Who Travel: No Recent Hopitalizations: No Immunizations Up To Date PED Vaccines UTD: Yes Date of Pneumonia Vaccine: Dec 15, 2015 Date of Influenza Vaccine: Nov 20, 2017 Seasonal Allergies Seasonal Allergies: No Past Medical History Surgeries: Yes (KNEE SCOPE; CARDIAC CATHS WITH STENT; LOOP RECORDER) Cardiac, Coronary Stent, Orthopedic Respiratory: No Chronic Bronchitis Currently Using CPAP: No Currently Using BIPAP: No Cardiac: Yes (CARDIAC CATH WITH STENT; LOOP RECORDER IN PLACE) Coronary Artery Disease, Heart Attack, High Cholesterol, Hypertension Neurological: Yes (CVA WITH APHASIA; TRIGEMINAL NEURALGIA) Neuropathy, Stroke, TIA Sexually Transmitted Disease: No HIV/AIDS: No Genitourinary: Yes Prostate Problems Gastrointestinal: No Musculoskeletal: Yes (KNEE SCOPE) Endocrine: Yes Diabetes, Non-Insulin dep HEENT: Yes Cataract Loss of Vision: Denies Hearing Impairment: Denies Cancer: No Psychosocial: Yes Depression Integumentary: No Blood Disorders: No Adverse Reaction/Blood Tranf: No Family Medical History Diabetes mellitus 19 MOTHER FH: congestive heart failure 19 MOTHER Headache disorder Hypertension 19 FATHER Myocardial infarction 19 FATHER No Pertinent Family Hx Physical Exam Vital Signs - First Documented 02/19/20 06:18 Temp 37.1 Pulse 102 Resp 19 B/P (MAP) 131/73 (92) Pulse Ox 96 O2 Delivery Nasal Cannula O2 Flow Rate 2.00 Capillary Refill : Height: 5'8.00" Weight: 250lbs. 0oz. 113.780487gx; 28.00 BMI Method:Estimated General Appearance: WD/WN, no apparent distress Eyes: Bilateral Eye PERRL, Bilateral Eye EOMI HEENT: PERRL/EOMI, normal ENT inspection Neck: supple, normal inspection Respiratory: chest non-tender, lungs clear, normal breath sounds, no res piratory distress, no accessory muscle use Cardiovascular: regular rate, rhythm, no edema, no gallop Gastrointestinal: non tender, soft Extremities: non-tender, normal inspection, no pedal edema, no calf tenderness Neurologic/Psychiatric: no motor/sensory deficits, alert, normal mood/affect Skin: normal color, warm/dry Focused Exam Lactate Level 02/19/20 06:35: Lactic Acid Level 5.05*H Lactic Acid Level Laboratory Tests Test 02/19/20 06:35 Lactic Acid Level 5.05 MMOL/L (0.50-2.00) *H Progress/Results/Core Measures Suspected Sepsis SIRS Temperature: Pulse: Respiratory Rate: Laboratory Tests 02/19/20 06:35: White Blood Count 17.7H Blood Pressure / Mean: 02/19/20 06:35: Lactic Acid Level 5.05*H Laboratory Tests 02/19/20 06:35: Creatinine 0.77, Platelet Count 224, Total Bilirubin 0.9 Results/Orders Lab Results Laboratory Tests Test 02/19/20 06:35 02/19/20 08:13 Range/Units White Blood Count 17.7 H 4.3-11.0 10^3/uL Red Blood Count 3.38 L 4.35-5.85 10^6/uL Hemoglobin 12.9 L 13.3-17.7 G/DL Hematocrit 36 L 40-54 % Mean Corpuscular Volume 106 H 80-99 FL Mean Corpuscular Hemoglobin 38 H 25-34 PG Mean Corpuscular Hemoglobin Concent 36 32-36 G/DL Red Cell Distribution Width 12.5 10.0-14.5 % Platelet Count 224 130-400 10^3/uL Mean Platelet Volume 9.8 7.4-10.4 FL Immature Granulocyte % (Auto) 1 % Neutrophils (%) (Auto) 85 H 42-75 % Lymphocytes (%) (Auto) 7 L 12-44 % Monocytes (%) (Auto) 6 0-12 % Eosinophils (%) (Auto) 1 0-10 % Basophils (%) (Auto) 0 0-10 % Neutrophils # (Auto) 15.0 H 1.8-7.8 X 10^3 Lymphocytes # (Auto) 1.3 1.0-4.0 X 10^3 Monocytes # (Auto) 1.0 0.0-1.0 X 10^3 Eosinophils # (Auto) 0.1 0.0-0.3 10^3/uL Basophils # (Auto) 0.1 0.0-0.1 10^3/uL Immature Granulocyte # (Auto) 0.2 H 0.0-0.1 10^3/uL Neutrophils % (Manual) 75 % Lymphocytes % (Manual) 4 % Monocytes % (Manual) 6 % Eosinophils % (Manual) 1 % Basophils % (Manual) 0 % Band Neutrophils 12 % Atypical Lymphocytes 2 % Macrocytosis 2+ Sodium Level 136 135-145 MMOL/L Potassium Level 3.5 L 3.6-5.0 MMOL/L Chloride Level 95 L 98-107 MMOL/L Carbon Dioxide Level 24 21-32 MMOL/L Anion Gap 17 H 5-14 MMOL/L Blood Urea Nitrogen 28 H 7-18 MG/DL Creatinine 0.77 0.60-1.30 MG/DL Estimat Glomerular Filtration Rate > 60 BUN/Creatinine Ratio 36 Glucose Level 334 H 70-105 MG/DL Lactic Acid Level 5.05 *H 0.50-2.00 MMOL/L Calcium Level 8.7 8.5-10.1 MG/DL Corrected Calcium 9.2 8.5-10.1 MG/DL Total Bilirubin 0.9 0.1-1.0 MG/DL Aspartate Amino Transf (AST/SGOT) 31 5-34 U/L Alanine Aminotransferase (ALT/SGPT) 31 0-55 U/L Alkaline Phosphatase 94 40-136 U/L Total Protein 7.0 6.4-8.2 GM/DL Albumin 3.4 3.2-4.5 GM/DL Urine Color DARK YELLOW Urine Clarity CLOUDY H Urine pH 5.5 5-9 Urine Specific [place] 1.020 1.016-1.022 Urine Protein 1+ H NEGATIVE Urine Glucose (UA) 3+ H NEGATIVE Urine Ketones 1+ H NEGATIVE Urine Nitrite NEGATIVE NEGATIVE Urine Bilirubin 1+ H NEGATIVE Urine Urobilinogen 1.0 < = 1.0 MG/DL Urine Leukocyte Esterase NEGATIVE NEGATIVE Urine RBC (Auto) TRACE H NEGATIVE Urine RBC 0-2 /HPF Urine WBC 5-10 H /HPF Urine Squamous Epithelial Cells RARE /HPF Urine Crystals PRESENT H /LPF Urine Amorphous Sediment FEW EDUARDO URATES H /LPF Urine Bacteria LARGE H /HPF Urine Casts PRESENT /LPF Urine Hyaline Casts 2-5 H /LPF Urine Granular Casts 0-2 H /LPF Urine Mucus SMALL H /LPF Urine Culture Indicated YES My Orders Orders - ROVENSTINE,ALEJO L DO Ed Iv/Invasive Line Start (02/19/20 06:25) Cbc With Automated Diff (02/19/20 06:25) Comprehensive Metabolic Panel (02/19/20 06:25) Lactic Acid Analyzer (02/19/20 06:25) Chest 1 View Ap/Pa Only (02/19/20 06:25) Manual Differential (02/19/20 06:35) Ns Iv 500 Ml (Sodium Chloride 0.9%) (02/19/20 07:45) Ns Iv 500 Ml (Sodium Chloride 0.9%) (02/19/20 07:34) Urinalysis (02/19/20 07:54) Ns Iv 500 Ml (Sodium Chloride 0.9%) (02/19/20 08:30) Urine Culture (02/19/20 08:13) Vital Signs/I&O 02/19/20 06:18 Temp 37.1 Pulse 102 Resp 19 B/P (MAP) 131/73 (92) Pulse Ox 96 O2 Delivery Nasal Cannula O2 Flow Rate 2.00 Capillary Refill : Diagnostic Imaging Diagonstic Imaging: Xray Plain Films/CT/US/NM/MRI: chest Comments Date of Exam:02/19/20 CHEST 1 VIEW AP/PA ONLY INDICATION: Short of breath. Positive for COVID Portable chest shows normal heart size and vascularity. Patchy bilateral airspace disease present most noticeable in the right upper lobe. No consolidations are seen. There is no effusion or pneumothorax. Wireless heart monitor is present. IMPRESSION: Since 01/16/2020 there has developed patchy infiltrates in a pattern consistent with COVID pneumonia. Departure Impression Primary Impression: COVID-19 Additional Impression: UTI (urinary tract infection) Qualified Codes: N39.0 - Urinary tract infection, site not specified Disposition: HOME, SELF-CARE (back to [place]) Condition: Stable Departure-Patient Inst. Decision time for Depature: 08:43 Referrals: JOSÉ MIGUEL ROSALES MD (PCP/Family) Primary Care Physician Patient Instructions: Coronavirus Disease 2019 (COVID-19) (DC), Urinary Tract Infection, Adult ED Add. Discharge Instructions: Follow up with Dr ROSALES in 1 week for re-evaluation, ER sooner if worse. All discharge instructions reviewed with patient and/or family. Voiced understanding. Scripts Levofloxacin (Levofloxacin) 750 Mg Tablet 750 MG PO DAILY, #10 TAB Prov: ALEJO MICHAEL DO 02/19/20 ALEJO MICHAEL DO Feb 19, 2020 06:33
--- NOTE | 2020-02-19 07:12 | Diagnostic Imaging Report ---
INDICATION: Short of breath. Positive for COVID Portable chest shows normal heart size and vascularity. Patchy bilateral airspace disease present most noticeable in the right upper lobe. No consolidations are seen. There is no effusion or pneumothorax. Wireless heart monitor is present. IMPRESSION: Since 01/16/2020 there has developed patchy infiltrates in a pattern consistent with COVID pneumonia. INDICATION: Abdominal pain and constipation. TIME OF EXAM: 10:27 a.m. Correlation is made with prior study from 05/19/2018. Cardiac monitoring device overlies the left chest. The lungs are clear. There is no infiltrate or failure. There is no effusion. No free air is identified. Bowel gas pattern is nonobstructive. There is moderate stool throughout the colon suggestive of constipation. No pathologic calcifications are seen. IMPRESSION: Constipation. The study is otherwise unremarkable. Dictated by: Dictated on workstation # [id number]
[2020-02-19 07:13] LABS: HEMATOCRIT 36 % (40-54); HEMOGLOBIN 12.9 G/DL (13.3-17.7); MEAN CORPUSCULAR HEMOGLOBIN 38 PG (25-34); MEAN CORPUSCULAR HGB CONC 36 G/DL (32-36); MEAN CORPUSCULAR VOLUME 106 FL (80-99); MEAN PLATELET VOLUME 9.8 FL (7.4-10.4); PLATELET COUNT 224 10^3/uL (130-400); WHITE BLOOD COUNT 17.7 10^3/uL (4.3-11.0)
[2020-02-19 07:15] LABS: BASOPHILS % (AUTO) 0 % (0-10); EOSINOPHILS # (AUTO) 0.1 10^3/uL (0.0-0.3); EOSINOPHILS % (AUTO) 1 % (0-10); LYMPHOCYTES # (AUTO) 1.3 X 10^3 (1.0-4.0); LYMPHOCYTES % (AUTO) 7 % (12-44); MONOCYTES % (AUTO) 6 % (0-12); NEUTROPHILS % (AUTO) 85 % (42-75)
[2020-02-19 07:16] LABS: BASOPHILS # (AUTO) 0.1 10^3/uL (0.0-0.1)
[2020-02-19 07:26] LABS: ATYPICAL LYMPHOCYTES 2 %; BAND NEUTROPHILS 12 %; BASOPHILS % (MANUAL) 0 %; EOSINOPHILS % (MANUAL) 1 %; LYMPHOCYTES % (MANUAL) 4 %; MONOCYTES % (MANUAL) 6 %; NEUTROPHILS % (MANUAL) 75 %
[2020-02-19 07:31] LABS: ALANINE AMINOTRANSFERASE 31 U/L (0-55); ALBUMIN 3.4 GM/DL (3.2-4.5); ALKALINE PHOSPHATASE 94 U/L (40-136); BILIRUBIN,TOTAL 0.9 MG/DL (0.1-1.0); BUN/CREATININE RATIO 36; CALCIUM 8.7 MG/DL (8.5-10.1); CARBON DIOXIDE 24 MMOL/L (21-32); CHLORIDE 95 MMOL/L (98-107); CREATININE SERUM 0.77 MG/DL (0.60-1.30); GFR ESTIMATED > 60; GLUCOSE 334 MG/DL (70-105); POTASSIUM 3.5 MMOL/L (3.6-5.0); SODIUM 136 MMOL/L (135-145)
[2020-02-19] MEDS ORDERED: NS IV 500 ML 500 ML ONE (07:34)
[2020-02-19] MEDS ORDERED: NS IV 500 ML 500 ML IV SCH ×2 (07:45→08:30)
[2020-02-19 08:34] LABS: CLARITY,URINE CLOUDY; COLOR,URINE DARK YELLOW; GLUCOSE, URINE (UA) 3+ (NEGATIVE); KETONES,URINE 1+ (NEGATIVE); NITRITE,URINE NEGATIVE (NEGATIVE); PH,URINE 5.5 (5-9); PROTEIN,URINE 1+ (NEGATIVE)
[2020-02-19 08:35] LABS: BACTERIA,URINE LARGE /HPF; BILIRUBIN,URINE 1+ (NEGATIVE); LEUKOCYTE ESTERASE ,URINE NEGATIVE (NEGATIVE); RBC,URINE 0-2 /HPF; SQUAMOUS EPITHELIAL CELL,UR RARE /HPF
[2020-02-19 08:36] LABS: AMORPHOUS SEDIMENT,UR FEW AMOR URATES /LPF; GRANULAR CASTS,URINE 0-2 /LPF
[2020-02-19] MEDS ORDERED: LEVO750T39 PO (08:43)
[2020-02-19] MEDS ORDERED: LEVOFLOXACIN 750 MG/150 ML IV 150 ML IV ONE (08:45)
[2020-02-19 09:10] VITALS: BP 151/69
== END 2020-02-19 10:21 | disposition home or self-care (01) ==
LOC: EDUNIT# 06:17 → ER FS 06:20
DX: U07.1 COVID-19 (principal); N39.0 Urinary tract infection, site not specified; I10 Essential (primary) hypertension; I69.320 Aphasia following cerebral infarction; I25.10 Atherosclerotic heart disease of native coronary artery without angina pectoris; E78.00 Pure hypercholesterolemia, unspecified; E11.40 Type 2 diabetes mellitus with diabetic neuropathy, unspecified; F32.9 Major depressive disorder, single episode, unspecified; Z87.891 Personal history of nicotine dependence; Z88.8 Allergy status to other drugs, medicaments and biological substances; Z79.82 Long term (current) use of aspirin; Z79.84 Long term (current) use of oral hypoglycemic drugs; Z95.5 Presence of coronary angioplasty implant and graft
CPT/HCPCS: 36415; 71045; 80053; 81000; 83605; 85007; 85027; 87077; 87088; 87186

== ENCOUNTER → 2020-02-20 | Outpatient (CLI) | payer OTHER, MEDICARE ==
[~2020-02-20] MED LIST changes: +LEVO750T39 PO
== END ==
LOC: GIR 13:28
PROVIDERS: ATTEND Nurse Practitioner Family
DX: Z01.89 Encounter for other specified special examinations (principal)
CPT/HCPCS: 84145